=== PATIENT | female | born 1990 | race African-American/Black ===

== ENCOUNTER 2017-03-28 00:13 | Emergency (ER) | payer MEDICAID ==
[~2017-03-28] VITALS: Ht 154.9 cm; Wt 47.6 kg
[~2017-03-28 00:13] MED LIST: AVPAK LEVETIRA500 MG PO; BACLOFEN 10MG T10 MG PO; CALCITRIOL0.25 MCG PO; GABAPENTIN 600600 MG PO; KEFLEX 500MG.500 MG PO; KEPPRA750 MG PO; NORCO 325 MG-51 TAB PO; POTASSIUM CHLO10 ME3 PO; PREDNISONE 5MG.5 MG PO
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
[2017-03-28 02:18] VITALS: BP 132/93
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
--- OUTSIDE RECORDS SUMMARY | 2017-03-29 01:59 | External Medical Summary Rpt | CCD ---
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 -1 -2 .0 00 NT ti ON 25 7- 2- 00 00 UC ve AZ 41 20 20 90 [place] OL 14 17 17 94 E 6 31 CV 10 S 0 PH MG AR MA TA CY BL ET LL C, DB A CV S PH AR MA CY #0 54 37 BA 00 08 09 90 30 00 KE Ac CL 83 -1 -2 .0 00 NT ti OF 21 7- 2- 00 00 UC ve EN 02 20 20 90 [place] 41 17 17 94 10 0 24 CV S MG PH AR TA MA BL CY ET LL C, DB A CV S PH AR MA CY #0 54 37 FL 00 07 08 30 30 00 KE Ac UD 11 -2 -2 .0 00 NT ti RO 57 4- 5- 00 00 UC ve CO 03 20 20 90 [place] RT 30 17 17 47 IS 1 81 CV ON S E PH 0. AR 1 MA MG CY TA LL BL C, ET DB A CV S PH AR MA CY #0 54 37 GA 65 07 08 40 13 00 KE Ac BA 86 -2 -2 .0 00 NT ti PE 20 4- 5- 00 00 UC ve NT 52 20 20 90 [place] IN 30 17 17 47 5 82 CV 60 S 0 PH MG AR MA TA CY BL ET LL C, DB A CV S PH AR MA CY #0 54 37 SI 59 07 08 30 30 00 KE Ac RO 76 -2 -2 .0 00 NT ti LI 21 5- 5- 00 00 UC ve MU 00 20 20 90 [place] S 20 17 17 47 1 1 00 CV MG S PH TA AR BL MA ET CY LL C, DB A CV S PH AR MA CY #0 54 37 PE 45 07 08 60 1 00 KE Ac RM 80 -2 -2 .0 00 NT ti ET 20 4- 5- 00 00 UC ve HR 26 20 20 90 [place] IN 93 17 17 47 7 76 CV 5% S PH CR AR EA MA M CY LL C, DB A CV S PH AR MA CY #0 54 37 [place] 00 07 08 30 30 00 KE Ac ED 14 -2 -2 .0 00 NT ti NI 39 4- 5- 00 00 UC ve SO 73 20 20 90 [place] NE 91 17 17 47 0 77 CV 10 S PH MG AR MA TA CY BL ET LL C, DB A CV S PH AR MA CY #0 54 37 LE 00 07 08 30 30 00 KE Ac VO 37 -2 -2 .0 00 NT ti TH 81 4- 5- 00 00 UC ve YR 80 20 20 90 [place] OX 91 17 17 47 IN 0 78 CV E S 10 PH 0 AR MC MA G CY TA BL LL ET C, DB A CV S PH AR MA CY #0 54 37 [place] 51 07 08 [address] 67 -2 -2 0. 00 NT ti AT 24 4- 5- 00 00 UC ve IN 11 20 20 0 90 [place] 70 17 17 47 10 9 79 CV 0, S 00 PH 0 AR UN MA IT CY /M L LL BUCKNER C, SP DB A CV S PH AR MA CY #0 54 37 CA 23 07 08 80 20 00 KE Ac LC 15 -2 -2 .0 00 NT ti IT 50 4- 5- 00 00 UC ve RI 11 20 20 90 [place] OL 90 17 17 47 1 80 CV 0. S 5 PH MC AR G MA CA CY PS UL LL E C, DB A CV S PH AR MA CY #0 54 37 LE 43 07 08 60 15 00 KE Ac VE 54 -2 -2 .0 00 NT ti TI 70 3- 5- 00 00 UC ve RA 22 20 20 86 [place] CE 21 17 17 50 TA 5 21 CV M S 50 PH 0 AR MG MA CY TA BL LL ET C, DB A CV S PH AR MA CY #0 54 37 [place] 00 07 08 60 30 00 KE Ac ED 14 -1 -1 .0 00 NT ti NI 39 3- 8- 00 00 UC ve SO 74 20 20 83 [place] NE 01 17 17 80 5 0 31 CV S MG PH AR TA MA BL CY ET LL C, DB A CV S PH AR MA CY #0 54 37 KL 66 06 07 60 30 00 KE Ac OR 75 -2 -2 .0 00 NT ti -C 80 3- 8- 00 00 UC ve ON 17 20 20 84 [place] 00 17 17 90 M1 1 09 CV 0 S TA PH BL AR ET MA CY LL C, DB A CV S PH AR MA CY #0 54 37 HY 00 06 07 6. [address] 60 -1 -2 00 00 NT ti OC 33 5- 1- 0 00 UC ve OD 89 20 20 89 [place] ON 12 17 17 74 -A 1 90 CV CE S TA PH PR AR NO MA PH CY 7. LL 5- C, 32 5 DB A CV S PH AR MA CY #0 54 37 CL 65 06 07 28 7 00 KE Ac IN 86 -1 -2 .0 00 NT ti DA 20 5- 1- 00 00 UC ve MY 18 20 20 89 [place] CI 50 17 17 74 N 1 91 CV HC S L PH 15 AR 0 MA MG CY CA LL PS C, UL E DB A CV S PH AR MA CY #0 54 37 HY 59 06 07 60 [address] 76 -1 -1 .0 00 NT ti OC 20 4- 4- 00 00 UC ve OR 07 20 20 86 [place] TI 50 17 17 07 SO 1 28 CV NE S PH 20 AR MA MG CY TA LL BL C, ET DB A CV S PH AR MA CY #0 54 37 BA 00 06 07 90 30 00 KE Ac CL 83 -1 -1 .0 00 NT ti OF 21 4- 4- 00 00 UC ve EN 02 20 20 86 [place] 41 17 17 07 10 0 29 CV S MG PH AR TA MA BL CY ET LL C, DB A CV S PH AR MA CY #0 54 37 LE 65 06 07 60 15 00 KE Ac VE 86 -1 -1 .0 00 NT ti TI 20 4- 4- 00 00 UC ve RA 24 20 20 86 [place] CE 60 17 17 50 TA 8 21 CV M S 50 PH 0 AR MG MA CY TA BL LL ET C, DB A CV S PH AR MA CY #0 54 37 [place] 00 06 07 60 30 00 KE Ac ED 14 -1 -1 .0 00 NT ti NI 39 4- 4- 00 00 UC ve SO 74 20 20 83 [place] NE 01 17 17 80 5 0 31 CV S MG PH AR TA MA BL CY ET LL C, DB A CV S PH AR MA CY #0 54 37 [place] 00 04 05 60 30 00 KE Ac ED 14 -2 -2 .0 00 NT ti NI 39 2- 6- 00 00 UC ve SO 74 20 20 83 [place] NE 01 17 17 80 5 0 31 CV S MG PH AR TA MA BL CY ET LL C, DB A CV S PH AR MA CY #0 54 37 BA 00 04 05 90 30 00 KE Ac CL 83 -1 -1 .0 00 NT ti OF 21 8- 9- 00 00 UC ve EN 02 20 20 86 [place] 41 17 17 07 10 0 29 CV S MG PH AR TA MA BL CY ET LL C, DB A CV S PH AR MA CY #0 54 37 HY 59 04 05 60 [address] 76 -1 -1 .0 00 NT ti OC 20 8- 9- 00 00 UC ve OR 07 20 20 86 [place] TI 50 17 17 07 SO 1 28 CV NE S PH 20 AR MA MG CY TA LL BL C, ET DB A CV S PH AR MA CY #0 54 37 [place] 00 03 04 60 30 00 KE Ac ED 14 -2 -2 .0 00 NT ti NI 39 0- 1- 00 00 UC ve SO 74 20 20 83 [place] NE 01 17 17 80 5 0 31 CV S MG PH AR TA MA BL CY ET LL C, DB A CV S PH AR MA CY #0 54 37 HY 59 03 04 60 [address] 76 -0 -1 .0 00 NT ti OC 20 9- 4- 00 00 UC ve OR 07 20 20 86 [place] TI 50 17 17 07 SO 1 28 CV NE S PH 20 AR MA MG CY TA LL BL C, ET DB A CV S PH AR MA CY #0 54 37 BA 00 03 04 90 30 00 KE Ac CL 83 -0 -1 .0 00 NT ti OF 21 9- 4- 00 00 UC ve EN 02 20 20 86 [place] 41 17 17 07 10 0 29 CV S MG PH AR TA MA BL CY ET LL C, DB A CV S PH AR MA CY #0 54 37 [place] 00 02 03 60 30 00 KE Ac ED 14 -0 -1 .0 00 NT ti NI 39 9- 7- 00 00 UC ve SO 74 20 20 83 [place] NE 01 17 17 80 5 0 31 CV S MG PH AR TA MA BL CY ET LL C, DB A CV S PH AR MA CY #0 54 37 BA 00 01 02 90 30 00 KE Ac CL 83 -0 -1 .0 00 NT ti OF 21 5- 0- 00 00 UC ve EN 02 20 20 86 [place] 41 17 17 07 10 0 29 CV S MG PH AR TA MA BL CY ET LL C, DB A CV S PH AR MA CY #0 54 37 HY 59 01 02 60 [address] 76 -0 -1 .0 00 NT ti OC 20 5- 0- 00 00 UC ve OR 07 20 20 86 [place] TI 50 17 17 07 SO 1 28 CV NE S PH 20 AR MA MG CY TA LL BL C, ET DB A CV S PH AR MA CY #0 54 37 FL 00 01 02 30 30 00 KE Ac UD 11 -1 -1 .0 00 NT ti RO 57 1- 0- 00 00 UC ve CO 03 20 20 85 [place] RT 30 17 17 65 IS 1 24 CV ON S E PH 0. AR 1 MA MG CY TA LL BL C, ET DB A CV S PH AR MA CY #0 54 37 [place] 00 01 02 60 30 00 KE Ac ED 14 -1 -1 .0 00 NT ti NI 39 1- 0- 00 00 UC ve SO 74 20 20 83 [place] NE 01 17 17 80 5 0 31 CV S MG PH AR TA MA BL CY ET LL C, DB A CV S PH AR MA CY #0 54 37 GA 65 01 02 90 30 00 KE Ac BA 86 -1 -1 .0 00 NT ti PE 20 1- 0- 00 00 UC ve NT 52 20 20 86 [place] IN 30 17 17 34 5 32 CV 60 S 0 PH MG AR MA TA CY BL ET LL C, DB A CV S PH AR MA CY #0 54 37 FL 00 12 01 15 4 00 KE Ac UC 17 -0 -1 .0 00 NT ti ON 25 8- 3 00 UC ve AZ 41 20 20 85 [place] OL 14 16 17 80 E 6 63 CV 10 S 0 PH MG AR MA TA CY BL ET LL C, DB A CV S PH AR MA CY #0 54 37 CA 00 12 01 24 30 00 KE Ac LC 05 -0 -1 0. 00 NT ti IT 40 9- 3- 00 UC ve RI 00 20 20 0 85 [place] OL 72 16 17 80 5 64 CV 0. S 25 PH AR MC MA G CY CA PS LL UL C, E DB A CV S PH AR MA CY #0 54 37 AZ 00 12 01 60 30 00 KE Ac ED 14 -0 -1 .0 00 NT ti NI 39 9- 3- 00 UC ve SO 74 20 20 81 [place] NE 01 16 17 94 5 0 26 CV S MG PH AR TA MA BL CY ET LL C, DB A CV S PH AR MA CY #0 54 37 BA 00 12 90 30 00 KE Ac CL 17 -0 -1 .0 00 NT ti OF 24 9 00 UC ve EN 09 20 20 85 [place] 68 16 17 17 10 0 57 CV S MG PH AR TA MA BL CY ET LL C, DB A CV S PH AR MA CY #0 54 37 HY 59 12 01 60 [address] 76 -0 -1 .0 00 NT ti OC 20 9- 3- 00 UC ve OR 07 20 20 84 [place] TI 50 16 17 38 SO 1 86 CV NE S PH 20 AR MA MG CY TA LL BL C, ET DB A CV S PH AR MA CY #0 54 37 FL 00 12 01 30 30 00 KE Ac UD 11 -0 -0 .0 00 NT ti RO 57 1- 9- 00 00 UC ve CO 03 20 20 85 [place] RT 30 16 17 65 IS 1 24 CV ON S E PH 0. AR 1 MA MG CY TA LL BL C, ET DB A CV S PH AR MA CY #0 54 37 GA 65 12 01 90 30 00 KE Ac BA 86 -0 -0 .0 00 NT ti PE 20 1- 9- 00 UC ve NT 52 20 20 85 [place] IN 30 16 17 65 5 23 CV 60 S 0 PH MG AR MA TA CY BL ET LL C, DB A CV S PH AR MA CY #0 54 37 HY 00 10 10 0 30 3 [place] [address] 14 -2 -2 .0 LG 43 RC ti OC 31 8- 8- 00 RE 14 FELIZ ve OR 25 20 20 EN 0 NT TI 40 11 11 S SO 1 #1 KE NE 07 TA 76 N 20 # MG 10 77 TA 6 BL ET OX 00 10 10 0 10 5 WA 21 ME Ac YC 59 -2 -2 .0 LG 43 RC ti OD 10 8- 8- 00 RE 13 FELIZ ve ON 93 20 20 EN 9 NT -A 30 11 11 S CE 1 #1 KE TA 07 TA PR 76 N NO # PH EN 10 77 7. 6 5- 32 5 00 10 10 0 15 3 WA 21 WA Ac 59 -1 -1 .0 LG 38 GN ti 10 6- 6- 00 RE 31 ER ve 34 20 20 EN 4 90 11 11 S PH 5 #1 IL 07 LI 76 P # L 10 77 6 ME 68 10 10 0 7. 7 WA 21 WA Ac LO 18 -1 -1 00 LG 38 GN ti XI 00 6- 6- 0 RE 31 ER ve CA 50 20 20 EN 5 M 10 11 11 S PH 7. 3 #1 IL 5 07 LI MG 76 P # L TA BL 10 ET 77 6 CR 00 09 09 0 90 30 WA 21 YA Ac EO 03 -2 -2 .0 LG 32 ZI ti N 21 9- 9- 00 [address] 22 20 20 EN 4 40 11 11 S NA 24 1 #1 DA ,0 07 A 00 76 # UN IT 10 S 77 CA 6 PS UL E 00 09 09 0 40 30 WA 21 YA Ac 14 -2 -2 .0 LG 31 ZI ti 31 7- 8- 00 RE 24 GI ve 47 20 20 EN 3 31 11 11 S NA 0 #1 DA 07 A 76 # 10 77 6 RA 00 09 09 0 30 30 WA 21 YA Ac PA 00 -2 -2 .0 LG 31 ZI ti MU 81 7- 8- 00 RE 24 GI ve NE 04 20 20 EN 0 2 20 11 11 S NA 5 #1 DA MG 07 A 76 TA # BL ET 10 77 6 CA 00 09 09 0 30 30 WA 21 YA Ac LC 09 -2 -2 .0 LG 31 ZI ti IT 30 7- 7- 00 RE 24 GI ve RI 65 20 20 EN 1 OL 70 11 11 S NA 1 #1 DA 0. 07 A 25 76 # MC G 10 CA 77 PS 6 UL E LE 68 09 09 0 60 30 WA 21 YA Ac VE 18 -2 -2 .0 LG 31 ZI ti TI 00 7- 7- 00 RE 24 GI ve RA 11 20 20 EN 2 CE 41 11 11 S NA TA 6 #1 DA M 07 A 75 76 0 # MG 10 TA 77 BL 6 ET FL 68 09 09 0 14 14 WA 21 YA Ac UC 46 -2 -2 .0 LG 31 ZI ti ON 20 7- 7- 00 RE 24 GI ve AZ 10 20 20 EN 4 OL 43 11 11 S NA E 0 #1 DA 20 07 A 0 76 MG # TA 10 BL 77 ET 6 FL 00 09 09 0 30 30 WA 21 YA Ac UD 55 -2 -2 .0 LG 31 ZI ti RO 50 7- 7- 00 RE 24 GI ve CO 99 20 20 EN 5 RT 70 11 11 S NA IS 2 #1 DA ON 07 A E 76 0. # 1 MG 10 77 TA 6 BL ET LE 00 09 09 6 30 30 WA 21 YA Ac VO 52 -2 -2 .0 LG 31 ZI ti TH 71 7- 7- 00 RE 24 GI ve YR 34 20 20 EN 6 OX 51 11 11 S NA IN 0 #1 DA E 07 A 10 76 0 # MC G 10 TA 77 BL 6 ET 00 09 09 0 14 7 WA 21 YA Ac 14 -2 -2 .0 LG 28 ZI ti 31 1- 1- 00 RE 98 GI ve 47 20 20 EN 8 31 11 11 S NA 0 #1 DA 07 A 76 # 10 77 6 00 08 08 2 28 28 WA 21 KA Ac 43 -0 -2 .0 LG 11 LF ti 00 2- 9- 00 RE 06 ve 53 20 20 EN 1 01 11 11 S PR 4 #1 NA 07 C 76 # 10 77 6 FL 00 08 08 0 2. 2 WA 21 AN Ac UC 17 -2 -2 00 LG 19 DE ti ON 25 5- 5- 0 RE 28 RS ve AZ 41 20 20 EN 2 ON OL 21 11 11 S E 1 #1 TI 15 07 MO 0 76 TH MG # Y K TA 10 BL 77 ET 6 BUCKNER 53 08 08 0 40 10 WA 21 AN Ac LF 74 -2 -2 .0 LG 19 DE ti AM 60 5- 5- 00 RE 28 RS ve ET 27 20 20 EN 1 ON HO 20 11 11 S XA 5 #1 TI ZO 07 MO LE 76 TH -T # Y MP K 10 DS 77 6 TA BL ET CE 00 08 08 0 40 10 WA 21 AN Ac PH 09 -2 -2 .0 LG 19 DE ti AL 33 5- 5- 00 RE 28 RS ve EX 14 20 20 EN 0 ON IN 70 11 11 S 5 #1 TI 50 07 MO 0 76 TH MG # Y K CA 10 PS 77 UL 6 E LE 00 01 08 6 30 30 WA 20 RO Ac VO 52 -1 -2 .0 LG 45 SE ti TH 71 8- 4- 00 RE 28 ve YR 34 20 20 EN 7 BUCKNER OX 51 11 11 S SA IN 0 #1 N E 07 R 10 76 0 # MC G 10 TA 77 BL 6 ET LE 68 05 08 2 60 30 WA 21 SC Ac VE 18 -1 -2 .0 LG 00 FELIZ ti TI 00 6- 4- 00 RE 02 CK ve RA 11 20 20 EN 3 CE 41 11 11 S BR TA 6 #1 IA M 07 N 75 76 0 # MG 10 TA 77 BL 6 ET 00 06 08 3 15 30 WA 21 KA Ac 14 -2 -0 .0 LG 00 LF ti 31 9- 2- 00 RE 05 ve 47 20 20 EN 4 31 11 11 S PR 0 #1 NA 07 C 76 # 10 77 6 00 08 08 2 28 28 WA 21 KA Ac 43 -0 -0 .0 LG 11 LF ti 00 2- 2- 00 RE 06 ve 53 20 20 EN 1 01 11 11 S PR 4 #1 NA 07 C 76 # 10 77 6 VA 00 07 07 0 4. 2 CV 57 KA Ac LT 17 -2 -2 00 S 90 LF ti RE 30 7- 7- 0 PH 74 ve X 56 20 20 AR 1 50 11 11 MA PR GM 4 CY NA # C CA PL 05 ET 43 7 LE 00 01 07 6 30 30 WA 20 RO Ac VO 52 -1 -2 .0 LG 45 SE ti TH 71 8- 3- 00 RE 28 ve YR 34 20 20 EN 7 BUCKNER OX 51 11 11 S SA IN 0 #1 N E 07 R 10 76 0 # MC G 10 TA 77 BL 6 ET CA 00 07 07 0 24 30 WA 21 KA Ac LC 09 -2 -2 0. LG 06 LF ti IT 30 0- 0- 00 RE 78 ve RI 65 20 20 0 EN 8 OL 80 11 11 S PR 1 #1 NA 0. 07 C 5 76 MC # G CA 10 PS 77 UL 6 E LE 68 05 06 2 60 30 WA 21 SC Ac VE 18 -1 -2 .0 LG 00 FELIZ ti TI 00 6 00 RE 02 CK ve RA 11 20 20 EN 3 CE 41 11 11 S BR TA 6 #1 IA M 07 N 75 76 0 # MG 10 TA 77 BL 6 ET 00 06 06 3 15 30 WA 21 KA Ac 14 -2 -2 .0 LG 00 LF ti 31 9- 9 00 RE 05 ve 47 20 20 EN 4 31 11 11 S PR 0 #1 NA 07 C 76 # 10 77 6 LE 00 01 06 6 30 30 WA 20 RO Ac VO 52 -1 -1 .0 LG 45 SE ti TH 71 8- 8- 00 RE 28 ve YR 34 20 20 EN 7 BUCKNER OX 51 11 11 S SA IN 0 #1 N E 07 R 10 76 0 # MC G 10 TA 77 BL 6 ET BUCKNER 61 06 06 0 15 10 WA 20 AN Ac LF 31 -1 -1 .0 LG 94 DE ti AC 40 3- 3- 00 RE 57 RS ve ET 70 20 20 EN 3 ON AM 10 11 11 S ID 1 #1 TI E 07 MO 10 76 TH % # Y EY K E 10 DR 77 OP 6 S 00 05 05 2 15 30 WA 20 KA Ac 14 -1 -2 .0 LG 83 LF ti 31 3 00 RE 65 ve 47 20 20 EN 4 31 11 11 S PR 0 #1 NA 07 C 76 # 10 77 6 AZ 00 05 05 0 15 3 WA 20 NE Ac OM 78 -2 -2 .0 LG 89 WM ti ET 11 00 RE 40 AN ve FELIZ 83 20 20 EN 4 ZI 00 11 11 S LY NE 1 #1 ND 07 A 25 76 L # MG 10 TA 77 BL 6 ET 00 05 05 0 12 2 WA 20 HO Ac 59 -1 -1 .0 LG 85 RN ti 10 8- 8- 00 RE 67 E ve 34 20 20 EN 9 JE 90 11 11 S SS 5 #1 IC 07 A 76 G # 10 77 6 CY 59 05 05 0 7. 7 WA 20 HO Ac CL 74 -1 -1 00 LG 85 RN ti OB 60 8- 8- 0 RE 68 E ve EN 17 20 20 EN 0 JE ZA 71 11 11 S SS AZ 0 #1 IC IN 07 A E 76 G 10 # MG 10 77 TA 6 BL ET LE 00 01 05 6 30 30 WA 20 RO Ac VO 52 -1 -1 .0 LG 45 SE ti TH 71 8- 2- 00 RE 28 ve YR 34 20 20 EN 7 BUCKNER OX 51 11 11 S SA IN 0 #1 N E 07 R 10 76 0 # MC G 10 TA 77 BL 6 ET FL 00 04 04 1 15 13 WA 20 No Ac UC 17 -3 -3 .0 LG 79 t ti ON 25 0- 0- 00 RE 18 Av ve AZ 41 20 20 EN 7 ai OL 14 11 11 S la E 6 #1 bl 10 07 e 0 76 MG # TA 10 BL 77 ET 6 00 03 04 2 15 30 WA 20 KA Ac 14 -0 -2 .0 LG 60 LF ti 31 8- 2- 00 RE 76 ve 47 20 20 EN 9 31 11 11 S PR 0 #1 NA 07 C 76 # 10 77 6 LE 68 04 04 0 60 30 WA 20 SC Ac VE 18 -2 -2 .0 LG 76 FELIZ ti TI 00 2- 2- 00 RE 47 CK ve RA 11 20 20 EN 5 CE 41 11 11 S BR TA 6 #1 IA M 07 N 75 76 0 # MG 10 TA 77 BL 6 ET LE 00 01 04 6 30 30 WA 20 RO Ac VO 52 -1 -0 .0 LG 45 SE ti TH 71 8- 6- 00 RE 28 ve YR 34 20 20 EN 7 BUCKNER OX 51 11 11 S SA IN 0 #1 N E 07 R 10 76 0 # MC G 10 TA 77 BL 6 ET 00 03 03 2 15 30 WA 20 KA Ac 14 -0 -0 .0 LG 60 LF ti 31 8- 8- 00 RE 76 ve 47 20 20 EN 9 31 11 11 S PR 0 #1 NA 07 C 76 # 10 77 6 LE 00 01 03 6 30 30 WA 20 RO Ac VO 52 -1 -0 .0 LG 45 SE ti TH 71 8- 1- 00 RE 28 ve YR 34 20 20 EN 7 BUCKNER OX 51 11 11 S SA IN 0 #1 N E 07 R 10 76 0 # MC G 10 TA 77 BL 6 ET 00 02 02 0 [address] Ac 60 -2 -2 0. LG 56 AC ti 31 2- 2- 00 RE 03 K ve 29 [address] 55 11 11 S EV 8 #1 EN 07 J 76 # 10 77 6 [place] 00 02 02 0 [address] 60 -2 -2 0. LG 56 AC ti AT 31 2- 2- 00 RE 03 K ve IN 48 [address] 15 11 11 S EV 10 8 #1 EN 0, 07 J 00 76 0 # UN IT 10 /M 77 L 6 BUCKNER SP LE 68 02 02 0 60 30 WA 20 SC Ac VE 18 -1 -1 .0 LG 52 FELIZ ti TI 00 2- 2- 00 RE 41 CK ve RA 11 20 20 EN 8 CE 41 11 11 S BR TA 6 #1 IA M 07 N 75 76 0 # MG 10 TA 77 BL 6 ET LE 00 01 01 6 30 30 WA 20 RO Ac VO 52 -1 -2 .0 LG 45 SE ti TH 71 8- 3- 00 RE 28 ve YR 34 20 20 EN 7 BUCKNER OX 51 11 11 S SA IN 0 #1 N E 07 R 10 76 0 # MC G 10 TA 77 BL 6 ET AZ 00 01 01 2 60 30 CV 53 BE Ac ED 59 -1 -1 .0 S 54 ZE ti NI 15 1- 2- 00 PH 02 RR ve SO 05 20 20 AR A NE 21 11 11 MA SARAH 5 0 CY RG # E MG A 06 TA 94 BL 2 ET 00 08 01 5 28 28 WA 30 KA Ac 43 -3 -0 .0 LG 58 LF ti 00 1- 1- 00 RE 97 ve 53 20 20 EN 1 01 10 11 S PR 4 #7 NA 34 C 6 # 73 46 RA 00 06 01 1 60 30 WA 31 YA Ac PA 00 -0 -0 .0 LG 16 ZI ti MU 81 6- 1- 00 RE 47 GI ve NE 04 20 20 EN 2 1 10 10 11 S NA 5 #7 DA MG 34 A 6 TA # BL 73 ET 46 00 12 12 0 12 2 WA 31 EM Ac 59 -3 -3 .0 LG 15 ER ti 10 0- 0- 00 RE 60 Y ve 34 20 20 EN 3 DA 90 10 10 S RY 5 #7 L 34 L 6 # 73 46 LE 00 12 12 1 30 30 WA 31 RO Ac VO 52 -2 -2 .0 LG 10 SE ti TH 71 9- 0- 00 RE 56 ve YR 34 20 20 EN 8 BUCKNER OX 51 09 10 S SA IN 0 #7 N E 34 R 10 6 0 # MC 73 G 46 TA BL ET RA 00 08 12 8 30 30 CV 55 YA Ac PA 00 -0 -0 .0 S 29 ZI ti MU 81 5- 6- 00 PH 94 GI ve NE 04 20 20 AR 2 20 10 10 MA NA 5 CY DA MG # A TA 05 BL 43 ET 7 AZ 00 09 12 0 60 30 CV 55 BE Ac ED 59 -1 -0 .0 S 29 ZE ti NI 15 4- 6- 00 PH 78 RR ve SO 05 20 20 AR A NE 21 10 10 MA SARAH 5 0 CY RG # E MG A 05 TA 43 BL 7 ET FL 00 12 12 0 14 14 CV 55 TH Ac UC 17 -0 -0 .0 S 23 OR ti ON 25 1- 00 PH 73 NT ve AZ 41 20 20 AR ON OL 14 10 10 MA E 6 CY SH 10 # EL 0 BY MG 05 43 TA 7 BL ET AM 00 12 12 0 28 14 CV 55 TH Ac OX 78 -0 -0 .0 S 23 OR ti IC 12 1- PH 72 NT ve IL 61 20 20 AR ON LI 30 10 10 MA N 5 CY SH 50 # EL 0 BY MG 05 43 CA 7 PS UL E SE 59 11 11 2 30 30 CV 55 TH Ac RT 76 -2 -2 .0 S 15 OR ti RA 24 3- 3- 00 PH 57 NT ve LI 91 20 20 AR ON NE 00 10 10 MA 5 CY SH HC # EL L BY 10 05 0 43 MG 7 TA BL ET AC 00 11 11 0 12 1 WA 30 EM Ac ET 60 -1 -1 .0 LG 92 ER ti AM 32 0- 0- 00 RE 35 Y ve IN 33 20 20 EN 6 DA OP 83 10 10 S RY HE 2 #7 L N- 34 L CO 6 D # #3 73 46 TA BL ET RA 00 08 11 11 30 30 WA 30 YA Ac PA 00 -0 -0 .0 LG 47 ZI ti MU 81 5- 9- 00 RE 36 GI ve NE 04 20 20 EN 3 2 20 10 10 S NA 5 #7 DA MG 34 A 6 TA # BL 73 ET 46 FL 00 04 11 0 30 30 WA 30 RO Ac UD 55 -1 -0 .0 LG 90 SE ti RO 50 3- 7- 00 RE 54 ve CO 99 20 20 EN 0 BUCKNER [address] 70 10 10 S SA IS 2 #7 N ON 34 R E 6 0. # 1 73 MG 46 TA BL ET LE 00 12 11 2 30 30 WA 30 RO Ac VO 37 -2 -0 .0 LG 90 SE ti TH 81 9- 7- 00 RE 54 ve YR 80 20 20 EN 1 BUCKNER OX 90 09 10 S SA IN 1 #7 N E 34 R 10 6 0 # MC 73 G 46 TA BL ET LE 68 10 11 0 60 30 WA 96 HO Ac VE 18 -2 -0 .0 LG 52 PK ti TI 00 9- 2- 00 RE 76 IN ve RA 11 20 20 EN S CE 41 10 10 S SA TA 6 #4 RA M 08 H 75 2 E 0 # MG 40 82 TA BL ET AZ 00 10 10 0 10 3 WA 74 TH Ac OM 60 -2 -2 .0 LG 31 OR ti ET 35 2- 2- 00 RE 15 NT ve FELIZ 43 20 20 EN ON ZI 72 10 10 S NE 1 #7 SH 09 EL 12 3 BY .5 # 70 MG 93 TA BL ET 00 09 10 1 60 30 WA 96 BE Ac 14 -1 -2 .0 LG 15 ZE ti 31 4- 1- 00 RE 46 RR ve 47 20 20 EN A 51 10 10 S SARAH 0 #4 RG 08 E 2 A # 40 82 CA 00 04 10 1 48 30 WA 91 HO Ac LC 09 -2 -2 0. LG 27 WE ti IT 30 0- 1- 00 RE 78 LL ve RI 65 20 20 0 EN OL 80 10 10 S SARAH 1 #4 NA 0. 08 TH 5 2 AN MC # C G 40 CA 82 PS UL E CI 16 10 10 0 14 7 WA 30 SH Ac AZ 25 -1 -2 .0 LG 81 IE ti OF 20 8- 0- 00 RE 91 LD ve LO 51 20 20 EN 6 S XA 50 10 10 S DA CI 1 #7 NI N 34 EL HC 6 L # 50 73 0 46 MG TA B LE 00 12 09 8 30 30 WA 91 RO Ac VO 52 -2 -2 .0 LG 58 SE ti TH 71 9- 6- 00 RE 01 ve YR 34 20 20 EN [place] 51 09 10 S SA IN 0 #4 N E 08 R 10 2 0 # MC 40 G 82 TA BL ET LE 68 10 09 3 60 30 WA 94 AR Ac VE 18 -0 -2 .0 LG 51 TH ti TI 00 1- 6- 00 RE 36 UR ve RA 11 20 20 EN CE 41 09 10 S TO TA 6 #4 DD M 08 75 2 0 # MG 40 82 TA BL ET 00 09 09 2 60 30 WA 30 BE Ac 14 -1 -1 .0 LG 64 ZE ti 31 4- 4- 00 RE 98 RR ve 47 20 20 EN 1 A 51 10 10 S SARAH 0 #7 RG 34 E 6 A # 73 46 FL 00 04 09 0 30 30 WA 95 RO Ac UD 55 -1 -1 .0 LG 00 SE ti RO 50 3- 3- 00 RE 26 ve CO 99 20 20 EN BUCKNER RT 70 10 10 S SA IS 2 #4 N ON 08 R E 2 0. # 1 40 MG 82 TA BL ET RA 00 08 09 11 30 30 WA 30 YA Ac PA 00 -0 -0 .0 LG 47 ZI ti MU 81 5- 3- 00 RE 36 GI ve NE 04 20 20 EN 3 2 20 10 10 S NA 5 #7 DA MG 34 A 6 TA # BL 73 ET 46 SE 59 08 09 3 15 32 WA 30 KA Ac RT 76 -3 -0 .0 LG 58 LF ti RA 24 1- 2- 00 RE 97 ve LI 91 20 20 EN 0 NE 00 10 10 S PR 5 #7 NA HC 34 C L 6 10 # 0 73 MG 46 TA BL ET 00 08 08 5 28 28 WA 30 KA Ac 43 -3 -3 .0 LG 58 LF ti 00 1- 1- 00 RE 97 ve 53 20 20 EN 1 01 10 10 S PR 4 #7 NA 34 C 6 # 73 46 LE 00 12 08 8 30 30 WA 91 RO Ac VO 52 -2 -2 .0 LG 58 SE ti TH 71 9- 4- 00 RE 01 ve YR 34 20 20 EN [place] 51 09 10 S SA IN 0 #4 N E 08 R 10 2 0 # MC 40 G 82 TA BL ET LE 68 10 08 3 60 30 WA 94 AR Ac VE 18 -0 -2 .0 LG 51 TH ti TI 00 1- 4- 00 RE 36 UR ve RA 11 20 20 EN CE 41 09 10 S TO TA 6 #4 DD M 08 75 2 0 # MG 40 82 TA BL ET 00 02 08 18 28 NU 36 FI Ac 05 -0 -1 4. FA 91 LI ti 37 3- 8- 00 CT 1 PO ve 59 20 20 0 OR 62 10 10 CH [address] A H CY 59 08 08 0 15 5 WA 30 PR Ac CL 74 -1 -1 .0 LG 51 LL ti OB 60 5- 5- 00 RE 80 ER ve EN 17 20 20 EN 1 ZA 71 10 10 S BR AZ 0 #7 IA IN 34 N E 6 J 10 # 73 MG 46 TA BL ET FL 00 04 08 0 30 30 WA 30 RO Ac UD 11 -1 -0 .0 LG 45 SE ti RO 57 3- 8- 00 RE 21 ve CO 03 20 20 EN 6 BUCKNER RT 30 10 10 S SA IS 1 #7 N ON 34 R E 6 0. # 1 73 MG 46 TA BL ET RA 00 08 08 11 30 30 WA 30 YA Ac PA 00 -0 -0 .0 LG 47 ZI ti MU 81 5- 5- 00 RE 36 GI ve NE 04 20 20 EN 3 2 20 10 10 S NA 5 #7 DA MG 34 A 6 TA # BL 73 ET 46 FL 00 07 07 1 15 13 WA 30 YA Ac UC 17 -3 -3 .0 LG 45 ZI ti ON 25 1 00 RE 15 GI ve AZ 41 20 20 EN 9 OL 14 10 10 S NA E 6 #7 DA 10 34 A 0 6 MG # 73 TA 46 BL ET LE 00 12 07 8 30 30 WA 91 RO Ac VO 52 -2 -2 .0 LG 58 SE ti TH 71 9- 4- 00 RE 01 ve YR 34 20 20 EN [place] 51 09 10 S SA IN 0 #4 N E 08 R 10 2 0 # MC 40 G 82 TA BL ET LE 00 10 07 5 60 30 WA 93 AR Ac VE 37 -0 -2 .0 LG 05 TH ti TI 85 1- 4- 00 RE 40 UR ve RA 61 20 20 EN CE 77 09 10 S TO TA 8 #4 DD M 08 75 2 0 # MG 40 82 TA BL ET 00 08 07 2 60 30 WA 91 YA Ac 14 -1 -1 .0 LG 95 ZI ti 31 4- 6- 00 RE 17 GI ve 47 20 20 EN 31 09 10 S NA 0 #4 DA 08 A 2 # 40 82 00 02 07 18 28 NU 36 FI Ac 05 -0 -0 4. FA 91 LI ti 37 3- 6- 00 CT 1 PO ve 59 20 20 0 OR 62 10 10 CH [address] A H LE 00 10 06 5 60 30 WA 93 AR Ac VE 37 -0 -2 .0 LG 05 TH ti TI 85 1- 8- 00 RE 40 UR ve RA 61 20 20 EN CE 77 09 10 S TO TA 8 #4 DD M 08 75 2 0 # MG 40 82 TA BL ET LE 00 12 06 8 30 30 WA 91 RO Ac VO 52 -2 -2 .0 LG 58 SE ti TH 71 9- 7- 00 RE 01 ve YR 34 20 20 EN [place] 51 09 10 S SA IN 0 #4 N E 08 R 10 2 0 # MC 40 G 82 TA BL ET FL 00 04 06 0 30 30 WA 91 RO Ac UD 11 -1 -2 .0 LG 06 SE ti RO 57 3- 7- 00 RE 06 ve CO 03 20 20 EN BUCKNER RT 30 10 10 S SA IS 1 #4 N ON 08 R E 2 0. # 1 40 MG 82 TA BL ET RA 00 06 06 0 60 30 92 YA Ac PA 00 -0 -0 .0 LG 33 ZI ti MU 81 5- 5- 00 RE 06 GI ve NE 04 20 20 EN 1 10 10 10 S NA 5 #4 DA MG 08 A 2 TA # BL 40 ET 82 BU[place]NER 61 06 06 0 15 15 MD 92 KA Ac LF 31 -0 -0 .0 LG 38 LF ti AC 40 1- 1- 00 RE 56 ve ET 70 20 20 EN AM 10 10 10 S PR ID 1 #4 NA E 08 C 10 2 % # EY [address] OP S LE 00 12 05 8 30 30 91 RO Ac VO 52 -2 -2 .0 LG 58 SE ti TH 71 9- 9- 00 RE 01 ve YR 34 20 20 EN [place] 51 09 10 S SA IN 0 #4 N E 08 R 10 2 0 # MC 40 G 82 TA BL ET LE 68 10 05 7 60 30 WA 91 AR Ac VE 18 -0 -2 .0 LG 20 TH ti TI 00 1- 2- 00 RE 06 UR ve RA 11 20 20 EN CE 41 09 10 S TO TA 6 #4 DD M 08 75 2 0 # MG 40 82 TA BL ET 00 12 05 2 84 84 91 RO Ac 43 -2 -1 .0 LG 95 SE ti 00 9- 5- 00 RE 18 ve 53 20 20 EN [facility] 01 09 10 S SA 4 #4 N 08 R 2 # 40 82 FL 00 04 05 0 30 30 91 RO Ac UD 11 -1 -1 .0 LG 06 SE ti RO 57 3- 5- 00 RE 06 ve CO 03 20 20 EN [place] RT 30 10 10 S SA IS 1 #4 N ON 08 R E 2 0. # 1 40 MG 82 TA BL ET 00 08 05 2 60 30 91 YA Ac 14 -1 -1 .0 LG 95 ZI ti 31 4- 5- 00 RE 17 GI ve 47 20 20 EN 31 09 10 S NA 0 #4 DA 08 A 2 # 40 82 AC 00 05 05 0 12 2 91 EL Ac ET 60 -1 -1 .0 LG 83 LE ti AM 32 1- 1- 00 RE 55 MA ve IN 33 20 20 EN N OP 83 10 10 S PR HE 2 #4 CH N- 08 AE CO 2 L D # #3 40 82 TA BL ET LE 00 12 05 8 30 30 91 RO Ac VO 52 -2 -0 .0 LG 58 SE ti TH 71 9- 1- 00 RE 01 ve YR 34 20 20 EN [place] 51 09 10 S SA IN 0 #4 N E 08 R 10 2 0 # MC 40 G 82 TA BL ET CA 00 04 04 1 48 30 91 HO Ac LC 09 -2 -2 0. LG 27 WE ti IT 30 0- 1- 00 RE 78 LL ve RI 65 20 20 0 EN OL 80 10 10 S SARAH 1 #4 NA 0. 08 TH 5 2 AN MC # C G 40 CA 82 PS UL E LE 68 10 04 7 60 30 91 AR Ac VE 18 -0 -1 .0 LG 20 TH ti TI 00 1- 7- 00 RE 06 UR ve RA 11 20 20 EN CE 41 09 10 S TO TA 6 #4 DD M 08 75 2 0 # MG 40 82 TA BL ET FL 00 04 04 0 30 30 91 RO Ac UD 11 -1 -1 .0 LG 06 SE ti RO 57 3- 3- 00 RE 06 ve CO 03 20 20 EN [facility] RT 30 10 10 S SA IS 1 #4 N ON 08 R E 2 0. # 1 40 MG 82 TA BL ET RA 00 04 04 0 60 30 91 YA Ac PA 00 -1 -1 .0 LG 08 ZI ti MU 81 3- 3- 00 RE 12 GI ve NE 04 20 20 EN 1 10 10 10 S NA 5 #4 DA MG 08 A 2 TA # BL 40 ET 82 LE 00 12 03 11 30 30 WA 29 RO Ac VO 52 -2 -3 .0 LG 47 SE ti TH 71 9- 1- 00 RE 11 ve YR 34 20 20 EN 4 [place] 51 09 10 S SA IN 0 #7 N E 34 R 10 6 0 # MC 73 G 46 TA BL ET 00 12 03 4 84 84 WA 29 RO Ac 43 -2 -1 .0 LG 47 SE ti 00 9- 3- 00 RE 11 ve 53 20 20 EN 3 [facility] 01 09 10 S SA 4 #7 N 34 R 6 # 73 46 LE 68 10 03 12 60 30 WA 29 AR Ac VE 18 -0 -1 .0 LG 09 TH ti TI 00 1- 3 RE 96 UR ve RA 11 20 20 EN 5 CE 41 09 10 S TO TA 6 #7 DD M 34 75 6 0 # MG 73 46 TA BL ET CA 00 03 03 0 80 5 WA 90 No Ac LC 09 -0 -0 .0 LG 10 t ti IT 30 7 7- 00 RE 26 Av ve RI 65 20 20 EN ai OL 80 10 10 S la 1 #4 bl 0. 08 e 5 2 MC # G 40 CA 82 PS UL E CH 00 11 02 01 30 30 WA 29 JA Ac LO 37 -0 -1 .0 LG 17 CK ti RO 80 3- 1- 00 RE 63 SO ve TH 15 20 20 EN 6 N IA 00 09 10 # EL ZI 1 IZ DE 07 AB 34 ET 25 6 H 0 C MG TA BL ET LE 68 10 02 03 60 30 WA 29 AR Ac VE 18 -0 -1 .0 LG 09 TH ti TI 00 1- RE 96 UR ve RA 11 20 20 EN 5 CE 41 09 10 # TO TA 6 DD M 07 75 34 0 6 MG TA BL ET AM 00 01 01 00 28 14 CV 51 KA Ac OX 09 -1 -2 .0 S 86 LF ti IC 33 4- 8- 00 PH 13 ve IL 10 20 20 AR LI 90 10 10 MA PR N 5 CY NA 50 C 0 #5 MG 43 7 CA PS UL E FL 00 01 01 00 15 14 CV 51 KA Ac UC 17 -1 -2 .0 S 86 LF ti ON 25 4- 8- 00 PH 12 ve AZ 41 20 20 AR OL 14 10 10 MA PR E 6 CY NA 10 C 0 #5 MG 43 7 TA BL ET HY 00 01 01 00 30 5 CV [address] 55 -0 -1 .0 S 78 LF ti OX 50 6- 4- 00 PH 61 ve YZ 30 20 20 AR IN 20 10 10 MA PR E 2 CY NA PA C M #5 50 43 7 MG CA P AZ 00 08 01 02 60 30 WA 28 YA Ac ED 59 -1 -1 .0 LG 77 ZI ti NI 15 4- 4- 00 RE 12 GI ve SO 44 20 20 EN 1 NE 20 09 10 # NA 5 DA 10 07 A 34 MG 6 TA BL ET LE 00 12 01 00 30 30 WA 29 RO Ac VO 52 -2 -1 .0 LG 47 SE ti TH 71 9- 4- 00 RE 11 ve YR 34 20 20 EN 4 [place] 51 09 10 # SA IN 0 N E 07 R 10 34 0 6 MC G TA BL ET 00 12 01 00 84 84 WA 29 RO Ac 43 -2 -1 .0 LG 47 SE ti 00 9- 4- 00 RE 11 ve 53 20 20 EN 3 [facility] 01 09 10 # SA 4 N 07 R 34 6 FL 00 12 12 00 15 13 WA 29 YA Ac UC 17 -2 -3 .0 LG 42 ZI ti ON 25 3- - 00 RE 24 GI ve AZ 41 20 20 EN 4 OL 14 09 09 # NA E 6 DA 10 07 A 0 34 MG 6 TA BL ET LE 68 10 12 02 60 30 WA 29 AR Ac VE 18 -0 -3 .0 LG 09 TH ti TI 00 1- - 00 RE 96 UR ve RA 11 20 20 EN 5 CE 41 09 09 # TO TA 6 DD M 07 75 34 0 6 MG TA BL ET 00 08 12 04 28 28 WA 28 No Ac 43 -1 -1 .0 LG 77 t ti 00 5- 7- 00 RE 58 Av ve 53 20 20 EN 8 ai 01 09 09 # la 4 bl 07 e 34 6 VA 00 11 12 00 14 7 WA 29 KA Ac LT 17 -3 -1 .0 LG 30 LF ti RE 30 0- 7- 00 RE 75 ve X 56 20 20 EN 7 1 50 09 09 # PR GM 4 NA 07 C CA 34 PL 6 ET 00 01 12 05 18 28 NU 32 FI Ac 05 -0 -1 4. FA 08 LI ti 37 7- 7- 00 CT 2 PO ve 59 20 20 0 OR 62 09 09 CH 0 IN C AL EX AN DR A H FL 00 11 12 00 12 10 WA 29 YA Ac UC 17 -2 -0 .0 LG 27 ZI ti ON 25 3- 3- 00 RE 67 GI ve AZ 41 20 20 EN 1 OL 14 09 09 # NA E 6 DA 10 07 A 0 34 MG 6 TA BL ET LE 68 10 12 01 60 30 WA 29 AR Ac VE 18 -0 -0 .0 LG 09 TH ti TI 00 1- 3- 00 RE 96 UR ve RA 11 20 20 EN 5 CE 41 09 09 # TO TA 6 DD M 07 75 34 0 6 MG TA BL ET LE 00 05 12 05 30 30 WA 28 RO Ac VO 52 -1 -0 .0 LG 55 SE ti TH 71 3- 3 00 RE 67 ve YR 34 20 20 EN 9 [place] 51 09 09 # SA IN 0 N E 07 R 10 34 0 6 MC G TA BL ET 00 11 11 00 20 3 WA 29 No Ac 59 -1 -1 .0 LG 22 t ti 10 3 9 00 RE 82 Av ve 34 20 20 EN 9 ai 90 09 09 # la 5 bl 07 e 34 6 00 08 11 03 28 28 WA 28 No Ac 43 -1 -1 .0 LG 77 t ti 00 00 RE 58 Av ve 53 20 20 EN 8 ai 01 09 09 # la 4 bl 07 e 34 6 PE 00 11 11 00 40 10 WA 29 No Ac NI 09 -1 -1 .0 LG 22 t ti CI 31 RE 82 Av ve LL 17 20 20 EN 8 ai IN 41 09 09 # la 0 bl VK 07 e 34 50 6 0 MG TA BL ET RA 00 05 11 02 30 30 WA 28 YA Ac PA 00 -2 -1 .0 LG 38 ZI ti MU 81 00 RE 81 GI ve NE 04 20 20 EN 3 2 20 09 09 # NA 5 DA MG 07 A 34 TA 6 BL ET AZ 00 08 11 01 60 30 WA 28 YA Ac ED 59 -1 -1 .0 LG 77 ZI ti NI 15 4 9 00 RE 12 GI ve SO 44 20 20 EN 1 NE 20 09 09 # NA 5 DA 10 07 A 34 MG 6 TA BL ET FL 00 09 11 01 14 13 WA 28 YA Ac UC 17 -2 -1 .0 LG 95 ZI ti ON 25 00 RE 15 GI ve AZ 41 20 20 EN 5 OL 14 09 09 # NA E 6 DA 10 07 A 0 34 MG 6 TA BL ET CH 00 11 11 00 30 30 WA 29 JA Ac LO 37 -0 -1 .0 LG 17 CK ti RO 80 3 9- 00 RE 63 SO ve TH 15 20 20 EN 6 N IA 00 09 09 # EL ZI 1 IZ DE 07 AB 34 ET 25 6 H 0 C MG TA BL ET LE 68 10 11 00 60 30 WA 29 AR Ac VE 18 -0 -0 .0 LG 09 TH ti TI 00 00 RE 96 UR ve RA 11 20 20 EN 5 CE 41 09 09 # TO TA 6 DD M 07 75 34 0 6 MG TA BL ET LE 00 05 11 04 30 30 WA 28 RO Ac VO 52 -1 -0 .0 LG 55 SE ti TH 71 3- 5- 00 RE 67 ve YR 34 20 20 EN 9 [place] 51 09 09 # SA IN 0 N E 07 R 10 34 0 6 MC G TA BL ET 00 01 10 18 21 NU 32 FI Ac 05 -0 -2 4. FA 80 LI ti 37 7- 8- 00 CT 3 PO ve 59 20 20 0 OR 62 09 09 CH [address] A H 00 08 10 02 28 28 WA 28 No Ac 43 -1 -2 .0 LG 77 t ti 00 5- 2- 00 RE 58 Av ve 53 20 20 EN 8 ai 01 09 09 # la 4 bl 07 e 34 6 LE 00 03 10 04 60 30 WA 28 GI Ac VE 37 -2 -0 .0 LG 46 LB ti TI 85 3- 8- 00 RE 19 ER ve RA 61 20 20 EN 2 T CE 77 09 09 # DO TA 8 NA M 07 LD 75 34 L 0 6 MG TA BL ET FL 00 09 10 00 14 13 28 YA Ac UC 17 -2 -0 .0 LG 95 ZI ti ON 25 1- 8- 00 RE 15 GI ve AZ 41 20 20 EN 5 OL 14 09 09 # NA E 6 DA 10 07 A 0 34 MG 6 TA BL ET 00 02 10 04 18 21 NU 32 FI Ac 05 -0 -0 4. FA 08 LI ti 37 8- 8- 00 CT 2 PO ve 59 20 20 0 OR 62 08 09 CH 0 IN C AL EX AN DR A H LE 00 05 10 03 30 30 WA 28 RO Ac VO 52 -1 -0 .0 LG 55 SE ti TH 71 3- 8- 00 RE 67 ve YR 34 20 20 EN 9 [place] 51 09 09 # SA IN 0 N E 07 R 10 34 0 6 MC G TA BL ET 00 08 09 01 28 28 WA 28 No Ac 43 -1 -2 .0 LG 77 t ti 00 5- 4- 00 RE 58 Av ve 53 20 20 EN 8 ai 01 09 09 # la 4 bl 07 e 34 6 LE 00 05 09 02 30 30 WA 28 RO Ac VO 52 -1 -1 .0 LG 55 SE ti TH 71 3- 0- 00 RE 67 ve YR 34 20 20 EN 9 [place] 51 09 09 # SA IN 0 N E 07 R 10 34 0 6 MC G TA BL ET 00 08 08 00 28 28 WA 28 No Ac 43 -1 -2 .0 LG 77 t ti 00 5- 7- 00 RE 58 Av ve 53 20 20 EN 8 ai 01 09 09 # la 4 bl 07 e 34 6 AZ 00 08 08 00 60 30 WA 28 YA Ac ED 59 -1 -2 .0 LG 77 ZI ti NI 15 4- 7- 00 RE 12 GI ve SO 44 20 20 EN 1 NE 20 09 09 # NA 5 DA 10 07 A 34 MG 6 TA BL ET LE 00 03 08 03 60 30 WA 28 GI Ac VE 37 -2 -2 .0 LG 46 LB ti TI 85 3- 7- 00 RE 19 ER ve RA 61 20 20 EN 2 T CE 77 09 09 # DO TA 8 NA M 07 LD 75 34 L 0 6 MG TA BL ET LE 00 03 08 02 60 30 WA 28 AR Ac VE 37 -2 -1 .0 LG 46 TH ti TI 85 3- 3- 00 RE 19 UR ve RA 61 20 20 EN 2 CE 77 09 09 # TO TA 8 DD M 07 75 34 0 6 MG TA BL ET 00 02 08 03 18 21 NU 32 FI Ac 05 -0 -1 4. FA 08 LI ti 37 8- 3- 00 CT 2 PO ve 59 20 20 0 OR 62 08 09 CH 0 IN C AL EX AN DR A H LE 00 05 08 01 30 30 WA 28 RO Ac VO 52 -1 -1 .0 LG 55 SE ti TH 71 3- 3- 00 RE 67 ve YR 34 20 20 EN 9 [place] 51 09 09 # SA IN 0 N E 07 R 10 34 0 6 MC G TA BL ET AZ 00 10 07 01 60 30 WA 28 YA Ac ED 59 -0 -3 .0 LG 43 ZI ti NI 15 1- 0- 00 RE 36 GI ve SO 44 20 20 EN 9 NE 20 08 09 # NA 5 DA 10 07 A 34 MG 6 TA BL ET RA 00 05 07 01 30 30 WA 28 YA Ac PA 00 -2 -1 .0 LG 38 ZI ti MU 81 1- 6- 00 RE 81 GI ve NE 04 20 20 EN 3 2 20 09 09 # NA 5 DA MG 07 A 34 TA 6 BL ET 00 02 07 02 18 21 NU 32 FI Ac 05 -0 -1 4. FA 08 LI ti 37 8- 6- 00 CT 2 PO ve 59 20 20 0 OR 62 08 09 CH 0 IN C AL EX AN DR A H LE 00 03 07 01 60 30 WA 28 AR Ac VE 37 -2 -1 .0 LG 46 TH ti TI 85 3- 6- 00 RE 19 UR ve RA 61 20 20 EN 2 CE 77 09 09 # TO TA 8 DD M 07 75 34 0 6 MG TA BL ET YA 50 07 07 00 28 28 WA 28 AP Ac Z 41 -1 -1 .0 LG 61 PI ti 28 90 0- 6- 00 RE 43 AH ve 40 20 20 EN 9 TA 50 09 09 # LE BL 3 SL ET 07 IE 34 A 6 LE 00 05 07 00 30 30 WA 28 RO Ac VO 52 -1 -1 .0 LG 55 SE ti TH 71 3- 6- 00 RE 67 ve YR 34 20 20 EN 9 [place] 51 09 09 # SA IN 0 N E 07 R 10 34 0 6 MC G TA BL ET LE 00 03 06 00 60 30 WA 28 AR Ac VE 37 -2 -1 .0 LG 46 TH ti TI 85 3- 8- 00 RE 19 UR ve RA 61 20 20 EN 2 CE 77 09 09 # TO TA 8 DD M 07 75 34 0 6 MG TA BL ET 00 04 06 01 90 30 CV 48 YA Ac 04 -0 -1 .0 S 99 ZI ti 50 8- 8- 00 PH 71 GI ve 34 20 20 AR 66 09 09 MA NA 0 CY DA A #5 43 7 AZ 00 10 06 00 60 30 WA 28 YA Ac ED 59 -0 -1 .0 LG 43 ZI ti NI 15 1- 8- 00 RE 36 GI ve SO 44 20 20 EN 9 NE 20 08 09 # NA 5 DA 10 07 A 34 MG 6 TA BL ET RA 00 05 06 00 30 30 WA 28 YA Ac PA 00 -2 -0 .0 LG 38 ZI ti MU 81 1- 4- 00 RE 81 GI ve NE 04 20 20 EN 3 2 20 09 09 # NA 5 DA MG 07 A 34 TA 6 BL ET 00 02 06 01 18 21 NU 32 FI Ac 05 -0 -0 4. FA 08 LI ti 37 8- 4- 00 CT 2 PO ve 59 20 20 0 OR 62 08 09 CH 0 IN C AL EX AN DR A H LE 00 05 06 00 30 30 CV 49 RO Ac VO 37 -1 -0 .0 S 37 SE ti TH 81 3- 4- 00 PH 13 ve YR 80 20 20 AR [place] 90 09 09 MA SA IN 1 CY N E R 10 #5 0 43 MC 7 G TA BL ET LE 00 03 05 01 60 30 CV 48 GI Ac VE 37 -2 -2 .0 S 82 LB ti TI 85 3- 1- 00 PH 99 ER ve RA 61 20 20 AR T CE 77 09 09 MA DO TA 8 CY NA M LD 75 #5 L 0 43 MG 7 TA BL ET AZ 00 10 05 01 60 30 CV 48 YA Ac ED 59 -0 -0 .0 S 24 ZI ti NI 15 1- 7- 00 PH 68 GI ve SO 44 20 20 AR NE 20 08 09 MA NA 1 CY DA 10 A #5 MG 43 7 TA BL ET 00 04 05 00 84 84 CV 49 No Ac 43 -2 -0 .0 S 17 t ti 00 4 7- 00 PH 87 Av ve 53 20 20 AR ai 01 09 09 MA la 4 CY bl e #5 43 7 00 04 04 00 90 30 CV 48 YA Ac 04 -0 -2 .0 S 99 ZI ti 50 8- 3- 00 PH 71 GI ve 34 20 20 AR 66 09 09 MA NA 0 CY DA A #5 43 7 CA 00 04 04 00 48 30 CV 48 YA Ac LC 09 -0 -2 0. S 99 ZI ti IT 30 8- 3- 00 PH 72 GI ve RI 65 20 20 0 AR OL 80 09 09 MA NA 1 CY DA 0. A 5 #5 MC 43 G 7 CA PS UL E 00 02 04 00 18 28 NU 32 FI Ac 05 -0 -0 4. FA 08 LI ti 37 8- 9- 00 CT 2 PO ve 59 20 20 0 OR 62 08 09 CH 0 IN C AL EX AN DR A H 00 02 04 04 18 28 NU 20 FI Ac 05 -0 -0 4. FA 86 LI ti 37 8- 9- 00 CT 1 PO ve 59 20 20 0 OR 62 08 09 CH 0 IN C AL EX AN DR A H LE 00 03 04 00 60 30 CV 48 GI Ac VE 37 -2 -0 .0 S 82 LB ti TI 85 3- 9- 00 PH 99 ER ve RA 61 20 20 AR T CE 77 09 09 MA DO TA 8 CY NA M LD 75 #5 L 0 43 MG 7 TA BL ET FL 68 03 04 00 15 14 CV 48 YA Ac UC 46 -2 -0 .0 S 83 ZI ti ON 20 4- 9- 00 PH 51 GI ve AZ 10 20 20 AR OL 43 09 09 MA NA E 0 CY DA 20 A 0 #5 MG 43 7 TA BL ET 00 09 04 02 28 28 CV 48 No Ac 43 -0 -0 .0 S 24 t ti 00 9- 9- 00 PH 67 Av ve 53 20 20 AR ai 01 08 09 MA la 4 CY bl e #5 43 7 LE 00 02 03 01 90 30 CV 48 No Ac VE 37 -0 -2 .0 S 29 t ti TI 85 4- 6- 00 PH 87 Av ve RA 61 20 20 AR ai CE 57 09 09 MA la TA 8 CY bl M e 50 #5 0 43 MG 7 TA BL ET 00 09 03 01 28 28 CV 48 No Ac 43 -0 -1 .0 S 24 t ti 00 9 2 PH 67 Av ve 53 20 20 AR ai 01 08 09 MA la 4 CY bl e #5 43 7 LE 00 03 02 02 30 30 CV 45 No Ac VO 37 -1 -2 .0 S 43 t ti TH 81 7- 6 00 PH 83 Av ve YR 80 20 20 AR ai OX 90 08 09 MA la IN 1 CY bl E e 10 #5 0 43 MC 7 G TA BL ET 00 02 02 00 18 28 NU 20 FI Ac 05 -0 -2 4. FA 86 LI ti 37 8- 6- 00 CT 1 PO ve 59 20 20 0 OR 62 08 09 CH 0 IN C AL EX AN DR A H 00 02 02 02 18 28 NU 20 FI Ac 05 -0 -2 4. FA 86 LI ti 37 8- 6- 00 CT 1 PO ve 59 20 20 0 OR 62 08 09 CH 0 IN C AL EX AN DR A H 02 02 01 18 28 NU 30 FI Ac 05 -0 -2 4. FA 32 LI ti 37 8- 6- 00 CT 2 PO ve 59 20 20 0 OR 62 08 09 CH 0 IN C AL EX AN DR A H 02 02 01 18 28 NU 20 FI Ac 05 -0 -2 4. FA 86 LI ti 37 8- 6- 00 CT 1 PO ve 59 20 20 0 OR 62 08 09 CH 0 IN C AL EX AN DR A H 02 02 03 18 28 NU 20 FI Ac 05 -0 -2 4. FA 86 LI ti 37 8- 6- 00 CT 1 PO ve 59 20 20 0 OR 62 08 09 CH 0 IN C AL EX AN DR A H 00 02 02 00 18 28 NU 30 FI Ac 05 -0 -2 4. FA 32 LI ti 37 8- 6- 00 CT 2 PO ve 59 20 20 0 OR 62 08 09 CH 0 IN C AL EX AN DR A H AZ 00 10 02 00 60 30 CV 48 YA Ac ED 59 -0 -1 .0 S 24 ZI ti NI 15 1- 2- 00 PH 68 GI ve SO 44 20 20 AR NE 20 08 09 MA NA 1 CY DA 10 A #5 MG 43 7 TA BL ET LE 00 02 02 00 90 30 CV 48 No Ac VE 37 -0 -1 .0 S 29 t ti TI 85 4- 2- 00 PH 87 Av ve RA 61 20 20 AR ai CE 57 09 09 MA la TA 8 CY bl M e 50 #5 0 43 MG 7 TA BL ET 00 09 02 00 28 28 CV 48 No Ac 43 -0 -1 .0 S 24 t ti 00 9- 2- 00 PH 67 Av ve 53 20 20 AR ai 01 08 09 MA la 4 CY bl e #5 43 7 LE 00 03 01 01 30 30 CV 45 No Ac VO 37 -1 -3 .0 S 43 t ti TH 81 7- 0- 00 PH 83 Av ve YR 80 20 20 AR ai OX 90 08 09 MA la IN 1 CY bl E e 10 #5 0 43 MC 7 G TA BL ET LE 00 12 01 01 90 30 CV 47 No Ac VE 37 -0 -1 .0 S 67 t ti TI 85 1- 5- 00 PH 20 Av ve RA 61 20 20 AR ai CE 57 08 09 MA la TA 8 CY bl M e 50 #5 0 43 MG 7 TA BL ET LE 00 12 12 00 90 30 CV 47 No Ac VE 37 -0 -1 .0 S 67 t ti TI 85 1- 8- 00 PH 20 Av ve RA 61 20 20 AR ai CE 57 08 08 MA la TA 8 CY bl M e 50 #5 0 43 MG 7 TA BL ET VA 00 10 11 00 10 5 CV 47 No Ac LT 17 -2 -0 .0 S 30 t ti RE 30 4- 7- 00 PH 52 Av ve X 93 20 20 AR ai 50 30 08 08 MA la 0 8 CY bl MG e #[address] 7 ET LE 00 03 11 00 30 30 CV 45 No Ac VO 37 -1 -0 .0 S 43 t ti TH 81 7- 7- 00 PH 83 Av ve YR 80 20 20 AR ai OX 90 08 08 MA la IN 1 CY bl E e 10 #5 0 43 MC 7 G TA BL ET FL 68 09 09 00 15 15 CV 46 KA Ac UC 46 -1 -2 .0 S 91 LF ti ON 20 PH 16 ve AZ 10 20 20 AR OL 23 08 08 MA PR E 0 CY NA 10 C 0 #5 MG 43 7 TA BL ET Procedures Procedure DOS Code Location Performer Comment DRUG TEST [id number] [facility] ST DEFINITV [address] ID METH P HEALTHCAR HEALTHCAR DAY 1- E EDGE E EDGE DRUG CL THERAPEUT 61854 [place] 1/> 7 [facility] ARE[facility] TIC EACH 15 CENTER MIN EXERCISES APPLICATI 13084 [facility] MODALITY TIC TIC 1/> AREAS CENTER CENTER HOT/COLD PACKS [facility] 82645 [facility] TIC 7 [facility] MANIPULAT TIC [facility] SPINAL 3-[address] [facility] [address] [facility] PRSMV 7 [facility] COLES DIR OPTICAL PHYSICIAN OBS PER S DAY DRUG TEST [address] [facility] [address] PRSMV 7 [facility] ED[facility] E EDGE ANALYZERS APPL 63843 [facility] [place] MODALITY 7 [facility] 1/> AREAS TIC TRACTION CENTER MECHANICA L APPL 07137 [facility] MODALITY 7 [facility] 1/> AREAS TIC ELEC CENTER STIMJ UNATTENDE D [facility] 27251 B[facility] TIC 7 [facility] MANIPLTV TIC TX CENTER EXTRASPIN AL 1/> REGION CHIROPRAC 84966 [facility] LUK[facility] TIC 7 [facility] MANIPLTV TIC TX CENTER EXTRASPIN AL 1/> [facility]ION CH[facility]OP[facility]AC 75307 [facility] TIC 7 [facility] MANIPULAT TIC [facility] SPINAL 3-4 [facility] THERAPEUT 55716 [facility] P[facility] 1/> 7 [facility] AREAS TIC TIC EACH 15 CENTER CENTER MIN EXERCISES THERAPEUT 44349 [facility] PX 1/> 7 [facility] AREAS TIC EACH 15 CENTER MIN EXERCISES [facility] 57265 [facility] TIC 7 [facility] MANIPULAT TIC [facility] SPINAL 3-4 [facility] APPLICATI 22998 [facility] ON 7 [facility] MODALITY TIC TIC 1/> AREAS CENTER CENTER HOT/COLD PACKS [facility] 73898 [facility] TIC 7 [facility] MANIPLTV TIC TX CENTER EXTRASPIN AL 1/> REGION APPL 66559 [facility]AL[facility] 1/> AREAS TIC ELEC CENTER STIMJ UNATTENDE D APPL 29039 [facility] MODALITY 7 CHIROPRAC 1/> AREAS TIC TRACTION CENTER MECHANICA L APPL 68201 [facility] FEL[facility] MODALITY 7 CHIROPRAC 1/> AREAS TIC TRACTION CENTER MECHANICA L CH[facility]OPRAC 51639 [facility] TIC 7 [facility] MANIPLTV TIC TX CENTER EXTRASPIN AL 1/> REGION APPLICATI 87566 [facility] ON 7 [facility] MODALITY TIC TIC 1/> AREAS CENTER CENTER HOT/COLD PACKS MANUAL 58949 [facility] THERAPY 7 [facility] TQS 1/> TIC [facility] CENTER EACH 15 MINUTES [facility] 63831 [facility] TIC 7 [facility] MANIPULAT TIC [facility] SPINAL 3-4 [facility] MANUAL 42273 [facility] THERAPY 7 [facility] TQS 1/> TIC [facility] CENTER EACH 15 MINUTES [facility]AC 18609 [facility] TIC 7 [facility] MANIPULAT TIC [facility] SPINAL 3-4 [facility] APPLICATI 86752 [facility] ON 7 [facility] MODALITY TIC 1/> AREAS CENTER HOT/COLD PACKS [facility] 48091 [facility] TIC 7 [facility] MANIPLTV TIC TX CENTER EXTRASPIN AL 1/> REGION APPL 02194 [facility] MODALITY 7 [facility]AC CHIROPRAC 1/> AREAS TIC TIC TRACTION CENTER CENTER MECHANICA L APPL 16018 [facility] MODALITY 7 CHIROPRAC 1/> AREAS TIC TRACTION CENTER MECHANICA L APPL 36903 [facility] MODALITY 7 CHIROPRAC 1/> AREAS TIC ELEC CENTER STIMJ UNATTENDE D CHIROPRAC 73526 [facility] TIC 7 [facility] MANIPLTV TIC TX CENTER EXTRASPIN AL 1/> REGION APPLICATI 89986 [facility] 7 [facility] CHIROPRAC MODALITY TIC TIC 1/> AREAS CENTER CENTER [place] [address] [facility] 1/> AREAS 7 [facility] EACH 15 TIC MINUTES CENTER MASSAGE MANUAL 75335 [facility] THERAPY 7 [facility] TQS 1/> TIC [facility] CENTER EACH 15 MINUTES CH[facility]OPRAC 94521 [facility] TIC 7 [facility] MANIPULAT TIC [facility] SPINAL 3-4 [facility] MANUAL 00897 [facility] THERAPY 7 CHIR[facility]RAC TQS 1/> TIC [facility] CENTER EACH 15 MINUTES APPLICATI 94910 [facility] [place] [place] ON 7 CHIROPRAC CHIROPRAC MODALITY TIC TIC 1/> AREAS CENTER CENTER HOT/COLD PACKS CHIROPRAC 61153 [facility] TIC 7 CHIROPR[facility] MANIPLTV TIC TX CENTER EXTRASPIN AL 1/> REGION APPL 90145 [facility] MODALITY 7 CHIROPRAC 1/> AREAS TIC ELEC CENTER STIMJ UNATTENDE D APPL 61336 [facility] MODALITY 7 CHIROPRAC 1/> AREAS TIC TRACTION CENTER MECHANICA L CHIROPRAC 81147 [facility] TIC 7 [facility]IROPRAC MANIPULAT TIC [facility] SPINAL 3-4 [facility] APPL 84638 [facility] MODALITY 7 CHIROPRAC CHIROPRAC 1/> AREAS TIC TIC TRACTION CENTER CENTER MECHANICA L APPL 23474 [facility] MODALITY 7 CHIROPRAC 1/> AREAS TIC ELEC CENTER STIMJ UNATTENDE D CHIROPRAC 04633 [facility] TIC 7 CHIROPRAC MANIPLTV TIC TX CENTER EXTRASPIN AL 1/> REGION APPLICATI 89058 [facility] FEL[facility] ON 7 CHIROPRAC MODALITY TIC 1/> AREAS CENTER [place] [address] [facility] 1/> AREAS 7 CHIROPRAC EACH 15 TIC MINUTES CENTER MASSAGE CH[facility]OP[facility]AC 09911 [facility] TIC 7 [facility]IROPR[facility] MANIPULAT TIC [facility] SPINAL 3-4 [facility]IONS APPLICATI 43662 [facility] SHETTY ON 7 CHIROPRAC MODALITY TIC 1/> AREAS [place] [address] [facility] 1/> AREAS 7 CHIROPRAC EACH 15 TIC MINUTES CENTER MASSAGE CHIROPRAC 40519 [facility] TIC 7 CHIROPRAC MANIPLTV TIC TX CENTER EXTRASPIN AL 1/> REGION APPL 70995 [facility] MODALITY 7 CHIROPRAC 1/> AREAS TIC ELEC CENTER STIMJ UNATTENDE D APPL 66905 [facility] MODALITY 7 CHIROPRAC 1/> AREAS TIC TRACTION CENTER MECHANICA L CHIROPRAC 13178 [facility] TIC 7 CHIROPRAC MANIPULAT TIC [facility] CENTER SPINAL 3-4 REGIONS CHIROPRAC 07528 [facility] TIC 7 [facility] MANIPULAT TIC [facility] [place] [facility] SPINAL 3-4 [facility]IONS APPL 07780 [facility] MODALITY 7 CHIROPRAC 1/> AREAS TIC ELEC CENTER STIMJ UNATTENDE D APPL 17806 [facility] JODIE MODALITY 7 CHIROPRAC 1/> AREAS TIC TRACTION CENTER MECHANICA L CHIROPRAC 26307 [facility] T[facility] 7 CHIROPRAC MANIPLTV TIC TX CENTER EXTRASPIN AL 1/> [place] [address] [facility] 1/> AREAS 7 CHIROPRAC EACH 15 TIC MINUTES CENTER MASSAGE APPLICATI 02813 [facility] FELICIANO ON 7 CHIROPRAC MODALITY TIC 1/> AREAS CENTER HOT/COLD PACKS THERAPEUT 99824 LANNY FELICIANO IC PX 1/> 7 CHIROPRAC AREAS TIC EACH 15 CENTER MIN EXERCISES APPLICATI 86922 [facility] LUKING ON 7 CHIROPRAC MODALITY TIC 1/> AREAS CENTER [place] [address] LAN[facility] LUKING 1/> AREAS 7 CHIROPRAC EACH 15 TIC MINUTES CENTER MASSAGE CHIROPRAC 94581 [facility] LUKING TIC 7 CHIROPRAC MANIPLTV TIC TX CENTER EXTRASPIN AL 1/> REGION APPL 82339 [facility] LUKING MODALITY 7 CHIROPRAC 1/> AREAS TIC TRACTION CENTER MECHANICA L APPL 77070 [facility] LUKING MODALITY 7 CHIROPRAC 1/> AREAS TIC ELEC CENTER STIMJ UNATTENDE D SELF-CARE 83812 [facility] AQUINOKING /HOME 7 CHIROPRAC MGMT TIC TRAINING CENTER EACH 15 MINUTES CHIROPRAC 45784 [facility] PHILLIPS TIC 7 CHIROPRAC MANIPULAT TIC [facility] SPINAL 3-4 REGIONS CHIROPRAC 21076 [facility] JODIE TIC 7 CHIROPRAC MANIPULAT TIC B[facility] SPINAL 3-4 REGIONS SELF-CARE 84843 [facility] JODIE /HOME 7 CHIROPRAC MGMT TIC TRAINING CENTER EACH 15 MINUTES APPL 62918 [facility] PARKER MODALITY 7 CHIROPRAC 1/> AREAS TIC ELEC CENTER STIMJ UNATTENDE D CHIROPRAC 03124 [facility] PARKER TIC 7 CHIROPRAC MANIPLTV TIC TX CENTER EXTRASPIN AL 1/> [place] [address] LANNY PARKER 1/> AREAS 7 CHIROPRAC EACH 15 TIC MINUTES CENTER MASSAGE APPLICATI 87812 LANNY FELICIANO ON 7 CHIROPRAC MODALITY TIC 1/> AREAS CENTER HOT/COLD PACKS NONEMERGE A0100 LKLP CAC BENNETTS NCY 6 INC TRANSPORT TRANSPORT REGION 9 ATION CO ATION; L TAXI CHIROPRAC 13185 [facility] T[facility] 6 CHIROPRAC MANIPLTV TIC TX CENTER EXTRASPIN AL 1/> REGION CHIROPRAC 91808 [facility] BA[facility]UELOS TIC 6 CHIROPRAC MANIPULAT TIC [facility] [place] CENTER SPINAL 3-4 REGIONS THERAPEUT 62464 [facility] BA[facility]UELOS IC PX 1/> 6 CHIROPRAC AREAS TIC EACH 15 CENTER MIN EXERCISES THERAPEUT 22512 [facility]ELOS IC PX 1/> 6 CHIROPRAC AREAS TIC EACH 15 CENTER MIN EXERCISES CHIROPRAC 45261 [facility] TIC 6 CHIROPRAC MANIPULAT TIC B[facility] CENTER SPINAL 3-4 REGIONS APPL 73306 [facility] CA DAY 6 CHIROPRAC CHIROPRAC 1/> AREAS TIC TIC ELEC CENTER CENTER STIMJ UNATTENDE D CHIROPRAC 70339 [facility]UELOS TIC 6 CHIROPRAC MANIPLTV TIC TX CENTER EXTRASPIN AL 1/> REGION BLOOD 05837 THE THE COUNT [address] [place] [address] AUTOMATED HEMOGLOBI [address] THE THE N [address] [place] [address] [place] [address] THE THE AMYLASE [address] [place] [address] [place] [address] THE THE FREE [address] [place] [address] [place] [address] THE THE THYROID [address] [place] [address] NG HORMONE TSH COMPREHEN [id number] THE THE SIVE [address] [place] [address] [facility] [place] [address] THE THE LIPASE [address] [place] [address] [place] [address] THE THE PARATHORM [address] [place] [address] CALCIUM 609[address] THE THE IONIZED [address] [place] [address] COLLECTIO 98722 THE THE N VENOUS [address] [place] [address] VENIPUNCT URE THERAPEUT 11056 [facility] BA[facility]ELOS IC PX 1/> 6 CHIROPRAC AREAS TIC EACH 15 CENTER MIN EXERCISES CHIROPRAC 09079 [facility] [facility] TIC 6 CH[facility]OP[facility] MANIPULAT TIC [facility] SPINAL 3-4 [facility]IONS APPL 56309 [facility] CHIROPRAC 1/> AREAS TIC TIC TRACTION CENTER CENTER MECHANICA L CHIROPRAC 76779 [facility] T[facility] 6 CHIROPRAC MANIPLTV TIC TX CENTER EXTRASPIN AL 1/> REGION CHIROPRAC 57020 [facility] EDDA TIC 6 CH[facility]OPRAC MANIPLTV TIC TX CENTER EXTRASPIN AL 1/> [facility] APPL 63400 [facility] CHIROPRAC 1/> AREAS TIC TIC TRACTION CENTER CENTER MECHANICA L CHIROPRAC 25260 [facility] T[facility] 6 [facility]OPR[facility] MANIPULAT TIC [facility] SPINAL 3-4 REGIONS THERAPEUT 49300 [facility] [place] EDDA IC PX 1/> 6 CHIROPRAC AREAS TIC EACH 15 CENTER MIN EXERCISES THERAPEUT 62333 [facility] [place] EDDA IC PX 1/> 6 [facility] AREAS TIC EACH 15 CENTER MIN EXERCISES APPL 18041 [facility] CHIROPRAC 1/> AREAS TIC TIC TRACTION CENTER CENTER MECHANICA L CHIROPRAC 21008 [facility] TIC 6 CHIROPRAC MANIPULAT TIC [facility] SPINAL 3-4 REGIONS APPL 96450 [place] EDDA MODALITY 6 CHIROPRAC 1/> AREAS TIC ELEC CENTER STIMJ UNATTENDE D CHIROPRAC 46973 [facility] EDDA TIC 6 CHIROPRAC MANIPLTV TIC TX CENTER EXTRASPIN AL 1/> REGION CHIROPRAC 02337 [facility] [place] EDDA TIC 6 CHIROPRAC MANIPLTV TIC TX CENTER EXTRASPIN AL 1/> REGION SELF-CARE 44270 [place] [place] EDDA /HOME 6 CHIROPRAC MGMT TIC TRAINING CENTER EACH 15 MINUTES CHIROPRAC 36869 [place] EDDA TIC 6 CHIROPR[facility] MANIPULAT TIC [facility] SPINAL 3-4 REGIONS THERAPEUT 58391 [facility] IC PX 1/> 6 CHIROPRAC CHIROPRAC AREAS TIC TIC EACH 15 CENTER CENTER MIN EXERCISES RADIOLOGI 28593 [facility] R[facility] ALL C 6 MEDICAL EXAMINATI IMAGING ON FOOT 2 ASS VIEWS SURGICAL L3260 ADVANCED ADVANCED BOOT/SHOE 6 TECHNOLOG TECHNOLOG EACH IES INC IES INC APPL 71191 [facility] KURTISKSRAY BERNSTEIN 6 CHIROPRAC CHIROPRAC 1/> AREAS TIC TIC ELEC CENTER CENTER STIMJ UNATTENDE D CHIROPRAC 09293 [facility] TIC 6 CHIROPRAC MANIPULAT TIC [facility] SPINAL 3-4 REGIONS CHIROPRAC 27951 [facility] T[facility] 6 CHIROPRAC MANIPLTV TIC TX CENTER EXTRASPIN AL 1/> REGION THERAPEUT 48078 [facility] EDDA IC PX 1/> 6 CHIROPRAC AREAS TIC EACH 15 CENTER MIN EXERCISES THERAPEUT 82262 [facility] KURTISKSRAY IC PX 1/> 6 CHIROPRAC CHIROPRAC AREAS TIC TIC EACH 15 CENTER CENTER MIN EXERCISES CHIROPRAC 92631 [facility] EDDA TIC 6 CHIROPRAC GAR MANIPLTV TIC TX CENTER EXTRASPIN AL 1/> REGION CHIROPRAC 54956 [facility] EDDA TIC 6 CHIROPRAC GAR MANIPULAT TIC [facility] SPINAL 3-4 REGIONS CHIROPRAC 70259 [facility] [place] EDDA TIC 6 CHIROPRAC MANIPULAT TIC [facility] SPINAL 3-4 REGIONS CHIROPRAC 44387 [facility] EDDA TIC 6 CHIROPRAC MANIPLTV TIC TX CENTER EXTRASPIN AL 1/> REGION THERAPEUT 83790 [facility] EDDA IC PX 1/> 6 CHIROPRAC AREAS TIC EACH 15 CENTER MIN EXERCISES THERAPEUT 85231 [facility] RILEY IC PX 1/> 6 CH[facility]OPRAC AREAS TIC EACH 15 CENTER MIN EXERCISES CHIROPRAC 67277 [facility] LANNY TIC 6 CHIROPRAC CHIROPRAC MANIPLTV TIC TIC TX CENTER CENTER EXTRASPIN AL 1/> REGION CHIROPRAC 53999 [facility] EDDA TIC 6 CHIROPRAC MANIPULAT TIC [facility] SPINAL 3-4 REGIONS APPL 08829 [facility] EDDA MODALITY 6 CHIROPRAC 1/> AREAS TIC TRACTION CENTER MECHANICA L CHIROPRAC 95023 [facility] CHIROPRAC MANIPLTV TIC TX CENTER EXTRASPIN AL 1/> REGION THERAPEUT 96030 [facility] IC PX 1/> 6 CHIROPRAC CHIROPRAC AREAS TIC TIC EACH 15 CENTER CENTER MIN EXERCISES CHIROPRAC 11516 [facility] CHIROPRAC MANIPULAT TIC [facility] SPINAL 3-4 REGIONS BASIC 76165 [facility] METABOLIC 6 Y Y PANEL HOSPITAL HOSPITAL CALCIUM TOTAL COLLECTIO 81087 [facility] N VENOUS 6 Y Y BLOOD [facility] VENIPUNCT URE PROTHROMB 22621 [facility] IN TIME 6 Y Y [facility] [place] [facility] SSD THROMBOPL 70000 [facility] ASTIN 6 Y Y TIME HOSPITAL HOSPITAL PARTIAL PLASMA/WH OLE BLOOD BLOOD 87873 [facility] COUNT 6 Y Y COMPLETE HOSPITAL HOSPITAL AUTOMATED CHIROPRAC 10492 [facility] 6 CHIROPRAC GAR MANIPLTV TIC TX CENTER EXTRASPIN AL 1/> REGION CHIROPRAC 63126 [facility]IC 6 CHIROPRAC GAR MANIPULAT TIC [facility] SPINAL 3-4 REGIONS MANUAL 77873 [facility] CA THERAPY 6 CHIROPRAC CHIROPRAC TQS 1/> TIC TIC REGIONS CENTER CENTER EACH 15 MINUTES MANUAL 85106 [facility] EDDA THERAPY 6 CHIROPRAC TQS 1/> TIC REGIONS CENTER EACH 15 MINUTES THERAPEUT 21456 [facility] HULLKSRAY IC PX 1/> 6 CHIROPRAC CHIROPRAC AREAS TIC TIC EACH 15 CENTER CENTER MIN EXERCISES CHIROPRAC 44130 [facility] EDDA TIC 6 CHIROPRAC MANIPULAT TIC [facility] SPINAL 1-2 REGIONS CHIROPRAC 30680 [facility] EDDA TIC 6 CHIROPRAC MANIPLTV TIC TX CENTER EXTRASPIN AL 1/> REGION CHIROPRAC 07732 [facility] 6 CHIROPRAC GAR MANIPLTV TIC TX CENTER EXTRASPIN AL 1/> REGION CHIROPRAC 54134 [facility] T[facility] 6 CHIROPRAC GAR MANIPULAT TIC [facility] SPINAL 3-4 REGIONS THERAPEUT 27847 [facility] CA IC PX 1/> 6 CHIROPRAC CHIROPRAC AREAS TIC TIC EACH 15 CENTER CENTER MIN EXERCISES THERAPEUT 85040 [facility] IC PX 1/> 6 CHIROPRAC AREAS TIC EACH 15 CENTER MIN EXERCISES APPL 35855 [facility] MOD[facility]ITY 6 CHIROPRAC CHIROPRAC 1/> AREAS TIC TIC TRACTION CENTER CENTER MECHANICA L CHIROPRAC 01312 [facility]IC 6 CHIROPRAC MANIPULAT TIC [facility] SPINAL 3-4 REGIONS CHIROPRAC 38674 [facility] TIC 6 CHIROPRAC MANIPLTV TIC TX CENTER EXTRASPIN AL 1/> REGION CHIROPRAC 68034 [facility] TIC 6 CHIROPRAC GAR MANIPLTV TIC TX CENTER EXTRASPIN AL 1/> REGION CHIROPRAC 57531 [facility] TIC 6 CHIROPRAC GAR MANIPULAT TIC [facility] SPINAL 3-4 REGIONS APPL 21727 [facility] MODALITY 6 CHIROPRAC CHIROPRAC 1/> AREAS TIC TIC TRACTION CENTER CENTER MECHANICA L THERAPEUT 17825 [facility] IC PX 1/> 6 CHIROPRAC GAR AREAS TIC EACH 15 CENTER MIN EXERCISES THERAPEUT 20309 [facility] IC PX 1/> 6 CHIROPRAC GAR AREAS TIC EACH 15 CENTER MIN EXERCISES APPL 83136 [facility] CH[facility] CHIROPRAC 1/> AREAS TIC TIC TRACTION CENTER CENTER MECHANICA L CHIROPRAC 90451 [facility] TIC 6 CHIROPRAC GAR MANIPULAT TIC [facility] SPINAL 3-4 REGIONS CHIROPRAC 03290 [facility] TIC 6 CHIROPRAC GAR MANIPLTV TIC TX CENTER EXTRASPIN AL 1/> REGION CHIROPRAC 42502 [facility] TIC 6 CHIROPRAC MANIPLTV TIC TX CENTER EXTRASPIN AL 1/> REGION CHIROPRAC 40797 [facility] BAÑUELOS TIC 6 CHIROPRAC MANIPULAT TIC [facility] SPINAL 3-4 REGIONS THERAPEUT 32624 [facility] CA IC PX 1/> 6 CHIROPRAC CHIROPRAC AREAS TIC TIC EACH 15 CENTER CENTER MIN EXERCISES MANUAL 59208 [facility] THERAPY 6 CHIROPRAC TQS 1/> TIC REGIONS CENTER EACH 15 MINUTES MANUAL 60651 [facility] THERAPY 6 CHIROPRAC TQS 1/> TIC REGIONS CENTER EACH 15 MINUTES THERAPEUT 33907 KURTISKSRAY CA IC PX 1/> 6 CHIROPRAC CHIROPRAC AREAS TIC TIC EACH 15 CENTER CENTER MIN EXERCISES CHIROPRAC 38641 [facility] BAÑUELOS TIC 6 CHIROPRAC MANIPULAT TIC [facility] SPINAL 3-4 REGIONS CHIROPRAC 74001 [facility] BAÑUELOS TIC 6 CHIROPRAC MANIPLTV TIC TX CENTER EXTRASPIN AL 1/> REGION CHIROPRAC 13649 [facility] BAÑUELOS TIC 6 CHIROPRAC MANIPLTV TIC TX CENTER EXTRASPIN AL 1/> REGION CHIROPRAC 54712 [facility] BAÑUELOS TIC 6 CHIROPRAC MANIPULAT TIC [facility] SPINAL 3-4 REGIONS THERAPEUT 39658 [facility] IC PX 1/> 6 CHIROPRAC CHIROPRAC AREAS TIC TIC EACH 15 CENTER CENTER MIN EXERCISES MANUAL 79681 [facility] THERAPY 6 CHIROPRAC TQS 1/> TIC REGIONS CENTER EACH 15 MINUTES MANUAL 64880 [facility] THERAPY 6 CHIROPRAC TQS 1/> TIC REGIONS CENTER EACH 15 MINUTES THERAPEUT 41055 [facility] IC PX 1/> 6 CHIROPRAC CHIROPRAC AREAS TIC TIC EACH 15 CENTER CENTER MIN EXERCISES CHIROPRAC 17230 [facility] BAÑUELOS TIC 6 CHIROPRAC MANIPULAT TIC [facility] SPINAL 3-4 REGIONS CHIROPRAC 85362 [facility] 6 CHIROPRAC MANIPLTV TIC TX CENTER EXTRASPIN AL 1/> REGION CHIROPRAC 07814 [facility] BAÑUELOS TIC 6 CHIROPRAC GAR MANIPLTV TIC TX CENTER EXTRASPIN AL 1/> REGION CHIROPRAC 98997 [facility] BAÑUELOS TIC 6 CHIROPRAC GAR MANIPULAT TIC [facility] SPINAL 3-4 REGIONS THERAPEUT 36744 [facility] IC PX 1/> 6 CHIROPRAC CHIROPRAC AREAS TIC TIC EACH 15 CENTER CENTER MIN EXERCISES MANUAL 71307 [facility] THERAPY 6 CHIROPRAC GAR TQS 1/> TIC REGIONS CENTER EACH 15 MINUTES MANUAL 83093 [facility] THERAPY 6 CHIROPRAC TQS 1/> TIC REGIONS CENTER EACH 15 MINUTES THERAPEUT 56800 [facility] IC PX 1/> 6 CHIROPRAC CHIROPRAC AREAS TIC TIC EACH 15 CENTER CENTER MIN EXERCISES CHIROPRAC 79569 [facility] BAÑUELOS TIC 6 CHIROPRAC MANIPLTV TIC TX CENTER EXTRASPIN AL 1/> REGION CHIROPRAC 72303 [facility] 6 CHIROPRAC MANIPULAT TIC [facility] SPINAL 1-2 REGIONS CHIROPRAC 75021 [facility] BAÑUELOS TIC 6 CHIROPRAC GAR MANIPLTV TIC TX CENTER EXTRASPIN AL 1/> REGION CHIROPRAC 40599 [facility] BAÑUELOS TIC 6 CHIROPRAC GAR MANIPULAT TIC [facility] SPINAL 3-4 REGIONS CHIROPRAC 55102 [facility] TIC 6 CHIROPRAC CHIROPRAC MANIPULAT TIC TIC [facility] CENTER SPINAL 3-4 REGIONS CHIROPRAC 36065 [facility] BAÑUELOS TIC 6 CHIROPRAC GAR MANIPLTV TIC TX CENTER EXTRASPIN AL 1/> REGION CHIROPRAC 28130 [facility] BAÑUELOS TIC 5 CHIROPRAC GAR MANIPULAT TIC [facility] SPINAL 1-2 REGIONS CHIROPRAC 29671 [facility] EDDA TIC 5 CHIROPRAC GAR MANIPULAT TIC [facility] SPINAL 1-2 REGIONS CHIROPRAC 54102 [facility] EDDA TIC 5 CHIROPRAC GAR MANIPLTV TIC TX CENTER EXTRASPIN AL 1/> REGION THERAPEUT 60756 [facility] IC PX 1/> 5 CHIROPRAC GAR AREAS TIC EACH 15 CENTER MIN EXERCISES THERAPEUT 25937 [facility] IC PX 1/> 5 CHIROPRAC GAR AREAS TIC EACH 15 CENTER MIN EXERCISES CHIROPRAC 81646 [facility] HULLKSRAY TIC 5 CHIROPRAC CHIROPRAC MANIPLTV TIC TIC TX CENTER CENTER EXTRASPIN AL 1/> REGION CHIROPRAC 37475 [facility] H[facility] TIC 5 CHIROPRAC CHIROPRAC MANIPULAT TIC TIC [facility] CENTER SPINAL 1-2 REGIONS CHIROPRAC 22028 [facility] TIC 5 CHIROPRAC GAR MANIPULAT TIC [facility] SPINAL 3-4 REGIONS CHIROPRAC 29747 [facility] TIC 5 CHIROPRAC GAR MANIPLTV TIC TX CENTER EXTRASPIN AL 1/> REGION RADEX 92784 RADIOLOGY BRANDSER FOOT 5 SHEA COMPLETE ASSOCIATE MINIMUM 3 S OF NOTH VIEWS THERAPEUT 19325 [facility] IC PX 1/> 5 CHIROPRAC GAR AREAS TIC EACH 15 CENTER MIN EXERCISES CHIROPRAC 97978 [facility] TIC 5 CHIROPRAC GAR MANIPLTV TIC TX CENTER EXTRASPIN AL 1/> REGION CH[facility]OPRAC 16332 [facility] CHIROPRAC MANIPULAT TIC TIC [facility] CENTER SPINAL 1-2 REGIONS CHIROPRAC 36446 [facility] T[facility] 5 CHIROPRAC GAR MANIPULAT TIC [facility] SPINAL 1-2 REGIONS CHIROPRAC 93694 [facility] TIC 5 CHIROPRAC GAR MANIPLTV TIC TX CENTER EXTRASPIN AL 1/> REGION THERAPEUT 54285 [facility] IC PX 1/> 5 CHIROPRAC GAR AREAS TIC EACH 15 CENTER MIN EXERCISES THERAPEUT 53427 [facility] IC PX 1/> 5 CHIROPRAC GAR AREAS TIC EACH 15 CENTER MIN EXERCISES CHIROPRAC 90784 [facility] TIC 5 CHIROPRAC GAR MANIPLTV TIC TX CENTER EXTRASPIN AL 1/> REGION CHIROPRAC 08078 [facility] TIC 5 CHIROPRAC CHIROPRAC MANIPULAT TIC TIC [facility] CENTER SPINAL 1-2 REGIONS CHIROPRAC 58731 [facility] KURTISKSRAY TIC 5 CHIROPRAC CHIROPRAC MANIPULAT TIC TIC [facility] CENTER SPINAL 1-2 REGIONS CHIROPRAC 84997 [facility] TIC 5 CHIROPRAC CHIROPRAC MANIPLTV TIC TIC TX CENTER CENTER EXTRASPIN AL 1/> REGION THERAPEUT 23161 [facility] IC PX 1/> 5 CHIROPRAC GAR AREAS TIC EACH 15 CENTER MIN EXERCISES [facility]OPRAC 23401 [facility]OPR[facility] CHIROPRAC MANIPULAT TIC TIC [facility] CENTER SPINAL 1-2 REGIONS CHIROPRAC 76052 [facility] TIC 5 CHIROPRAC CHIROPRAC MANIPLTV TIC TIC TX CENTER CENTER EXTRASPIN AL 1/> REGION CHIROPRAC 40070 [facility] TIC 5 CHIROPRAC GAR MANIPLTV TIC TX CENTER EXTRASPIN AL 1/> REGION CHIROPRAC 67379 [facility] TIC 5 CHIROPRAC GAR MANIPULAT TIC [facility] SPINAL 1-2 REGIONS CHIROPRAC 67361 [facility] TIC 5 CHIROPRAC GAR MANIPULAT TIC [facility] SPINAL 1-2 REGIONS CHIROPRAC 00079 [facility] TIC 5 CHIROPRAC GAR MANIPLTV TIC TX CENTER EXTRASPIN AL 1/> REGION CHIROPRAC 46227 [facility] TIC 5 CHIROPRAC GAR MANIPULAT TIC [facility] SPINAL 1-2 REGIONS CHIROPRAC 30985 [facility]IC 5 CHIROPRAC GAR MANIPLTV TIC TX CENTER EXTRASPIN AL 1/> REGION CHIROPRAC 91593 [facility] TIC 5 CHIROPRAC GAR MANIPLTV TIC TX CENTER EXTRASPIN AL 1/> REGION CHIROPRAC 78787 [facility] BAÑUELOS TIC 5 CHIROPRAC GAR MANIPULAT TIC [facility] SPINAL 1-2 REGIONS THERAPEUT 37578 [facility] BAÑUELOS IC PX 1/> 5 CHIROPRAC GAR AREAS TIC EACH 15 CENTER MIN EXERCISES THERAPEUT 28620 [facility] BAÑUELOS IC PX 1/> 5 CHIROPRAC GAR AREAS TIC EACH 15 CENTER MIN EXERCISES CHIROPRAC 15618 [facility] BAÑUELOS TIC 5 CHIROPRAC GAR MANIPLTV TIC TX CENTER EXTRASPIN AL 1/> REGION CHIROPRAC 58439 [facility] BAÑUELOS TIC 5 CHIROPRAC GAR MANIPULAT TIC [facility] SPINAL 1-2 REGIONS CHIROPRAC 43259 [facility] BAÑUELOS TIC 5 CHIROPRAC GAR MANIPLTV TIC TX CENTER EXTRASPIN AL 1/> REGION CHIROPRAC 54749 [facility] BAÑUELOS TIC 5 CHIROPRAC GAR MANIPULAT TIC [facility] SPINAL 1-2 REGIONS THERAPEUT 46962 [facility] BAÑUELOS IC PX 1/> 5 CHIROPRAC GAR AREAS TIC EACH 15 CENTER MIN EXERCISES THERAPEUT 69745 [facility] BAÑUELOS IC PX 1/> 5 CHIROPRAC GAR AREAS TIC EACH 15 CENTER MIN EXERCISES CHIROPRAC 53664 [facility] BAÑUELOS TIC 5 CHIROPRAC GAR MANIPULAT TIC [facility] SPINAL 1-2 REGIONS CHIROPRAC 70635 [facility] BAÑUELOS TIC 5 CHIROPRAC GAR MANIPLTV TIC TX CENTER EXTRASPIN AL 1/> REGION CHIROPRAC 11235 [facility] BAÑUELOS TIC 5 CHIROPRAC GAR MANIPLTV TIC TX CENTER EXTRASPIN AL 1/> REGION CHIROPRAC 70577 [facility] BAÑUELOS TIC 5 CHIROPRAC GAR MANIPULAT TIC [facility]ENTER SPINAL 1-2 REGIONS CHIROPRAC 50492 [facility] HULLMARIORAY TIC 5 CHIROPRAC CHIROPRAC MANIPULAT TIC TIC [facility] CENTER SPINAL 1-2 REGIONS CHIROPRAC 16443 [facility]IS[facility]YANA BAÑUELOS TIC 5 CHIROPRAC GAR MANIPLTV TIC TX CENTER EXTRASPIN AL 1/> REGION CHIROPRAC 07904 [facility] BAÑUELOS TIC 5 CHIROPRAC GAR MANIPULAT TIC [facility] SPINAL 3-4 REGIONS CHIROPRAC 80515 [facility] BAÑUELOS TIC 5 CHIROPRAC GAR MANIPULAT TIC [facility] SPINAL 1-2 REGIONS CHIROPRAC 05079 [facility] BAÑUELOS TIC 5 CHIROPRAC GAR MANIPULAT TIC [facility]ENTER SPINAL 1-2 REGIONS CRTCHS E0114 ADVANCED ADVANCED UNDARM 5 TECHNOLOG TECHNOLOG OTH THAN IES INC IES INC WOOD PAIR PAD TIP&HNDGR IP RADEX 11689 [facility] D[facility] KIMBERLEY FOOT 5 MEDICAL COMPLETE IMAGING MINIMUM 3 ASS VIEWS CHIROPRAC 10683 LAN[facility] BAÑUELOS TIC 5 CHIROPRAC GAR MANIPULAT TIC [facility] [place] SPINAL 1-[address] [place] [address] LUI FINLEY HEAD/BRAI 5 NAL N W/O RADIOLOGY CONTRAST INC. MATERIAL RADIOLOGI 96637 LUI JOSEPH C 5 NAL ADA EXAMINATI RADIOLOGY ON CHEST INC. SINGLE VIEW FRONTAL ANESTHESI 19795 [place] A 5 MEDICAL ZOH INTRACRAN SERVICES IAL VASCULAR PROCEDURE UNLISTED 62310 [place] PROCEDURE 5 MEDICAL JUS NERVOUS SERV SYSTEM FOUNDATIO N MICROSURG 41922 [place] TQS REQ 5 MEDICAL JUS USE SERV OPERATING FOUNDATIO N MICROSCOP E ARTL 47287 [place] CATHJ/CAN 5 MEDICAL ZOH NULJ SERVICES MNTR/GERMAN SFUSION SPX PRQ INITIAL 39019 [place] MANC[place] INPATIENT 5 MEDICAL L CONSULT SERV NEW/ESTAB FOUNDATIO PT 80 N MIN CHIROPRAC 56453 COLE COLE TIC 5 COL COL MANIPULAT BEN TX SPINAL 1-2 REGIONS APPL 29036 COLE COLE MODALITY 5 COL COL 1/> AREAS ELEC STIMJ UNATTENDE D APPL 20333 CO[place]LE MODALITY 5 COL COL 1/> AREAS TRACTION MECHANICA L ECG 41164 [place] [facility] [facility] ROUTINE 5 MEDICAL ECG SERV W/LEAST FOUNDATIO 12 LDS N I&R ONLY ANKLE L1930 PATIENT PATIENT FOOT 5 AIDS INC AIDS INC ORTHOTIC PLASTIC/O TH [facility] 02007 [facility] 5 MEDICAL SHEA DAY SERV MANAGEMEN FOUNDATIO T 30 N MIN/< CANE E0105 PATIENT PATIENT QUAD/3-AZ 5 AIDS INC AIDS INC JACIEL ALL MATL ADJUSTBL/ FIX W/TIPS SBSQ 62488 [place] [address] MEDICAL NAN CARE/DAY SERV 25 FOUNDATIO MINUTES N SBSQ [address]1581 [place] [address] MEDICAL SHEA CARE/DAY SERV 35 FOUNDATIO MINUTES N SBSQ 55200 [place] [address] MEDICAL SARAH CARE/DAY SERV 25 FOUNDATIO MINUTES N SBSQ 85728 [place] [address] MEDICAL SARAH CARE/DAY SERV 25 FOUNDATIO MINUTES N SBSQ 37001 [place] [address] MEDICAL SARAH CARE/DAY SERV 25 FOUNDATIO MINUTES N SBSQ [address]6417 [place] [address] MEDICAL SHEA CARE/DAY SERV 25 FOUNDATIO MINUTES N SBSQ 34141 [place] [address] MEDICAL SHEA CARE/DAY SERV 25 FOUNDATIO MINUTES N RADIOLOGI 37490 [place] [address] RADIOLOGY III ROMARIO EXAMINATI ON CHEST [facility] [address] [place] [address] MEDICAL JOHN DAY SERV MANAGEMEN FOUNDATIO T 30 N MIN/< INITIAL 80842 [place] [address] MEDICAL SHEA CARE/DAY SERV 70 FOUNDATIO MINUTES N SBSQ 12437 [place] [address] MEDICAL JOHN CARE/DAY SERV 25 FOUNDATIO MINUTES N SBSQ 94911 [facility] 5 MEDICAL CARE/DAY SERV 35 FOUNDATIO MINUTES N SLCTV 73785 [facility] 5 MEDICAL ABD VERTEBRAL SERV ART FOUNDATIO ANGIO N VERTEBRAL ARTERY SLCTV 04164 [facility] 5 MEDICAL ABD XTRNL SERV CAROTID FOUNDATIO ANGIO N XTRNL CAROTD CIRC SLCTV 79684 [place] [facility] CATH 5 MEDICAL ABD CAROTID/I SERV NNOM ART FOUNDATIO ANGIO N INTRCRANL ART SLCTV 64650 [place] [facility] CATH 5 MEDICAL ABD INTRNL SERV CAROTID [place]AT[place] [address] [place] ANGIOGRAP 5 MEDICAL FLA HY NECK SERV W/CONTRAS FOUNDATIO T/NONCONT N RAST HEMOGLOBI 94437 UNIVERSIT ERICKA N 5 Y OF EDER FRACTJ/QU [facility] [place] [address] [place] HEAD/BRAI 5 MEDICAL FLA N W/O SERV CONTRAST FOUNDATIO MATERIAL N MRI BRAIN 70670 [place] ESCOTT BRAIN 5 MEDICAL EDW STEM W/O SERV W/CONTRAS FOUNDATIO T N MATERIAL RADIOLOGI 34566 [place] C 5 MEDICAL EITAN EXAMINATI SERV ON CHEST [place] [address] [place] SETH KWA ANGIOGRAP 5 MEDICAL HY HEAD SERV W/CONTRAS FOUNDATIO T/NONCONT N RAST GROUND A0425 [facility] MILEAGE 5 Ada-ISHAN WHITMORE PER CO EMS CO EMS STATUTE MILE AMB A0427 [facility] SERVICE 5 Ada-ISHAN WHITMORE ALS CO EMS CO EMS EMERGENCY TRANSPORT LEVEL 1 ECG 65207 [place]AY[place] CHI ROUTINE 5 MEDICAL ECG SERV W/LEAST FOUNDATIO 12 LDS N I&R ONLY APPL 59281 [facility] MODALITY 5 COL COL 1/> AREAS ELEC STIMJ UNATTENDE D APPL 83947 [facility] MODALITY 5 COL COL 1/> AREAS TRACTION MECHANICA L CHIROPRAC 03644 [facility] TIC 5 COL COL MANIPULAT BEN TX SPINAL 3-4 REGIONS CHIROPRAC 23906 [facility] TIC 5 COL COL MANIPLTV TX EXTRASPIN AL 1/> REGION RADEX 62286 [facility] SPINE 5 COL COL LUMBOSACR AL 2/[address] [place] [address] [facility] [place] SCALF JOHN ABDOMEN & 4 RADIOLOGY PELVIS W/O CONTRAST MATERIAL BLOOD 20689 [facility] PERIPHERA L INTERP PHYS W/WRIT REPORT ECG 29687 [place] BAYLEE CHI ROUTINE 4 MEDICAL ECG SERV W/LEAST FOUNDATIO 12 LDS N I&R ONLY AMB A0427 [facility] SERVICE 4 CO CO ALS AMBULANCE AMBULANCE EMERGENCY TAXIN TAXIN TRANSPORT LEVEL 1 GROUND A0425 BOB BOB MILEAGE 4 CO CO PER AMBULANCE [place] [address] [place]AL[place] COLLIERUTCHER HEAD/BRAI 4 MEDICAL ROYER N W/O IMAGING CONTRAST ASS MATERIAL CHIROPRA 90584 ROSEMARIE HOUSTON TIC 4 DONNA DONNA MANIPULAT BEN [place] SPINAL 3-4 [place] [address] ROSEMARIE HOUSTON 1/> AREAS 4 DONNA DONNA EACH 15 MINUTES [facility] [address] [facility] 4 [facility] MEDICINE MANAGEMEN UFPA T 30 MIN/< INITIAL 60306 [facility] NAHUM INPATIENT 4 Medicine JR. KIMBERLEY CONSULT NEW/ESTAB PT 55 MIN INITIAL 72316 [facility] SHAINA INPATIENT 4 Medicine DAM SRI CONSULT NEW/ESTAB PT 80 MIN INITIAL [address]/[facility] [address] [place] [address] MADHU DIXON ABDOMEN & 4 Radiologi LUCIANO PELVIS stacey W/O Associate CONTRAST s MATERIAL RADIOLOGI 85165 MADHU DIXON C EXAM 4 Radiologi LUCIANO CHEST 2 stacey VIEWS Associate FRONTAL[place] [address] ROSEMARIE HOUSTON 1/> AREAS 4 DONNA DONNA EACH 15 MIN[facility]ES [facility] ROSEMARIE HOUSTON TIC 4 DONNA DONNA MANIPULAT BEN TX SPINAL 3-4 REGIONS CHIROPRAC 73815 ROSEMARIE HOUSTON TIC 4 DONNA DONNA MANIPULAT BEN TX SPINAL 3-4 REGIONS CHIROPRAC 72379 ROSEMARIE HOUSTON TIC 4 DONNA DONNA MANIPULAT BEN TX SPINAL 3-4 REGIONS THERAPEUT 63885 ROSEMARIE HOUSTON IC PX 1/> 4 DONNA DONNA AREAS EACH 15 MIN [facility] [address] [facility] DISCHARGE 4 EDW EDW DAY MANAGEMEN T 30 MIN/< SBSQ 41018 [facility] 4 EDW EDW CARE/DAY 25 MINUTES SBSQ 77164 [facility] 4 EDW EDW CARE/DAY 25 MINUTES INITIAL 84194 [facility] 4 EDW EDW CARE/DAY 50 MINUTES AMBULANCE A0429 [facility] SERVICE 4 CO CO BLS AMBULANCE AMBULANCE EMERGENCY TAXIN TAXIN TRANSPORT GROUND A0425 [facility]OB BOB MILEAGE 4 CO CO PER AMBULANCE AMBULANCE STATUTE TAXIN TAXIN MILE ECG 11702 BROCK BROCK ROUTINE 4 GAR GAR ECG W/LEAST 12 LDS I&R ONLY CHIROPRAC 68736 ROSEMARIE HOUSTON TIC 4 DONNA DONNA MANIPULAT BEN [place] SPINAL 3-4 [place] [address] ROSEMARIE HOUSTON 1/> AREAS 4 DONNA DONNA EACH 15 MIN NEUROMUSC REEDUCA RADEX [address] ANKLE 4 WILSON WILSON COMPLETE FT FT MINIMUM 3 DIVYA DIVYA VIEWS OBSERVATI 76630 [facility] CARE 3 LUZ ELENA HUG DISCHARGE PHYSICIAN SERVI MANAGEMEN T SBSQ 53599 [facility] YRN OBSERVATI 3 LUZ ELENA HUG ON PHYSICIAN CARE/DAY SERVI 25 MINUTES INITIAL 88364 [facility] YRN OBSERVATI 3 LUZ ELENA HUG ON PHYSICIAN CARE/DAY SERVI 50 MINUTES CRITICAL 21725 CELLAROSI CELLAROSI CARE 3 - YORBA - YORBA ILL/INJUR PAT PAT ED PATIENT INIT 30-74 MIN ECG 17169 CELLAROSI CELLAROSI ROUTINE 3 - YORBA - YORBA ECG PAT PAT W/LEAST 12 LDS [place] [address] CEE CEE RETROPERI 3 RHO RHO TONEAL REAL TIME W/IMAGE LIMITED ECG 88161 OZOR MAR OZOR MAR ROUTINE 3 ECG W/LEAST 12 LDS I&R ONLY ECG 92685 MARCO LARA ROUTINE 3 RYA RYA ECG W/LEAST 12 LDS I&R ONLY CT THORAX 58321 CARLINE MENSAH 3 W/[place] [address] [facility] INFUSION 33 SMITH [place] [address] THERAPY MEDICAL MEDICAL PROPHYLAX C C IS/DX EA HOUR INJECTION J1200 [address] DIPHENHYD MEDICAL MEDICAL RAMINE C C HCL UP TO 50 MG INFUSION J7030 [facility] NORMAL [address] [place] [address] SALINE MEDICAL MEDICAL SOLUTION C C 1000 CC INJ J1557 [facility] IMMUNE [address] [place] [address] GLOBULIN MEDICAL MEDICAL IV C C NONLYOPHI LIZED 500 [place] [address] [facility] INFUSION [address] [place] [address] THER MEDICAL MEDICAL PROPH C C ADDL SEQUENTIA L TO 1 HR INJ J1720 [facility] HYDROCORT [address] [place] [address] ISONE MEDICAL MEDICAL SODIUM C C SUCCINATE TO 100 MG CALCIUM 36035 [facility] IONIZED [address] [place] [address] MEDICAL MEDICAL C C BASIC 10090 [facility] METABOLIC [address] [place] [address] PANEL MEDICAL [place] [address] [facility] INFUSION [address] [place] [address] THERAPY/P MEDICAL MEDICAL ROPHYLAXI C C S /DX 1ST TO 1 [place] [address] [facility] GAMMAGLOB [address] [place] [address] ULIN IGA MEDICAL MEDICAL IGD IGG C C IGM EACH BLOOD 15710 [facility] COUNT [address] [place] [address] COMPLETE MEDICAL MEDICAL AUTO&AUTO C C DIFRNTL WBC BLOOD 83261 [facility] COUNT 3 N N COMPLETE COMM[facility]ITY COMMUNITY AUTOMATED HOSPITA HOSPITA THERAPEUT 17181 [facility] IC 3 N N INJECTION COMMUNITY COMMUNITY IV PUSH HOSPITA [place] [address] [facility] AMYLASE 3 N N COMMUNITY COMMUNITY HOSPITA HOSPITA COMPREHEN 93012 [facility] SIVE 3 N N METABOLIC COMMUNITY COMMUNITY [place] [address] [facility] LIPASE 3 N N [facility] HOSPITA BLOOD 21265 [facility] COUNT 3 N N SMEAR [facility] MCRSCP [facility] HOSPITA W/[place] D[place] [address] [facility] INFUSION 3 N N HYDRATION [facility] EACH [facility] HOSPITA ADDITIONA L HOUR INJECTION J2405 [facility] 3 N N ONDANSETR [facility] HCL [facility] HOSPITA PER 1 MG COLLECTIO 71369 [facility] N VENOUS 3 N N BLOOD [facility] VENIPUNCT [facility]PITA HOSPITA URE THER 10574 [facility] PROPH/DX 3 N N NJX IV [facility] PUSH [facility] HOSPITA SINGLE/1S T SBST/DRUG URINE 84450 [facility] 3 N N TEST [facility]UAL [facility] [place] [address] [facility] MAXILLOFA 3 N N CIAL W/O [facility]AST [facility] HOSPITA MATERIAL RADEX 69603 [facility] NASAL 3 BONES COMPLETE MINIMUM 3 VIEWS GROUND A0425 [facility] MILEAGE 3 NVERONIKA WHITMORE PER DC EMS CO EMS STATUTE MILE AMBULANCE A0429 [facility] SERVICE 3 N-ISHAN WHITMORE BLS CO EMS CO EMS EMERGENCY TRANSPORT GROUND A0425 [facility] MILEAGE 3 N SCOT T N SCOT T PER CO EMS CO EMS STATUTE MILE CRITICAL [address] ILL/INJUR MEDICAL MEDICAL ED C C PATIENT INIT 30-74 MIN INITIAL 63089 POLA BRIANDA MEÑO INPATIENT 3 HOSP MED CONSULT CTR NEW/ESTAB PT 110 MIN GONADOTRO [address] CHORIONIC MEDICAL [place]ICAL [place] [address] THYRO[place] [address] [facility] THYROID [address] [place] [address] STIMULATI MEDICAL MEDICAL NG C C HORMONE TSH CREATININ 26624 [facility] E OTHER 3 [facility] SOURCE MEDICAL MEDICAL C C GLUCOSE 41196 [facility] BLOOD [address] [place] [address] REAGENT MEDICAL MEDICAL STRIP C C INJECTION J0696 [address] CEFTRIAXO MEDICAL MEDICAL NE SODIUM C C PER 250 MG THERAPEUT 27900 [facility] IC 3 N N INJECTION COMMUNITY COMMUNITY IV PUSH HOSPITA HOSPITA EACH NEW DRUG CULTURE 95856 [facility] BACTERIAL [address] [place] [address] MEDICAL MEDICAL QUANTTATI C C VE COLONY COUNT URINE GONADOTRO 46087 [facility] PIN [address] [place] [address] LUTEINIZI MEDICAL MEDICAL NG C C HORMONE CALCIUM 21389 [facility] IONIZED [address] [place] [address] MEDICAL MEDICAL C C PROCALCIT 02673 [facility] ONIN [address] [place] [address] (PCT) [place] [address] [facility] ESTROGENS [address] [place] [address] TOTAL MEDICAL MEDICAL C C GONADOTRO 18046 [facility] PIN [address] [place] [address] FOLLICLE MEDICAL MEDICAL STIMULATI C C NG HORMONE URNLS DIP [address] STICK/TAB MEDICAL MEDICAL LET RGNT C C AUTO W/O MICROSCOP Y CULTURE 99290 [facility] BACTERIAL [address] [place] [address] BLOOD MEDICAL MEDICAL AEROBIC C C W/[place] [address] [facility] RENIN [address] [place] [address] MEDICAL MEDICAL C C INJECTION J2405 [facility] 3 N N ONDANSETR COMMUNITY COMMUNITY ON HCL HOSPITA HOSPITA PER 1 [place] [address] [facility] INFUSION 3 N N HYDRATION COMMUNITY COMMUNITY EACH HOSPITA HOSPITA ADDITIONA L HOUR THER 32970 [facility] PROPH/DX 3 N N NJX IV COMMUNITY COMMUNITY PUSH HOSPITA HOSPITA SINGLE/1S T SBST/DRUG COMPREHEN 40769 [facility] SIVE 3 N N METABOLIC COMMUNITY COMMUNITY PANEL HOSPITA HOSPITA BLOOD 66613 [facility] COUNT 3 N N COMPLETE [facility] COMMUNITY AUTO&AUTO HOSPITA HOSPITA DIFRNTL WBC BLOOD 72361 [facility] COUNT [address] [place] [address] COMPLETE MEDICAL MEDICAL AUTO&AUTO C C DIFRNTL WBC HEPATIC 72354 [facility] FUNCTION [address] [place] [address] [place] [address] [facility] GAMMAGLOB [address] [place] [address] MEDICAL [place] [address] [facility] INFUSION [address] [place] [address] HOSPITAL THERAPY/P MEDICAL MEDICAL ROPHYLAXI C C S /DX 1ST TO 1 [place] [address] [facility] INFUSION [address] [place] [address] HOSPITAL THERAPY MEDICAL MEDICAL PROPHYLAX C C IS/DX EA HOUR INJECTION J1561 [facility] IMMUNE [address] [place] [address] GLOBULIN MEDICAL MEDICAL NONLYOPHI C C LIZED 500 [place] [address] [facility] CH[facility] PHOSPHORU [address] [place] [address] S MEDICAL MED[place] [address] [facility] MAGNESIUM [address] [place] [address] MEDICAL MEDICAL C C BASIC 64885 [facility] CH[facility] METABOLIC [address] [place] [address] PANEL MEDICAL MEDICAL CALCIUM C C TOTAL BASIC 83048 [facility] METABOLIC [address] [place] [address] PANEL MEDICAL [place] [address] [facility] MAGNESIUM [address] [place] [address] [place] [address] [facility] CH[facility] PHOSPHORU [address] [place] [address] [place] [address] [facility] INFUSION [address] [place] [address] HOSPITAL THERAPY MEDICAL MEDICAL PROPHYLAX C C IS/DX EA HOUR INJ IG J1569 [facility] GAMMAGARD [address] [place] [address] LIQ IV MEDICAL MEDICAL NONLYOPHI C C LIZED 500 [place] [address] [facility] INFUSION [address] [place] [address] HOSPITAL THERAPY/P MEDICAL MEDICAL ROPHYLAXI C C S /DX 1ST TO 1 [place] [address] [facility] GAMMAGLOB [address] [place] [address] MEDICAL IGD IGG C C IGM EACH HEPATIC 72619 [facility] FUNCTION [address] [place] [address] PANEL MEDICAL MEDICAL C C BLOOD 33742 [facility] COUNT [address] [place] [address] COMPLETE MEDICAL MEDICAL AUTO&AUTO C C DIFRNTL WBC BLOOD 06432 [facility] COUNT [address] [place] [address] HOSPITAL COMPLETE MEDICAL MEDICAL AUTO&AUTO C C DIFRNTL WBC HEPATIC 62148 [facility] FUNCTION 3 [facility] [place] [address] [facility] GAMMAGLOB [address] [place] [address] ULIN IGA MEDICAL MEDICAL [place] [address] [facility]FUSION HOSPITAL HOSPITAL THERAPY/P MEDICAL MEDICAL ROPHYLAXI C C S /DX 1ST TO 1 [place] [address] [facility] HOSPITAL THERAPY MEDICAL MEDICAL PROPHYLAX C C [place] [address] [facility] MAGNESIUM [address] [place] [address] MEDICAL MEDICAL C C CALCIUM 92984 [facility] IONIZED [address] [place] [address] [place] [address] [facility] PHOSPHORU [address] [place] [address] S MEDICAL MEDICAL INORGANIC C C COLLECTIO 56166 [facility] N VENOUS [address] [place] [address] BLOOD MEDICAL MEDICAL VENIPUNCT C C URE BASIC 74983 [facility] METABOLIC [address] [place] [address] PANEL MEDICAL MEDICAL CALCIUM C C TOTAL RADIOLOGI 83530 RADIOLOGY DONG C EXAM 3 MEENU CHEST 2 ASSOCIATE VIEWS S OF NOTH FRONTAL&L ATERAL BASIC 43031 [facility] METABOLIC [address] [place] [address] PANEL MEDICAL [place] [address] [facility] CH[facility] PHOSPHORU [address] [place] [address] S MEDICAL [place] [address] [facility] MAGNESIUM [address] [place] [address] [place] [address] [facility] INFUSION [address] [place] [address] HOSPITAL THERAPY MEDICAL MEDICAL PROPHYLAX C C IS/DX EA HOUR CALCIUM 59856 [facility] IONIZED [address] [place] [address] MEDICAL MEDICAL C C INJ IG J1569 [facility] GAMMAGARD [address] [place] [address] LIQ IV MEDICAL MEDICAL NONLYOPHI C C LIZED 500 [place] [address] [facility]ITAL HOSPITAL THERAPY/P MEDICAL MEDICAL ROPHYLAXI C C S /DX 1ST TO 1 [place] [address] [facility] GAMMAGLOB [address] [place] [address] ULIN IGA MEDICAL MEDICAL IGD IGG C C IGM EACH HEPATIC 91810 [facility] FUNCTION [address] [place] [address] PANEL MEDICAL MEDICAL C C BLOOD 85261 [facility] COUNT [address] [place] [address] COMPLETE MEDICAL MEDICAL AUTO&AUTO C C DIFRNTL WBC [facility] 86061 [facility] 3 Y OF ALONZO DAY [place] MANAGEMEN I PHY T 30 MIN/< SBSQ 67415 [facility] 3 Y OF ALONZO CARE/DAY [place] 25 I PHY MINUTES SBSQ 74714 [facility] 3 Y OF ALONZO CARE/DAY [place] 25 I PHY MINUTES SBSQ 36644 [facility] 3 Y OF ALONZO CARE/DAY [place] 25 I PHY MINUTES DXA BONE 58965 [facility] 3 Y OF BRU STUDY 1/> [place] SITES I PHY AXIAL SKEL SBSQ 68294 [facility] 3 Y OF ALONZO CARE/DAY [place] 35 I PHY MINUTES SBSQ 67190 [facility] 3 Y OF ALONZO CARE/DAY [place] 25 I PHY MINUTES INITIAL 48616 [facility] INPATIENT 3 Y OF [facility]ORSTEN [facility] NEW[facility]ESTAB I PHY PT 110 MIN RADIOLOGI 73534 [facility] C [facility]AM 3 Y OF MEENU CHEST 2 [facility] PHY FRONTAL&L ATERAL INITIAL 87385 [facility] 3 Y OF ALONZO CARE/DAY [place] 70 I PHY MINUTES ORTHOTIC 11987 [facility] MGMT&GILBERT [address] [place] [address] [place] UXTR MEDICAL MEDICAL LXTR&/TRN C C K EA 15 THERAPEUT 28972 [facility] IC PX 1/> [address] [place] [address] AREAS MEDICAL MEDICAL EACH 15 C C MIN EXERCISES INJECTION J0610 [facility] CALCIUM [address] [place] [address] GLUCONATE MEDICAL MEDICAL PER 10 C C ML 5% J7060 [facility] DEXTROSE/ [address] [place] [address] WATER [facility] MEDICAL C C THER 81933 [facility] PROPH/DX [address] [place] [address] NJX IV MEDICAL MEDICAL PUSH C C SINGLE/1S T SBST/DRUG CALCIUM 59174 [facility] IONIZED [address] [place] [address] [place] [address] [facility] MAGNESIUM [address] [place] [address] MEDICAL MEDICAL C C NONINVASI 38819 [facility] VE [address] [place] [address] EAR/PULSE MEDICAL MEDICAL OXIMETRY C C MULTIPLE DETER THERAPEUT 49475 [facility] ACTVITY [address] [place] [address] DIRECT PT MEDICAL MEDICAL CONTACT C C EACH 15 MIN HEPATIC 16648 [facility] FUNCTION [address] [place] [address] PANEL MEDICAL MEDICAL C C RENAL 31774 [facility] FUNCTION [address] [place] [address] PANEL MEDICAL MEDICAL C C GROUND A0425 [facility] MILEAGE 3 [facility] [place] [address] [facility] INFUSION [address] [place] [address] THERAPY/P MEDICAL MEDICAL ROPHYLAXI C C S /DX 1ST TO 1 [place] [address] [facility] GAMMAGLOB [address] [place] [address] ULIN IGA [facility] MEDICAL IGD IGG C C IGM EACH COLLECTIO 80923 [facility] N VENOUS [address] [place] [address] BLOOD MEDICAL [place]ICAL [place] [address] [facility] PHOSPHORU [address] [place] [address] [place] [address] [facility] MAGNESIUM [address] [place] [address] MEDICAL MEDICAL C C CALCIUM 01006 [facility] CH[facility] IONIZED [address] [place] [address] MEDICAL MEDICAL C C INJ IG J1569 [facility] GAMMAGARD [address] [place] [address] LIQ IV MEDICAL MEDICAL NONLYOPHI C C LIZED [address] [place] [address] [facility] INFUSION [address] [place] [address] THERAPY MEDICAL MEDICAL PROPHYLAX C C IS/DX EA HOUR PHYSICAL 56361 [facility] THERAPY [address] [place] [address] EVALUATIO MEDICAL MEDICAL N C C BASIC 37409 [facility] METABOLIC [address] [place] [address] PANEL MEDICAL MEDICAL CALCIUM C C TOTAL BASIC 92383 [facility] METABOLIC 2 [facility] PANEL MEDICAL [place] [address] [facility] CH[facility] PHOSPHORU 2 [facility] S MEDICAL MEDICAL INORGANIC C C RHEUMATOI 52960 [facility] D FACTOR 2 [facility] QUANTITAT MEDICAL MEDICAL BEN C C RADIOLOGI 77727 [facility] C 2 HOSP MED Y ARI EXAMINATI CTR ON KNEE 1/2 [place] [address] [facility] INFUSION 2 [facility] THERAPY MEDICAL MEDICAL PROPHYLAX C C IS/DX EA HOUR INJ IG J1569 [facility] GAMMAGARD [address] [place] [address] LIQ IV MEDICAL MEDICAL NONLYOPHI C C LIZED 500 MG RADEX 00801 [facility] HAND 2 2 HOSP MED Y ARI VIEWS CTR CYCLIC 09350 [facility] CITRULLIN [address] [place] [address] ATED MEDICAL MEDICAL PEPTIDE C C ANTIBODY EXTRACTAB 17411 [facility] LE [address] [place] [address] NUCLEAR MEDICAL MEDICAL ANTIGEN C C ANTIBODY ANY METHOD SEDIMENTA 51240 [facility] TION RATE 2 [facility] RBC [place]ICAL [place] [address] [facility] MAGNESIUM 2 [facility] MEDICAL MEDICAL C C CALCIUM 65964 [facility] CH[facility] IONIZED 2 [facility] MEDICAL MEDICAL C C C-REACTIV 18613 [facility] CH[facility] E PROTEIN 2 [facility] MEDICAL MEDICAL C C RADEX 11497 [facility] SPINE 2 HOSP MED Y ARI LUMBOSACR CTR AL 2/3 [place] [address] [facility] [address] [place] [address] ULIN IGA MEDICAL MEDICAL [place] [address] [facility]FUS[facility] THERAPY/P MEDICAL MEDICAL ROPHYLAXI C C S /DX 1ST TO 1 HR HEPATIC 99850 [facility] FUNCTION 2 [facility] PANEL MEDICAL MEDICAL C C BLOOD 75394 [facility] COUNT [address] [place] [address] COMPLETE MEDICAL MEDICAL AUTO&AUTO C C DIFRNTL WBC BLOOD 33962 [facility] COUNT [address] [place] [address] COMPLETE MEDICAL MEDICAL AUTO&AUTO C C DIFRNTL WBC HEPATIC 63313 [facility] FUNCTION [address] [place] [address] [place] [address] [facility] INFUSION [address] [place] [address] THERAPY/P MEDICAL MEDICAL ROPHYLAXI C C S /DX 1ST TO 1 [place] [address] [facility] MEDICAL [place] [address] [facility] PHOSPHORU [address] [place] [address] [facility] MEDICAL INORGANIC C C CALCIUM 14645 [facility] IONIZED [address] [place] [address] [place] [address] [facility] MAGNESIUM [address] [place] [address] MEDICAL MEDICAL C C INJ IG J1569 [address] LIQ IV MEDICAL MEDICAL NONLYOPHI C C LIZED 500 [place] [address] THERAPY MEDICAL MEDICAL PROPHYLAX C C IS/DX EA HOUR BASIC 60324 [facility] METABOLIC [address] [place] [address] PANEL MEDICAL MEDICAL CALCIUM C C TOTAL URINE 59698 PENDELETO PENDELETO 2 N CO N CO TEST [employer] [facility] VISUAL CENTER CENTER COLOR CMPRSN [place]HS CYTP 39018 PATHOLOGY PICKLESIM CERV/VAG 2 & ER JR ERICA AUTO THIN CYTOLOGY [place] [address] THERAPY MEDICAL MEDICAL PROPHYLAX C C IS/DX EA HOUR INJ IG J1569 [address] LIQ IV MEDICAL MEDICAL NONLYOPHI C C LIZED 500 MG 5% J7060 [facility] DEXTROSE/ 2 [facility] [place] [address] [facility] MAGNESIUM [address] [place] [address] MEDICAL MEDICAL C C BASIC [address] PANEL MEDICAL [place] [address] S MEDICAL [place] [address] MEDICAL [place] [address] [facility] INFUSION 2 HOSPITAL HOSPITAL THERAPY/P MEDICAL MEDICAL ROPHYLAXI C C S /DX 1ST TO 1 HR HEPATIC 66641 [facility] FUNCTION 2 [facility] PANEL MEDICAL MEDICAL C C BLOOD 53546 [facility] COUNT 2 [facility] COMPLETE MEDICAL MEDICAL AUTO&[place] [address] [facility] INFUSION 2 HOSPITAL HOSPITAL THERAPY/P MEDICAL MEDICAL ROPHYLAXI C C S /DX 1ST TO 1 HR DRUG 03086 [facility] SCREEN 2 [facility] QUANTITAT MEDICAL MEDICAL BEN C C SIROLIMUS BASIC 22606 [facility] METABOLIC 2 [facility] PANEL MEDICAL MEDICAL CALCIUM C C TOTAL 5% J7060 [facility] DEXTROSE/ 2 [facility] WATER MEDICAL MEDICAL C C INJ IG J1569 [facility] [address] [place] [address] LIQ IV MEDICAL MEDICAL NONLYOPHI C C LIZED [address] [place] [address] [facility] INFUSION 2 [facility] THERAPY MEDICAL MEDICAL PROPHYLAX C [place] [address] [facility] MAGNESIUM 2 [facility] MEDICAL MEDICAL C C COLLECTIO 37763 [facility] N VENOUS [address] [place] [address] BLOOD MEDICAL MEDICAL VENIPUNCT C C URE BASIC 94345 [facility] METABOLIC 2 [facility] PANEL MEDICAL [place] [address] [facility] PHOSPHORU [address] [place] [address] S MEDICAL [place] [address] [facility] CH[facility] FREE [address] [place] [address] THYROXINE [place] [address] [facility] CH[facility] THYROID 2 [facility] STIMULATI MEDICAL MEDICAL NG C C HORMONE TSH DRUG 90465 [facility] CH[facility] SCREEN [address] [place] [address] QUANTITAT MEDICAL MEDICAL [place] [address] [facility] GAMMAGLOB [address] [place] [address] ULIN IGA MEDICAL MEDICAL IGD IGG C C IGM EACH BLOOD 39611 [facility] COUNT [address] [place] [address] COMPLETE MEDICAL MEDICAL AUTOMATED C C HEPATIC 17837 [facility] FUNCTION 2 [facility] PANEL MEDICAL MEDICAL C C ANTIBODY 65717 [facility] BACTERIUM [address] [place] [address] NOT MEDICAL MEDICAL ELSEWHERE C C SPECIFIED ANTIBODY 78166 [facility] VARICELLA [address] [place] [address] -[facility] MEDICAL MEDICAL C C LYMPHOCYT 46464 [facility] E TR [address] [place] [address] MITOGEN/A MEDICAL MEDICAL G INDUCED C C BLASTOGEN ESIS ANTIBODY 79474 [facility] TETANUS [address] [place] [address] MEDICAL MEDICAL C C BLOOD 59057 [facility] COUNT [address] [place] [address] SMEAR MEDICAL MEDICAL MCRSCP C C W/MNL DIFRNTL WBC COUNT FLOW [address] MEDICAL MEDICAL 2-[place] [address] [facility] [place] RETROPERI 2 RADIOLOGY LD IV A TONEAL REAL TIME W/IMAGE LIMITED RADIOLOGI 38587 [facility] [place] GENI C EXAM 2 RADIOLOGY LEON CHEST 2 VIEWS FRONTAL&L ATERAL GENERAL [address] PANEL MEDICAL MEDICAL C C FLOW [address] MEDICAL MEDICAL 2-8 C C [place] MICROSOMA [address] ANTIBODIE MEDICAL MEDICAL S EACH C C THROMBOPL 06622 [facility] ASTIN [address] [place] [address] TIME MEDICAL MEDICAL PARTIAL C C PLASMA/WH OLE BLOOD FLUORESCE [address] NONNFCT MEDICAL MEDICAL AGT ANTB C C SCREEN EA ANTIBODY PROTHROMB 49905 [facility] IN TIME [address] [place] [address] MEDICAL MEDICAL C C IMMUNOASS [address] ANALYTE MEDICAL MEDICAL QUAL/SEMI C C QUAL MULTIPLE STEP BILE 02525 [facility] ACIDS [address] [place] [address] TOTAL MEDICAL MEDICAL C C [id number] INCLUDES MEDICAL MEDICAL F[place] [address] [facility] MAGNESIUM [address] [place] [address] [place] [address] [facility] PHOSPHORU [address] [place] [address] S MEDICAL MEDICAL INORGANIC C C ALPHA-FET 98771 [facility] OPROTEIN [address] [place] [address] [place] [address] [facility] GAMMAGLOB [address] [place] [address] ULIN I[facility] [place] [address] RADIOLOGY AFRFAN ABDOMINAL 2 ANAT REAL ASSOCIATE TIME S OF NOTH W/IMAGE LIMITED GROUND A0425 JERILYN JERILYN MILEAGE 2 FAYETTE FAYETTE PER URBAN URBAN STATUTE COGOVT COGOVT MILE AMB A0427 JERILYN JERILYN SERVICE 2 FAYETTE FAYETTE ALS URBAN URBAN EMERGENCY [place] [address] MICHAEL BAR MICHAEL BAR HEAD/BRAI 2 N W/[place] [address] MICHAEL BAR MICHAEL BAR THORACIC 2 SPINE W/O CONTRAST MATERIAL RADEX 65262 [facility] [place] RODRIGUES FOOT 2 RADIOLOGY TIFFANY COMPLETE MINIMUM [address] [place] [address] BOULDER JUNCTION EBONYKAM 1/> AREAS 2 CHIROPRAC JOSE DAVID EACH 15 TIC MIN CENTER NEUROMUSC REEDUCA THERAPEUT 61386 [facility]/> 2 CHIROPRAC JOSE DAVID AREAS TIC EACH 15 CENTER MIN EXERCISES CHIROPRAC 19225 [facility] TIC 2 CHIROPRAC JOSE DAVID MANIPULAT TIC BEN [place] CENTER SPINAL 3-4 REGIONS STRAPPING 01402 ACS ACS KNEE 2 PRIMARY PRIMARY CARE CARE PHYSICANS PHYSICANS M M BLOOD [address] COUNT 2 [place] WIL[place] COMPLETE FT FT AUTO&AUTO DIVYA STOKES DIFRNTL WBC BASIC [address] METABOLIC 2 [place] PANEL FT FT CALCIUM DIVYA STOKES TOTAL COLLECTIO [address] N VENOUS 2 [place] W[place] BLOOD FT FT VENIPUNCT DIVYA STOKES URE URNLS DIP [address] 2 [place] STICK/TAB FT FT LET RGNT DIV[facility] STOKES NON-AUTO W/O MICRSCP INJ [id number] ST ST HYDROCORT 2 [place] ISONE FT FT SODIUM DIVYA STOKES SUCCINATE TO [address] [place] [address] INFUSION 2 [facility] RACHEL HYDRATION FT FT EACH [facility] ADDITIONA L HOUR THER [address] PROPH/DX 2 WILSONCARLO RACHEL NJX IV FT FT PUSH [facility] SINGLE/1S T SBST/[place] [address] MICHAEL BAR MICHAEL BAR MAXILLOFA 2 CIAL W/[place] [address] [facility] HISTOPLAS 1 [facility] M MEDICAL [place] [address] [facility] CH[facility] PHOSPHORU 1 [facility] S [facility] MEDICAL INORGANIC C C GONADOTRO 36538 [facility] CH[facility] PIN [address] [place] [address] CHORIONIC [facility] MEDICAL C C QUANTITAT BEN UNLISTED 46424 [facility] IMMUNOLOG [address] [place] [address] Y MEDICAL MEDICAL C C COLLECTIO 62257 [facility] CH[facility] N VENOUS 1 [facility] BLOOD [facility] [place] [address] [facility] MAGNESIUM [address] [place] [address] MEDICAL MEDICAL C C BLOOD 19500 [facility] COUNT [address] [place] [address] SMEAR [facility] MEDICAL MCRSCP C C W/MNL DIFRNTL WBC COUNT BLOOD 58454 [facility] COUNT [address] [place] [address] COMPLETE MEDICAL MEDICAL AUTOMATED C C DRUG 19441 [facility] CH[facility]DRENS SCREEN [address] [place] [address] QUANTITAT MEDICAL MEDICAL BEN C C SIROLIMUS COMPREHEN 85466 [facility] CHILDRENS SIVE [address] [place] [address] METABOLIC MEDICAL MEDICAL PANEL C C RADEX 19353 [facility] [place] KOSTELIC RIBS UNI 1 RADIOLOGY ANA W/POSTERO ANT CH MINIMUM 3 [place] [address] [facility] MERCHANT RIB 1 PRIMARY KET FRACTURE CARE [place] [address] [facility] HEAD/BRAI 1 [facility] N W/O CONTRAST MATERIAL THERAPEUT 65929 [facility] IC 1 [facility] PROPHYLAC TIC/DX INJECTION SUBQ/IM INJ [id number] [facility] HYDROCORT 1 [facility] ISONE SODIUM SUCCINATE TO 100 MG GONADOTRO 55568 [facility] PIN 1 [facility] [place] [address] [facility] GAMMAGLOB 1 [facility] ULIN IGA MEDICAL MEDICAL IGD IGG C C IGM EACH CREATININ 75194 [facility] E OTHER 1 [facility] SOURCE MEDICAL MEDICAL C C URNLS DIP 99451 [facility]IL[facility]ENS [address] [place] [address] STICK/TAB MEDICAL MEDICAL LET RGNT C C AUTO W/O MICROSCOP Y ALPHA-FET 03690 [facility]ENS OPROTEIN 1 [facility] SERUM MEDICAL MEDICAL C C COLLECTIO 46997 [facility] CH[facility] N VENOUS 1 [facility] BLOOD MEDICAL MEDICAL VENIPUNCT C C URE FLOW 56523 [facility] CYTOMETRY 1 [facility] CELL MEDICAL MEDICAL SURF C C MARKER TECHL ONLY EA BLOOD 45048 [facility] COUNT [address] [place] [address] SMEAR MEDICAL MEDICAL MCRSCP C C W/MNL DIFRNTL WBC COUNT PROTEIN 78416 [facility]DRENS TOTAL 1 [facility] XCPT MEDICAL MEDICAL [place] [address] [facility] CH[facility] THYROXINE [address] [place] [address] [place] [address] [facility] CH[facility] MAGNESIUM [address] [place] [address] MEDICAL MEDICAL C C MICROSOMA 06966 [facility] CHILDRENS L 1 [facility] ANTIBODIE MEDICAL MEDICAL S EACH C C FLOW 76335 [facility] CHILDRENS CYTOMETRY 1 [facility] INTERPJ MEDICAL MEDICAL 2-8 C C MARKERS FLUORESCE 29015 [facility] NT [address] [place] [address] NONNFCT MEDICAL MEDICAL AGT ANTB C C SCREEN EA ANTIBODY 25 11712 [facility] HYDROXY [address] [place] [address] INCLUDES MEDICAL MEDICAL FRACTIONS C C IF PERFORMED BILE 79259 [facility] ACIDS [address] [place] [address] TOTAL MEDICAL MEDICAL C C IMMUNOASS 77981 [facility] AY [address] [place] [address] ANALYTE MEDICAL MEDICAL QUAL/SEMI C C QUAL MULTIPLE STEP GENERAL 51226 [facility] CHILDRENS HEALTH [address] [place] [address] [place] [address] [facility] CH[facility] PHOSPHORU [address] [place] [address] S MEDICAL MEDICAL INORGANIC C C FLOW 60011 [facility] CH[facility] CYTOMETRY [address] [place] [address] SURF C C MARKER TECHL ONLY 1ST RADIOLOGI 52533 [facility] C EXAM 1 HOSP MED ALLY ANGEL CHEST 2 CTR VIEWS FRONTAL&L ATERAL INCISION 35112 [facility] LEHNERT & 1 PRIMARY RAY DRAINAGE CARE ABSCESS PHYSICANS COMPLICAT M ED/MULTIP LE BLOOD 03947 CHERISE GREGG SMEAR 1 [facility] INTERP PSC PHYS W/[place] [address] [facility] JAM MAXILLOFA 1 RADIOLOGY CIAL W/O CONTRAST MATERIAL GONADOTRO 15689 [facility] PIN 1 [facility] CHORIONIC QUALITATI VE RADEX 80558 RADIOLOGY LAIB JOHN SPINE 0 CERVICAL ASSOCIATE 4 OR 5 S PSC VIEWS RADIOLOGI 79053 RADIOLOGY LAIB JOHN C EXAM 0 CHEST 2 ASSOCIATE VIEWS S PSC FRONTAL&L ATERAL URINE 25446 GRIGSBY, 0 WIL[facility] CANDIDO TEST VISUAL PHYSICIAN COLOR S CMPRSN METHS Encounters Encounter Start End Date Code Location Performer Type Date HOSPITAL ST - 7 7 [facility] OUTPATIEN T HEALTHCAR E EDGE INITIAL 67776 [facility] PREVENTIV 7 7 [facility] E MEDICINE PHYSICIAN NEW PT S AGE 18-39YRS EMERGENCY 94109 [facility] 7 7 EMERGENCY DEPARTMEN T VISIT PHYSICIAN HIGH/URGE S NT SEVERITY OFFICE 25958 LAN[facility] GEORGEPATIJOE 7 7 CHIROP[facility]AC T VISIT TIC 15 CENTER MINUTES OFFICE 82952 [facility] OUTPATIEN 7 7 HEALTHCAR T VISIT 5 E MINUTES [facility] - 7 7 HEALTHCAR OUTPATIEN E T HOSPITALS OFFICE 08312 ALVIN SINGLETON OUTPATIEN 7 7 MEDICAL T NEW 45 SERV MINUTES [facility]OUND[facility] N OFFICE 91233 LANNY GEORGEPATIJOE 7 7 CHIROPRAC T VISIT TIC 15 CENTER MINUTES HOSPITAL [facility] - 6 6 [facility] OUTPATIEN E T HOSPITALS OFFICE 96971 [facility] OUTPATIEN 6 6 HEALTHCAR T VISIT 5 E MINUTES HOSPITALS OFFICE 48439 [facility] OUTPATIEN 6 6 [place] KANG T VISIT PHYSICIAN 15 S ASSIST MINUTES EMERGENCY 11626 TYLER PIÑA 6 6 PHYSICIAN CURTIS DEPARTMEN S, PLLC T VISIT MODERATE SEVERITY OFFICE [address] [facility] OUTPATIEN 6 6 PARMINDER MIN T VISIT HOSPITAL 25 MEDICAL [facility] - 6 6 [facility] OFFICE 13929 [facility] 6 6 CHIROPRAC T VISIT TIC 15 CENTER MINUTES EMERGENCY 42049 TYLER PIÑA 6 6 PHYSICIAN CURTIS DEPARTMEN S, PLLC T VISIT MODERATE SEVERITY HOSPITAL [facility] - 6 6 Y [facility] T OFF[facility] 60032 [facility] T VISIT 5 HOSPITAL MINUTES OFFICE 82496 [facility] 6 6 CHIROPRAC GAR T VISIT TIC 15 CENTER MINUTES EMERGENCY 16111 [facility] EM[facility] CHICHI 5 5 EMERGENCY DEPARTMEN T VISIT PHYSICIAN HIGH/URGE S NT SEVERITY OFFICE 32267 ALVIN CARRANZA OUTPATIEN 5 5 MEDICAL JUS T VISIT SERV 15 FOUNDATIO MINUTES N HOSPITAL [facility] 28818 UN[facility] OUTPATIEN 5 5 Y T VISIT 5 HOSPITAL MINUTES OFFICE 35641 [facility] 5 5 CHIROPRAC T VISIT TIC 15 CENTER MINUTES HOSPITAL CARDINAL - 5 5 [facility] OUTPATIEN REHABILIT T ATION OFFICE 79282 [place] ERLANDSON OUTPATIEN 5 5 MEDICAL SHEA T VISIT SERV 25 FOUNDATIO MINUTES N OFFICE 44674 CARD[facility]AL OUTPATIEN 5 5 [facility] T VISIT REHABILIT 10 ATION MINUTES HOSPITAL UNIVERSIT - 5 5 Y OUTPATIEN HOSPITAL T OFFICE 17699 UNIVERSIT OUTPATIEN 5 5 Y T VISIT 5 HOSPITAL MINUTES OFFICE 07242 PARMINDER TRAN OUTPATIEN 5 5 HOSPITAL MIN T NEW 45 MEDICAL MINUTES ASSO OFFICE 15998 ALVIN CARRANZA OUTPATIEN 5 5 MEDICAL JUS T VISIT SERV 25 FOUNDATIO MINUTES N HOSPITAL CARDINAL - 5 5 [facility] INPATIENT REHABILIT ATION EMERGENCY 58498 [facility] CELLAROS[facility] DEPT 5 5 LUZ ELENA - YORBA VISIT EMERGENCY PAT HIGH PHYS SEVERITY& THREAT FUNCJ OFFICE 93899 COLE NOLANON OUTPATIEN 5 5 COL COL T NEW 20 MINUTES EMERGENCY 89595 [facility] GERONIMO ERIC DEPT 4 4 LUZ ELENA VISIT EMERGENCY HIGH PHYS SEVERITY& TH[facility]AT [facility] - 4 4 Y OF INPATIENT [facility]upesh [facility] OFFICE 89284 ROSEMARIE HOUSTON OUTPATIEN 4 4 DONNA DONNA T VISIT 15 MINUTES EMERGENCY 14034 MICHELLE KIMI SAMANOO HO DEPT 4 4 VISIT HIGH SEVERITY& THREAT FUNCJ OFFICE 50404 ROSEMARIE HOUSTON OUTPATIEN 4 4 DONNA DONNA T VISIT 15 MINUTES EMERGENCY 37691 HE[facility] CADET 4 4 DEPARTMEN T VISIT HIGH/URGE NT SEVERITY HOSPITAL ST - 4 4 [facility] OUTPATIEN FT T DIVYA EMERGENCY 28433 ST 4 4 WIL[facility] DEPARTMEN FT T VISIT DIVYA MODERATE SEVERITY EMERGENCY 51340 LNIDA VARGAS DEPT 3 3 VISIT HIGH SEVERITY& THREAT FUNCJ EMERGENCY 03763 JUSTIN ANDERSON 3 3 SCO SCO DEPARTMEN T VISIT HIGH/URGE NT SEVERITY EMERGENCY 89530 MARCO LARA DEPT 3 3 RYA RYA VISIT HIGH SEVERITY& THREAT [facility] [place] 82020 3 [facility] EM[facility] 53522 [facility] 3 3 N [facility] T VISIT HOSPITA HIGH/URGE NT SEVERITY [facility] [place] 50000 3 N [facility] HOSPITA EMERGENCY 98035 DOMINGUEZ MIX 3 3 EITAN EITAN DEPARTMEN T VISIT MODERATE SEVERITY EMERGENCY 96855 [facility] 3 3 N [facility] T VISIT HOSPITA HIGH/URGE NT SEVERITY [facility] [place] 50000 3 [facility] 58818 CELLAROSI CELLAROSI 3 3 - [facility] PAT PAT T VISIT HIGH/URGE NT SEVERITY HOSPITAL [address] [facility] [place] [address] 3 N [facility] HOSPITA EMERGENC[facility] 06677 [facility] VARGAS DEPT 3 3 EMERGENCY VISIT SERVICES HIGH SEVERITY& THREAT FUN EMERGENCY 50516 [facility] MIX 3 3 EMERGENCY EITAN DEPARTMEN SERVICES T VISIT MODERATE SEVERITY OFFICE 46905 [facility] 3 3 HOSP MED GRE T VISIT CTR 25 MINUTES [facility] [place] 82020 3 [facility] T C OFFICE 91892 [facility] 3 3 Y OF WILLI T VISIT [place] 25 I PHY MINUTES OFFICE 19870 [facility] 3 3 Y T VISIT 5 HOSPITAL MINUTES OFFICE 30755 [facility]ILDRENMarino [facility] OUTPATIEN 3 3 HOSP MED GRE T VISIT CTR 15 MINUTES [facility]PITAL [facility] 46476 [facility]ILDRENMarino [facility] OUTPATIEN 3 3 HOSP MED GRE T VISIT CTR 25 [facility]UTES [facility] [address] [facility] [address] - 3 3 [facility] 3 3 [facility] C OFFICE 13063 [facility] 3 HOSPITAL EITAN T VISIT MEDICAL 25 C MINUTES EMERGENCY 57879 [facility] 3 HOSPITAL VISIT MEDICAL HIGH C SEVERITY& THREAT [facility] 3 3 [facility] 3 3 [facility] 2 2 [facility] T C OFFICE 66698 CHILDREN SAM RIN OUTPATIEN 2 2 HOSP MED T NEW 45 CTR MINUTES OFFICE 34289 [facility]DRENS CUTHRELL OUTPATIEN 2 2 HOSPITAL EITAN T VISIT MEDICAL 25 C MINUTES HOSPITAL CHILDRENS - 2 2 [facility] T C OFFICE 57559 CHILDRENS CUTHRELL OUTPATIEN 2 2 HOSP MED EITAN T VISIT CTR 25 MINUTES [facility] 59612 [facility] PREVENTIV 2 2 N CO N CO E MED EST [facility] PATIENT CENTER CENTER 18-39 YRS [facility] CHILDRENS - 2 2 [facility] T C OFFICE 28426 CHILDRENS FILIPOVIC OUTPATIEN 2 2 HOSP MED H EMILY T VISIT CTR 25 MINUTES OFFICE 29208 CHILDRENS RAUL OUTPATIEN 2 2 HOSPITAL MAR T VISIT MEDICAL 25 C MINUTES [facility]OSP[facility] - [facility] C OFFICE 75413 POLA [facility] OUTPATIEN 2 2 HOSPITAL GRE T VISIT MEDICAL 40 C MINUTES OFFICE 14064 [facility] OUTPATIEN 2 2 HOSPITAL T VISIT MEDICAL 15 C MINUTES OFFICE 20490 CHILDRENMarino SOOD OUTPATIEN 2 2 HOSP MED H EMILY T NEW 30 CTR MINUTES [facility] [address] [facility] [address] [facility] DEPT 2 2 PRIMARY VISIT CARE HIGH PHYSICANS SEVERITY& M THREAT FUNCJ EMERGENCY 09258 ACS AUBRIE 2 2 PRIMARY EDW DEPARTMEN CARE T VISIT PHYSICANS HIGH/URGE M NT SEVERITY [facility]OS[facility] OTHER 2 2 HOSPITAL MEDICAL C OFFICE 76602 [facility] T [facility]ISIT MEDICAL [address] - 2 2 [facility] EMERGENC[facility] 00494 [facility] DEPT 2 2 LUZ ELENA VISIT EMERGENCY HIGH PHYS SEVERITY& THREAT FUNCJ EMERGENCY 61232 ACS 2 2 PRIMARY DEPARTMEN CARE T VISIT PHYSICANS HIGH/URGE M NT SEVERITY EMERGENCY 50484 ACS 2 2 PRIMARY DEPARTMEN CARE T VISIT PHYSICANS MODERATE M SEVERITY OFFICE 11878 [facility] JOSE DAVID T NEW 30 TIC MINUTES CENTER EMERGENCY 54316 ACS 2 2 PRIMARY DEPARTMEN CARE T VISIT PHYSICANS HIGH/URGE M NT SEVERITY EMERGENCY 03642 ST 2 2 [facility] DEPARTMEN FT T VISIT DIVYA HIGH/URGE NT SEVERITY EMERGENCY 29206 IVET PEREZ DEPT 2 2 VISIT HIGH SEVERITY& THREAT [facility] H[facility] ST - 2 2 [facility] OUTPATIEN FT T DIVYA EMERGENCY 78921 DIVYA DIVYA 2 2 DIANA DIANA DEPARTMEN T VISIT HIGH/URGE NT SEVERITY HOSPITAL [facility] - OTHER 1 1 HOSPITAL MEDICAL C OFFICE 82401 YAZIGI YAZIGI OUTPATIEN 1 1 NAD NAD T VISIT 25 MINUTES OFFICE 91712 [facility] OUTPATIEN 1 1 HOSPITAL T VISIT MEDICAL 40 C MINUTES EMERGENCY 46104 [facility] MERCHANT 1 1 PRIMARY KET DEPARTMEN CARE T VISIT PHYSICANS HIGH/URGE M NT SEVERITY EMERGENCY 06274 [facility] 1 1 [facility] DEPARTMEN T VISIT HIGH/URGE NT SEVERITY EMERGENCY 52334 ACS SERRANO 1 1 PRIMARY PHI DEPARTMEN CARE T VISIT PHYSICANS MODERATE M SEVERITY [facility] - OTHER 1 1 HOSPITAL MEDICAL C OFFICE 18690 [facility]DRENS YAZIGI OUTPATIEN 1 1 HOSP MED NAD T VISIT CTR 25 MINUTES OFFICE 70918 [facility] OUTPATIEN 1 1 HOSPITAL T VISIT MEDICAL [address]ER[address] [facility] 1 1 E[facility] DEPARTMEN T VISIT LOW/MODER SEVERITY [facility] - 1 1 [facility] OUTPATIEN T EMERGENCY 76143 [facility] LEHNERT 1 1 PRIMARY RAY DEPARTMEN CARE T VISIT PHYSICANS HIGH/URGE M NT SEVERITY EMERGENCY 96420 [facility] 1 1 LUZ ELENA DEPARTMEN EMERGENCY T VISIT PHYS MODERATE SEVERITY HOSPITAL [facility] - 1 1 HOSPITAL OUTPATIEN T EMERGENCY 77086 [facility] 1 1 EAST DEPARTMEN T VISIT MODERATE SEVERITY EMERGENCY 82653 ACS STACK MEENU 1 1 PRIMARY DEPARTMEN CARE T VISIT PHYSICANS HIGH/URGE M NT SEVERITY HOSPITAL [facility] - 1 1 EAST OUTPATIEN T EMERGENCY 24145 EMERGENCY EMERY CHICHI 0 0 CARE DEPARTMEN PHYS T VISIT [facility] HIGH/URGE NT SEVERITY OFFICE 44822 ST GRIGSBY OUTPATIEN 0 0 [facility] SHE T VISIT 25 PHYSICIAN MINUTES S EMERGENCY 83992 EMERGENCY EMERY CHICHI 0 0 CARE DEPARTMEN PHYS T VISIT [facility] HIGH/URGE NT SEVERITY OFFICE 75946 ST GRIGSBY OUTPATIEN 0 0 [facility] SHE T VISIT 25 PHYSICIAN MINUTES S EMERGENCY [address]20 [facility] MACIAS 0 0 [facility] ARI DEPARTMEN MED CTR T VISIT HIGH/URGE NT SEVERITY EMERGENCY 40931 ST 0 0 [facility] DEPARTMEN T VISIT MEDICALCE MODERATE NTER SEVERITY HOSPITAL ST - 0 0 [facility] OUTPATIEN T MEDICALCE NTER EMERGENCY 56280 EMERGENCY VEST ANA 0 0 CARE DEPARTMEN PHYS T VISIT [facility] HIGH/URGE NT SEVERITY OFFICE 43156 ST GRIGS[facility], OUTPATIEN 0 0 [facility] CANDIDO T VISIT 15 PHYSICIAN MINUTES S OFFICE 42931 ST GRIGS[facility], OUTPATIEN 0 0 [facility] CANDIDO T VISIT 25 PHYSICIAN MINUTES S
--- OUTSIDE RECORDS SUMMARY | 2017-03-29 01:59 | External Medical Summary Rpt | CCD ---
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 EXTRASPIN AL 1/> REGION APPLICATI 11280 [facility] CHIROPRAC MODALITY TIC TIC 1/> AREAS CENTER CENTER HOT/COLD PACKS MANUAL 93323 [facility] THERAPY 7 CH[facility]OPRAC TQS 1/> TIC REGIONS CENTER EACH 15 MINUTES [facility]AC 75704 [facility] 7 [facility] MANIPULAT TIC B[facility] CENTER SPINAL 3-4 REGIONS MANUAL 64017 [facility] THERAPY 7 CHIROPRAC TQS 1/> TIC REGIONS CENTER EACH 15 MINUTES [facility]AC 71729 [facility] 7 [facility]OPRAC MANIPULAT TIC B[facility] TX CENTER SPINAL 3-4 REGIONS APPLICATI 58464 [facility] MODALITY TIC 1/> AREAS CENTER HOT/COLD PACKS [facility]AC 03981 [facility] TIC 7 CHIROPRAC MANIPLTV TIC TX CENTER EXTRASPIN AL 1/> REGION APPL 63625 [facility] MODALITY 7 CHIROPRAC CHIROPRAC 1/> AREAS TIC TIC TRACTION CENTER CENTER MECHANICA L APPL 52179 [facility] MODALITY 7 CHIROPRAC 1/> AREAS TIC TRACTION CENTER MECHANICA L APPL 19050 [facility] MODALITY 7 CHIROPRAC 1/> AREAS TIC ELEC CENTER STIMJ UNATTENDE D CHIROPRAC 19677 [facility] TIC 7 CHIROPRAC MANIPLTV TIC TX CENTER EXTRASPIN AL 1/> REGION APPLICATI 65240 [facility] ON 7 CHIROPRAC CHIROPRAC MODALITY TIC TIC 1/> AREAS CENTER CENTER [place] [address] [place] 1/> AREAS 7 CHIROPRAC EACH 15 TIC MINUTES CENTER MASSAGE MANUAL 22748 [facility] THERAPY 7 CHIROPRAC TQS 1/> TIC REGIONS CENTER EACH 15 MINUTES CHIROPRAC 44304 [facility] TIC 7 CHIROPRAC MANIPULAT TIC BEN [facility] CENTER SPINAL 3-4 REGIONS MANUAL 12863 [facility] [place] THERAPY 7 CHIROPRAC TQS 1/> TIC REGIONS CENTER EACH 15 MINUTES APPLICATI 52703 [facility] ON 7 [facility]OPRAC CHIROPRAC MODALITY TIC TIC 1/> AREAS CENTER CENTER HOT/COLD PACKS CHIROPRAC 69357 [facility] [place] TIC 7 CHIROPRAC MANIPLTV TIC TX CENTER EXTRASPIN AL 1/> REGION APPL 17012 [facility] [place] MODALITY 7 CHIROPRAC 1/> AREAS TIC ELEC CENTER STIMJ UNATTENDE D APPL 63302 [facility] [place] MODALITY 7 CHIROPRAC 1/> AREAS TIC TRACTION CENTER MECHANICA L CHIROPRAC 98819 [facility] TIC 7 CHIROPRAC MANIPULAT TIC [facility] CENTER SPINAL 3-4 REGIONS APPL 62063 [facility] MODALITY 7 CHIROPRAC CHIROPRAC 1/> AREAS TIC TIC TRACTION CENTER CENTER MECHANICA L APPL 50176 [facility] MODALITY 7 CHIROPRAC 1/> AREAS TIC ELEC CENTER STIMJ UNATTENDE D CHIROPRAC 85005 [facility] TIC 7 CHIROPRAC MANIPLTV TIC TX CENTER EXTRASPIN AL 1/> REGION APPLICATI 08501 [facility] ON 7 CH[facility]OPRAC MODALITY TIC 1/> AREAS CENTER [place] [address] [facility] 1/> AREAS 7 CHIROPRAC EACH 15 TIC MINUTES CENTER MASSAGE CH[facility]OPRAC 79908 [facility] TIC 7 CHIROPRAC MANIPULAT TIC BEN TX CENTER SPINAL 3-4 REGIONS APPLICATI 91320 [facility] [place] ON 7 CHIROPRAC MODALITY TIC 1/> AREAS CENTER [place] [address] [facility] 1/> AREAS 7 CHIROPRAC EACH 15 TIC MINUTES CENTER MASSAGE CHIROPRAC 54458 [facility] TIC 7 CHIROPRAC MANIPLTV TIC TX CENTER EXTRASPIN AL 1/> REGION APPL 22401 [facility] MODALITY 7 CHIROPRAC 1/> AREAS TIC ELEC CENTER STIMJ UNATTENDE D APPL 53701 [facility]AL[facility] 7 CHIROPRAC 1/> AREAS TIC TRACTION CENTER MECHANICA L CHIROPRAC 31287 [facility] TIC 7 CHIROPRAC MANIPULAT TIC BEN TX CENTER SPINAL 3-4 REGIONS CHIROPRAC 68216 [facility] TIC 7 CHIROPRAC MANIPULAT TIC B[facility] TX CENTER SPINAL 3-4 REGIONS APPL 41889 [facility] MODALITY 7 CHIROPRAC 1/> AREAS TIC ELEC CENTER STIMJ UNATTENDE D APPL 02469 [facility] JODIE MODALITY 7 CHIROPRAC 1/> AREAS TIC TRACTION CENTER MECHANICA L CHIROPRAC 43909 [facility] TIC 7 CHIROPRAC MANIPLTV TIC TX CENTER EXTRASPIN AL 1/> [place] [address] [facility] 1/> AREAS 7 CHIROPRAC EACH 15 TIC MINUTES CENTER MASSAGE APPLICATI 89265 [facility] FELICIANO ON 7 CHIROPRAC MODALITY TIC 1/> AREAS CENTER HOT/COLD PACKS THERAPEUT 94315 [facility]EL[place]IAN[place] IC PX 1/> 7 CHIROPRAC AREAS TIC EACH 15 CENTER MIN EXERCISES APPLICATI 74950 [facility] LUK[place] ON 7 CHIROPRAC MODALITY TIC 1/> AREAS CENTER [place] [address] [facility] LUKING 1/> AREAS 7 CHIROPRAC EACH 15 TIC MINUTES CENTER MASSAGE CHIROPRAC 42205 [facility] L[place] TIC 7 CHIROPRAC MANIPLTV TIC TX CENTER EXTRASPIN AL 1/> REGION APPL 94664 [facility] [place] MODALITY 7 CHIROPRAC 1/> AREAS TIC TRACTION CENTER MECHANICA L APPL 54666 [facility] [place] MODALITY 7 CHIROPRAC 1/> AREAS TIC ELEC CENTER STIMJ UNATTENDE D SELF-CARE 49367 [facility] AQUINOKING /HOME 7 [facility] MGMT TIC TRAINING CENTER EACH 15 MINUTES CHIROPRAC 57459 [facility] PHILLIPS TIC 7 CHIROPRAC MANIPULAT TIC BEN TX CENTER SPINAL 3-4 REGIONS CHIROPRAC 84185 [facility] JODIE TIC 7 CHIROPRAC MANIPULAT TIC BEN TX CENTER SPINAL 3-4 REGIONS SELF-CARE 29307 [facility] JODIE /HOME 7 CHIROPRAC MGMT TIC TRAINING CENTER EACH 15 MINUTES APPL 12638 [facility] PARKER MODALITY 7 CHIROPRAC 1/> AREAS TIC ELEC CENTER STIMJ UNATTENDE D CHIROPRAC 22066 [facility] PARKER TIC 7 CHIROPRAC MANIPLTV TIC TX CENTER EXTRASPIN AL 1/> [place] [address] [facility] PARKER 1/> AREAS 7 CHIROPRAC EACH 15 TIC MINUTES CENTER MASSAGE APPLICATI 70444 [facility] FELICIANO ON 7 CHIROPRAC MODALITY TIC 1/> AREAS CENTER HOT/COLD PACKS NONEMERGE A0100 LKLP CAC BENNETTS NCY 6 INC TRANSPORT TRANSPORT REGION 9 ATION CO ATION; L TAXI CHIROP[facility]AC 56643 COUNTS INCLUDE 234 [facility] TIC 6 CH[facility]OPRAC MANIPLTV TIC TX CENTER EXTRASPIN AL 1/> REGION CHIROPRAC 92186 COUNTS INCLUDE 234 [facility]ELOS TIC 6 CHIROPRAC MANIPULAT TIC BEN TX CENTER SPINAL 3-4 REGIONS THERAPEUT 20674 COUNTS INCLUDE 234 [facility] BA[facility]UELOS IC PX 1/> 6 CHIROPRAC AREAS TIC EACH 15 CENTER MIN EXERCISES THERAPEUT 59963 [facility] IC PX 1/> 6 CHIROPRAC AREAS TIC EACH 15 CENTER MIN EXERCISES CHIROPRAC 77779 COUNTS INCLUDE 234 [facility] TIC 6 CHIROPRAC MANIPULAT TIC BEN TX CENTER SPINAL 3-4 REGIONS APPL 50058 [facility] DAY 6 CHIROPRAC CHIROPRAC 1/> AREAS TIC TIC ELEC CENTER CENTER STIMJ UNATTENDE D CHIROPRAC 70519 COUNTS INCLUDE 234 [facility]ELOS TIC 6 CHIROPRAC MANIPLTV TIC TX CENTER EXTRASPIN AL 1/> REGION BLOOD 33076 THE THE COUNT [address] [place] [address] AUTOMATED HEMOGLOBI 12961 THE THE N [address] [place] [address] [place] [address] THE THE AMYLASE [address] [place] [address] [place] [address] THE THE FREE [address] [place] [address] [place] [address] THE THE THYROID [address] [place] [address] NG HORMONE TSH COMPREHEN [id number] THE THE SIVE [address] [place] [address] [facility]AB[facility] [place] [place] [address] THE THE LIPASE [address] [place] [address] [place] [address] THE THE PARATHORM [address] [place] [address] CALCIUM 06074 THE THE IONIZED [address] [place] [address] COLLECTIO 56102 THE THE N VENOUS [address] [place] [address] VENIPUNCT URE THERAPEUT 75546 COUNTS INCLUDE 234 [facility]UELOS IC PX 1/> 6 CHIROPRAC AREAS TIC EACH 15 CENTER MIN EXERCISES CHIROPRAC 62878 COUNTS INCLUDE 234 [facility] BAU[facility]ELOS TIC 6 [facility] MANIPULAT TIC EBN TX CENTER SPINAL 3-4 REGIONS APPL 64821 [facility] MOD[facility]ITY 6 CHIROPRAC CHIROPRAC 1/> AREAS TIC TIC TRACTION CENTER CENTER MECHANICA L CHIROPRAC 17194 [facility] TIC 6 CHIROPRAC MANIPLTV TIC TX CENTER EXTRASPIN AL 1/> REGION CHIROPRAC 71189 [facility] EDDA TIC 6 CHIROPRAC MANIPLTV TIC TX CENTER EXTRASPIN AL 1/> REGION APPL 24379 [facility] MODALITY 6 CHIROPRAC CHIROPRAC 1/> AREAS TIC TIC TRACTION CENTER CENTER MECHANICA L CHIROPRAC 51723 [facility] TIC 6 CHIROPRAC MANIPULAT TIC BEN TX CENTER SPINAL 3-4 REGIONS THERAPEUT 19622 [facility] EDDA IC PX 1/> 6 CHIROPRAC AREAS TIC EACH 15 CENTER MIN EXERCISES THERAPEUT 24761 [facility] EDDA IC PX 1/> 6 CHIROPRAC AREAS TIC EACH 15 CENTER MIN EXERCISES APPL 96418 [facility] MODALITY 6 CHIROPRAC CHIROPRAC 1/> AREAS TIC TIC TRACTION CENTER CENTER MECHANICA L CHIROPRAC 49094 [facility] TIC 6 CHIROPRAC MANIPULAT TIC BEN TX CENTER SPINAL 3-4 REGIONS APPL 46397 [facility] EDDA MODALITY 6 CHIROPRAC 1/> AREAS TIC ELEC CENTER STIMJ UNATTENDE D CHIROPRAC 81579 [facility] EDDA TIC 6 CHIROPRAC MANIPLTV TIC TX CENTER EXTRASPIN AL 1/> REGION CHIROPRAC 11731 [facility] EDDA TIC 6 CHIROPRAC MANIPLTV TIC TX CENTER EXTRASPIN AL 1/> REGION SELF-CARE 62861 [facility] EDDA /HOME 6 CH[facility]OPRAC MGMT TIC TRAINING CENTER EACH 15 MINUTES CHIROPRAC 48789 [facility] EDDA TIC 6 CHIROPRAC MANIPULAT TIC BEN TX CENTER SPINAL 3-4 REGIONS THERAPEUT 25606 [facility] IC PX 1/> 6 CHIROPRAC CHIROPRAC AREAS TIC TIC EACH 15 CENTER CENTER MIN EXERCISES RADIOLOGI 06796 [facility] ALL C 6 MEDICAL EXAMINATI IMAGING ON FOOT 2 ASS VIEWS SURGICAL L3260 ADVANCED ADVANCED BOOT/SHOE 6 TECHNOLOG TECHNOLOG EACH IES INC IES INC APPL 14715 [facility] KURTISMDRAY BERNSTEIN 6 CHIROPRAC CHIROPRAC 1/> AREAS TIC TIC ELEC CENTER CENTER STIMJ UNATTENDE D CHIROPRAC 69499 [facility] TIC 6 CHIROPRAC MANIPULAT TIC BEN TX CENTER SPINAL 3-4 REGIONS CHIROPRAC 28589 [facility] TIC 6 CHIROPRAC MANIPLTV TIC TX CENTER EXTRASPIN AL 1/> REGION THERAPEUT 82240 [facility] EDDA IC PX 1/> 6 CHIROPRAC AREAS TIC EACH 15 CENTER MIN EXERCISES THERAPEUT 84141 [facility] KURTISMDRAY IC PX 1/> 6 CHIROPRAC CHIROPRAC AREAS TIC TIC EACH 15 CENTER CENTER MIN EXERCISES CHIROPRAC 16235 [facility] EDDA TIC 6 CHIROPRAC GAR MANIPLTV TIC TX CENTER EXTRASPIN AL 1/> REGION CHIROPRAC 09641 [facility] EDDA TIC 6 CHIROPRAC GAR MANIPULAT TIC BEN TX CENTER SPINAL 3-4 REGIONS CHIROPRAC 98280 [facility] EDDA TIC 6 CHIROPRAC MANIPULAT TIC BEN TX CENTER SPINAL 3-4 REGIONS CHIROPRAC 48702 [facility] EDDA TIC 6 CHIROPRAC MANIPLTV TIC TX CENTER EXTRASPIN AL 1/> REGION THERAPEUT 65659 [facility] EDDA IC PX 1/> 6 [facility]OPRAC AREAS TIC EACH 15 CENTER MIN EXERCISES THERAPEUT 31181 [facility] RILEY IC PX 1/> 6 CH[facility]OPRAC AREAS TIC EACH 15 CENTER MIN EXERCISES CHIROPRAC 64309 [facility] LANNY TIC 6 CHIROPRAC CHIROPRAC MANIPLTV TIC TIC TX CENTER CENTER EXTRASPIN AL 1/> REGION CHIROPRAC 23273 [facility] EDDA TIC 6 CHIROPRAC MANIPULAT TIC BEN TX CENTER SPINAL 3-4 REGIONS APPL 78935 [facility] MOD[facility] 6 CHIROPRAC 1/> AREAS TIC TRACTION CENTER MECHANICA L CHIROPRAC 72660 COUNTS INCLUDE 234 [facility] ED[facility] TIC 6 CHIROPRAC MANIPLTV TIC TX CENTER EXTRASPIN AL 1/> REGION THERAPEUT 70636 [facility]/> 6 CHIROPRAC CHIROPRAC AREAS TIC TIC EACH 15 CENTER CENTER MIN EXERCISES CHIROPRAC 27353 COUNTS INCLUDE 234 [facility] ED[facility] TIC 6 CHIROPRAC MANIPULAT TIC BEN TX CENTER SPINAL 3-4 REGIONS BASIC 80455 [facility] METABOLIC 6 Y Y PANEL [facility] HOSPITAL CALCIUM TOTAL COLLECTIO 14816 [facility] N VENOUS 6 Y Y BLOOD [facility] VENIPUNCT URE PROTHROMB 31055 [facility] IN TIME 6 Y Y [facility] THROMBOPL 79677 [facility] ASTIN 6 Y Y TIME HOSPITAL HOSPITAL PARTIAL PLASMA/WH OLE BLOOD BLOOD 70647 [facility] COUNT 6 Y Y COMPLETE HOSPITAL HOSPITAL AUTOMATED CHIROPRAC 52015 COUNTS INCLUDE 234 [facility] ED[facility] TIC 6 CHIROPRAC GAR MANIPLTV TIC TX CENTER EXTRASPIN AL 1/> REGION CHIROPRAC 50575 COUNTS INCLUDE 234 [facility] ED[facility] TIC 6 CHIROPR[facility] GAR MANIPULAT TIC BEN TX CENTER SPINAL 3-4 REGIONS MANUAL 48660 [facility] THERAPY 6 CHIROPRAC CHIROPRAC TQS 1/> TIC TIC REGIONS CENTER CENTER EACH 15 MINUTES MANUAL 04298 [facility] THERAPY 6 CHIROPRAC TQS 1/> TIC REGIONS CENTER EACH 15 MINUTES THERAPEUT 65064 [facility] HULL[facility] IC PX 1/> 6 CHIROPRAC CHIROPRAC AREAS TIC TIC EACH 15 CENTER CENTER MIN EXERCISES CHIROPRAC 42740 [facility] EDDA TIC 6 CHIROPRAC MANIPULAT TIC BEN TX CENTER SPINAL 1-2 REGIONS CHIROPRAC 58307 [facility] EDDA TIC 6 CHIROPRAC MANIPLTV TIC TX CENTER EXTRASPIN AL 1/> REGION CHIROPRAC 63655 COUNTS INCLUDE 234 [facility] TIC 6 CHIROPRAC GAR MANIPLTV TIC TX CENTER EXTRASPIN AL 1/> REGION CHIROPRAC 47757 COUNTS INCLUDE 234 [facility] TIC 6 CHIROPRAC GAR MANIPULAT TIC BEN TX CENTER SPINAL 3-4 REGIONS THERAPEUT 13977 [facility] IC PX 1/> 6 CHIROPRAC CHIROPRAC AREAS TIC TIC EACH 15 CENTER CENTER MIN EXERCISES THERAPEUT 39849 [facility] IC PX 1/> 6 CHIROPRAC AREAS TIC EACH 15 CENTER MIN EXERCISES APPL 48852 [facility] MODALITY 6 CHIROPRAC CHIROPRAC 1/> AREAS TIC TIC TRACTION CENTER CENTER MECHANICA L CHIROPRAC 70659 [facility] TIC 6 CHIROPRAC MANIPULAT TIC BEN TX CENTER SPINAL 3-4 REGIONS CHIROPRAC 63807 [facility] TIC 6 CHIROPRAC MANIPLTV TIC TX CENTER EXTRASPIN AL 1/> REGION CHIROPRAC 30150 [facility] TIC 6 CHIROPRAC GAR MANIPLTV TIC TX CENTER EXTRASPIN AL 1/> REGION CHIROPRAC 42417 [facility] TIC 6 CHIROPRAC GAR MANIPULAT TIC BEN TX CENTER SPINAL 3-4 REGIONS APPL 26575 [facility] MODALITY 6 CHIROPRAC CHIROPRAC 1/> AREAS TIC TIC TRACTION CENTER CENTER MECHANICA L THERAPEUT 89440 [facility] IC PX 1/> 6 CHIROPRAC GAR AREAS TIC EACH 15 CENTER MIN EXERCISES THERAPEUT 97636 [facility] IC PX 1/> 6 CHIROPRAC GAR AREAS TIC EACH 15 CENTER MIN EXERCISES APPL 58277 [facility] MODALITY 6 CHIROPRAC CHIROPRAC 1/> AREAS TIC TIC TRACTION CENTER CENTER MECHANICA L CHIROPRAC 98980 [facility] TIC 6 CHIROPRAC GAR MANIPULAT TIC BEN TX CENTER SPINAL 3-4 REGIONS CHIROPRAC 30568 [facility] TIC 6 CHIROPRAC GAR MANIPLTV TIC TX CENTER EXTRASPIN AL 1/> REGION CHIROPRAC 60054 [facility] TIC 6 CHIROPRAC MANIPLTV TIC TX CENTER EXTRASPIN AL 1/> REGION CHIROPRAC 88563 [facility] BAÑUELOS TIC 6 CHIROPRAC MANIPULAT TIC BEN TX CENTER SPINAL 3-4 REGIONS THERAPEUT 06725 [facility] CA IC PX 1/> 6 CHIROPRAC CHIROPRAC AREAS TIC TIC EACH 15 CENTER CENTER MIN EXERCISES MANUAL 72720 COUNTS INCLUDE 234 [facility] THERAPY 6 CHIROPRAC TQS 1/> TIC REGIONS CENTER EACH 15 MINUTES MANUAL 19819 [facility] THERAPY 6 CHIROPRAC TQS 1/> TIC REGIONS CENTER EACH 15 MINUTES THERAPEUT 12945 [facility] CA IC PX 1/> 6 CHIROPRAC CHIROPRAC AREAS TIC TIC EACH 15 CENTER CENTER MIN EXERCISES CHIROPRAC 29716 [facility] BAÑUELOS TIC 6 CHIROPRAC MANIPULAT TIC BEN TX CENTER SPINAL 3-4 REGIONS CHIROPRAC 85656 [facility] BAÑUELOS TIC 6 CHIROPRAC MANIPLTV TIC TX CENTER EXTRASPIN AL 1/> REGION CHIROPRAC 53852 [facility] BAÑUELOS TIC 6 CHIROPRAC MANIPLTV TIC TX CENTER EXTRASPIN AL 1/> REGION CHIROPRAC 68139 [facility] BAÑUELOS TIC 6 CHIROPRAC MANIPULAT TIC BEN TX CENTER SPINAL 3-4 REGIONS THERAPEUT 06905 [facility] IC PX 1/> 6 CHIROPRAC CHIROPRAC AREAS TIC TIC EACH 15 CENTER CENTER MIN EXERCISES MANUAL 31517 [facility] THERAPY 6 CHIROPRAC TQS 1/> TIC REGIONS CENTER EACH 15 MINUTES MANUAL 34185 [facility] THERAPY 6 CHIROPRAC TQS 1/> TIC REGIONS CENTER EACH 15 MINUTES THERAPEUT 47164 [facility] IC PX 1/> 6 CHIROPRAC CHIROPRAC AREAS TIC TIC EACH 15 CENTER CENTER MIN EXERCISES CHIROPRAC 50459 [facility] BAÑUELOS TIC 6 CHIROPRAC MANIPULAT TIC BEN TX CENTER SPINAL 3-4 REGIONS CHIROPRAC 31438 COUNTS INCLUDE 234 [facility] TIC 6 CHIROPRAC MANIPLTV TIC TX CENTER EXTRASPIN AL 1/> REGION CHIROPRAC 21838 [facility] BAÑUELOS TIC 6 CHIROPRAC GAR MANIPLTV TIC TX CENTER EXTRASPIN AL 1/> REGION CHIROPRAC 22554 [facility] BAÑUELOS TIC 6 CHIROPRAC GAR MANIPULAT TIC BEN TX CENTER SPINAL 3-4 REGIONS THERAPEUT 56252 [facility] IC PX 1/> 6 CHIROPRAC CHIROPRAC AREAS TIC TIC EACH 15 CENTER CENTER MIN EXERCISES MANUAL 91590 COUNTS INCLUDE 234 [facility] THERAPY 6 CHIROPRAC GAR TQS 1/> TIC REGIONS CENTER EACH 15 MINUTES MANUAL [id number] COUNTS INCLUDE [facility] THERAPY 6 [facility]IROP[facility]AC TQS 1/> TIC [facility]IONS [facility] EACH 15 MINUTES TH[facility]APEUT 87797 [facility]/> 6 [facility] CHIROPRAC AREAS TIC TIC EACH 15 CENTER CENTER MIN EXERCISES CHIROPRAC 05168 [facility] BAÑUELOS TIC 6 CHIROPRAC MANIPLTV TIC TX CENTER EXTRASPIN AL 1/> REGION CHIROPRAC 46781 COUNTS INCLUDE [facility] TIC 6 [facility] MANIPULAT TIC [facility] SPINAL 1-2 REGIONS CHIROPRAC 12072 [facility] BAÑUELOS TIC 6 CHIROPRAC GAR MANIPLTV TIC TX CENTER EXTRASPIN AL 1/> REGION CHIROPRAC 05002 [facility] BAÑUELOS TIC 6 CHIROPR[facility] GAR MANIPULAT TIC [facility] SPINAL 3-4 REGIONS CHIROPRAC 68889 COUNTS INCLUDE 234 [facility] TIC 6 CHIROPRAC CHIROPRAC MANIPULAT TIC TIC [facility] CENTER SPINAL 3-4 REGIONS CHIROPRAC 06393 [facility] BAÑUELOS TIC 6 CHIROPRAC GAR MANIPLTV TIC TX CENTER EXTRASPIN AL 1/> REGION CHIROPRAC 29063 [facility] BAÑUELOS TIC 5 CHIROPRAC GAR MANIPULAT TIC [facility] SPINAL 1-2 REGIONS CHIROPRAC 06560 [facility] EDDA TIC 5 CHIROPR[facility] GAR MANIPULAT TIC [facility] SPINAL 1-2 REGIONS CHIROPRAC 12327 [facility] EDDA TIC 5 CHIROPRAC GAR MANIPLTV TIC TX CENTER EXTRASPIN AL 1/> [facility] TH[facility]APEUT 83811 [facility] IC PX 1/> 5 CHIROPRAC GAR AREAS TIC EACH 15 CENTER MIN EXERCISES THERAPEUT 73158 [facility] IC PX 1/> 5 [facility] GAR AREAS TIC EACH 15 CENTER MIN EXERCISES [facility]OP[facility]AC 60006 [facility] 5 CHIROPR[facility] CHIROPRAC MANIPLTV TIC T[facility] TX [facility] CENTER EXTRASPIN AL 1/> REGION CH[facility]OP[facility]AC 92616 [facility] 5 [facility] CHIROPR[facility] MANIPULAT TIC TIC [facility] C[facility] SPINAL 1-2 REGIONS [facility]RAC 38544 [facility] TIC 5 [facility] GAR MANIPULAT TIC [facility] SPINAL 3-4 REGIONS CHIROPRAC 87779 [facility] TIC 5 CHIROPRAC GAR MANIPLTV TIC TX CENTER EXTRASPIN AL 1/> REGION RADEX 53873 RADIOLOGY BRANDSER FOOT 5 SHEA COMPLETE ASSOCIATE MINIMUM 3 S OF NOTH VIEWS THERAPEUT 52977 [facility] IC PX 1/> 5 [facility] GAR AREAS TIC EACH 15 CENTER MIN EXERCISES CHIROP[facility]AC 47480 [facility] TIC 5 CHIROPRAC GAR MANIPLTV TIC TX CENTER EXTRASPIN AL 1/> REGION CHIROPRAC 47468 [facility] 5 [facility] CH[facility] MANIPULAT TIC [facility] C[facility] SPINAL 1-2 REGIONS [facility]IROPRAC 36499 [facility] TIC 5 [facility] GAR MANIPULAT TIC [facility] SPINAL 1-2 REGIONS CHIROPRAC 77419 [facility] TIC 5 CHIROPRAC GAR MANIPLTV TIC TX CENTER EXTRASPIN AL 1/> REGION THERAPEUT 88958 [facility] IC PX 1/> 5 [facility] GAR AREAS TIC EACH 15 CENTER MIN EXERCISES THERAPEUT 71067 [facility] IC PX 1/> 5 [facility] GAR AREAS TIC EACH 15 CENTER MIN EXERCISES [facility]IROPRAC 62566 [facility] TIC 5 CHIROPR[facility] GAR MANIPLTV TIC TX CENTER EXTRASPIN AL 1/> [facility]AC 57589 [facility] 5 [facility] CH[facility] MANIPULAT TIC [facility] C[facility] SPINAL 1-2 REGIONS CHIROPRAC 21721 [facility] TIC 5 CH[facility]OPR[facility] CHIROPR[facility] MANIPULAT TIC [facility] C[facility] SPINAL 1-2 [facility]IONS [facility]AC 53936 [facility] 5 [facility] CHIROPRAC MANIPLTV TIC [facility] TX [facility] CENTER EXTRASPIN AL 1/> REGION THERAPEUT 51553 [facility] IC PX 1/> 5 [facility] GAR AREAS TIC EACH 15 CENTER MIN EXERCISES CHIROPRAC 64178 [facility] T[facility] 5 [facility] CH[facility]OPR[facility] MANIPULAT TIC [facility] SPINAL 1-2 REGIONS [facility]AC 31801 [facility] 5 [facility] CHIROPRAC MANIPLTV TIC [facility] TX [facility] CENTER EXTRASPIN AL 1/> REGION CHIROPRAC 61094 [facility] TIC 5 CHIROPRAC GAR MANIPLTV TIC TX CENTER EXTRASPIN AL 1/> REGION CHIROPRAC 47013 [facility] TIC 5 [facility] GAR MANIPULAT TIC [facility] SPINAL 1-2 REGIONS CHIROPRAC 48015 [facility] TIC 5 [facility] GAR MANIPULAT TIC [facility] SPINAL 1-2 REGIONS CHIROPRAC 11996 [facility] TIC 5 CHIROPR[facility] GAR MANIPLTV TIC TX CENTER EXTRASPIN AL 1/> REGION CHIROPRAC 39779 [facility] TIC 5 [facility] GAR MANIPULAT TIC [facility] SPINAL 1-2 REGIONS CHIROPRAC 83248 [facility] TIC 5 CHIROPR[facility] GAR MANIPLTV TIC TX CENTER EXTRASPIN AL 1/> REGION CH[facility]OPRAC 42338 [facility] TIC 5 CH[facility]OPR[facility] GAR MANIPLTV TIC TX CENTER EXTRASPIN AL 1/> REGION CHIROPRAC 39170 [facility] TIC 5 CHIROPRAC GAR MANIPULAT TIC [facility] [place] [facility] SPINAL 1-2 REGIONS THERAPEUT 63668 LANNY BAÑUELOS IC PX 1/> 5 CHIROPRAC GAR AREAS TIC EACH 15 CENTER MIN EXERCISES THERAPEUT 54622 LANNY BAÑUELOS IC PX 1/> 5 CHIROPRAC GAR AREAS TIC EACH 15 CENTER MIN EXERCISES CHIROPRAC 56532 LANNY BAÑUELOS TIC 5 CHIROPRAC GAR MANIPLTV TIC TX CENTER EXTRASPIN AL 1/> REGION CHIROPRAC 04764 LANNY BAÑUELOS TIC 5 CHIROPRAC GAR MANIPULAT TIC [facility] [place] [facility]ENTER SPINAL 1-2 REGIONS CHIROPRAC 75241 LANNY BAÑUELOS TIC 5 CHIROPRAC GAR MANIPLTV TIC TX CENTER EXTRASPIN AL 1/> REGION CHIROPRAC 88610 LANNY BAÑUELOS TIC 5 CHIROPRAC GAR MANIPULAT TIC [facility] [place] [facility] SPINAL 1-2 REGIONS THERAPEUT 35829 LANNY BAÑUELOS IC PX 1/> 5 CHIROPRAC GAR AREAS TIC EACH 15 CENTER MIN EXERCISES THERAPEUT 62817 LANNY BAÑUELOS IC PX 1/> 5 CHIROPRAC GAR AREAS TIC EACH 15 CENTER MIN EXERCISES CHIROPRAC 30737 LANNY BAÑUELOS TIC 5 CHIROPRAC GAR MANIPULAT TIC [facility] [place] CENTER SPINAL 1-2 REGIONS CHIROPRAC 13041 LANNY BAÑUELOS TIC 5 CHIROPRAC GAR MANIPLTV TIC TX CENTER EXTRASPIN AL 1/> REGION CHIROPRAC 34803 LANNY BAÑUELOS TIC 5 CHIROPRAC GAR MANIPLTV TIC TX CENTER EXTRASPIN AL 1/> REGION CHIROPRAC 23536 LANNY BAÑUELOS TIC 5 CHIROPRAC GAR MANIPULAT TIC [facility] [place] [facility]ENTER SPINAL 1-2 REGIONS CHIROPRAC 58164 LANNY HULLMARIORAY TIC 5 CHIROPRAC CHIROPRAC MANIPULAT TIC TIC [facility] CENTER SPINAL 1-2 REGIONS CHIROPRAC 65556 KURTISNAYANA BAÑUELOS TIC 5 CHIROPRAC GAR MANIPLTV TIC TX CENTER EXTRASPIN AL 1/> REGION CHIROPRAC 37661 LANNY BAÑUELOS TIC 5 CHIROPRAC GAR MANIPULAT TIC [facility] [place] [facility] SPINAL 3-4 REGIONS CHIROPRAC 26863 LANNY BAÑUELOS TIC 5 CHIROPRAC GAR MANIPULAT TIC [facility] [place] [facility] SPINAL 1-2 REGIONS CHIROPRAC 16613 LANNY BAÑUELOS TIC 5 CHIROPRAC GAR MANIPULAT TIC [facility] [place] [facility] SPINAL 1-2 REGIONS CRTCHS E0114 ADVANCED ADVANCED UNDARM 5 TECHNOLOG TECHNOLOG OTH THAN IES INC IES INC WOOD PAIR PAD TIP&HNDGR IP RADEX 99288 [facility] [place] [facility] [place] KIMBERLEY FOOT 5 MEDICAL COMPLETE IMAGING MINIMUM 3 ASS VIEWS CHIROPRAC 08986 LANNY BAÑUELOS TIC 5 CHIROPRAC GAR MANIPULAT TIC [facility] SPINAL 1-[address] [place] [address] LUI FINLEY HEAD/BRAI 5 NAL N W/O RADIOLOGY CONTRAST INC. MATERIAL RADIOLOGI 99578 LUI JOSEPH C 5 NAL ADA EXAMINATI RADIOLOGY ON CHEST INC. SINGLE VIEW FRONTAL ANESTHESI 90880 [place] A 5 MEDICAL ZOH INTRACRAN SERVICES IAL VASCULAR PROCEDURE UNLISTED 49911 [place] PROCEDURE 5 MEDICAL JUS NERVOUS SERV SYSTEM FOUNDATIO N MICROSURG 01620 [place] TQS REQ 5 MEDICAL JUS USE SERV OPERATING FOUNDATIO N MICROSCOP E ARTL 32693 [place] CATHJ/CAN 5 MEDICAL ZOH NULJ SERVICES MNTR/GERMAN SFUSION SPX PRQ INITIAL 60095 [place] MANCIA INPATIENT 5 MEDICAL L CONSULT SERV NEW/ESTAB FOUNDATIO PT 80 N MIN CHIROPRAC 76960 COLE COLE TIC 5 COL COL MANIPULAT BEN [place] SPINAL 1-2 REGIONS APPL 19370 COLE COLE MODALITY 5 COL COL 1/> AREAS ELEC STIMJ UNATTENDE D APPL 56352 CO[place] COLE MODALITY 5 COL COL 1/> AREAS TRACTION MECHANICA L ECG 44096 [place] CHI ROUTINE 5 MEDICAL ECG SERV W/LEAST FOUNDATIO 12 LDS N I&R ONLY ANKLE L1930 PATIENT PATIENT FOOT 5 AIDS INC AIDS INC ORTHOTIC PLASTIC/O TH [facility] 30527 [facility] 5 MEDICAL SHEA DAY SERV MANAGEMEN FOUNDATIO T 30 N MIN/< CANE E0105 PATIENT PATIENT QUAD/3-MA 5 AIDS INC AIDS INC JACIEL ALL MATL ADJUSTBL/ FIX W/TIPS SBSQ 77124 [place] [address] MEDICAL NAN CARE/DAY SERV 25 FOUNDATIO MINUTES N SBSQ 22603 [place] [address] MEDICAL SHEA CARE/DAY SERV 35 FOUNDATIO MINUTES N SBSQ 27833 [place] [address] MEDICAL SARAH CARE/DAY SERV 25 FOUNDATIO MINUTES N SBSQ 74513 [place] [address] MEDICAL SARAH CARE/DAY SERV 25 FOUNDATIO MINUTES N SBSQ 14958 [place] [address] MEDICAL SARAH CARE/DAY SERV 25 FOUNDATIO MINUTES N SBSQ 84998 [place] [address] MEDICAL SHEA CARE/DAY SERV 25 FOUNDATIO MINUTES N SBSQ 73792 [place] [address] MEDICAL SHEA CARE/DAY SERV 25 FOUNDATIO MINUTES N RADIOLOGI 69306 CNTR[facility] [place] [address] RADIOLOGY III ROMARIO EXAMINATI ON CHEST SING[facility] [address] [place] [address] MEDICAL JOHN DAY SERV MANAGEMEN FOUNDATIO T 30 N MIN/< INITIAL 02752 [place] [address] MEDICAL SHEA CARE/DAY SERV 70 FOUNDATIO MINUTES N SBSQ 94375 [place] [address] MEDICAL JOHN CARE/DAY SERV 25 FOUNDATIO MINUTES N SBSQ 32583 [facility] 5 MEDICAL CARE/DAY SERV 35 FOUNDATIO MINUTES N SLCTV 60230 [facility] 5 MEDICAL ABD VERTEBRAL SERV ART FOUNDATIO ANGIO N VERTEBRAL ARTERY SLCTV 37106 [facility] 5 MEDICAL ABD XTRNL SERV CAROTID FOUNDATIO ANGIO N XTRNL CAROTD CIRC SLCTV 85674 [place] [facility]HAJER[facility] CATH 5 MEDICAL ABD CAROTID/I SERV NNOM ART FOUNDATIO ANGIO N INTRCRANL ART SLCTV 37858 [place] CATH 5 MEDICAL ABD INTRNL SERV CAROTID [place] [address] [place] RASLAU ANGIOGRAP 5 MEDICAL FLA HY NECK SERV W/CONTRAS FOUNDATIO T/NONCONT N RAST HEMOGLOBI 97206 UNIVERSIT ERICKA N 5 Y OF EDER FRACTJ/QU [facility] [address] [place] RASLAU HEAD/BRAI 5 MEDICAL FLA N W/O SERV CONTRAST FOUNDATIO MATERIAL N MRI BRAIN 25100 [place] ESCOTT BRAIN 5 MEDICAL EDW STEM W/O SERV W/CONTRAS FOUNDATIO T N MATERIAL RADIOLOGI 07066 [place] KOL[place] C 5 MEDICAL EITAN EXAMINATI SERV ON CHEST [place] [address] [place] SETH KWA ANGIOGRAP 5 MEDICAL HY HEAD SERV W/CONTRAS FOUNDATIO T/NONCONT N RAST GROUND A0425 [facility] MILEAGE 5 Ada-ISHAN WHITMORE PER CO EMS CO EMS STATUTE MILE AMB A0427 [facility] SERVICE 5 Ada-ISAHN WHITMORE ALS CO EMS CO EMS EMERGENCY TRANSPORT LEVEL 1 ECG 09908 [place] CHI ROUTINE 5 MEDICAL ECG SERV W/LEAST FOUNDATIO 12 LDS N I&R ONLY APPL 52016 COLE GALVAN MODALITY 5 COL COL 1/> AREAS ELEC STIMJ UNATTENDE D APPL 30408 COLE GALVAN MODALITY 5 COL COL 1/> AREAS TRACTION MECHANICA L CHIROPRAC 39063 COLE GALVAN TIC 5 COL COL MANIPULAT BEN TX SPINAL 3-4 REGIONS CHIROPRAC 80936 COLE GALVAN TIC 5 COL COL MANIPLTV TX EXTRASPIN AL 1/> REGION RADEX 80621 COLE GALVAN SPINE 5 COL COL LUMBOSACR AL 2/[address] [place] [address] [facility] [place] SCALF JOHN ABDOMEN & 4 RADIOLOGY PELVIS W/O CONTRAST MATERIAL BLOOD 54353 [facility] PERIPHERA L INTERP PHYS W/WRIT REPORT ECG 82771 [place] BAY[place]E CHI ROUTINE 4 MEDICAL ECG SERV W/LEAST FOUNDATIO 12 LDS N I&R ONLY AMB A0427 BOB BOB SERVICE 4 CO CO ALS AMBULANCE AMBULANCE EMERGENCY TAXIN TAXIN TRANSPORT LEVEL 1 GROUND A0425 BOB BBO MILEAGE 4 CO CO PER AMBULANCE [place] [address] THALIA COLLIERUTCHER HEAD/BRAI 4 MEDICAL ROYER N W/O IMAGING CONTRAST ASS MATERIAL CHIROPRA 40612 ROSEMARIE [place]ST[place] TIC 4 DONNA DONNA MANIPULAT [place]EN [place] SPINAL 3-[place] [address] ROSEMARIE HOUSTON 1/> AREAS 4 DONNA DONNA EACH 15 MINUTES [facility] [address] [facility] 4 [facility] MEDICINE MANAGEMEN UFPA T 30 MIN/< INITIAL 93226 [facility] NAHUM INPATIENT 4 Medicine JR. KIMBERLEY CONSULT NEW/ESTAB PT 55 MIN INITIAL 62130 [facility] SHAINA INPATIENT 4 Medicine DAM SRI CONSULT NEW/ESTAB PT 80 MIN INITIAL [address] MEDICINE [address] [place] [address] MADHU DIXON ABDOMEN & 4 Radiologi LUCIANO PELVIS stacey W/O Associate CONTRAST s MATERIAL RADIOLOGI 35554 MADHU DIXON C EXAM 4 Radiologi LUCIANO CHEST 2 stacey VIEWS Associate FRONTAL&[place] [address] ROSEMARIE HOUSTON 1/> AREAS 4 DONNA DONNA EACH 15 [facility]ES [facility] ROSEMARIE [place] TIC 4 DONNA DONNA MANIPULAT BEN [place] SPINAL 3-4 REGIONS CHIROPRAC 60505 [facility]SEM[facility] [place] TIC 4 DONNA DONNA MANIPULAT [place]EN [place] SPINAL 3-4 REGIONS CHIROPRAC 10396 ROSEMARIE [place] TIC 4 DONNA DONNA MANIPULAT BEN [place] SPINAL 3-4 REGIONS THERAPEUT 48091 ROSEMARIE HOUSTON IC PX 1/> 4 DONNA DONNA AREAS EACH 15 MIN [facility] 65622 [facility] DISCHARGE 4 EDW EDW DAY MANAGEMEN T 30 MIN/< SBSQ 38316 [facility] 4 EDW EDW CARE/DAY 25 MINUTES SBSQ 11718 [facility] 4 EDW EDW CARE/DAY 25 MINUTES INITIAL 97615 [facility] 4 EDW EDW CARE/DAY 50 MINUTES AMBULANCE A0429 BOB BOB SERVICE 4 CO CO BLS AMBULANCE AMBULANCE EMERGENCY TAXIN TAXIN TRANSPORT GROUND A0425 BOB BOB MILEAGE 4 CO CO PER AMBULANCE AMBULANCE STATUTE TAXIN TAXIN MILE ECG 13960 BROCK BROCK ROUTINE 4 GAR GAR ECG W/LEAST 12 LDS I&R ONLY CHIROPRAC 33028 ROSEMARIE [place] TIC 4 DONNA DONNA MANIPULAT BEN [place] SPINAL 3-[place] [address] ROSEMARIE HOUSTON 1/> AREAS 4 DONNA DONNA EACH 15 MIN NEUROMUSC REEDUCA RADEX [address] ANKLE 4 WILSON WILSON COMPLETE FT FT MINIMUM 3 DIVYA DIVYA VIEWS OBSERVATI 06934 [facility] CARE 3 LUZ ELENA HUG DISCHARGE PHYSICIAN SERVI MANAGEMEN T SBSQ 17245 [facility] OBSERVATI 3 LUZ ELENA HUG ON PHYSICIAN CARE/DAY SERVI 25 MINUTES INITIAL 21769 [facility] YRN OBSERVATI 3 LUZ ELENA HUG ON PHYSICIAN CARE/DAY SERVI 50 MINUTES CRITICAL 35468 CELLAROSI CELLAROSI CARE 3 - YORBA - YORBA ILL/INJUR PAT PAT ED PATIENT INIT 30-74 MIN ECG 85062 CELLAROSI CELLAROSI ROUTINE 3 - YORBA - YORBA ECG PAT PAT W/LEAST 12 LDS [place] [address] CEE CEE RETROPERI 3 RHO RHO TONEAL REAL TIME W/IMAGE LIMITED ECG 80659 OZOR MAR OZOR MAR ROUTINE 3 ECG W/LEAST 12 LDS I&R ONLY ECG 45340 MARCO LARA ROUTINE 3 RYA RYA ECG W/LEAST 12 LDS I&R ONLY CT THORAX 04294 CARLINE MENSAH 3 W/[place] [address] [facility] INFUSION [address] [place] [address] THERAPY MEDICAL MEDICAL PROPHYLAX C C IS/DX EA HOUR INJECTION J1200 [address] DIPHENHYD MEDICAL MEDICAL RAMINE C C HCL UP TO 50 MG INFUSION J7030 [facility] NORMAL [address] [place] [address] SALINE MEDICAL MEDICAL SOLUTION C C 1000 CC INJ J1557 [facility] IMMUNE [address] [place] [address] GLOBULIN MEDICAL MEDICAL IV C C NONLYOPHI LIZED 500 [place] [address] [facility] INFUSION [address] [place] [address] THER MEDICAL MEDICAL PROPH C C ADDL SEQUENTIA L TO 1 HR INJ J1720 [facility] HYDROCORT [address] [place] [address] ISONE MEDICAL MEDICAL SODIUM C C SUCCINATE TO 100 MG CALCIUM 17589 [facility] IONIZED [address] [place] [address] MEDICAL MEDICAL C C BASIC 90151 [facility] METABOLIC [address] [place] [address] PANEL MEDICAL [place] [address] [facility] INFUSION [address] [place] [address] THERAPY/P MEDICAL MEDICAL ROPHYLAXI C C S /DX 1ST TO 1 [place] [address] [facility] GAMMAGLOB [address] [place] [address] ULIN IGA MEDICAL MEDICAL IGD IGG C C IGM EACH BLOOD 96628 [facility] COUNT [address] [place] [address] COMPLETE MEDICAL MEDICAL AUTO&AUTO C C DIFRNTL WBC BLOOD 68339 [facility] COUNT 3 N N COMPLETE COMMUNITY COMMUNITY AUTOMATED HOSPITA HOSPITA THERAPEUT 91652 [facility] IC 3 N N INJECTION COMMUNITY COMMUNITY IV PUSH HOSPITA [place] [address] [facility] AMYLASE 3 N N COMMUNITY COMMUNITY HOSPITA HOSPITA COMPREHEN 07302 [facility] SIVE 3 N N METABOLIC COMMUNITY COMMUNITY [place] [address] [facility] LIPASE 3 N N [facility] HOSPITA HOSPITA BLOOD 31692 [facility] COUNT 3 N N SMEAR [facility] MCRSCP HOSPITA HOSPITA W/[place] [address] [facility] INFUSION 3 N N HYDRATION [facility] EACH HOSPITA HOSPITA ADDITIONA L HOUR INJECTION J2405 [facility] 3 N N ONDANSETR [facility] ON HCL HOSPITA HOSPITA PER 1 MG COLLECTIO 65870 [facility] N VENOUS 3 N N BLOOD [facility] VENIPUNCT HOSPITA HOSPITA URE THER 08718 [facility] PROPH/DX 3 N N NJX IV [facility] PUSH HOSPITA HOSPITA SINGLE/1S T SBST/DRUG URINE 22253 [facility] 3 N N TEST [facility] VISUAL HOSPITA [place] [address] [facility] MAXILLOFA 3 N N CIAL W/O [facility] CONTRAST HOSPITA HOSPITA MATERIAL RADEX 59879 [facility] J[facility] CROWLEY JAM NASAL 3 BONES COMPLETE MINIMUM 3 VIEWS GROUND A0425 [facility] MILEAGE 3 NVERONIKA WHITMORE PER CA EMS CO EMS STATUTE MILE AMBULANCE A0429 [facility] SERVICE 3 N-ISHAN WHITMORE BLS CO EMS CO EMS EMERGENCY TRANSPORT GROUND A0425 [facility] MILEAGE 3 N SCOT T N SCOT T PER CO EMS CO EMS STATUTE MILE CRITICAL [address] ILL/INJUR MEDICAL MEDICAL ED C C PATIENT INIT 30-74 MIN INITIAL 89936 POLA BRIANDA MEÑO INPATIENT 3 HOSP MED CONSULT CTR NEW/ESTAB PT 110 MIN GONADOTRO [address] [facility] [place] [place] [address] THYRO[place] [address] [facility] THYROID [address] [place] [address] STIMULATI MEDICAL MEDICAL NG C C HORMONE TSH CREATININ 23919 [facility] E OTHER 3 [facility] HOSPITAL SOURCE MEDICAL MEDICAL C C GLUCOSE 28768 [facility] BLOOD [address] [place] [address] REAGENT MEDICAL MEDICAL STRIP C C INJECTION J0[address] CEFTRIAXO MEDICAL MEDICAL NE SODIUM C C PER 250 MG THERAPEUT 64446 [facility] IC 3 N N INJECTION COMMUNITY COMMUNITY IV PUSH HOSPITA HOSPITA EACH NEW DRUG CULTURE 63443 [facility] BACTERIAL [address] [place] [address] MEDICAL MEDICAL QUANTTATI C C VE COLONY COUNT URINE GONADOTRO 34370 [facility] PIN [address] [place] [address] LUTEINIZI MEDICAL MEDICAL NG C C HORMONE CALCIUM 22070 [facility] IONIZED [address] [place] [address] MEDICAL MEDICAL C C PROCALCIT 51313 [facility] ONIN [address] [place] [address] (PCT) [place] [address] [facility] ESTROGENS [address] [place] [address] TOTAL MEDICAL MEDICAL C C GONADOTRO 05750 [facility] PIN [address] [place] [address] FOLLICLE MEDICAL MEDICAL STIMULATI C C NG HORMONE URNLS DIP [address] STICK/TAB MEDICAL MEDICAL LET RGNT C C AUTO W/O MICROSCOP Y CULTURE 03379 [facility] BACTERIAL [address] [place] [address] BLOOD MEDICAL MEDICAL AEROBIC C C W/[place] [address] [facility] RENIN [address] [place] [address] MEDICAL MEDICAL C C INJECTION J2405 [facility] 3 N N ONDANSETR COMMUNITY COMMUNITY ON HCL HOSPITA HOSPITA PER 1 [place] [address] [facility] INFUSION 3 N N HYDRATION COMMUNITY COMMUNITY EACH HOSPITA HOSPITA ADDITIONA L HOUR THER 93622 [facility] PROPH/DX 3 N N NJX IV COMMUNITY COMMUNITY PUSH HOSPITA HOSPITA SINGLE/1S T SBST/DRUG COMPREHEN 98891 [facility] SIVE 3 N N METABOLIC COMMUNITY COMMUNITY PANEL HOSPITA HOSPITA BLOOD 18139 [facility] COUNT 3 N N COMPLETE [facility] COMMUNITY AUTO&AUTO HOSPITA HOSPITA DIFRNTL WBC BLOOD 48548 [facility] COUNT [address] [place] [address] COMPLETE MEDICAL MEDICAL AUTO&AUTO C C DIFRNTL WBC HEPATIC 22381 [facility] FUNCTION [address] [place] [address] [place] [address] [facility] GAMMAGLOB [address] [place] [address] [place]ICAL [place] [address] [facility] INFUSION [address] [place] [address] HOSPITAL THERAPY/P MEDICAL MEDICAL ROPHYLAXI C C S /DX 1ST TO 1 [place] [address] [facility]FUSION [address] [place] [address] HOSPITAL THERAPY MEDICAL MEDICAL PROPHYLAX C C IS/DX EA HOUR INJECTION J1561 [facility]DRENS IMMUNE [address] [place] [address] GLOBULIN MEDICAL MEDICAL NONLYOPHI C C LIZED 500 [place] [address] [facility] PHOSPHORU [address] [place] [address] S MEDICAL [place] [address] [facility] MAGNESIUM [address] [place] [address] MEDICAL MEDICAL C C BASIC 36880 [facility] METABOLIC [address] [place] [address] PANEL MEDICAL MEDICAL CALCIUM C C TOTAL BASIC 63344 [facility] METABOLIC [address] [place] [address] PANEL MEDICAL [place] [address] [facility] MAGNESIUM [address] [place] [address] [place] [address] [facility] PHOSPHORU [address] [place] [address] [place] [address] [facility] INFUSION [address] [place] [address] HOSPITAL THERAPY MEDICAL MEDICAL PROPHYLAX C C IS/DX EA HOUR INJ IG J1569 [facility] GAMMAGARD [address] [place] [address] LIQ IV MEDICAL MEDICAL NONLYOPHI C C LIZED 500 [place] [address] [facility] INFUSION [address] [place] [address] HOSPITAL THERAPY/P MEDICAL MEDICAL ROPHYLAXI C C S /DX 1ST TO 1 [place] [address] [facility] [place]AMMAGLOB [address] [place] [address] MEDICAL IGD IGG C C IGM EACH HEPATIC 74382 [facility] FUNCTION [address] [place] [address] PANEL MEDICAL MEDICAL C C BLOOD 67212 [facility] COUNT [address] [place] [address] COMPLETE MEDICAL MEDICAL AUTO&AUTO C C DIFRNTL WBC BLOOD 43478 [facility] COUNT [address] [place] [address] HOSPITAL COMPLETE MEDICAL MEDICAL AUTO&AUTO C C DIFRNTL WBC HEPATIC 73790 [facility] FUNCTION 3 [facility] [place] [address] [facility] GAMMAGLOB [address] [place] [address] ULIN IGA MEDICAL MEDICAL [place] [address] [facility]PITAL HOSPITAL THERAPY/P MEDICAL MEDICAL ROPHYLAXI C C S /DX 1ST TO 1 [place] [address] [facility] HOSPITAL THERAPY MEDICAL MEDICAL PROPHYLAX [place] [address] [facility] MAGNESIUM [address] [place] [address] MEDICAL MEDICAL C C CALCIUM 30602 [facility] IONIZED [address] [place] [address] [place] [address] [facility] PHOSPHORU [address] [place] [address] S MEDICAL MEDICAL INORGANIC C C COLLECTIO 04668 [facility] N VENOUS [address] [place] [address] BLOOD MEDICAL MEDICAL VENIPUNCT C C URE BASIC 22931 [facility] METABOLIC [address] [place] [address] PANEL MEDICAL MEDICAL CALCIUM C C TOTAL RADIOLOGI 51920 RADIOLOGY DONG C EXAM 3 MEENU CHEST 2 ASSOCIATE VIEWS S OF NOTH FRONTAL&L ATERAL BASIC 80195 [facility] CHILDRENS METABOLIC [address] [place] [address] PANEL MEDICAL [place] [address] [facility] PHOSPHORU [address] [place] [address] S MEDICAL [place] [address] [facility] MAGNESIUM [address] [place] [address] [place] [address] [facility] INF[facility]ION [address] [place] [address] HOSPITAL THERAPY MEDICAL MEDICAL PROPHYLAX C C IS/DX EA HOUR CALCIUM 98028 [facility] IONIZED [address] [place] [address] MEDICAL MEDICAL C C INJ IG J1569 [facility] GAMMAGARD [address] [place] [address] LIQ IV MEDICAL MEDICAL NONLYOPHI C C LIZED 500 [place] [address] [facility]ITAL HOSPITAL THERAPY/P MEDICAL MEDICAL ROPHYLAXI C C S /DX 1ST TO [place] [address] [facility]AMMAGLOB [address] [place] [address] ULIN IGA MEDICAL MEDICAL IGD IGG C C IGM EACH HEPATIC 99257 [facility] FUNCTION [address] [place] [address] PANEL MEDICAL MEDICAL C C BLOOD 58472 [facility] COUNT [address] [place] [address] COMPLETE MEDICAL MEDICAL AUTO&AUTO C C DIFRNTL WBC [facility] [address] [facility] 3 Y OF ALONZO DAY [place] MANAGEMEN I PHY T 30 MIN/< SBSQ 39620 [facility] 3 Y OF ALONZO CARE/DAY [place] 25 I PHY MINUTES SBSQ 03450 [facility] 3 Y OF ALONZO CARE/DAY [place] 25 I PHY MINUTES SBSQ 96951 [facility] 3 Y OF ALONZO CARE/DAY [place] 25 I PHY MINUTES DXA BONE 37479 [facility] 3 Y OF BRU STUDY 1/> [place] SITES I PHY AXIAL SKEL SBSQ 16747 [facility] 3 Y OF ALONZO CARE/DAY [place] 35 I PHY MINUTES SBSQ 86145 [facility] 3 Y OF ALONZO CARE/DAY [place] 25 I PHY MINUTES INITIAL 28600 [facility] INPATIENT 3 Y OF TORSTEN CONSULT [facility] I PHY PT 110 MIN RADIOLOGI 25363 [facility] EXAM 3 Y OF MEENU CHEST 2 [facility] VIEWS I PHY FRONTAL&L ATERAL INITIAL 51390 [facility] 3 Y OF ALONZO CARE/DAY [place] 70 I PHY MINUTES ORTHOTIC 65989 [facility] MGMT&GILBERT [address] [place] [address] [place] UXTR MEDICAL MEDICAL LXTR&/TRN C C K EA 15 THERAPEUT 20543 [facility] IC PX 1/> [address] [place] [address] AREAS MEDICAL MEDICAL EACH 15 C C MIN EXERCISES INJECTION [id number] [facility] CALCIUM [address] [place] [address] GLUCONATE MEDICAL MEDICAL PER 10 C C ML 5% [id number] [facility] DEXTROSE/ [address] [place] [address] [facility] C THER 32024 [facility] PROPH/DX [address] [place] [address] NJX IV MEDICAL MEDICAL PUSH C C SINGLE/1S T SBST/DRUG CALCIUM 15304 [facility] IONIZED [address] [place] [address] [place] [address] [facility] MAGNESIUM [address] [place] [address] MEDICAL MEDICAL C C NONINVASI 23196 [facility] VE [address] [place] [address] EAR/PULSE MEDICAL MEDICAL OXIMETRY C C MULTIPLE DETER THERAPEUT 89379 [facility] ACTVITY [address] [place] [address] DIRECT PT MEDICAL MEDICAL CONTACT C C EACH 15 MIN HEPATIC 03616 [facility] FUNCTION [address] [place] [address] PANEL MEDICAL MEDICAL C C RENAL 35921 [facility] FUNCTION [address] [place] [address] PANEL MEDICAL MEDICAL C C GROUND [id number] [facility] 3 [facility] [place] [place] [address] [facility] INFUSION [address] [place] [address] THERAPY/P MEDICAL MEDICAL ROPHYLAXI C C S /DX 1ST TO 1 [place] [address] [facility] GAMMAGLOB [address] [place] [address] [facility] MEDICAL IGD IGG C C IGM EACH COLLECTIO 31367 [facility] N VENOUS [address] [place] [address] BLOOD MEDICAL [place]ICAL [place] [address] [facility] PHOSPHORU [address] [place] [address] [place] [address] [facility] MAGNESIUM [address] [place] [address] MEDICAL MEDICAL C C CALCIUM 00640 [facility] CH[facility] IONIZED [address] [place] [address] MEDICAL MEDICAL C C INJ IG J1569 [facility] GAMMAGARD [address] [place] [address] LIQ IV MEDICAL MEDICAL NONLYOPHI C C LIZED 500 [place] [address] [facility] INFUSION [address] [place] [address] THERAPY MEDICAL MEDICAL PROPHYLAX C C IS/DX EA HOUR PHYSICAL 86746 [facility] THERAPY [address] [place] [address] EVAL[facility]IO [facility]ICAL MEDICAL N C C BASIC 60796 [facility] METABOLIC [address] [place] [address] PANEL MEDICAL MEDICAL CALCIUM C C TOTAL BASIC 75118 [facility] METABOLIC 2 [facility] PANEL MEDICAL [place] [address] [facility] CH[facility] PHOSPHORU 2 [facility] S MEDICAL MEDICAL INORGANIC C C RHEUMATOI 72417 [facility] CH[facility] D FACTOR 2 [facility] QUANTITAT MEDICAL MEDICAL BEN C C RADIOLOGI 50779 [facility] C 2 HOSP MED Y ARI EXAMINATI CTR ON KNEE 1/2 [place] [address] [facility] INFUSION 2 [facility] THERAPY MEDICAL MEDICAL PROPHYLAX C C IS/DX EA HOUR INJ IG J1569 [facility] GAMMAGARD [address] [place] [address] LIQ IV MEDICAL MEDICAL NONLYOPHI C C LIZED 500 MG RADEX 79573 [facility] HAND 2 2 HOSP MED Y ARI VIEWS CTR CYCLIC 05938 [facility] CITRULLIN [address] [place] [address] ATED MEDICAL MEDICAL PEPTIDE C C ANTIBODY EXTRACTAB 51741 [facility] LE [address] [place] [address] NUCLEAR MEDICAL MEDICAL ANTIGEN C C ANTIBODY ANY METHOD SEDIMENTA 32498 [facility] TION RATE 2 [facility] RBC [place]ICAL [place] [address] [facility] CH[facility] MAGNESIUM 2 [facility] MEDICAL MEDICAL C C CALCIUM 22782 [facility] CH[facility]DRENS IONIZED 2 [facility] MEDICAL MEDICAL C C C-REACTIV 05376 [facility] CHILDRENS E PROTEIN 2 [facility] MEDICAL MEDICAL C C RADEX 18599 CHILDRENS PODBERESK SPINE 2 HOSP MED Y ARI LUMBOSACR CTR AL 2/3 [place] [address] [facility] GAMMAGLOB [address] [place] [address] ULIN IGA MEDICAL MEDICAL [place] [address] [facility]ILDREN CHILDREN INFUSION 2 [facility] THERAPY/P MEDICAL MEDICAL ROPHYLAXI C C S /DX 1ST TO 1 HR HEPATIC 87434 [facility]ILDREN FUNCTION 2 [facility] PANEL MEDICAL MEDICAL C C BLOOD 83514 [facility] COUNT [address] [place] [address] COMPLETE MEDICAL MEDICAL AUTO&AUTO C C DIFRNTL WBC BLOOD 39693 [facility] CHILDRENS COUNT [address] [place] [address] COMPLETE MEDICAL MEDICAL AUTO&AUTO C C DIFRNTL WBC HEPATIC 65976 [facility] FUNCTION [address] [place] [address] [place] [address] [facility] INFUSION [address] [place] [address] THERAPY/P MEDICAL MEDICAL ROPHYLAXI C C S /DX 1ST TO 1 [place] [address] [facility] MEDICAL IGD [place] [address] [facility] PHOSPHORU [address] [place] [address] [facility] MEDICAL INORGANIC C C CALCIUM 92720 [facility] IONIZED [address] [place] [address] [place] [address] [facility] MAGNESIUM [address] [place] [address] MEDICAL MEDICAL C C INJ IG [id number] [address] LIQ IV MEDICAL MEDICAL NONLYOPHI C C LIZED 500 [place] [address] THERAPY MEDICAL MEDICAL PROPHYLAX C C IS/DX EA HOUR BASIC 51211 [facility] METABOLIC [address] [place] [address] PANEL MEDICAL MEDICAL CALCIUM C C TOTAL URINE 93905 PENDELETO PENDELETO 2 N CO N CO TEST Shout [facility] VISUAL CENTER CENTER COLOR CMPRSN METHS CYTP 71653 PATHOLOGY PICKLESIM CERV/VAG 2 & ER JR ERICA AUTO THIN CYTOLOGY [place] [address] THERAPY MEDICAL MEDICAL PROPHYLAX C C IS/DX EA HOUR INJ IG [id number] [address] LIQ IV MEDICAL MEDICAL NONLYOPHI C C LIZED 500 MG 5% J7060 [facility] DEXTROSE/ 2 [facility] [place] [address] [facility] MAGNESIUM [address] [place] [address] MEDICAL MEDICAL C C BASIC [address] PANEL MEDICAL [place] [address] S MEDICAL [place] [address] MEDICAL [place] [address] [facility] CHILDRENS INFUSION 2 HOSPITAL HOSPITAL THERAPY/P MEDICAL MEDICAL ROPHYLAXI C C S /DX 1ST TO 1 HR HEPATIC 90386 [facility]ILDR[facility] FUNCTION 2 [facility] PANEL MEDICAL MEDICAL C C BLOOD 51929 [facility] COUNT 2 [facility] COMPLETE MEDICAL MEDICAL AUTO&[place] [address] [facility] INFUSION 2 HOSPITAL HOSPITAL THERAPY/P MEDICAL MEDICAL ROPHYLAXI C C S /DX 1ST TO 1 HR DRUG 11786 [facility]DR[facility] SCREEN 2 [facility] QUANTITAT MEDICAL MEDICAL BEN C C SIROLIMUS BASIC 22066 [facility] METABOLIC 2 [facility] PANEL MEDICAL MEDICAL CALCIUM C C TOTAL 5% J7060 [facility]DREN CHILDREN DEXTROSE/ 2 [facility] WATER MEDICAL MEDICAL C C INJ IG J1569 [facility] GAMMAGARD [address] [place] [address] LIQ IV MEDICAL MEDICAL NONLYOPHI C C LIZED 500 [place] [address] [facility]EN [facility]ILDRENS INFUSION 2 [facility] THERAPY MEDICAL MEDICAL PROPHYLAX [place] [address] [facility]DRENS MAGNESIUM 2 [facility]PITAL MEDICAL MEDICAL C C COLLECTIO 70467 [facility] CH[facility] N VENOUS [address] [place] [address] BLOOD MEDICAL MEDICAL VENIPUNCT C C URE BASIC 86488 [facility] METABOLIC 2 [facility] PANEL MEDICAL [place] [address] [facility] CH[facility] PHOSPHORU [address] [place] [address] S [place]ICAL [place] [address] [facility] CH[facility] FREE [address] [place] [address] THYRO[place] [address] [facility]ENS CHILDRENS THYROID 2 [facility] STIMULATI MEDICAL MEDICAL NG C C HORMONE TSH DRUG 30147 [facility] CH[facility] SCREEN [address] [place] [address] QUANTITAT MEDICAL MEDICAL [place] [address] [facility] GAMMAGLOB [address] [place] [address] ULIN IGA MEDICAL MEDICAL IGD IGG C C IGM EACH BLOOD 96370 [facility] CHILDRENS COUNT [address] [place] [address] COMPLETE MEDICAL MEDICAL AUTOMATED C C HEPATIC 21945 [facility]EN CHILDRENS FUNCTION 2 [facility]PITAL PANEL MEDICAL MEDICAL C C ANTIBODY 24770 [facility] BACTERIUM [address] [place] [address] NOT MEDICAL MEDICAL ELSEWHERE C C SPECIFIED ANTIBODY 68744 [facility] VARICELLA [address] [place] [address] -ZOSTER MEDICAL MEDICAL C C LYMPHOCYT 54257 [facility] E TR [address] [place] [address] MITOGEN/A MEDICAL MEDICAL G INDUCED C C BLASTOGEN ESIS ANTIBODY 99350 [facility] TETANUS [address] [place] [address] MEDICAL MEDICAL C C BLOOD 37864 [facility] COUNT [address] [place] [address] SMEAR MEDICAL MEDICAL MCRSCP C C W/MNL DIFRNTL WBC COUNT FLOW [address] MEDICAL MEDICAL 2-[place] [address] [facility] [place] WESTERFIE RETROPERI 2 RADIOLOGY LD IV A TONEAL REAL TIME W/IMAGE LIMITED RADIOLOGI 71180 [facility] [place] GENI C EXAM 2 RADIOLOGY LEON CHEST 2 VIEWS FRONTAL&L ATERAL GENERAL [address] PANEL MEDICAL MEDICAL C C FLOW [address] MEDICAL MEDICAL 2-8 C C MARKERS MICROSOMA [address] ANTIBODIE MEDICAL MEDICAL S EACH C C THROMBOPL 87100 [facility] ASTIN [address] [place] [address] TIME MEDICAL MEDICAL PARTIAL C C PLASMA/WH OLE BLOOD FLUORESCE [address] NONNFCT MEDICAL MEDICAL AGT ANTB C C SCREEN EA ANTIBODY PROTHROMB 27422 [facility] IN TIME [address] [place] [address] MEDICAL MEDICAL C C IMMUNOASS [address] ANALYTE MEDICAL MEDICAL QUAL/SEMI C C QUAL MULTIPLE STEP BILE 71093 [facility] ACIDS [address] [place] [address] TOTAL MEDICAL MEDICAL C C [address] INCLUDES MEDICAL MEDICAL FRACTIONS [place] [address] [facility] MAGNESIUM [address] [place] [address] [place] [address] [facility] PHOSPHORU [address] [place] [address] S MEDICAL MEDICAL INORGANIC C C ALPHA-FET 36163 [facility] OPROTEIN [address] [place] [address] [place] [address] [facility] GAMMAGLOB [address] [place] [address] ULIN IGA [facility] [place] [address] RADIOLOGY FARFAN ABDOMINAL 2 ANAT REAL ASSOCIATE TIME S OF NOTH W/IMAGE LIMITED GROUND A0425 JERILYN JERILYN MILEAGE 2 FAYETTE FAYETTE PER URBAN URBAN STATUTE COGOVT COGOVT MILE AMB A0427 JERILYN JERILYN SERVICE 2 FAY[place] FAYETTE ALS URBAN URBAN EMERGENCY [place] [address] MICHAEL BAR MICHAEL BAR HEAD/BRAI 2 N W/[place] [address] MICHAEL BAR MICHAEL BAR THORACIC 2 SPINE W/O CONTRAST MATERIAL RADEX 23710 [facility] [place] RODRIGUES FOOT 2 RADIOLOGY TIFFANY COMPLETE MINIMUM [address] [place] [address] NE[facility]ALL EBONYKAM 1/> AREAS 2 [facility] JOSE DAVID EACH 15 TIC MIN CENTER NEUROMUSC REEDUCA THERAPEUT 77393 [facility] IC PX 1/> 2 [facility] JOSE DAVID AREAS TIC EACH 15 CENTER MIN EXERCISES CHIROPRAC 29234 [facility] TIC 2 [facility] JOSE DAVID MANIPULAT TIC BEN TX CENTER SPINAL 3-4 REGIONS STRAPPING 78027 ACS ACS KNEE 2 PRIMARY PRIMARY CARE CARE PHYSICANS PHYSICANS M M BLOOD [address] COUNT 2 [facility] WIL[facility] COMPLETE FT FT AUTO&AUTO [facility] STOKES DIFRNTL WBC BASIC [address] METABOLIC 2 [facility] PANEL FT FT CALCIUM [facility] STOKES TOTAL COLLECTIO [address] N VENOUS 2 [facility]IL[facility] BLOOD FT FT VENIPUNCT [facility] STOKES URE URNLS DIP [address] 2 [facility] STICK/TAB FT FT LET RGNT [facility] STOKES NON-AUTO W/O MICRSCP INJ J1720 ST ST HYDROCORT 2 [facility] ISONE FT FT SODIUM DIVYA STOKES SUCCINATE TO [address] [place] [address] INFUSION 2 [facility] RACHEL HYDRATION FT FT EACH [facility] STOKES ADDITIONA L HOUR THER [address] PROPH/DX 2 WILSONCARLO RACHEL NJX IV FT FT PUSH DIVYA STOKES SINGLE/1S T SBST/[place] [address] MICHAEL BAR MICHAEL BAR MAXILLOFA 2 CIAL W/[place] [address] [facility] HISTOPLAS 1 [facility] M MEDICAL [place] [address] [facility] CH[facility] PHOSPHORU 1 [facility] S [facility] MEDICAL INORGANIC C C GONADOTRO 92739 [facility] CH[facility] PIN [address] [place] [address] CHORIONIC [facility] MEDICAL C C QUANTITAT BEN UNLISTED 09514 [facility] CH[facility] IMMUNOLOG [address] [place] [address] Y MEDICAL MEDICAL C C COLLECTIO 16455 [facility] CH[facility] N VENOUS 1 [facility] BLOOD [facility] [place] [address] [facility] MAGNESIUM [address] [place] [address] MEDICAL MEDICAL C C BLOOD 23420 [facility] COUNT [address] [place] [address] SMEAR [facility] MEDICAL MCRSCP C C W/MNL DIFRNTL WBC COUNT BLOOD 33148 [facility] COUNT [address] [place] [address] COMPLETE MEDICAL MEDICAL AUTOMATED C C DRUG 51008 [facility] CHILDRENS SCREEN [address] [place] [address] QUANTITAT MEDICAL MEDICAL BEN C C SIROLIMUS COMPREHEN 48811 [facility] CHILDRENS SIVE [address] [place] [address] METABOLIC MEDICAL MEDICAL PANEL C C RADEX 37868 [facility] [place] KOSTELIC RIBS UNI 1 RADIOLOGY ANA W/POSTERO ANT CH MINIMUM 3 [place] [address] ACS MERCHANT RIB 1 PRIMARY KET FRACTURE CARE [place] [address] [facility] HEAD/BRAI 1 [facility] N W/O CONTRAST MATERIAL THERAPEUT 36625 [facility] IC 1 [facility] PROPHYLAC TIC/DX INJECTION SUBQ/IM INJ J1720 [facility] HYDROCORT 1 [facility] ISONE SODIUM SUCCINATE TO 100 MG GONADOTRO 63494 [facility] PIN 1 [facility] [place] [address] [facility]DRENS [facility]DRENS GAMMAGLOB 1 [facility] ULIN IGA MEDICAL MEDICAL IGD IGG C C IGM EACH CREATININ 92679 [facility]DR[facility] E OTHER 1 [facility] SOURCE MEDICAL MEDICAL C C URNLS DIP 26847 [facility]ENS [address] [place] [address] STICK/TAB MEDICAL MEDICAL LET RGNT C C AUTO W/O MICROSCOP Y ALPHA-FET 76933 [facility] OPROTEIN 1 [facility] SERUM MEDICAL MEDICAL C C COLLECTIO 54882 [facility] CH[facility]DRENS N VENOUS 1 [facility] BLOOD MEDICAL MEDICAL VENIPUNCT C C URE FLOW 59164 [facility] CYTOMETRY 1 [facility] CELL MEDICAL MEDICAL SURF C C MARKER TECHL ONLY EA BLOOD 05698 [facility] COUNT [address] [place] [address] SMEAR MEDICAL MEDICAL MCRSCP C C W/MNL DIFRNTL WBC COUNT PROTEIN 49829 [facility]DRENS TOTAL 1 [facility] XCPT MEDICAL MEDICAL [place] [address] [facility] CH[facility] THYROXINE [address] [place] [address] [place] [address] [facility] CH[facility] MAGNESIUM [address] [place] [address] MEDICAL MEDICAL C C MICROSOMA 15738 [facility] CHILDRENS L 1 [facility] ANTIBODIE MEDICAL MEDICAL S EACH C C FLOW 89055 [facility] CH[facility]ENS CYTOMETRY 1 [facility] INTERPJ MEDICAL MEDICAL 2-8 C C [place] FLUORESCE 27006 [facility] NT [address] [place] [address] NONNFCT MEDICAL MEDICAL AGT ANTB C C SCREEN EA ANTIBODY 25 45708 [facility] HYDROXY [address] [place] [address] INCLUDES MEDICAL MEDICAL FRACTIONS C C IF PERFORMED BILE 86140 [facility] ACIDS [address] [place] [address] TOTAL MEDICAL MEDICAL C C IMMUNOASS 44918 [facility] AY [address] [place] [address] ANALYTE MEDICAL MEDICAL QUAL/SEMI C C QUAL MULTIPLE STEP GENERAL 13759 [facility] CHILDRENS HEALTH [address] [place] [address] [place] [address] [facility] CH[facility] PHOSPHORU [address] [place] [address] S MEDICAL MEDICAL INORGANIC C C FLOW 52603 [facility] CYTOMETRY [address] [place] [address] SURF C C MARKER TECHL ONLY 1ST RADIOLOGI [address] [facility] C EXAM 1 HOSP MED ALLY ANGEL CHEST 2 CTR VIEWS FRONTAL&L ATERAL INCISION 17989 ACS LEHNERT & 1 PRIMARY RAY DRAINAGE CARE ABSCESS PHYSICANS COMPLICAT M ED/MULTIP LE BLOOD 58201 CHERISE GREGG SMEAR 1 [facility] L INTERP PSC PHYS W/[place] [address] [facility] [place] JAM MAXILLOFA 1 RADIOLOGY CIAL W/O CONTRAST MATERIAL GONADOTRO 73245 [facility] PIN 1 [facility] CHORIONIC QUALITATI VE RADEX 80094 RADIOLOGY LAIB JOHN SPINE 0 CERVICAL ASSOCIATE 4 OR 5 S PSC VIEWS RADIOLOGI 56985 RADIOLOGY LAIB JOHN C EXAM 0 CHEST 2 ASSOCIATE VIEWS S PSC FRONTAL&L ATERAL URINE 55434 GRIGSBY, 0 [facility] CANDIDO TEST VISUAL PHYSICIAN COLOR S CMPRSN METHS Encounters Encounter Start End Date Code Location Performer Type Date HOSPITAL ST - 7 7 [facility] OUTPATIEN T HEALTHCAR E EDGE INITIAL 62200 [facility] PREVENTIV 7 7 [facility] E MEDICINE PHYSICIAN NEW PT S AGE 18-39YRS EMERGENCY 24724 [facility] 7 7 EMERGENCY DEPARTMEN T VISIT PHYSICIAN HIGH/URGE S NT SEVERITY OFFICE 67541 [facility] GEORGEPATIJOE 7 7 [facility] T VISIT TIC 15 CENTER MINUTES OFFICE 61659 [facility] OUTPATIEN 7 7 HEALTHCAR T VISIT 5 E MINUTES [facility] - 7 7 HEALTHCAR OUTPATIEN E T HOSPITALS OFFICE 18878 [facility] SINGLTEON OUTPATIEN 7 7 MEDICAL T NEW 45 SERV MINUTES FOUNDATIO N OFFICE 27761 LANNY GEORGEPATIJOE 7 7 [facility] T VISIT TIC 15 CENTER MINUTES HOSPITAL [facility] - 6 6 [facility]ALTHCAR OUTPATIEN E T HOSPITALS OFFICE 82302 [facility] OUTPATIEN 6 6 HEALTHCAR T VISIT 5 E MINUTES HOSPITALS OFFICE 20463 [facility] OUTPATIEN 6 6 [place] KANG T VISIT PHYSICIAN 15 S ASSIST MINUTES EMERGENCY 37105 TYLER PIÑA 6 6 PHYSICIAN CURTIS DEPARTMEN S, PLLC T VISIT MODERATE SEVERITY OFFICE [address] [facility] OUTPATIEN 6 6 [facility] MIN T VISIT HOSPITAL 25 MEDICAL [facility] THE - 6 6 MID [facility] T OFFICE 17276 LANNY BAÑUELOS [facility] 6 6 [facility] T VISIT TIC 15 CENTER MINUTES EMERGENCY 88402 TYLER PIÑA 6 6 PHYSICIAN CURTIS DEPARTMEN S, PLLC T VISIT MODERATE SEVERITY HOSPITAL UNIVERSIT - 6 6 Y [facility] T OFFICE 24212 [facility] 6 6 Y T VISIT 5 HOSPITAL MINUTES OFFICE 23497 LANNY BAÑ[facility]ELOS [facility] 6 6 [facility] GAR T VISIT TIC 15 CENTER MINUTES EMERGENCY 30572 [facility] CHICHI 5 5 EMERGENCY DEPARTMEN T VISIT PHYSICIAN HIGH/URGE S NT SEVERITY OFFICE 86372 ALVIN CARRANZA OUTPATIEN 5 5 MEDICAL JUS T VISIT SERV 15 FOUNDATIO MINUTES N HOSPITAL [facility] 50853 UN[facility] OUTPATIEN 5 5 Y T VISIT 5 HOSPITAL MINUTES OFFICE 54351 [facility] 5 5 CHIROPRAC T VISIT TIC 15 CENTER MINUTES HOSPITAL CARDINAL - 5 5 [facility] OUTPATIEN REHABILIT T ATION OFFICE 52197 [place] ERLANDSON OUTPATIEN 5 5 MEDICAL SHEA T VISIT SERV 25 FOUNDATIO MINUTES N OFFICE 83071 CARD[facility]AL OUTPATIEN 5 5 [facility] T VISIT REHABILIT 10 ATION MINUTES HOSPITAL UNIVERSIT - 5 5 Y OUTPATIEN HOSPITAL T OFFICE 95549 UNIVERSIT OUTPATIEN 5 5 Y T VISIT 5 HOSPITAL MINUTES OFFICE 16333 [facility]ER TRAN OUTPATIEN 5 5 HOSPITAL MIN T NEW 45 MEDICAL MINUTES ASSO OFFICE 34280 ALVIN CARRANZA OUTPATIEN 5 5 MEDICAL JUS T VISIT SERV 25 FOUNDATIO MINUTES N HOSPITAL CARDINAL - 5 5 [facility] INPATIENT REHABILIT ATION EMERGENCY 38610 [facility] CELLAROSI DEPT 5 5 LUZ ELENA - YORBA VISIT EMERGENCY PAT HIGH PHYS SEVERITY& THREAT FUNCJ OFFICE 20897 COLE NOLANON OUTPATIEN 5 5 COL COL T NEW 20 MINUTES EMERGENCY 26390 [facility] GERONIMO ERIC DEPT 4 4 LUZ ELENA VISIT EMERGENCY HIGH PHYS SEVERITY& THREAT FUN[facility] [place] UNIVERSIT - 4 4 Y OF INPATIENT [facility] OFFICE 32877 ROSEMARIE HOUSTON OUTPATIEN 4 4 DONNA DONNA T VISIT 15 MINUTES EMERGENCY 65083 MICHELLE KIMI SAMANOO HO DEPT 4 4 VISIT HIGH SEVERITY& THREAT FUNCJ OFFICE 17032 ROSEMARIE HOUSTON OUTPATIEN 4 4 DONNA DONNA T VISIT 15 MINUTES EMERGENCY 63832 [facility] CADET 4 4 DEPARTMEN T VISIT HIGH/URGE NT SEVERITY HOSPITAL ST - 4 4 [facility] OUTPATIEN FT T DIVYA EMERGENCY [address] ST 4 4 [facility]IL[facility] DEPARTMEN FT T VISIT DIVYA MODERATE SEVERITY EMERGENCY 99468 LINDA VARGAS DEPT 3 3 VISIT HIGH SEVERITY& THREAT FUNCJ EMERGENCY 31713 JUSTIN ANDERSON 3 3 SCO SCO DEPARTMEN T VISIT HIGH/URGE NT SEVERITY EMERGENCY 52979 MARCO LARA DEPT 3 3 RYA RYA VISIT HIGH SEVERITY& THREAT FUNJ [facility] [place] [address] 3 [facility] EM[facility]GENC[facility] 33203 [facility] 3 3 N [facility] COMMUNITY T VISIT HOSPITA HIGH/URGE NT SEVERITY [facility] [place] [address] 3 N [facility] EMERG[facility] 32173 DOMINGUEZ MIX 3 3 EITAN EITAN DEPARTMEN T VISIT MODERATE SEVERITY EMERGENCY 94136 [facility] 3 3 N [facility] T VISIT HOSPITA HIGH/URGE NT SEVERITY [facility] [place] [address] 3 N [facility] 61462 CELLAROSI CELLAROSI 3 3 - YORBA - YORBA [facility] PAT PAT T VISIT HIGH/URGE NT SEVERITY HOSPITAL [address] [facility] [place] [address] 3 N [facility] EMERGENC[facility] 89462 [place] VARGAS DEPT 3 3 EMERGENCY VISIT SERVICES HIGH SEVERITY& THREAT FUN EMERGENCY 30843 [place] MIX 3 3 EMERGENCY EITAN DEPARTMEN SERVICES T VISIT MODERATE SEVERITY OFFICE 17519 [facility] 3 3 HOSP MED GRE T VISIT CTR 25 MINUTES [facility] [place] [address] 3 [facility] C OFF[facility] 55049 [facility] 3 3 Y OF WILLI T VISIT CINCINNAT 25 I PHY MINUTES OFFICE 00097 [facility] 3 3 Y T VISIT 5 HOSPITAL MINUTES OFFICE 79392 [facility] OUTPATIEN 3 3 HOSP MED GRE T VISIT CTR 15 MINUTES HOSPITAL UNIVERSIT - 3 3 [facility] T OFF[facility] 06314 [facility] OUTPATI[facility] 3 3 HOSP MED GRE T VISIT CTR 25 MINUTES [facility] 3 [address] [facility] 3 [facility] 3 3 [facility] C [facility] 89[facility] 3 HOSPITAL EITAN T VISIT MEDICAL 25 C MINUTES EMERGENCY 92459 [facility] HOSPITAL VISIT MEDICAL HIGH C SEVERITY& THREAT [facility] 3 3 [facility] 3 [facility] C OFFICE 09025 CHILDREN SAM RIN OUTPATIEN 2 2 HOSP MED T NEW 45 CTR MINUTES OFFICE 91820 CHILDRENS CUTHRELL OUTPATIEN 2 2 HOSPITAL EITAN T VISIT MEDICAL 25 C MINUTES HOSPITAL [facility]ENS - 2 2 [facility] T C OFFICE 23011 [facility]ILDRENS CUTHRELL OUTPATIEN 2 2 HOSP MED EITAN T VISIT CTR 25 MINUTES [facility] 31826 PENDELETO PENDELETO PREVENTIV 2 2 N CO N CO E MED EST [facility] HEALTH PATIENT CENTER CENTER 18-39 YRS [facility] CHILDRENS - 2 2 [facility] T C OFFICE 88836 [facility] FILIPOVIC OUTPATIEN 2 2 HOSP MED H EMILY T VISIT CTR 25 MINUTES OFFICE 78436 [facility] RAUL OUTPATIEN 2 2 HOSPITAL MAR T VISIT MEDICAL 25 C MINUTES [facility] T C OFFICE 81448 [place] OUTPATIEN 2 2 HOSPITAL GRE T VISIT MEDICAL 40 C MINUTES OFFICE 17504 [facility] OUTPATIEN 2 2 [facility] T VISIT MEDICAL 15 C MINUTES OFFICE 13604 CHILDRENMarino SOOD OUTPATIEN 2 2 HOSP MED H EMILY T NEW 30 CTR MINUTES [facility] C EMERGENCY 80054 [facility] DEPT 2 2 PRIMARY VISIT CARE HIGH PHYSICANS SEVERITY& M THREAT FUNCJ EMERGENCY 93239 [facility] AUB[facility]E 2 2 PRIMARY EDW DEPARTMEN CARE T VISIT PHYSICANS HIGH/URGE M NT SEVERITY [facility] 2 [facility] C [facility] T [facility]ISIT MED[facility] [address] - 2 2 [facility] EMERGENC[facility] 09376 [facility] DEPT 2 2 LUZ ELENA VISIT EMERGENCY HIGH PHYS SEVERITY& THREAT FUNCJ EMERGENCY 11836 [facility] 2 2 PRIMARY DEPARTMEN CARE T VISIT PHYSICANS HIGH/URGE M NT SEVERITY EMERGENCY 05201 [facility] 2 2 PRIMARY DEPARTMEN CARE T VISIT PHYSICANS MODERATE M SEVERITY OFFICE 43301 [facility] DAVID T NEW 30 TIC MINUTES CENTER EMERGENCY 32358 ACS 2 2 PRIMARY DEPARTMEN CARE T VISIT PHYSICANS HIGH/URGE M NT SEVERITY EMERGENCY 52294 ST 2 2 [place] DEPARTMEN FT T VISIT DIVYA HIGH/URGE NT SEVERITY EMERGENCY 29809 [facility] PERE[facility] DEPT 2 2 VISIT HIGH SEVERITY& THREAT [facility] ST - 2 2 [facility] OUTPATIEN FT T DIVYA EMERGENCY 56191 DIVYA DIVYA 2 2 DIANA DIANA DEPARTMEN T VISIT HIGH/URGE NT SEVERITY [facility]PITAL [facility] - OTHER 1 1 HOSPITAL MEDICAL C OFFICE 80182 YAZIGI YAZIGI OUTPATIEN 1 1 NAD NAD T VISIT 25 MINUTES OFFICE 00110 [facility] OUT[facility] 1 1 HOSPITAL T VISIT MEDICAL 40 C MINUTES EMERGENCY 49239 [facility]CHANT 1 1 PRIMARY KET DEPARTMEN CARE T VISIT PHYSICANS HIGH/URGE M NT SEVERITY EMERGENCY 65[address] [facility] 1 1 EAST DEPARTMEN T VISIT HIGH/URGE NT SEVERITY EMERGENCY 83333 [facility] SERRANO 1 1 PRIMARY PHI DEPARTMEN CARE T VISIT PHYSICANS MODERATE M SEVERITY [facility] - OTHER 1 1 HOSPITAL MEDICAL C OFFICE 90795 [facility] YAZIGI OUTPATIEN 1 1 HOSP MED NAD T VISIT CTR 25 MINUTES OFFICE 74855 [facility] OUTPATIEN 1 1 HOSPITAL T VISIT MEDICAL 40 C [address]ER[address] [facility] 1 1 EAST DEPARTMEN T VISIT LOW/MODER SEVERITY [facility] - 1 1 EAST OUTPATIEN T EMERGENCY 22418 [facility] 1 1 PRIMARY RAY DEPARTMEN CARE T VISIT PHYSICANS HIGH/URGE M NT SEVERITY EMERGENCY 57167 [facility] 1 1 LUZ ELENA DEPARTMEN EMERGENCY T VISIT PHYS MODERATE SEVERITY [facility] - 1 1 HOSPITAL OUTPATIEN T EMERGENCY 02653 [facility] 1 1 EAST DEPARTMEN T VISIT MODERATE SEVERITY EMERGENCY 68034 [facility] STACK MEENU 1 1 PRIMARY DEPARTMEN CARE T VISIT PHYSICANS HIGH/URGE M NT SEVERITY [facility] - 1 1 EAST OUTPATIEN T EMERGENCY 41396 EMERGENCY EMERY CHICHI 0 0 CARE DEPARTMEN PHYS T VISIT [facility] HIGH/URGE NT SEVERITY OFFICE [address] [facility] OUTPATI[facility] 0 0 [place] SHE T VISIT 25 PHYSICIAN MINUTES S EMERGENCY 71362 EMERGENCY EMERY CHICHI 0 0 CARE DEPARTMEN PHYS T VISIT [facility] HIGH/URGE NT SEVERITY OFFICE [id number] [facility] OUTPATIEN 0 0 [place] SHE T VISIT 25 PHYSICIAN MINUTES S EMERGENCY [id number] [facility]IAS 0 0 [place] DEPARTMEN MED CTR T VISIT HIGH/URGE NT SEVERITY EMERGENCY [id number] ST 0 0 [place] DEPARTMEN T VISIT MEDICALCE MODERATE NTER SEVERITY [facility]OSPITAL ST - 0 0 [facility] OUTPATIEN T MEDICALCE NTER EMERGENCY 84114 EMERGENCY VEST ANA 0 0 CARE DEPARTMEN PHYS T VISIT [facility] HIGH/URGE NT SEVERITY OFFICE [address] [facility], OUTPATIEN 0 0 [facility] CANDIDO T VISIT 15 PHYSICIAN MINUTES S OFFICE [address] [facility], OUTPATIEN 0 0 [facility] CANDIDO T VISIT 25 PHYSICIAN MINUTES S
--- OUTSIDE RECORDS SUMMARY | 2017-03-29 02:19 | External Medical Summary Rpt | CCD ---
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 00 RE 28 RS ve ET 27 20 20 EN 1 ON HO 20 11 11 S XA 5 #1 TI ZO 07 MO LE 76 TH -T # Y MP K 10 DS 77 6 TA BL ET FL 00 08 08 0 2. 2 WA 21 AN Ac UC 17 -2 -2 00 LG 19 DE ti ON 25 5- 5- 0 RE 28 RS ve AZ 41 20 20 EN 2 ON OL 21 11 11 S E 1 #1 TI 15 07 MO 0 76 TH MG # Y K TA 10 BL 77 ET 6 LE 68 05 08 2 60 30 WA 21 SC Ac VE 18 -1 -2 .0 LG 00 FELIZ ti TI 00 6- 4- 00 RE 02 CK ve RA 11 20 20 EN 3 CE 41 11 11 S BR TA 6 #1 IA M 07 N 75 76 0 # MG 10 TA 77 BL 6 ET LE 00 01 08 6 30 30 [...] 20 EN 4 31 11 11 S VA 0 #1 NA 07 C 76 # 10 77 6 00 08 08 2 28 28 WA 21 KA Ac 43 -0 -0 .0 LG 11 LF ti 00 2- 2- 00 RE 06 ve 53 20 20 EN 1 01 11 11 S VA 4 #1 NA 07 C 76 # 10 77 6 VA 00 07 07 0 4. 2 CV 57 KA Ac LT 17 -2 -2 00 S 90 LF ti RE 30 7- 7- 0 PH 74 ve X 56 20 20 AR 1 50 11 11 MA VA GM 4 CY NA # C CA [...] EN 8 OL 80 11 11 S VA 1 #1 NA 0. 07 C 5 76 MC # G CA 10 PS 77 UL 6 E 00 06 06 3 15 30 WA 21 KA Ac 14 -2 -2 .0 LG 00 LF ti 31 9- 9- 00 RE 05 ve 47 20 20 EN 4 31 11 11 S VA 0 #1 NA 07 C 76 # 10 77 6 LE 68 05 06 2 60 30 WA 21 SC Ac VE 18 -1 -2 .0 LG 00 FELIZ ti TI 00 6- 9 00 RE 02 CK ve RA 11 20 20 EN 3 CE 41 11 11 S BR TA 6 #1 IA M 07 N 75 76 0 # MG 10 TA 77 BL 6 ET LE 00 01 06 6 30 30 [...] E 10 DR 77 OP 6 S MS 00 05 05 0 15 3 WA 20 NE Ac OM 78 -2 -2 .0 LG 89 WM ti ET 11 00 RE 40 AN ve FELIZ 83 20 20 EN 4 ZI 00 11 11 S LY NE 1 #1 ND 07 A 25 76 L # MG 10 TA 77 BL 6 ET 00 05 05 2 15 30 WA 20 KA Ac 14 -1 -2 .0 LG 83 LF ti 31 3 9- 00 RE 65 ve 47 20 20 EN 4 31 11 11 S VA 0 #1 NA 07 C 76 # 10 77 6 00 05 05 0 12 2 WA [...] JE ZA 71 11 11 S SS MS 0 #1 IC IN 07 A E [...] 20 EN 9 31 11 11 S VA 0 #1 NA 07 C 76 # [...] 20 EN 9 31 11 11 S VA 0 #1 NA 07 C 76 # [...] G 10 TA 77 BL 6 ET MS 00 01 01 2 60 30 CV [...] 20 EN 1 01 10 11 S VA 4 #7 NA 34 C 6 # [...] A TA 05 BL 43 ET 7 MS 00 09 12 0 60 30 CV 55 BE Ac ED 59 -1 -0 .0 S 29 ZE ti NI 15 4- 6- 00 PH 78 RR ve SO 05 20 20 AR A NE 21 10 10 MA SARAH 5 0 CY RG # E MG A 05 TA 43 BL 7 ET AM 00 12 12 0 28 14 CV 55 TH Ac OX 78 -0 -0 .0 S 23 OR ti IC 12 1- 1- 00 PH 72 NT ve IL 61 20 20 AR ON LI 30 10 10 MA N 5 CY SH 50 # EL 0 BY MG 05 43 CA 7 PS UL E FL 00 12 12 0 14 14 CV 55 TH Ac UC 17 -0 -0 .0 S 23 OR ti ON 25 1- - 00 PH 73 NT ve AZ 41 20 20 AR ON OL 14 10 10 MA E 6 CY SH 10 # EL 0 BY MG 05 43 TA 7 BL ET SE 59 11 11 2 30 30 [...] # MG 40 82 TA BL ET MS 00 10 10 0 10 3 WA 74 TH Ac OM 60 -2 -2 .0 LG 31 OR ti ET 35 2- 2- 00 RE 15 NT ve FELIZ 43 20 20 EN ON ZI 72 10 10 S NE 1 #7 SH 09 EL 12 3 BY .5 # 70 MG 93 TA BL ET CA 00 04 10 1 48 30 WA 91 HO Ac LC 09 -2 -2 0. LG 27 WE ti IT 30 0- 1- 00 RE 78 LL ve RI 65 20 20 0 EN OL 80 10 10 S SARAH 1 #4 NA 0. 08 TH 5 2 AN MC # C G 40 CA 82 PS UL E 00 09 10 1 60 30 WA 96 BE Ac 14 -1 -2 .0 LG 15 ZE ti 31 4- 1- 00 RE 46 RR ve 47 20 20 EN A 51 10 10 S SARAH 0 #4 RG 08 E 2 A # 40 82 CI 16 10 10 0 14 7 WA 30 SH Ac MS 25 -1 -2 .0 LG 81 IE [...] EN 0 NE 00 10 10 S VA 5 #7 NA HC 34 C L 6 10 # 0 73 MG 46 TA BL ET 00 08 08 5 28 28 WA 30 KA Ac 43 -3 -3 .0 LG 58 LF ti 00 1- 1- 00 RE 97 ve 53 20 20 EN 1 01 10 10 S VA 4 #7 NA 34 C 6 # [...] 08 08 0 15 5 WA 30 VA Ac CL 74 -1 -1 .0 LG 51 LL ti OB 60 5- 5- 00 RE 80 ER ve EN 17 20 20 EN 1 ZA 71 10 10 S BR MS 0 #7 IA IN 34 N E [...] .0 LG 45 ZI ti ON 25 1- 1- 00 RE 15 GI ve AZ 41 [...] 06 ve CO 03 20 20 EN BUCKENR RT 30 10 10 S SA IS 1 #4 N ON 08 R E 2 0. # 1 40 MG 82 TA BL ET LE 00 12 06 8 30 30 WA 91 RO Ac VO 52 -2 -2 .0 LG 58 SE ti TH 71 9- 7- 00 RE 01 ve YR 34 20 20 EN BUCKNER OX 51 09 10 S SA IN 0 #4 N E 08 R 10 2 0 # MC 40 G 82 TA BL ET RA 00 06 06 0 60 30 WA 92 YA Ac PA 00 -0 -0 .0 LG 33 ZI ti MU 81 5- 5- 00 RE 06 GI ve NE 04 20 20 EN 1 10 10 10 S NA 5 #4 DA MG 08 A 2 TA # BL 40 ET 82 BUCKNER 61 06 06 0 15 15 WA 92 KA Ac LF 31 -0 -0 .0 LG 38 LF ti AC 40 1- 1- 00 RE 56 ve ET 70 20 20 EN AM 10 10 10 S VA ID 1 #4 NA E 08 C 10 2 % # EY [address] OP S LE 00 12 05 8 30 30 WA 91 RO Ac [...] 82 TA BL ET FL 00 04 05 0 30 30 WA 91 RO Ac UD 11 -1 -1 .0 LG 06 SE ti RO 57 3- 5- 00 RE 06 ve CO 03 20 20 EN BUCKNER RT 30 10 10 S SA IS 1 #4 N ON 08 R E 2 0. # 1 40 MG 82 TA BL ET 00 12 05 2 84 84 WA 91 RO Ac 43 -2 -1 .0 LG 95 SE ti 00 9- 5- 00 RE 18 ve 53 20 20 EN BUCKNER 01 09 10 S SA 4 #4 N 08 R 2 # 40 82 00 08 05 2 60 30 WA 91 YA Ac 14 -1 -1 .0 LG 95 ZI ti 31 4- 5- 00 RE 17 GI ve 47 20 20 EN 31 09 10 S NA 0 #4 DA 08 A 2 # 40 82 AC 00 05 05 0 12 2 WA 91 EL Ac ET 60 -1 -1 .0 LG 83 LE ti AM 32 1- 1- 00 RE 55 MA ve IN 33 20 20 EN N OP 83 10 10 S VA HE 2 #4 CH N- 08 AE CO 2 L D # #3 40 82 TA BL ET LE 00 12 05 8 30 30 WA 91 RO Ac VO 52 -2 -0 .0 LG 58 SE ti TH 71 9- 1- 00 RE 01 ve YR 34 20 20 EN BUCKNER OX 51 09 10 S SA IN 0 #4 N E 08 R 10 2 0 # MC 40 G 82 TA BL ET CA 00 04 04 1 48 30 WA 91 HO Ac LC 09 -2 -2 0. LG 27 WE ti IT 30 0- 1- 00 RE 78 LL ve RI 65 20 20 0 EN OL 80 10 10 S SARAH 1 #4 NA 0. 08 TH 5 2 AN MC # C G 40 CA 82 PS UL E LE 68 10 04 7 60 30 WA 91 AR Ac VE 18 -0 -1 .0 LG 20 TH ti TI 00 1- 7- 00 RE 06 UR ve RA 11 20 20 EN CE 41 09 10 S TO TA 6 #4 DD M 08 75 2 0 # MG 40 82 TA BL ET FL 00 04 04 0 30 30 WA 91 RO Ac UD 11 -1 -1 .0 LG 06 SE ti RO 57 3- 3- 00 RE 06 ve CO 03 20 20 EN BUCKNER RT 30 10 10 S SA IS 1 #4 N ON 08 R E 2 0. # 1 40 MG 82 TA BL ET RA 00 04 04 0 60 30 WA 91 YA Ac PA 00 -1 -1 [...] .0 LG 10 t ti IT 30 7- 7- 00 RE 26 Av ve RI [...] 09 TH ti TI 00 1- - RE 96 UR ve RA 11 20 20 EN 5 CE 41 09 10 # TO TA 6 DD M 07 75 34 0 6 MG TA BL ET FL 00 01 01 00 15 14 CV 51 KA Ac UC 17 -1 -2 .0 S 86 LF ti ON 25 4 8- 00 PH 12 ve AZ 41 20 20 AR OL 14 10 10 MA VA E 6 CY NA 10 C 0 #5 MG 43 7 TA BL ET AM 00 06 15 00 28 14 CV 51 KA Ac OX 09 -1 -2 .0 S 86 LF ti IC 33 4- 8- 00 PH 13 ve IL 10 20 20 AR LI 90 10 10 MA VA N 5 CY NA 50 C 0 #5 MG 43 7 CA PS UL E HY 00 06 15 00 30 5 CV [address] 55 -0 -1 .0 S 78 LF ti OX 50 6- 4- 00 PH 61 ve YZ 30 20 20 AR IN 20 10 10 MA VA E 2 CY NA PA C M #5 50 43 7 MG CA P MS 00 08 01 02 60 30 WA 28 YA Ac ED 59 -1 -1 .0 LG 77 ZI ti NI 15 4- 4- 00 RE 12 GI ve SO 44 20 20 EN 1 NE 20 09 10 # NA 5 DA 10 07 A 34 MG 6 TA BL ET 00 12 01 00 84 84 WA 29 RO Ac 43 -2 -1 .0 LG 47 SE ti 00 9- 4- 00 RE 11 ve 53 20 20 EN 3 BUCKNER 01 09 10 # SA 4 N 07 R 34 6 LE 00 12 01 00 30 30 WA 29 RO Ac VO 52 -2 -1 .0 LG 47 SE ti TH 71 9- 4- 00 RE 11 ve YR 34 20 20 EN 4 BUCKNER OX 51 09 10 # SA IN 0 N E 07 R 10 34 0 6 MC G TA BL ET LE 68 10 12 02 60 30 WA 29 AR Ac VE 18 -0 -3 .0 LG 09 TH ti TI 00 1- - 00 RE 96 UR ve RA 11 20 20 EN 5 CE 41 09 09 # TO TA 6 DD M 07 75 34 0 6 MG TA BL ET FL 00 12 12 00 15 13 WA 29 YA Ac UC 17 -2 -3 .0 LG 42 ZI ti ON 25 3- 1- 00 RE 24 GI ve AZ 41 20 20 EN 4 OL 14 09 09 # NA E 6 DA 10 07 A 0 34 MG 6 TA BL ET 00 01 12 05 18 28 NU 32 FI Ac 05 -0 -1 4. FA 08 LI ti 37 7- 7- 00 CT 2 PO ve 59 20 20 0 OR 62 09 09 CH 0 IN C AL EX AN DR A H VA 00 11 12 00 14 7 VT 29 KA Ac LT 17 -3 -1 .0 LG 30 LF ti RE 30 0- 7- 00 RE 75 ve X 56 20 20 EN 7 1 50 09 09 # VA GM 4 NA 07 C CA 34 PL 6 ET 00 08 12 04 28 28 VT 28 No Ac 43 -1 -1 .0 LG 77 t ti 00 5- 7- 00 RE 58 Av ve 53 20 20 EN 8 ai 01 09 09 # la 4 bl 07 e 34 6 FL 00 11 12 00 12 10 WA 29 YA Ac UC 17 -2 -0 .0 LG 27 ZI ti ON 25 3- 3- 00 RE 67 GI ve AZ 41 20 20 EN 1 OL 14 09 09 # NA E 6 DA 10 07 A 0 34 MG 6 TA BL ET LE 00 05 12 05 30 30 WA 28 RO Ac VO 52 -1 -0 .0 LG 55 SE ti TH 71 3- 3- 00 RE 67 ve YR 34 20 20 EN 9 BUCKNER OX 51 09 09 # SA IN 0 N E 07 R 10 34 0 6 MC G TA BL ET LE 68 10 12 01 60 30 WA 29 AR Ac VE 18 -0 -0 .0 LG 09 TH ti TI 00 1 3 00 RE 96 UR ve RA 11 20 20 EN 5 CE 41 09 09 # TO TA 6 DD M 07 75 34 0 6 MG TA BL ET 00 08 11 03 28 28 WA 28 No Ac 43 -1 -1 .0 LG 77 t ti 00 00 RE 58 Av ve 53 20 20 EN 8 ai 01 09 09 # la 4 bl 07 e 34 6 CH 00 11 11 00 30 30 WA 29 JA Ac LO 37 -0 -1 .0 LG 17 CK ti RO 80 00 RE 63 SO ve TH 15 20 20 EN 6 N IA 00 09 09 # EL ZI 1 IZ DE 07 AB 34 ET 25 6 H 0 C MG TA BL ET MS 00 08 11 01 60 30 WA 28 YA Ac ED 59 -1 -1 .0 LG 77 ZI ti NI 15 RE 12 GI ve SO 44 20 20 EN 1 NE 20 09 09 # NA 5 DA 10 07 A 34 MG 6 TA BL ET FL 00 09 11 01 14 13 WA 28 YA Ac UC 17 -2 -1 .0 LG 95 ZI ti ON 25 RE 15 GI ve AZ 41 20 20 EN 5 OL 14 09 09 # NA E 6 DA 10 07 A 0 34 MG 6 TA BL ET RA 00 05 11 02 30 30 WA 28 YA Ac PA 00 -2 -1 .0 LG 38 ZI ti MU 81 RE 81 GI ve NE 04 20 20 EN 3 2 20 09 09 # NA 5 DA MG 07 A 34 TA 6 BL ET PE 00 11 11 00 40 10 WA 29 No Ac NI 09 -1 -1 .0 LG 22 t ti CI 31 00 RE 82 Av ve LL 17 20 20 EN 8 ai IN 41 09 09 # la 0 bl VK 07 e 34 50 6 0 MG TA BL ET 00 11 11 00 20 3 WA 29 No Ac 59 -1 -1 .0 LG 22 t ti 10 00 RE 82 Av ve 34 20 20 EN 9 ai 90 09 09 # la 5 bl 07 e 34 6 LE 00 05 11 04 30 30 WA 28 RO Ac VO 52 -1 -0 .0 LG 55 SE ti TH 71 3 5 00 RE 67 ve YR 34 20 20 EN 9 BUCKNER OX 51 09 09 # SA IN 0 N E 07 R 10 34 0 6 MC G TA BL ET LE 68 10 11 00 60 30 WA 29 AR Ac VE 18 -0 -0 .0 LG 09 TH ti TI 00 1- 5- 00 RE 96 UR ve RA 11 20 20 EN 5 CE 41 09 09 # TO TA 6 DD M 07 75 34 0 6 MG TA BL ET 00 01 10 18 [...] la 4 bl 07 e 34 6 00 02 10 04 18 21 NU [...] G TA BL ET LE 00 03 10 04 60 30 VT 28 GI Ac VE 37 -2 -0 .0 LG 46 LB ti TI 85 3- 8- 00 RE 19 ER ve RA 61 20 20 EN 2 T CE 77 09 09 # DO TA 8 NA M 07 LD 75 34 L 0 6 MG TA BL ET FL 00 09 10 00 14 13 VT 28 YA Ac UC 17 -2 -0 .0 LG 95 ZI ti ON 25 1- 8- 00 RE 15 GI ve AZ 41 20 20 EN 5 OL 14 09 09 # NA E 6 DA 10 07 A 0 34 MG 6 TA BL ET 00 08 09 01 [...] G TA BL ET LE 00 03 08 03 60 30 WA 28 GI Ac VE 37 -2 -2 .0 LG 46 LB ti TI 85 3- 7- 00 RE 19 ER ve RA 61 20 20 EN 2 T CE 77 09 09 # DO TA 8 NA M 07 LD 75 34 L 0 6 MG TA BL ET MS 00 08 08 00 60 30 WA 28 YA Ac ED 59 -1 -2 .0 LG 77 ZI ti NI 15 4- 7- 00 RE 12 GI ve SO 44 20 20 EN 1 NE 20 09 09 # NA 5 DA 10 07 A 34 MG 6 TA BL ET 00 08 08 00 28 28 WA 28 No Ac 43 -1 -2 .0 LG 77 t ti 00 5- 7- 00 RE 58 Av ve 53 20 20 EN 8 ai 01 09 09 # la 4 bl 07 e 34 6 LE 00 05 08 01 30 30 WA 28 RO Ac VO 52 -1 -1 .0 LG 55 SE ti TH 71 3- 3- 00 RE 67 ve YR 34 20 20 EN 9 BUCKNER OX 51 09 09 # SA IN 0 N E 07 R 10 34 0 6 MC G TA BL ET 00 02 08 03 18 21 NU 32 FI Ac 05 -0 -1 4. FA 08 LI ti 37 8- 3- 00 CT 2 PO ve 59 20 20 0 OR 62 08 09 CH 0 IN C AL EX AN DR A H LE 00 03 08 02 60 30 WA 28 AR Ac VE 37 -2 -1 .0 LG 46 TH ti TI 85 3- 3- 00 RE 19 UR ve RA 61 20 20 EN 2 CE 77 09 09 # TO TA 8 DD M 07 75 34 0 6 MG TA BL ET MS 00 10 07 01 60 30 WA 28 YA Ac ED 59 -0 -3 .0 LG 43 ZI ti NI 15 1- 0- 00 RE 36 GI ve SO 44 20 20 EN 9 NE 20 08 09 # NA 5 DA 10 07 A 34 MG 6 TA BL ET LE 00 05 07 00 30 30 WA 28 RO Ac VO 52 -1 -1 .0 LG 55 SE ti TH 71 3- 6- 00 RE 67 ve YR 34 20 20 EN 9 BUCKNER OX 51 09 09 # SA IN 0 N E 07 R 10 34 0 6 MC G TA BL ET YA 50 07 07 00 28 28 WA 28 AP Ac Z 41 -1 -1 .0 LG 61 PI ti 28 90 0- 6- 00 RE 43 AH ve 40 20 20 EN 9 TA 50 09 09 # LE BL 3 SL ET 07 IE 34 A 6 LE 00 03 07 01 60 30 WA 28 AR Ac VE 37 -2 -1 .0 LG 46 TH ti TI 85 3- 6- 00 RE 19 UR ve RA 61 20 20 EN 2 CE 77 09 09 # TO TA 8 DD M 07 75 34 0 6 MG TA BL ET 00 02 07 02 18 21 NU 32 FI Ac 05 -0 -1 4. FA 08 LI ti 37 8- 6- 00 CT 2 PO ve 59 20 20 0 OR 62 08 09 CH 0 IN C AL EX AN DR A H RA 00 05 07 01 30 30 WA 28 YA Ac PA 00 -2 -1 .0 LG 38 ZI ti MU 81 1- 6- 00 RE 81 GI ve NE 04 20 20 EN 3 2 20 09 09 # NA 5 DA MG 07 A 34 TA 6 BL ET 00 04 06 01 90 30 CV 48 YA Ac 04 -0 -1 .0 S 99 ZI ti 50 8- 8- 00 PH 71 GI ve 34 20 20 AR 66 09 09 MA NA 0 CY DA A #5 43 7 MS 00 10 06 00 60 30 WA 28 YA Ac ED 59 -0 -1 .0 LG 43 ZI ti NI 15 1- 8- 00 RE 36 GI ve SO 44 20 20 EN 9 NE 20 08 09 # NA 5 DA 10 07 A 34 MG 6 TA BL ET LE 00 03 06 00 60 30 WA 28 AR Ac VE 37 -2 -1 .0 LG 46 TH ti TI 85 3- 8- 00 RE 19 UR ve RA 61 20 20 EN 2 CE 77 09 09 # TO TA 8 DD M 07 75 34 0 6 MG TA BL ET RA 00 05 06 [...] 0 43 MG 7 TA BL ET MS 00 10 05 01 60 30 CV [...] 4 CY bl e #5 43 7 CA 00 04 04 00 48 30 CV 48 YA Ac LC 09 -0 -2 0. S 99 ZI ti IT 30 8- 3- 00 PH 72 GI ve RI 65 20 20 0 AR OL 80 09 09 MA NA 1 CY DA 0. A 5 #5 MC 43 G 7 CA PS UL E 00 04 04 00 90 30 CV 48 YA Ac 04 -0 -2 .0 S 99 ZI ti 50 8- 3- 00 PH 71 GI ve 34 20 20 AR 66 09 09 MA NA 0 CY DA A #5 43 7 FL 68 03 04 00 15 14 CV 48 YA Ac UC 46 -2 -0 .0 S 83 ZI ti ON 20 4 9 PH 51 GI ve AZ 10 20 20 AR OL 43 09 09 MA NA E 0 CY DA 20 A 0 #5 MG 43 7 TA BL ET LE 00 03 04 00 60 30 CV 48 GI Ac VE 37 -2 -0 .0 S 82 LB ti TI 85 3- 9- 00 PH 99 ER ve RA 61 20 20 AR T CE 77 09 09 MA DO TA 8 CY NA M LD 75 #5 L 0 43 MG 7 TA BL ET 00 02 04 00 18 28 NU [...] AL EX AN DR A H 00 09 04 02 28 28 CV [...] S 43 t ti TH 81 7- 6- 00 PH 83 Av ve YR 80 20 20 AR ai OX 90 08 09 MA la IN 1 CY bl E e 10 #5 0 43 MC 7 G TA BL ET 00 02 02 03 18 28 NU 20 FI Ac 05 -0 -2 4. FA 86 LI ti 37 8- 6- 00 CT 1 PO ve 59 20 20 0 OR 62 08 09 CH 0 IN C AL EX AN DR A H 02 02 00 18 28 NU 30 FI Ac 05 -0 -2 4. FA 32 LI ti 37 8- 6- 00 CT 2 PO ve 59 20 20 0 OR 62 08 09 CH 0 IN C AL EX AN DR A H 02 02 00 18 28 NU 20 FI Ac 05 -0 -2 4. FA 86 LI ti 37 8- 6- 00 CT 1 PO ve 59 20 20 0 OR 62 08 09 CH 0 IN C AL EX AN DR A H 02 02 02 18 28 NU 20 [...] C AL EX AN DR A H MS 00 10 02 00 60 30 CV [...] 20 AR OL 23 08 08 MA VA E 0 CY NA 10 C 0 #5 MG 43 7 TA BL ET Procedures Procedure DOS Code Location Performer Comment DRUG TEST [id number] [facility] DEFINITV [address] ID METH P HEALTHCAR HEALTHCAR DAY 1- E EDGE E EDGE DRUG CL APPLICATI 52372 [facility] MODALITY TIC TIC 1/> AREAS CENTER CENTER HOT/COLD PACKS [facility] 75821 [facility] [facility] T[facility] 7 [facility] MANIPULAT TIC BEN TX CENTER SPINAL 3-[address] [facility] [address] [facility] PRSMV 7 [facility] COLES DIR OPTICAL PHYSICIAN OBS PER S DAY DRUG TEST [address] PRSMV 7 [facility] INSTRMNT CHEMISTRY HEALTHCAR HEALTHCAR E EDGE E EDGE ANALYZERS THERAPEUT 03163 [facility] 7 [facility] AREAS TIC EACH 15 CENTER MIN EXERCISES APPL 05623 [facility] MODALITY 7 [facility]AC 1/> AREAS TIC TRACTION CENTER MECHANICA L APPL 90111 [facility] MODALITY 7 CHIROPRAC 1/> AREAS TIC ELEC CENTER STIMJ UNATTENDE D CHIROPRAC 76989 [facility] T[facility] 7 [facility] MANIPLTV TIC TX CENTER EXTRASPIN AL 1/> REGION CHIROPRAC 42299 [facility] TIC 7 [facility]AC MANIPLTV TIC TX CENTER EXTRASPIN AL 1/> REGION THERAPEUT 88530 [facility] IC PX 1/> 7 [facility] AREAS TIC TIC EACH 15 CENTER CENTER MIN EXERCISES CHIROPRAC 89458 [facility] TIC 7 CH[facility]OPRAC MANIPULAT TIC BEN TX CENTER SPINAL 3-4 REGIONS CHIROPRAC 71109 [facility] T[facility] 7 CH[facility]OPRAC MANIPULAT TIC BEN TX CENTER SPINAL 3-4 [facility] APPLICATI 26684 [facility] CHIROP[facility] MODALITY TIC TIC 1/> AREAS CENTER CENTER HOT/COLD PACKS THERAPEUT 21983 [facility] CARTWRIGHT IC PX 1/> 7 [facility] AREAS TIC EACH 15 CENTER MIN EXERCISES CHIROPRAC 26265 [facility] TIC 7 CHIROPRAC MANIPLTV TIC TX CENTER EXTRASPIN AL 1/> REGION APPL 78275 [facility] MODALITY 7 CHIROPRAC 1/> AREAS TIC ELEC CENTER STIMJ UNATTENDE D APPL 09457 [facility] MODALITY 7 CHIROPRAC 1/> AREAS TIC TRACTION CENTER MECHANICA L APPL 76727 [facility] FELICIANO MODALITY 7 CHIROPRAC 1/> AREAS TIC TRACTION CENTER MECHANICA L CHIROPRAC 72675 [facility] TIC 7 CHIROPRAC MANIPLTV TIC TX CENTER EXTRASPIN AL 1/> REGION APPLICATI 58665 [facility] HULL[facility]JRAY ON 7 [facility] CHIROPRAC MODALITY TIC TIC 1/> AREAS CENTER CENTER HOT/COLD PACKS MANUAL 10254 [facility] 7 [facility]AC TQS 1/> TIC [facility] CENTER EACH 15 MINUTES CH[facility]OPRAC 47112 [facility] F[facility] TIC 7 CH[facility]OPRAC MANIPULAT TIC BEN TX CENTER SPINAL 3-4 [facility]IONS CHIROPRAC 22952 [facility] F[facility] TIC 7 CHIROPRAC MANIPULAT TIC BEN TX CENTER SPINAL 3-4 [facility]IONS MANUAL 96908 [facility]ERAPY 7 CHIROPRAC TQS 1/> TIC [facility] CENTER EACH 15 MINUTES APPLICATI 44709 [facility] FEL[facility]IAN[facility] ON 7 [facility] MODALITY TIC 1/> AREAS CENTER HOT/COLD PACKS [facility]OP[facility]AC 61850 [facility] PARKER TIC 7 CHIROPRAC MANIPLTV TIC TX CENTER EXTRASPIN AL 1/> REGION APPL 50357 [facility] MODALITY 7 CHIROPRAC CHIROPRAC 1/> AREAS TIC TIC TRACTION CENTER CENTER MECHANICA L APPL 91109 [facility] [facility] MODALITY 7 CHIROPRAC 1/> AREAS TIC TRACTION CENTER MECHANICA L APPL 42772 [facility] [facility] MODALITY 7 CHIROPRAC 1/> AREAS TIC ELEC CENTER STIMJ UNATTENDE D CH[facility]OPRAC 28177 [facility] [facility] TIC 7 CHIROPRAC MANIPLTV TIC TX CENTER EXTRASPIN AL 1/> REGION APPLICATI 23667 [facility] 7 [facility] CHIROP[facility] MODALITY TIC TIC 1/> AREAS CENTER CENTER HOT/COLD PACKS MANUAL 11235 [facility] 7 CHIROPRAC TQS 1/> TIC [facility] CENTER [place] [address] [place] [address] [place] [facility] 1/> AREAS 7 CHIROPRAC EACH 15 TIC MINUTES CENTER MASSAGE CHIROPRAC 03239 [facility] [facility] TIC 7 CHIROPRAC MANIPULAT TIC BEN TX CENTER SPINAL 3-4 REGIONS CHIROPRAC 50579 [place] TIC 7 CHIROPRAC MANIPULAT TIC BEN TX CENTER SPINAL 3-4 [facility]IONS MANUAL 53246 [facility] 7 CHIROPRAC TQS 1/> TIC [facility] CENTER EACH 15 MINUTES APPLICATI 15649 [facility] 7 [facility] CHIROP[facility] MODALITY TIC TIC 1/> AREAS CENTER CENTER HOT/COLD PACKS CHIROPRAC 10900 [facility] TIC 7 CHIROPRAC MANIPLTV TIC TX CENTER EXTRASPIN AL 1/> REGION APPL 86888 [facility] MODALITY 7 CHIROPRAC 1/> AREAS TIC ELEC CENTER STIMJ UNATTENDE D APPL 81318 [facility] MODALITY 7 CHIROPRAC 1/> AREAS TIC TRACTION CENTER MECHANICA L APPL 84040 [facility] MODALITY 7 CHIROPRAC CHIROPRAC 1/> AREAS TIC TIC TRACTION CENTER CENTER MECHANICA L APPL 13832 [facility] [facility] MODALITY 7 CHIROPRAC 1/> AREAS TIC ELEC CENTER STIMJ UNATTENDE D [facility]IROPRAC 43927 [facility] TIC 7 CHIROPRAC MANIPLTV TIC TX CENTER EXTRASPIN AL 1/> REGION APPLICATI 77356 [facility] FELICIANO ON 7 CHIROPRAC MODALITY TIC 1/> AREAS CENTER [place] [address] [facility] PARKER 1/> AREAS 7 CHIROPR[facility] EACH 15 TIC MINUTES CENTER MASSAGE CHIROPRAC 96625 [facility] PARKER TIC 7 CHIROPRAC MANIPULAT TIC [facility] C[facility] SPINAL 3-4 REGIONS CHIROPRAC 74542 [facility] PARKER TIC 7 CHIROPRAC MANIPULAT TIC [facility] SPINAL 3-[place] [address] LAN[facility] PARKER 1/> AREAS 7 CHIROPRAC EACH 15 TIC MINUTES CENTER MASSAGE APPLICATI 27277 [facility] SHETTY ON 7 CHIROPRAC MODALITY TIC 1/> AREAS CENTER HOT/COLD PACKS CHIROPRAC 65698 [facility] T[facility] 7 CHIROPRAC MANIPLTV TIC TX CENTER EXTRASPIN AL 1/> REGION APPL 15511 [facility] MODALITY 7 CHIROPRAC 1/> AREAS TIC TRACTION CENTER MECHANICA L APPL 46797 [facility] FELICIANO MODALITY 7 CHIROPRAC 1/> AREAS TIC ELEC CENTER STIMJ UNATTENDE D APPL 77935 [facility] MODALITY 7 CHIROPRAC 1/> AREAS TIC ELEC CENTER STIMJ UNATTENDE D APPL 02836 [facility] P[facility] MODALITY 7 CHIROPRAC 1/> AREAS TIC TRACTION CENTER MECHANICA L CHIROPRAC 20920 [facility] FELICIANO TIC 7 CHIROPRAC MANIPLTV TIC TX CENTER EXTRASPIN AL 1/> REGION APPLICATI 85373 [facility] FELICIANO ON 7 CHIROPRAC MODALITY TIC 1/> AREAS CENTER [place] [address] [facility] 1/> AREAS 7 CHIROPRAC EACH 15 TIC MINUTES CENTER MASSAGE CHIROPRAC 21119 [facility] FELICIANO TIC 7 CHIROPRAC MANIPULAT TIC BEN [place] CENTER SPINAL 3-4 REGIONS THERAPEUT 64310 [place]O [place] PX 1/> 7 CHIROPRAC AREAS TIC EACH 15 CENTER MIN EXERCISES CHIROPRAC 36466 [facility] LUKING TIC 7 CHIROPRAC MANIPULAT TIC [facility] [place] [facility] SPINAL 3-[place] [address] LANNY LUKING 1/> AREAS 7 CHIROPRAC EACH 15 TIC MINUTES CENTER MASSAGE CHIROPRAC 17193 [facility] TIC 7 CHIROPRAC MANIPLTV TIC TX CENTER EXTRASPIN AL 1/> REGION APPL 98038 [facility] MODALITY 7 CHIROPRAC 1/> AREAS TIC TRACTION CENTER MECHANICA L APPL 46559 [facility] MODALITY 7 CHIROPRAC 1/> AREAS TIC ELEC CENTER STIMJ UNATTENDE D SELF-CARE 06367 [facility] PHILLIPS /HOME 7 CHIROPRAC MGMT TIC TRAINING CENTER EACH 15 MINUTES APPLICATI 72599 [facility] PHILLIPS ON 7 CHIROPRAC MODALITY TIC 1/> AREAS CENTER HOT/COLD PACKS APPLICATI 48910 [facility] PARKER ON 7 CHIROPRAC MODALITY TIC 1/> AREAS CENTER HOT/COLD PACKS SELF-CARE 48991 [facility] JODIE /HOME 7 CHIROPRAC MGMT TIC TRAINING CENTER EACH 15 MINUTES APPL 17722 [facility] P[facility]ER MODALITY 7 CHIROPRAC 1/> AREAS TIC ELEC CENTER STIMJ UNATTENDE D CHIROPRAC 32643 [facility] TIC 7 CHIROPRAC MANIPLTV TIC TX CENTER EXTRASPIN AL 1/> [place] [address] [facility] 1/> AREAS 7 CHIROPRAC EACH 15 TIC MINUTES CENTER MASSAGE CHIROPRAC 74727 [facility] FELICIANO TIC 7 CHIROPRAC MANIPULAT TIC BEN TX CENTER SPINAL 3-4 REGIONS NONEMERGE A0100 LKLP CAC BENNETTS NCY 6 INC TRANSPORT TRANSPORT REGION 9 ATION CO ATION; L TAXI CHIROPRAC 14920 [facility] BAÑUELOS TIC 6 CHIROPRAC MANIPULAT TIC BEN TX CENTER SPINAL 3-4 REGIONS THERAPEUT 86050 [facility] BAÑUELOS IC PX 1/> 6 CHIROPRAC AREAS TIC EACH 15 CENTER MIN EXERCISES CHIROPRAC 74396 [facility] LARSEN TIC 6 CHIROPRAC MANIPLTV TIC TX CENTER EXTRASPIN AL 1/> REGION CHIROPRAC 28570 [facility] BAÑUELOS TIC 6 CHIROPRAC MANIPLTV TIC TX CENTER EXTRASPIN AL 1/> REGION APPL 10650 [facility] 6 [facility] CHIROPRAC 1/> AREAS TIC TIC ELEC CENTER CENTER STIMJ UNATTENDE D THERAPEUT 36640 [facility] BAÑUELOS IC PX 1/> 6 CHIROPRAC AREAS TIC EACH 15 CENTER MIN EXERCISES CHIROPRAC 39683 [facility] BAÑUELOS TIC 6 CHIROPRAC MANIPULAT TIC [facility] [place] [facility] SPINAL 3-4 REGIONS COMPREHEN 72822 THE THE SIVE [address] [place] [address] PANEL COLLECTIO 21813 THE THE N VENOUS [address] [place] [address] VENIPUNCT URE HEMOGLOBI 17413 THE THE N [address] [place] [address] YVETTE A1C BLOOD 77773 THE THE COUNT [address] [place] [address] AUTOMATED CALCIUM 98612 THE THE IONIZED [address] [place] [address] [place] [address] THE THE LIPASE [address] [place] [address] [place] [address] THE THE PARATHORM [address] [place] [address] [place] [address] THE THE AMYLASE [address] [place] [address] [place] [address] THE THE FREE [address] [place] [address] [place] [address] THE THE THYROID [address] [place] [address] NG HORMONE TSH THERAPEUT 20453 [facility] BA[facility]UELOS IC PX 1/> 6 CHIROPRAC AREAS TIC EACH 15 CENTER MIN EXERCISES CHIROPRAC 45821 [facility] EDDA TIC 6 [facility] MANIPULAT TIC [facility] [place] [facility] SPINAL 3-4 REGIONS APPL 48359 [facility] MODALITY 6 CHIROPRAC CHIROPRAC 1/> AREAS TIC TIC TRACTION CENTER CENTER MECHANICA L CHIROPRAC 87719 [facility] BA[facility]OS TIC 6 CHIROPRAC MANIPLTV TIC TX CENTER EXTRASPIN AL 1/> REGION CHIROPRAC 91577 [facility] BA[facility]UELOS TIC 6 CHIROPRAC MANIPLTV TIC TX CENTER EXTRASPIN AL 1/> REGION APPL 52121 [facility] MODALITY 6 CHIROPRAC CHIROPRAC 1/> AREAS TIC TIC TRACTION CENTER CENTER MECHANICA L CHIROPRAC 35975 [facility] BAÑUELOS TIC 6 CHIROPRAC MANIPULAT TIC [facility] SPINAL 3-4 REGIONS THERAPEUT 28261 [facility] BAÑUELOS IC PX 1/> 6 CHIROPRAC AREAS TIC EACH 15 CENTER MIN EXERCISES THERAPEUT 46238 [facility] BAÑUELOS IC PX 1/> 6 CHIROPRAC AREAS TIC EACH 15 CENTER MIN EXERCISES CHIROPRAC 44568 [facility] BAÑUELOS TIC 6 CHIROPRAC MANIPULAT TIC [facility] [place] [facility] SPINAL 3-4 REGIONS APPL 85654 [facility] MODALITY 6 CHIROPRAC CHIROPRAC 1/> AREAS TIC TIC TRACTION CENTER CENTER MECHANICA L APPL 81459 [facility] BAÑUELOS MODALITY 6 CHIROPRAC 1/> AREAS TIC ELEC CENTER STIMJ UNATTENDE D CHIROPRAC 10343 [facility] BA[facility]UELOS TIC 6 CHIROPRAC MANIPLTV TIC TX CENTER EXTRASPIN AL 1/> REGION CHIROPRAC 23913 [facility] BA[facility]UELOS TIC 6 CHIROPRAC MANIPLTV TIC TX CENTER EXTRASPIN AL 1/> REGION SELF-CARE 83328 [facility] BAÑUELOS /HOME 6 CHIROPRAC MGMT TIC TRAINING CENTER EACH 15 MINUTES CHIROPRAC 33873 [facility] BA[facility]UELOS TIC 6 CHIROPRAC MANIPULAT TIC [facility] [place] [facility] SPINAL 3-4 REGIONS THERAPEUT 18357 [facility]/> 6 CH[facility]OPRAC CHIROPRAC AREAS TIC TIC EACH 15 CENTER CENTER MIN EXERCISES SURGICAL L3260 ADVANCED ADVANCED BOOT/SHOE 6 TECHNOLOG TECHNOLOG EACH IES INC IES INC RADIOLOGI 84853 [place] [facility] C 6 MEDICAL EXAMINATI IMAGING ON FOOT 2 ASS VIEWS THERAPEUT 40220 [facility]EL[facility] IC PX 1/> 6 CHIROPRAC AREAS TIC EACH 15 CENTER MIN EXERCISES CHIROPRAC 04241 [facility] BAÑUELOS TIC 6 CHIROPRAC MANIPULAT TIC [facility] [place] [facility] SPINAL 3-4 REGIONS APPL 45798 [facility] LANNY BERNSTEIN 6 CHIROPRAC CHIROPRAC 1/> AREAS TIC TIC ELEC CENTER CENTER STIMJ UNATTENDE D CHIROPRAC 14190 [facility] BAÑUELOS TIC 6 CHIROPRAC MANIPLTV TIC TX CENTER EXTRASPIN AL 1/> REGION CHIROPRAC 09319 [facility] EDDA TIC 6 CHIROPRAC GAR MANIPLTV TIC TX CENTER EXTRASPIN AL 1/> REGION THERAPEUT 71574 [facility] LANNY IC PX 1/> 6 CHIROPRAC CHIROPRAC AREAS TIC TIC EACH 15 CENTER CENTER MIN EXERCISES CHIROPRAC 30170 [facility] BAÑUELOS TIC 6 CHIROPRAC GAR MANIPULAT TIC [facility] SPINAL 3-4 REGIONS THERAPEUT 13265 [facility] EDDA IC PX 1/> 6 CHIROPRAC AREAS TIC EACH 15 CENTER MIN EXERCISES CHIROPRAC 12491 [facility] BAÑUELOS TIC 6 CHIROPRAC MANIPULAT TIC [facility] SPINAL 3-4 REGIONS CHIROPRAC 97366 [facility] EDDA TIC 6 CHIROPRAC MANIPLTV TIC TX CENTER EXTRASPIN AL 1/> REGION CHIROPRAC 07273 [facility] KURTISNJRAY TIC 6 CHIROPRAC CHIROPRAC MANIPLTV TIC TIC TX CENTER CENTER EXTRASPIN AL 1/> REGION APPL 35577 [facility] EDDA MODALITY 6 CHIROPRAC 1/> AREAS TIC TRACTION CENTER MECHANICA L CHIROPRAC 49434 [facility] BAÑUELOS TIC 6 CHIROPRAC MANIPULAT TIC [facility] SPINAL 3-4 REGIONS THERAPEUT 23617 [facility] RILEY IC PX 1/> 6 CHIROPRAC AREAS TIC EACH 15 CENTER MIN EXERCISES THERAPEUT 56392 [facility]/> 6 CHIROPRAC CHIROPRAC AREAS TIC TIC EACH 15 CENTER CENTER MIN EXERCISES CHIROPRAC 56743 [facility] BAÑUELOS TIC 6 CHIROPRAC MANIPULAT TIC [facility] SPINAL 3-4 REGIONS CHIROPRAC 01862 [facility] BAÑUELOS TIC 6 CHIROPRAC MANIPLTV TIC TX CENTER EXTRASPIN AL 1/> REGION COLLECTIO 18677 [facility] N VENOUS 6 Y Y BLOOD [facility] VENIPUNCT URE BLOOD 77123 [facility] COUNT 6 Y Y COMPLETE HOSPITAL HOSPITAL AUTOMATED BASIC 09304 [facility] METABOLIC 6 Y Y PANEL HOSPITAL HOSPITAL CALCIUM TOTAL PROTHROMB 44024 [facility] IN TIME 6 Y Y HOSPITAL [facility] THROMBOPL 92801 [facility] ASTIN 6 Y Y TIME [facility]OSP[facility] PARTIAL PLASMA/WH OLE BLOOD CHIROPRAC 86205 [facility] BAÑUELOS TIC 6 CHIROPRAC GAR MANIPULAT TIC [facility] SPINAL 3-4 REGIONS MANUAL 35336 [facility] THERAPY 6 CHIROPRAC CHIROPRAC TQS 1/> TIC TIC REGIONS CENTER CENTER EACH 15 MINUTES CHIROPRAC 97495 [facility] EDDA TIC 6 CHIROPRAC GAR MANIPLTV TIC TX CENTER EXTRASPIN AL 1/> REGION CHIROPRAC 94386 [facility] EDDA TIC 6 CHIROPRAC MANIPLTV TIC TX CENTER EXTRASPIN AL 1/> REGION CHIROPRAC 26874 [facility] BAÑUELOS TIC 6 CHIROPRAC MANIPULAT TIC [facility] SPINAL 1-2 REGIONS MANUAL 65818 [facility] EDDA THERAPY 6 CHIROPRAC TQS 1/> TIC REGIONS CENTER EACH 15 MINUTES THERAPEUT 45935 [facility] IC PX 1/> 6 CHIROPRAC CHIROPRAC AREAS TIC TIC EACH 15 CENTER CENTER MIN EXERCISES THERAPEUT 98607 [facility] IC PX 1/> 6 CHIROPRAC CHIROPRAC AREAS TIC TIC EACH 15 CENTER CENTER MIN EXERCISES CHIROPRAC 66082 [facility] TIC 6 CHIROPRAC GAR MANIPULAT TIC [facility] SPINAL 3-4 REGIONS CHIROPRAC 54107 [facility] BAÑUELOS TIC 6 CHIROPRAC GAR MANIPLTV TIC TX CENTER EXTRASPIN AL 1/> REGION CHIROPRAC 15485 [facility] BAÑUELOS TIC 6 CHIROPRAC MANIPLTV TIC TX CENTER EXTRASPIN AL 1/> REGION APPL 80290 [facility] HULLNJRAY MODALITY 6 CHIROPRAC CHIROPRAC 1/> AREAS TIC TIC TRACTION CENTER CENTER MECHANICA L THERAPEUT 11965 [facility] BA[facility]ELOS IC PX 1/> 6 CHIROPRAC AREAS TIC EACH 15 CENTER MIN EXERCISES CHIROPRAC 12790 [facility] BAÑUELOS TIC 6 CHIROPRAC MANIPULAT TIC [facility] SPINAL 3-4 REGIONS CHIROPRAC 62009 [facility] BA[facility] TIC 6 CHIROPRAC GAR MANIPULAT TIC [facility] SPINAL 3-4 REGIONS THERAPEUT 97227 [facility] BAÑUELOS IC PX 1/> 6 CHIROPRAC GAR AREAS TIC EACH 15 CENTER MIN EXERCISES APPL 51212 [facility] HULLNJRAY MODALITY 6 CHIROPRAC CHIROPRAC 1/> AREAS TIC TIC TRACTION CENTER CENTER MECHANICA L CHIROPRAC 19069 [facility] TIC 6 CHIROPRAC GAR MANIPLTV TIC TX CENTER EXTRASPIN AL 1/> REGION CHIROPRAC 53499 [facility] BA[facility] TIC 6 CHIROPRAC GAR MANIPLTV TIC TX CENTER EXTRASPIN AL 1/> REGION APPL 27824 [facility] MODALITY 6 CHIROPRAC CHIROPRAC 1/> AREAS TIC TIC TRACTION CENTER CENTER MECHANICA L THERAPEUT 89317 [facility] BA[facility]UEL[facility] IC PX 1/> 6 CHIROPRAC GAR AREAS TIC EACH 15 CENTER MIN EXERCISES CHIROPRAC 43938 [facility] BA[facility]UEL[facility] TIC 6 CHIROPRAC GAR MANIPULAT TIC [facility] SPINAL 3-4 REGIONS CHIROPRAC 61121 [facility] BA[facility]UELOS TIC 6 CHIROPRAC MANIPULAT TIC [facility] SPINAL 3-4 REGIONS MANUAL 79856 [facility] BAÑUELOS THERAPY 6 CHIROPRAC TQS 1/> TIC REG[facility] CENTER EACH 15 MINUTES THERAPEUT 11902 [facility] CA IC PX 1/> 6 CHIROPRAC CHIROPRAC AREAS TIC TIC EACH 15 CENTER CENTER MIN EXERCISES CHIROPRAC 76843 [facility] BAÑUELOS TIC 6 CHIROPRAC MANIPLTV TIC TX CENTER EXTRASPIN AL 1/> REGION CHIROPRAC 73748 [facility] BAÑUELOS TIC 6 CHIROPRAC MANIPLTV TIC TX CENTER EXTRASPIN AL 1/> REGION THERAPEUT 13611 [facility] HULLNJRAY IC PX 1/> 6 CHIROPRAC CHIROPRAC AREAS TIC TIC EACH 15 CENTER CENTER MIN EXERCISES CHIROPRAC 76278 [facility] BAÑUELOS TIC 6 CHIROPRAC MANIPULAT TIC [facility] SPINAL 3-4 REGIONS MANUAL 09589 [facility] BAÑUELOS THERAPY 6 CHIROPRAC TQS 1/> TIC REGIONS CENTER EACH 15 MINUTES MANUAL 79410 [facility] BA[facility]UELOS THERAPY 6 CHIROPRAC TQS 1/> TIC REGIONS CENTER EACH 15 MINUTES CHIROPRAC 58185 [facility] BAÑUELOS TIC 6 CHIROPRAC MANIPULAT TIC [facility] SPINAL 3-4 REGIONS THERAPEUT 40249 [facility] HULLNJRAY IC PX 1/> 6 CHIROPRAC CHIROPRAC AREAS TIC TIC EACH 15 CENTER CENTER MIN EXERCISES CHIROPRAC 49371 [facility] BAÑUELOS TIC 6 CHIROPRAC MANIPLTV TIC TX CENTER EXTRASPIN AL 1/> REGION CHIROPRAC 54701 [facility] BAÑUELOS TIC 6 CHIROPRAC MANIPLTV TIC TX CENTER EXTRASPIN AL 1/> REGION THERAPEUT 68071 [facility]/> 6 CHIROPRAC CHIROPRAC AREAS TIC TIC EACH 15 CENTER CENTER MIN EXERCISES CHIROPRAC 86349 [facility] BAÑUELOS TIC 6 CHIROPRAC MANIPULAT TIC [facility] SPINAL 3-4 REGIONS MANUAL 45226 [facility] ED[facility] THERAPY 6 CHIROPRAC TQS 1/> TIC REGIONS CENTER EACH 15 MINUTES MANUAL 24478 [facility] EDDA THERAPY 6 CHIROPRAC GAR TQS 1/> TIC REGIONS CENTER EACH 15 MINUTES THERAPEUT 84403 [facility] HULLNJRAY IC PX 1/> 6 CHIROPRAC CHIROPRAC AREAS TIC TIC EACH 15 CENTER CENTER MIN EXERCISES CHIROPRAC 09846 [facility] BAÑUELOS TIC 6 CHIROPRAC GAR MANIPULAT TIC [facility] SPINAL 3-4 REGIONS CHIROPRAC 79653 [facility] BAÑUELOS TIC 6 CHIROPRAC GAR MANIPLTV TIC TX CENTER EXTRASPIN AL 1/> REGION CHIROPRAC 89369 [facility]NJ[facility] BAÑUELOS TIC 6 CHIROPRAC MANIPLTV TIC TX CENTER EXTRASPIN AL 1/> REGION CHIROPRAC 11202 [facility] BAÑUELOS TIC 6 CHIROPRAC MANIPULAT TIC [facility] SPINAL 1-2 REGIONS THERAPEUT 57249 [facility] IC PX 1/> 6 CHIROPRAC CHIROPRAC AREAS TIC TIC EACH 15 CENTER CENTER MIN EXERCISES MANUAL 07570 [facility] EDDA THERAPY 6 CHIROPRAC TQS 1/> TIC [facility] CENTER EACH 15 MINUTES CHIROPRAC 37298 [facility] BAÑUELOS TIC 6 CHIROPRAC GAR MANIPULAT TIC [facility] SPINAL 3-4 REGIONS CHIROPRAC 91373 [facility] BAÑUELOS TIC 6 CHIROPRAC GAR MANIPLTV TIC TX CENTER EXTRASPIN AL 1/> REGION CHIROPRAC 31903 [facility] BAÑUELOS TIC 6 CHIROPRAC GAR MANIPLTV TIC TX CENTER EXTRASPIN AL 1/> REGION CHIROPRAC 07600 [facility] ASHLYRAY TIC 6 CHIROPRAC CHIROPRAC MANIPULAT TIC TIC [facility] CENTER SPINAL 3-4 REGIONS CHIROPRAC 79354 [facility] BAÑUELOS TIC 5 CHIROPRAC GAR MANIPULAT TIC [facility] SPINAL 1-2 REGIONS CHIROPRAC 47244 [facility] BAÑUELOS TIC 5 CHIROPRAC GAR MANIPULAT TIC [facility] SPINAL 1-2 REGIONS THERAPEUT 96302 [facility] EDDA IC PX 1/> 5 CHIROPRAC GAR AREAS TIC EACH 15 CENTER MIN EXERCISES CHIROPRAC 27755 [facility] BAÑUELOS TIC 5 CHIROPRAC GAR MANIPLTV TIC TX CENTER EXTRASPIN AL 1/> REGION CHIROPRAC 35472 [facility] CA TIC 5 CHIROPRAC CHIROPRAC MANIPLTV TIC TIC TX CENTER CENTER EXTRASPIN AL 1/> REGION CHIROPRAC 59031 [facility] CA TIC 5 CHIROPRAC CHIROPRAC MANIPULAT TIC TIC [facility] CENTER SPINAL 1-2 REGIONS THERAPEUT 44614 [facility] BAÑUELOS IC PX 1/> 5 CHIROPRAC GAR AREAS TIC EACH 15 CENTER MIN EXERCISES CHIROPRAC 41228 [facility] BAÑUELOS TIC 5 CHIROPRAC GAR MANIPULAT TIC [facility] SPINAL 3-4 REGIONS CHIROPRAC 91713 [facility] BA[facility]ELOS TIC 5 CHIROPRAC GAR MANIPLTV TIC TX CENTER EXTRASPIN AL 1/> REGION RADEX 05903 RADIOLOGY BRANDSER FOOT 5 SHEA COMPLETE ASSOCIATE MINIMUM 3 S OF NOTH VIEWS CHIROPRAC 01385 [facility] BA[facility]OS TIC 5 CHIROPRAC GAR MANIPLTV TIC TX CENTER EXTRASPIN AL 1/> REGION CHIROPRAC 55528 [facility] CA TIC 5 CHIROPRAC CHIROPRAC MANIPULAT TIC TIC [facility] CENTER SPINAL 1-2 REGIONS THERAPEUT 44644 [facility] BAÑUELOS IC PX 1/> 5 CHIROPRAC GAR AREAS TIC EACH 15 CENTER MIN EXERCISES THERAPEUT 80081 [facility] BAÑUELOS IC PX 1/> 5 CHIROPRAC GAR AREAS TIC EACH 15 CENTER MIN EXERCISES CHIROPRAC 35072 [facility] BAÑUELOS TIC 5 CHIROPRAC GAR MANIPULAT TIC [facility]ENTER SPINAL 1-2 REGIONS CHIROPRAC 46015 [facility] BAÑUELOS TIC 5 CHIROPRAC GAR MANIPLTV TIC TX CENTER EXTRASPIN AL 1/> REGION CHIROPRAC 04840 [facility] CA TIC 5 CHIROPRAC CHIROPRAC MANIPULAT TIC TIC [facility] CENTER SPINAL 1-2 REGIONS THERAPEUT 47514 [facility] BAÑUELOS IC PX 1/> 5 CHIROPRAC GAR AREAS TIC EACH 15 CENTER MIN EXERCISES CHIROPRAC 18346 [facility] BA[facility]ELOS TIC 5 CHIROPRAC GAR MANIPLTV TIC TX CENTER EXTRASPIN AL 1/> REGION THERAPEUT 38748 [facility]EL[facility] IC PX 1/> 5 CHIROPRAC GAR AREAS TIC EACH 15 CENTER MIN EXERCISES CHIROPRAC 33580 [facility] TIC 5 CHIROPRAC CHIROPRAC MANIPULAT TIC TIC [facility] CENTER SPINAL 1-2 REGIONS CHIROPRAC 90279 [facility] T[facility] 5 CHIROPRAC CHIROPRAC MANIPLTV TIC TIC TX CENTER CENTER EXTRASPIN AL 1/> REGION CHIROPRAC 46880 [facility] TIC 5 CHIROPRAC CHIROPRAC MANIPLTV TIC TIC TX CENTER CENTER EXTRASPIN AL 1/> REGION CHIROPRAC 57189 [facility] TIC 5 CHIROPRAC CHIROPRAC MANIPULAT TIC TIC [facility] CENTER SPINAL 1-2 REGIONS CHIROPRAC 23507 [facility] BA[facility]ELOS TIC 5 CHIROPRAC GAR MANIPLTV TIC TX CENTER EXTRASPIN AL 1/> REGION CHIROPRAC 55595 [facility] BA[facility]UELOS TIC 5 CHIROPRAC GAR MANIPULAT TIC [facility]ENTER SPINAL 1-2 REGIONS CHIROPRAC 14593 [facility] BAÑUELOS TIC 5 CHIROPRAC GAR MANIPLTV TIC TX CENTER EXTRASPIN AL 1/> REGION CHIROPRAC 19977 [facility] BA[facility]UELOS TIC 5 CHIROPRAC GAR MANIPULAT TIC [facility] SPINAL 1-2 REGIONS CHIROPRAC 01086 [facility] BA[facility]ELOS TIC 5 CHIROPRAC GAR MANIPULAT TIC [facility] SPINAL 1-2 REGIONS CHIROPRAC 96444 [facility] BA[facility]ELOS TIC 5 CHIROPRAC GAR MANIPLTV TIC TX CENTER EXTRASPIN AL 1/> REGION CHIROPRAC 21482 [facility] BA[facility]OS TIC 5 CHIROPRAC GAR MANIPLTV TIC TX CENTER EXTRASPIN AL 1/> REGION CHIROPRAC 88835 [facility] EDDA TIC 5 CHIROPRAC GAR MANIPULAT TIC [facility] SPINAL 1-2 REGIONS THERAPEUT 74703 [facility] BAÑUELOS IC PX 1/> 5 CHIROPRAC GAR AREAS TIC EACH 15 CENTER MIN EXERCISES THERAPEUT 90486 [facility] BAÑUELOS IC PX 1/> 5 CHIROPRAC GAR AREAS TIC EACH 15 CENTER MIN EXERCISES CHIROPRAC 15644 [facility] BAÑUELOS TIC 5 CHIROPRAC GAR MANIPULAT TIC [facility] CENTER SPINAL 1-2 REGIONS CHIROPRAC 47863 [facility] BAÑUELOS TIC 5 CHIROPRAC GAR MANIPLTV TIC TX CENTER EXTRASPIN AL 1/> REGION CHIROPRAC 50543 [facility] BAÑUELOS TIC 5 CHIROPRAC GAR MANIPULAT TIC [facility] CENTER SPINAL 1-2 REGIONS CHIROPRAC 91658 [facility] BAÑUELOS TIC 5 CHIROPRAC GAR MANIPLTV TIC TX CENTER EXTRASPIN AL 1/> REGION THERAPEUT 84143 [facility] BAÑUELOS IC PX 1/> 5 CHIROPRAC GAR AREAS TIC EACH 15 CENTER MIN EXERCISES THERAPEUT 45669 [facility] BAÑUELOS IC PX 1/> 5 CHIROPRAC GAR AREAS TIC EACH 15 CENTER MIN EXERCISES CHIROPRAC 76212 [facility] EDDA TIC 5 CHIROPRAC GAR MANIPLTV TIC TX CENTER EXTRASPIN AL 1/> REGION CHIROPRAC 01184 [facility] BAÑUELOS TIC 5 CHIROPRAC GAR MANIPULAT TIC B[facility] CENTER SPINAL 1-2 REGIONS CHIROPRAC 01050 [facility] BAÑUELOS TIC 5 CHIROPRAC GAR MANIPLTV TIC TX CENTER EXTRASPIN AL 1/> REGION CHIROPRAC 43015 [facility] BAÑUELOS TIC 5 CHIROPRAC GAR MANIPULAT TIC B[facility] CENTER SPINAL 1-2 REGIONS CHIROPRAC 32430 ASHLYRAY LANNY TIC 5 CHIROPRAC CHIROPRAC MANIPULAT TIC TIC [facility] CENTER SPINAL 1-2 REGIONS CHIROPRAC 12371 [facility]ISNAYA[facility] EDDA TIC 5 CHIROPRAC GAR MANIPLTV TIC TX CENTER EXTRASPIN AL 1/> REGION CHIROPRAC 27376 ASHLYRAY EDDA TIC 5 CHIROPRAC GAR MANIPULAT TIC [facility] CENTER SPINAL 3-4 REGIONS CHIROPRAC 99193 [facility] BAÑUELOS TIC 5 CHIROPRAC GAR MANIPULAT TIC [facility] CENTER SPINAL 1-2 REGIONS CHIROPRAC 28189 [facility] BAÑUELOS TIC 5 CHIROPRAC GAR MANIPULAT TIC [facility] CENTER SPINAL 1-2 REGIONS RADEX 40074 THALIA CORTEZ KIMBERLEY FOOT 5 MEDICAL COMPLETE IMAGING MINIMUM 3 ASS VIEWS CRTCHS E0114 ADVANCED ADVANCED UNDARM 5 TECHNOLOG TECHNOLOG OTH THAN IES INC IES INC WOOD PAIR PAD TIP&HNDGR IP CHIROPRAC 87154 LAN[facility] BAÑUELOS TIC 5 CHIROPRAC GAR MANIPULAT TIC [facility] [place]AL 1-[address] [place] [address] LUI CARTERO HEAD/BRAI 5 NAL N W/O RADIOLOGY CONTRAST INC. MATERIAL RADIOLOGI 05326 LUI Fischer 5 NAL ADA EXAMINATI RADIOLOGY ON CHEST INC. SINGLE VIEW FRONTAL MICROSURG 76944 [place] TQS REQ 5 MEDICAL JUS USE SERV OPERATING FOUNDATIO N MICROSCOP E UNLISTED 11535 [place] PROCEDURE 5 MEDICAL JUS NERVOUS SERV SYSTEM FOUNDATIO N ARTL 30239 [place] [facility] CATHJ/CAN 5 MEDICAL ZOH NULJ SERVICES MNTR/GERMAN SFUSION SPX PRQ ANESTHESI 75250 [place] A 5 MEDICAL ZO INTRACRAN SERVICES IAL VASCULAR PROCEDURE INITIAL 24392 [place] MANCIA INPATIENT 5 MEDICAL L CONSULT SERV NEW/ESTAB FOUNDATIO PT 80 N MIN APPL 80189 COLE GALVAN MODALITY 5 COL COL 1/> AREAS TRACTION MECHANICA L CHIROPRAC 66387 COLECLAUDIA GALVAN TIC 5 COL COL MANIPULAT BEN [place] SPINAL 1-2 REGIONS APPL 98321 COLE DOWNINGESON MODALITY 5 COL COL 1/> AREAS ELEC STIMJ UNATTENDE [facility] [address] [place] ERLANDSON DISCHARGE 5 MEDICAL SHEA DAY SERV MANAGEMEN FOUNDATIO T 30 N MIN/< ECG 26506 [place] CHI ROUTINE 5 MEDICAL ECG SERV W/LEAST FOUNDATIO 12 LDS N I&R ONLY ANKLE L1930 PATIENT PATIENT FOOT 5 AIDS INC AIDS INC ORTHOTIC PLASTIC/O TH MATL PREFAB CANE E0105 PATIENT PATIENT QUAD/3-MS 5 AIDS INC AIDS INC JACIEL ALL MATL ADJUSTBL/ FIX W/TIPS SBSQ 20296 [place] [address] MEDICAL NAN CARE/DAY SERV 25 FOUNDATIO MINUTES N SBSQ 23375 [place] [address] MEDICAL SHEA CARE/DAY SERV 35 FOUNDATIO MINUTES N SBSQ 69043 [place] [address] MEDICAL SARAH CARE/DAY SERV 25 FOUNDATIO MINUTES N SBSQ 47126 [place] [address] MEDICAL SARAH CARE/DAY SERV 25 FOUNDATIO MINUTES N SBSQ 92255 [place] [address] MEDICAL SARAH CARE/DAY SERV 25 FOUNDATIO MINUTES N SBSQ 22951 [place] [address] MEDICAL SHEA CARE/DAY SERV 25 FOUNDATIO MINUTES N SBSQ 21056 [place] [address] MEDICAL SHEA CARE/DAY SERV 25 FOUNDATIO MINUTES N RADIOLOGI [address]3974 [place] [address] RADIOLOGY III ROMARIO EXAMINATI ON CHEST [facility] [address] [place] [address] MEDICAL JOHN DAY SERV MANAGEMEN FOUNDATIO T 30 N MIN/< INITIAL 14926 [place] [address] MEDICAL SHEA CARE/DAY SERV 70 FOUNDATIO MINUTES N SBSQ 31019 [place] [address] MEDICAL JOHN CARE/DAY SERV 25 FOUNDATIO MINUTES N SBSQ 35799 [facility] 5 MEDICAL CARE/DAY SERV 35 FOUNDATIO MINUTES N SLCTV 52842 [facility] C[facility] 5 MEDICAL ABD XTRNL SERV CAROTID FOUNDATIO ANGIO N XTRNL CAROTD CIRC SLCTV 40593 [facility] MEDICAL ABD INTRNL SERV CAROTID FOUNDATIO ART ANGIO N INTRCRNL ART SLCTV 85162 AL AL[facility] CATH 5 MEDICAL ABD VERTEBRAL SERV ART FOUNDATIO ANGIO N VERTEBRAL ARTERY SLCTV 43652 [place] ALHAJER[facility] CATH 5 MEDICAL ABD CAROTID/I SERV NNOM ART FOUNDATIO ANGIO N INTRCRANL ART GROUND A0425 [facility] MILEAGE 5 MYRANDA WHITMORE PER CO EMS CO EMS STATUTE MILE ECG 48734 [place] CHI ROUTINE 5 MEDICAL ECG SERV W/LEAST FOUNDATIO 12 LDS N I&[place] [address] [place] S[place] K[place] ANGIOGRAP 5 MEDICAL HY HEAD SERV W/CONTRAS FOUNDAT[place] T/[place] [address] [place] HEAD/BRAI 5 MEDICAL FLA N W/O SERV CONTRAST FOUNDATIO MATERIAL N MRI BRAIN 31043 [place] ESCOTT BRAIN 5 MEDICAL EDW STEM W/O SERV W/CONTRAS FOUNDATIO T N MATERIAL RADIOLOGI 33901 [place] C 5 MEDICAL EITAN EXAMINATI SERV ON CHEST [place] [address] [place] ANGIOGRAP 5 MEDICAL FLA HY NECK SERV W/CONTRAS FOUNDATIO T/NONCONT N RAST HEMOGLOBI 75538 [facility] ED[facility] FRACTJ/[facility] [place] [facility] ELECTROPH ORESIS AMB A0427 [facility] SERVICE 5 MYRANDA WHITMORE ALS CO EMS CO EMS EMERGENCY TRANSPORT LEVEL 1 RADEX 59155 CO[place] COLE SPINE 5 COL COL LUMBOSACR AL 2/3 VIEWS APPL 23841 COLE COLE MODALITY 5 COL COL 1/> AREAS TRACTION MECHANICA L CHIROPRAC 17318 COLE COLE TIC 5 COL COL MANIPULAT BEN [place] SPINAL 3-4 REGIONS APPL 49788 COLE COLE MODALITY 5 COL COL 1/> AREAS ELEC STIMJ UNATTENDE D CHIROPRAC 09645 COLEKIRTI NOLANON TIC 5 COL COL MANIPLTV TX EXTRASPIN AL 1/> [place] [address] [facility] SCALF JOHN ABDOMEN & 4 RADIOLOGY PELVIS W/O CONTRAST MATERIAL BLOOD 96005 [facility] PERIPHERA L INTERP PHYS W/WRIT REPORT ECG 81660 [place] CHI ROUTINE 4 MEDICAL ECG SERV W/LEAST FOUNDATIO 12 LDS N I&R ONLY GROUND A0425 BOB BOB MILEAGE 4 CO CO PER AMBULANCE [place]UL[place] [address] THALIA CARBALLOCHER HEAD/BRAI 4 MEDICAL ROYER N W/O IMAGING CONTRAST ASS MATERIAL AMB A0427 BOB BOB SERVICE 4 CO CO ALS AMBULANCE AMBULANCE EMERGENCY TAXIN TAX[place] [address] [place] [address] ROSEMARIE HOUSTON 1/> AREAS 4 DONNA DONNA EACH 15 MINUTES MASSAGE CHIROPRAC 57530 ROSEMARIE HOUSTON TIC 4 DONNA DONNA MANIPULAT BEN [place] SPINAL 3-4 REGIONS [facility] [address] [facility] 4 [facility] MEDICINE MANAGEMEN UFPA T 30 MIN/< INITIAL 57612 [facility] NAHUM INPATIENT 4 Medicine JR. KIMBERLEY CONSULT NEW/ESTAB PT 55 MIN INITIAL 74634 [facility] SHAINA INPATIENT 4 Medicine DAM SRI CONSULT NEW/ESTAB PT 80 MIN INITIAL 04032 67 [place] [facility] MEDICINE [address] [place] [address] MADHU DIXON ABDOMEN & 4 Radiologi LUCIANO PELVIS kristen W/O Associate CONTRAST s MATERIAL RADIOLOGI 66283 MADHU DIXON C EXAM 4 Radiologi LUCIANO CHEST 2 kristen VIEWS Associate FRONTAL&L s ATERAL CHIROPRAC 05832 ROSEMARIE HOUSTON TIC 4 DONNA DONNA MANIPULAT B[place] SPINAL 3-[place] [address] ROSEMARIE HOUSTON 1/> AREAS 4 DONNA DONNA EACH 15 MINUTES MASSAGE CHIROPRAC 27267 ROSEMARIE HOUSTON TIC 4 DONNA DONNA MANIPULAT BEN [place] SPINAL 3-4 REGIONS CHIROPRAC 39420 ROSEMARIE HOUSTON TIC 4 DONNA DONNA MANIPULAT BEN [place] SPINAL 3-4 REGIONS THERAPEUT 03213 ROSEMARIE HOUSTON IC PX 1/> 4 DONNA DONNA AREAS EACH 15 MIN EXERCISES HOSPITAL 39061 [facility] 4 EDW EDW DAY MANAGEMEN T 30 MIN/< SBSQ 87268 [facility] 4 EDW EDW CARE/DAY 25 MINUTES SBSQ 69778 [facility] 4 EDW EDW CARE/DAY 25 MINUTES GROUND A0425 BOB BOB MILEAGE 4 CO CO PER AMBULANCE AMBULANCE STATUTE TAXIN TAXIN MILE AMBULANCE A0429 BOB BOB SERVICE 4 CO CO BLS AMBULANCE AMBULANCE EMERGENCY TAXIN TAXIN TRANSPORT INITIAL 26085 [facility] 4 EDW EDW CARE/DAY 50 MINUTES ECG 80834 BROCK BROCK ROUTINE 4 GAR GAR ECG W/LEAST 12 L[place] [address] ROSEMARIE HOUSTON 1/> AREAS 4 DONNA DONNA EACH 15 MIN NEUROMUSC REEDUCA CHIROPRAC 68349 ROSEMARIE HOUSTON TIC 4 DONNA DONNA MANIPULAT BEN [place] SPINAL 3-4 REGIONS RADEX 29996 LUBIMANI LUBIMANI ANKLE 4 WILLI WILLI COMPLETE MINIMUM [address] [facility] ON CARE 3 LUZ ELENA HUG DISCHARGE PHYSICIAN SERVI MANAGEMEN T SBSQ [address] [facility] OBSERVATI 3 LUZ ELENA HUG ON PHYSICIAN CARE/DAY SERVI [address]ES [address] [facility] OBSERVATI 3 LUZ ELENA HUG ON PHYSICIAN CARE/DAY SERVI 50 MINUTES ECG 72830 CELLAROSI CELLAROSI ROUTINE 3 - YORBA - YORBA ECG PAT PAT W/LEAST 12 LDS I&R ONLY CRITICAL 78711 CELL[facility]OS[facility] CELLAROSI CARE 3 - YORBA - YORBA ILL/INJUR PAT PAT ED PATIENT INIT 30-[place] [address] CEE CEE RETROPERI 3 RHO RHO TONEAL REAL TIME W/IMAGE LIMITED ECG 29309 OZOR MAR OZOR MAR ROUTINE 3 ECG W/LEAST 12 LDS I&R ONLY ECG 84736 MARCO LARA ROUTINE 3 RYA RYA ECG W/LEAST 12 LDS I&R ONLY CT THORAX 82438 CARLINE MENSAH 3 W/[place] [address] [facility] INF[facility]ION [address] [place] [address] THER MEDICAL MEDICAL PROPH C C ADDL SEQUENTIA L TO 1 HR CALCIUM 57135 [facility] IONIZED [address] [place] [address] MEDICAL MEDICAL C C BLOOD 83351 [facility] COUNT [address] [place] [address] COMPLETE MEDICAL MEDICAL AUTO&[place] [address] [facility] GAMMAGLOB [address] [place] [address] ULIN IGA MEDICAL MEDICAL [place] [address] [facility] INFUSION [address] [place] [address] THERAPY MEDICAL MEDICAL PROPHYLAX C C [place] [address] THERAPY/P MEDICAL MEDICAL ROPHYLAXI C C S /DX 1ST TO 1 HR BASIC 75929 [facility] METABOLIC [address] [place] [address] PANEL MEDICAL MEDICAL CALCIUM C C TOTAL INJ J1557 [facility] IMMUNE [address] [place] [address] GLOBULIN MEDICAL MEDICAL IV C C NONLYOPHI LIZED 500 MG INJECTION J1200 [address] DIPHENHYD MEDICAL MEDICAL RAMINE C C HCL UP TO 50 MG INFUSION J7030 [facility] NORMAL [address] [place] [address] SALINE MEDICAL MEDICAL SOLUTION C C 1000 CC INJ J1720 [facility] HYDROCORT [address] [place] [address] ISONE MEDICAL MEDICAL SODIUM C C SUCCINATE TO 100 MG INJECTION J2405 [facility] 3 N N [facility] ON HCL HOSPITA HOSPITA PER 1 MG COLLECTIO 45611 [facility] N VENOUS 3 N N BLOOD [facility] VENIPUNCT HOSPITA HOSPITA URE COMPREHEN 82198 [facility] SIVE 3 N N METABOLIC [facility]ITY PANEL HOSPITA HOSPITA THERAPEUT 85746 [facility] IC 3 N N INJECTION [facility] IV PUSH HOSPITA HOSPITA EACH NEW DRUG BLOOD 46752 [facility] COUNT 3 N N SMEAR [facility] MCRSCP HOSPITA HOSPITA W/MNL DIFRNTL WBC COUNT BLOOD 73689 [facility] COUNT 3 N N COMPLETE [facility] AUTOMATED HOSPITA HOSPITA THER 24091 [facility] PROPH/DX 3 N N NJX IV [facility] PUSH HOSPITA HOSPITA SINGLE/1S T SBST/[place] [address] [facility] LIPASE 3 N N [facility] [place] [address] [facility] INFUSION 3 N N HYDRATION [facility] EACH HOSPITA [place] [address] [facility] AMYLASE 3 N N [facility] HOSPITA HOSPITA URINE 68795 [facility] 3 N N TEST [facility] VISUAL HOSPITA [place] [address] [facility] MAXILLOFA 3 N N CIAL W/O [facility] CONTRAST HOSPITA HOSPITA MATERIAL GROUND A0425 [facility] MILEAGE 3 Ada-ISHAN WHITMORE PER CO EMS CO EMS STATUTE MILE AMBULANCE A0429 [facility] SERVICE 3 Ada-ISHAN WHITMORE BLS CO EMS CO EMS EMERGENCY TRANSPORT RADEX 25481 [facility] NASAL 3 BONES COMPLETE MINIMUM 3 [place] [address] [facility] FREE [address] [place] [address] THYROXINE MEDICAL MEDICAL C C CREATININ 13017 [facility] E OTHER [address] [place] [address] SOURCE MEDICAL MEDICAL C C GLUCOSE 84270 [facility] BLOOD [address] [place] [address] RE[facility] [place] [address] [facility] THYROID [address] [place] [address] STIMULATI MEDICAL MEDICAL NG C C HORMONE TSH URNLS DIP [address] STICK/TAB MEDICAL MEDICAL LET RGNT C C AUTO W/O MICROSCOP Y CALCIUM 67835 [facility] IONIZED [address] [place] [address] MEDICAL MEDICAL C C PROCALCIT 42836 [facility] ONIN [address] [place] [address] (PCT) [place] [address] [facility] ESTROGENS [address] [place] [address] TOTAL MEDICAL MEDICAL C C GONADOTRO 34472 [facility] PIN [address] [place] [address] FOLLICLE MEDICAL MEDICAL [place] [address] [facility] RENIN [address] [place] [address] MEDICAL MEDICAL C C CULTURE 80400 [facility] BACTERIAL [address] [place] [address] MEDICAL MEDICAL QUANTTATI C C VE COLONY COUNT URINE GONADOTRO 47107 [facility] PIN [address] [place] [address] LUTEINIZI MEDICAL MEDICAL NG C C HORMONE INJECTION J0[address] CEFTRIAXO [facility] MEDICAL NE SODIUM C C PER 250 MG GROUND A0425 [facility] MILEAGE 3 N SCOT T N SCOT T PER CO EMS CO EMS STATUTE MILE INITIAL 84842 POLA LAMAR MEÑO INPATIENT 3 HOSP MED CONSULT CTR NEW/ESTAB PT 110 MIN THERAPEUT 01072 [facility] IC 3 N N INJECTION [facility] IV PUSH HOSPITA HOSPITA EACH NEW DRUG CULTURE 12208 [facility] BACTERIAL [address] [place] [address] BLOOD MEDICAL MEDICAL AEROBIC C C W/ID ISOLATES GONADOTRO 49597 [facility] PIN [address] [place] [address] CHORIONIC MEDICAL MEDICAL C C QUALITATI VE CRITICAL [address] ILL/INJUR MEDICAL MEDICAL ED C C PATIENT INIT 30-74 MIN INJECTION J2405 [facility] 3 N N [facility] ON HCL HOSPITA HOSPITA PER 1 MG BLOOD 65939 [facility] COUNT 3 N N COMPLETE COMM[facility]ITY COMMUNITY AUTO&AUTO HOSPITA HOSPITA DIFRNTL WBC THER 35696 [facility] PROPH/DX 3 N N NJX IV COMM[facility]ITY COMMUNITY PUSH HOSPITA HOSPITA SINGLE/1S T SBST/[place] [address] [facility] INFUSION 3 N N HYDRATION COMM[facility] COMMUNITY EACH HOSPITA HOSPITA ADDITIONA L HOUR COMPREHEN 16113 [facility] SIVE 3 N N METABOLIC COMM[facility]UN[facility] [place] [address] [facility] MAGNESIUM [address] [place] [address] [place] [address] [facility] PHOSPHORU [address] [place] [address] S MEDICAL MEDICAL INORGANIC C C BLOOD 69089 [facility] COUNT [address] [place] [address] COMPLETE MEDICAL MEDICAL AUTO&[place] [address] [facility] GAMMAGLOB [address] [place] [address] [place] [address] [facility] HOSPITAL THERAPY MEDICAL MEDICAL PROPHYLAX C C IS/[place] [address] [facility] HOSPITAL THERAPY/P MEDICAL MEDICAL ROPHYLAXI C C S /DX 1ST TO 1 HR HEPATIC 33850 [facility] FUNCTION [address] [place] [address] PANEL MEDICAL MEDICAL C C BASIC 70945 [facility] METABOLIC [address] [place] [address] PANEL MEDICAL MEDICAL CALCIUM C C TOTAL INJECTION J1561 [facility] IMMUNE [address] [place] [address] GLOBULIN MEDICAL MEDICAL NONLYOPHI C C LIZED 500 MG BASIC 47371 [facility] METABOLIC [address] [place] [address] PANEL MEDICAL MEDICAL CALCIUM C C TOTAL HEPATIC 82658 [facility] FUNCTION [address] [place] [address] [place] [address] [facility] HOSPITAL THERAPY/P MEDICAL MEDICAL ROPHYLAXI C C S /DX 1ST TO 1 [place] [address] [facility] [address] [place] [address] HOSPITAL THERAPY MEDICAL MEDICAL PROPHYLAX C C IS/[place] [address] [facility] GAMMAGLOB [address] [place] [address] MEDICAL IGD IGG C C IGM EACH BLOOD 79525 [facility] COUNT [address] [place] [address] COMPLETE MEDICAL MEDICAL AUTO&[place] [address] [facility] MAGNESIUM [address] [place] [address] [place] [address] [facility] PHOSPHORU [address] [place] [address] S MEDICAL MEDICAL INORGANIC C C INJ IG J1569 [facility] GAMMAGARD [address] [place] [address] LIQ IV MEDICAL MEDICAL NONLYOPHI C C LIZED 500 MG COLLECTIO 63678 [facility] N VENOUS [address] [place] [address] BLOOD MEDICAL MEDICAL VENIPUNCT C C URE CALCIUM 55025 [facility] CH[facility] IONIZED [address] [place] [address] H[place]PITAL [place] [address] [facility] MAGNESIUM [address] [place] [address] [place] [address] [facility] PHOSPHORU [address] [place] [address] HOSPITAL S MEDICAL MEDICAL INORGANIC C C BLOOD 47177 [facility] COUNT [address] [place] [address] HOSPITAL COMPLETE MEDICAL MEDICAL AUTO&[place] [address] [facility]AMMAGLOB [address] [place] [address] [place] [address] [facility] HOSPITAL THERAPY MEDICAL MEDICAL PROPHYLAX C C IS/[place] [address] [facility] HOSPITAL THERAPY/P MEDICAL MEDICAL ROPHYLAXI C C S /DX 1ST TO 1 HR HEPATIC 18326 [facility] HOSPITAL PANEL MEDICAL MEDICAL C C BASIC 42843 [facility] METABOLIC [address] [place] [address] HOSPITAL PANEL MEDICAL MEDICAL CALCIUM C C TOTAL RADIOLOGI 70808 RADIOLOGY DONG C EXAM 3 MEENU CHEST 2 ASSOCIATE VIEWS S OF NOTH FRONTAL&[place] [address] [facility] HOSPITAL THERAPY MEDICAL MEDICAL PROPHYLAX C C IS/[place] [address] [facility] GAMMAGLOB [address] [place] [address] IGD IGG C C IGM EACH BLOOD 65886 [facility] COUNT [address] [place] [address] HOSPITAL COMPLETE MEDICAL MEDICAL AUTO&AUTO C C DIFRNTL WBC BASIC 06791 [facility] METABOLIC [address] [place] [address] HOSPITAL PANEL MEDICAL MEDICAL CALCIUM C C TOTAL HEPATIC 67279 [facility] [place] [address] [facility] HOSPITAL THERAPY/P MEDICAL MEDICAL ROPHYLAXI C C S /DX 1ST TO 1 [place] [address] [facility] PHOSPHORU [address] [place] [address] HOSPITAL S [place]ICAL [place] [address] [facility] MAGNESIUM [address] [place] [address] HOSPITAL MEDICAL MEDICAL C C CALCIUM 93509 [facility] CH[facility] IONIZED 3 [facility] MEDICAL MEDICAL C C INJ IG J1569 [facility] GAMMAGARD [address] [place] [address] LIQ IV MEDICAL MEDICAL NONLYOPHI C C LIZED 500 MG HOSPITAL 83186 [facility] DISCHARGE 3 Y OF ALONZO DAY [place] MANAGEMEN I PHY T 30 MIN/< SBSQ 39835 [facility] 3 Y OF TORSTEN CARE/DAY [place] 25 I PHY MINUTES SBSQ 30167 [facility] 3 Y OF ALONZO CARE/DAY [place] 25 I PHY MINUTES SBSQ 46071 [facility] 3 Y OF ALONZO CARE/DAY [place] 25 I PHY MINUTES DXA BONE 61601 [facility]PITAL DENSITY 3 Y OF BRU STUDY 1/> [place] SITES I PHY AXIAL SKEL SBSQ 80627 [facility] 3 Y OF ALONZO CARE/DAY [place] 35 I PHY MINUTES SBSQ 83557 [facility] 3 Y OF ALONZO CARE/DAY [place] 25 I PHY MINUTES INITIAL 77150 [facility] 3 Y OF ALONZO CARE/DAY [place] 70 I PHY MINUTES INITIAL 25243 [facility] INPATIENT 3 Y OF TORSTEN CONSULT [place] NEW/ESTAB I PHY PT 110 MIN RADIOLOGI 07395 [facility] C EXAM 3 Y OF MEENU CHEST 2 [place] VIEWS I PHY FRONTAL&L ATERAL GROUND A0425 [facility] MILEAGE 3 METRO OF METRO [facility] MILE THERAPEUT 85532 [facility] ACTVITY [address] [place] [address] DIRECT PT MEDICAL MEDICAL CONTACT C C EACH 15 MIN HEPATIC 67732 [facility] FUNCTION [address] [place] [address] PANEL MEDICAL MEDICAL C C RENAL 73127 [facility] FUNCTION [address] [place] [address] PANEL MEDICAL MEDICAL C C CALCIUM 86989 [facility] IONIZED [address] [place] [address] MEDICAL MEDICAL C C THER 07481 [facility] PROPH/DX [address] [place] [address] NJX IV MEDICAL MEDICAL PUSH C C SINGLE/1S T SBST/[place] [address] [facility] MAGNESIUM [address] [place] [address] MEDICAL MEDICAL C C NONINVASI 15795 [facility] VE [address] [place] [address] EAR/PULSE MEDICAL MEDICAL OXIMETRY C C MULTIPLE DETER INJECTION J0610 [facility] CALCIUM [address] [place] [address] GLUCONATE MEDICAL MEDICAL PER 10 C C ML 5% J7060 [facility] DEXTROSE/ [address] [place] [address] WATER MEDICAL MEDICAL C C THERAPEUT 56943 [facility] IC PX 1/> [address] [place] [address] AREAS MEDICAL MEDICAL EACH 15 C C MIN EXERCISES ORTHOTIC 03509 [facility] MGMT&GILBERT [address] [place] [address] [place] UXTR MEDICAL MEDICAL LXTR&/TRN C C K EA 15 PHYSICAL 82107 [facility] THERAPY [address] [place] [address] EVALUATIO MEDICAL MEDICAL N C C COLLECTIO 96797 [facility] N VENOUS [address] [place] [address] BLOOD MEDICAL MEDICAL VENIPUNCT C C URE INJ IG J1569 [facility] GAMMAGARD [address] [place] [address] LIQ IV MEDICAL MEDICAL NONLYOPHI C C LIZED 500 [place] [address] [facility] MAGNESIUM [address] [place] [address] [place] [address] [facility] PHOSPHORU [address] [place] [address] S [facility] MEDICAL INORGANIC C C CALCIUM 15570 [facility] IONIZED [address] [place] [address] [place] [address] [facility] INFUSION [address] [place] [address] THERAPY/P MEDICAL MEDICAL ROPHYLAXI C C S /DX 1ST TO 1 HR BASIC 67269 [facility] METABOLIC [address] [place] [address] PANEL MEDICAL [place] [address] [facility] INFUSION [address] [place] [address] THERAPY MEDICAL MEDICAL PROPHYLAX C C IS/[place] [address] [facility] GAMMAGLOB [address] [place] [address] MEDICAL I[place] [address] [facility] GAMMAGLOB [address] [place] [address] MEDICAL IGD IGG C C IGM EACH BLOOD 64038 [facility] COUNT [address] [place] [address] COMPLETE MEDICAL MEDICAL AUTO&[place] [address] [facility] INFUSION 2 [facility] HOSPITAL THERAPY MEDICAL MEDICAL PROPHYLAX C C IS/DX EA HOUR RHEUMATOI 73261 [facility] D FACTOR 2 [facility] QUANTITAT MEDICAL MEDICAL BEN C C BASIC 72052 [facility] METABOLIC 2 [facility] PANEL MEDICAL [place] [address] [facility] INFUSION 2 [facility] HOSPITAL THERAPY/P MEDICAL MEDICAL ROPHYLAXI C C S /DX 1ST TO 1 HR HEPATIC 98729 [facility] FUNCTION 2 [facility] PANEL MEDICAL MEDICAL C C CALCIUM 45137 [facility] CH[facility] IONIZED [address] [place] [address] [place] [address] [facility] PHOSPHORU [address] [place] [address] [place] [address] [facility] MAGNESIUM [address] [place] [address] MEDICAL MEDICAL C C RADEX 56693 [facility] [address] [place] [address] VIEWS MEDICAL MEDICAL C C CYCLIC 85423 [facility] CITRULLIN [address] [place] [address] [facility] MEDICAL PEPTIDE C C ANTIBODY EXTRACTAB 25564 [facility] LE [address] [place] [address] NUCLEAR MEDICAL MEDICAL ANTIGEN C C ANTIBODY ANY METHOD RADEX 88940 [facility] SPINE 2 [facility] LUMBOSACR MEDICAL MEDICAL AL /3 C C VIEWS C-REACTIV 67024 [facility] E PROTEIN 2 [facility] MEDICAL MEDICAL C C RADIOLOGI 59914 [facility] C 2 [facility] EXAMINATI MEDICAL MEDICAL ON KNEE C C 1/2 VIEWS SEDIMENTA 23444 [facility] TION RATE 2 [facility] RBC MEDICAL MEDICAL AUTOMATED C C INJ IG J1569 [facility] [address] LIQ IV MEDICAL MEDICAL NONLYOPHI C C LIZED 500 MG INJ IG J1569 [address] LIQ IV MEDICAL MEDICAL NONLYOPHI C C LIZED [address] [place] [address] [facility] MAGNESIUM [address] [place] [address] [place] [address] [facility] PHOSPHORU [address] [place] [address] S MEDICAL MEDICAL INORGANIC C C CALCIUM 48039 [facility] CH[facility] IONIZED 2 [facility] MEDICAL MEDICAL C C HEPATIC 05842 [facility] FUNCTION 2 [facility] [place] [place] [address] [facility] INFUSION 2 HOSPITAL HOSPITAL THERAPY/P MEDICAL MEDICAL ROPHYLAXI C C S /DX 1ST TO 1 HR BASIC 89818 [facility] METABOLIC 2 [facility] PANEL MEDICAL [place] [address] [facility] INFUSION 2 [facility] HOSPITAL THERAPY MEDICAL MEDICAL PROPHYLAX C C IS/DX EA HOUR BLOOD 93570 [facility] COUNT [address] [place] [address] COMPLETE MEDICAL MEDICAL AUTO&[place] [address] [facility] [address] IGD IGG C C IGM EACH URINE 46439 [facility] PENDELE[facility] 2 N CO N CO TEST [employer] [facility] COLOR CMPRSN METHS CYTP 05673 PATHOLOGY PICKLESIM CERV/VAG 2 & ER JR ERICA AUTO THIN CYTOLOGY LAYER [place] [address] [facility] PHOSPHORU [address] [place] [address] MEDICAL [place] [address] [facility] MAGNESIUM [address] [place] [address] [place] [address] [facility] [address] IGD IGG C C IGM EACH BLOOD 75752 [facility] COUNT [address] [place] [address] COMPLETE MEDICAL MEDICAL AUTO&[place] [address] [facility] INFUSION 2 [facility] HOSPITAL THERAPY MEDICAL MEDICAL PROPHYLAX C C IS/DX EA HOUR BASIC 88136 [facility] METABOLIC 2 [facility] PANEL MEDICAL [place] [address] [facility] INFUSION 2 HOSPITAL HOSPITAL THERAPY/P MEDICAL MEDICAL ROPHYLAXI C C S /DX 1ST TO 1 HR HEPATIC 81380 [facility] FUNCTION 2 [facility] PANEL MEDICAL MEDICAL C C 5% J7060 [facility] DEXTROSE/ 2 HOSPITAL HOSPITAL WATER MEDICAL MEDICAL C C INJ IG J1569 [facility] GAMMAGARD [address] [place] [address] LIQ IV MEDICAL MEDICAL NONLYOPHI C C LIZED 500 MG INJ IG J1569 [facility] GAMMAGARD 2 [facility] LIQ IV MEDICAL MEDICAL NONLYOPHI C C LIZED 500 MG 5% J7060 [facility] DEXTROSE/ 2 [facility] WATER MEDICAL MEDICAL C C DRUG 92490 [facility] SCREEN 2 [facility] QUANTITAT [place]ICAL [place] [address] [facility] INFUSION 2 [facility] THERAPY/P MEDICAL MEDICAL ROPHYLAXI C C S /DX 1ST TO 1 HR BASIC 51935 [facility] METABOLIC [address] [place] [address] PANEL [place]ICAL [place] [address] [facility] INFUSION [address] [place] [address] HOSPITAL THERAPY MEDICAL MEDICAL PROPHYLAX C C IS/DX EA HOUR BASIC 01856 [facility] METABOLIC [address] [place] [address] PANEL MEDICAL [place] [address] [facility]OSPHORU [address] [place] [address] S MEDICAL [place] [address] [facility] MAGNESIUM [address] [place] [address] MEDICAL MEDICAL C C COLLECTIO 05997 [facility] N VENOUS [address] [place] [address] BLOOD MEDICAL MEDICAL [place] [address] [facility] THYROID [address] [place] [address] STIMULATI MEDICAL MEDICAL [place] [address] [facility] FREE [address] [place] [address] THYROXINE MEDICAL MEDICAL C C FLOW 30963 [facility] CYTOMETRY 2 [facility] INTERPJ MEDICAL MEDICAL 2-8 C C MARKERS LYMPHOCYT 78440 [facility] E TR [address] [place] [address] MITOGEN/A MEDICAL MEDICAL G INDUCED C C BLASTOGEN ESIS ANTIBODY 82907 [facility] TETANUS [address] [place] [address] MEDICAL MEDICAL C C BLOOD 56636 [facility] COUNT [address] [place] [address] SMEAR MEDICAL MEDICAL MCRSCP C C W/MNL DIFRNTL WBC COUNT HEPATIC 87947 [facility] FUNCTION [address] [place] [address] PANEL MEDICAL MEDICAL C C ANTIBODY 98618 [facility] BACTERIUM [address] [place] [address] NOT MEDICAL MEDICAL ELSEWHERE C C SPECIFIED ANTIBODY 70579 [facility] VARICELLA [address] [place] [address] -[facility] [address] MEDICAL IGD IGG C C IGM EACH BLOOD 91410 [facility] COUNT [address] [place] [address] COMPLETE MEDICAL MEDICAL AUTOMATED C C DRUG 67450 [facility] SCREEN [address] [place] [address] QUANTITAT [place]ICAL [place] [address] [facility] RETROPERI 2 RADIOLOGY LD IV A TONEAL REAL TIME W/IMAGE LIMITED RADIOLOGI 58689 [facility] [place] GENI C EXAM 2 RADIOLOGY LEON CHEST 2 VIEWS FRONTAL&[place] [address] MEDICAL IGD IGG C C IGM EACH GENERAL [address] PANEL MEDICAL MEDICAL C C FLUORESCE [address] NONNFCT MEDICAL MEDICAL AGT ANTB [place] [address] [facility] MAGNESIUM [address] [place] [address] MEDICAL MEDICAL C C FLOW 06593 [facility] CYTOMETRY [address] [place] [address] INTERPJ MEDICAL MEDICAL 2-8 C C MARKERS [address] INCLUDES MEDICAL MEDICAL FRACTIONS C C IF PERFORMED IMMUNOASS 98693 [facility] AY [address] [place] [address] ANALYTE MEDICAL MEDICAL QUAL/SEMI [place] [address] [facility] PHOSPHORU [address] [place] [address] S MEDICAL MEDICAL INORGANIC C C ALPHA-FET 92314 [facility] OPROTEIN [address] [place] [address] SERUM MEDICAL MEDICAL C C THROMBOPL 11282 [facility] ASTIN [address] [place] [address] TIME MEDICAL MEDICAL PARTIAL C C PLASMA/WH OLE BLOOD BILE 29260 [facility] ACIDS [address] [place] [address] TOTAL MEDICAL MEDICAL C C PROTHROMB 42544 [facility] IN TIME [address] [place] [address] MEDICAL MEDICAL C C MICROSOMA [id number] 93 [address] [facility] [place] [address] ABDOMINAL 2 WILSON WILSON REAL FT FT TIME DIVYA STOKES W/IMAGE LIMITED GROUND [id number] JERILYN JERILYN MILEAGE 2 FAYETTE FAYETTE PER URBAN [place] [address] MICHAEL BAR MICHAEL BAR HEAD/BRAI 2 N W/O CONTRAST MATERIAL AMB [id number] JERILYN JERILYN SERVICE 2 FAYETTE FAYETTE ALS URBAN URBAN EMERGENCY [place] [address] MICHAEL BAR MICHAEL BAR THORACIC 2 SPINE W/O CONTRAST MATERIAL RADEX 25515 [facility] [place] RODRIGUES FOOT 2 RADIOLOGY TIFFANY COMPLETE MINIMUM 3 VIEWS THERAPEUT 35459 [facility] ALESSANDRO IC PX 1/> 2 CH[facility]OPR[facility] JOSE DAVID AREAS TIC EACH 15 CENTER MIN EXERCISES CHIROP[facility]AC 22889 [facility] TIC 2 [facility] JOSE DAVID MANIPULAT TIC BEN [place] CENTER SPINAL 3-[place] [address] [facility] 1/> AREAS 2 CHIROPRAC JOSE DAVID EACH 15 TIC MIN CENTER NEUROMUSC REEDUCA STRAPPING 30224 [facility] ACS KNEE 2 PRIMARY PRIMARY CARE CARE PHYSICANS MELVI M M BLOOD [address] COUNT 2 WILSON WILSON COMPLETE FT FT AUTO&AUTO DIVYA STOKES DIFRNTL WBC BASIC [address] METABOLIC 2 WILSON WILSON PANEL FT FT CALCIUM DIVYA STOKES TOTAL URNLS DIP [address] 2 WILSON WILSON STICK/TAB FT FT LET RGNT DIVYA STOKES NON-[place] W/[place] [address] INFUSION 2 WILSON WILSON HYDRATION FT FT EACH DIVYA STOKES ADDITIONA L HOUR THER [address] PROPH/DX 2 WILSON WILSON NJX IV FT FT PUSH DIVYA STOKES SINGLE/1S T SBST/DRUG COLLECTIO [address] N VENOUS 2 WILSON WILSON BLOOD FT FT VENIPUNCT DIVYA STOKES URE INJ J1720 [facility] HYDROCORT 2 WILSON RACHEL ISONE FT FT SODIUM DIVYA DIVYA SUCCINATE [address] [place] [address] MICHAEL BAR MICHAEL BAR MAXILLOFA 2 CIAL W/[place] [address] [facility] HISTOPLAS 1 [facility] MEDICAL CAPSULATU C C M BLOOD 75824 [facility] COUNT 1 [facility] COMPLETE MEDICAL MEDICAL AUTOMATED C C GONADOTRO 49299 [facility] PIN 1 [facility] CHORIONIC MEDICAL MEDICAL C C QUANTITAT BEN UNLISTED 15824 [facility] IMMUNOLOG 1 [facility] Y MEDICAL MEDICAL C C BLOOD 20270 [facility] COUNT 1 [facility] SMEAR [facility] MEDICAL MCRSCP C C W/[place] [address] [facility] PHOSPHORU [address] [place] [address] [facility] [place] [address] [facility] MAGNESIUM [address] [place] [address] MEDICAL MEDICAL C C COLLECTIO 99930 [facility] CH[facility] N VENOUS [address] [place] [address] BLOOD [facility] MEDICAL VENIPUNCT C C URE COMPREHEN 71048 [facility] SIVE [address] [place] [address] METABOLIC MEDICAL MEDICAL PANEL C C DRUG 21196 [facility] CHILDRENS SCREEN [address] [place] [address] QUANTITAT MEDICAL MEDICAL BEN C C SIROLIMUS RADEX 46999 [facility] [place] KOSTELIC RIBS UNI 1 RADIOLOGY ANA W/POSTERO ANT CH MINIMUM 3 [place] [address] ACS MERCHANT RIB 1 PRIMARY KET FRACTURE CARE UNCOMPLIC PHYSICANS ATED EACH M THERAPEUT 21809 [facility] IC 1 [facility] PROPHYLAC TIC/DX INJECTION SUBQ/[place] [address] [facility] [place] DEBRA HEAD/BRAI 1 RADIOLOGY ROBSON N W/O CONTRAST MATERIAL GONADOTRO 45798 [facility] PIN 1 [facility] CHORIONIC QUALITATI VE INJ [id number] [facility] HYDROCORT 1 [facility] ISONE SODIUM SUCCINATE TO 100 MG FLOW 28747 [facility] CYTOMETRY 1 [facility] CELL MEDICAL MEDICAL SURF C C MARK[place] [address] [facility] GAMMAGLOB 1 [facility] ULIN IGA MEDICAL MEDICAL IGD IGG C C IGM EACH RADIOLOGI 77465 [facility] C EXAM 1 [facility] CHEST 2 MEDICAL MEDICAL VIEWS C C FRONTAL&L ATERAL GENERAL 40383 [facility] HEALTH 1 [facility] PANEL MEDICAL MEDICAL C C FLUORESCE 15221 [facility] NT 1 [facility] NONNFCT MEDICAL MEDICAL AGT ANTB C C SCREEN EA ANTIBODY URNLS DIP 79288 [facility] [address] [place] [address] STICK/TAB MEDICAL MEDICAL LET RGNT C C AUTO W/O MICROSCOP Y ALPHA-FET 61637 [facility] OPROTEIN 1 [facility] SERUM MEDICAL MEDICAL C C CREATININ 59880 [facility] E OTHER 1 [facility] SOURCE MEDICAL MEDICAL C C FLOW 28137 [facility] CYTOMETRY 1 [facility] CELL MEDICAL MEDICAL SURF C C MARKER TECHL ONLY EA COLLECTIO 21299 [facility] N VENOUS 1 [facility] BLOOD MEDICAL MEDICAL VENIPUNCT C C URE FLOW 94723 [facility] CYTOMETRY 1 [facility] INTERPJ MEDICAL MEDICAL 2-8 C C MARKERS 25 25368 [facility] HYDROXY 1 [facility] INCLUDES MEDICAL MEDICAL FRACTIONS C C IF PERFORMED BILE 59063 [facility] ACIDS 1 [facility] TOTAL MEDICAL MEDICAL C C MICROSOMA 22465 [facility] L 1 [facility] ANTIBODIE MEDICAL MEDICAL S EACH C C PROTEIN 28478 [facility] TOTAL 1 [facility] XCPT MEDICAL MEDICAL [place] [address] [facility] THYROXINE 1 [facility] TOTAL MEDICAL MEDICAL C C BLOOD 69065 [facility] COUNT 1 [facility] SMEAR MEDICAL MEDICAL MCRSCP C C W/[place] [address] [facility] MAGNESIUM 1 [facility] MEDICAL MEDICAL C C IMMUNOASS 45817 [facility] AY 1 [facility] ANALYTE MEDICAL MEDICAL QUAL/SEMI [place] [address] [facility] PHOSPHORU 1 HOSPITAL HOSPITAL S MEDICAL MEDICAL INORGANIC C C INCISION 81086 [facility]ERT & 1 [facility] DRAIN[facility] C[facility] ABSCESS PHYSICANS COMPLICAT M ED/MULTIP LE BLOOD 54706 CHERISE CRISTINO SMEAR 1 [facility] INTERP PSC PHYS W/[place] [address] [facility] MAXILLOFA 1 [facility] CIAL W/O CONTRAST MATERIAL GONADOTRO 90106 [facility] PIN 1 [facility] CHORIONIC QUALITATI VE RADIOLOGI 25603 RADIOLOGY LAIB JOHN C EXAM 0 CHEST 2 ASSOCIATE VIEWS S PSC FRONTAL&L ATERAL RADEX 62973 RADIOLOGY LAIB JOHN SPINE 0 CERVICAL ASSOCIATE 4 OR 5 S PSC VIEWS URINE 44622 [facility], 0 WILSON CANDIDO TEST VISUAL PHYSICIAN COLOR S CMPRSN METHS Encounters Encounter Start End Date Code Location Performer Type Date INITIAL 95605 [facility] PREVENTIV 7 7 WILSON E MEDICINE PHYSICIAN NEW PT S AGE 18-39YRS [facility] ST - 7 7 WILSON OUTPATIEN T [facility] EMERGENCY 39930 [facility] 7 7 EMERGENCY DEPARTMEN T VISIT PHYSICIAN HIGH/URGE S NT SEVERITY OFFICE 23023 LANNY COLIN 7 7 CHIROPRAC T VISIT TIC 15 CENTER MINUTES [facility] - 7 7 [facility] OUTPATIEN E T HOSPITALS OFFICE 39782 OUTPATIEN 7 7 [facility]ALTH[facility] T VISIT 5 E MINUTES HOSPITALS OFFICE 49517 ALVIN SINGLETON OUTPATIEN 7 7 MEDICAL T NEW 45 SERV MINUTES FOUNDATIO N OFFICE 11528 LANNY COLIN 7 7 CHIROPRAC T VISIT TIC 15 CENTER MINUTES OFFICE 53965 [facility] OUTPATIEN 6 6 [place] KANG T VISIT PHYSICIAN 15 S ASSIST MINUTES [facility]OSP[facility] - 6 6 [facility] OUTPATIEN E T HOSPITALS OFFICE 98069 [facility] 6 6 HEALTHCAR T VISIT 5 [facility] EMERGENC[facility] 35793 TYLER GARCIAEY 6 6 PHYSICIAN CURTIS DEPARTMEN S, PLLC T VISIT MODERATE SEVERITY OFFICE 52037 [facility] 6 PARMINDER MIN T VISIT HOSPITAL 25 [facility] THE - 6 6 [facility] T OFFICE 24919 [facility] 6 6 CHIROPRAC T VISIT TIC 15 CENTER MINUTES EMERGENCY 44874 TYLER WANG 6 6 PHYSICIAN CURTIS DEPARTMEN S, PLLC T VISIT MODERATE SEVERITY OFFICE 03126 [facility] OUT[facility] 6 6 Y T VISIT 5 [facility] - [facility] 55532 [facility] 6 6 CHIROPRAC GAR T VISIT TIC 15 CENTER [facility] EMERGENCY 69880 [facility] 5 5 EMERGENCY DEPARTMEN T VISIT PHYSICIAN HIGH/URGE S NT SEVERITY OFFICE 41026 ALVIN CARRANZA OUTPATIEN 5 5 MEDICAL JUS T VISIT SERV 15 FOUNDATIO MINUTES N OFFICE 83507 [facility] OUTPATIEN 5 5 Y T VISIT 5 [facility] UNIVERS[facility] - 5 5 Y [facility] T OFFICE 25472 [facility] 5 5 CHIROPRAC T VISIT TIC 15 CENTER MINUTES OFFICE 45911 [facility] 5 5 HILL T VISIT REHABILIT 10 ATION MINUTES OFFICE 63816 [place] ERLANDSON OUTPATIEN 5 5 MEDICAL SHEA T VISIT SERV 25 FOUNDATIO MINUTES [facility] CARDINAL - 5 5 HILL OUTPATIEN REHABILIT T ATION OFFICE 20185 [facility] OUTPATIEN 5 5 Y T VISIT 5 HOSPITAL MINUTES HOSPITAL UN[facility] - 5 5 Y OUTPATIEN HOSPITAL T OFFICE 38515 PARMINDER TRAN OUTPATIEN 5 5 HOSPITAL MIN T NEW 45 MEDICAL MINUTES ASSO OFFICE 94792 ALVIN GRAHAMSER OUTPATIEN 5 5 MEDICAL JUS T VISIT SERV 25 FOUNDATIO MINUTES N HOSPITAL [facility]ARD[facility] - 5 5 [facility] ATION EMERGENCY 82101 [facility] CELLAROSI DEPT 5 5 LUZ ELENA - YORBA VISIT EMERGENCY PAT HIGH PHYS SEVERITY& THREAT FUNCJ OFFICE 69033 COLE GALVAN OUTPATIEN 5 5 COL COL T NEW 20 MINUTES EMERGENCY 95106 [facility] GERONIMO ERIC DEPT 4 4 LUZ ELENA VISIT EMERGENCY HIGH PHYS SEVERITY& THREAT [facility] UNIVERSIT - 4 4 Y OF [facility]PATIENT [place] [facility] OFFICE 99629 ROSEMARIE HOUSTON OUTPATIEN 4 4 DONNA DONNA T VISIT 15 MINUTES EMERGENCY 25303 MICHELLE HO MICHELLE HO DEPT 4 4 VISIT HIGH SEVERITY& THREAT FUNCJ OFFICE 55462 ROSEMARIE HOUSTON OUTPATIEN 4 4 DONNA DONNA T VISIT [address] 4 4 WILSON DEPARTMEN FT T VISIT DIVYA MODERATE SEVERITY EMERGENCY 04826 HEIDY CADET 4 4 DEPARTMEN T VISIT HIGH/URGE NT SEVERITY [facility]PITAL ST - 4 4 WILSON OUTPATIEN FT T DIVYA EMERGENCY 22219 LINDA VARGAS DEPT 3 3 VISIT HIGH SEVERITY& THREAT FUNCJ EMERGENCY 86933 JUSTIN ANDERSON 3 3 SCO SCO DEPARTMEN T VISIT HIGH/URGE NT SEVERITY EMERGENCY 46306 MARCO LARA DEPT 3 3 RYGeorges RYA VISIT HIGH SEVERITY& THREAT [facility] CHILDREN - 3 3 [facility] 23225 [facility] 3 3 N [facility] COMMUNITY T VISIT HOSPITA HIGH/URGE NT SEVERITY [facility] [place] [address] 3 [facility] [place] [address] 3 N [facility] T HOSPITA EMERGENCY 63437 [facility] 3 3 N [facility] HIGH/URGE NT SEVERITY EMERGENCY 39259 DOMINGUEZ MIX 3 3 EITAN EITAN DEPARTMEN T VISIT MODERATE SEVERITY EMERGENCY 38337 CELLAROSI CELLAROSI 3 3 - YORBA - YORBA [facility] PAT PAT T VISIT HIGH/URGE NT SEVERITY [facility] 3 3 [facility] T C EMERGENCY 36298 [place] VARGAS DEPT 3 3 EMERGENCY VISIT SERVICES HIGH SEVERITY& THREAT [facility] [place] [address] 3 N [facility] HOS[facility] EMERGENCY 91852 [place] MIX 3 3 EMERGENCY EITAN DEPARTMEN SERVICES T VISIT MODERATE SEVERITY HOSPITAL [facility] - 3 3 [facility] C OFFICE 22815 [facility] 3 3 HOSP MED GRE T VISIT CTR 25 MINUTES OFFICE 44980 [facility] Y [facility] WILLI [facility] I PHY MINUTES OFFICE 05719 [facility] 3 3 Y T VISIT 5 HOSPITAL MINUTES OFFICE 57585 [facility] OUT[facility]IEN 3 3 HOSP MED GRE T VISIT CTR 15 MINUTES HOSPITAL [facility] - 3 3 [facility] T OFFICE 76011 CHILDRENMarino [facility] OUTPATIEN 3 3 HOSP MED GRE T VISIT CTR 25 MINUTES HOSPITAL [facility] - 3 3 [facility] T C [facility] 3 3 [facility] OFF[facility] 10994 [facility] OUTPATIEN 3 3 HOSPITAL EITAN T VISIT MEDICAL 25 C MINUTES [facility] 3 3 [facility] T C [facility] 3 3 [facility] T C EMERGENCY 16833 [facility]PT 3 3 Y OF VIR [facility] PHY SEVERITY& THREAT [facility] - 3 3 [facility] T C OFFICE 60693 [facility]DRENS SAM [facility]IN OUTPATIEN 2 2 HOSP MED T NEW 45 CTR MINUTES OFFICE 93062 [facility]DRENS CUTHRELL OUTPATIEN 2 2 HOSPITAL EITAN T VISIT MEDICAL 25 C MINUTES HOSPITAL [facility]DRENS - 2 2 [facility] C OFFICE 47942 CHILDRENS CUTHRELL OUTPATIEN 2 2 HOSP MED EITAN T VISIT CTR 25 MINUTES HOSPITAL CHILDRENS - 2 2 [facility] MEDICAL T C PERIODIC 90881 P[facility] PENDELETO PREVENTIV 2 2 N CO N CO E MED [facility] CENTER 18-39 YRS HOSPITAL CHILDRENS - 2 2 [facility] T C OFFICE 89951 CHILDRENS FILIPOVIC OUTPATIEN 2 2 HOSP MED H EMILY T VISIT CTR 25 MINUTES OFFICE 47679 [facility]DRENS RAUL OUTPATIEN 2 2 HOSPITAL MAR T VISIT MEDICAL 25 C MINUTES HOSPITAL [facility]ENS - 2 2 [facility] C OFFICE 16801 POLA [facility] OUTPATIEN 2 2 HOSPITAL GRE T VISIT MEDICAL 40 C MINUTES OFFICE 29457 [facility]DREN OUTPATIEN 2 2 HOSPITAL T VISIT MEDICAL 15 C MINUTES HOSPITAL [facility] - 2 2 [facility] T C [facility] - 2 2 [facility] T C OFFICE 33078 [facility] 2 2 HOSPITAL T NEW MEDICAL MINUTES C EMERGENCY 54968 [facility] DE[facility] 2 2 PRIMARY VISIT CARE HIGH PHYSICANS SEVERITY& M THREAT FUNCJ EMERGENCY 45627 [facility] AUBRIE 2 2 PRIMARY EDW DEPARTMEN CARE T VISIT PHYSICANS HIGH/URGE M NT SEVERITY OFFICE 40921 [facility] 2 2 HOSPITAL T VISIT MEDICAL 40 C MINUTES HOSPITAL [facility] - OTHER 2 2 HOSPITAL MEDICAL [facility] ST - 2 2 [facility] EMERGENCY 03048 [facility] DEPT 2 2 LUZ ELENA VISIT EMERGENCY HIGH PHYS SEVERITY& THREAT FUNCJ EMERGENCY 70335 ACS 2 2 PRIMARY DEPARTMEN CARE T VISIT PHYSICANS HIGH/URGE M NT SEVERITY EMERGENCY 34455 ACS 2 2 PRIMARY DEPARTMEN CARE T VISIT PHYSICANS MODERATE M SEVERITY OFFICE 86792 [facility] OUT[facility] 2 2 [facility] JOSE DAVID T NEW 30 TIC MINUTES CENTER EMERGENCY 19133 ACS 2 2 PRIMARY DEPARTMEN CARE T VISIT PHYSICANS HIGH/URGE M NT SEVERITY EMERGENCY 96362 IVET PEREZ DEPT 2 2 VISIT HIGH SEVERITY& THREAT [facility] ST - 2 2 W[facility] OUTPATIEN FT T DIVYA EMERGENCY 13902 ST 2 2 [facility] VISIT DIVYA HIGH/URGE NT SEVERITY EMERGENCY 89644 DIVYA DIVYA 2 2 DIANA DIANA DEPARTMEN T VISIT HIGH/URGE NT SEVERITY OFFICE 26130 YAZIGI YAZIGI OUTPATIEN 1 1 NAD NAD T VISIT 25 MINUTES HOSPITAL [facility] - OTHER 1 1 HOSPITAL MEDICAL C OFFICE 52891 [facility] OUTPATIEN 1 1 HOSPITAL T VISIT MEDICAL 40 C MINUTES EMERGENCY 38724 [facility]CHANT 1 1 PRIMARY KET DEPARTMEN CARE T VISIT PHYSICANS HIGH/URGE M NT SEVERITY EMERGENCY 13654 [facility] SERRANO 1 1 PRIMARY PHI DEPARTMEN CARE T VISIT PHYSICANS MODERATE M SEVERITY EMERGENCY 20030 [facility] H[facility]URGE NT SEVERITY [facility] 1 1 [facility] [place] T OFFICE 99540 [facility]DRENS YAZIGI OUTPATIEN 1 1 HOSP MED NAD T VISIT CTR 25 MINUTES HOSPITAL [facility] - OTHER 1 1 HOSPITAL MEDICAL C OFFICE 52023 [facility] OUTPATIEN 1 1 HOSPITAL T VISIT MEDICAL 40 C [address] EMERGENCY [address] [facility] V[facility] LOW/MODER SEVERITY [facility] 1 1 [facility] T EMERGENCY 07928 [facility] 1 1 [facility] [place] DEPARTMEN CARE T VISIT PHYSICANS HIGH/URGE M NT SEVERITY [facility] [place] - 1 1 HOSPITAL OUTPATIEN T EMERGENCY 32831 [facility] 1 1 HOSPITAL DEPARTMEN T VISIT MODERATE SEVERITY EMERGENCY 07714 [facility] STACK MEENU 1 1 PRIMARY DEPARTMEN CARE T VISIT PHYSICANS HIGH/URGE M NT SEVERITY [facility]OSPITAL [facility] - 1 1 EAST OUTPATIEN T EMERGENCY 77544 [facility] 1 1 EAST DEPARTMEN T VISIT MODERATE SEVERITY EMERGENCY 59016 EMERGENCY EMERY CHICHI 0 0 CARE DEPARTMEN PHYS T VISIT [facility] HIGH/URGE NT SEVERITY OFFICE 58974 [facility] OUTPATIEN 0 0 WILSON SHE T VISIT 25 PHYSICIAN MINUTES S EMERGENCY 51528 EMERGENCY EMERY CHICHI 0 0 CARE DEPARTMEN PHYS T VISIT [facility] HIGH/URGE NT SEVERITY OFFICE 71611 [facility] OUTPATIEN 0 0 WILSON SHE T VISIT 25 PHYSICIAN MINUTES S EMERGENCY [address] [facility] 0 0 WILSON ARI DEPARTMEN MED CTR T VISIT HIGH/URGE NT SEVERITY HOSPITAL ST - 0 0 [facility] OUTPATIEN T MEDICALCE NTER EMERGENCY 63100 ST 0 0 WILSON DEPARTMEN T VISIT MEDICALCE MODERATE NTER SEVERITY EMERGENCY 48151 EMERGENCY VEST ANA 0 0 CARE DEPARTMEN PHYS T VISIT [facility] HIGH/URGE NT SEVERITY OFFICE 48910 [facility], OUTPATIEN 0 0 WILSON CANDIDO T VISIT 15 PHYSICIAN MINUTES S OFFICE [address]74 [facility], OUTPATIEN 0 0 WILSON CANDIDO T VISIT 25 PHYSICIAN MINUTES S
--- OUTSIDE RECORDS SUMMARY | 2017-03-29 02:19 | External Medical Summary Rpt | CCD ---
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 [facility] THERAPY 7 CHIROPRAC TQS 1/> TIC REGIONS CENTER EACH 15 MINUTES CHIROPRAC 28127 [facility] 7 CH[facility]RAC MANIPULAT TIC [facility] SPINAL 3-4 REGIONS CHIROPRAC 45366 [facility] TIC 7 [facility]OPRAC MANIPULAT TIC [facility] SPINAL 3-4 [facility]IONS MANUAL 23419 [facility] 7 CHIROPRAC TQS 1/> TIC REGIONS CENTER EACH 15 MINUTES APPLICATI 32307 [facility] 7 [facility]AC MODALITY TIC 1/> AREAS CENTER HOT/COLD PACKS [facility]AC 46171 [facility] P[facility] TIC 7 CHIROPRAC MANIPLTV TIC TX CENTER EXTRASPIN AL 1/> REGION APPL 37370 [facility] MODALITY 7 CHIROPRAC CHIROPRAC 1/> AREAS TIC TIC TRACTION CENTER CENTER MECHANICA L APPL 20728 [facility] MODALITY 7 CHIROPRAC 1/> AREAS TIC TRACTION CENTER MECHANICA L APPL 58095 [facility] MODALITY 7 CHIROPRAC 1/> AREAS TIC ELEC CENTER STIMJ UNATTENDE D CHIROPRAC 14705 [facility] JODIE TIC 7 CHIROPRAC MANIPLTV TIC TX CENTER EXTRASPIN AL 1/> REGION APPLICATI 75579 [facility] ON 7 CHIROPRAC CHIROPRAC MODALITY TIC TIC 1/> AREAS CENTER CENTER HOT/COLD PACKS MANUAL 92290 [facility] THERAPY 7 CHIROPRAC TQS 1/> TIC REGIONS CENTER [place] [address] [facility] JODIE 1/> AREAS 7 CHIROPRAC EACH 15 TIC MINUTES CENTER MASSAGE CHIROPRAC 52447 [facility] J[facility] TIC 7 CH[facility]OPRAC MANIPULAT TIC [facility] SPINAL 3-4 REGIONS CHIROPRAC 68525 [facility] LUKING TIC 7 CHIROPRAC MANIPULAT TIC [facility] SPINAL 3-4 REGIONS MANUAL 17201 [facility] L[facility] THERAPY 7 CHIROPRAC TQS 1/> TIC REGIONS CENTER EACH 15 MINUTES APPLICATI 50531 [facility] ON 7 CHIROPRAC CHIROPRAC MODALITY TIC TIC 1/> AREAS CENTER CENTER HOT/COLD PACKS CHIROPRAC 03159 [facility] L[facility] TIC 7 CHIROPRAC MANIPLTV TIC TX CENTER EXTRASPIN AL 1/> REGION APPL 07982 [facility] MODALITY 7 CHIROPRAC 1/> AREAS TIC ELEC CENTER STIMJ UNATTENDE D APPL 04249 [facility] MODALITY 7 CHIROPRAC 1/> AREAS TIC TRACTION CENTER MECHANICA L APPL 99097 [facility] MODALITY 7 CHIROPRAC CHIROPRAC 1/> AREAS TIC TIC TRACTION CENTER CENTER MECHANICA L APPL 42960 [facility] J[facility] MODALITY 7 CHIROPRAC 1/> AREAS TIC ELEC CENTER STIMJ UNATTENDE D CHIROPRAC 23622 [facility] FELICIANO TIC 7 CHIROPRAC MANIPLTV TIC TX CENTER EXTRASPIN AL 1/> REGION APPLICATI 98478 [facility] FELICIANO ON 7 CHIROPRAC MODALITY TIC 1/> AREAS CENTER [place] [address] [facility] PARKER 1/> AREAS 7 CHIROPRAC EACH 15 TIC MINUTES CENTER MASSAGE CHIROPRAC 81811 [facility] PARKER TIC 7 CHIROPRAC MANIPULAT TIC [facility] SPINAL 3-4 REGIONS CHIROPRAC 56230 [facility] PARKER TIC 7 CHIROPRAC MANIPULAT TIC [facility] SPINAL 3-[place] [address] LAN[facility] PARKER 1/> AREAS 7 CHIROPRAC EACH 15 TIC MINUTES CENTER MASSAGE APPLICATI 75303 [facility] SHETTY ON 7 CHIROPRAC MODALITY TIC 1/> AREAS CENTER HOT/COLD PACKS [facility]IROPRAC 88891 [facility] TIC 7 CHIROPRAC MANIPLTV TIC TX CENTER EXTRASPIN AL 1/> REGION APPL 10081 [facility] FELIC[facility] MODALITY 7 CHIROPRAC 1/> AREAS TIC TRACTION CENTER MECHANICA L APPL 32658 [facility] FELICIANO MODALITY 7 CHIROPRAC 1/> AREAS TIC ELEC CENTER STIMJ UNATTENDE D APPL 78233 [facility] 7 CHIROPRAC 1/> AREAS TIC ELEC CENTER STIMJ UNATTENDE D APPL 40676 [facility] PARK[facility] MODALITY 7 CHIROPRAC 1/> AREAS TIC TRACTION CENTER MECHANICA L CHIROPRAC 31981 [facility] FELICIANO TIC 7 CHIROPRAC MANIPLTV TIC TX CENTER EXTRASPIN AL 1/> REGION APPLICATI 97280 [facility] FELICIANO ON 7 CHIROPRAC MODALITY TIC 1/> AREAS CENTER [place] [address] [facility] PARK[facility] 1/> AREAS 7 CHIROPRAC EACH 15 TIC MINUTES CENTER MASSAGE CHIROPRAC 15922 [facility] FELICIANO TIC 7 CHIROPRAC MANIPULAT TIC [facility] SPINAL 3-4 REGIONS THERAPEUT 84996 [facility] FELICIANO IC PX 1/> 7 CHIROPRAC AREAS TIC EACH 15 CENTER MIN EXERCISES CHIROPRAC 79709 [facility] LUKING TIC 7 CHIROPRAC MANIPULAT TIC [facility] [place] [facility] SPINAL 3-[place] [address] LAN[facility] LUKING 1/> AREAS 7 CHIROPRAC EACH 15 TIC MINUTES CENTER MASSAGE CHIROPRAC 13262 [facility] L[facility] TIC 7 CHIROPRAC MANIPLTV TIC TX CENTER EXTRASPIN AL 1/> REGION APPL 97371 [facility] MODALITY 7 CHIROPRAC 1/> AREAS TIC TRACTION CENTER MECHANICA L APPL 69610 [facility] MODALITY 7 CHIROPRAC 1/> AREAS TIC ELEC CENTER STIMJ UNATTENDE D SELF-CARE 65241 [facility]HOME 7 CHIROPRAC MGMT TIC TRAINING CENTER EACH 15 MINUTES APPLICATI 76742 [facility] PHILLIPS ON 7 CHIROPRAC MODALITY TIC 1/> AREAS CENTER HOT/COLD PACKS APPLICATI 02333 [facility] PARKER ON 7 CHIROPRAC MODALITY TIC 1/> AREAS CENTER HOT/COLD PACKS SELF-CARE 05914 [facility] /HOME 7 CHIROPRAC MGMT TIC TRAINING CENTER EACH 15 MINUTES APPL 60957 [facility] P[facility] MODALITY 7 CHIROPRAC 1/> AREAS TIC ELEC CENTER STIMJ UNATTENDE D CHIROPRAC 78861 [facility] TIC 7 CHIROPRAC MANIPLTV TIC TX CENTER EXTRASPIN AL 1/> [place] [address] [facility] JODIE 1/> AREAS 7 CHIROPRAC EACH 15 TIC MINUTES CENTER MASSAGE CHIROPRAC 64444 [facility] FELICIANO TIC 7 CHIROPRAC MANIPULAT TIC [facility] SPINAL 3-4 REGIONS NONEMERGE A0100 LKLP CAC BENNETTS NCY 6 INC TRANSPORT TRANSPORT REGION 9 ATION CO ATION; L TAXI CHIROPRAC 04611 [facility] TIC 6 CHIROPRAC MANIPULAT TIC [facility] SPINAL 3-4 REGIONS THERAPEUT 17207 [facility] BA[facility]UELOS IC PX 1/> 6 CHIROPRAC AREAS TIC EACH 15 CENTER MIN EXERCISES CHIROPRAC 27164 [facility] LARSEN TIC 6 CHIROPRAC MANIPLTV TIC TX CENTER EXTRASPIN AL 1/> REGION CHIROPRAC 44287 [facility] TIC 6 CHIROPRAC MANIPLTV TIC TX CENTER EXTRASPIN AL 1/> REGION APPL 60044 [facility] CHIROPRAC CHIROPRAC 1/> AREAS TIC TIC ELEC CENTER CENTER STIMJ UNATTENDE D THERAPEUT 75290 [facility]OS IC PX 1/> 6 CHIROPRAC AREAS TIC EACH 15 CENTER MIN EXERCISES CHIROPRAC 01660 [facility] TIC 6 CHIROPRAC MANIPULAT TIC [facility] SPINAL 3-4 REGIONS COMPREHEN 01135 THE THE SIVE [address] [place] [address] PANEL COLLECTIO 64970 THE THE N VENOUS [address] [place] [address] VENIPUNCT URE HEMOGLOBI 98369 THE THE N [address] [place] [address] YVETTE A1C BLOOD 55706 THE THE COUNT [address] [place] [address] AUTOMATED CALCIUM 20528 THE THE IONIZED [address] [place] [address] [place] [address] THE THE LIPASE [address] [place] [address] [place] [address] THE THE PARATHORM [address] [place] [address] [place] [address] THE THE AMYLASE [address] [place] [address] [place] [address] THE THE FREE [address] [place] [address] THYROXINE [facility] [place] [address] THE THE THYROID [address] [place] [address] NG HORMONE TSH THERAPEUT 26607 [facility] BA[facility]ELOS IC PX 1/> 6 CHIROPRAC AREAS TIC EACH 15 CENTER MIN EXERCISES CHIROPRAC 33673 [facility] EDDA TIC 6 CHIROPRAC MANIPULAT TIC [facility] SPINAL 3-4 REGIONS APPL 40448 [facility] MODALITY 6 CHIROPRAC CHIROPRAC 1/> AREAS TIC TIC TRACTION CENTER CENTER MECHANICA L CHIROPRAC 48848 [facility] TIC 6 CHIROPRAC MANIPLTV TIC TX CENTER EXTRASPIN AL 1/> REGION CHIROPRAC 53183 [facility] TIC 6 CHIROPRAC MANIPLTV TIC TX CENTER EXTRASPIN AL 1/> REGION APPL 66597 [facility] MODALITY 6 CHIROPRAC CHIROPRAC 1/> AREAS TIC TIC TRACTION CENTER CENTER MECHANICA L CHIROPRAC 09319 [facility] TIC 6 CHIROPRAC MANIPULAT TIC [facility] SPINAL 3-4 REGIONS THERAPEUT 06315 [facility] BA[facility]UELOS IC PX 1/> 6 CHIROPRAC AREAS TIC EACH 15 CENTER MIN EXERCISES THERAPEUT 09401 [facility] IC PX 1/> 6 [facility]IROPRAC AREAS TIC EACH 15 CENTER MIN EXERCISES CHIROPRAC 57047 [facility] TIC 6 CHIROPRAC MANIPULAT TIC [facility] SPINAL 3-4 REGIONS APPL 27497 [facility] MODALITY 6 CHIROPRAC CHIROPRAC 1/> AREAS TIC TIC TRACTION CENTER CENTER MECHANICA L APPL 20542 [facility] MODALITY 6 CHIROPRAC 1/> AREAS TIC ELEC CENTER STIMJ UNATTENDE D CHIROPRAC 48918 [facility] TIC 6 CHIROPRAC MANIPLTV TIC TX CENTER EXTRASPIN AL 1/> REGION CHIROPRAC 99636 [facility] TIC 6 CHIROPRAC MANIPLTV TIC TX CENTER EXTRASPIN AL 1/> REGION SELF-CARE 41182 [facility] /HOME 6 CHIROPRAC MGMT TIC TRAINING CENTER EACH 15 MINUTES CHIROPRAC 07705 [facility] TIC 6 CHIROPRAC MANIPULAT TIC [facility] SPINAL 3-4 REGIONS THERAPEUT 07589 [facility]/> 6 [facility]OPRAC CHIROPRAC AREAS TIC TIC EACH 15 CENTER CENTER MIN EXERCISES SURGICAL L3260 ADVANCED ADVANCED BOOT/SHOE 6 TECHNOLOG TECHNOLOG EACH IES INC IES INC RADIOLOGI 47878 NEVADA RICHARDSON ALL C 6 MEDICAL EXAMINATI IMAGING ON FOOT 2 ASS VIEWS THERAPEUT 26377 [facility] IC PX 1/> 6 CHIROPRAC AREAS TIC EACH 15 CENTER MIN EXERCISES CHIROPRAC 67841 [facility] TIC 6 CHIROPRAC MANIPULAT TIC [facility] SPINAL 3-4 REGIONS APPL 69360 [facility] LANNY BERNSTEIN 6 CHIROPRAC CHIROPRAC 1/> AREAS TIC TIC ELEC CENTER CENTER STIMJ UNATTENDE D CHIROPRAC 08915 [facility] TIC 6 CHIROPRAC MANIPLTV TIC TX CENTER EXTRASPIN AL 1/> REGION CHIROPRAC 70139 [facility] EDDA TIC 6 CHIROPRAC GAR MANIPLTV TIC TX CENTER EXTRASPIN AL 1/> REGION THERAPEUT 36282 [facility] LANNY IC PX 1/> 6 CHIROPRAC CHIROPRAC AREAS TIC TIC EACH 15 CENTER CENTER MIN EXERCISES CHIROPRAC 85973 [facility] TIC 6 CHIROPRAC GAR MANIPULAT TIC [facility] SPINAL 3-4 REGIONS THERAPEUT 30369 [facility] EDDA IC PX 1/> 6 [facility]RAC AREAS TIC EACH 15 CENTER MIN EXERCISES CHIROPRAC 21945 [facility] TIC 6 CHIROPRAC MANIPULAT TIC [facility]ENTER SPINAL 3-4 REGIONS CHIROPRAC 28394 [facility] EDDA TIC 6 CHIROPRAC MANIPLTV TIC TX CENTER EXTRASPIN AL 1/> REGION CHIROPRAC 45498 [facility] TIC 6 CHIROPRAC CHIROPRAC MANIPLTV TIC TIC TX CENTER CENTER EXTRASPIN AL 1/> REGION APPL 97476 [facility] EDDA MODALITY 6 CHIROPRAC 1/> AREAS TIC TRACTION CENTER MECHANICA L CHIROPRAC 15462 [facility] TIC 6 CHIROPRAC MANIPULAT TIC [facility] SPINAL 3-4 REGIONS THERAPEUT 28202 [facility] RILEY IC PX 1/> 6 [facility]IROPRAC AREAS TIC EACH 15 CENTER MIN EXERCISES THERAPEUT 63977 [facility]/> 6 [facility]IROPR[facility] CHIROPRAC AREAS TIC TIC EACH 15 CENTER CENTER MIN EXERCISES CHIROPRAC 98093 [facility] TIC 6 CHIROPRAC MANIPULAT TIC [facility] CENTER SPINAL 3-4 REGIONS CHIROPRAC 21446 [facility] TIC 6 CHIROPRAC MANIPLTV TIC TX CENTER EXTRASPIN AL 1/> REGION COLLECTIO 09488 [facility] N VENOUS 6 Y Y BLOOD [facility] VENIPUNCT URE BLOOD 18971 [facility] UNIVERS COUNT 6 [facility] AUTOMATED BASIC 21076 [facility] METABOLIC 6 Y Y PANEL [facility]OS[facility]ITAL CALCIUM TOTAL PROTHROMB 62727 [facility] IN TIME 6 Y Y [facility] THROMBOPL 93265 [facility] ASTIN 6 Y Y TIME [facility] PARTIAL PLASMA/WH OLE BLOOD [facility]OP[facility]AC 41419 [facility] TIC 6 [facility] GAR MANIPULAT TIC [facility] SPINAL 3-4 REGIONS MANUAL 61803 [facility] THERAPY 6 CHIROPRAC CHIROPRAC TQS 1/> TIC TIC REGIONS CENTER CENTER EACH 15 MINUTES CHIROPRAC 00260 [facility] EDDA TIC 6 CHIROPR[facility] GAR MANIPLTV TIC TX CENTER EXTRASPIN AL 1/> REGION CHIROPRAC 92044 [facility] EDDA TIC 6 CHIROPRAC MANIPLTV TIC TX CENTER EXTRASPIN AL 1/> REGION CHIROPRAC 32091 [facility] TIC 6 CHIROPRAC MANIPULAT TIC [facility] CENTER SPINAL 1-2 REGIONS MANUAL 50122 [facility] EDDA THERAPY 6 CHIROPRAC TQS 1/> TIC REGIONS CENTER EACH 15 MINUTES THERAPEUT 75507 [facility] IC PX 1/> 6 CHIROPRAC CHIROPRAC AREAS TIC TIC EACH 15 CENTER CENTER MIN EXERCISES THERAPEUT 85592 [facility] IC PX 1/> 6 CHIROPRAC CHIROPRAC AREAS TIC TIC EACH 15 CENTER CENTER MIN EXERCISES CHIROPRAC 00590 [facility] TIC 6 CHIROPRAC GAR MANIPULAT TIC [facility] CENTER SPINAL 3-4 REGIONS CHIROPRAC 02408 [facility] BAÑUELOS TIC 6 CHIROPRAC GAR MANIPLTV TIC TX CENTER EXTRASPIN AL 1/> REGION CHIROPRAC 81420 [facility] BAÑUELOS TIC 6 CHIROPRAC MANIPLTV TIC TX CENTER EXTRASPIN AL 1/> REGION APPL 89237 [facility] MODALITY 6 CHIROPRAC CHIROPRAC 1/> AREAS TIC TIC TRACTION CENTER CENTER MECHANICA L THERAPEUT 50903 [facility] IC PX 1/> 6 CHIROPRAC AREAS TIC EACH 15 CENTER MIN EXERCISES CHIROPRAC 75838 [facility] BAÑUELOS TIC 6 CHIROPRAC MANIPULAT TIC [facility] CENTER SPINAL 3-4 REGIONS CHIROPRAC 81064 [facility] TIC 6 CHIROPRAC GAR MANIPULAT TIC [facility] CENTER SPINAL 3-4 REGIONS THERAPEUT 95439 [facility] IC PX 1/> 6 [facility]OPRAC GAR AREAS TIC EACH 15 CENTER MIN EXERCISES APPL 87880 [facility] MODALITY 6 CHIROPRAC CHIROPRAC 1/> AREAS TIC TIC TRACTION CENTER CENTER MECHANICA L CHIROPRAC 15112 [facility] TIC 6 CHIROPRAC GAR MANIPLTV TIC TX CENTER EXTRASPIN AL 1/> REGION CHIROPRAC 62201 [facility] TIC 6 CHIROPRAC GAR MANIPLTV TIC TX CENTER EXTRASPIN AL 1/> REGION APPL 02234 [facility] MODALITY 6 CHIROPRAC CHIROPRAC 1/> AREAS TIC TIC TRACTION CENTER CENTER MECHANICA L THERAPEUT 52805 [facility] IC PX 1/> 6 CHIROPRAC GAR AREAS TIC EACH 15 CENTER MIN EXERCISES CHIROPRAC 09801 [facility] TIC 6 CHIROPRAC GAR MANIPULAT TIC B[facility] CENTER SPINAL 3-4 REGIONS CHIROPRAC 96177 [facility] TIC 6 CHIROPRAC MANIPULAT TIC [facility] CENTER SPINAL 3-4 REGIONS MANUAL 73594 [facility] THERAPY 6 CHIROPRAC TQS 1/> TIC REGIONS CENTER EACH 15 MINUTES THERAPEUT 70615 [facility] IC P[place] 1/> 6 CHIROPRAC CHIROPRAC AREAS TIC TIC EACH 15 CENTER CENTER MIN EXERCISES CHIROPRAC 89412 [facility] BAÑUELOS TIC 6 CHIROPRAC MANIPLTV TIC TX CENTER EXTRASPIN AL 1/> REGION CHIROPRAC 76088 [facility] TIC 6 CHIROPRAC MANIPLTV TIC TX CENTER EXTRASPIN AL 1/> REGION THERAPEUT 61911 [facility] IC PX 1/> 6 CHIROPRAC CHIROPRAC AREAS TIC TIC EACH 15 CENTER CENTER MIN EXERCISES CHIROPRAC 00584 [facility] TIC 6 CHIROPRAC MANIPULAT TIC [facility] SPINAL 3-4 REGIONS MANUAL 58959 [facility] THERAPY 6 CHIROPRAC TQS 1/> TIC REGIONS CENTER EACH 15 MINUTES MANUAL 21776 [facility] THERAPY 6 CHIROPRAC TQS 1/> TIC REGIONS CENTER EACH 15 MINUTES CHIROPRAC 32232 [facility] TIC 6 CHIROPRAC MANIPULAT TIC B[facility] CENTER SPINAL 3-4 REGIONS THERAPEUT 84934 [facility] IC PX 1/> 6 CHIROPRAC CHIROPRAC AREAS TIC TIC EACH 15 CENTER CENTER MIN EXERCISES CHIROPRAC 78634 [facility] TIC 6 CHIROPRAC MANIPLTV TIC TX CENTER EXTRASPIN AL 1/> REGION CHIROPRAC 86984 [facility] TIC 6 CHIROPRAC MANIPLTV TIC TX CENTER EXTRASPIN AL 1/> REGION THERAPEUT 27196 [facility]/> 6 CHIROPRAC CHIROPRAC AREAS TIC TIC EACH 15 CENTER CENTER MIN EXERCISES CHIROPRAC 72593 [facility] TIC 6 CHIROPRAC MANIPULAT TIC B[facility] CENTER SPINAL 3-4 REGIONS MANUAL 77249 [facility] EDDA THERAPY 6 CHIROPRAC TQS 1/> TIC REGIONS CENTER EACH 15 MINUTES MANUAL 52038 [facility] EDDA THERAPY 6 CHIROPRAC GAR TQS 1/> TIC REGIONS CENTER EACH 15 MINUTES THERAPEUT 39927 [facility] IC PX 1/> 6 CHIROPRAC CHIROPRAC AREAS TIC TIC EACH 15 CENTER CENTER MIN EXERCISES CHIROPRAC 88520 [facility] BAÑUELOS TIC 6 [facility] GAR MANIPULAT TIC [facility] SPINAL 3-4 REGIONS [facility] 06354 [facility] T[facility] 6 [facility] GAR MANIPLTV TIC TX CENTER EXTRASPIN AL 1/> REGION CHIROPRAC 00966 KURTISVTRAY BAÑUELOS TIC 6 CHIROPRAC MANIPLTV TIC TX CENTER EXTRASPIN AL 1/> REGION [facility] 95329 [facility] T[facility] 6 [facility] MANIPULAT T[facility] SPINAL 1-2 REGIONS THERAPEUT 59196 [facility] PX 1/> 6 [facility]OP[facility]IROPRAC AREAS TIC TIC EACH 15 CENTER CENTER MIN EXERCISES MANUAL 24463 [facility] 6 [facility] TQS 1/> TIC [facility] C[facility] EACH 15 MINUTES [facility] 61080 [facility] TIC 6 [facility] GAR MANIPULAT TIC [facility] SPINAL 3-4 REGIONS [facility]IR[facility]AC 44368 [facility] TIC 6 [facility] GAR MANIPLTV TIC TX CENTER EXTRASPIN AL 1/> REGION [facility]IROP[facility]AC 72427 [facility] TIC 6 [facility] GAR MANIPLTV TIC TX CENTER EXTRASPIN AL 1/> REGION [facility]OP[facility]AC 95789 [facility] T[facility] 6 [facility]OP[facility]OP[facility] MANIPULAT TIC [facility] CENTER SPINAL 3-4 REGIONS [facility]IROP[facility]AC 28752 [facility] TIC 5 [facility] GAR MANIPULAT TIC [facility] SPINAL 1-2 REGIONS [facility]IROP[facility]AC 00345 [facility] TIC 5 [facility] GAR MANIPULAT TIC [facility] SPINAL 1-2 REGIONS THERAPEUT 21294 [facility]/> 5 [facility] GAR AREAS TIC EACH 15 CENTER MIN EXERCISES CHIROPRAC 77181 FALNAYANA BAÑUELOS TIC 5 CHIROPRAC GAR MANIPLTV TIC TX CENTER EXTRASPIN AL 1/> REGION [facility]OP[facility]AC 89576 [facility] 5 CHIROPRAC CHIROPRAC MANIPLTV TIC TIC TX CENTER CENTER EXTRASPIN AL 1/> REGION [facility]OP[facility]AC 71442 [facility] 5 [facility]OP[facility] MANIPULAT TIC [facility] CENTER SPINAL 1-2 REGIONS THERAPEUT 99492 [facility] IC PX 1/> 5 [facility] GAR AREAS TIC EACH 15 CENTER MIN EXERCISES [facility] 76517 [facility] TIC 5 [facility] GAR MANIPULAT TIC EBN TX CENTER SPINAL 3-4 REGIONS [facility]OP[facility]AC 18905 [facility] TIC 5 [facility] GAR MANIPLTV TIC TX CENTER EXTRASPIN AL 1/> REGION RADEX 30076 RADIOLOGY BRANDSER FOOT 5 SHEA COMPLETE ASSOCIATE MINIMUM 3 S OF NOTH VIEWS [facility]OP[facility] 05308 [facility] TIC 5 [facility] GAR MANIPLTV TIC TX CENTER EXTRASPIN AL 1/> REGION [facility]AC 54734 [facility] 5 [facility]OPRAC [facility] MANIPULAT TIC [facility] CENTER SPINAL 1-2 REGIONS THERAPEUT 77974 [facility] IC PX 1/> 5 [facility] GAR AREAS TIC EACH 15 CENTER MIN EXERCISES THERAPEUT 47448 [facility] IC PX 1/> 5 [facility] GAR AREAS TIC EACH 15 CENTER MIN EXERCISES [facility] 92910 [facility] TIC 5 [facility] GAR MANIPULAT TIC [facility] SPINAL 1-2 REGIONS [facility]IROPRAC 70232 [facility] TIC 5 [facility] GAR MANIPLTV TIC TX CENTER EXTRASPIN AL 1/> REGION [facility]IROP[facility]AC 50872 [facility] 5 [facility] CH[facility]OPRAC MANIPULAT TIC T[facility] CENTER SPINAL 1-2 REGIONS THERAPEUT 45784 [facility] IC PX 1/> 5 [facility] GAR AREAS TIC EACH 15 CENTER MIN EXERCISES [facility] 77925 [facility] TIC 5 [facility] GAR MANIPLTV TIC TX CENTER EXTRASPIN AL 1/> REGION THERAPEUT 32421 [facility] IC PX 1/> 5 [facility] GAR AREAS TIC EACH 15 CENTER MIN EXERCISES [facility] 96365 [facility] 5 [facility] MANIPULAT TIC [facility] CENTER SPINAL 1-2 REGIONS [facility] 96483 [facility] MANIPLTV TIC [facility] CENTER EXTRASPIN AL 1/> REGION [facility]IROP[facility]AC 99161 [facility] MANIPLTV TIC [facility] C[facility] CENTER EXTRASPIN AL 1/> REGION [facility] 95482 [facility] MANIPULAT TIC [facility] C[facility] SPINAL 1-2 REGIONS CHIROPRAC 24841 [facility] T[facility] 5 [facility] GAR MANIPLTV TIC TX CENTER EXTRASPIN AL 1/> REGION [facility]IROP[facility]AC 63192 [facility] T[facility] 5 [facility] GAR MANIPULAT T[facility] SPINAL 1-2 REGIONS CHIROPRAC 51218 [facility] 5 [facility] GAR MANIPLTV TIC TX CENTER EXTRASPIN AL 1/> REGION CHIROPRAC 99447 [facility] T[facility] 5 [facility] GAR MANIPULAT T[facility] SPINAL 1-2 REGIONS [facility]IROPRAC 68010 [facility] 5 [facility] GAR MANIPULAT T[facility] SPINAL 1-2 REGIONS [facility]OP[facility]AC 14676 [facility] 5 [facility] GAR MANIPLTV TIC TX CENTER EXTRASPIN AL 1/> REGION CHIROPRAC 23496 [facility] [facility]OSPITAL[facility] BAÑUELOS TIC 5 CHIROPRAC GAR MANIPLTV TIC TX CENTER EXTRASPIN AL 1/> REGION CHIROPRAC 39435 [facility] CHIROPRAC GAR MANIPULAT TIC BEN [place] CENTER SPINAL 1-2 REGIONS THERAPEUT 70840 LANNY BAÑUELOS IC PX 1/> 5 CHIROPRAC GAR AREAS TIC EACH 15 CENTER MIN EXERCISES THERAPEUT 62792 LANNY BAÑUELOS IC PX 1/> 5 CHIROPRAC GAR AREAS TIC EACH 15 CENTER MIN EXERCISES CHIROPRAC 19159 LANNY BAÑUELOS TIC 5 CHIROPRAC GAR MANIPULAT TIC BEN [place] CENTER SPINAL 1-2 REGIONS CHIROPRAC 25948 LANNY BAUÑELOS TIC 5 CHIROPRAC GAR MANIPLTV TIC TX CENTER EXTRASPIN AL 1/> REGION CHIROPRAC 05689 LANNY BAÑUELOS TIC 5 CHIROPRAC GAR MANIPULAT TIC BEN TX CENTER SPINAL 1-2 REGIONS CHIROPRAC 97842 LANNY BAÑUELOS TIC 5 CHIROPRAC GAR MANIPLTV TIC TX CENTER EXTRASPIN AL 1/> REGION THERAPEUT 58866 LANNY BAÑUELOS IC PX 1/> 5 CHIROPRAC GAR AREAS TIC EACH 15 CENTER MIN EXERCISES THERAPEUT 04347 LANNY BAÑUELOS IC PX 1/> 5 CHIROPRAC GAR AREAS TIC EACH 15 CENTER MIN EXERCISES CHIROPRAC 66374 KURTISNAYANA EDDA TIC 5 CHIROPRAC GAR MANIPLTV TIC TX CENTER EXTRASPIN AL 1/> REGION CHIROPRAC 80939 LANNY BAÑUELOS TIC 5 CHIROPRAC GAR MANIPULAT TIC BEN TX CENTER SPINAL 1-2 REGIONS CHIROPRAC 43689 KURTISNAYANA BAÑUELOS TIC 5 CHIROPRAC GAR MANIPLTV TIC TX CENTER EXTRASPIN AL 1/> REGION CHIROPRAC 69249 LANNY BAÑUELOS TIC 5 CHIROPRAC GAR MANIPULAT TIC BEN TX CENTER SPINAL 1-2 REGIONS CHIROPRAC 89800 ASHLYRAY LANNY TIC 5 CHIROPRAC CHIROPRAC MANIPULAT TIC TIC BEN TX CENTER CENTER SPINAL 1-2 REGIONS CHIROPRAC 68997 KURTISNAYANA EDDA TIC 5 CHIROPRAC GAR MANIPLTV TIC TX CENTER EXTRASPIN AL 1/> REGION CHIROPRAC 58472 ASLHYRAY EDDA TIC 5 CHIROPRAC GAR MANIPULAT TIC BEN TX CENTER SPINAL 3-4 REGIONS CHIROPRAC 23414 LANNY BAÑUELOS TIC 5 CHIROPRAC GAR MANIPULAT TIC BEN TX CENTER SPINAL 1-2 REGIONS CHIROPRAC 56700 LANNY BAÑUELOS TIC 5 CHIROPRAC GAR MANIPULAT TIC BEN TX CENTER SPINAL 1-2 REGIONS RADEX 62513 THALIA CORTEZ KIMBERLEY FOOT 5 MEDICAL COMPLETE IMAGING MINIMUM 3 ASS VIEWS CRTCHS E0114 ADVANCED ADVANCED UNDARM 5 TECHNOLOG TECHNOLOG OTH THAN IES INC IES INC WOOD PAIR PAD TIP&HNDGR IP CHIROPRAC 79244 LANNY BAÑUELOS TIC 5 CHIROPRAC GAR MANIPULAT TIC [facility] SPINAL 1-[address] [place] [address] LUI CARTERO HEAD/BRAI 5 NAL N W/O RADIOLOGY CONTRAST INC. MATERIAL RADIOLOGI 90712 LUI Fischer 5 NAL ADA EXAMINATI RADIOLOGY ON CHEST INC. SINGLE VIEW FRONTAL MICROSURG 26506 [place] TQS REQ 5 MEDICAL JUS USE SERV OPERATING FOUNDATIO N MICROSCOP E UNLISTED 63730 [place] PROCEDURE 5 MEDICAL JUS NERVOUS SERV SYSTEM FOUNDATIO N ARTL 90099 [place] CATHJ/CAN 5 MEDICAL ZOH NULJ SERVICES MNTR/GERMAN SFUSION SPX PRQ ANESTHESI 59445 [place] A 5 MEDICAL ZO INTRACRAN SERVICES IAL VASCULAR PROCEDURE INITIAL 94361 [place] MANCIA INPATIENT 5 MEDICAL L CONSULT SERV NEW/ESTAB FOUNDATIO PT 80 N MIN APPL 00261 COLE GALVAN MODALITY 5 COL COL 1/> AREAS TRACTION MECHANICA L CHIROPRAC 53931 COLECLAUDIA GALVAN TIC 5 COL COL MANIPULAT BEN TX SPINAL 1-2 REGIONS APPL 11644 COLE DOWNINGESON MODALITY 5 COL COL 1/> AREAS ELEC STIMJ UNATTENDE [facility] 38123 [place] ERLANDSON DISCHARGE 5 MEDICAL SHEA DAY SERV MANAGEMEN FOUNDATIO T 30 N MIN/< ECG 18231 [place] BAYLEE CHI ROUTINE 5 MEDICAL ECG SERV W/LEAST FOUNDATIO 12 LDS N I&R ONLY ANKLE L1930 PATIENT PATIENT FOOT 5 AIDS INC AIDS INC ORTHOTIC PLASTIC/O TH MATL PREFAB CANE E0105 PATIENT PATIENT QUAD/3-MA 5 AIDS INC AIDS INC JACIEL ALL MATL ADJUSTBL/ FIX W/TIPS SBSQ 35071 [place] [address] MEDICAL NAN CARE/DAY SERV 25 FOUNDATIO MINUTES N SBSQ 07038 [place] [address] MEDICAL SHEA CARE/DAY SERV 35 FOUNDATIO MINUTES N SBSQ 69177 [place] [address] MEDICAL SARAH CARE/DAY SERV 25 FOUNDATIO MINUTES N SBSQ 14424 [place] [address] MEDICAL SARAH CARE/DAY SERV 25 FOUNDATIO MINUTES N SBSQ 86050 [place] [address] MEDICAL SARAH CARE/DAY SERV 25 FOUNDATIO MINUTES N SBSQ 68527 [place] [address] MEDICAL SHEA CARE/DAY SERV 25 FOUNDATIO MINUTES N SBSQ 86001 [place] [address] MEDICAL SHEA CARE/DAY SERV 25 FOUNDATIO MINUTES N RADIOLOGI 19095 CNTR[place] [address] RADIOLOGY III ROMARIO EXAMINATI ON CHEST [facility]INGLE [facility] [address] [place] [address] MEDICAL JOHN DAY SERV MANAGEMEN FOUNDATIO T 30 N MIN/< INITIAL 06527 [place] [address] MEDICAL SHEA CARE/DAY SERV 70 FOUNDATIO MINUTES N SBSQ 33237 [place] [address] MEDICAL JOHN CARE/DAY SERV 25 FOUNDATIO MINUTES N SBSQ 85902 [facility] 5 MEDICAL CARE/DAY SERV 35 FOUNDATIO MINUTES N SLCTV 94812 [facility] CATH 5 MEDICAL ABD XTRNL SERV CAROTID FOUNDATIO ANGIO N XTRNL CAROTD CIRC SLCTV 05268 [facility] CATH 5 MEDICAL ABD INTRNL SERV CAROTID FOUNDATIO ART ANGIO N INTRCRNL ART SLCTV 72331 [place] [facility] CATH 5 MEDICAL ABD VERTEBRAL SERV ART FOUNDATIO ANGIO N VERTEBRAL ARTERY SLCTV 47312 [place] ALHAJERI CATH 5 MEDICAL ABD CAROTID/I SERV NNOM ART FOUNDATIO ANGIO N INTRCRANL ART GROUND A0425 [facility] MILEAGE 5 MYRANDA WHITMORE PER CO EMS CO EMS STATUTE MILE ECG 38762 [place] BAY[place]E CHI ROUTINE 5 MEDICAL ECG SERV W/LEAST FOUNDATIO 12 LDS N I&[place] [address] [place] SETH KWA ANGIOGRAP 5 MEDICAL HY HEAD SERV W/CONTRAS FOUNDAT[place] T/[place] [address] [place] RASLAU HEAD/BRAI 5 MEDICAL FLA N W/O SERV CONTRAST FOUNDATIO MATERIAL N MRI BRAIN 41291 [place] ESCOTT BRAIN 5 MEDICAL EDW STEM W/O SERV W/CONTRAS FOUNDATIO T N MATERIAL RADIOLOGI 79494 [place] KOLTON C 5 MEDICAL EITAN EXAMINATI SERV ON CHEST [place] [address] [place] RASLAU ANGIOGRAP 5 MEDICAL FLA HY NECK SERV W/CONTRAS FOUNDATIO T/NONCONT N RAST HEMOGLOBI 09272 [facility] PLANOSLER N 5 Y OF EDER FRACTJ/QU NEVADA ANTJ HOSPI ELECTROPH ORESIS AMB A0427 [facility] SERVICE 5 MYRANDA WHITMORE ALS CO EMS CO EMS EMERGENCY TRANSPORT LEVEL 1 RADEX 71042 COLE COLE SPINE 5 COL COL LUMBOSACR AL 2/3 VIEWS APPL 48830 COLE COLE MODALITY 5 COL COL 1/> AREAS TRACTION MECHANICA L CHIROPRAC 64515 COLE COLE TIC 5 COL COL MANIPULAT BEN TX SPINAL 3-4 REGIONS APPL 89501 COLE COLE MODALITY 5 COL COL 1/> AREAS ELEC STIMJ UNATTENDE D CHIROPRAC 35161 COLEKIRTI NOLANON TIC 5 COL COL MANIPLTV TX EXTRASPIN AL 1/> [place] [address] [facility]TR[place] SCALF JOHN ABDOMEN & 4 RADIOLOGY PELVIS W/O CONTRAST MATERIAL BLOOD 20661 [facility] PERIPHERA L INTERP PHYS W/WRIT REPORT ECG 78435 [place] BAYLEE CHI ROUTINE 4 MEDICAL ECG SERV W/LEAST FOUNDATIO 12 LDS N I&R ONLY GROUND A0425 BOB BOB MILEAGE 4 CO CO PER AMBULANCE [place] [address] THALIA CARBALLOCHER HEAD/BRAI 4 MEDICAL ROYER N W/O IMAGING CONTRAST ASS MATERIAL AMB A0427 BOB BOB SERVICE 4 CO CO ALS AMBULANCE AMBULANCE EMERGENCY TAXIN TAXIN TRANSPORT LEVEL 1 [place] [address] ROSEMARIE HOUSTON 1/> AREAS 4 DONNA DONNA EACH 15 MINUTES MASSAGE CHIROPRAC 62112 ROSEMARIE HOUSTON TIC 4 DONNA DONNA MANIPULAT BEN TX SPINAL 3-4 REGIONS [facility] 17113 [facility] 4 [facility] MEDICINE MANAGEMEN UFPA T 30 MIN/< INITIAL 43331 [facility] NAHUM INPATIENT 4 Medicine JR. KIMBERLEY CONSULT NEW/ESTAB PT 55 MIN INITIAL 83460 [facility] SHAINA INPATIENT 4 Medicine DAM SRI CONSULT NEW/ESTAB PT 80 MIN INITIAL [address]/[facility] MEDICINE [address] [place] [address] MADHU DIXON ABDOMEN & 4 Radiologi LUCIANO PELVIS kristen W/O Associate CONTRAST s MATERIAL RADIOLOGI 01418 MADHU DIXON C EXAM 4 Radiologi LUCIANO CHEST 2 kristen VIEWS Associate FRONTAL&L s ATERAL CHIROPRAC 07664 ROSEMARIE HOUSTON TIC 4 DONNA DONNA MANIPULAT BEN TX SPINAL 3-4 [place] [address] ROSEMARIE HOUSTON 1/> AREAS 4 DONNA DONNA EACH 15 MINUTES MASSAGE CHIROPRAC 65314 ROSEMARIE HOUSTON TIC 4 DONNA DONNA MANIPULAT BEN [place] SPINAL 3-4 REGIONS CHIROPRAC 37969 ROSEMARIE HOUSTON TIC 4 DONNA DONNA MANIPULAT BEN [place] SPINAL 3-4 REGIONS THERAPEUT 51061 ROSEMARIE HOUSTON IC PX 1/> 4 DONNA DONNA AREAS EACH 15 MIN EXERCISES HOSPITAL 27461 [facility] 4 EDW EDW DAY MANAGEMEN T 30 MIN/< SBSQ 18478 [facility] 4 EDW EDW CARE/DAY 25 MINUTES SBSQ 14114 [facility] 4 EDW EDW CARE/DAY 25 MINUTES GROUND A0425 BOB BOB MILEAGE 4 CO CO PER AMBULANCE AMBULANCE STATUTE TAXIN TAXIN MILE AMBULANCE A0429 BOB BOB SERVICE 4 CO CO BLS AMBULANCE AMBULANCE EMERGENCY TAXIN TAXIN TRANSPORT INITIAL 02671 [facility] 4 EDW EDW CARE/DAY 50 MINUTES ECG 26266 BROCK BROCK ROUTINE 4 GAR GAR ECG W/LEAST 12 LDS [place] [address] ROSEMARIE HOUSTON 1/> AREAS 4 DONNA DONNA EACH 15 MIN NEUROMUSC REEDUCA CHIROPRAC 73509 ROSEMARIE HOUSTON TIC 4 DONNA DONNA MANIPULAT BEN [place] SPINAL 3-4 REGIONS RADEX 63907 LUBIMANI LUBIMANI ANKLE 4 WILLI WILLI COMPLETE MINIMUM 3 VIEWS OBSERVATI 39827 [facility] N[facility] ON CARE 3 LUZ ELENA HUG DISCHARGE PHYSICIAN SERVI MANAGEMEN T SBSQ 70149 [facility] NAMED [facility] OBSERVATI 3 LUZ ELENA HUG ON PHYSICIAN CARE/DAY SERVI 25 MINUTES INITIAL 33765 [facility] NAMED [facility] OBSERVATI 3 LUZ ELENA HUG ON PHYSICIAN CARE/DAY SERVI 50 MINUTES ECG 10934 CELLAROSI CELLAROSI ROUTINE 3 - YORBA - YORBA ECG PAT PAT W/LEAST 12 LDS I&R ONLY CRITICAL 06049 CELLAROSI CELLAROSI CARE 3 - YORBA - YORBA ILL/INJUR PAT PAT ED PAT[place] INIT 30-[place] [address] CEE CEE RETROPERI 3 RHO RHO TONEAL REAL TIME W/IMAGE LIMITED ECG 59657 OZOR MAR OZOR MAR ROUTINE 3 ECG W/LEAST 12 LDS I&R ONLY ECG 53818 MARCO LARA ROUTINE 3 RYA RYA ECG W/LEAST 12 LDS I&R ONLY CT THORAX 67234 CARLINE MENSAH 3 W/[place] [address] [facility] INF[facility]ION [address] [place] [address] THER MEDICAL MEDICAL PROPH C C ADDL SEQUENTIA L TO 1 HR CALCIUM 91389 [facility]ENS IONIZED [address] [place] [address] MEDICAL MEDICAL C C BLOOD 13905 [facility] COUNT [address] [place] [address] COMPLETE MEDICAL MEDICAL AUTO&[place] [address] [facility] GAMMAGLOB [address] [place] [address] ULIN IGA MEDICAL MEDICAL [place] [address] [facility] INFUSION [address] [place] [address] THERAPY MEDICAL MEDICAL [place] [address] THERAPY/P MEDICAL MEDICAL ROPHYLAXI C C S /DX 1ST TO 1 HR BASIC 03964 [facility] METABOLIC [address] [place] [address] PANEL MEDICAL MEDICAL CALCIUM C C TOTAL INJ J1557 [facility] IMMUNE [address] [place] [address] GLOBULIN MEDICAL MEDICAL IV C C NONLYOPHI LIZED 500 MG INJECTION J1200 [address] DIPHENHYD MEDICAL MEDICAL RAMINE C C HCL UP TO 50 MG INFUSION J7030 [facility] NORMAL [address] [place] [address] SALINE MEDICAL MEDICAL SOLUTION C C 1000 CC INJ J1720 [facility] HYDROCORT [address] [place] [address] ISONE MEDICAL MEDICAL SODIUM C C SUCCINATE TO 100 MG INJECTION J2405 [facility] 3 N N OND[facility]SETR [facility] ON HCL HOSPITA HOSPITA PER 1 MG COLLECTIO 63616 [facility] N VENOUS 3 N N BLOOD [facility] VENIPUNCT HOSPITA HOSPITA URE COMPREHEN 98412 [facility] SIVE 3 N N METABOLIC COMMUNITY COMMUNITY PANEL HOSPITA HOSPITA THERAPEUT 85938 [facility] IC 3 N N INJECTION [facility] IV PUSH HOSPITA HOSPITA EACH NEW DRUG BLOOD 78599 [facility] COUNT 3 N N SMEAR [facility] MCRSCP HOSPITA HOSPITA W/MNL DIFRNTL WBC COUNT BLOOD 97155 [facility] COUNT 3 N N COMPLETE [facility] AUTOMATED HOSPITA HOSPITA THER 48246 [facility] PROPH/DX 3 N N NJX IV [facility] PUSH HOSPITA HOSPITA SINGLE/1S T SBST/[place] [address] [facility] LIPASE 3 N N [facility] [place] [address] [facility] INFUSION 3 N N HYDRATION [facility] EACH HOSPITA [place] [address] [facility] AMYLASE 3 N N [facility] HOSPITA HOSPITA URINE 19513 [facility] 3 N N TEST [facility] VISUAL HOSPITA [place] [address] [facility] MAXILLOFA 3 N N CIAL W/O [facility] CONTRAST HOSPITA HOSPITA MATERIAL GROUND A0425 [facility] MILEAGE 3 Ada-ISHAN WHITMORE PER CO EMS CO EMS STATUTE MILE AMBULANCE A0429 [facility] SERVICE 3 Ada-ISHAN WHITMORE BLS CO EMS CO EMS EMERGENCY TRANSPORT RADEX 05318 [facility] JAM NASAL 3 BONES COMPLETE MINIMUM 3 [place] [address] [facility] FREE [address] [place] [address] THYROXINE MEDICAL MEDICAL C C CREATININ 35578 [facility] E OTHER [address] [place] [address] SOURCE MEDICAL MEDICAL C C GLUCOSE 15813 [facility] BLOOD [address] [place] [address] REAGENT [place] [address] [facility] THYROID [address] [place] [address] STIMULATI MEDICAL MEDICAL NG C C HORMONE TSH URNLS DIP [address] STICK/TAB MEDICAL MEDICAL LET RGNT C C AUTO W/O MICROSCOP Y CALCIUM 14418 [facility] IONIZED [address] [place] [address] MEDICAL MEDICAL C C PROCALCIT 72076 [facility] ONIN [address] [place] [address] (PCT) [place] [address] [facility] ESTROGENS [address] [place] [address] TOTAL MEDICAL MEDICAL C C GONADOTRO 97800 [facility] PIN [address] [place] [address] FOLLICLE MEDICAL MEDICAL [place] [address] [facility] RENIN [address] [place] [address] MEDICAL MEDICAL C C CULTURE 41399 [facility] BACTERIAL [address] [place] [address] MEDICAL MEDICAL QUANTTATI C C VE COLONY COUNT URINE GONADOTRO 95800 [facility] PIN [address] [place] [address] LUTEINIZI MEDICAL MEDICAL NG C C HORMONE INJECTION [id number] CEFTRIAXO [facility] MEDICAL NE SODIUM C C PER 250 MG GROUND A0425 [facility] MILEAGE 3 N SCOT T N SCOT T PER CO EMS CO EMS STATUTE MILE INITIAL 40066 POLA LAMAR MEÑO INPATIENT 3 HOSP MED CONSULT CTR NEW/ESTAB PT 110 MIN THERAPEUT 50357 [facility] IC 3 N N INJECTION [facility] IV PUSH HOSPITA HOSPITA EACH NEW DRUG CULTURE 90385 [facility] BACTERIAL [address] [place] [address] BLOOD MEDICAL MEDICAL AEROBIC C C W/ID ISOLATES GONADOTRO 19257 [facility] PIN [address] [place] [address] CHORIONIC MEDICAL MEDICAL C C QUALITATI VE CRITICAL [address] ILL/INJUR MEDICAL MEDICAL ED C C PATIENT INIT 30-74 MIN INJECTION J2405 [facility] 3 N N [facility] ON HCL HOSPITA HOSPITA PER 1 MG BLOOD 17985 [facility] COUNT 3 N N COMPLETE COMMUNITY COMMUNITY AUTO&AUTO HOSPITA HOSPITA DIFRNTL WBC THER 08089 [facility] PROPH/DX 3 N N NJX IV COMMUNITY COMMUNITY PUSH HOSPITA HOSPITA SINGLE/1S T SBST/[place] [address] [facility] INFUSION 3 N N HYDRATION COMMUNITY COMMUNITY EACH HOSPITA HOSPITA ADDITIONA L HOUR COMPREHEN 21312 [facility] SIVE 3 N N METABOLIC COMMUNITY COMMUNITY [place] [address] [facility] MAGNESIUM [address] [place] [address] [place] [address] [facility] PHOSPHORU [address] [place] [address] S MEDICAL MEDICAL INORGANIC C C BLOOD 41120 [facility] COUNT [address] [place] [address] COMPLETE MEDICAL MEDICAL AUTO&[place] [address] [facility] GAMMAGLOB [address] [place] [address] [place] [address] [facility] HOSPITAL THERAPY MEDICAL MEDICAL PROPHYLAX [place] [address] [facility] HOSPITAL THERAPY/P MEDICAL MEDICAL ROPHYLAXI C C S /DX 1ST TO 1 HR HEPATIC 15744 [facility] FUNCTION [address] [place] [address] PANEL MEDICAL MEDICAL C C BASIC 65862 [facility] METABOLIC [address] [place] [address] PANEL MEDICAL MEDICAL CALCIUM C C TOTAL INJECTION J1561 [facility] IMMUNE [address] [place] [address] GLOBULIN MEDICAL MEDICAL NONLYOPHI C C LIZED 500 MG BASIC 53799 [facility] METABOLIC [address] [place] [address] PANEL MEDICAL MEDICAL CALCIUM C C TOTAL HEPATIC 74204 [facility] FUNCTION [address] [place] [address] [place] [address] [facility] HOSPITAL THERAPY/P MEDICAL MEDICAL ROPHYLAXI C C S /DX 1ST TO 1 [place] [address] [facility] [address] [place] [address] HOSPITAL THERAPY MEDICAL MEDICAL PROPHYLAX C C IS/[place] [address] [facility] GAMMAGLOB [address] [place] [address] MEDICAL IGD IGG C C IGM EACH BLOOD 59145 [facility] COUNT [address] [place] [address] COMPLETE MEDICAL MEDICAL AUTO&[place] [address] [facility] MAGNESIUM [address] [place] [address] [place] [address] [facility] PHOSPHORU [address] [place] [address] S MEDICAL MEDICAL INORGANIC C C INJ IG J1569 [facility] GAMMAGARD [address] [place] [address] LIQ IV MEDICAL MEDICAL NONLYOPHI C C LIZED 500 MG COLLECTIO 49943 [facility] N VENOUS [address] [place] [address] BLOOD MEDICAL MEDICAL VENIPUNCT C C URE CALCIUM 48966 [facility] IONIZED [address] [place] [address] H[place]PITAL [place] [address] [facility] MAGNESIUM [address] [place] [address] [place] [address] [facility] PHOSPHORU [address] [place] [address] HOSPITAL S MEDICAL MEDICAL INORGANIC C C BLOOD 25392 [facility] COUNT [address] [place] [address] HOSPITAL COMPLETE MEDICAL MEDICAL AUTO&[place] [address] [facility]AMMAGLOB [address] [place] [address] [place] [address] [facility] HOSPITAL THERAPY MEDICAL MEDICAL PROPHYLAX C C IS/[place] [address] [facility] HOSPITAL THERAPY/P MEDICAL MEDICAL ROPHYLAXI C C S /DX 1ST TO 1 HR HEPATIC 83234 [facility] HOSPITAL PANEL MEDICAL MEDICAL C C BASIC 86718 [facility] METABOLIC [address] [place] [address] HOSPITAL PANEL MEDICAL MEDICAL CALCIUM C C TOTAL RADIOLOGI 03101 RADIOLOGY DONG C EXAM 3 MEENU CHEST 2 ASSOCIATE VIEWS S [place] NOTH FRONTAL&[place] [address] [facility] HOSPITAL THERAPY MEDICAL MEDICAL PROPHYLAX C C IS/[place] [address] [facility] GAMMAGLOB [address] [place] [address] IGD IGG C C IGM EACH BLOOD 74115 [facility] COUNT [address] [place] [address] HOSPITAL COMPLETE MEDICAL MEDICAL AUTO&AUTO C C DIFRNTL WBC BASIC 96256 [facility] METABOLIC [address] [place] [address] HOSPITAL PANEL MEDICAL MEDICAL CALCIUM C C TOTAL HEPATIC 75357 [facility] HOSPITAL [place] [address] [facility] HOSPITAL THERAPY/P MEDICAL MEDICAL ROPHYLAXI C C S /DX 1ST TO 1 [place] [address] [facility] PHOSPHORU [address] [place] [address] HOSPITAL S [place]ICAL [place] [address] [facility] MAGNESIUM [address] [place] [address] HOSPITAL MEDICAL MEDICAL C C CALCIUM 82134 [facility] IONIZED 3 [facility] MEDICAL MEDICAL C C INJ IG J1569 [facility] GAMMAGARD [address] [place] [address] LIQ IV MEDICAL MEDICAL NONLYOPHI C C LIZED 500 MG HOSPITAL 34779 [facility] DISCHARGE 3 Y OF ALONZO DAY [place] MANAGEMEN I PHY T 30 MIN/< SBSQ 34106 [facility] 3 Y OF TORSTEN CARE/DAY [place] 25 I PHY MINUTES SBSQ 44873 [facility] 3 Y OF ALONZO CARE/DAY [place] 25 I PHY MINUTES SBSQ 26239 [facility] 3 Y OF ALONZO CARE/DAY [place] 25 I PHY MINUTES DXA BONE 09723 [facility] DENSITY 3 Y OF BRU STUDY 1/> [place] SITES I PHY AXIAL SKEL SBSQ 37140 [facility] 3 Y OF ALONZO CARE/DAY [place] 35 I PHY MINUTES SBSQ 80179 [facility] 3 Y OF ALONZO CARE/DAY [place] 25 I PHY MINUTES INITIAL 63920 [facility] 3 Y OF ALONZO CARE/DAY [place] 70 I PHY MINUTES INITIAL 32651 [facility] INPATIENT 3 Y OF TORSTEN CONSULT [place] NEW/ESTAB I PHY PT 110 MIN RADIOLOGI 46182 [facility] EX[facility] 3 Y OF MEENU CHEST 2 [place] VIEWS I PHY FRONTAL&L ATERAL GROUND [id number] [facility] 3 [place] [facility] MILE THERAPEUT 61281 [facility] ACTVITY [address] [place] [address] DIRECT PT MEDICAL MEDICAL CONTACT C C EACH 15 MIN HEPATIC 46942 [facility] FUNCTION [address] [place] [address] PANEL MEDICAL MEDICAL C C RENAL 61101 [facility] FUNCTION [address] [place] [address] PANEL MEDICAL MEDICAL C C CALCIUM 25112 [facility] IONIZED [address] [place] [address] MEDICAL MEDICAL C C THER 11510 [facility] PROPH/DX [address] [place] [address] NJX IV MEDICAL MEDICAL PUSH C C SINGLE/1S T SBST/[place] [address] [facility] MAGNESIUM [address] [place] [address] MEDICAL MEDICAL C C NONINVASI 67211 [facility] VE [address] [place] [address] EAR/PULSE MEDICAL MEDICAL OXIMETRY C C MULTIPLE DETER INJECTION [id number] [facility] CALCIUM [address] [place] [address] GLUCONATE MEDICAL MEDICAL PER 10 C C ML 5% [id number] [facility] DEXTROSE/ [address] [place] [address] WATER MEDICAL MEDICAL C C THERAPEUT 43348 [facility] IC PX 1/> [address] [place] [address] AREAS MEDICAL MEDICAL EACH 15 C C MIN EXERCISES ORTHOTIC 61616 [facility] MGMT&GILBERT [address] [place] [address] [place] UXTR MEDICAL MEDICAL LXTR&/TRN C C K EA 15 PHYSICAL 22293 [facility] THERAPY [address] [place] [address] EVALUATIO MEDICAL MEDICAL N C C COLLECTIO 68238 [facility] N VENOUS [address] [place] [address] BLOOD MEDICAL MEDICAL VENIPUNCT C C URE INJ IG [id number] [facility] GAMMAGARD [address] [place] [address] LIQ IV MEDICAL MEDICAL NONLYOPHI C C LIZED [address] [place] [address] [facility] MAGNESIUM [address] [place] [address] [place] [address] [facility] PHOSPHORU [address] [place] [address] [facility] MEDICAL INORGANIC C C CALCIUM 64829 [facility] IONIZED [address] [place] [address] [place] [address] [facility] INFUSION [address] [place] [address] THERAPY/P MEDICAL MEDICAL ROPHYLAXI C C S /DX 1ST TO 1 HR BASIC 27402 [facility] METABOLIC [address] [place] [address] PANEL MEDICAL [place] [address] [facility] INFUSION [address] [place] [address] THERAPY MEDICAL MEDICAL PROPHYLAX C C IS/[place] [address] [facility] GAMMAGLOB [address] [place] [address] MEDICAL [place] [address] [facility] GAMMAGLOB [address] [place] [address] MEDICAL IGD IGG C C IGM EACH BLOOD 58088 [facility] COUNT [address] [place] [address] COMPLETE MEDICAL MEDICAL AUTO&[place] [address] [facility] INFUSION 2 [facility] THERAPY MEDICAL MEDICAL PROPHYLAX C C IS/DX EA HOUR RHEUMATOI 95709 [facility] D FACTOR 2 [facility] QUANTITAT MEDICAL MEDICAL BEN C C BASIC 13663 [facility] METABOLIC 2 [facility] PANEL MEDICAL MEDICAL [place] [address] [facility]ILDRENS INFUSION 2 [facility] THERAPY/P MEDICAL MEDICAL ROPHYLAXI C C S /DX 1ST TO 1 HR HEPATIC 64349 [facility]DRENS FUNCTION 2 [facility] PANEL MEDICAL MEDICAL C C CALCIUM 91465 [facility] CHILDRENS IONIZED [address] [place] [address] [place] [address] [facility] CHILDREN PHOSPHORU [address] [place] [address] [place] [address] [facility] MAGNESIUM [address] [place] [address] MEDICAL MEDICAL C C RADEX 05463 [facility] HAND [address] [place] [address] VIEWS MEDICAL MEDICAL C C CYCLIC 00378 [facility] CITRULLIN [address] [place] [address] [facility] MEDICAL PEPTIDE C C ANTIBODY EXTRACTAB 25489 [facility] LE [address] [place] [address] NUCLEAR MEDICAL MEDICAL ANTIGEN C C ANTIBODY ANY METHOD RADEX 28085 [facility] SPINE 2 [facility] LUMBOSACR MEDICAL MEDICAL AL /3 C C VIEWS C-REACTIV 49799 [facility] E PROTEIN 2 [facility] MEDICAL MEDICAL C C RADIOLOGI 28165 [facility]ILDRENS C 2 [facility] EXAMINATI MEDICAL MEDICAL ON KNEE C C 1/2 VIEWS SEDIMENTA 41427 [facility]DREN CHILDRENS TION RATE 2 [facility] RBC MEDICAL MEDICAL AUTOMATED C C INJ IG J1569 [facility] [address] LIQ IV MEDICAL MEDICAL NONLYOPHI C C LIZED 500 MG INJ IG J1569 [address] LIQ IV MEDICAL MEDICAL NONLYOPHI C C LIZED 500 [place] [address] [facility] MAGNESIUM [address] [place] [address] [place] [address] [facility] PHOSPHORU [address] [place] [address] S MEDICAL MEDICAL INORGANIC C C CALCIUM 62333 [facility]ILDREN CHILDRENS IONIZED 2 [facility] MEDICAL MEDICAL C C HEPATIC 39247 [facility] CHILDRENS FUNCTION 2 [facility] [place] [place] [address] [facility] CH[facility] INFUSION 2 [facility] HOSPITAL THERAPY/P MEDICAL MEDICAL ROPHYLAXI C C S /DX 1ST TO 1 HR BASIC 04496 [facility] METABOLIC 2 [facility] PANEL [place]ICAL [place] [address] [facility]DREN [facility]ILDRENS INFUSION 2 [facility] THERAPY MEDICAL MEDICAL PROPHYLAX C C IS/DX EA HOUR BLOOD 47905 [facility] COUNT [address] [place] [address] COMPLETE MEDICAL MEDICAL AUTO&[place] [address] [facility] [address] IGD IGG C C IGM EACH URINE 69560 PENDE[facility]TO PENDELETO 2 N CO N CO TEST Easy [facility] COLOR CMPRSN METHS CYTP 76561 PATHOLOGY PICKLESIM CERV/VAG 2 & ER JR ERICA AUTO THIN CYTOLOGY LAYER [place] [address] [facility] PHOSPHORU [address] [place] [address] MEDICAL [place] [address] [facility] MAGNESIUM [address] [place] [address] [place] [address] [facility] [address] IGD IGG C C IGM EACH BLOOD 68467 [facility] COUNT [address] [place] [address] COMPLETE MEDICAL MEDICAL AUTO&[place] [address] [facility]ILDRENS INFUSION 2 [facility] THERAPY MEDICAL MEDICAL PROPHYLAX C C IS/DX EA HOUR BASIC 14974 [facility] METABOLIC 2 [facility] PANEL [place] [address] [facility]ILDREN CHILDRENS INFUSION 2 HOSPITAL HOSPITAL THERAPY/P MEDICAL MEDICAL ROPHYLAXI C C S /DX 1ST TO 1 HR HEPATIC 75099 [facility]DREN CHILDRENS FUNCTION 2 [facility] PANEL MEDICAL MEDICAL C C 5% J7060 CHILDREN CHILDREN DEXTROSE/ 2 [facility] WATER MEDICAL MEDICAL C C INJ IG J1569 [facility]ILDRENS GAMMAGARD [address] [place] [address] LIQ IV MEDICAL MEDICAL NONLYOPHI C C LIZED 500 MG INJ IG J1569 [facility]ILDRENS GAMMAGARD 2 [facility] LIQ IV MEDICAL MEDICAL NONLYOPHI C C LIZED 500 MG 5% J7060 [facility] CHILDRENS DEXTROSE/ 2 [facility] WATER MEDICAL MEDICAL C C DRUG 01403 [facility]DRENS SCREEN 2 [facility] QUANTITAT MEDICAL [place] [address] [facility] INFUSION 2 [facility] THERAPY/P MEDICAL MEDICAL ROPHYLAXI C C S /DX 1ST TO 1 HR BASIC 71323 [facility] METABOLIC [address] [place] [address] PANEL MEDICAL [place] [address] [facility] INFUSION [address] [place] [address] HOSPITAL THERAPY MEDICAL MEDICAL PROPHYLAX C C IS/DX EA HOUR BASIC 96838 [facility] METABOLIC [address] [place] [address] PANEL MEDICAL [place] [address] [facility] PHOSPHORU [address] [place] [address] S MEDICAL [place] [address] [facility] MAGNESIUM [address] [place] [address] MEDICAL MEDICAL C C COLLECTIO 23672 [facility] N VENOUS [address] [place] [address] BLOOD MEDICAL MEDICAL [place] [address] [facility] THYROID [address] [place] [address] STIMULATI MEDICAL MEDICAL [place] [address] [facility] CHILDRENS FREE [address] [place] [address] THYROXINE MEDICAL MEDICAL C C FLOW 82303 [facility] CH[facility] CYTOMETRY 2 [facility] INTERPJ MEDICAL MEDICAL 2-8 C C MARKERS LYMPHOCYT 79722 [facility] E TR [address] [place] [address] MITOGEN/A MEDICAL MEDICAL G INDUCED C C BLASTOGEN ESIS ANTIBODY 93922 [facility] TETANUS [address] [place] [address] MEDICAL MEDICAL C C BLOOD 43512 [facility] COUNT [address] [place] [address] SMEAR MEDICAL MEDICAL MCRSCP C C W/MNL DIFRNTL WBC COUNT HEPATIC 33939 [facility] FUNCTION [address] [place] [address] PANEL MEDICAL MEDICAL C C ANTIBODY 39274 [facility] BACTERIUM [address] [place] [address] NOT MEDICAL MEDICAL ELSEWHERE C C SPECIFIED ANTIBODY 15787 [facility] VARICELLA [address] [place] [address] -[place] [address] MEDICAL IGD IGG C C IGM EACH BLOOD 51735 [facility] COUNT [address] [place] [address] COMPLETE MEDICAL MEDICAL AUTOMATED C C DRUG 40657 [facility] SCREEN [address] [place] [address] QUANTITAT [place]ICAL [place] [address] [facility] [place] WESTERFIE RETROPERI 2 RADIOLOGY LD IV A TONEAL REAL TIME W/IMAGE LIMITED RADIOLOGI 24025 [facility] [place] GENI C EXAM 2 RADIOLOGY LEON CHEST 2 VIEWS FRONTAL&[place] [address] MEDICAL IGD IGG C C IGM EACH GENERAL [address] PANEL MEDICAL MEDICAL C C FLUORESCE [address] NONNFCT MEDICAL MEDICAL AGT ANTB [place] S[place] [address] [facility] MAGNESIUM [address] [place] [address] MEDICAL MEDICAL C C FLOW 18274 [facility] CYTOMETRY [address] [place] [address] INTERPJ MEDICAL MEDICAL 2-8 C C MARKERS [address] INCLUDES MEDICAL MEDICAL FRACTIONS C C IF PERFORMED IMMUNOASS 27855 [facility] AY [address] [place] [address] ANALYTE MEDICAL MEDICAL QUAL/SEMI [place] M[place] [address] [facility] PHOSPHORU [address] [place] [address] S MEDICAL MEDICAL INORGANIC C C ALPHA-FET 11292 [facility] OPROTEIN [address] [place] [address] SERUM MEDICAL MEDICAL C C THROMBOPL 97121 [facility] ASTIN [address] [place] [address] TIME MEDICAL MEDICAL PARTIAL C C PLASMA/WH OLE BLOOD BILE 31027 [facility] ACIDS [address] [place] [address] TOTAL MEDICAL MEDICAL C C PROTHROMB 48762 [facility]IL[facility] IN TIME [address] [place] [address] MEDICAL MEDICAL C C MICROSOMA [address] ANTIBOD[facility] [place] [address] ABDOMINAL 2 [facility] WILSON REAL FT FT TIME DIVYA STOKES W/IMAGE LIMITED GROUND A0425 JERILYN JERILYN MILEAGE 2 [place] PER [place] [address] MICHAEL BAR MICHAEL BAR HEAD/BRAI 2 N W/O CONTRAST MATERIAL AMB A0427 JERILYN JERILYN SERVICE 2 [place] FAY[place] ALS URB[facility] U[facility]AN EMERGENCY [place] [address] MICHAEL BAR MICHAEL BAR THORACIC 2 SPINE W/O CONTRAST MATERIAL RADEX 52500 [facility] [place] RODRIGUES FOOT 2 RADIOLOGY TIFFANY COMPLETE MINIMUM 3 VIEWS THERAPEUT 83446 [facility] ALESSANDRO IC PX 1/> 2 [facility] JOSE DAVID AREAS TIC EACH 15 CENTER MIN EXERCISES CHIROPRAC 34180 [facility] T[facility] 2 [facility] JOSE DAVID MANIPULAT TIC BEN [place] CENTER SPINAL 3-[place] [address] [facility] 1/> AREAS 2 [facility] JOSE DAVID EACH 15 TIC MIN CENTER NEUROMUSC REEDUCA STRAPPING 27931 ACS ACS KNEE 2 PRIMARY PRIMARY CARE CARE PHYSICANS MELVI M M BLOOD [address] COUNT 2 [facility] WILSON COMPLETE FT FT AUTO&AUTO DIVYA STOKES DIFRNTL WBC BASIC [address] METABOLIC 2 [facility] WILSON PANEL FT FT CALCIUM DIVYA STOKES TOTAL URNLS DIP [address] 2 WIL[facility] WILSON STICK/TAB FT FT LET RGNT DIVYA STOKES NON-AUTO W/[place] [address] INFUSION 2 [facility] W[facility] HYDRATION FT FT EACH DIVYA STOKES ADDITIONA L HOUR THER [address] PROPH/DX 2 WIL[facility] WILSON NJX IV FT FT PUSH DIVYA STOKES SINGLE/1S T SBST/DRUG COLLECTIO [address] N VENOUS 2 [facility]IL[facility] WILSON BLOOD FT FT VENIPUNCT DIVYA STOKES URE INJ J1720 [facility] HYDROCORT 2 WILSON RACHEL ISONE FT FT SODIUM DIVYA DIVYA SUCCIN[place] [address] [place] [address] MICHAEL BAR MICHAEL BAR MAXILLOFA 2 CIAL W/[place] [address] [facility] HISTOPLAS 1 [facility] MEDICAL CAPSULATU C C M BLOOD 59464 [facility] CHILDRENS COUNT 1 [facility] COMPLETE MEDICAL MEDICAL AUTOMATED C C GONADOTRO 43256 [facility] CH[facility]DRENS PIN 1 [facility] CHORIONIC MEDICAL MEDICAL C C QUANTITAT BEN UNLISTED 04843 [facility]ENS IMMUNOLOG 1 [facility] Y MEDICAL MEDICAL C C BLOOD 20106 [facility]ILDRENS COUNT 1 [facility] SMEAR [facility] MEDICAL MCRSCP C C W/[place] [address] [facility] CH[facility] PHOSPHORU [address] [place] [address] S [facility] [place] [address] [facility] MAGNESIUM [address] [place] [address] MEDICAL MEDICAL C C COLLECTIO 88257 [facility] CH[facility] N VENOUS [address] [place] [address] BLOOD [facility] MEDICAL VENIPUNCT C C URE COMPREHEN 06127 [facility] CH[facility] SIVE [address] [place] [address] METABOLIC MEDICAL MEDICAL PANEL C C DRUG 42334 [facility] CHILDRENS SCREEN [address] [place] [address] QUANTITAT MEDICAL MEDICAL BEN C C SIROLIMUS RADEX 85864 [facility] [place] KOSTELIC RIBS UNI 1 RADIOLOGY ANA W/POSTERO ANT CH MINIMUM 3 [place] [address] ACS MERCHANT RIB 1 PRIMARY KET FRACTURE CARE UNCOMPLIC PHYSICANS ATED EACH M THERAPEUT 48420 [facility] IC 1 [facility] PROPHYLAC TIC/DX INJECTION SUBQ/[place] [address] [facility] [place] DEBRA HEAD/BRAI 1 RADIOLOGY ROBSON N W/O CONTRAST MATERIAL GONADOTRO 14022 [facility] PIN 1 [facility] CHORIONIC QUALITATI VE INJ J1720 [facility] HYDROCORT 1 [facility] ISONE SODIUM SUCCINATE TO 100 MG FLOW 70729 [facility] CYTOMETRY 1 [facility]OSPITAL HOSPITAL CELL MEDICAL MEDICAL SURF C C MARKER [place] [address] [facility] GAMMAGLOB 1 [facility] ULIN IGA MEDICAL MEDICAL IGD IGG C C IGM EACH RADIOLOGI 20106 [facility]DRENS C EXAM 1 [facility] CHEST 2 MEDICAL MEDICAL VIEWS C C FRONTAL&L ATERAL GENERAL 02391 [facility]DRENS HEALTH 1 [facility] PANEL MEDICAL MEDICAL C C FLUORESCE 61041 [facility]ILDRENS NT 1 [facility] NONNFCT MEDICAL MEDICAL AGT ANTB C C SCREEN EA ANTIBODY URNLS DIP 27318 [facility] CHIL[facility] [address] [place] [address] STICK/TAB MEDICAL MEDICAL LET RGNT C C AUTO W/O MICROSCOP Y ALPHA-FET 98221 [facility] OPROTEIN 1 [facility] SERUM MEDICAL MEDICAL C C CREATININ 01300 [facility] CH[facility]DRENS E OTHER 1 [facility] SOURCE MEDICAL MEDICAL C C FLOW 45114 [facility] CYTOMETRY 1 [facility] CELL MEDICAL MEDICAL SURF C C MARKER TECHL ONLY EA COLLECTIO 01311 [facility] N VENOUS 1 [facility] BLOOD MEDICAL MEDICAL VENIPUNCT C C URE FLOW 03184 [facility] CYTOMETRY 1 [facility] INTERPJ MEDICAL MEDICAL 2-8 C C MARKERS 25 64778 [facility] HYDROXY 1 [facility] INCLUDES MEDICAL MEDICAL FRACTIONS C C IF PERFORMED BILE 39700 [facility] ACIDS 1 [facility] TOTAL MEDICAL MEDICAL C C MICROSOMA 88591 [facility]DR[facility] L 1 [facility] ANTIBODIE MEDICAL MEDICAL S EACH C C PROTEIN 10370 [facility] TOTAL 1 [facility] XCPT MEDICAL MEDICAL [place] [address] [facility] THYROXINE 1 [facility] TOTAL MEDICAL MEDICAL C C BLOOD 86527 [facility] COUNT 1 [facility] SMEAR MEDICAL MEDICAL MCRSCP C C W/[place] [address] [facility] MAGNESIUM 1 [facility] MEDICAL MEDICAL C C IMMUNOASS 73635 [facility] AY 1 [facility] ANALYTE MEDICAL MEDICAL QUAL/SEMI [place] M[place] [address] [facility] PHOSPHORU 1 [facility]PITAL HOSPITAL S MEDICAL MEDICAL INORGANIC C C INCISION 93570 ACS LEHNERT & 1 PRIMARY RAY DRAINAGE CARE ABSCESS PHYSICANS COMPLICAT M ED/MULTIP LE BLOOD 85303 CHERISE CRISTINO SMEAR 1 [facility] INTERP PSC PHYS W/[place] [address] [facility] MAXILLOFA 1 [facility] CIAL W/O CONTRAST MATERIAL GONADOTRO 68549 [facility] PIN 1 [facility] CHORIONIC QUALITATI VE RADIOLOGI 30410 RADIOLOGY LAIB JOHN C EXAM 0 CHEST 2 ASSOCIATE VIEWS S PSC FRONTAL&L ATERAL RADEX 78202 RADIOLOGY LAIB JOHN SPINE 0 CERVICAL ASSOCIATE 4 OR 5 S PSC VIEWS URINE 86589 [facility], 0 W[facility] CANDIDO TEST VISUAL PHYSICIAN COLOR S CMPRSN METHS Encounters Encounter Start End Date Code Location Performer Type Date INITIAL 18508 [facility] PREVENTIV 7 7 [place] E MEDICINE PHYSICIAN NEW PT S AGE 18-39YRS [facility] ST - 7 7 WILSON OUTPATIEN T [facility] EMERGENCY 92577 [facility] 7 7 EMERGENCY DEPARTMEN T VISIT PHYSICIAN HIGH/URGE S NT SEVERITY OFFICE 69053 LANNY COLIN 7 7 [facility] T VISIT TIC 15 CENTER MINUTES [facility] - 7 7 [facility]ALTH[facility] OUTPATIEN E T HOSPITALS OFFICE 76859 OUTPATIEN 7 7 [facility]ALTHCAR T VISIT 5 E MINUTES HOSPITALS OFFICE 84594 [facility] S[facility] OUTPATIEN 7 7 MEDICAL T NEW 45 SERV MINUTES FOUNDATIO N OFFICE 96324 LANNY COLIN 7 7 CHIROPRAC T VISIT TIC 15 CENTER MINUTES OFFICE 95584 [facility] OUTPATIEN 6 6 [place] KANG T VISIT PHYSICIAN 15 S ASSIST MINUTES [facility]OSP[facility] - 6 6 [facility] OUTPATIEN E T HOSPITALS OFFICE 06470 [facility] 6 6 HEALTHCAR T VISIT 5 [facility] EMERGENCY 04283 TYLER GARCIAEY 6 6 PHYSICIAN CURTIS DEPARTMEN S, PLLC T VISIT MODERATE SEVERITY OFFICE 91381 [facility] 6 6 PARMINDER MIN T VISIT HOSPITAL 25 [facility] - 6 6 [facility] T OFFICE 52868 [facility] 6 6 CHIROPRAC T VISIT TIC 15 CENTER MINUTES EMERGENCY 03125 TYLER WANG 6 6 PHYSICIAN CURTIS DEPARTMEN S, PLLC T VISIT MODERATE SEVERITY OFFICE 91512 [facility]PATI 6 6 Y T VISIT 5 [facility] - 6 [facility] 84896 [facility] 6 6 CHIROPRAC GAR T VISIT TIC 15 CENTER [facility] EMERGENCY 16712 [facility] 5 5 EMERGENCY DEPARTMEN T VISIT PHYSICIAN HIGH/URGE S NT SEVERITY OFFICE 18296 ALVIN CARRANZA OUTPATIEN 5 5 MEDICAL JUS T VISIT SERV 15 FOUNDATIO MINUTES N OFFICE 05171 [facility] OUTPATIEN 5 5 Y T VISIT 5 [facility]ERS[facility] - [address] [facility] T OFFICE 30656 [facility] 5 5 CHIROPRAC T VISIT TIC 15 CENTER MINUTES OFFICE 24736 [facility] 5 5 [place] T VISIT REHABILIT 10 ATION MINUTES OFFICE 69636 [place] ERLAND[place] OUTPATIEN 5 5 MEDICAL SHEA T VISIT SERV 25 FOUNDATIO MINUTES [facility] CARDINAL - 5 5 HILL OUTPATIEN REHABILIT T ATION OFFICE 84719 [facility] OUTPATIEN 5 5 Y T VISIT 5 HOSPITAL MINUTES HOSPITAL UN[facility] - 5 5 Y OUTPATIEN HOSPITAL T OFFICE 97904 PAR[facility] TRAN OUTPATIEN 5 5 HOSPITAL MIN T NEW 45 MEDICAL MINUTES ASSO OFFICE 14169 ALVIN GRAHAMSER OUTPATIEN 5 5 MEDICAL JUS T VISIT SERV 25 FOUNDATIO MINUTES N HOSPITAL CARDINAL - 5 5 [facility] IN[facility]IENT [facility]HABILIT ATION EMERGENCY 65348 [facility] CELLAROSI DEPT 5 5 LUZ ELENA - YORBA VISIT EMERGENCY PAT HIGH PHYS SEVERITY& THREAT FUNCJ OFFICE 56852 COLE GALVAN OUTPATIEN 5 5 COL COL T NEW 20 MINUTES EMERGENCY 72535 [facility] GERONIMO ERIC DEPT 4 4 LUZ ELENA VISIT EMERGENCY HIGH PHYS SEVERITY& THREAT [facility] UNIVERSIT - 4 4 Y OF INPATIENT [place] HOS OFFICE 49020 ROSEMARIE HOUSTON OUTPATIEN 4 4 DONNA DONNA T VISIT 15 MINUTES EMERGENCY 57305 MICHELLE HO MICHELLE HO DEPT 4 4 VISIT HIGH SEVERITY& THREAT FUNCJ OFFICE 78303 ROSEMARIE HOUSTON OUTPATIEN 4 4 DONNA DONNA T VISIT [address] 4 4 WILSON DEPARTMEN FT T VISIT DIVYA MODERATE SEVERITY EMERGENCY 29796 [facility] 4 4 DEPARTMEN T VISIT HIGH/URGE NT SEVERITY [facility]PITAL ST - 4 4 WILSON OUTPATIEN FT T DIVYA EMERGENCY 80005 LINDA VARGAS DEPT 3 3 VISIT HIGH SEVERITY& THREAT FUNCJ EMERGENCY 57867 JUSTIN ANDERSON 3 3 SCO SCO DEPARTMEN T VISIT HIGH/URGE NT SEVERITY EMERGENCY 14786 MARCO LARA DEPT 3 3 RYGeorges RYA VISIT HIGH SEVERITY& THREAT [facility] CHILDREN - 3 3 [facility]ERGENC[facility] 72702 [facility] 3 3 N [facility] COMM[facility]ITY T VISIT HOSPITA HIGH/URGE NT SEVERITY [facility] [place] [address] 3 N [facility] [place] [address] 3 N [facility] T HOSPITA EMERGENCY 24194 [facility] 3 3 N [facility] T [facility] HIGH/URGE NT SEVERITY EMERGENCY 84497 DOMINGUEZ MIX 3 3 EITAN EITAN DEPARTMEN T VISIT MODERATE SEVERITY EMERGENCY 30835 CELLAROSI CELLAROSI 3 3 - YORBA - YORBA [facility] PAT PAT T VISIT HIGH/URGE NT SEVERITY HOSPITAL [facility] 3 3 [facility] T C EMERGENCY 59646 [place] VARGAS [facility]PT 3 3 EMERGENCY VISIT SERVICES HIGH SEVERITY& THREAT [facility] [place] [address] 3 N [facility] T HOSPITA EMERGENCY 81459 [place] MIX 3 3 EMERGENCY EITAN DEPARTMEN SERVICES T VISIT MODERATE SEVERITY HOSPITAL [facility]DRENS - 3 3 [facility] T C OFFICE 59374 [facility] 3 3 HOSP MED GRE T VISIT CTR 25 MINUTES OFFICE 60763 [facility] 3 Y OF WILLI [facility] V[facility] 25 I PHY MINUTES OFFICE 69706 [facility] 3 3 Y T VISIT 5 HOSPITAL MINUTES OFFICE 93780 [facility] OUTPATIEN 3 3 HOSP MED GRE T VISIT CTR 15 MINUTES HOSPITAL [facility]ERS - 3 3 [facility] T OFFICE 25444 CHILDRENMarino [facility] OUTPATIEN 3 3 HOSP MED GRE T VISIT CTR 25 MINUTES HOSPITAL CHILDRENS - 3 3 [facility] T C HOSPITAL [facility] 3 3 [facility] OFFICE 78580 [facility]ENS C[facility] OUTPATIEN 3 3 HOSPITAL EITAN T VISIT MEDICAL 25 C MINUTES [facility] 3 3 [facility] T C [facility] 3 3 [facility] T C EMERGENCY 15098 [facility] DEPT 3 3 Y OF VIR VISIT [facility] PHY SEVERITY& THREAT [facility] - 3 3 [facility] T C OFFICE 09470 CHILDRENS SAM RIN OUTPATIEN 2 2 HOSP MED T NEW 45 CTR MINUTES OFFICE 20977 [facility]ENS CUTHRELL OUTPATIEN 2 2 HOSPITAL EITAN T VISIT MEDICAL 25 C MINUTES HOSPITAL CHILDR[facility] - 2 2 [facility] T C OFFICE 72179 [facility] CUTHRELL OUTPATIEN 2 2 HOSP MED EITAN T VISIT CTR 25 MINUTES HOSPITAL [facility] 2 2 [facility] 71395 [place] [facility] PREVENTIV 2 2 N CO N CO [facility] 18[facility]39 [facility] - 2 2 [facility] T C OFFICE 23415 CHILDRENS FILIPOVIC OUTPATIEN 2 2 HOSP MED H EMILY T VISIT CTR 25 MINUTES OFFICE 38660 [facility]DRENS RAUL OUTPATIEN 2 2 HOSPITAL MAR T VISIT MEDICAL 25 C MINUTES [facility] 09169 [place] [place] OUTPATIEN 2 2 HOSPITAL GRE T VISIT MEDICAL 40 C MINUTES OFFICE 48220 [facility] OUTPATIEN 2 2 HOSPITAL T VISIT MEDICAL 15 C MINUTES [facility] 2 2 [facility] 59331 [facility] 2 2 HOSPITAL T NEW MEDICAL MINUTES C EMERGENCY 31961 [facility] DEPT 2 2 PRIMARY VISIT CARE HIGH PHYSICANS SEVERITY& M THREAT FUNCJ EMERGENCY 53915 [facility] 2 2 PRIMARY EDW DEPARTMEN CARE T VISIT PHYSICANS HIGH/URGE M NT SEVERITY OFFICE 07477 [facility] 2 2 HOSPITAL T VISIT MEDICAL 40 C MINUTES [facility] - OTHER 2 2 [facility] - 2 2 [facility] EMERGENCY 75158 [facility] DEPT 2 2 LUZ ELENA VISIT EMERGENCY HIGH PHYS SEVERITY& THREAT FUNCJ EMERGENCY 28755 [facility] 2 2 PRIMARY DEPARTMEN CARE T VISIT PHYSICANS HIGH/URGE M NT SEVERITY EMERGENCY 45084 [facility] 2 2 PRIMARY DEPARTMEN CARE T VISIT PHYSICANS MODERATE M SEVERITY OFFICE 92094 [facility] 2 2 [facility] T NEW 30 TIC MINUTES CENTER EMERGENCY 87456 ACS 2 2 PRIMARY DEPARTMEN CARE T VISIT PHYSICANS HIGH/URGE M NT SEVERITY EMERGENCY 79791 [facility] DEPT 2 2 VISIT HIGH SEVERITY& THREAT [facility] ST - 2 2 [facility] OUTPATI[facility] FT T [facility] EMERGENCY 644[address] ST [facility] DIVYA HIGH/URGE NT SEVERITY EMERGENCY 06308 [facility] DIVYA 2 2 DIANA DIANA DEPARTMEN T VISIT HIGH/URGE NT SEVERITY OFFICE 81214 [facility] YAZIGI OUTPATIEN 1 1 NAD NAD T VISIT 25 MINUTES HOSPITAL [facility] - OTHER 1 1 HOSPITAL MEDICAL C OFFICE 61997 [facility] OUTPATIEN 1 1 HOSPITAL T VISIT MEDICAL 40 C MINUTES EMERGENCY 70981 [facility] 1 1 PRIMARY KET DEPARTMEN CARE T VISIT PHYSICANS HIGH/URGE M NT SEVERITY EMERGENCY 52179 [facility] 1 1 PRIMARY PHI DEPARTMEN CARE T VISIT PHYSICANS MODERATE M SEVERITY EMERGENCY 83734 [facility]URGE NT SEVERITY [facility] - 1 1 [facility] T OFFICE 83054 CHILDRENS YAZIGI OUTPATIEN 1 1 HOSP MED NAD T VISIT CTR 25 MINUTES HOSPITAL [facility] - OTHER 1 1 HOSPITAL MEDICAL C OFFICE 29872 [facility] OUTPATIEN 1 1 HOSPITAL T VISIT MEDICAL 40 C MINUTES EMERGENCY [address] [facility] 1 [facility] LOW/MODER SEVERITY [facility] - 1 1 [facility] [id number] [facility] [address] DEPARTMEN CARE T VISIT PHYSICANS HIGH/URGE M NT SEVERITY [facility] - 1 1 HOSPITAL OUTPATIEN T EMERGENCY 58924 [facility] 1 1 HOSPITAL DEPARTMEN T VISIT MODERATE SEVERITY EMERGENCY 39497 [facility] 1 1 PRIMARY DEPARTMEN CARE T VISIT PHYSICANS HIGH/URGE M NT SEVERITY HOSPITAL [facility] - 1 1 [facility] OUTPATIEN T EMERGENCY 26786 [facility] 1 1 EAST DEPARTMEN T VISIT MODERATE SEVERITY EMERGENCY 65151 [facility] 0 0 CARE DEPARTMEN PHYS T VISIT [facility] H[facility]/URGE NT SEVERITY OFFICE [address]34[address] [facility] 0 0 [place] SHE T VISIT 25 PHYSICIAN MINUTES S EMERGENCY 52840 EMERGENCY EMERY [facility] 0 0 CARE DEPARTMEN PHYS T VISIT [facility] HIGH/URGE NT SEVERITY OFFICE [address] [facility] 0 0 [facility] T VISIT 25 PHYSICIAN MINUTES S EMERGENCY 07106 [facility] 0 0 [facility] DEPARTMEN MED CTR T VISIT HIGH/URGE NT SEVERITY [facility]OSPITAL ST - 0 0 [facility] OUTPATIEN T MEDICALCE NTER EMERGENCY 77177 ST 0 0 [facility] DEPARTMEN T VISIT MEDICALCE MODERATE NTER SEVERITY EMERGENCY 82072 EMERGENCY [facility] 0 0 CARE DEPARTMEN PHYS T VISIT [facility] HIGH/URGE NT SEVERITY OFFICE [address]80[address] [facility], OUTPATIEN 0 0 [facility] CANDIDO T VISIT 15 PHYSICIAN MINUTES S OFFICE [address] [facility], OUTPATIEN 0 0 [facility] CANDIDO T VISIT 25 PHYSICIAN MINUTES S
--- OUTSIDE RECORDS SUMMARY | 2017-03-29 02:24 | External Medical Summary Rpt | CCD ---
Author Author , DEION ALBARRAN Address Unknown Phone [email or web address] Immunization Name Date Rout CVX Reac Dose Comm Prov Is Faci e tion ent ider Refu lity Give sed n Td 06-0 9 999 Hist H196 No H196 (tip 7-20 oric lt), 02 al Info adso rmat rbed ion - Sour ce Unsp ecif ied Hep 09-2 8 999 Hist H196 No H196 B, 5-20 oric ped/ 01 al adol Info rmat ion - Sour ce Unsp ecif ied Hep 05-0 8 999 Hist H196 No H196 B, 8-20 oric ped/ 01 al adol Info rmat ion - Sour ce Unsp ecif ied Hep 03-2 8 999 Hist H196 No H196 B, 0-20 oric ped/ 01 al adol Info rmat ion - Sour ce Unsp ecif ied
--- OUTSIDE RECORDS SUMMARY | 2017-03-29 02:24 | External Medical Summary Rpt | CCD ---
Author Author , DEION ALBARRAN Address Unknown Phone [email or web address] Immunization Name Date Rout CVX Reac Dose [...]
== END 2017-03-28 02:27 | disposition home or self-care (01) ==
LOC: ER 00:13
DX: H72.91 Unspecified perforation of tympanic membrane, right ear (principal); F17.210 Nicotine dependence, cigarettes, uncomplicated; N28.9 Disorder of kidney and ureter, unspecified; D64.9 Anemia, unspecified; E03.9 Hypothyroidism, unspecified; Z88.1 Allergy status to other antibiotic agents; V49.3XXA Car occupant (driver) (passenger) injured in unspecified nontraffic accident, initial encounter; Y92.410 Unspecified street and highway as the place of occurrence of the external cause

== ENCOUNTER 2017-03-28 13:35 | Emergency (ER) | payer MEDICAID ==
[~2017-03-28] VITALS: Ht 154.9 cm; Wt 47.6 kg
--- NOTE | 2017-03-28 14:01 | Emergency Room Report ---
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 N Clinical Suspician of Infection? N Mental Status: 1 - Regular (Normal Baseline) Sepsis Risk:Low Sepsis Risk Have you (or family members/close friends) recently traveled outside the [place]? N If Yes, where/when: Have you had exposure to infectious disease within the past month? N TB? Other? Specify: Source patient, RN notes reviewed Exam Limitations no limitations Comment Pt has a history of Oxford's Disease and was seen here last night with a ruptured ear drum and this morning is having a lot twitching and feels her Ca is low Cardiac Chest Pain Chest pain indicative of cardiac No ALLERGIES Coded Allergies: vancomycin (Severe, SWELLING 10/02/15) Home Medications Reported Medications Calcitriol 0.25 MCG PO BID #240 Levetiracetam (Avpak Levetiracetam) 1,000 MG PO BID #120 Prednisone (Prednisone 5MG) 10 MG PO BID #60 Gabapentin (Gabapentin 600MG) 600 MG PO Q8 #90 History Medical History General CAD? No Angina: No [place]: No Hypertension? No Hyperlipidemia? No CHF? No DVT? No PE? No COPD? No Asthma? No Anemia? Yes GERD? No Gastric ulcers? No GI Bleed? No Hernia? No Thyroid Problems? Yes Hypothyroidism? Yes CVA? Yes Seizures? Yes Diabetes? No Renal Insuffiency? Yes End Stage Renal Disease? No UTI? No Stones? No BPH? No GB Disease: Yes Nephritic Syndrome? No Asplenia? No Hepatitis? Yes Sickle Cell Disease? No Arthritis? No Migraines? Yes Cataracts? No Glaucoma? No MRSA? No HIV? No TB? No Anxiety? Yes Depression? Yes Cancer? No More? 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 Cardiovascular normal exam, regular rate/rhythm Neurologic muscle twitching and fasciculations seen Medical Decision Making LABS/Meds/Orders Pt receiving controlled substance in ED? No Results/Orders Laboratory Tests 03/28/17 1400: Sodium 140, Potassium 3.6, Chloride 101, Carbon Dioxide 34 H, BUN 6 L, Creatinine 0.8, Estimated Creat Clear 79, Estimated GFR (MDRD) 86, Glucose 79, Calcium 5.0 *L, Magnesium 1.2 L, Total Bilirubin 0.3, AST 40 H, ALT 29, Alkaline Phosphatase 95, Total Protein 7.1, Albumin 2.3 L, Globulin 4.8 H, Albumin/Globulin Ratio 0.5 L, WBC 14.2 H, RBC 4.61, Hgb 12.8, Hct 40.0, MCV 86.8, RDW 13.5, Plt Count 405, MPV 8.6, Gran % 61.7, Gran # 8.8 H, Total Counted 100, Lymphocytes % 26.8, Monocytes % 10.7 H, Eosinophils % 0.4, Basophils % 0.5, Neutrophils 68, Lymphocytes (Manual) 21, Lymphocytes # 3.8, Monocytes (Manual) 11 H, Monocytes # 1.5 H, Eosinophils # 0.1, Basophils # 0.1 , Platelet Estimate NORMAL, PUBS MCHC 32.0, MCH 27.8 Current Medication Orders Sig/Elijah Start time Last Medication Dose Route Stop Time Status Admin Calcium Gluconate 2 GM ONCE ONE 03/28 1630 DC Sodium Chloride 50 ML IV 03/28 1753 Calcium Gluconate 2 GM ONCE ONE 03/28 1630 AC 03/28 Sodium Chloride 100 ML IV 03/28 1853 1630 Hydrocortisone 100 MG ONCE ONE 03/28 1630 DC 03/28 Sodium Succinate IV 03/28 1631 1630 Hydrocortisone 0 .STK-MED ONE 03/28 1627 DC Sodium Succinate .ROUTE Calcium Gluconate 0 .STK-MED ONE 03/28 1625 DC .ROUTE Sodium Chloride 100 ML .STK-MED ONE 03/28 1625 DC IV Sodium Chloride 1,000 ML .STK-MED ONE 03/28 1432 DC IV Sodium Chloride 10 ML PRN PRN 03/28 1400 AC IV 03/29 1359 Sodium Chloride 1,000 ML .Q10H 03/28 1400 AC 03/28 IV 03/29 0200 1437 Sodium Chloride 10 ML PRN PRN 03/28 1400 AC IV 03/29 1400 Orders Procedure Date/time Status 12 LEAD EKG-BESSON (INITIAL) 03/28 1400 Active ELECTROCARDIOGRAM REQUEST 03/28 1400 Active IV SALINE LOCK 03/28 1400 Active MAGNESIUM 03/28 1400 Complete DIFFERENTIAL-WBC 03/28 1400 Complete CBC WITH AUTO DIFF 03/28 1400 Complete CALCIUM, IONIZED 03/28 1400 Active CHEM 12 PROFILE 03/28 1400 Complete CM/EKG CM/EKG EKG NSR, Prolonged QT Departure Departure Time of Disposition 1631 Disposition DC/XFER from ER to [facility] Clinical Impression Primary Impression: Addisons disease Secondary Impressions: Hypocalcemia Condition STABLE Additional Instructions I spoke with Dr. Osman at [facility] and he will accept the patient in transfer. Giving her 2 GMs Calcium gluconate IV in the ED now and also 100 mg Hydrocortisone IV ...Her PCP is in [place] and he has been writing her prescriptions. She has not seen an Order To Delivery Supervisor in 3 to 4 years and that was a Dr. Nasir Hutchins in [facility] Discharge Counseling Counseled pt/family regarding diagnosis, test results, follow up needs ED Critical Care Critical Care No If Critical Care minutes are documented, the time involved in the performance of seperately reportable procedures was not counted toward critical care time documented. I directly delivered medical care to this critically ill and/or injured patient. Timely evaluation and treatment was necessary to address the significant organ system(s) dysfunction present in this patient. at 1638
--- NOTE | 2017-03-28 14:01 | Emergency Room Report ---
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 N Clinical Suspician of Infection? N Mental Status: 1 - Regular (Normal Baseline) Sepsis Risk:Low Sepsis Risk Have you (or family members/close friends) recently traveled outside the [place]? N If Yes, where/when: Have you had exposure to infectious disease within the past month? N TB? Other? Specify: Source patient, RN notes reviewed Exam Limitations no limitations Comment Pt has a history of Mineral's Disease and was seen here last night with a ruptured ear drum and this morning is having a lot twitching and feels her Ca is low Cardiac Chest Pain Chest pain indicative of cardiac No ALLERGIES Coded Allergies: vancomycin (Severe, SWELLING 10/02/15) Home Medications Reported Medications Calcitriol 0.25 MCG PO BID #240 Levetiracetam (Avpak Levetiracetam) 1,000 MG PO BID #120 Prednisone (Prednisone 5MG) 10 MG PO BID #60 Gabapentin (Gabapentin 600MG) 600 MG PO Q8 #90 History Medical History General CAD? No Angina: No [place]: No Hypertension? No Hyperlipidemia? No CHF? No DVT? No PE? No COPD? No Asthma? No Anemia? Yes GERD? No Gastric ulcers? No GI Bleed? No Hernia? No Thyroid Problems? Yes Hypothyroidism? Yes CVA? Yes Seizures? Yes Diabetes? No Renal Insuffiency? Yes End Stage Renal Disease? No UTI? No Stones? No BPH? No GB Disease: Yes Nephritic Syndrome? No Asplenia? No Hepatitis? Yes Sickle Cell Disease? No Arthritis? No Migraines? Yes Cataracts? No Glaucoma? No MRSA? No HIV? No TB? No Anxiety? Yes Depression? Yes Cancer? No More? 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 Cardiovascular normal exam, regular rate/rhythm Neurologic muscle twitching and fasciculations seen Medical Decision Making LABS/Meds/Orders Pt receiving controlled substance in ED? No Results/Orders Laboratory Tests 03/28/17 1400: Sodium 140, Potassium 3.6, Chloride 101, Carbon Dioxide 34 H, BUN 6 L, Creatinine 0.8, Estimated Creat Clear 79, Estimated GFR (MDRD) 86, Glucose 79, Calcium 5.0 *L, Magnesium 1.2 L, Total Bilirubin 0.3, AST 40 H, ALT 29, Alkaline Phosphatase 95, Total Protein 7.1, Albumin 2.3 L, Globulin 4.8 H, Albumin/Globulin Ratio 0.5 L, WBC 14.2 H, RBC 4.61, Hgb 12.8, Hct 40.0, MCV 86.8, RDW 13.5, Plt Count 405, MPV 8.6, Gran % 61.7, Gran # 8.8 H, Total Counted 100, Lymphocytes % 26.8, Monocytes % 10.7 H, Eosinophils % 0.4, Basophils % 0.5, Neutrophils 68, Lymphocytes (Manual) 21, Lymphocytes # 3.8, Monocytes (Manual) 11 H, Monocytes # 1.5 H, Eosinophils # 0.1, Basophils # 0.1 , Platelet Estimate NORMAL, PUBS MCHC 32.0, MCH 27.8 Current Medication Orders Sig/Elijah Start time Last Medication Dose Route Stop Time Status Admin Calcium Gluconate 2 GM ONCE ONE 03/28 1630 DC Sodium Chloride 50 ML IV 03/28 1753 Calcium Gluconate 2 GM ONCE ONE 03/28 1630 AC 03/28 Sodium Chloride 100 ML IV 03/28 1853 1630 Hydrocortisone 100 MG ONCE ONE 03/28 1630 DC 03/28 Sodium Succinate IV 03/28 1631 1630 Hydrocortisone 0 .STK-MED ONE 03/28 1627 DC Sodium Succinate .ROUTE Calcium Gluconate 0 .STK-MED ONE 03/28 1625 DC .ROUTE Sodium Chloride 100 ML .STK-MED ONE 03/28 1625 DC IV Sodium Chloride 1,000 ML .STK-MED ONE 03/28 1432 DC IV Sodium Chloride 10 ML PRN PRN 03/28 1400 AC IV 03/29 1359 Sodium Chloride 1,000 ML .Q10H 03/28 1400 AC 03/28 IV 03/29 0200 1437 Sodium Chloride 10 ML PRN PRN 03/28 1400 AC IV 03/29 1400 Orders Procedure Date/time Status 12 LEAD EKG-BESSON (INITIAL) 03/28 1400 Active ELECTROCARDIOGRAM REQUEST 03/28 1400 Active IV SALINE LOCK 03/28 1400 Active MAGNESIUM 03/28 1400 Complete DIFFERENTIAL-WBC 03/28 1400 Complete CBC WITH AUTO DIFF 03/28 1400 Complete CALCIUM, IONIZED 03/28 1400 Active CHEM 12 PROFILE 03/28 1400 Complete CM/EKG CM/EKG EKG NSR, Prolonged QT Departure Departure Time of Disposition 1631 Disposition DC/XFER from ER to [facility] Clinical Impression Primary Impression: Addisons disease Secondary Impressions: Hypocalcemia Condition STABLE Additional Instructions I spoke with Dr. Osman at [facility] and he will accept the patient in transfer. Giving her 2 GMs Calcium gluconate IV in the ED now and also 100 mg Hydrocortisone IV ...Her PCP is in [place] and he has been writing her prescriptions. She has not seen an Director Internal Communications in 3 to 4 years and that was a Dr. Nasir Hutchins in [facility] Discharge Counseling Counseled pt/family regarding diagnosis, test results, follow up needs ED Critical Care Critical Care No If Critical Care minutes are documented, the time involved in the performance of seperately reportable procedures was not counted toward critical care time documented. I directly delivered medical care to this critically ill and/or injured patient. Timely evaluation and treatment was necessary to address the significant organ system(s) dysfunction present in this patient. at 1638
[2017-03-28 15:31] LABS: HEMOGLOBIN 12.8 g/dL (12.2-16.2)
[2017-03-28 15:33] LABS: LYMPH % 26.8 % (10-50.0)
[2017-03-28 15:35] LABS: LYMPH # 3.8 K/mm3 (0.7-4.5)
[2017-03-28 16:08] LABS: NEUTROPHILS 68 % (42-76)
[2017-03-28 17:40] VITALS: BP 135/87
--- OUTSIDE RECORDS SUMMARY | 2017-03-29 04:02 | External Medical Summary Rpt | CCD ---
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 BUCKNER [address] 70 10 10 S SA IS 2 #7 N ON 34 R E 6 0. # 1 73 MG 46 TA BL ET LE 68 10 11 0 60 30 WA 96 HO Ac VE 18 -2 -0 .0 LG 52 PK ti TI 00 9- 2- 00 RE 76 IN ve RA 11 20 20 EN S CE 41 10 10 S SA TA 6 #4 RA M 08 H 75 2 E 0 # MG 40 82 TA BL ET OK 00 10 10 0 10 3 WA [...] 0 14 7 WA 30 SH Ac OK 25 -1 -2 .0 LG 81 IE [...] EN 0 NE 00 10 10 S NM 5 #7 NA HC 34 C L 6 10 # 0 73 MG 46 TA BL ET 00 08 08 5 28 28 WA 30 KA Ac 43 -3 -3 .0 LG 58 LF ti 00 1- 1- 00 RE 97 ve 53 20 20 EN 1 01 10 10 S NM 4 #7 NA 34 C 6 # [...] 08 08 0 15 5 WA 30 NM Ac CL 74 -1 -1 .0 LG 51 LL ti OB 60 5- 5- 00 RE 80 ER ve EN 17 20 20 EN 1 ZA 71 10 10 S BR OK 0 #7 IA IN 34 N E [...] LG 45 ZI ti ON 25 1- 00 RE 15 GI ve AZ [...] LE 00 12 06 8 30 30 91 RO Ac VO [...] BUCKNER 61 06 06 0 15 15 92 KA Ac LF 31 -0 -0 .0 LG 38 LF ti AC 40 1- 1- 00 RE 56 ve ET 70 20 20 EN AM 10 10 10 S NM ID 1 #4 NA E 08 C [...] LE 68 10 05 7 60 30 91 AR Ac VE 18 -0 -2 [...] 82 00 08 05 2 60 30 91 [...] EN N OP 83 10 10 S NM HE 2 #4 CH N- 08 AE [...] LG 10 t ti IT 30 7 7 00 RE 26 Av ve RI 65 [...] LG 09 TH ti TI 00 1 RE 96 UR ve RA 11 20 20 EN 5 CE 41 09 10 # TO TA 6 DD M 07 75 34 0 6 MG TA BL ET FL 00 01 00 15 14 CV 51 KA Ac UC 17 -1 -2 .0 S 86 LF ti ON 25 4 8- PH 12 ve AZ 41 20 20 AR OL 14 10 10 MA NM E 6 CY NA 10 C 0 #5 MG 43 7 TA BL ET AM 00 06 15 00 28 14 CV 51 KA Ac OX 09 -1 -2 .0 S 86 LF ti IC 33 4- 8- 00 PH 13 ve IL 10 20 20 AR LI 90 10 10 MA NM N 5 CY NA 50 C 0 #5 MG 43 7 CA PS UL E HY 00 01 01 00 30 5 CV [address] 55 -0 -1 .0 S 78 LF ti OX 50 6- 4- 00 PH 61 ve YZ 30 20 20 AR IN 20 10 10 MA NM E 2 CY NA PA C M #5 50 43 7 MG CA P 00 12 01 00 84 84 WA 29 RO Ac 43 -2 -1 .0 LG 47 SE ti 00 9- 4- 00 RE 11 ve 53 20 20 EN 3 BUCKNER 01 09 10 # SA 4 N 07 R 34 6 OK 00 08 01 02 60 30 WA [...] 0 6 MC G TA BL ET FL 00 12 12 [...] LG 09 TH ti TI 00 1- 1- 00 RE 96 UR ve RA 11 [...] EN 7 1 50 09 09 # NM GM 4 NA 07 C CA 34 [...] 0 6 MC G TA BL ET PE 00 11 11 00 40 10 WA 29 No Ac NI 09 -1 -1 .0 LG 22 t ti CI 31 3 00 RE 82 Av ve LL 17 20 20 EN 8 ai IN 41 09 09 # la 0 bl VK 07 e 34 50 6 0 MG TA BL ET 00 11 11 00 20 3 WA 29 No Ac 59 -1 -1 .0 LG 22 t ti 10 3 00 RE 82 Av ve 34 20 [...] LG 17 CK ti RO 80 3 00 RE 63 SO ve TH 15 20 20 EN 6 N IA 00 09 09 # EL ZI 1 IZ DE 07 AB 34 ET 25 6 H 0 C MG TA BL ET RA 00 05 11 02 30 30 WA 28 YA Ac PA 00 -2 -1 .0 LG 38 ZI ti MU 81 00 RE 81 GI ve NE 04 20 20 EN 3 2 20 09 09 # NA 5 DA MG 07 A 34 TA 6 BL ET OK 00 08 11 01 60 30 WA 28 YA Ac ED 59 -1 -1 .0 LG 77 ZI ti NI 15 4- 9- 00 RE 12 GI ve SO 44 [...] 6 TA BL ET LE 00 05 11 [...] FL 00 09 10 00 14 13 WA 28 YA Ac UC 17 -2 -0 [...] la 4 bl 07 e 34 6 OK 00 08 08 00 60 30 WA [...] L 0 6 MG TA BL ET 00 [...] MG TA BL ET LE 00 05 08 01 30 30 WA 28 RO Ac VO 52 -1 -1 .0 LG 55 SE ti TH 71 3- 3- 00 RE 67 ve YR 34 20 20 EN 9 [place]CKNER OX 51 09 09 # SA IN 0 N E 07 R 10 34 0 6 MC G TA BL ET OK 00 10 07 01 60 30 WA 28 YA Ac ED 59 -0 -3 .0 LG 43 ZI ti NI 15 1- 0- 00 RE 36 GI ve SO 44 20 20 EN 9 NE 20 08 09 # NA 5 DA 10 07 A 34 MG 6 TA BL ET 00 02 07 02 [...] 07 A 34 TA 6 BL ET YA 50 07 07 00 [...] MG TA BL ET LE 00 05 07 [...] 0 CY DA A #5 43 7 OK 00 10 06 00 60 30 WA [...] 0 43 MG 7 TA BL ET OK 00 10 05 01 60 30 CV [...] 0 CY DA A #5 43 7 00 02 04 00 18 28 NU [...] MG 43 7 TA BL ET 00 02 04 04 18 28 NU 20 FI Ac 05 -0 -0 4. FA 86 LI ti 37 8- 9- 00 CT 1 PO ve 59 20 20 0 OR 62 08 09 CH 0 IN C AL EX AN DR A H 00 09 04 02 28 28 CV 48 No Ac 43 -0 -0 .0 S 24 t ti 00 9 9- 00 PH 67 Av ve 53 [...] 0 IN C AL EX AN DR Su H OK 00 10 02 00 60 30 CV 48 YA Ac ED 59 -0 -1 .0 S 24 ZI ti NI 15 1- 2- 00 PH 68 GI ve SO 44 20 20 AR NE 20 08 09 MA NA 1 CY DA 10 A #5 MG 43 7 TA BL ET 00 09 02 00 28 28 CV 48 No Ac 43 -0 -1 .0 S 24 t ti 00 9- 2- 00 PH 67 Av ve 53 20 20 AR ai 01 08 09 MA la 4 CY bl e #5 43 7 LE 00 02 02 00 90 30 CV 48 No Ac VE 37 -0 -1 .0 S 29 t ti TI 85 4- 2- 00 PH 87 Av ve RA 61 20 20 AR ai CE 57 09 09 MA la TA 8 CY bl M e 50 #5 0 43 MG 7 TA BL ET LE 00 03 01 01 30 30 [...] 20 AR OL 23 08 08 MA NM E 0 CY NA 10 C 0 #5 MG 43 7 TA BL ET Procedures Procedure DOS Code Location Performer Comment THERAPEUT 98230 [place] P[place] 1/> 7 [facility] AREAS TIC EACH 15 CENTER MIN EXERCISES DRUG TEST [address]16 ST [facility] PRSMV 7 [place] [facility] DIR OPTICAL PHYSICIAN OBS PER S DAY DRUG TEST [address]14[address] PRSMV 7 [place] [facility] INSTRMNT CHEMISTRY HEALTHCAR HEALTHCAR E EDGE E EDGE ANALYZERS APPL 53479 [place] [facility] MODALITY 7 [facility] 1/> AREAS TIC TRACTION CENTER MECHANICA L APPL 51978 [place] [facility] MODALITY 7 [facility]AC 1/> AREAS TIC ELEC CENTER STIMJ UNATTENDE D APPLICATI 79870 [facility] ON 7 [facility] MODALITY TIC TIC 1/> AREAS CENTER CENTER HOT/COLD PACKS [facility] 39391 [place] TIC 7 [facility] MANIPULAT TIC BEN TX CENTER SPINAL 3-4 REGIONS DRUG [address] G0480 [address] DEFINITV [address] ID METH P HEALTHCAR HEALTHCAR DAY 1- E EDGE E EDGE DRUG CL [facility] 60015 [place] TIC 7 [facility] MANIPLTV TIC TX CENTER EXTRASPIN AL 1/> REGION CH[facility]OP[facility]AC 64370 [place] TIC 7 CH[facility] MANIPLTV TIC TX CENTER EXTRASPIN AL 1/> REGION [facility]AC 48076 [place] TIC 7 [facility] MANIPULAT TIC BEN TX CENTER SPINAL 3-4 REGIONS THERAPEUT 66848 [facility] IC PX 1/> 7 [facility] AREAS TIC TIC EACH 15 CENTER CENTER MIN EXERCISES THERAPEUT 17892 [facility]/> 7 [facility] AREAS TIC EACH 15 CENTER MIN EXERCISES APPL 84020 [facility] 1/> AREAS TIC ELEC CENTER STIMJ UNATTENDE D APPL 47182 [facility] MODALITY 7 CHIROPRAC 1/> AREAS TIC TRACTION CENTER MECHANICA L CHIROPRAC 13027 [facility] CART[facility]IGHT TIC 7 [facility] MANIPULAT TIC BEN TX CENTER SPINAL 3-4 [facility]IONS APPLICATI 51389 [facility]ULL[facility] ON 7 [facility] MODALITY TIC TIC 1/> AREAS CENTER CENTER HOT/COLD PACKS [facility] 44961 [facility] TIC 7 [facility] MANIPLTV TIC TX CENTER EXTRASPIN AL 1/> REGION CHIROPRAC 26330 [place] TIC 7 CHIROPRAC MANIPLTV TIC TX CENTER EXTRASPIN AL 1/> REGION APPLICATI 66217 [facility] ON 7 [facility] CH[facility]AC MODALITY TIC TIC 1/> AREAS CENTER CENTER HOT/COLD PACKS MANUAL 60702 [place] [facility] THERAPY 7 [facility] TQS 1/> TIC REGIONS CENTER EACH 15 MINUTES [facility]OP[facility]AC 03783 [facility] FELICIANO TIC 7 [facility] MANIPULAT TIC BEN TX CENTER SPINAL 3-4 REGIONS APPL 39932 [place] MODALITY 7 CHIROPRAC 1/> AREAS TIC TRACTION CENTER MECHANICA L APPL 90462 [facility] CH[facility]OP[facility]AC CHIROPRAC 1/> AREAS TIC TIC TRACTION CENTER CENTER MECHANICA L MANUAL 65347 [place] THERAPY 7 CH[facility]OP[facility]AC TQS 1/> TIC REGIONS CENTER EACH 15 MINUTES APPLICATI 11469 [facility] F[facility] ON 7 [facility] MODALITY TIC 1/> AREAS CENTER HOT/COLD PACKS CHIROPRAC 45022 [facility] FELIC[facility] TIC 7 CHIR[facility] MANIPLTV TIC TX CENTER EXTRASPIN AL 1/> REGION CHIROPRAC 73278 [facility] PARKER TIC 7 CHIROPRAC MANIPULAT TIC BEN TX CENTER SPINAL 3-4 REGIONS CHIROPRAC 73287 [facility] JODIE TIC 7 [facility] MANIPULAT TIC BEN TX CENTER SPINAL 3-4 REGIONS CHIROPRAC 17910 [facility] PARKER TIC 7 CHIR[facility] MANIPLTV TIC TX CENTER EXTRASPIN AL 1/> REGION APPLICATI 69577 [facility] ON 7 [facility] CHIROPRAC MODALITY TIC TIC 1/> AREAS CENTER CENTER [place] [address] [facility] PARKER 1/> AREAS 7 [facility] EACH 15 TIC MINUTES CENTER MASSAGE MANUAL 77742 [place] THERAPY 7 [facility] TQS 1/> TIC REGIONS CENTER EACH 15 MINUTES APPL 76034 [place] [facility] MODALITY 7 CHIROPRAC 1/> AREAS TIC TRACTION CENTER MECHANICA L APPL 00469 [place] MODALITY 7 CHIROPRAC 1/> AREAS TIC ELEC CENTER STIMJ UNATTENDE D APPL 82905 [place] MODALITY 7 CHIROPRAC 1/> AREAS TIC TRACTION CENTER MECHANICA L APPL 41616 [place] MODALITY 7 CHIROPRAC 1/> AREAS TIC ELEC CENTER STIMJ UNATTENDE D CHIROPRAC 47481 [place] TIC 7 CHIROP[facility] MANIPULAT TIC BEN TX CENTER SPINAL 3-4 REGIONS APPLICATI 36963 [facility] ON 7 [facility] CHIROPRAC MODALITY TIC TIC 1/> AREAS CENTER CENTER HOT/COLD PACKS MANUAL 62307 [place] THERAPY 7 CHIROPRAC TQS 1/> TIC REGIONS CENTER EACH 15 MINUTES CHIROPRAC 97276 [place] TIC 7 CHIROPRAC MANIPLTV TIC TX CENTER EXTRASPIN AL 1/> REGION CHIROPRAC 45573 [place] TIC 7 CHIROPRAC MANIPLTV TIC TX CENTER EXTRASPIN AL 1/> [place] [address] [place] PARKER 1/> AREAS 7 [facility] EACH 15 TIC MINUTES CENTER MASSAGE APPLICATI 83894 [facility] ON 7 [facility] MODALITY TIC 1/> AREAS CENTER HOT/COLD PACKS CHIROPRAC 88573 [facility] FEL[facility] TIC 7 [facility] MANIPULAT TIC BEN TX CENTER SPINAL 3-4 REGIONS APPL 81415 [facility] P[facility] MODALITY 7 CHIROPRAC 1/> AREAS TIC ELEC CENTER STIMJ UNATTENDE D APPL 79417 [facility] 7 CHIROPRAC CHIROPRAC 1/> AREAS TIC TIC TRACTION CENTER CENTER MECHANICA L APPL 37131 [facility] P[facility] MODALITY 7 CHIROPRAC 1/> AREAS TIC ELEC CENTER STIMJ UNATTENDE D APPL 15105 [facility] P[facility] MODALITY 7 CHIROPRAC 1/> AREAS TIC TRACTION CENTER MECHANICA L CHIROPRAC 67949 [facility] FELICIAN[facility] TIC 7 [facility] MANIPULAT TIC BEN TX CENTER SPINAL 3-4 REGIONS APPLICATI 75495 [facility] SHETTY ON 7 [facility]OP[facility]AC MODALITY TIC 1/> AREAS CENTER [place] [address] [facility] P[facility] 1/> AREAS 7 [place] EACH 15 TIC MINUTES CENTER MASSAGE CHIROPRAC 19720 [facility] FELICIAN[facility] TIC 7 CHIROPRAC MANIPLTV TIC TX CENTER EXTRASPIN AL 1/> REGION CHIROPRAC 51655 [facility] P[facility] TIC 7 CHIROPRAC MANIPLTV TIC TX CENTER EXTRASPIN AL 1/> [place] [address] [facility] P[facility] 1/> AREAS 7 [facility] EACH 15 TIC MINUTES CENTER MASSAGE APPLICATI 38943 [facility] ON 7 [facility] MODALITY TIC 1/> AREAS CENTER HOT/COLD PACKS CHIROPRAC 48001 [facility] F[facility] TIC 7 [facility] MANIPULAT TIC BEN TX CENTER SPINAL 3-4 REGIONS APPL 71819 [facility] MODALITY 7 CHIROPRAC 1/> AREAS TIC TRACTION CENTER MECHANICA L APPL 07341 [facility] MODALITY 7 CHIROPRAC 1/> AREAS TIC ELEC CENTER STIMJ UNATTENDE D THERAPEUT 79623 [place]EL[place] IC PX 1/> 7 [place] AREAS TIC EACH 15 CENTER MIN EXERCISES APPL 29054 [facility] [place] MODALITY 7 CHIROPRAC 1/> AREAS TIC ELEC CENTER STIMJ UNATTENDE D APPL 72281 [facility] MODALITY 7 CHIROPRAC 1/> AREAS TIC TRACTION CENTER MECHANICA L CHIROPRAC 28152 [facility] [place] TIC 7 [facility] MANIPULAT TIC BEN TX CENTER SPINAL 3-4 REGIONS APPLICATI 32066 [facility] [place] ON 7 [facility]AC MODALITY TIC 1/> AREAS CENTER [place] [address] [place] 1/> AREAS 7 [facility] EACH 15 TIC MINUTES CENTER MASSAGE SELF-CARE 95602 [facility] /HOME 7 [facility] MGMT TIC TRAINING CENTER EACH 15 MINUTES CHIROPRAC 55000 [facility] PHILLIPS TIC 7 [facility] MANIPLTV TIC TX CENTER EXTRASPIN AL 1/> REGION CHIROPRAC 69412 [place] [facility] TIC 7 [facility] MANIPLTV TIC TX CENTER EXTRASPIN AL 1/> REGION SELF-CARE 64193 [facility] J[facility] /HOME 7 [facility] MGMT TIC TRAINING CENTER EACH 15 MINUTES APPLICATI 14581 [facility] PARKER ON 7 [facility] MODALITY TIC 1/> AREAS CENTER [place] [address] [facility] JODIE 1/> AREAS 7 [facility] EACH 15 TIC MINUTES CENTER MASSAGE CHIROPRAC 60535 [facility] TIC 7 [facility] MANIPULAT TIC BEN TX CENTER SPINAL 3-4 REGIONS APPL 51216 [facility] MODALITY 7 CHIROPRAC 1/> AREAS TIC ELEC CENTER STIMJ UNATTENDE D NONEMERGE A0100 LKLP CAC BENNETTS NCY 6 INC TRANSPORT TRANSPORT REGION 9 ATION CO ATION; L TAXI CHIROPRAC 62953 [facility] LARSEN TIC 6 CHIR[facility] MANIPLTV TIC TX CENTER EXTRASPIN AL 1/> REGION THERAPEUT 57847 [facility] BAÑUELOS IC PX 1/> 6 [facility] AREAS TIC EACH 15 CENTER MIN EXERCISES CHIROPRAC 88226 [facility] BA[facility]UELOS TIC 6 [facility] MANIPULAT TIC BEN TX CENTER SPINAL 3-4 REGIONS APPL 53808 [facility] MODALITY 6 CHIROPRAC CHIROPRAC 1/> AREAS TIC TIC ELEC CENTER CENTER STIMJ UNATTENDE D THERAPEUT 39992 [place] IC PX 1/> 6 [place] AREAS TIC EACH 15 CENTER MIN EXERCISES CHIROPRAC 69180 [place] EDDA TIC 6 CHIROPRAC MANIPLTV TIC TX CENTER EXTRASPIN AL 1/> REGION CHIROPRAC 25791 [place] EDDA TIC 6 CHIROPR[facility] MANIPULAT TIC BEN TX CENTER SPINAL 3-4 REGIONS CALCIUM 35479 THE THE IONIZED [address] [place] [address] [place] [address] THE THE LIPASE [address] [place] [address] [place] [address] THE THE PARATHORM [address] [place] [address] BLOOD 92390 THE THE COUNT [address] [place] [address] AUTOMATED COLLECTIO 40586 THE THE N VENOUS [address] [place] [address] [place] [address] THE THE AMYLASE [address] [place] [address] HEMOGLOBI 18975 THE THE N [address] [place] [address] YVETTE A1C COMPREHEN 69326 THE THE SIVE [address] [place] [address] METABOLIC [facility] [place] [address] THE THE FREE [address] [place] [address] THYROX[place] [address] THE THE THYROID [address] [place] [address] NG HORMONE TSH APPL 37656 [facility] MODALITY 6 CHIROPRAC CHIROPRAC 1/> AREAS TIC TIC TRACTION CENTER CENTER MECHANICA L THERAPEUT 66440 [place] 1/> 6 CHIROPRAC AREAS TIC EACH 15 CENTER MIN EXERCISES CHIROPRAC 88453 [facility]UELOS TIC 6 CHIROPRAC MANIPLTV TIC TX CENTER EXTRASPIN AL 1/> REGION CHIROPRAC 87004 [facility] BAÑUELOS TIC 6 CHIROPRAC MANIPULAT TIC BEN TX CENTER SPINAL 3-4 REGIONS CHIROPRAC 47696 [facility] BAÑUELOS TIC 6 CHIROPRAC MANIPLTV TIC TX CENTER EXTRASPIN AL 1/> REGION THERAPEUT 02931 [facility] IC PX 1/> 6 [facility] AREAS TIC EACH 15 CENTER MIN EXERCISES APPL 70044 [facility] 6 CHIROPRAC CHIROPRAC 1/> AREAS TIC TIC TRACTION CENTER CENTER MECHANICA L CHIROPRAC 18463 [facility]OS TIC 6 CHIROPRAC MANIPULAT TIC BEN TX CENTER SPINAL 3-4 REGIONS CHIROPRAC 94664 [facility] TIC 6 [facility] MANIPULAT TIC BEN TX CENTER SPINAL 3-4 REGIONS APPL 09905 [facility] MODALITY 6 CHIROPRAC 1/> AREAS TIC ELEC CENTER STIMJ UNATTENDE D APPL 74723 [facility]AL[facility] 6 CHIROPRAC CHIROPRAC 1/> AREAS TIC TIC TRACTION CENTER CENTER MECHANICA L THERAPEUT 54052 [facility] BA[facility]EL[facility] IC PX 1/> 6 [place] AREAS TIC EACH 15 CENTER MIN EXERCISES CHIROPRAC 47457 [facility] TIC 6 [facility] MANIPLTV TIC TX CENTER EXTRASPIN AL 1/> REGION CHIROPRAC 10599 [facility] TIC 6 CHIROPRAC MANIPLTV TIC TX CENTER EXTRASPIN AL 1/> REGION THERAPEUT 83579 [facility]/> 6 [facility]IROPRAC CHIROPRAC AREAS TIC TIC EACH 15 CENTER CENTER MIN EXERCISES SELF-CARE 47373 [facility] ED[facility] /HOME 6 [facility] MGMT TIC TRAINING CENTER EACH 15 MINUTES [facility]IROPRAC 16163 [facility] EDDA TIC 6 [place] MANIPULAT TIC BEN TX CENTER SPINAL 3-4 REGIONS SURGICAL L3260 ADVANCED ADVANCED BOOT/SHOE 6 TECHNOLOG TECHNOLOG EACH IES INC IES INC RADIOLOGI 86062 [place] [facility] C 6 MEDICAL EXAMINATI IMAGING ON FOOT 2 ASS VIEWS CHIROPRAC 92823 [facility] BA[facility]UELOS TIC 6 CH[facility] MANIPLTV TIC TX CENTER EXTRASPIN AL 1/> REGION CHIROPRAC 18689 [facility] TIC 6 [place] MANIPULAT TIC BEN TX CENTER SPINAL 3-4 REGIONS THERAPEUT 01994 [place] 1/> 6 [place] AREAS TIC EACH 15 CENTER MIN EXERCISES APPL 70228 [facility] A[facility] MOD[facility]ITY 6 CHIROPRAC CHIROPRAC 1/> AREAS TIC TIC ELEC CENTER CENTER STIMJ UNATTENDE D THERAPEUT 53084 [facility]/> 6 [facility]IROPRAC [facility]OP[facility] AREAS TIC TIC EACH 15 CENTER CENTER MIN EXERCISES CHIROPRAC 96770 [facility] TIC 6 [place] GAR MANIPULAT TIC BEN TX CENTER SPINAL 3-4 REGIONS CHIROPRAC 07058 [facility] TIC 6 CHIROPRAC GAR MANIPLTV TIC TX CENTER EXTRASPIN AL 1/> REGION CHIROPRAC 36065 [place] TIC 6 CHIROPRAC MANIPLTV TIC TX CENTER EXTRASPIN AL 1/> REGION CHIROPRAC 01361 [facility] TIC 6 [place] MANIPULAT TIC BEN TX CENTER SPINAL 3-4 REGIONS THERAPEUT 26191 [place] 1/> 6 [place] AREAS TIC EACH 15 CENTER MIN EXERCISES THERAPEUT 21689 [place] 1/> 6 [place] AREAS TIC EACH 15 CENTER MIN EXERCISES APPL 25074 [place] EDDA MODALITY 6 CHIROPRAC 1/> AREAS TIC TRACTION CENTER MECHANICA L CHIROPRAC 03305 [place] ED[place] TIC 6 [facility] MANIPULAT TIC B[facility] C[facility] SPINAL 3-4 REGIONS [facility] 00937 [facility] MANIPLTV TIC TIC TX CENTER CENTER EXTRASPIN AL 1/> REGION [facility] 50862 [facility]DA TIC 6 [facility] MANIPLTV TIC TX CENTER EXTRASPIN AL 1/> REGION [facility] 39256 [facility] MANIPULAT TIC [facility] SPINAL 3-4 REGIONS THERAPEUT 84156 [facility] IC PX 1/> 6 [facility] AREAS TIC TIC EACH 15 CENTER CENTER MIN EXERCISES BASIC 70780 [facility] METABOLIC 6 Y Y [facility]EL [facility] CALCIUM TOTAL BLOOD 07464 [facility] COUNT 6 Y Y COMPLETE [facility] AUTOMATED COLLECTIO 37042 [facility] N VENOUS 6 Y Y BLOOD [facility] VENIPUNCT URE PROTHROMB 57965 [facility] IN TIME 6 Y Y [facility] THROMBOPL 38194 [facility] ASTIN 6 Y Y TIME [facility] PARTIAL PLASMA/WH OLE BLOOD [facility] 37622 [facility] TIC 6 [facility] GAR MANIPULAT TIC [facility] SPINAL 3-4 REGIONS [facility] 86070 [facility] T[facility] 6 [facility] GAR MANIPLTV TIC TX CENTER EXTRASPIN AL 1/> REGION MANUAL 17500 [place] [facility] THERAPY 6 [facility] TQS 1/> TIC TIC REGIONS CENTER CENTER EACH 15 MINUTES MANUAL 40927 [place] [facility] THERAPY 6 [facility] TQS 1/> TIC REGIONS CENTER EACH 15 MINUTES [facility] 83786 [facility] 6 [facility] MANIPLTV TIC TX CENTER EXTRASPIN AL 1/> REGION [facility] 87132 [facility] T[facility] 6 [facility] MANIPULAT TIC [facility] SPINAL 1-2 REGIONS THERAPEUT 03123 [facility] IC PX 1/> 6 [facility]OP[facility] AREAS TIC TIC EACH 15 CENTER CENTER MIN EXERCISES THERAPEUT 60940 [facility] IC PX 1/> 6 [facility] AREAS TIC TIC EACH 15 CENTER CENTER MIN EXERCISES CHIROPRAC 01941 [facility] BAÑUELOS TIC 6 [facility] GAR MANIPLTV TIC TX CENTER EXTRASPIN AL 1/> REGION [facility]OP[facility]AC 22614 [facility] BAÑUELOS TIC 6 [facility] GAR MANIPULAT TIC BNE TX CENTER SPINAL 3-4 REGIONS [facility]OP[facility]AC 46108 [facility] BAÑUELOS TIC 6 [facility] MANIPULAT TIC [facility] SPINAL 3-4 REGIONS THERAPEUT 34938 [facility] 1/> 6 [place] AREAS TIC EACH 15 CENTER MIN EXERCISES APPL 94629 [facility]IROPRAC 1/> AREAS TIC TIC TRACTION CENTER CENTER MECHANICA L [facility]OP[facility]AC 01768 [facility] BA[facility]EL[facility] TIC 6 [facility] MANIPLTV TIC TX CENTER EXTRASPIN AL 1/> REGION APPL 51617 [facility] MODALITY 6 [facility] CHIROPRAC 1/> AREAS TIC TIC TRACTION CENTER CENTER MECHANICA L THERAPEUT 13876 [facility] 1/> 6 [place] GAR AREAS TIC EACH 15 CENTER MIN EXERCISES [facility] 58392 [facility] T[facility] 6 [place] GAR MANIPULAT TIC [facility] SPINAL 3-4 REGIONS CHIROP[facility]AC 05865 [facility] BAÑUELOS TIC 6 [facility] GAR MANIPLTV TIC TX CENTER EXTRASPIN AL 1/> REGION [facility]OP[facility] 90736 [facility] T[facility] 6 [facility] GAR MANIPLTV TIC TX CENTER EXTRASPIN AL 1/> REGION [facility]OP[facility]AC 24143 [facility] TIC 6 [place] GAR MANIPULAT TIC [facility] SPINAL 3-4 REGIONS THERAPEUT 46759 [place] P[place] 1/> 6 [place] GAR AREAS TIC EACH 15 CENTER MIN EXERCISES APPL 04082 [facility] MODALITY 6 [facility] CHIROPRAC 1/> AREAS TIC TIC TRACTION CENTER CENTER MECHANICA L THERAPEUT 57758 [facility]/> 6 [facility]OP[facility] AREAS TIC TIC EACH 15 CENTER CENTER MIN EXERCISES MANUAL 96494 [facility] TH[facility]AP[facility] 6 [facility] TQS 1/> TIC REGIONS CENTER EACH 15 MINUTES [facility]IROP[facility]AC 03264 [facility] BAÑUELOS TIC 6 [facility] MANIPLTV TIC TX CENTER EXTRASPIN AL 1/> REGION [facility]OP[facility]AC 05800 [facility] TIC 6 [facility] MANIPULAT TIC [facility] SPINAL 3-4 REGIONS CHIROPRAC 58095 [facility] BAÑUELOS TIC 6 [facility] MANIPULAT TIC [facility] SPINAL 3-4 REGIONS CHIROPRAC 31435 [facility] BA[facility]EL[facility] TIC 6 [facility] MANIPLTV TIC TX CENTER EXTRASPIN AL 1/> REGION MANUAL [address]77 [place] [facility] THERAP[facility] 6 CHIROPRAC TQS 1/> TIC REGIONS CENTER EACH 15 MINUTES THERAPEUT 46376 [facility]/> 6 CHIROPRAC CHIROPRAC AREAS TIC TIC EACH 15 CENTER CENTER MIN EXERCISES THERAPEUT 90573 [facility]/> 6 CHIROPRAC CHIROPRAC AREAS TIC TIC EACH 15 CENTER CENTER MIN EXERCISES MANUAL 31727 [facility] THERAPY 6 CHIROPRAC TQS 1/> TIC REGIONS CENTER EACH 15 MINUTES CHIROPRAC 16914 [facility] TIC 6 CHIROPRAC MANIPULAT TIC BEN TX CENTER SPINAL 3-4 REGIONS CHIROPRAC 29802 [facility] TIC 6 CHIROPRAC MANIPLTV TIC TX CENTER EXTRASPIN AL 1/> REGION CHIROPRAC 38219 [facility] BA[facility]UELOS TIC 6 CHIROPRAC MANIPLTV TIC TX CENTER EXTRASPIN AL 1/> REGION CHIROPRAC 67514 [facility] BA[facility] TIC 6 CHIROPRAC MANIPULAT TIC BEN TX CENTER SPINAL 3-4 REGIONS MANUAL 60583 [place] ED[facility] THERAPY 6 CHIROPRAC TQS 1/> TIC REGIONS CENTER EACH 15 MINUTES THERAPEUT 45425 [facility] IC PX 1/> 6 CHIROPRAC CHIROPRAC AREAS TIC TIC EACH 15 CENTER CENTER MIN EXERCISES THERAPEUT 12451 [facility] IC PX 1/> 6 CHIROPRAC CHIROPRAC AREAS TIC TIC EACH 15 CENTER CENTER MIN EXERCISES MANUAL 15020 [facility]EL[facility] THERAPY 6 CHIROPRAC GAR TQS 1/> TIC REGIONS CENTER EACH 15 MINUTES CHIROPRAC 69484 [facility] TIC 6 CHIROPRAC GAR MANIPULAT TIC BEN TX CENTER SPINAL 3-4 REGIONS CHIROPRAC 66441 [facility] TIC 6 CHIROPRAC GAR MANIPLTV TIC TX CENTER EXTRASPIN AL 1/> REGION CHIROPRAC 25849 [facility] TIC 6 CHIROPRAC MANIPLTV TIC TX CENTER EXTRASPIN AL 1/> REGION MANUAL 61928 [facility] THERAPY 6 CHIROPRAC TQS 1/> TIC REGIONS CENTER EACH 15 MINUTES CHIROPRAC 76038 [facility] TIC 6 CHIROPRAC MANIPULAT TIC BEN TX CENTER SPINAL 1-2 REGIONS THERAPEUT 65561 [facility]/> 6 CHIROPRAC CHIROPRAC AREAS TIC TIC EACH 15 CENTER CENTER MIN EXERCISES CHIROPRAC 92062 [facility] TIC 6 CHIROPRAC GAR MANIPULAT TIC BEN TX CENTER SPINAL 3-4 REGIONS CHIROPRAC 87048 [facility] TIC 6 CHIROPRAC GAR MANIPLTV TIC TX CENTER EXTRASPIN AL 1/> REGION CHIROPRAC 33038 [facility] TIC 6 CHIROPRAC GAR MANIPLTV TIC TX CENTER EXTRASPIN AL 1/> REGION CHIROPRAC 83651 [facility] ASHLYRAY TIC 6 CHIROPRAC CHIROPRAC MANIPULAT TIC TIC BEN TX CENTER CENTER SPINAL 3-4 REGIONS CHIROPRAC 14483 [facility] TIC 5 CHIROPRAC GAR MANIPULAT TIC BEN TX CENTER SPINAL 1-2 REGIONS CHIROPRAC 17944 [facility] TIC 5 CHIROPRAC GAR MANIPULAT TIC BEN TX CENTER SPINAL 1-2 REGIONS THERAPEUT 31460 [facility] IC PX 1/> 5 CHIROPRAC GAR AREAS TIC EACH 15 CENTER MIN EXERCISES CHIROPRAC 42136 [facility] TIC 5 CHIROPRAC GAR MANIPLTV TIC TX CENTER EXTRASPIN AL 1/> REGION CHIROPRAC 72249 [facility] CA TIC 5 CHIROPRAC CHIROPRAC MANIPLTV TIC TIC TX CENTER CENTER EXTRASPIN AL 1/> REGION THERAPEUT 63814 [facility] IC PX 1/> 5 CHIROPRAC GAR AREAS TIC EACH 15 CENTER MIN EXERCISES CHIROPRAC 83570 [facility] HULLWARAY TIC 5 CHIROPRAC CHIROPRAC MANIPULAT TIC TIC BEN TX CENTER CENTER SPINAL 1-2 REGIONS CHIROPRAC 12816 [facility] TIC 5 CHIROPRAC GAR MANIPULAT TIC BEN TX CENTER SPINAL 3-4 REGIONS CHIROPRAC 76373 [facility] TIC 5 CHIROPRAC GAR MANIPLTV TIC TX CENTER EXTRASPIN AL 1/> REGION RADEX 86938 RADIOLOGY BRANDSER FOOT 5 SHEA COMPLETE ASSOCIATE MINIMUM 3 S OF NOTH VIEWS CHIROPRAC 22918 [facility] TIC 5 CHIROPRAC GAR MANIPLTV TIC TX CENTER EXTRASPIN AL 1/> REGION CHIROPRAC 54820 [place] KURTISW[place] TIC 5 CHIROPRAC CHIROPRAC MANIPULAT TIC TIC BEN TX CENTER CENTER SPINAL 1-2 REGIONS THERAPEUT 92477 [facility] EDDA IC PX 1/> 5 CHIROPRAC GAR AREAS TIC EACH 15 CENTER MIN EXERCISES THERAPEUT 20710 [facility] IC PX 1/> 5 CHIROPRAC GAR AREAS TIC EACH 15 CENTER MIN EXERCISES CHIROPRAC 57069 [facility] TIC 5 CHIROPRAC GAR MANIPULAT TIC BEN TX CENTER SPINAL 1-2 REGIONS CHIROPRAC 76054 [facility] TIC 5 CHIROPRAC GAR MANIPLTV TIC TX CENTER EXTRASPIN AL 1/> REGION CHIROPRAC 50729 [facility] TIC 5 CHIROPRAC GAR MANIPLTV TIC TX CENTER EXTRASPIN AL 1/> REGION CHIROPRAC 16062 [facility] CA TIC 5 CHIROPRAC CHIROPRAC MANIPULAT TIC TIC BEN TX CENTER CENTER SPINAL 1-2 REGIONS THERAPEUT 82566 LANNY BAÑUELOS IC PX 1/> 5 CHIROPRAC GAR AREAS TIC EACH 15 CENTER MIN EXERCISES THERAPEUT 52716 LANNY BAÑUELOS IC PX 1/> 5 CHIROPRAC GAR AREAS TIC EACH 15 CENTER MIN EXERCISES CHIROPRAC 95606 [facility] TIC 5 CHIROPRAC CHIROPRAC MANIPULAT TIC TIC BEN TX CENTER CENTER SPINAL 1-2 REGIONS CHIROPRAC 74905 [facility] HULLWARAY TIC 5 CHIROPRAC CHIROPRAC MANIPLTV TIC TIC TX CENTER CENTER EXTRASPIN AL 1/> REGION CHIROPRAC 79179 [facility] TIC 5 CHIROPRAC CHIROPRAC MANIPLTV TIC TIC TX CENTER CENTER EXTRASPIN AL 1/> REGION CHIROPRAC 43849 [facility] TIC 5 CHIROPRAC CHIROPRAC MANIPULAT TIC TIC BEN TX CENTER CENTER SPINAL 1-2 REGIONS CHIROPRAC 53793 [facility] TIC 5 CHIROPRAC GAR MANIPULAT TIC BEN TX CENTER SPINAL 1-2 REGIONS CHIROPRAC 00284 [facility] TIC 5 CHIROPRAC GAR MANIPLTV TIC TX CENTER EXTRASPIN AL 1/> REGION CHIROPRAC 52179 [facility] TIC 5 CHIROPRAC GAR MANIPLTV TIC TX CENTER EXTRASPIN AL 1/> REGION CHIROPRAC 40252 [facility] TIC 5 CHIROPRAC GAR MANIPULAT TIC BEN TX CENTER SPINAL 1-2 REGIONS CHIROPRAC 90670 [facility] TIC 5 CHIROPRAC GAR MANIPULAT TIC BEN TX CENTER SPINAL 1-2 REGIONS CHIROPRAC 12995 LANNY BAÑUELOS TIC 5 CHIROPRAC GAR MANIPLTV TIC TX CENTER EXTRASPIN AL 1/> REGION CHIROPRAC 13902 [facility] BAÑUELOS TIC 5 CHIROPRAC GAR MANIPULAT TIC BEN TX CENTER SPINAL 1-2 REGIONS THERAPEUT 32341 LANNY BAÑUELOS IC PX 1/> 5 CHIROPRAC GAR AREAS TIC EACH 15 CENTER MIN EXERCISES CHIROPRAC 75862 LANNY BAÑUELOS TIC 5 CHIROPRAC GAR MANIPLTV TIC TX CENTER EXTRASPIN AL 1/> REGION CHIROPRAC 28158 LANNY BAÑUELOS TIC 5 CHIROPRAC GAR MANIPLTV TIC TX CENTER EXTRASPIN AL 1/> REGION THERAPEUT 21536 LANNY BAÑUELOS IC PX 1/> 5 CHIROPRAC GAR AREAS TIC EACH 15 CENTER MIN EXERCISES CHIROPRAC 81044 LANNY BAÑUELOS TIC 5 CHIROPRAC GAR MANIPULAT TIC BEN TX CENTER SPINAL 1-2 REGIONS CHIROPRAC 18270 LANNY BAÑUELOS TIC 5 CHIROPRAC GAR MANIPULAT TIC BEN TX CENTER SPINAL 1-2 REGIONS CHIROPRAC 94474 LANNY BAÑUELOS TIC 5 CHIROPRAC GAR MANIPLTV TIC TX CENTER EXTRASPIN AL 1/> REGION THERAPEUT 56183 LANNY BAÑUELOS IC PX 1/> 5 CHIROPRAC GAR AREAS TIC EACH 15 CENTER MIN EXERCISES THERAPEUT 09134 LANNY BAÑUELOS IC PX 1/> 5 CHIROPRAC GAR AREAS TIC EACH 15 CENTER MIN EXERCISES CHIROPRAC 45319 LANNY BAÑUELOS TIC 5 CHIROPRAC GAR MANIPLTV TIC TX CENTER EXTRASPIN AL 1/> REGION CHIROPRAC 91667 LANNY BAÑUELOS TIC 5 CHIROPRAC GAR MANIPULAT TIC BEN TX CENTER SPINAL 1-2 REGIONS CHIROPRAC 65774 LANNY BAÑUELOS TIC 5 CHIROPRAC GAR MANIPULAT TIC BEN TX CENTER SPINAL 1-2 REGIONS CHIROPRAC 56965 [facility] EDDA TIC 5 CHIROPRAC GAR MANIPLTV TIC TX CENTER EXTRASPIN AL 1/> REGION CHIROPRAC 76086 LANNY BAÑUELOS TIC 5 CHIROPRAC GAR MANIPLTV TIC TX CENTER EXTRASPIN AL 1/> REGION CHIROPRAC 39029 LANNY CA TIC 5 CHIROPRAC CHIROPRAC MANIPULAT TIC TIC BEN TX CENTER CENTER SPINAL 1-2 REGIONS CHIROPRAC 59661 LANNY BAÑUELOS TIC 5 CHIROPRAC GAR MANIPULAT TIC BEN TX CENTER SPINAL 3-4 REGIONS CHIROPRAC 10567 LANNY BAÑUELOS TIC 5 CHIROPRAC GAR MANIPULAT TIC BEN TX CENTER SPINAL 1-2 REGIONS CHIROPRAC 31938 LANNY BAÑUELOS TIC 5 CHIROPRAC GAR MANIPULAT TIC BEN TX CENTER SPINAL 1-2 REGIONS CRTCHS E0114 ADVANCED ADVANCED UNDARM 5 TECHNOLOG TECHNOLOG OTH THAN IES INC IES INC WOOD PAIR PAD TIP&HNDGR IP RADEX 58470 [place] [facility] K[place] FOOT 5 MEDICAL COMPLETE IMAGING MINIMUM 3 ASS VIEWS CHIROPRA 64191 LANNY BAÑUELOS TIC 5 CHIROPRAC GAR MANIPULAT TIC [facility] [place] SPINAL 1-[address] [place] [address] LUI CARTERO HEAD/BRAI 5 NAL N W/O RADIOLOGY CONTRAST INC. MATERIAL RADIOLOGI 59021 LUI JOSEPH C 5 NAL ADA EXAMINATI RADIOLOGY ON CHEST INC. SINGLE VIEW FRONTAL UNLISTED 90788 [place] PROCEDURE 5 MEDICAL JUS NERVOUS SERV SYSTEM FOUNDATIO N INITIAL 52607 [place] MANCIA INPATIENT 5 MEDICAL L CONSULT SERV NEW/ESTAB FOUNDATIO PT 80 N MIN MICROSURG 00668 [place] TQS REQ 5 MEDICAL JUS USE SERV OPERATING FOUNDATIO N MICROSCOP E ARTL 52567 [place] CATHJ/CAN 5 MEDICAL ZOH NULJ SERVICES MNTR/GERMAN SFUSION SPX PRQ ANESTHESI 40658 [place] A 5 MEDICAL ZOH INTRACRAN SERVICES IAL VASCULAR PROCEDURE APPL 03512 COLE GALVAN MODALITY 5 COL COL 1/> AREAS TRACTION MECHANICA L APPL 28151 [facility] MODALITY 5 COL COL 1/> AREAS ELEC STIMJ UNATTENDE D CHIROPRAC 44783 CO[facility] GALVAN TIC 5 COL COL MANIPULAT BEN TX SPINAL 1-2 REGIONS ANKLE L1930 PATIENT PATIENT FOOT 5 AIDS INC AIDS INC ORTHOTIC PLASTIC/O [facility] MEDICAL SHEA DAY SERV MANAGEMEN FOUNDATIO T 30 N MIN/< ECG 06553 [place] [facility] CHI ROUTINE 5 MEDICAL ECG SERV W/LEAST FOUNDATIO 12 LDS N I&R ONLY CANE E0105 PATIENT PATIENT QUAD/3-OK 5 AIDS INC AIDS INC JACIEL ALL MATL ADJUSTBL/ FIX W/TIPS SBSQ 66941 [place] [address] MEDICAL NAN CARE/DAY SERV 25 FOUNDATIO MINUTES N SBSQ 15901 [place] [address] MEDICAL SHEA CARE/DAY SERV 35 FOUNDATIO MINUTES N SBSQ 86291 [place] [address] MEDICAL SARAH CARE/DAY SERV 25 FOUNDATIO MINUTES N SBSQ 19168 [place] [address] MEDICAL SARAH CARE/DAY SERV 25 FOUNDATIO MINUTES N SBSQ 41817 [place] [address] MEDICAL SARAH CARE/DAY SERV 25 FOUNDATIO MINUTES N SBSQ 68760 [place] [address] MEDICAL SHEA CARE/DAY SERV 25 FOUNDATIO MINUTES N SBSQ 98045 [place] [address] MEDICAL SHEA CARE/DAY SERV 25 FOUNDATIO MINUTES N RADIOLOGI 95171 [facility] [place] [address] RADIOLOGY III ROMARIO EXAMINATI ON CHEST SINGLE [facility] 13746 [facility] DISCHARGE 5 MEDICAL JOHN DAY SERV MANAGEMEN FOUNDATIO T 30 N MIN/< INITIAL 90837 [facility] 5 MEDICAL SHEA CARE/DAY SERV 70 FOUNDATIO MINUTES N SBSQ 71339 [place] [address] MEDICAL JOHN CARE/DAY SERV 25 FOUNDATIO MINUTES N SBSQ [address] [facility] 5 MEDICAL CARE/DAY SERV 35 FOUNDATIO MINUTES N SLCTV 60451 [facility] 5 MEDICAL ABD INTRNL SERV CAROTID FOUNDATIO ART ANGIO N INTRCRNL ART SLCTV 31279 [facility] 5 MEDICAL ABD VERTEBRAL SERV ART FOUNDATIO ANGIO N VERTEBRAL ARTERY SLCTV 25755 [place] ALHAJER[place] CATH 5 MEDICAL ABD CAROTID/I SERV NNOM ART FOUNDATIO ANGIO N INTRCRANL ART SLCTV 49800 [place] CATH 5 MEDICAL ABD XTRNL SERV CAROTID FOUNDATIO [place] [address] [place] SETH KWA ANGIOGRAP 5 MEDICAL HY HEAD SERV W/CONTRAS FOUNDATIO T/NONCONT N RAST GROUND A0425 [facility] MILEAGE 5 MYRANDA WHITMORE PER CO EMS CO EMS STATUTE MILE HEMOGLOBI 80235 UNIVERSIT ERICKA N 5 Y OF EDER FRACTJ/[place] [address] [facility] [place] SCALF JOHN HEAD/BRAI 5 RADIOLOGY N W/O CONTRAST MATERIAL MRI BRAIN 01349 [place] ESCOTT BRAIN 5 MEDICAL EDW STEM W/O SERV W/CONTRAS FOUNDATIO T N MATERIAL RADIOLOGI 70338 [place] C 5 MEDICAL EITAN EXAMINATI SERV ON CHEST FOUNDATIO SINGLE N VIEW FRONTAL AMB A0427 [facility] SERVICE 5 MYRANDA WHITMORE ALS CO EMS CO EMS EMERGENCY TRANSPORT LEVEL 1 ECG 04618 [place] BAYLEE CHI ROUTINE 5 MEDICAL ECG SERV W/LEAST FOUNDATIO 12 LDS N I&[place] [address] [place] RASLAU ANGIOGRAP 5 MEDICAL FLA HY NECK SERV W/CONTRAS FOUNDATIO T/NONCONT N RAST RADEX 53964 COLE COLE SPINE 5 COL COL LUMBOSACR AL 2/3 VIEWS CHIROPRAC 75744 COLE COLE TIC 5 COL COL MANIPLTV TX EXTRASPIN AL 1/> REGION APPL 74437 CO[facility] MODALITY 5 COL COL 1/> AREAS ELEC STIMJ UNATTENDE D APPL 16921 CO[facility] MODALITY 5 COL COL 1/> AREAS TRACTION MECHANICA L CHIROPRAC 43050 COLE [place] TIC 5 COL COL MANIPULAT BEN [place] SPINAL 3-[address] [place] [address] [facility] [place] SCALF JOHN ABDOMEN & 4 RADIOLOGY PELVIS W/O CONTRAST MATERIAL BLOOD 85285 [facility] PERIPHERA L INTERP PHYS W/WRIT REPORT ECG 77188 [place] BAYLEE CHI ROUTINE 4 MEDICAL ECG SERV W/LEAST FOUNDATIO 12 LDS N I&R ONLY GROUND A0425 [facility] MILEAGE 4 CO CO PER AMBULANCE AMBULANCE STATUTE TAXIN TAXIN MILE AMB A0427 BOB BOB SERVICE 4 CO CO ALS AMBULANCE AMBULANCE EMERGENCY [place] [address] [place] [address] [facility] [place] RE HEAD/BRAI 4 MEDICAL ROYER N W/O IMAGING CONTRAST ASS MATERIAL CHIROPRA 45811 [facility] TIC 4 DONNA DONNA MANIPULAT BEN [place] SPINAL 3-[place] [address] [facility] [place] 1/> AREAS 4 DONNA DONNA EACH [address] [facility] 53442 [facility] 4 [facility] MEDICINE MANAGEMEN UFPA T 30 MIN/< INITIAL 42574 [facility] NAHUM INPATIENT 4 Medicine JR. KIMBERLEY CONSULT NEW/ESTAB PT 55 MIN INITIAL 10373 [facility] SHAINA INPATIENT 4 Medicine DAM SRI CONSULT NEW/ESTAB PT 80 MIN INITIAL [address]/[facility] MED[address]INE [address] [place] [address] MADHU DIXON ABDOMEN & 4 Radiologi LUCIANO PELVIS stacey W/O Associate CONTRAST s MATERIAL RADIOLOGI 39752 MADHU DIXON C EXAM 4 Radiologi LUCIANO CHEST 2 stacey VIEWS Associate FRONTAL&L s ATERAL CHIROPRAC 99615 [facility] [place] TIC 4 DONNA DONNA MANIPULAT BEN [place] SPINAL 3-[place] [address] ROSEM[facility] [place] 1/> AREAS 4 DONNA DONNA EACH 15 MINUTES [facility] 75964 [place] [place] TIC 4 DONNA DONNA MANIPULAT BEN [place] SPINAL 3-4 REGIONS CHIROPRAC 08371 [facility] [place] TIC 4 DONNA DONNA MANIPULAT BEN [place] SPINAL 3-4 REGIONS THERAPEUT 03132 [facility] [place] IC PX 1/> 4 DONNA DONNA AREAS EACH 15 MIN [facility] 40187 [facility] DISCHARGE 4 EDW EDW DAY MANAGEMEN T 30 MIN/< SBSQ 65090 [facility] 4 EDW EDW CARE/DAY 25 MINUTES SBSQ 24868 [facility] 4 EDW EDW CARE/DAY 25 MINUTES AMBULANCE A0429 BOB BOB SERVICE 4 CO CO BLS AMBULANCE AMBULANCE EMERGENCY TAXIN TAXIN TRANSPORT ECG 04674 BROCK BROCK ROUTINE 4 GAR GAR ECG W/LEAST 12 LDS I&R ONLY GROUND A0425 BOB BOB MILEAGE 4 CO CO PER AMBULANCE AMBULANCE STATUTE TAXIN TAXIN MILE INITIAL 76642 [facility] 4 EDW EDW CARE/[place] 50 [place] [address] ROSEMARIE HOUSTON 1/> AREAS 4 DONNA DONNA EACH 15 MIN NEUROMUSC REEDUCA CHIROPRAC 95489 [facility] [place] TIC 4 DONNA DONNA MANIPULAT BEN [place] SPINAL 3-4 REGIONS RADEX 32479 ELLEN HUGHES ANKLE 4 WILLI WILLI COMPLETE MINIMUM 3 VIEWS OBSERVATI 34504 [facility] YRN ON CARE 3 LUZ ELENA HUG DISCHARGE PHYSICIAN SERVI MANAGEMEN T SBSQ 90966 [facility] YRN OBSERVATI 3 LUZ ELENA HUG ON PHYSICIAN CARE/DAY SERVI 25 MINUTES INITIAL 00783 [facility] YRN OBSERVATI 3 LUZ ELENA HUG ON PHYSICIAN CARE/DAY SERVI 50 MINUTES CRITICAL 11464 CELLAROSI CELLAROSI CARE 3 - YORBA - YORBA ILL/INJUR PAT PAT ED PATIENT INIT 30-74 MIN ECG 65191 CELLAROSI CELLAROSI ROUTINE 3 - YORBA - YORBA ECG PAT PAT W/LEAST 12 LDS [place] [address] CEE CEE RETROPERI 3 RHO RHO TONEAL REAL TIME W/IMAGE LIMITED ECG 15999 OZOR MAR OZOR MAR ROUTINE 3 ECG W/LEAST 12 LDS I&R ONLY CT THORAX 03757 CARLINE CROWLEY JAM 3 W/CONTRAS T MATERIAL ECG 96187 MARCO LARA ROUTINE 3 RYA RYA ECG W/LEAST 12 LDS I&[place] [address] [facility] GAMMAGLOB [address] [place] [address] ULIN IGA MEDICAL MEDICAL IGD IGG C C IGM EACH BLOOD 03993 [facility] COUNT [address] [place] [address] COMPLETE MEDICAL MEDICAL AUTO&AUTO C C DIFRNTL WBC INJ J1720 [facility] HYDROCORT [address] [place] [address] [facility] MEDICAL SODIUM C C SUCCINATE TO 100 MG INJECTION J1200 [address] DIPHENHYD [facility] MEDICAL RAMINE C C HCL UP TO 50 MG INFUSION J7030 [facility] NORMAL [address] [place] [address] SALINE MEDICAL MEDICAL SOLUTION C C 1000 CC CALCIUM 73505 [facility] IONIZED [address] [place] [address] [place] [address] [facility] INFUSION [address] [place] [address] THERAPY/P MEDICAL MEDICAL ROPHYLAXI C C S /DX 1ST TO 1 [place] [address] [facility] INFUSION [address] [place] [address] THER MEDICAL MEDICAL PROPH C C ADDL SEQUENTIA L TO 1 [place] [address] [facility] INFUSION [address] [place] [address] THERAPY MEDICAL MEDICAL PROPHYLAX C C IS/DX EA HOUR INJ J1557 [facility] IMMUNE [address] [place] [address] GLOBULIN MEDICAL MEDICAL IV C C NONLYOPHI LIZED 500 MG BASIC 14864 [facility] METABOLIC [address] [place] [address] PANEL [place]ICAL [place] [address] [facility] INFUSION 3 N N HYDRATION COMMUNITY COMMUNITY EACH HOSPITA HOSPITA ADDITIONA L HOUR THERAPEUT 63075 [facility] IC 3 N N INJECTION COMMUNITY COMMUNITY IV PUSH HOSPITA HOSPITA EACH NEW DRUG COMPREHEN 74660 [facility] SIVE 3 N N METABOLIC COMMUNITY COMMUNITY PANEL HOSPITA HOSPITA THER 88709 [facility] PROPH/DX 3 N N NJX IV COMMUNITY COMMUNITY PUSH HOSPITA HOSPITA SINGLE/1S T SBST/[place] [address] [facility] LIPASE 3 N N [facility] HOSPITA HOSPITA BLOOD 07665 [facility] COUNT 3 N N SMEAR [facility] MCRSCP HOSPITA HOSPITA W/MNL DIFRNTL WBC COUNT INJECTION J2405 [facility] 3 N N ONDANSETR [facility] ON HCL HOSPITA HOSPITA PER 1 MG COLLECTIO 97753 [facility] N VENOUS 3 N N BLOOD [facility] VENIPUNCT HOSPITA HOSPITA URE BLOOD 48560 [facility] COUNT 3 N N COMPLETE [facility] [place] [address] [facility] AMYLASE 3 N N [facility] [place] [place] [address] [facility] MAXILLOFA 3 N N CIAL W/O [facility] CONTRAST HOSPITA HOSPITA MATERIAL URINE 51997 [facility] 3 N N TEST [facility] VISUAL HOSPITA HOSPITA COLOR CMPRSN METHS AMBULANCE A0429 [facility] SERVICE 3 N-ISHAN WHITMORE BLS CO EMS CO EMS EMERGENCY TRANSPORT GROUND A0425 [facility] 3 N-ISHAN WHITMORE PER CO EMS CO EMS STATUTE MILE RADEX 51053 CROWLEY JAM CROWLEY JAM NASAL 3 BONES COMPLETE MINIMUM 3 VIEWS GROUND A0425 [facility] 3 N SCOT T N SCOT T PER CO EMS CO EMS STATUTE MILE THERAPEUT 23023 [facility] IC 3 N N INJECTION [facility] IV PUSH HOSPITA HOSPITA EACH NEW DRUG INITIAL 56129 IVANAS BRIANDA MEÑO INPATIENT 3 HOSP MED CONSULT CTR NEW/ESTAB PT 110 MIN CALCIUM 85805 [facility] IONIZED [address] [place] [address] MEDICAL C C GONADOTRO 74443 [facility] PIN [address] [place] [address] NG C C HORMONE CULTURE 73813 [facility] MEDICAL MEDICAL QUANTTATI [place] [address] [facility] ESTROGENS [address] [place] [address] TOTAL MEDICAL MEDICAL C C GONADOTRO 33242 [facility] PIN [address] [place] [address] FOLLICLE MEDICAL MEDICAL STIMULATI C C NG HORMONE PROCALCIT 71011 [facility] ONIN [address] [place] [address] (PCT) MEDICAL MEDICAL C C CRITICAL [id number] ILL/INJUR MEDICAL MEDICAL ED C C PATIENT INIT 30-74 MIN URNLS DIP [address] STICK/TAB MEDICAL MEDICAL LET RGNT C C AUTO W/[place] [address] [facility] RENIN [address] [place] [address] MEDICAL MEDICAL C C GON[place]OTRO [address] [facility] PIN [address] [place] [address] CHORIONIC MEDICAL MEDICAL C C QUALITATI VE INJECTION [id number] CEFTRIAXO MEDICAL MEDICAL NE SODIUM C C PER 250 MG CULTURE 62356 [facility] BACTERIAL [address] [place] [address] BLOOD MEDICAL MEDICAL AEROBIC C C W/[place] [address] [facility] FREE [address] [place] [address] THYROXINE MEDICAL MEDICAL C C CREATININ 40818 [facility] E OTHER [address] [place] [address] SOURCE MEDICAL MEDICAL C C GLUCOSE 11415 [facility] BLOOD [address] [place] [address] [facility] [place] [address] [facility] THYROID [address] [place] [address] STIMULATI MEDICAL MEDICAL NG C C HORMONE TSH INJECTION J2405 [facility] 3 N N [facility] ON HCL HOSPITA HOSPITA PER 1 MG BLOOD 85212 [facility] COUNT 3 N N [facility]TE [facility] AUTO&AUTO HOSPITA HOSPITA DIFRNTL WBC COMPREHEN 15873 [facility] SIVE 3 N N [facility] [place] [address] [facility] INFUSION 3 N N HYDRATION COMMUNITY COMMUNITY EACH HOSPITA HOSPITA ADDITIONA L HOUR THER 85566 [facility] PROPH/DX 3 N N NJX IV COMMUNITY [facility]UNITY PUSH HOSPITA HOSPITA SINGLE/1S T SBST/DRUG HEPATIC 02932 [facility] FUNCTION [address] [place] [address] [place] [address] [facility] HOSPITAL THERAPY/P MEDICAL MEDICAL ROPHYLAXI C C S /DX 1ST [place] 1 [place] [address] [facility] 3 HOSPITAL HOSPITAL THERAPY MEDICAL MEDICAL PROPHYLAX C C IS/DX EA HOUR BASIC 87328 [facility] METABOLIC [address] [place] [address] HOSPITAL PANEL MEDICAL MEDICAL CALCIUM C C TOTAL INJECTION J1561 [facility] IMMUNE [address] [place] [address] GLOBULIN MEDICAL MEDICAL NONLYOPHI C [place] LIZED [address] [place] [address] [facility] GAMMAGLOB [address] [place] [address] IGD IGG C C IGM EACH BLOOD 06955 [facility] COUNT [address] [place] [address] COMPLETE MEDICAL MEDICAL AUTO&[place] [address] [facility] PHOSPHORU [address] [place] [address] S [place]ICAL [place] [address] [facility] MAGNESIUM [address] [place] [address] [place] [address] [facility] MAGNESIUM [address] [place] [address] MEDICAL MEDICAL C C INJ IG J1569 [facility] GAMMAGARD [address] [place] [address] LIQ IV MEDICAL MEDICAL NONLYOPHI C [place] LIZED 500 [place] [address] [facility] GAMMAGLOB [address] [place] [address] I[place] [address] [facility] PHOSPHORU [address] [place] [address] S MEDICAL MEDICAL INORGANIC C C BLOOD 80276 [facility] COUNT [address] [place] [address] COMPLETE MEDICAL MEDICAL AUTO&[place] [address] [facility] 3 H[facility]PITAL HOSPITAL THERAPY MEDICAL MEDICAL PROPHYLAX C C IS/DX EA HOUR BASIC 41073 [facility] METABOLIC [address] [place] [address] HOSPITAL PANEL [place]ICAL [place] [address] [facility] H[facility] HOSPITAL THERAPY/P MEDICAL MEDICAL ROPHYLAXI C C S /DX 1ST TO 1 HR HEPATIC 52152 [facility] FUNCTION 3 HOSPITAL HOSPITAL PANEL MEDICAL MEDICAL C C HEPATIC 36043 [facility] FUNCTION 3 [facility] [place] [address] [facility] HOSPITAL THERAPY/P MEDICAL MEDICAL ROPHYLAXI C C S /DX 1ST TO 1 HR BASIC 70208 [facility] METABOLIC [address] [place] [address] PANEL [place]ICAL [place] [address] [facility] INF[facility]ION [address] [place] [address] HOSPITAL THERAPY MEDICAL MEDICAL PROPHYLAX C C IS/DX EA HOUR BLOOD 95742 [facility] COUNT [address] [place] [address] COMPLETE MEDICAL MEDICAL AUTO&[place] [address] [facility] PHOSPHORU [address] [place] [address] S [facility] [place] [address] [facility] GAMMAGLOB [address] [place] [address] IGD IGG C C IGM EACH COLLECTIO 23934 [facility] N VENOUS [address] [place] [address] BLOOD [facility] [place] [address] [facility] MAGNESIUM [address] [place] [address] MEDICAL MEDICAL C C CALCIUM 73190 [facility] IONIZED [address] [place] [address] MEDICAL MEDICAL C C RADIOLOGI 96172 RADIOLOGY DONG C EXAM 3 MEENU CHEST 2 ASSOCIATE VIEWS S OF NOTH FRONTAL&[place] [address] [facility] MAGNESIUM [address] [place] [address] MEDICAL MEDICAL C C CALCIUM 15385 [facility] CH[facility] IONIZED [address] [place] [address] MEDICAL MEDICAL C C INJ IG J1569 [facility] GAMMAGARD [address] [place] [address] LIQ IV MEDICAL MEDICAL NONLYOPHI C C LIZED 500 [place] [address] [facility] GAMMAGLOB [address] [place] [address] IGD IGG C C IGM EACH BLOOD 29466 [facility] COUNT [address] [place] [address] COMPLETE MEDICAL MEDICAL AUTO&[place] [address] [facility] PHOSPHORU [address] [place] [address] [place] [address] [facility] INFUSION 3 HOSPITAL H[facility]PITAL THERAPY MEDICAL MEDICAL PROPHYLAX C C IS/DX EA HOUR BASIC 44569 [facility] METABOLIC 3 HOSPITAL HOSPITAL PANEL MEDICAL MEDICAL CALCIUM C C TOTAL HEPATIC 10448 [facility] FUNCTION 3 [facility] [place] [address] [facility] INFUSION [address] [place] [address] THERAPY/P MEDICAL MEDICAL ROPHYLAXI C C S /DX 1ST TO 1 HR [facility] 91047 [facility] 3 Y OF ALONZO DAY [place] MANAGEMEN I PHY T 30 MIN/< SBSQ 21182 [facility] 3 Y OF TORSTEN CARE/DAY [place] 25 I PHY MINUTES SBSQ 40746 [facility] 3 Y OF ALONZO CARE/DAY [place] 25 I PHY MINUTES SBSQ 40427 [facility] 3 Y OF ALONZO CARE/DAY [place] 25 I PHY MINUTES DXA BONE 59029 [facility] 3 Y OF BRU STUDY 1/> [place] SITES I PHY AXIAL SKEL SBSQ 55879 [facility] 3 Y OF ALONZO CARE/DAY [place] 35 I PHY MINUTES SBSQ 46291 [facility] 3 Y OF ALONZO CARE/DAY [place] 25 I PHY MINUTES RADIOLOGI 41658 [facility] C EXAM 3 Y OF MEENU CHEST 2 [facility] FRONTAL&L ATERAL INITIAL 76382 [facility] 3 Y [facility]ESTAB I PHY PT 110 MIN INITIAL 35884 [facility] 3 Y OF ALONZO CARE/DAY [place] 70 I PHY MINUTES HEPATIC 20167 [facility] FUNCTION 3 [facility] PANEL MEDICAL MEDICAL C C THERAPEUT 48262 [facility] IC PX 1/> 3 [facility] AREAS MEDICAL MEDICAL EACH 15 C C MIN EXERCISES THER 00172 [facility] PROPH/DX [address] [place] [address] NJX IV MEDICAL MEDICAL PUSH C C SINGLE/1S T SBST/DRUG RENAL 35600 [facility] FUNCTION 3 [facility] PANEL MEDICAL MEDICAL C C GROUND A0425 [place] MILEAGE 3 METRO OF METRO OF [facility] MILE THERAPEUT 88501 [facility] ACTVITY [address] [place] [address] DIRECT PT MEDICAL MEDICAL CONTACT C C EACH 15 MIN INJECTION J0610 [facility] CALCIUM [address] [place] [address] GLUCONATE MEDICAL MEDICAL PER 10 C C ML ORTHOTIC 69298 [facility] MGMT&GILBERT [address] [place] [address] [place] UXTR MEDICAL MEDICAL LXTR&/TRN C C K EA 15 [place] [address] [facility] MAGNESIUM [address] [place] [address] MEDICAL MEDICAL C C 5% J7060 [facility] DEXTROSE/ [address] [place] [address] WATER MEDICAL MEDICAL C C CALCIUM 60890 [facility] IONIZED [address] [place] [address] MEDICAL MEDICAL C C NONINVASI 82855 [facility] VE [address] [place] [address] EAR/PULSE MEDICAL MEDICAL OXIMETRY C C MULTIPLE DETER COLLECTIO 58453 [facility] N VENOUS [address] [place] [address] BLOOD [facility] MEDICAL [place] [address] [facility] PHOSPHORU [address] [place] [address] S [place]ICAL [place] [address] [facility] GAMMAGLOB [address] [place] [address] ULIN IGA MEDICAL MEDICAL IGD IGG C C IGM EACH CALCIUM 78928 [facility] IONIZED [address] [place] [address] [place] [address] [facility] MAGNESIUM [address] [place] [address] MEDICAL MEDICAL C C INJ IG J1569 [facility] GAMMAGARD [address] [place] [address] LIQ IV MEDICAL MEDICAL NONLYOPHI C C LIZED 500 [place] [address] [facility] INFUSION 3 HOSPITAL HOSPITAL THERAPY MEDICAL MEDICAL PROPHYLAX C C IS/DX EA HOUR BASIC 86079 [facility] METABOLIC [address] [place] [address] PANEL MEDICAL [place] [address] [facility] INFUSION 3 [facility] HOSPITAL THERAPY/P MEDICAL MEDICAL ROPHYLAXI C C S /DX 1ST TO 1 HR PHYSICAL 67347 [facility] THERAPY [address] [place] [address] EVALUATIO MEDICAL MEDICAL N C C HEPATIC 11877 [facility] FUNCTION 2 [facility] [place] [address] [facility] CH[facility] INFUSION 2 HOSPITAL HOSPITAL THERAPY/P MEDICAL MEDICAL ROPHYLAXI C C S /DX 1ST TO 1 HR BASIC 61259 [facility] METABOLIC 2 [facility] HOSPITAL PANEL [place]ICAL [place] [address] [facility] INFUSION 2 [facility] THERAPY MEDICAL MEDICAL PROPHYLAX C C IS/DX EA HOUR INJ IG J1569 [facility] GAMMAGARD [address] [place] [address] LIQ IV MEDICAL MEDICAL NONLYOPHI C C LIZED 500 MG RADEX 77993 [facility] POD[facility]ES[facility] HAND 2 2 [place] [address] [facility] CH[facility] MAGNESIUM 2 [facility] MEDICAL MEDICAL C C CYCLIC 80375 [facility] CITRULLIN [address] [place] [address] ATED [facility] MEDICAL PEPTIDE C C ANTIBODY EXTRACTAB 28368 [facility] LE [address] [place] [address] NUCLEAR MEDICAL MEDICAL ANTIGEN C C ANTIBODY ANY METHOD CALCIUM 56455 [facility] IONIZED [address] [place] [address] MEDICAL MEDICAL C C RADIOLOGI 45994 [facility] PODBERESK C 2 HOSP MED Y ARI EXAMINATI CTR ON KNEE 1/ VIEWS SEDIMENTA 20314 [facility] TION RATE 2 [facility] RBC [place]ICAL [place] [address] [facility] GAMMAGLOB [address] [place] [address] ULIN IGA [facility] MEDICAL IGD IGG C C IGM EACH BLOOD 75925 [facility] [address] [place] [address] COMPLETE MEDICAL MEDICAL AUTO&AUTO C C DIFRNTL WBC RHEUMATOI 95550 [facility] D FACTOR 2 [facility] QUANTITAT [place] [address] [facility] PHOSPHORU [address] [place] [address] S [facility] MEDICAL INORGANIC C C C-REACTIV 63420 [facility] CH[facility] E PROTEIN 2 [facility] MEDICAL MEDICAL C C RADEX 65481 [facility] POD[facility] SPINE 2 HOSP MED Y ARI LUMBOSACR CTR AL 2/3 [place] [address] [facility] PHOSPHORU [address] [place] [address] S MEDICAL MEDICAL INORGANIC C C BLOOD 87403 [facility] COUNT [address] [place] [address] COMPLETE MEDICAL MEDICAL AUTO&[place] [address] [facility] GAMMAGLOB 2 [facility] IGD IGG C C IGM EACH CALCIUM 46267 [facility] IONIZED 2 [facility] MEDICAL MEDICAL C C INJ IG J1569 [facility] GAMMAGARD [address] [place] [address] LIQ IV MEDICAL MEDICAL NONLYOPHI C C LIZED [address] [place] [address] [facility] MAGNESIUM 2 [facility] [place] [address] [facility] INFUSION 2 [facility] HOSPITAL THERAPY MEDICAL MEDICAL PROPHYLAX C C IS/DX EA HOUR BASIC 64996 [facility] METABOLIC 2 [facility] PANEL [place]ICAL [place] [address] [facility] CHILDREN INFUSION 2 [facility] HOSPITAL THERAPY/P MEDICAL MEDICAL ROPHYLAXI C C S /DX 1ST TO 1 HR HEPATIC [address] PANEL MEDICAL MEDICAL C C CYTP 42800 PATHOLOGY PICKLESIM CERV/VAG 2 & ER JR ERICA AUTO THIN CYTOLOGY LAYER LAB PREP MNL SCREEN URINE 35044 [place] PENDELE[place] 2 N CO N CO TEST [facility] VISUAL CENTER [place] [address] [facility] MAGNESIUM 2 [facility] MEDICAL MEDICAL C C 5% J7060 [facility] DEXTROSE/ 2 [facility] WATER [facility] [place] [address] [facility] GAMMAGLOB [address] [place] [address] MEDICAL IGD IGG C C IGM EACH BLOOD 11117 [facility] COUNT [address] [place] [address] HOSPITAL COMPLETE MEDICAL MEDICAL AUTO&[place] [address] [facility] PHOSPHORU 2 [facility] S MEDICAL MEDICAL INORGANIC C C HEPATIC 32546 [facility] FUNCTION 2 [facility] [place] [address] [facility]ILDR[facility]EN INFUSION 2 HOSPITAL HOSPITAL THERAPY/P MEDICAL MEDICAL ROPHYLAXI C C S /DX 1ST TO 1 [place] [address] [facility] CHILDRENS INFUSION 2 HOSPITAL HOSPITAL THERAPY MEDICAL MEDICAL PROPHYLAX C C IS/DX EA HOUR BASIC 61094 [facility] METABOLIC 2 [facility] PANEL MEDICAL MEDICAL CALCIUM C C TOTAL INJ IG J1569 [facility] GAMMAGARD 2 [facility] LIQ IV MEDICAL MEDICAL NONLYOPHI C C LIZED 500 MG INJ IG J1569 [facility] GAMMAGARD 2 [facility] LIQ IV MEDICAL MEDICAL NONLYOPHI C C LIZED 500 MG BASIC 65752 [facility] METABOLIC 2 [facility] PANEL [place] [address] [facility] INFUSION 2 [facility] HOSPITAL THERAPY MEDICAL MEDICAL PROPHYLAX [place] [address] [facility] INFUSION [address] [place] [address] THERAPY/P MEDICAL MEDICAL ROPHYLAXI C C S /DX 1ST TO 1 HR DRUG 13316 [facility] SCREEN [address] [place] [address] QUANTITAT MEDICAL MEDICAL BEN C C SIROLIMUS 5% J7060 [facility] DEXTROSE/ 2 [facility] [place] [address] [facility] MAGNESIUM [address] [place] [address] [place] [address] [facility] PHOSPHORU [address] [place] [address] S MEDICAL MEDICAL INORGANIC C C COLLECTIO 62711 [facility] N VENOUS [address] [place] [address] BLOOD MEDICAL MEDICAL VENIPUNCT C C URE BASIC 16895 [facility] METABOLIC [address] [place] [address] PANEL MEDICAL [place] [address] [facility] THYROID [address] [place] [address] STIMULATI MEDICAL MEDICAL [place] [address] [facility] FREE [address] [place] [address] THYROXINE MEDICAL MEDICAL C C DRUG 02536 [facility] SCREEN [address] [place] [address] QUANTITAT MEDICAL MEDICAL BEN C C SIROLIMUS HEPATIC 37495 [facility] FUNCTION 2 [facility] PANEL MEDICAL MEDICAL C C LYMPHOCYT 21919 [facility] E TR 2 [facility] MITOGEN/A MEDICAL MEDICAL G INDUCED C C BLASTOGEN ESIS ANTIBODY 73525 [facility] TETANUS [address] [place] [address] MEDICAL MEDICAL C C BLOOD 84187 [facility] COUNT [address] [place] [address] COMPLETE MEDICAL MEDICAL AUTOMATED C C ANTIBODY 71171 [facility] BACTERIUM [address] [place] [address] NOT MEDICAL MEDICAL ELSEWHERE C C SPECIFIED ANTIBODY 48585 [facility] VARICELLA [address] [place] [address] -[place] [address] [facility] GAMMAGLOB [address] [place] [address] IGD IGG C C IGM EACH BLOOD 21289 [facility] COUNT [address] [place] [address] SMEAR [facility] MEDICAL MCRSCP C C W/MNL DIFRNTL WBC COUNT FLOW 24051 [facility] CYTOMETRY [address] [place] [address] MEDICAL [facility] 2-[place] [address] [facility] [place] RETROPERI 2 RADIOLOGY LD IV A TONEAL REAL TIME W/IMAGE LIMITED RADIOLOGI 05829 [facility] [place] GENI C EXAM 2 RADIOLOGY LEON CHEST 2 VIEWS FRONTAL&[place] [address] [facility] CHILDRENS MAGNESIUM [address] [place] [address] MEDICAL MEDICAL C C FLOW 81315 [facility] CH[facility] CYTOMETRY [address] [place] [address] 2-8 C C MARKERS MICROSOMA 62157 [facility] L [address] [place] [address] ANTIBODIE MEDICAL MEDICAL S EACH C C 25 85378 [facility] HYDROXY [address] [place] [address] INCLUDES MEDICAL MEDICAL FRACTIONS C C IF PERFORMED IMMUNOASS 69646 [facility] AY [address] [place] [address] ANALYTE MEDICAL MEDICAL QUAL/SEMI C C QUAL MULTIPLE STEP BILE 39394 [facility] ACIDS [address] [place] [address] TOTAL MEDICAL MEDICAL C C PROTHROMB 97840 [facility] IN TIME [address] [place] [address] MEDICAL MEDICAL C C THROMBOPL 95009 [facility] ASTIN [address] [place] [address] TIME MEDICAL MEDICAL PARTIAL C C PLASMA/WH OLE BLOOD FLUORESCE 24174 [facility] NT [address] [place] [address] NONNFCT MEDICAL MEDICAL AGT ANTB C [place] [address] [facility] GAMMAGLOB [address] [place] [address] MEDICAL I[place] [address] [facility] PHOSPHORU [address] [place] [address] S MEDICAL MEDICAL INORGANIC C C ALPHA-FET [address] SERUM MEDICAL MEDICAL C C GENERAL [address] [place] [address] ABDOMINAL 2 WILSON WILSON REAL FT FT TIME DIVYA STOKES W/IMAGE LIMITED GROUND A0425 JERILYN JERILYN MILEAGE 2 [place] PER URBAN URBAN STATUTE COGOVT COGOVT MILE AMB A0427 JERILYN JERILYN SERVICE 2 [place] ALS URBAN URBAN EMERGENCY [place] [address] [place] [address] MICHAEL BAR MICHAEL BAR HEAD/BRAI 2 N W/[place] [address] MICHAEL BAR MICHAEL BAR THORACIC 2 SPINE W/O CONTRAST MATERIAL RADEX 85613 [facility] [place] RODRIGUES FOOT 2 RADIOLOGY TIFFANY COMPLETE MINIMUM [place] [address] [place] [facility] 1/> AREAS 2 CHIROPRAC JOSE DAVID EACH 15 TIC MIN CENTER NEUROMUSC REEDUCA THERAPEUT 42311 [facility] IC PX 1/> 2 CHIROPRAC JOSE DAVID AREAS TIC EACH 15 CENTER MIN EXERCISES [facility] 73639 [facility] T[facility] 2 CHIROPRAC JOSE DAVID MANIPULAT TIC BEN [place] CENTER SPINAL 3-4 REGIONS STRAPPING 42998 ACS ACS KNEE 2 PRIMARY PRIMARY CARE CARE PHYSICANS MELVI Steven BLOOD [address] COUNT 2 WILSON WILSON COMPLETE FT FT AUTO&AUTO DIVYA STOKES DIFRNTL WBC INJ J17[address] ST [address] HYDROCORT 2 WILSON WILSON ISONE FT FT SODIUM DIVYA STOKES SUCCINATE TO [address] D[address] 2 WILSON WILSON STICK/TAB FT FT LET RGNT DIVYA STOKES NON-AUTO W/O MICRSCP COLLECTIO [address] N VENOUS 2 WILSON RACHEL BLOOD FT FT VENIPUNCT DIVYA STOKES URE BASIC [address] METABOLIC 2 WILSON WILSON PANEL FT FT CALCIUM DIV[facility] STOKES TOTAL THER [address] PROPH/DX 2 WILSON RACHEL NJX IV FT FT PUSH DIVYA STOKES SINGLE/1S T SBST/[place] [address] [facility] INFUSION 2 WILSON CARBAJALZABETH HYDRATION FT FT [place] [address] [facility] MAXILLOFA 2 CIAL W/[place] [address] [facility] MAGNESIUM 1 [facility] MEDICAL MEDICAL C C BLOOD 44182 [facility] COUNT 1 [facility] SMEAR [facility] MEDICAL MCRSCP C C W/MNL DIFRNTL WBC COUNT UNLISTED 31451 [facility] IMMUNOLOG 1 [facility] Y MEDICAL MEDICAL C C COLLECTIO 29595 [facility] N VENOUS 1 [facility] BLOOD [facility] VENIPUNCT C C URE BLOOD 18453 [facility] COUNT 1 [facility] COMPLETE MEDICAL MEDICAL AUTOMATED C C GONADOTRO 82787 [facility] PIN 1 [facility] CHORIONIC MEDICAL [place] [address] [facility] CH[facility] HISTOPLAS 1 [facility] M MEDICAL [place] [address] [facility] CH[facility] PHOSPHORU [address] [place] [address] S [facility] INORGANIC C C DRUG 69008 [facility] CH[facility] SCREEN 1 [facility] QUANTITAT MEDICAL MEDICAL BEN C C SIROLIMUS COMPREHEN 51470 [facility] SIVE 1 [facility] METABOLIC [place] [address] ACS MERCHANT RIB 1 PRIMARY KET FRACTURE CARE UNCOMPLIC PHYSICANS ATED EACH M RADEX 87432 [facility] [place] KOSTELIC RIBS UNI 1 RADIOLOGY ANA W/POSTERO ANT CH MINIMUM [address] [place] [address] [facility] HEAD/BRAI 1 [facility] N W/O CONTRAST MATERIAL GONADOTRO 79458 [facility] PIN 1 [facility] CHORIONIC QUALITATI VE INJ J1720 [facility] HYDROCORT 1 [facility] ISONE SODIUM SUCCINATE TO 100 MG THERAPEUT 30732 [facility] IC 1 [facility] PROPHYLAC TIC/DX INJECTION SUBQ/IM GENERAL 27362 [facility] HEALTH 1 [facility] HOSPITAL PANEL MEDICAL MEDICAL C C COLLECTIO 87013 [facility] N VENOUS 1 [facility] BLOOD MEDICAL MEDICAL VENIPUNCT C C URE FLOW 98502 [facility] CYTOMETRY 1 [facility] CELL MEDICAL MEDICAL SURF C C MARKER TECHL ONLY EA URNLS DIP 98840 [facility] 1 [facility]OSPITAL STICK/TAB MEDICAL MEDICAL LET RGNT C C AUTO W/O MICROSCOP Y ALPHA-FET 86722 [facility] OPROTEIN 1 [facility] SERUM MEDICAL MEDICAL C C CREATININ 62417 [facility] CH[facility] E OTHER 1 [facility] [place] [address] [facility] PHOSPHORU 1 [facility] S MEDICAL MEDICAL INORGANIC C C FLOW 28428 [facility] CH[facility] CYTOMETRY 1 [facility] CELL MEDICAL MEDICAL SURF C C MARK[place] TECH[place] 1[place] [address] [facility] GAMMAGLOB 1 [facility] ULIN IGA MEDICAL MEDICAL IGD IGG C C IGM EACH FLUORESCE 31963 [facility] NT 1 [facility] NONNFCT MEDICAL MEDICAL AGT ANTB C C SCREEN EA ANTIBODY PROTEIN 15261 [facility] TOTAL 1 [facility] XCPT MEDICAL MEDICAL [place] [address] [facility] THYROXINE 1 [facility] TOTAL MEDICAL MEDICAL C C BLOOD 79791 [facility] COUNT 1 [facility] SMEAR MEDICAL MEDICAL MCRSCP C C W/MNL DIFRNTL WBC COUNT 25 36497 [facility] HYDROXY 1 [facility] INCLUDES MEDICAL MEDICAL FRACTIONS C C IF PERFORMED BILE 89944 [facility] ACIDS 1 [facility] TOTAL MEDICAL MEDICAL C C IMMUNOASS 27988 [facility] AY 1 [facility] ANALYTE MEDICAL MEDICAL QUAL/SEMI C C QUAL MULTIPLE STEP FLOW 40160 [facility] CYTOMETRY 1 [facility] INTERPJ MEDICAL MEDICAL 2-8 C C MARKERS MICROSOMA 55579 [facility] L 1 [facility] ANTIBODIE [place] [address] MEDICAL C C RADIOLOGI 14794 [facility] C EXAM 1 HOSP MED ALLY ANGEL CHEST 2 CTR VIEWS FRONTAL&L ATERAL INCISION 53973 [facility] LEHNERT & 1 PRIMARY RAY DRAINAGE CARE ABSCESS PHYSICANS COMPLICAT M ED/MULTIP LE BLOOD 65901 CHERISE CRISTINO SMEAR 1 [facility] L INTERP PSC PHYS W/[place] [address] [facility] [place] JAM MAXILLOFA 1 RADIOLOGY CIAL W/O CONTRAST MATERIAL GONADOTRO 91839 [facility] PIN 1 [facility] CHORIONIC QUALITATI VE RADIOLOGI 77460 RADIOLOGY LAIB JOHN C EXAM 0 CHEST 2 ASSOCIATE VIEWS S PSC FRONTAL&L ATERAL RADEX 24365 RADIOLOGY LAIB JOHN SPINE 0 CERVICAL ASSOCIATE 4 OR 5 S PSC VIEWS URINE 77362 [facility], 0 WILSON REY TEST VISUAL PHYSICIAN COLOR S CMPRSN METHS Encounters Encounter Start End Date Code Location Performer Type Date [facility] - 7 7 [facility] OUTPATIEN T HEALTHCAR E EDGE INITIAL 16313 [facility] PREVENTIV 7 7 [facility] E MEDICINE PHYSICIAN NEW PT S AGE 18-39YRS EMERGENCY 86160 [facility] 7 7 EMERGENCY DEPARTMEN T VISIT PHYSICIAN HIGH/URGE S NT SEVERITY OFFICE 14912 [facility]GEPATI[facility] 7 7 [facility] T VISIT TIC 15 CENTER MINUTES OFFICE 39760 OUTPATIEN 7 7 HEALTHCAR T VISIT 5 E MINUTES HOSPITALS OFFICE 55958 [facility] GEORGEPATI[facility] 7 7 MEDICAL T NEW 45 SERV MINUTES [facility] OUTPATIEN E T HOSPITALS OFFICE 05901 [facility] GEORGEPATIEN 7 7 CHIROPRAC T VISIT TIC 15 CENTER MINUTES OFFICE 89169 [facility] 6 6 [facility] T VISIT 5 E [facility]ES [facility] 6 6 [facility] OUTPATIEN E T HOSPITALS OFFICE 07096 [facility] 6 6 [place] T VISIT PHYSICIAN 15 S ASSIST MINUTES EMERGENCY 93646 TYLER PIÑA 6 6 PHYSICIAN CURTIS DEPARTMEN S, PLLC T VISIT MODERATE SEVERITY OFFICE 54413 [facility] 6 6 [place] MIN T VISIT HOSPITAL 25 MEDICAL MINUTES [facility] - 6 6 [facility] OFFICE 90446 [facility] 6 6 CHIROPRAC T VISIT TIC 15 CENTER MINUTES EMERGENCY 96617 TYLER WANG 6 6 PHYSICIAN CURTIS DEPARTMEN S, PLLC T VISIT MODERATE SEVERITY [facility] T VIS[facility] 5 HOSPITAL MINUTES OFFICE 32526 [facility] 6 6 CHIROP[facility] GAR T VISIT TIC 15 CENTER MINUTES EMERGENCY 64432 [facility] 5 5 EMERGENCY DEPARTMEN T VISIT PHYSICIAN HIGH/URGE S NT SEVERITY [facility] - 5 5 Y [facility] 95169 [facility] 5 5 Y T VISIT 5 HOSPITAL MINUTES OFFICE 21152 [facility] 5 5 MEDICAL JUS T VISIT SERV 15 FOUNDATIO MINUTES N OFFICE 94610 [facility] 5 5 CHIROPRAC T VISIT TIC 15 CENTER MINUTES OFFICE 81647 [facility] 5 5 MEDICAL SHEA T VISIT SERV 25 FOUNDATIO MINUTES [facility]OSP[facility] - 5 5 [facility] T ATION OFFICE 47816 [facility] 5 5 [facility] T VISIT REHABILIT 10 ATION MINUTES [facility]OSP[facility] - 5 5 Y OUTPATIEN HOSPITAL T OFFICE 51234 [facility] OUTPATIEN 5 5 Y T VISIT 5 HOSPITAL MINUTES OFFICE 28776 [facility] OUTPATIEN 5 5 HOSPITAL MIN T NEW 45 MEDICAL MINUTES ASSO OFFICE 42408 [facility] CARRANZA OUTPATIEN 5 5 MEDICAL JUS T VISIT SERV 25 FOUNDATIO MINUTES N HOSPITAL CARDINAL - 5 5 [facility] INPATIENT [facility]ABILIT ATION EMERGENCY 48619 [facility] CELLAROSI DEPT 5 5 LUZ ELENA - YORBA VISIT EMERGENCY PAT HIGH PHYS SEVERITY& THREAT FUNCJ OFFICE 88833 [facility] OUTPATIEN 5 5 COL COL T NEW 20 MINUTES EMERGENCY 42575 [facility] GERONIMO ERIC DEPT 4 4 LUZ ELENA VISIT EMERGENCY HIGH PHYS SEVERITY& [facility] Y [facility] OFFICE 96330 ROSEMARIE HOUSTON OUTPATIEN 4 4 DONNA DONNA T VISIT 15 MINUTES EMERGENCY 99154 MICHELLE HO MICHELLE HO DEPT 4 4 VISIT HIGH SEVERITY& THREAT FUNCJ OFFICE 28585 ROSEMARIE HOUSTON OUTPATIEN 4 4 DONNA DONNA T VISIT 15 MINUTES EMERGENCY 70965 [facility] 4 4 DEPARTMEN T VISIT HIGH/URGE NT SEVERITY [facility] ST - 4 4 [facility] OUTPATIEN FT T [facility] EMERGENC[facility] ST 4 4 [facility] DEPARTMEN FT T VISIT DIVYA MODERATE SEVERITY EMERGENCY [address] LINDA VARGAS DEPT 3 3 VISIT HIGH SEVERITY& THREAT FUNCJ EMERGENCY 84658 JUSTIN ANDERSON 3 3 SCO SCO DEPARTMEN T VISIT HIGH/URGE NT SEVERITY EMERGENCY 17859 MARCO LARA DEPT 3 3 RYA RYA VISIT HIGH SEVERITY& [facility] [place] [address] 3 [facility] [place] [address] 3 N [facility] T HOSPITA EMERGENCY 98071 [facility] 3 3 N [facility] T VISIT [facility]OSPITA HIGH/URGE NT SEVERITY EMERGENCY 56096 [facility] 3 3 N [facility] T VISIT HOSPITA HIGH/URGE NT SEVERITY [facility] [place] [address] 3 N [facility] T HOSPITA EMERGENCY 40726 DOMINGUEZ MIX 3 3 EITAN EITAN DEPARTMEN T VISIT MODERATE SEVERITY EMERGENCY 24504 CELLAROSI CELLAROSI 3 3 - YORBA - YORBA DEPARTMEN PAT PAT T VISIT HIGH/URGE NT SEVERITY [facility] [address] [place] [address] 3 N [facility] T HOSPITA EMERGENCY 58381 [facility] 3 3 EMERGENCY VISIT SERVICES HIGH SEVERITY& THREAT [facility] EMERGENCY 55059 [place] MIX 3 3 EMERGENCY EITAN DEPARTMEN SERVICES T VISIT MODERATE SEVERITY OFFICE 01234 [facility] 3 [facility] T VISIT [facility] 25 MINUTES [facility] [place] [address] 3 [facility] OFF[facility] 64440 [facility] 3 3 Y T VISIT 5 HOSPITAL MINUTES OFFICE 41178 [facility] T [facility]ISIT CTR 15 MINUTES HOSPITAL [facility] - 3 3 Y OUTPATI HOSPITAL T OFFICE 54856 [facility] 3 3 Y [facility] PHY MIN[facility]ES OFFICE 48665 [facility] 3 3 HOSP MED GRE T VISIT CTR 25 MINUTES [facility] 37240 [facility] 3 3 H[facility] EITAN T VISIT MEDICAL 25 C MINUTES [facility] [place] [address] 3 [facility] T C EMERGENCY 42344 [facility] DE[facility] 3 3 HOSPITAL VISIT MEDICAL [facility]IGH C SEVERITY& [facility]AT [facility] OFF[facility] 76925 [facility] 2 2 HOSP MED T NEW 45 CTR MINUTES [facility] - 2 2 [facility] T C OFFICE 60540 [facility] 2 2 HOSPITAL EITAN T VISIT MEDICAL 25 C MINUTES OFFICE 94733 [facility] 2 2 HOSP MED EITAN T VISIT CTR 25 MINUTES [facility]OSPITAL [facility] - 2 2 [facility] C PERIODIC 45982 PENDE[facility]TO PENDELETO PREVENTIV 2 2 N CO N CO E MED EST [facility] CENTER 18-39 YRS OFFICE 86857 [facility] FILIPOVIC OUTPATIEN 2 2 HOSP MED H EMILY T VISIT CTR 25 MINUTES HOSPITAL [facility] - 2 2 HOSPITAL OUTPATI MEDICAL T C OFFICE 75969 [facility] OUTPATI[facility] 2 2 HOSPITAL MAR T VISIT MEDICAL 25 C MINUTES [facility] - 2 2 [facility]PITAL OUTPATI MEDICAL T C OFFICE 35160 [facility] [place] OUTPAT[facility] 2 2 HOSPITAL GRE T VISIT MEDICAL 40 C MINUTES HOSPITAL [facility] - 2 2 [facility]OSPITAL OUTPATI MEDICAL T C OFFICE 08816 [facility] 2 2 [facility]PITAL T VISIT MEDICAL 15 C MINUTES [facility]OSP[facility] OFF[facility] 30769 [facility] INDIGO OUTPATIEN 2 2 HOSP MED H EMILY T NEW 30 CTR MINUTES EMERGENCY 36361 [facility] DEPT 2 2 PRIMARY VISIT CARE HIGH PHYSICANS SEVERITY& M THREAT FUNCJ EMERGENCY 31567 [facility] 2 2 PRIMARY EDW DEPARTMEN CARE T VISIT PHYSICANS HIGH/URGE M NT SEVERITY HOSPITAL [facility] - OTHER 2 2 HOSPITAL MEDICAL C OFFICE 33199 [facility] VISIT MED[facility] [address] [facility] - 2 2 [facility] [place] EMERGENCY 72988 [facility] DEPT 2 2 LUZ ELENA VISIT EMERGENCY HIGH PHYS SEVERITY& THREAT FUNCJ EMERGENCY 09169 [facility] 2 2 PRIMARY DEPARTMEN CARE T VISIT PHYSICANS HIGH/URGE M NT SEVERITY EMERGENCY 67749 [facility] 2 2 PRIMARY DEPARTMEN CARE T VISIT PHYSICANS MODERATE M SEVERITY OFFICE 94082 [facility] [facility] 2 2 [facility] T NEW 30 TIC MINUTES CENTER EMERGENCY 16235 [facility] 2 2 PRIMARY DEPARTMEN CARE T VISIT PHYSICANS HIGH/URGE M NT SEVERITY EMERGENCY 39313 ST 2 2 [facility] DEPARTMEN FT T VISIT DIVYA HIGH/URGE NT SEVERITY EMERGENCY 46546 IVET PEREZ DEPT 2 2 VISIT HIGH SEVERITY& THREAT [facility] ST - 2 2 [facility] OUTPATIEN FT T DIVYA EMERGENCY 20169 DIVYA DIVYA 2 2 DIANA DIANA DEPARTMEN T VISIT HIGH/URGE NT SEVERITY OFFICE 67603 [facility] 1 [facility] T VISIT MEDICAL 40 C MINUTES HOSP[facility] - OTHER 1 1 HOSPITAL MEDICAL C OFFICE 64583 YAZIGI YAZIGI OUTPATIEN 1 1 NAD NAD T VISIT 25 MINUTES EMERGENCY 88186 [facility] 1 1 PRIMARY KET DEPARTMEN CARE T VISIT PHYSICANS HIGH/URGE M NT SEVERITY [facility] 1 1 [facility] OUT[facility] T EMERGENCY 918[address] [facility] 1 1 [facility] DEPARTMEN T VISIT HIGH/URGE NT SEVERITY EMERGENCY 80782 [facility] SERRANO 1 1 PRIMARY PHI DEPARTMEN CARE T VISIT PHYSICANS MODERATE M SEVERITY OFFICE 67363 [facility] 1 H[facility]PITAL T VISIT MEDICAL 40 C MINUTES OFFICE 71707 [facility] YAZIG[facility] OUTPATI[facility] 1 1 HOSP MED NAD T VISIT CTR 25 MINUTES HOSPITAL [facility] - OTHER 1 1 [facility] 1 1 [facility] OUTPATIEN T EMERGENCY [facility] [facility] 1 1 [facility] DEPARTMEN T VISIT LOW/MODER SEVERITY EMERGENCY 41240 [facility] LE[facility]ERT 1 1 PRIMARY RAY DEPARTMEN CARE T VISIT PHYSICANS HIGH/URGE M NT SEVERITY EMERGENCY 00681 [facility] 1 1 LUZ ELENA DEPARTMEN EMERGENCY T VISIT PHYS MODERATE SEVERITY [facility] 1 1 H[facility] OUTPATIEN T [facility] - 1 1 [facility] OUTPATIEN T EMERGENCY 04527 [facility] STACK MEENU 1 1 PRIMARY DEPARTMEN CARE T VISIT PHYSICANS HIGH/URGE M NT SEVERITY EMERGENCY 09448 [facility] 1 1 [facility] DEPARTMEN T VISIT MODERATE SEVERITY EMERGENCY 15270 EMERGENCY EMERY CHICHI 0 0 CARE DEPARTMEN PHYS T VISIT [facility] HIGH/URGE NT SEVERITY OFFICE 91834 [facility] 0 0 [facility] SHE T VISIT 25 PHYSICIAN MINUTES S EMERGENCY 06698 EMERGENCY EMERY CHICHI 0 0 CARE DEPARTMEN PHYS T VISIT [facility] HIGH/URGE NT SEVERITY OFFICE 59178 [facility] 0 0 [facility] SHE T VISIT 25 PHYSICIAN MINUTES S EMERGENCY 75966 [facility] 0 0 [facility] ARI DEPARTMEN MED CTR T VISIT HIGH/URGE NT SEVERITY [facility]PITAL ST - 0 0 [facility] OUTPATIEN T MEDICALCE NTER EMERGENCY 19954 ST 0 0 [facility] DEPARTMEN T VISIT MEDICALCE MODERATE NTER SEVERITY EMERGENCY 71010 EMERGENCY VEST ANA 0 0 CARE DEPARTMEN PHYS T VISIT [facility] HIGH/URGE NT SEVERITY OFFICE [address] [facility], OUTPATIEN 0 0 [facility] CANDIDO T VISIT 15 PHYSICIAN MINUTES S OFFICE 50[address] [facility], OUTPATIEN 0 0 [facility] CANDIDO T VISIT 25 PHYSICIAN MINUTES S
--- OUTSIDE RECORDS SUMMARY | 2017-03-29 04:02 | External Medical Summary Rpt | CCD ---
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 1/> AREAS TIC TRACTION CENTER MECHANICA L APPL 87938 [place] MODALITY 7 CHIROPRAC 1/> AREAS TIC ELEC CENTER STIMJ UNATTENDE D APPL 53602 [place] MODALITY 7 CHIROPRAC 1/> AREAS TIC TRACTION CENTER MECHANICA L APPL 47516 [place] MODALITY 7 CHIROPRAC 1/> AREAS TIC ELEC CENTER STIMJ UNATTENDE D CHIROPRAC 45470 [place] TIC 7 CHIROPRAC MANIPULAT TIC [facility] CENTER SPINAL 3-4 REGIONS APPLICATI 37392 [facility] ON 7 CHIROPRAC CHIROPRAC MODALITY TIC TIC 1/> AREAS CENTER CENTER HOT/COLD PACKS MANUAL 21582 [place] THERAPY 7 CHIROPRAC TQS 1/> TIC REGIONS CENTER EACH 15 MINUTES CHIROPRAC 65230 [place] TIC 7 CHIROPRAC MANIPLTV TIC TX CENTER EXTRASPIN AL 1/> REGION CHIROPRAC 88913 [place] TIC 7 CHIROPRAC MANIPLTV TIC TX CENTER EXTRASPIN AL 1/> [place] [address] [place] PARKER 1/> AREAS 7 CHIROPRAC EACH 15 TIC MINUTES CENTER MASSAGE APPLICATI 65902 [facility] ON 7 CHIROPRAC MODALITY TIC 1/> AREAS CENTER HOT/COLD PACKS CHIROPRAC 76285 [facility] TIC 7 CHIROPRAC MANIPULAT TIC [facility] CENTER SPINAL 3-4 REGIONS APPL 05867 [facility] P[facility] MODALITY 7 CHIROPRAC 1/> AREAS TIC ELEC CENTER STIMJ UNATTENDE D APPL 89760 [facility] MOD[facility]ITY 7 CHIROPRAC CHIROPRAC 1/> AREAS TIC TIC TRACTION CENTER CENTER MECHANICA L APPL 99541 [facility] P[facility] MODALITY 7 CHIROPRAC 1/> AREAS TIC ELEC CENTER STIMJ UNATTENDE D APPL 50527 [facility] MODALITY 7 CHIROPRAC 1/> AREAS TIC TRACTION CENTER MECHANICA L CHIROPRAC 74001 [facility] TIC 7 CHIROPRAC MANIPULAT TIC [facility] CENTER SPINAL 3-4 REGIONS APPLICATI 64205 [facility] SHE[facility] ON 7 CHIROPRAC MODALITY TIC 1/> AREAS CENTER [place] [address] [facility] 1/> AREAS 7 CHIROPRAC EACH 15 TIC MINUTES CENTER MASSAGE CHIROPRAC 49112 [facility] TIC 7 CHIROPRAC MANIPLTV TIC TX CENTER EXTRASPIN AL 1/> REGION CHIROPRAC 68025 [facility] P[facility] TIC 7 CHIROPRAC MANIPLTV TIC TX CENTER EXTRASPIN AL 1/> [place] [address] [facility] 1/> AREAS 7 CHIROPRAC EACH 15 TIC MINUTES CENTER MASSAGE APPLICATI 72036 [facility] ON 7 CHIROPRAC MODALITY TIC 1/> AREAS CENTER HOT/COLD PACKS CHIROPRAC 13809 [facility] TIC 7 CHIROPRAC MANIPULAT TIC [facility] CENTER SPINAL 3-4 REGIONS APPL 60725 [facility] P[facility] MODALITY 7 CHIROPRAC 1/> AREAS TIC TRACTION CENTER MECHANICA L APPL 57840 [facility] MODALITY 7 CHIROPRAC 1/> AREAS TIC ELEC CENTER STIMJ UNATTENDE D THERAPEUT 71481 [facility] [place] IC PX 1/> 7 CHIROPRAC AREAS TIC EACH 15 CENTER MIN EXERCISES APPL 58932 [facility] MODALITY 7 CHIROPRAC 1/> AREAS TIC ELEC CENTER STIMJ UNATTENDE D APPL 94628 [facility] MODALITY 7 CHIROPRAC 1/> AREAS TIC TRACTION CENTER MECHANICA L CHIROPRAC 40460 [facility] [place] TIC 7 CHIROPRAC MANIPULAT TIC BEN TX CENTER SPINAL 3-4 REGIONS APPLICATI 31861 [facility] ON 7 CHIROPRAC MODALITY TIC 1/> AREAS CENTER [place] [address] [facility] 1/> AREAS 7 CHIROPRAC EACH 15 TIC MINUTES CENTER MASSAGE SELF-CARE 88374 [facility] /HOME 7 CHIROPRAC MGMT TIC TRAINING CENTER EACH 15 MINUTES CHIROPRAC 85405 [facility] PHILLIPS TIC 7 CHIROPRAC MANIPLTV TIC TX CENTER EXTRASPIN AL 1/> REGION CHIROPRAC 38984 [place] TIC 7 CHIROPRAC MANIPLTV TIC TX CENTER EXTRASPIN AL 1/> REGION SELF-CARE 42090 [facility] /HOME 7 CHIROPRAC MGMT TIC TRAINING CENTER EACH 15 MINUTES APPLICATI 66553 [facility] PARKER ON 7 CHIROPRAC MODALITY TIC 1/> AREAS CENTER [place] [address] [facility] 1/> AREAS 7 CHIROPRAC EACH 15 TIC MINUTES CENTER MASSAGE CHIROPRAC 91171 [facility] 7 CHIROPRAC MANIPULAT TIC [facility] CENTER SPINAL 3-4 REGIONS APPL 61754 [facility] MODALITY 7 CHIROPRAC 1/> AREAS TIC ELEC CENTER STIMJ UNATTENDE D NONEMERGE A0100 LKLP CAC BENNETTS NCY 6 INC TRANSPORT TRANSPORT REGION 9 ATION CO ATION; L TAXI [facility]OP[facility]AC 18393 [facility] L[facility] TIC 6 CHIROPRAC MANIPLTV TIC TX CENTER EXTRASPIN AL 1/> REGION THERAPEUT 49626 [facility] IC PX 1/> 6 CHIROPRAC AREAS TIC EACH 15 CENTER MIN EXERCISES CHIROPRAC 33804 [facility] TIC 6 CHIROPRAC MANIPULAT TIC [facility] CENTER SPINAL 3-4 REGIONS APPL 28989 [facility] MODALITY 6 CHIROPRAC CHIROPRAC 1/> AREAS TIC TIC ELEC CENTER CENTER STIMJ UNATTENDE D THERAPEUT 28667 [place] IC PX 1/> 6 CHIROPRAC AREAS TIC EACH 15 CENTER MIN EXERCISES CHIROPRAC 38735 [place] TIC 6 CHIROPRAC MANIPLTV TIC TX CENTER EXTRASPIN AL 1/> REGION CHIROPRAC 00549 [place] TIC 6 CHIROPRAC MANIPULAT TIC [facility] CENTER SPINAL 3-4 REGIONS CALCIUM 75210 THE THE IONIZED [address] [place] [address] [place] [address] THE THE LIPASE [address] [place] [address] [place] [address] THE THE PARATHORM [address] [place] [address] BLOOD 14718 THE THE COUNT [address] [place] [address] AUTOMATED COLLECTIO 84380 THE THE N VENOUS [address] [place] [address] [place] [address] THE THE AMYLASE [address] [place] [address] HEMOGLOBI 65929 THE THE N [address] [place] [address] YVETTE A1C COMPREHEN 92072 THE THE SIVE [address] [place] [address] METABOLIC [facility] [address] THE THE FREE [address] [place] [address] THYRO[place] [facility] [address] THE THE THYROID [address] [place] [address] NG HORMONE TSH APPL 45004 [facility] MODALITY 6 CHIROPRAC CHIROPRAC 1/> AREAS TIC TIC TRACTION CENTER CENTER MECHANICA L THERAPEUT 77616 [place]X 1/> 6 [place] AREAS TIC EACH 15 CENTER MIN EXERCISES CHIROPRAC 85656 [facility] TIC 6 CHIROPRAC MANIPLTV TIC TX CENTER EXTRASPIN AL 1/> REGION CHIROPRAC 59528 [facility] TIC 6 CHIROPRAC MANIPULAT TIC B[facility] TX CENTER SPINAL 3-4 REGIONS CHIROPRAC 21196 [facility] BAÑ[facility]EL[facility] TIC 6 CHIROPRAC MANIPLTV TIC TX CENTER EXTRASPIN AL 1/> REGION THERAPEUT 73873 [facility] IC PX 1/> 6 CHIROPRAC AREAS TIC EACH 15 CENTER MIN EXERCISES APPL 91288 [facility] MODALITY 6 CHIROPRAC CHIROPRAC 1/> AREAS TIC TIC TRACTION CENTER CENTER MECHANICA L CHIROPRAC 77284 [facility] TIC 6 CHIROPRAC MANIPULAT TIC B[facility] TX CENTER SPINAL 3-4 REGIONS CHIROPRAC 04155 [facility] TIC 6 CHIROPRAC MANIPULAT TIC B[facility] CENTER SPINAL 3-4 REGIONS APPL 89988 [facility] MODALITY 6 CHIROPRAC 1/> AREAS TIC ELEC CENTER STIMJ UNATTENDE D APPL 55901 [facility] MODALITY 6 CHIROPRAC CHIROPRAC 1/> AREAS TIC TIC TRACTION CENTER CENTER MECHANICA L THERAPEUT 45738 [facility] IC PX 1/> 6 CHIROPRAC AREAS TIC EACH 15 CENTER MIN EXERCISES CHIROPRAC 58153 [facility] TIC 6 CHIROPRAC MANIPLTV TIC TX CENTER EXTRASPIN AL 1/> REGION CHIROPRAC 74534 [facility] TIC 6 CHIROPRAC MANIPLTV TIC TX CENTER EXTRASPIN AL 1/> REGION THERAPEUT 54214 [facility]/> 6 CHIROPRAC CHIROPRAC AREAS TIC TIC EACH 15 CENTER CENTER MIN EXERCISES SELF-CARE 48872 [facility] /HOME 6 CHIROPRAC MGMT TIC TRAINING CENTER EACH 15 MINUTES CHIROPRAC 37141 [facility] TIC 6 CHIROPRAC MANIPULAT TIC [facility] CENTER SPINAL 3-4 REGIONS SURGICAL L3260 ADVANCED ADVANCED BOOT/SHOE 6 TECHNOLOG TECHNOLOG EACH IES INC IES INC RADIOLOGI 08868 [place] [facility] C 6 MEDICAL EXAMINATI IMAGING ON FOOT 2 ASS VIEWS [facility]OP[facility]AC 39492 [facility] TIC 6 CHIROPRAC MANIPLTV TIC TX CENTER EXTRASPIN AL 1/> REGION CHIROPRAC 65519 [facility] TIC 6 CHIROPRAC MANIPULAT TIC [facility] CENTER SPINAL 3-4 REGIONS THERAPEUT 70520 [place] IC PX 1/> 6 CHIROPRAC AREAS TIC EACH 15 CENTER MIN EXERCISES APPL 94312 [facility] A[facility] MODALITY 6 CHIROPRAC CHIROPRAC 1/> AREAS TIC TIC ELEC CENTER CENTER STIMJ UNATTENDE D THERAPEUT 25762 [facility] P[facility] 1/> 6 CHIROPRAC CHIROPRAC AREAS TIC TIC EACH 15 CENTER CENTER MIN EXERCISES CHIROPRAC 12618 [facility] TIC 6 CHIROPRAC GAR MANIPULAT TIC B[facility] TX CENTER SPINAL 3-4 REGIONS CHIROPRAC 63577 [facility] TIC 6 CHIROPRAC GAR MANIPLTV TIC TX CENTER EXTRASPIN AL 1/> REGION CHIROPRAC 59008 [place] TIC 6 CHIROPRAC MANIPLTV TIC TX CENTER EXTRASPIN AL 1/> REGION CHIROPRAC 80037 [facility] TIC 6 CHIROP[facility]AC MANIPULAT TIC B[facility] CENTER SPINAL 3-4 REGIONS THERAPEUT 94164 [place] IC PX 1/> 6 CH[facility]OP[facility] AREAS TIC EACH 15 CENTER MIN EXERCISES THERAPEUT 05862 [place] IC PX 1/> 6 CHIROPRAC AREAS TIC EACH 15 CENTER MIN EXERCISES APPL 34385 [place] MODALITY 6 CHIROPRAC 1/> AREAS TIC TRACTION CENTER MECHANICA L CHIROPRAC 46290 [place] TIC 6 CHIROPRAC MANIPULAT TIC B[facility] CENTER SPINAL 3-4 REGIONS CHIROPRAC 92789 [facility] TIC 6 CHIROPRAC CHIROPRAC MANIPLTV TIC TIC TX CENTER CENTER EXTRASPIN AL 1/> REGION CHIROPRAC 78935 [facility] TIC 6 CHIROPRAC MANIPLTV TIC TX CENTER EXTRASPIN AL 1/> REGION CHIROPRAC 30592 [facility] TIC 6 CHIROPRAC MANIPULAT TIC B[facility] CENTER SPINAL 3-4 REGIONS THERAPEUT 43994 [facility] IC PX 1/> 6 CHIROPRAC CHIROPRAC AREAS TIC TIC EACH 15 CENTER CENTER MIN EXERCISES BASIC 21399 [facility] METABOLIC 6 Y Y PANEL [facility] CALCIUM TOTAL BLOOD 04647 [facility] COUNT 6 Y Y COMPLETE [facility] AUTOMATED COLLECTIO 75108 [facility] N VENOUS 6 Y Y BLOOD [facility] VENIPUNCT URE PROTHROMB 39036 [facility] IN TIME 6 Y Y [facility] THROMBOPL 59313 [facility] ASTIN 6 Y Y TIME [facility] PARTIAL PLASMA/WH OLE BLOOD CHIROP[facility]AC 93636 [facility] TIC 6 CHIROP[facility] GAR MANIPULAT TIC [facility] CENTER SPINAL 3-4 REGIONS CHIROPRAC 53361 [facility] TIC 6 CHIROPRAC GAR MANIPLTV TIC TX CENTER EXTRASPIN AL 1/> REGION MANUAL 48581 [place] THERAPY 6 CHIROPRAC CHIROPRAC TQS 1/> TIC TIC REGIONS CENTER CENTER EACH 15 MINUTES MANUAL 38898 [place] THERAPY 6 CHIROPRAC TQS 1/> TIC REGIONS CENTER EACH 15 MINUTES CHIROPRAC 79171 [facility] TIC 6 CHIROPRAC MANIPLTV TIC TX CENTER EXTRASPIN AL 1/> REGION CHIROPRAC 31839 [facility] TIC 6 CHIROPRAC MANIPULAT TIC B[facility] CENTER SPINAL 1-2 REGIONS THERAPEUT 79388 [facility] IC PX 1/> 6 CHIROPRAC CHIROPRAC AREAS TIC TIC EACH 15 CENTER CENTER MIN EXERCISES THERAPEUT 26825 [facility] IC PX 1/> 6 CHIROPRAC CHIROPRAC AREAS TIC TIC EACH 15 CENTER CENTER MIN EXERCISES CHIROPRAC 65831 [facility] TIC 6 CHIROPRAC GAR MANIPLTV TIC TX CENTER EXTRASPIN AL 1/> REGION CHIROPRAC 93026 [facility] TIC 6 CHIROPRAC GAR MANIPULAT TIC [facility] CENTER SPINAL 3-4 REGIONS CHIROPRAC 15039 [facility] BA[facility] TIC 6 CHIROPRAC MANIPULAT TIC B[facility] CENTER SPINAL 3-4 REGIONS THERAPEUT 91113 [facility] IC PX 1/> 6 [facility] AREAS TIC EACH 15 CENTER MIN EXERCISES APPL 54671 [facility] MODALITY 6 CHIROPRAC CHIROPRAC 1/> AREAS TIC TIC TRACTION CENTER CENTER MECHANICA L CHIROPRAC 47826 [facility] TIC 6 CHIROPRAC MANIPLTV TIC TX CENTER EXTRASPIN AL 1/> REGION APPL 78657 [facility] MODALITY 6 CHIROPRAC CHIROPRAC 1/> AREAS TIC TIC TRACTION CENTER CENTER MECHANICA L THERAPEUT 71831 [facility] IC PX 1/> 6 CHIROPRAC GAR AREAS TIC EACH 15 CENTER MIN EXERCISES CHIROPRAC 08417 [facility] TIC 6 CHIROPRAC GAR MANIPULAT TIC B[facility] CENTER SPINAL 3-4 REGIONS CHIROPRAC 80862 [facility] BA[facility] TIC 6 CHIROPRAC GAR MANIPLTV TIC TX CENTER EXTRASPIN AL 1/> REGION CHIROPRAC 45668 [facility] TIC 6 CHIROPRAC GAR MANIPLTV TIC TX CENTER EXTRASPIN AL 1/> REGION CHIROPRAC 42660 [facility] TIC 6 CHIROPRAC GAR MANIPULAT TIC B[facility] CENTER SPINAL 3-4 REGIONS THERAPEUT 32350 [place] PX 1/> 6 CHIROPRAC GAR AREAS TIC EACH 15 CENTER MIN EXERCISES APPL 48097 [facility] MODALITY 6 CHIROPRAC CHIROPRAC 1/> AREAS TIC TIC TRACTION CENTER CENTER MECHANICA L THERAPEUT 57206 [facility] IC [facility] 1/> 6 CHIROPRAC CHIROPRAC AREAS TIC TIC EACH 15 CENTER CENTER MIN EXERCISES MANUAL 06624 [facility] THERAPY 6 CHIROPRAC TQS 1/> TIC REGIONS CENTER EACH 15 MINUTES CHIROPRAC 75461 [facility] BA[facility] TIC 6 CHIROPRAC MANIPLTV TIC TX CENTER EXTRASPIN AL 1/> REGION CHIROPRAC 11332 [facility] TIC 6 CHIROPR[facility] MANIPULAT TIC [facility] CENTER SPINAL 3-4 REGIONS CHIROPRAC 38098 [facility] BA[facility]UEL[facility] TIC 6 CHIROPRAC MANIPULAT TIC B[facility] CENTER SPINAL 3-4 REGIONS CHIROPRAC 85027 [facility] BAÑUELOS TIC 6 CHIROPRAC MANIPLTV TIC TX CENTER EXTRASPIN AL 1/> REGION MANUAL 19149 [place] [facility] THERAPY 6 CHIROPRAC TQS 1/> TIC REGIONS CENTER EACH 15 MINUTES THERAPEUT 94767 [facility] IC PX 1/> 6 [facility]OP[facility]AC CHIROPRAC AREAS TIC TIC EACH 15 CENTER CENTER MIN EXERCISES THERAPEUT 75765 [facility] IC PX 1/> 6 CHIROPRAC CHIROPRAC AREAS TIC TIC EACH 15 CENTER CENTER MIN EXERCISES MANUAL 10078 [facility] THERAPY 6 CHIROPRAC TQS 1/> TIC REGIONS CENTER EACH 15 MINUTES CHIROPRAC 62022 [facility] TIC 6 CHIROPRAC MANIPULAT TIC BEN TX CENTER SPINAL 3-4 REGIONS CHIROPRAC 10692 [facility] TIC 6 CHIROPRAC MANIPLTV TIC TX CENTER EXTRASPIN AL 1/> REGION CHIROPRAC 32468 [facility] TIC 6 CHIROPRAC MANIPLTV TIC TX CENTER EXTRASPIN AL 1/> REGION CHIROPRAC 89024 [facility] TIC 6 CHIROPRAC MANIPULAT TIC B[facility] CENTER SPINAL 3-4 REGIONS MANUAL 18815 [place] [facility] THERAPY 6 CHIROPRAC TQS 1/> TIC REGIONS CENTER EACH 15 MINUTES THERAPEUT 87845 [facility] IC PX 1/> 6 CHIROPRAC CHIROPRAC AREAS TIC TIC EACH 15 CENTER CENTER MIN EXERCISES THERAPEUT 64038 [facility] 1/> 6 CHIROPRAC CHIROPRAC AREAS TIC TIC EACH 15 CENTER CENTER MIN EXERCISES MANUAL 96174 [facility] THERAPY 6 CHIROPRAC GAR TQS 1/> TIC REGIONS CENTER EACH 15 MINUTES CHIROPRAC 13077 [facility] TIC 6 CHIROPR[facility] GAR MANIPULAT TIC BEN TX CENTER SPINAL 3-4 REGIONS CHIROPRAC 74912 [facility] TIC 6 CHIROPR[facility] GAR MANIPLTV TIC TX CENTER EXTRASPIN AL 1/> REGION CHIROPRAC 49853 [facility] TIC 6 CHIROPRAC MANIPLTV TIC TX CENTER EXTRASPIN AL 1/> REGION MANUAL 54522 [facility] THERAPY 6 CHIROPRAC TQS 1/> TIC REGIONS CENTER EACH 15 MINUTES CHIROPRAC 74413 [facility] TIC 6 CHIROPR[facility] MANIPULAT TIC [facility] CENTER SPINAL 1-2 REGIONS THERAPEUT 77881 [facility] 1/> 6 CHIROPRAC CHIROPRAC AREAS TIC TIC EACH 15 CENTER CENTER MIN EXERCISES CHIROPRAC 73921 [facility] TIC 6 CHIROPRAC GAR MANIPULAT TIC BEN TX CENTER SPINAL 3-4 REGIONS CHIROPRAC 22925 [facility] TIC 6 CHIROPRAC GAR MANIPLTV TIC TX CENTER EXTRASPIN AL 1/> REGION CHIROPRAC 83744 [facility] TIC 6 [facility] GAR MANIPLTV TIC TX CENTER EXTRASPIN AL 1/> [facility]ION [facility] 43101 [facility] 6 [facility]IROPR[facility] MANIPULAT TIC TIC [facility] CENTER SPINAL 3-4 REGIONS [facility] 27153 [facility] 5 [facility] GAR MANIPULAT TIC [facility] SPINAL 1-2 REGIONS [facility] 92243 [facility] 5 [facility] GAR MANIPULAT TIC [facility] SPINAL 1-2 REGIONS THERAPEUT 58684 [facility] IC PX 1/> 5 [facility] GAR AREAS TIC EACH 15 CENTER MIN EXERCISES [facility] 51785 [facility] TIC 5 [facility] GAR MANIPLTV TIC TX CENTER EXTRASPIN AL 1/> REGION [facility] 56810 [facility] 5 [facility] CHIROPRAC MANIPLTV TIC TIC TX CENTER CENTER EXTRASPIN AL 1/> REGION THERAPEUT 02555 [facility] IC PX 1/> 5 [facility] GAR AREAS TIC EACH 15 CENTER MIN EXERCISES [facility] 89759 [facility] 5 [facility]OP[facility] MANIPULAT TIC TIC [facility] CENTER SPINAL 1-2 REGIONS [facility]AC 60510 [facility] 5 [facility] GAR MANIPULAT TIC [facility] SPINAL 3-4 REGIONS [facility] 09069 [facility] TIC 5 [facility] GAR MANIPLTV TIC TX CENTER EXTRASPIN AL 1/> REGION RADEX 72545 RADIOLOGY BRANDSER FOOT 5 SHEA COMPLETE ASSOCIATE MINIMUM 3 S OF NOTH VIEWS [facility]OP[facility] 17973 [facility] 5 [facility] GAR MANIPLTV TIC TX CENTER EXTRASPIN AL 1/> REGION [facility] 54229 [place] [facility] 5 [facility]OP[facility] MANIPULAT TIC TIC [facility] CENTER SPINAL 1-2 REGIONS THERAPEUT 11864 [facility] ED[facility] PX 1/> 5 [facility] GAR AREAS TIC EACH 15 CENTER MIN EXERCISES THERAPEUT 36968 [facility] IC PX 1/> 5 [facility] GAR AREAS TIC EACH 15 CENTER MIN EXERCISES [facility] 52945 [facility] TIC 5 [facility] GAR MANIPULAT TIC [facility] SPINAL 1-2 REGIONS [facility] 64974 [facility] T[facility] 5 [facility] GAR MANIPLTV TIC TX CENTER EXTRASPIN AL 1/> REGION [facility]AC 13555 [facility] T[facility] 5 [facility] GAR MANIPLTV TIC TX CENTER EXTRASPIN AL 1/> REGION [facility] 92991 [facility] 5 [facility]OP[facility] MANIPULAT TIC TIC [facility] CENTER SPINAL 1-2 REGIONS THERAPEUT 99529 [facility] BAÑUELOS IC PX 1/> 5 [facility] GAR AREAS TIC EACH 15 CENTER MIN EXERCISES THERAPEUT 55965 [facility] BAÑUELOS IC PX 1/> 5 [facility] GAR AREAS TIC EACH 15 CENTER MIN EXERCISES [facility] 34041 [facility] MANIPULAT TIC TIC [facility] CENTER SPINAL 1-2 REGIONS [facility] 18440 [facility] 5 [facility]IROP[facility] MANIPLTV TIC TIC TX CENTER CENTER EXTRASPIN AL 1/> REGION CHIROPRAC 58080 [facility] 5 [facility] CHIROP[facility] MANIPLTV TIC TIC TX CENTER CENTER EXTRASPIN AL 1/> REGION [facility] 66022 [facility]OP[facility] MANIPULAT TIC TIC [facility] CENTER SPINAL 1-2 REGIONS [facility] 56336 [facility] 5 [facility] GAR MANIPULAT TIC [facility] SPINAL 1-2 REGIONS [facility] 27262 [facility] 5 [facility] GAR MANIPLTV TIC TX CENTER EXTRASPIN AL 1/> REGION [facility] 68757 [facility] 5 [facility] GAR MANIPLTV TIC TX CENTER EXTRASPIN AL 1/> REGION [facility] 45825 [facility] 5 [facility] GAR MANIPULAT TIC [facility] SPINAL 1-2 REGIONS [facility]AC 49634 [facility] 5 [facility] GAR MANIPULAT TIC [facility] SPINAL 1-2 REGIONS CHIROPRAC 58032 [facility] TIC 5 [facility] GAR MANIPLTV TIC TX CENTER EXTRASPIN AL 1/> REGION [facility] 11409 [facility] TIC 5 [facility] GAR MANIPULAT TIC [facility] SPINAL 1-2 REGIONS THERAPEUT 68962 [facility] BAÑUELOS IC PX 1/> 5 [facility] GAR AREAS TIC EACH 15 CENTER MIN EXERCISES CHIROPRAC 03604 [facility] TIC 5 [facility] GAR MANIPLTV TIC TX CENTER EXTRASPIN AL 1/> REGION CHIROPRAC 55804 [facility] BA[facility] TIC 5 [facility] GAR MANIPLTV TIC TX CENTER EXTRASPIN AL 1/> REGION THERAPEUT 72278 [facility] BAÑUELOS IC PX 1/> 5 [facility] GAR AREAS TIC EACH 15 CENTER MIN EXERCISES CHIROPRAC 52194 [facility] TIC 5 [facility] GAR MANIPULAT TIC [facility] SPINAL 1-2 REGIONS CHIROPRAC 47851 [facility] TIC 5 [facility] GAR MANIPULAT TIC [facility] SPINAL 1-2 REGIONS CHIROPRAC 04635 [facility] TIC 5 [facility] GAR MANIPLTV TIC TX CENTER EXTRASPIN AL 1/> REGION THERAPEUT 49256 [facility] BA[facility]UEL[facility] IC PX 1/> 5 [facility] GAR AREAS TIC EACH 15 CENTER MIN EXERCISES THERAPEUT 70825 [facility] BAÑUELOS IC PX 1/> 5 [facility] GAR AREAS TIC EACH 15 CENTER MIN EXERCISES CHIROPRAC 06283 [facility] TIC 5 [facility] GAR MANIPLTV TIC TX CENTER EXTRASPIN AL 1/> REGION CHIROPRAC 52147 [facility] TIC 5 CHIROPRAC GAR MANIPULAT TIC [facility] [place] [facility] SPINAL 1-2 [facility] CHIROPRAC 16034 LANNY BAÑUELOS TIC 5 [facility]OPR[facility] G[facility]IP[facility] SPINAL 1-2 [facility] CHIROPRAC 44323 KURTISNAYANA EDDA TIC 5 CHIROPRAC GAR MANIPLTV TIC TX CENTER EXTRASPIN AL 1/> REGION CHIROPRAC 70525 LANNY BAÑUELOS TIC 5 CHIROPRAC GAR MANIPLTV TIC TX CENTER EXTRASPIN AL 1/> REGION CHIROPRAC 64829 LANNY CA TIC 5 CHIROPRAC CHIROPRAC MANIPULAT TIC TIC [facility] CENTER SPINAL 1-2 [facility] CHIROPRAC 38712 LANNY BAÑUELOS TIC 5 CHIROPRAC GAR MANIPULAT TIC [facility] SPINAL 3-4 [facility] CHIROPRAC 36035 LANNY BAÑUELOS TIC 5 CHIROPRAC GAR MANIPULAT TIC [facility] SPINAL 1-2 REGIONS CHIROPRAC 36932 LANNY BAÑUELOS TIC 5 CHIROPRAC GAR MANIPULAT TIC [facility] SPINAL 1-2 REG[facility] CRTCHS E0114 ADVANCED ADVANCED UNDARM 5 TECHNOLOG TECHNOLOG OTH THAN IES INC IES INC WOOD PAIR PAD TIP&HNDGR IP RADEX 15305 [place] DIEGO KIMBERLEY FOOT 5 MEDICAL COMPLETE IMAGING MINIMUM 3 ASS VIEWS CHIROPRA 17627 LANNY BAÑUELOS TIC 5 CHIROPRAC GAR MANIPULAT TIC [facility] SPINAL 1-[address] [place] [address] LUI CARTERO HEAD/BRAI 5 NAL N W/O RADIOLOGY CONTRAST INC. MATERIAL RADIOLOGI 21827 LUI JOSEPH C 5 NAL ADA EXAMINATI RADIOLOGY ON CHEST INC. SINGLE VIEW FRONTAL UNLISTED 98417 [place] CARRAN[place] PROCEDURE 5 MEDICAL JUS NERVOUS SERV SYSTEM FOUNDATIO N INITIAL 34306 [place] MANCIA INPATIENT 5 MEDICAL L CONSULT SERV NEW/ESTAB FOUNDATIO PT 80 N MIN MICROSURG 70652 [place] C[place] TQS REQ 5 MEDICAL JUS USE SERV OPERATING FOUNDATIO N MICROSCOP E ARTL 89394 [place] CATHJ/CAN 5 MEDICAL ZOH NULJ SERVICES MNTR/GERMAN SFUSION SPX PRQ ANESTHESI 55381 [place] A 5 MEDICAL ZOH INTRACRAN SERVICES IAL VASCULAR PROCEDURE APPL 17153 COLE GALVAN MODALITY 5 COL COL 1/> AREAS TRACTION MECHANICA L APPL 34991 COLE GALVAN MODALITY 5 COL COL 1/> AREAS ELEC STIMJ UNATTENDE D CHIROPRAC 13489 COLE GALVAN TIC 5 COL COL MANIPULAT BEN [place] SPINAL 1-2 REGIONS ANKLE L1930 PATIENT PATIENT FOOT 5 AIDS INC AIDS INC ORTHOTIC PLASTIC/O [facility] [address] [facility] MED[facility] SHEA DAY SERV MANAGEMEN FOUNDATIO T 30 N MIN/< ECG 05015 [place] BAY[facility] CHI ROUTINE 5 MEDICAL ECG SERV W/LEAST FOUNDATIO 12 LDS N I&R ONLY CANE E0105 PATIENT PATIENT QUAD/3-AZ 5 AIDS INC AIDS INC JACIEL ALL MATL ADJUSTBL/ FIX W/TIPS SBSQ 93644 [place] [address] MEDICAL NAN CARE/DAY SERV 25 FOUNDATIO MINUTES N SBSQ 78364 [place] [address] MEDICAL SHEA CARE/DAY SERV 35 FOUNDATIO MINUTES N SBSQ 06418 [place] [address] MEDICAL SARAH CARE/DAY SERV 25 FOUNDATIO MINUTES N SBSQ 46187 [place] [address] MEDICAL SARAH CARE/DAY SERV 25 FOUNDATIO MINUTES N SBSQ 47768 [place] [address] MEDICAL SARAH CARE/DAY SERV 25 FOUNDATIO MINUTES N SBSQ 07898 [place] [address] MEDICAL SHEA CARE/DAY SERV 25 FOUNDATIO MINUTES N SBSQ 01600 [place] [address] MEDICAL SHEA CARE/DAY SERV 25 FOUNDATIO MINUTES N RADIOLOGI 98435 [facility] [place] [address] RADIOLOGY III ROMARIO EXAMINATI ON CHEST SINGLE VIEW [facility] 95839 [facility] DISCHARGE 5 MEDICAL JOHN DAY SERV MANAGEMEN FOUNDATIO T 30 N MIN/< INITIAL [address] [facility] 5 MEDICAL SHEA CARE/DAY SERV 70 FOUNDATIO MINUTES N SBSQ 13392 [place] [address] MEDICAL JOHN CARE/DAY SERV 25 FOUNDATIO MINUTES N SBSQ 24936 [facility] 5 MEDICAL CARE/DAY SERV 35 FOUNDATIO MINUTES N SLCTV 42224 [facility] 5 MEDICAL ABD INTRNL SERV CAROTID FOUNDATIO ART ANGIO N INTRCRNL ART SLCTV 46972 [facility] CATH 5 MEDICAL ABD VERTEBRAL SERV ART FOUNDATIO ANGIO N VERTEBRAL ARTERY SLCTV 42398 [place] ALHAJER[facility] CATH 5 MEDICAL ABD CAROTID/I SERV NNOM ART FOUNDATIO ANGIO N INTRCRANL ART SLCTV 67652 [place] CATH 5 MEDICAL ABD XTRNL SERV CAROTID FOUNDAT[place] [address] [place] SETH KWA ANGIOGRAP 5 MEDICAL HY HEAD SERV W/CONTRAS FOUNDATIO T/NONCONT N RAST GROUND A0425 [facility] MILEAGE 5 MYRANDA WHITMORE PER CO EMS CO EMS STATUTE MILE HEMOGLOBI 52133 UNIVERSIT ERICKA N 5 Y OF EDER FRACTJ/QU [place] [address] [facility] SCALF JOHN HEAD/BRAI 5 RADIOLOGY N W/O CONTRAST MATERIAL MRI BRAIN 99792 [place] ESCOTT BRAIN 5 MEDICAL EDW STEM W/O SERV W/CONTRAS FOUNDATIO T N MATERIAL RADIOLOGI 88542 [place] KOLTON C 5 MEDICAL EITAN EXAMINATI SERV ON CHEST FOUNDATIO SINGLE N VIEW FRONTAL AMB A0427 [facility] SERVICE 5 MYRANDA WHITMORE ALS CO EMS CO EMS EMERGENCY TRANSPORT LEVEL 1 ECG 64199 [place] BAY[place]E CHI ROUTINE 5 MEDICAL ECG SERV W/LEAST FOUNDATIO 12 LDS N I&[place] [address] [place] RASLAU ANGIOGRAP 5 MEDICAL FLA HY NECK SERV W/CONTRAS FOUNDATIO T/NONCONT N RAST RADEX 67056 COLE COLE SPINE 5 COL COL LUMBOSACR AL 2/3 VIEWS CHIROPRAC 02112 COLE COLE TIC 5 COL COL MANIPLTV TX EXTRASPIN AL 1/> REGION APPL 51185 COLE COLE MODALITY 5 COL COL 1/> AREAS ELEC STIMJ UNATTENDE D APPL 04644 COLE COLE MODALITY 5 COL COL 1/> AREAS TRACTION MECHANICA L CHIROPRAC 27278 COLE DOWNINGESON TIC 5 COL COL MANIPULAT [place] SPINAL 3-[place] [address] [facility] SCALF JOHN ABDOMEN & 4 RADIOLOGY PELVIS W/O CONTRAST MATERIAL BLOOD 90327 [facility] PERIPHERA L INTERP PHYS W/WRIT REPORT ECG 31479 [place] BAYLEE CHI ROUTINE 4 MEDICAL ECG SERV W/LEAST FOUNDATIO 12 LDS N I&R ONLY GROUND A0425 BOB BOB MILEAGE 4 CO CO PER AMBULANCE AMBULANCE STATUTE TAXIN TAXIN MILE AMB A0427 BOB BOB SERVICE 4 CO CO ALS AMBULANCE AMBULANCE EMERGENCY [place] [address] [place] [address] [facility] RE HEAD/BRAI 4 MEDICAL ROYER N W/O IMAGING CONTRAST ASS MATERIAL CHIROPRA 49794 ROSEMARIE HOUSTON TIC 4 DONNA DONNA MANIPULAT [place] SPINAL 3-[place] [address] ROSEMARIE HOUSTON 1/> AREAS 4 DONNA DONNA EACH 15 MINUTES [facility] [address]40 [facility] 4 [facility] MEDICINE MANAGEMEN UFPA T 30 MIN/< INITIAL 31903 [facility] NAHUM INPATIENT 4 Medicine JR. KIMBERLEY CONSULT NEW/ESTAB PT 55 MIN INITIAL 34469 [facility] SHAINA INPATIENT 4 Medicine DAM SRI CONSULT NEW/ESTAB PT 80 MIN INITIAL [address]/[facility] MEDICINE [address] [place] [address] MADHU DIXON ABDOMEN & 4 Radiologi LUCIANO PELVIS stacey W/O Associate CONTRAST s MATERIAL RADIOLOGI 34984 MADHU DIXON C EXAM 4 Radiologi LUCIANO CHEST 2 stacey VIEWS Associate FRONTAL&L s ATERAL CHIROPRAC 26820 ROSEMARIE HOUSTON TIC 4 DONNA DONNA MANIPULAT BEN [place] SPINAL 3-[place] [address] ROSEMARIE HOUSTON 1/> AREAS 4 DONNA DONNA EACH 15 MINUTES [facility] [address] ROSEMARIE HUOSTON TIC 4 DONNA DONNA MANIPULAT [place]EN [place] SPINAL 3-4 REGIONS CHIROPRAC 13304 ROSEMARIE HOUSTON TIC 4 DONNA DONNA MANIPULAT BEN [place] SPINAL 3-4 REGIONS THERAPEUT 32599 ROSEMARIE HOUSTON IC PX 1/> 4 DONNA DONNA AREAS EACH [address] [facility] 19725 [facility] DISCHARGE 4 EDW EDW DAY MANAGEMEN T 30 MIN/< SBSQ 68674 [facility] 4 EDW EDW CARE/DAY 25 MINUTES SBSQ 53434 [facility] 4 EDW EDW CARE/DAY 25 MINUTES AMBULANCE A0429 BOB BOB SERVICE 4 CO CO BLS AMBULANCE AMBULANCE EMERGENCY TAXIN TAXIN TRANSPORT ECG 82666 BROCK BROCK ROUTINE 4 GAR GAR ECG W/LEAST 12 LDS I&R ONLY GROUND A0425 BOB BOB MILEAGE 4 CO CO PER AMBULANCE AMBULANCE STATUTE TAXIN TAXIN MILE INITIAL 15551 [facility] 4 EDW EDW CARE/[place] [address] ROSEMARIE HOUSTON 1/> AREAS 4 DONNA DONNA EACH 15 MIN NEUROMUSC REEDUCA CHIROPRAC 88285 ROSEMARIE HOUSTON TIC 4 DONNA DONNA MANIPULAT BEN [place] SPINAL 3-4 REGIONS RADEX 72001 ELLEN HUGHES ANKLE 4 WILLI WILLI COMPLETE MINIMUM 3 VIEWS OBSERVATI 56110 [facility] YRN ON CARE 3 LUZ ELENA HUG DISCHARGE PHYSICIAN SERVI MANAGEMEN T SBSQ 73726 [facility] YRN OBSERVATI 3 LUZ ELENA HUG ON PHYSICIAN CARE/DAY SERVI 25 MINUTES INITIAL 60384 [facility] YRN OBSERVATI 3 LUZ ELENA HUG ON PHYSICIAN CARE/DAY SERVI 50 MINUTES CRITICAL 03792 CELLAROSI CELLAROSI CARE 3 - YORBA - YORBA ILL/INJUR PAT PAT ED PATIENT INIT 30-74 MIN ECG 84232 CELLAROSI CELLAROSI ROUTINE 3 - YORBA - YORBA ECG PAT PAT W/LEAST 12 LDS [place] [address] CEE CEE RETROPERI 3 RHO RHO TONEAL REAL TIME W/IMAGE LIMITED ECG 81028 OZOR MAR OZOR MAR ROUTINE 3 ECG W/LEAST 12 LDS I&R ONLY CT THORAX 36988 CARLINE CROWLEY JAM 3 W/CONTRAS T MATERIAL ECG 97023 MARCO LARA ROUTINE 3 RYA RYA ECG W/LEAST 12 LDS I&[place] [address] [facility] GAMMAGLOB [address] [place] [address] ULIN IGA MEDICAL MEDICAL IGD IGG C C IGM EACH BLOOD 75589 [facility] COUNT [address] [place] [address] COMPLETE MEDICAL MEDICAL AUTO&AUTO C C DIFRNTL WBC INJ J1720 [facility] HYDROCORT [address] [place] [address] [facility] MEDICAL SODIUM C C SUCCINATE TO 100 MG INJECTION J1200 [address] [facility] MEDICAL RAMINE C C HCL UP TO 50 MG INFUSION J7030 [facility] NORMAL [address] [place] [address] SALINE MEDICAL MEDICAL SOLUTION C C 1000 CC CALCIUM 90828 [facility] IONIZED [address] [place] [address] [place] [address] [facility] INFUSION [address] [place] [address] THERAPY/P MEDICAL MEDICAL ROPHYLAXI C C S /DX 1ST TO 1 [place] [address] [facility] INFUSION [address] [place] [address] THER MEDICAL MEDICAL PROPH C C ADDL SEQUENTIA L TO 1 [place] [address] [facility] INFUSION [address] [place] [address] THERAPY MEDICAL MEDICAL PROPHYLAX C C IS/DX EA HOUR INJ J1557 [facility] IMMUNE [address] [place] [address] GLOBULIN MEDICAL MEDICAL IV C C NONLYOPHI LIZED 500 MG BASIC 70813 [facility] METABOLIC [address] [place] [address] PANEL MEDICAL MEDICAL CALCIUM C C TOTAL IV [facility] INFUSION 3 N N HYDRATION COMMUNITY COMMUNITY EACH HOSPITA HOSPITA ADDITIONA L HOUR THERAPEUT 37190 [facility] IC 3 N N INJECTION COMMUNITY COMMUNITY IV PUSH HOSPITA HOSPITA EACH NEW DRUG COMPREHEN 27226 [facility] SIVE 3 N N METABOLIC COMMUNITY COMMUNITY PANEL HOSPITA HOSPITA THER 10655 [facility] PROPH/DX 3 N N NJX IV COMMUNITY COMMUNITY PUSH HOSPITA HOSPITA SINGLE/1S T SBST/[place] [address] [facility] LIPASE 3 N N [facility] HOSPITA HOSPITA BLOOD 74272 [facility] COUNT 3 N N SMEAR [facility] MCRSCP HOSPITA HOSPITA W/MNL DIFRNTL WBC COUNT INJECTION J2405 [facility] 3 N N ONDANSETR [facility] ON HCL HOSPITA HOSPITA PER 1 MG COLLECTIO 07013 [facility] N VENOUS 3 N N BLOOD [facility] VENIPUNCT HOSPITA HOSPITA URE BLOOD 22989 [facility] COUNT 3 N N COMPLETE [facility] [place] [address] [facility] AMYLASE 3 N N [facility] [place] [address] [facility] MAXILLOFA 3 N N CIAL W/O [facility] CONTRAST HOSPITA HOSPITA MATERIAL URINE 31337 [facility] 3 N N TEST [facility] VISUAL HOSPITA HOSPITA COLOR CMPRSN METHS AMBULANCE A0429 [facility] SERVICE 3 N-ISHAN WHITMORE BLS CO EMS CO EMS EMERGENCY TRANSPORT GROUND A0425 [facility] 3 N-ISHAN WHITMORE PER CO EMS CO EMS STATUTE MILE RADEX 54993 CROWLEY JAM CROWLEY JAM NASAL 3 BONES COMPLETE MINIMUM 3 VIEWS GROUND A0425 [facility] 3 N SCOT T N SCOT T PER CO EMS CO EMS STATUTE MILE THERAPEUT 37409 [facility] IC 3 N N INJECTION [facility] IV PUSH HOSPITA HOSPITA EACH NEW DRUG INITIAL 05139 IVANAS BRIANDA MEÑO INPATIENT 3 HOSP MED CONSULT CTR NEW/ESTAB PT 110 MIN CALCIUM 80775 [facility] IONIZED [address] [place] [address] MEDICAL C C GONADOTRO 76463 [facility] PIN [address] [place] [address] NG C C HORMONE CULTURE 87078 [facility] H[facility] HOSPITAL MEDICAL MEDICAL QUANTTATI [place] [address] [facility] ESTROGENS [address] [place] [address] TOTAL MEDICAL MEDICAL C C GONADOTRO 89653 [facility] PIN [address] [place] [address] FOLLICLE MEDICAL MEDICAL STIMULATI C C NG HORMONE PROCALCIT 20658 [facility] ONIN [address] [place] [address] (PCT) MEDICAL MEDICAL C C CRITICAL [address] ILL/INJUR MEDICAL MEDICAL ED C C PATIENT INIT 30-74 MIN URNLS DIP [address] STICK/TAB MEDICAL MEDICAL LET RGNT C C AUTO W/[place] [address] [facility] RENIN [address] [place] [address] MEDICAL MEDICAL C C GONADOTRO 45893 [facility] PIN [address] [place] [address] CHORIONIC MEDICAL MEDICAL C C QUALITATI VE INJECTION [id number] CEFTRIAXO MEDICAL MEDICAL NE SODIUM C C PER 250 MG CULTURE 38543 [facility] BACTERIAL [address] [place] [address] BLOOD MEDICAL MEDICAL AEROBIC C C W/[place] [address] [facility] FREE [address] [place] [address] THYROXINE MEDICAL MEDICAL C C CREATININ 90803 [facility] E OTHER [address] [place] [address] SOURCE MEDICAL MEDICAL C C GLUCOSE 27859 [facility] BLOOD [address] [place] [address] REAGENT [place] [address] [facility] THYROID [address] [place] [address] STIMULATI MEDICAL MEDICAL NG C C HORMONE TSH INJECTION J2405 [facility] 3 N N ONDANSETR COMMUNITY COMMUNITY ON HCL HOSPITA HOSPITA PER 1 MG BLOOD 78850 [facility] COUNT 3 N N COMPLETE COMMUNITY COMMUNITY AUTO&AUTO HOSPITA HOSPITA DIFRNTL WBC COMPREHEN 07973 [facility] SIVE 3 N N METABOLIC COMMUNITY [place] [address] [facility] INFUSION 3 N N HYDRATION COMMUNITY COMMUNITY EACH HOSPITA HOSPITA ADDITIONA L HOUR THER 73707 [facility] PROPH/DX 3 N N NJX IV COMMUNITY COMMUNITY PUSH HOSPITA HOSPITA SINGLE/1S T SBST/DRUG HEPATIC 75043 [facility] FUNCTION [address] [place] [address] HOSPITAL [place] [address] [facility] INFUSION HOSPITAL HOSPITAL THERAPY/P MEDICAL MEDICAL ROPHYLAXI C C S /DX 1ST TO 1 [place] [address] [facility] INFUSION 3 HOSPITAL HOSPITAL THERAPY MEDICAL MEDICAL PROPHYLAX C C IS/DX EA HOUR BASIC 18429 [facility] METABOLIC [address] [place] [address] HOSPITAL PANEL MEDICAL MEDICAL CALCIUM C C TOTAL INJECTION J1561 [facility] IMMUNE [address] [place] [address] GLOBULIN MEDICAL MEDICAL NONLYOPHI C C LIZED 500 [place] [address] [facility] GAMMAGLOB [address] [place] [address] IGD IGG C C IGM EACH BLOOD 27144 [facility] COUNT [address] [place] [address] COMPLETE MEDICAL MEDICAL AUTO&[place] [address] [facility] PHOSPHORU [address] [place] [address] S MEDICAL [place] [address] [facility] MAGNESIUM [address] [place] [address] [place] [address] [facility] MAGNESIUM [address] [place] [address] MEDICAL MEDICAL C C INJ IG J1569 [facility] GAMMAGARD [address] [place] [address] LIQ IV MEDICAL MEDICAL NONLYOPHI C C LIZED 500 [place] [address] [facility] GAMMAGLOB [address] [place] [address] I[place] [address] [facility] PHOSPHORU [address] [place] [address] S MEDICAL MEDICAL INORGANIC C C BLOOD 08517 [facility] COUNT [address] [place] [address] COMPLETE MEDICAL MEDICAL AUTO&[place] [address] [facility] INFUSION 3 HOSPITAL HOSPITAL THERAPY MEDICAL MEDICAL PROPHYLAX C C IS/DX EA HOUR BASIC 55082 [facility] METABOLIC [address] [place] [address] HOSPITAL PANEL [place]ICAL [place] [address] [facility] INFUSION 3 HOSPITAL HOSPITAL THERAPY/P MEDICAL MEDICAL ROPHYLAXI C C S /DX 1ST TO 1 HR HEPATIC 36774 [facility] FUNCTION 3 HOSPITAL HOSPITAL PANEL MEDICAL MEDICAL C C HEPATIC 09070 [facility] FUNCTION 3 [facility] [place] [place] [address] [facility] INFUSION HOSPITAL HOSPITAL THERAPY/P MEDICAL MEDICAL ROPHYLAXI C C S /DX 1ST TO 1 HR BASIC 29102 [facility] METABOLIC [address] [place] [address] PANEL [place]ICAL [place] [address] [facility] INFUSION [address] [place] [address] HOSPITAL THERAPY MEDICAL MEDICAL PROPHYLAX C C IS/DX EA HOUR BLOOD 87737 [facility] COUNT [address] [place] [address] COMPLETE MEDICAL MEDICAL AUTO&[place] [address] [facility] PHOSPHORU [address] [place] [address] [facility] [place] [address] [facility] GAMMAGLOB [address] [place] [address] IGD IGG C C IGM EACH COLLECTIO 84855 [facility] N VENOUS [address] [place] [address] BLOOD [facility] [place]ICAL [place] [address] [facility] MAGNESIUM [address] [place] [address] MEDICAL MEDICAL C C CALCIUM 83710 [facility] IONIZED [address] [place] [address] MEDICAL MEDICAL C C RADIOLOGI 92225 RADIOLOGY DONG C EXAM 3 MEENU CHEST 2 ASSOCIATE VIEWS S OF NOTH FRONTAL&[place] [address] [facility] MAGNESIUM [address] [place] [address] MEDICAL MEDICAL C C CALCIUM 90187 [facility] IONIZED [address] [place] [address] MEDICAL MEDICAL C C INJ IG J1569 [facility] GAMMAGARD [address] [place] [address] LIQ IV MEDICAL MEDICAL NONLYOPHI C C LIZED 500 [place] [address] [facility] GAMMAGLOB [address] [place] [address] IGD IGG C C IGM EACH BLOOD 47680 [facility] COUNT [address] [place] [address] COMPLETE MEDICAL MEDICAL AUTO&[place] [address] [facility] PHOSPHORU [address] [place] [address] [place] [address] [facility] INFUSION 3 HOSPITAL HOSPITAL THERAPY MEDICAL MEDICAL PROPHYLAX C C IS/DX EA HOUR BASIC 99042 [facility] METABOLIC 3 HOSPITAL HOSPITAL PANEL MEDICAL MEDICAL CALCIUM C C TOTAL HEPATIC 19108 [facility] FUNCTION 3 [facility] [place] [address] [facility] INFUSION [address] [place] [address] THERAPY/P MEDICAL MEDICAL ROPHYLAXI C C S /DX 1ST TO 1 HR HOSPITAL 27621 [facility] 3 Y OF ALONZO DAY [place] MANAGEMEN I PHY T 30 MIN/< SBSQ 33032 [facility] 3 Y OF TORSTEN CARE/DAY [place] 25 I PHY MINUTES SBSQ 76955 [facility] 3 Y OF ALONZO CARE/DAY [place] 25 I PHY MINUTES SBSQ 73510 [facility] 3 Y OF ALONZO CARE/DAY [place] 25 I PHY MINUTES DXA BONE 76185 [facility] 3 Y OF BRU STUDY 1/> [place] SITES I PHY AXIAL SKEL SBSQ 46249 [facility] 3 Y OF ALONZO CARE/DAY [place] 35 I PHY MINUTES SBSQ 35363 [facility] 3 Y OF ALONZO CARE/DAY [place] 25 I PHY MINUTES RADIOLOGI 64898 [facility] C EXAM 3 Y OF MEENU CHEST 2 [facility] V[facility] PHY FRONTAL&L ATERAL INITIAL 19753 [facility] INPATIENT 3 Y OF TORSTEN CONSULT [facility] NEW/ESTAB I PHY PT 110 MIN INITIAL 92929 [facility] 3 Y OF ALONZO CARE/DAY [place] 70 I PHY MINUTES HEPATIC 60362 [facility] FUNCTION 3 [facility] PANEL MEDICAL MEDICAL C C THERAPEUT 71716 [facility] IC PX 1/> 3 [facility] AREAS MEDICAL MEDICAL EACH 15 C C MIN EXERCISES THER 53179 [facility] PROPH/DX [address] [place] [address] NJX IV MEDICAL MEDICAL PUSH C C SINGLE/1S T SBST/DRUG RENAL 83558 [facility] FUNCTION 3 [facility] PANEL MEDICAL MEDICAL C C GROUND [id number] [place] [facility] 3 [facility] MILE THERAPEUT 85213 [facility] ACTVITY [address] [place] [address] DIRECT PT MEDICAL MEDICAL CONTACT C C EACH 15 MIN INJECTION [id number] [facility] CALCIUM [address] [place] [address] GLUCONATE MEDICAL MEDICAL PER 10 C C ML ORTHOTIC 73606 [facility] MGMT&GILBERT [address] [place] [address] [place] UXTR MEDICAL MEDICAL LXTR&/TRN C C K EA [address] [place] [address] [facility] MAGNESIUM [address] [place] [address] MEDICAL MEDICAL C C 5% J7060 [facility] DEXTROSE/ [address] [place] [address] WATER MEDICAL MEDICAL C C CALCIUM 80519 [facility] IONIZED [address] [place] [address] MEDICAL MEDICAL C C NONINVASI 62521 [facility] VE [address] [place] [address] EAR/PULSE MEDICAL MEDICAL OXIMETRY C C MULTIPLE DETER COLLECTIO 45078 [facility] N VENOUS [address] [place] [address] [facility] [place] [address] [facility] PHOSPHORU [address] [place] [address] S [place]ICAL [place] [address] [facility] GAMMAGLOB [address] [place] [address] ULIN IGA MEDICAL MEDICAL IGD IGG C C IGM EACH CALCIUM 46943 [facility] IONIZED [address] [place] [address] [place] [address] [facility] MAGNESIUM [address] [place] [address] MEDICAL MEDICAL C C INJ IG J1569 [facility] GAMMAGARD [address] [place] [address] LIQ IV MEDICAL MEDICAL NONLYOPHI C C LIZED [address] [place] [address] [facility] INFUSION 3 [facility] THERAPY MEDICAL MEDICAL PROPHYLAX C C IS/DX EA HOUR BASIC 04904 [facility] METABOLIC [address] [place] [address] PANEL MEDICAL [place] [address] [facility] INFUSION 3 [facility] THERAPY/P MEDICAL MEDICAL ROPHYLAXI C C S /DX 1ST TO 1 HR PHYSICAL 55101 [facility] THERAPY [address] [place] [address] EVALUATIO MEDICAL MEDICAL N C C HEPATIC 03430 [facility] FUNCTION 2 [facility] [place] [place] [address] [facility] INFUSION 2 [facility] H[facility]PITAL THERAPY/P MEDICAL MEDICAL ROPHYLAXI C C S /DX 1ST TO 1 HR BASIC 32976 [facility] METABOLIC 2 [facility] PANEL MEDICAL [place] [address] [facility] INFUSION 2 [facility] THERAPY MEDICAL MEDICAL PROPHYLAX C C IS/DX EA HOUR INJ IG J1569 [facility] GAMMAGARD [address] [place] [address] LIQ IV MEDICAL MEDICAL NONLYOPHI C C LIZED 500 MG RADEX 40732 [facility] PODBERESK HAND 2 2 [place] [address] [facility] CH[facility] MAGNESIUM 2 [facility] MEDICAL MEDICAL C C CYCLIC 49623 [facility] [place]ULL[place] [address] [place] [address] [facility]ICAL PEPTIDE C C ANTIBODY EXTRACTAB 59297 [facility] [address] [place] [address] NUCLEAR MEDICAL MEDICAL ANTIGEN C C ANTIBODY ANY METHOD CALCIUM 35874 [facility] IONIZED [address] [place] [address] MEDICAL MEDICAL C C RADIOLOGI 09341 [facility] PODBERESK C 2 HOSP MED Y ARI EXAMINATI CTR ON KNEE 1/ VIEWS SEDIMENTA 71297 [facility]ILDRENS TION RATE 2 [facility] RBC [place] [address] [facility] GAMMAGLOB [address] [place] [address] [facility] MEDICAL IGD IGG C C IGM EACH BLOOD 60500 [facility] COUNT [address] [place] [address] COMPLETE MEDICAL MEDICAL AUTO&AUTO C C DIFRNTL WBC RHEUMATOI 01689 [facility] CHILDRENS D FACTOR 2 [facility] QUANTITAT [place] [address] [facility] CHILDREN PHOSPHORU [address] [place] [address] [facility] MEDICAL INORGANIC C C C-REACTIV 63880 [facility] CHILDRENS E PROTEIN 2 [facility] MEDICAL MEDICAL C C RADEX 21505 CHILDRENS PODBERESK SPINE 2 HOSP MED Y ARI LUMBOSACR CTR AL 2/3 [place] [address] CHILDRENS CHILDRENS PHOSPHORU [address] [place] [address] S MEDICAL MEDICAL INORGANIC C C BLOOD 49492 [facility] [address] [place] [address] COMPLETE MEDICAL MEDICAL AUTO&[place] [address] [facility]DREN [facility]ILDRENS GAMMAGLOB 2 [facility] IGD IGG C C IGM EACH CALCIUM 44093 CHILDREN CHILDRENS IONIZED 2 [facility] MEDICAL MEDICAL C C INJ IG J1569 [facility]EN CHILDRENS GAMMAGARD [address] [place] [address] LIQ IV MEDICAL MEDICAL NONLYOPHI C C LIZED [address] [place] [address] CHILDREN CHILDREN MAGNESIUM 2 [facility] [place] [address] CHILDREN CHILDRENS INFUSION 2 [facility] THERAPY MEDICAL MEDICAL PROPHYLAX C C IS/DX EA HOUR BASIC 91173 [facility]ILDREN CHILDREN METABOLIC 2 [facility] PANEL [place] [address] [facility] CHILDREN INFUSION 2 [facility] HOSPITAL THERAPY/P MEDICAL MEDICAL ROPHYLAXI C C S /DX 1ST TO 1 HR HEPATIC [address] PANEL MEDICAL MEDICAL C C CYTP 93885 PATHOLOGY PICKLESIM CERV/VAG 2 & ER JR ERICA AUTO THIN CYTOLOGY LAYER LAB PREP MNL SCREEN URINE 33340 P[place] PENDELETO 2 N CO N CO TEST [facility] VISUAL CENTER [place] [address] [facility] MAGNESIUM 2 [facility] MEDICAL MEDICAL C C 5% J7060 [facility] DEXTROSE/ 2 [facility] [place] [address] [facility] GAMMAGLOB [address] [place] [address] MEDICAL IGD IGG C C IGM EACH BLOOD 07946 [facility]DR[facility] COUNT [address] [place] [address] HOSPITAL COMPLETE MEDICAL MEDICAL AUTO&[place] [address] CHILDREN CHILDRENS PHOSPHORU 2 [facility] S MEDICAL MEDICAL INORGANIC C C HEPATIC 02040 CHILDREN CHILDREN FUNCTION 2 [facility] [place] [address] CHILDREN CHILDREN INFUSION 2 HOSPITAL HOSPITAL THERAPY/P MEDICAL MEDICAL ROPHYLAXI C C S /DX 1ST TO 1 [place] [address] [facility] CHILDRENS INFUSION 2 HOSPITAL HOSPITAL THERAPY MEDICAL MEDICAL PROPHYLAX C C IS/DX EA HOUR BASIC 52403 [facility] METABOLIC 2 [facility] PANEL MEDICAL MEDICAL CALCIUM C C TOTAL INJ IG J1569 [facility] GAMMAGARD 2 [facility] LIQ IV MEDICAL MEDICAL NONLYOPHI C C LIZED 500 MG INJ IG J1569 [facility] GAMMAGARD 2 [facility] LIQ IV MEDICAL MEDICAL NONLYOPHI C C LIZED 500 MG BASIC 88612 [facility] METABOLIC 2 [facility] PANEL MEDICAL [place] [address] [facility] INFUSION 2 [facility] HOSPITAL THERAPY MEDICAL MEDICAL PROPHYLAX C C IS/[place] [address] [facility] INFUSION [address] [place] [address] THERAPY/P MEDICAL MEDICAL ROPHYLAXI C C S /DX 1ST TO 1 HR DRUG 57580 [facility] SCREEN [address] [place] [address] QUANTITAT MEDICAL MEDICAL BEN C C SIROLIMUS 5% J7060 [facility] DEXTROSE/ 2 [facility] [place] [address] [facility] MAGNESIUM [address] [place] [address] [place] [address] [facility] PHOSPHORU [address] [place] [address] S MEDICAL MEDICAL INORGANIC C C COLLECTIO 77621 CHILDREN CHILDRENS N VENOUS [address] [place] [address] BLOOD MEDICAL MEDICAL VENIPUNCT C C URE BASIC 26854 [facility] METABOLIC [address] [place] [address] PANEL MEDICAL [place] [address] [facility] THYROID [address] [place] [address] STIMULATI MEDICAL MEDICAL [place] [address] [facility] FREE [address] [place] [address] THYROXINE MEDICAL MEDICAL C C DRUG 89240 [facility] SCREEN [address] [place] [address] QUANTITAT MEDICAL MEDICAL BEN C C SIROLIMUS HEPATIC 99115 [facility] FUNCTION 2 [facility] PANEL MEDICAL MEDICAL C C LYMPHOCYT 69075 [facility] E TR 2 [facility] MITOGEN/A MEDICAL MEDICAL G INDUCED C C BLASTOGEN ESIS ANTIBODY 71055 [facility]EN CHILDRENS TETANUS [address] [place] [address] MEDICAL MEDICAL C C BLOOD 77707 [facility]ILDRENS COUNT [address] [place] [address] COMPLETE MEDICAL MEDICAL AUTOMATED C C ANTIBODY 78103 [facility]EN CHILDRENS BACTERIUM [address] [place] [address] NOT MEDICAL MEDICAL ELSEWHERE C C SPECIFIED ANTIBODY 60722 [facility]EN CHILDREN VARICELLA [address] [place] [address] -[place] [address] [facility] GAMMAGLOB [address] [place] [address] IGD IGG C C IGM EACH BLOOD 13538 [facility]EN CHILDRENS COUNT [address] [place] [address] [facility] MEDICAL MCRSCP C C W/MNL DIFRNTL WBC COUNT FLOW 50619 [facility]EN CHILDRENS CYTOMETRY [address] [place] [address] [facility] 2-[place] [address] [facility] [place] WESTERFIE RETROPERI 2 RADIOLOGY LD IV A TONEAL REAL TIME W/IMAGE LIMITED RADIOLOGI 16334 [facility] [place] GENI C EXAM 2 RADIOLOGY LEON CHEST 2 VIEWS FRONTAL&[place] [address] [facility] CHILDRENS MAGNESIUM [address] [place] [address] MEDICAL MEDICAL C C FLOW 90904 [facility]DREN CHILDRENS CYTOMETRY [address] [place] [address] 2-8 C C MARKERS MICROSOMA 44650 [facility] L [address] [place] [address] ANTIBODIE MEDICAL MEDICAL S EACH C C 25 62539 [facility] HYDROXY [address] [place] [address] INCLUDES MEDICAL MEDICAL FRACTIONS C C IF PERFORMED IMMUNOASS 53846 [facility] AY [address] [place] [address] ANALYTE MEDICAL MEDICAL QUAL/SEMI C C QUAL MULTIPLE STEP BILE 16193 [facility] ACIDS [address] [place] [address] TOTAL MEDICAL MEDICAL C C PROTHROMB 21128 [facility]ENS CHILDRENS IN TIME [address] [place] [address] MEDICAL MEDICAL C C THROMBOPL 69283 [facility] ASTIN [address] [place] [address] TIME MEDICAL MEDICAL PARTIAL C C PLASMA/WH OLE BLOOD FLUORESCE 77606 [facility] NT [address] [place] [address] NONNFCT MEDICAL MEDICAL AGT ANTB [place] [address] [facility] [address] [place] [address] MEDICAL [place] [address] [facility] PHOSPHORU [address] [place] [address] S MEDICAL MEDICAL INORGANIC C C ALPHA-FET [address] SERUM MEDICAL MEDICAL C C GENERAL [address] [place] [address] ABDOMINAL 2 WILSON WILSON REAL FT FT TIME DIVYA STOKES W/IMAGE LIMITED GROUND A0425 JERILYN JERILYN MILEAGE 2 FAYETTE FAYETTE PER URBAN URBAN STATUTE COGOVT COGOVT MILE AMB A0427 JERILYN JERILYN SERVICE 2 FAYETTE FAYETTE ALS URBAN URBAN EMERGENCY [place] [address] MICHAEL BAR MICHAEL BAR HEAD/BRAI 2 N W/[place] [address] MICHAEL BAR MICHAEL BAR THORACIC 2 SPINE W/O CONTRAST MATERIAL RADEX 16977 [place] [place] RODRIGUES FOOT 2 RADIOLOGY TIFFANY COMPLETE MINIMUM [address] [place] [address] [place] EBONY[facility]AM 1/> AREAS 2 [facility] JOSE DAVID EACH 15 TIC MIN CENTER NEUROMUSC REEDUCA THERAPEUT 99623 [facility] IC PX 1/> 2 [facility] JOSE DAVID AREAS TIC EACH 15 CENTER MIN EXERCISES [facility] 358[address] [place] [facility] TIC 2 [facility] JOSE DAVID MANIPULAT TIC BEN [place] CENTER SPINAL 3-4 REGIONS STRAPPING 59146 ACS ACS KNEE 2 PRIMARY PRIMARY CARE CARE PHYSICANS MELVI Steven BLOOD [address] COUNT 2 WILSON WILSON COMPLETE FT FT AUTO&AUTO DIVYA STOKES DIFRNTL WBC INJ J1720 ST ST HYDROCORT 2 WILSON WILSON ISONE FT FT SODIUM DIVYA STOKES SUCCINATE TO [address] D[address] 2 WILSON WILSON STICK/TAB FT FT LET RGNT DIVYA STOKES NON-AUTO W/O MICRSCP COLLECTIO [address] N VENOUS 2 WILSON RACHEL BLOOD FT FT VENIPUNCT DIVYA STOKES URE BASIC [address] METABOLIC 2 WILSON WILSON PANEL FT FT CALCIUM IDVYA STOKES TOTAL THER [address] PROPH/DX 2 WILSON RACHEL NJX IV FT FT PUSH DIVYA STOKES SINGLE/1S T SBST/[place] [address] [facility] INFUSION 2 WILSON CARBAJALZABETH HYDRATION FT FT E[place] [address] [facility]HAEL [facility] MAXILLOFA 2 CIAL W/[place] [address] CHILDRENS CHILDRENS MAGNESIUM 1 [facility] MEDICAL MEDICAL C C BLOOD 66914 CHILDRENS CHILDRENS COUNT 1 [facility] MEDICAL MCRSCP C C W/MNL DIFRNTL WBC COUNT UNLISTED 91776 CHILDREN CHILDRENS IMMUNOLOG 1 [facility] Y MEDICAL MEDICAL C C COLLECTIO 23358 CHILDRENS CHILDRENS N VENOUS 1 [facility] BLOOD [facility] VENIPUNCT C C URE BLOOD 53809 CHILDRENS CHILDRENS COUNT 1 [facility] COMPLETE MEDICAL MEDICAL AUTOMATED C C GONADOTRO 99803 CHILDREN CHILDRENS PIN 1 [facility] CHORIONIC MEDICAL [place] [address] CHILDREN CHILDRENS HISTOPLAS 1 [facility] M MEDICAL [place] [address] CHILDREN CHILDRENS PHOSPHORU [address] [place] [address] S [facility] INORGANIC C C DRUG 33658 CHILDRENS CHILDRENS SCREEN 1 [facility] QUANTITAT MEDICAL MEDICAL BEN C C SIROLIMUS COMPREHEN 39761 CHILDREN CHILDRENS SIVE 1 [facility] METABOLIC [place]ICAL [place] [address] ACS MERCHANT RIB 1 PRIMARY KET FRACTURE CARE UNCOMPLIC PHYSICANS ATED EACH M RADEX 03153 [place] [place] KOSTELIC RIBS UNI 1 RADIOLOGY ANA W/POSTERO ANT CH MINIMUM [address] [place] [address] [facility] HEAD/BRAI 1 [facility] N W/O CONTRAST MATERIAL GONADOTRO 79940 [facility] PIN 1 [facility] CHORIONIC QUALITATI VE INJ J1720 [facility] HYDROCORT 1 [facility] ISONE SODIUM SUCCINATE TO 100 MG THERAPEUT 82210 [facility] IC 1 [facility] PROPHYLAC TIC/DX INJECTION SUBQ/IM GENERAL 37811 CHILDRENS CHILDRENS HEALTH 1 [facility] HOSPITAL PANEL MEDICAL MEDICAL C C COLLECTIO 00632 CHILDRENS CHILDRENS N VENOUS 1 [facility] BLOOD MEDICAL MEDICAL VENIPUNCT C C URE FLOW 14595 CHILDRENS CHILDRENS CYTOMETRY 1 [facility] CELL MEDICAL MEDICAL SURF C C MARKER TECHL ONLY EA URNLS DIP 61094 [facility]ILDRENS CHILDRENS 1 [facility] HOSPITAL STICK/TAB MEDICAL MEDICAL LET RGNT C C AUTO W/O MICROSCOP Y ALPHA-FET 92695 CHILDRENS CHILDRENS OPROTEIN 1 [facility] SERUM MEDICAL MEDICAL C C CREATININ 24620 CHILDRENS CHILDRENS E OTHER 1 [facility] [place] [address] CHILDRENS CHILDRENS PHOSPHORU 1 [facility] S MEDICAL MEDICAL INORGANIC C C FLOW 31380 [facility]ILDRENS CHILDRENS CYTOMETRY 1 [facility] CELL MEDICAL MEDICAL SURF C C MARKER TECHL [place] 1[place] [address] CHILDRENS CHILDRENS GAMMAGLOB 1 [facility] ULIN IGA MEDICAL MEDICAL IGD IGG C C IGM EACH FLUORESCE 70592 [facility]ILDRENS CHILDRENS NT 1 [facility] NONNFCT MEDICAL MEDICAL AGT ANTB C C SCREEN EA ANTIBODY PROTEIN 75993 [facility]ENS CHILDRENS TOTAL 1 [facility] XCPT MEDICAL MEDICAL RE[place] [address] [facility]DRENS CHILDRENS THYROXINE 1 [facility] TOTAL MEDICAL MEDICAL C C BLOOD 52027 CHILDRENS CHILDRENS COUNT 1 [facility] SMEAR MEDICAL MEDICAL MCRSCP C C W/MNL DIFRNTL WBC COUNT 25 24688 [facility]ILDRENS CHILDRENS HYDROXY 1 [facility] INCLUDES MEDICAL MEDICAL FRACTIONS C C IF PERFORMED BILE 20882 [facility]ENS [facility]ILDRENS ACIDS 1 [facility]OSPITAL TOTAL MEDICAL MEDICAL C C IMMUNOASS 13438 CHILDRENS CHILDRENS AY 1 [facility] ANALYTE MEDICAL MEDICAL QUAL/SEMI C C QUAL MULTIPLE STEP FLOW 35061 [facility]ILDRENS CHILDRENS CYTOMETRY 1 [facility] INTERPJ MEDICAL MEDICAL 2-8 C C MARKERS MICROSOMA 98881 CHILDRENS CHILDRENS L 1 [facility] ANTIBODIE [place] [address] MEDICAL C C RADIOLOGI 87307 [facility] C EXAM 1 HOSP MED ALLY ANGEL CHEST 2 CTR VIEWS FRONTAL&L ATERAL INCISION 71708 ACS LEHNERT & 1 PRIMARY RAY DRAINAGE CARE ABSCESS PHYSICANS COMPLICAT M ED/MULTIP LE BLOOD 12770 CHERISE CRISTINO SMEAR 1 [facility] L INTERP PSC PHYS W/[place] [address] [facility] [place] JAM MAXILLOFA 1 RADIOLOGY CIAL W/O CONTRAST MATERIAL GONADOTRO 19989 [facility] PIN 1 [facility] CHORIONIC QUALITATI VE RADIOLOGI 47357 RADIOLOGY LAIB JOHN C EXAM 0 CHEST 2 ASSOCIATE VIEWS S PSC FRONTAL&L ATERAL RADEX 82522 RADIOLOGY LAIB JOHN SPINE 0 CERVICAL ASSOCIATE 4 OR 5 S PSC VIEWS URINE 30372 [facility], 0 WILSON REY TEST VISUAL PHYSICIAN COLOR S CMPRSN METHS Encounters Encounter Start End Date Code Location Performer Type Date [facility] ST - 7 7 [facility] OUTPATIEN T HEALTHCAR E EDGE INITIAL 40604 [facility] S[facility] PREVENTIV 7 7 WILSON E MEDICINE PHYSICIAN NEW PT S AGE 18-39YRS EMERGENCY 93537 [facility] 7 7 EMERGENCY DEPARTMEN T VISIT PHYSICIAN HIGH/URGE S NT SEVERITY OFFICE 69943 [facility] 7 7 [facility] T VISIT TIC 15 CENTER MINUTES OFFICE 51516 OUTPATIEN 7 7 HEALTHCAR T VISIT 5 E MINUTES HOSPITALS OFFICE 16497 [facility] GEORGEPATIEN 7 7 MEDICAL T NEW 45 SERV MINUTES [facility] - 7 7 [facility]ALTH[facility] OUTPATIEN E T HOSPITALS OFFICE 67145 [facility] GEORGEPATIEN 7 7 [facility] T VISIT TIC 15 CENTER MINUTES OFFICE 39784 [facility] 6 6 HEALTHCAR T VISIT 5 E MINUTES [facility] - 6 6 HEALTHCAR OUTPATIEN E T HOSPITALS OFFICE 30583 [facility] 6 6 [place] KANG T VISIT PHYSICIAN 15 S ASSIST MINUTES EMERGENCY 57647 TYLER PIÑA 6 6 PHYSICIAN CURTIS DEPARTMEN S, PLLC T VISIT MODERATE SEVERITY OFFICE 69977 [facility] 6 6 PARMINDER MIN T VISIT HOSPITAL 25 MEDICAL MINUTES [facility] - 6 6 [facility] T OFFICE 28557 [facility] 6 6 CHIROP[facility]AC T VISIT TIC 15 CENTER MINUTES EMERGENCY 86447 TYLER WANG 6 6 PHYSICIAN CURTIS DEPARTMEN S, PLLC T VISIT MODERATE SEVERITY HOSPITAL [facility] - 6 6 Y [facility] 67622 [facility] 6 Y T VISIT 5 HOSPITAL MINUTES OFFICE 51520 [place] [facility] 6 6 [facility] GAR T VISIT TIC 15 CENTER MINUTES EMERGENCY 32129 [facility] 5 5 EMERGENCY DEPARTMEN T VISIT PHYSICIAN HIGH/URGE S NT SEVERITY HOSPITAL [facility] - 5 5 Y [facility] T OFFICE 35485 [facility] 5 5 Y T VISIT 5 HOSPITAL MINUTES OFFICE 07093 [facility] 5 5 MEDICAL JUS T VISIT SERV 15 FOUNDATIO MINUTES N OFFICE 85583 [facility] 5 5 CHIROPRAC T VISIT TIC 15 CENTER MINUTES OFFICE 58862 [facility] 5 5 MEDICAL SHEA T VISIT SERV 25 FOUNDATIO MINUTES HOSPITAL CARDINAL - 5 5 [facility] OUTPATIEN REHABILIT T ATION OFFICE 58857 CARD[facility]AL OUTPATIEN 5 5 HILL T VISIT REHABILIT 10 ATION MINUTES HOSPITAL UNIVERSIT - 5 5 Y OUTPATIEN HOSPITAL T OFFICE 62156 UNIVERSIT OUTPATIEN 5 5 Y T VISIT 5 HOSPITAL MINUTES OFFICE 87915 PARMINDER TRAN OUTPATIEN 5 5 HOSPITAL MIN T NEW 45 MEDICAL MINUTES ASSO OFFICE 20159 ALVIN CARRANZA OUTPATIEN 5 5 MEDICAL JUS T VISIT SERV 25 FOUNDATIO MINUTES N HOSPITAL CARDINAL - 5 5 HILL INPATIENT REHABILIT ATION EMERGENCY 17449 [facility] CELLAROSI DEPT 5 5 LUZ ELENA - YORBA VISIT EMERGENCY PAT HIGH PHYS SEVERITY& THREAT FUNCJ OFFICE 95508 COLE NOLANON OUTPATIEN 5 5 COL COL T NEW 20 MINUTES EMERGENCY 82976 [facility] GERONIMO ERIC DEPT 4 4 LUZ ELENA VISIT EMERGENCY HIGH PHYS SEVERITY& THREAT [facility] UN[facility] - 4 4 Y OF INPATIENT [facility] OFFICE 58325 ROSEMARIE HOUSTON OUTPATIEN 4 4 DONNA DONNA T VISIT 15 MINUTES EMERGENCY 12811 MICHELLE HO MICHELLE HO DEPT 4 4 VISIT HIGH SEVERITY& THREAT FUNCJ OFFICE 24174 ROSEMARIE HOUSTON OUTPATIEN 4 4 DONNA DONNA T VISIT 15 MINUTES EMERGENCY 29615 HEIDY MOODY CHICHI 4 4 DEPARTMEN T VISIT HIGH/URGE NT SEVERITY [facility] ST - 4 4 [facility] OUTPATIEN FT T DIVYA EMERGENCY [address] ST 4 4 WILSON DEPARTMEN FT T VISIT DIVYA MODERATE SEVERITY EMERGENCY 56097 LINDA VARGAS DEPT 3 3 VISIT HIGH SEVERITY& THREAT FUNCJ EMERGENCY 60775 JUSTIN ANDERSON 3 3 SCO SCO DEPARTMEN T VISIT HIGH/URGE NT SEVERITY EMERGENCY 69227 MARCO LARA DEPT 3 3 RYA RYA VISIT HIGH SEVERITY& THREAT [facility] [place] [address] 3 [facility] [place] [address] 3 N [facility] T HOSPITA EMERGENCY 05220 [facility] 3 3 N [facility] T VISIT HOSPITA HIGH/URGE NT SEVERITY EMERGENCY 63291 [facility] 3 3 N [facility] COMM[facility]ITY T VISIT HOSPITA HIGH/URGE NT SEVERITY [facility] [place] [address] 3 N [facility] T HOSPITA EMERGENCY 01122 DOMINGUEZ MIX 3 3 EITAN EITAN DEPARTMEN T VISIT MODERATE SEVERITY EMERGENCY 67819 CELLAROSI CELLAROSI 3 3 - YORBA - YORBA DEPARTMEN PAT PAT T VISIT HIGH/URGE NT SEVERITY [facility] [address] [place] [address] 3 N [facility] T HOSPITA EMERGENCY 84125 [place] [facility] DEPT 3 3 EMERGENCY VISIT SERVICES HIGH SEVERITY& THREAT [facility] EMERGENC[facility] 34615 [place] MIX 3 3 EMERGENCY EITAN DEPARTMEN SERVICES T VISIT MODERATE SEVERITY OFFICE 43176 [facility] 3 3 HOSP MED GRE T VISIT CTR 25 MINUTES HOSP[facility] [place] [address] 3 [facility] OFFICE 39960 [facility] 3 3 Y T VISIT 5 HOSPITAL MINUTES OFFICE 86918 [facility] HOSP MED GRE T VISIT CTR 15 MINUTES HOSPITAL UNIVERSIT - 3 3 Y OUTPATI HOSPITAL T OFFICE 16245 [facility] 3 3 Y OF WILLI T [facility] I PHY MINUTES OFFICE 74076 [facility] OUT[facility] 3 3 HOSP MED GRE T VISIT CTR 25 MINUTES HOSPITAL [facility] - 3 3 [facility] MED[facility] T C HOSPITAL ST 3 3 [facility] OFFICE 43085 [facility] OUTPATI 3 3 HOSPITAL EITAN T VISIT MEDICAL 25 C MINUTES [facility] 3 3 [facility] MEDICAL T C [facility] [place] [address] 3 [facility] T C EMERGENCY 72363 [facility]ENS DEPT 3 3 HOSPITAL VISIT MEDICAL HIGH C SEVERITY& THREAT [facility] 3 3 [facility] MEDICAL T C OFFICE 07139 [facility] OUTPATIEN 2 2 HOSP MED T NEW 45 CTR MINUTES HOSPITAL [facility]DRENS - 2 2 [facility] T C OFFICE 18310 [facility] OUTPATIEN 2 2 HOSPITAL EITAN T VISIT MEDICAL 25 C MINUTES OFFICE 72630 [facility] OUTPATIEN 2 2 HOSP MED EITAN T VISIT CTR 25 MINUTES HOSPITAL [facility]DRENS - 2 2 [facility] MEDICAL T C PERIODIC 46956 PENDELE[place] PENDELE[place] PREVENTIV 2 2 N CO N CO E MED EST [facility] CENTER 18-39 YRS OFFICE 93219 [facility] FILIPOVIC OUTPATIEN 2 2 HOSP MED H EMILY T VISIT CTR 25 MINUTES HOSPITAL [facility] - 2 2 [facility] OUTPATI MEDICAL T C OFFICE 44613 [facility] RAUL OUTPATIEN 2 2 [facility] MAR T VISIT MEDICAL 25 C MINUTES [facility] - 2 2 [facility] OUTPATI MEDICAL T C OFFICE 22373 [facility] [place] OUTPATIEN 2 2 [facility]OSP[facility] GRE T VISIT MEDICAL 40 C MINUTES HOSP[facility] - 2 2 [facility] OUTPATI MEDICAL T C OFFICE 70113 [facility] 2 2 [facility] T VISIT MEDICAL 15 C MINUTES [facility] C OFFICE 26467 [facility] INDIGO OUTPATIEN 2 2 HOSP MED H EMILY T NEW 30 CTR MINUTES EMERGENCY 58558 [facility] DE[facility] 2 2 PRIMARY VISIT CARE HIGH PHYSICANS SEVERITY& M THREAT FUNCJ EMERGENCY 53924 [facility] 2 2 PRIMARY EDW DEPARTMEN CARE T VISIT PHYSICANS HIGH/URGE M NT SEVERITY HOSPITAL [facility] - OTHER 2 2 HOSPITAL MEDICAL C OFFICE 44062 [facility] VISIT MED[facility] [address] [address] - [address] [facility] T [place] EMERGENCY 96084 [facility] DEPT 2 2 [facility] ELENA VISIT EMERGENCY HIGH PHYS SEVERITY& THREAT FUNCJ EMERGENCY 42706 [facility] 2 2 PRIMARY DEPARTMEN CARE T VISIT PHYSICANS HIGH/URGE M NT SEVERITY EMERGENCY 45202 [facility] 2 2 PRIMARY DEPARTMEN CARE T VISIT PHYSICANS MODERATE M SEVERITY OFFICE 18818 [place] [facility] 2 2 [facility] T NEW 30 TIC MINUTES CENTER EMERGENCY 26519 [facility] 2 2 PRIMARY DEPARTMEN CARE T VISIT PHYSICANS HIGH/URGE M NT SEVERITY EMERGENCY 18081 ST 2 2 [facility] DEPARTMEN FT T VISIT DIVYA HIGH/URGE NT SEVERITY EMERGENCY 69340 [facility] DEPT 2 2 VISIT HIGH SEVERITY& THREAT [facility] - 2 2 [place] OUTPATIEN FT T DIVYA EMERGENCY 92054 DIVYA DIVYA 2 2 DIANA DIANA DEPARTMEN T VISIT HIGH/URGE NT SEVERITY OFFICE 71180 [facility] 1 [facility] T VISIT MEDICAL 40 C MINUTES HOSP[facility] - OTHER 1 1 HOSPITAL MEDICAL C OFFICE 76498 [facility] YAZIGI OUTPATIEN 1 1 NAD NAD T VISIT 25 MINUTES EMERGENCY 88836 [facility] 1 1 PRIMARY KET DEPARTMEN CARE T VISIT PHYSICANS HIGH/URGE M NT SEVERITY [facility] 1 1 [facility] OUT[facility] T EMERGENCY 844[address] [facility] 1 1 [facility] DEPARTMEN T VISIT HIGH/URGE NT SEVERITY EMERGENCY 85479 [facility] S[facility] 1 1 PRIMARY PHI DEPARTMEN CARE T VISIT PHYSICANS MODERATE M SEVERITY OFFICE 66819 [facility] 1 [facility] T VISIT MEDICAL 40 C MINUTES OFFICE 71213 [facility] YAZIGI OUTPATIEN 1 1 HOSP MED NAD T VISIT CTR 25 MINUTES HOSPITAL [facility] - OTHER 1 1 [facility] - 1 1 [facility] OUTPATIEN T EMERGENCY 91584 [facility] 1 1 [facility] DEPARTMEN T VISIT LOW/MODER SEVERITY EMERGENCY 06685 [facility] 1 1 PRIMARY RAY DEPARTMEN CARE T VISIT PHYSICANS HIGH/URGE M NT SEVERITY EMERGENCY 13460 [facility] 1 1 [facility] ELENA DEPARTMEN EMERGENCY T VISIT PHYS MODERATE SEVERITY [facility] - 1 1 [facility]ITAL OUTPATIEN T [facility] - 1 1 [facility] OUTPATIEN T EMERGENCY 98569 [facility] STACK MEENU 1 1 PRIMARY DEPARTMEN CARE T VISIT PHYSICANS HIGH/URGE M NT SEVERITY EMERGENCY 16045 [facility] 1 1 [facility] DEPARTMEN T VISIT MODERATE SEVERITY EMERGENCY 70621 EMERGENCY EMERY CHICHI 0 0 CARE DEPARTMEN PHYS T VISIT [facility] HIGH/URGE NT SEVERITY OFFICE 35[address] [facility] 0 0 [facility] SHE T VISIT 25 PHYSICIAN MINUTES S EMERGENCY 48220 EMERGENCY EMERY CHICHI 0 0 CARE DEPARTMEN PHYS T VISIT [facility] HIGH/URGE NT SEVERITY OFFICE 62886 [facility] 0 0 [facility] SHE T VISIT 25 PHYSICIAN MINUTES S EMERGENCY 14478 ST [facility] 0 0 [place] ARI DEPARTMEN MED CTR T VISIT HIGH/URGE NT SEVERITY [facility]OSP[facility] ST - 0 0 [facility] OUTPATIEN T MEDICALCE NTER EMERGENCY 89392 ST 0 0 [place] DEPARTMEN T VISIT MEDICALCE MODERATE NTER SEVERITY EMERGENCY 33209 EMERGENCY VEST ANA 0 0 CARE DEPARTMEN PHYS T VISIT [facility] NT SEVERITY OFFICE [id number] [facility] [place], OUTPATIEN 0 0 [facility] C[facility] T VISIT 15 PHYSICIAN MINUTES S OFFICE [id number] [facility] [place], OUTPATIEN 0 0 [facility] C[facility] T VISIT 25 PHYSICIAN MINUTES S
--- OUTSIDE RECORDS SUMMARY | 2017-03-29 04:17 | External Medical Summary Rpt | CCD ---
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 [place] TIC 7 [facility] MANIPLTV TIC TX CENTER EXTRASPIN AL 1/> REGION THERAPEUT 91799 [facility] IC PX 1/> 7 [facility]OPRAC AREAS TIC TIC EACH 15 CENTER CENTER MIN EXERCISES APPL 00964 [facility] MODALITY 7 CHIROPRAC 1/> AREAS TIC ELEC CENTER STIMJ UNATTENDE D APPL 84972 [facility] 7 CHIROPRAC 1/> AREAS TIC TRACTION CENTER MECHANICA L [facility]IROPRAC 66302 [facility] T[facility] 7 [facility] MANIPLTV TIC TX CENTER EXTRASPIN AL 1/> REGION THERAPEUT 58146 [facility] IC PX 1/> 7 [facility] AREAS TIC EACH 15 CENTER MIN EXERCISES [facility]AC 31107 [facility] TIC 7 [facility] MANIPULAT TIC [facility] SPINAL 3-4 REGIONS APPLICATI 31459 [facility] [place] [facility] CHIROPRAC MODALITY TIC TIC 1/> AREAS CENTER CENTER HOT/COLD PACKS APPLICATI 85215 [facility] [place] 7 [facility]AC CHIROPRAC MODALITY TIC TIC 1/> AREAS CENTER CENTER HOT/COLD PACKS MANUAL 22936 [facility] THERAPY 7 CHIROPRAC TQS 1/> TIC REGIONS CENTER EACH 15 MINUTES [facility]IROP[facility]AC 29650 [facility] F[facility] TIC 7 [facility] MANIPULAT TIC [facility] SPINAL 3-4 REGIONS CHIROPRAC 57695 [facility] TIC 7 [facility] MANIPLTV TIC TX CENTER EXTRASPIN AL 1/> REGION APPL 71758 [facility] MODALITY 7 CHIROPRAC 1/> AREAS TIC TRACTION CENTER MECHANICA L APPL 98978 [facility] MOD[facility]ITY 7 CHIROPRAC CHIROPRAC 1/> AREAS TIC TIC TRACTION CENTER CENTER MECHANICA L CHIROPRAC 53373 [facility] F[facility] TIC 7 CH[facility]OPRAC MANIPLTV TIC TX CENTER EXTRASPIN AL 1/> REGION CHIROPRAC 31487 [facility] TIC 7 [facility] MANIPULAT TIC [facility] SPINAL 3-4 REGIONS MANUAL 34542 [facility] THERAPY 7 CHIROPRAC TQS 1/> TIC REGIONS CENTER EACH 15 MINUTES APPLICATI 07965 [facility]ALNAYANA FELICIANO ON 7 CH[facility]OP[facility]AC MODALITY TIC 1/> AREAS CENTER HOT/COLD PACKS APPLICATI 69386 [facility] CA ON 7 CHIROPRAC CHIROPRAC MODALITY TIC TIC 1/> AREAS CENTER CENTER HOT/COLD PACKS MANUAL 69629 [facility] J[facility]IE THERAPY 7 CHIROPRAC TQS 1/> TIC REGIONS CENTER [place] [address] [facility] FELICIANO 1/> AREAS 7 CHIROPRAC EACH 15 TIC MINUTES CENTER MASSAGE CHIROPRAC 61579 LANNY FELICIANO TIC 7 CHIROPRAC MANIPULAT TIC [facility] SPINAL 3-4 REGIONS CHIROPRAC 22553 [facility] FELICIANO TIC 7 CHIROPRAC MANIPLTV TIC TX CENTER EXTRASPIN AL 1/> REGION APPL 01537 [facility] PARKER MODALITY 7 CHIROPRAC 1/> AREAS TIC TRACTION CENTER MECHANICA L APPL 75563 [facility] FELICIANO MODALITY 7 CHIROPRAC 1/> AREAS TIC ELEC CENTER STIMJ UNATTENDE D APPL 70026 [facility] MODALITY 7 CHIROPRAC 1/> AREAS TIC ELEC CENTER STIMJ UNATTENDE D APPL 25850 [facility] MODALITY 7 CHIROPRAC 1/> AREAS TIC TRACTION CENTER MECHANICA L CHIROPRAC 20152 [facility] [place] TIC 7 CHIROPRAC MANIPLTV TIC TX CENTER EXTRASPIN AL 1/> REGION CHIROPRAC 75684 [facility] TIC 7 CH[facility]OPR[facility] MANIPULAT TIC [facility] SPINAL 3-4 REGIONS MANUAL 82809 [facility] [place] THERAPY 7 CHIROPRAC TQS 1/> TIC REGIONS CENTER EACH 15 MINUTES APPLICATI 05009 [facility] CA ON 7 CHIROPRAC CHIROPRAC MODALITY TIC TIC 1/> AREAS CENTER CENTER HOT/COLD PACKS APPLICATI 86079 [facility] FELICIANO ON 7 CHIROPRAC MODALITY TIC 1/> AREAS CENTER [place] [address] [facility] FELICIANO 1/> AREAS 7 CHIROPRAC EACH 15 TIC MINUTES CENTER MASSAGE [facility]IROPRAC 35500 [facility] TIC 7 [facility] MANIPULAT TIC [facility] SPINAL 3-4 REGIONS CHIROPRAC 85099 [facility] PARKER TIC 7 CHIROPRAC MANIPLTV TIC TX CENTER EXTRASPIN AL 1/> REGION APPL 21028 [facility] LANNY MODALITY 7 CHIROPRAC CHIROPRAC 1/> AREAS TIC TIC TRACTION CENTER CENTER MECHANICA L APPL 98246 [facility] P[facility] MODALITY 7 CHIROPRAC 1/> AREAS TIC ELEC CENTER STIMJ UNATTENDE D APPL 86738 [facility] P[facility] MODALITY 7 CHIROPRAC 1/> AREAS TIC ELEC CENTER STIMJ UNATTENDE D APPL 87842 [facility] MODALITY 7 CHIROPRAC 1/> AREAS TIC TRACTION CENTER MECHANICA L CHIROPRAC 67435 [facility] P[facility] TIC 7 CHIROPRAC MANIPLTV TIC TX CENTER EXTRASPIN AL 1/> REGION CHIROPRAC 63902 [facility] TIC 7 CHIROPRAC MANIPULAT TIC [facility] [place] [facility] SPINAL 3-[place] [address] [facility] JODIE 1/> AREAS 7 CHIROPRAC EACH 15 TIC MINUTES CENTER MASSAGE APPLICATI 25640 [facility] SENA ON 7 CHIROPRAC MODALITY TIC 1/> AREAS CENTER HOT/COLD PACKS APPLICATI 80336 [facility] PARK[facility] ON 7 CHIROPRAC MODALITY TIC 1/> AREAS CENTER [place] [address] [facility] PARKER 1/> AREAS 7 CHIROPRAC EACH 15 TIC MINUTES CENTER MASSAGE CHIROPRAC 36020 [facility] TIC 7 [facility]OPR[facility] MANIPULAT TIC [facility] SPINAL 3-4 REGIONS CHIROPRAC 44666 [facility] P[facility] TIC 7 CHIROPRAC MANIPLTV TIC TX CENTER EXTRASPIN AL 1/> REGION THERAPEUT 89673 [facility] P[facility] IC PX 1/> 7 CHIROPRAC AREAS TIC EACH 15 CENTER MIN EXERCISES APPL 96000 [facility] MODALITY 7 CHIROPRAC 1/> AREAS TIC TRACTION CENTER MECHANICA L APPL 49281 [facility] JODIE MODALITY 7 CHIROPRAC 1/> AREAS TIC ELEC CENTER STIMJ UNATTENDE D APPL 47236 [facility] LUKING MODALITY 7 CHIROPRAC 1/> AREAS TIC ELEC CENTER STIMJ UNATTENDE D SELF-CARE 73280 [facility] LU /HOME 7 CHIROPRAC MGMT TIC TRAINING CENTER EACH 15 MINUTES APPL 52480 [facility] LUKING MODALITY 7 CHIROPRAC 1/> AREAS TIC TRACTION CENTER MECHANICA L CHIROPRAC 05476 [facility] L[place] TIC 7 CHIROPRAC MANIPLTV TIC TX CENTER EXTRASPIN AL 1/> REGION CHIROPRAC 88152 [facility] PH[place] TIC 7 CHIROPR[facility] MANIPULAT TIC [facility] [place] [facility] SPINAL 3-[place] [address] [facility] LUKING 1/> AREAS 7 CHIROPRAC EACH 15 TIC MINUTES CENTER MASSAGE APPLICATI 86941 [facility] PHILLIPS ON 7 CHIROPRAC MODALITY TIC 1/> AREAS CENTER HOT/COLD PACKS APPLICATI 43214 [facility] FELICIANO ON 7 CHIROPRAC MODALITY TIC 1/> AREAS [place]ENTER [place] [address] [facility] JODIE 1/> AREAS 7 CHIROPRAC EACH 15 TIC MINUTES CENTER MASSAGE CHIROPRAC 69932 [facility] TIC 7 CH[facility]OPR[facility] MANIPULAT TIC [facility] SPINAL 3-4 REGIONS CHIROPRAC 93289 [facility] PARKER TIC 7 CHIROPRAC MANIPLTV TIC TX CENTER EXTRASPIN AL 1/> REGION SELF-CARE 26975 [facility] JODIE /HOME 7 CHIROPRAC MGMT TIC TRAINING CENTER EACH 15 MINUTES APPL 25541 [facility] J[facility] MODALITY 7 CHIROPRAC 1/> AREAS TIC ELEC CENTER STIMJ UNATTENDE D NONEMERGE A0100 LKLP CAC BENNETTS NCY 6 INC TRANSPORT TRANSPORT REGION 9 ATION CO ATION; L TAXI CHIROPRAC 88753 [facility] BAÑUELOS TIC 6 CHIROPR[facility] MANIPULAT TIC [facility] SPINAL 3-4 REGIONS CHIROPRAC 86554 [facility] LARSEN TIC 6 CHIROPRAC MANIPLTV TIC TX CENTER EXTRASPIN AL 1/> REGION THERAPEUT 30705 [facility] BAÑUELOS IC PX 1/> 6 CHIROPRAC AREAS TIC EACH 15 CENTER MIN EXERCISES THERAPEUT 39427 [facility] BAÑUELOS IC PX 1/> 6 CHIROPRAC AREAS TIC EACH 15 CENTER MIN EXERCISES CHIROPRAC 93673 [facility] BAÑUELOS TIC 6 CHIROPRAC MANIPLTV TIC TX CENTER EXTRASPIN AL 1/> REGION CHIROPRAC 94991 [facility] BAÑUELOS TIC 6 CHIROPRAC MANIPULAT TIC [facility] SPINAL 3-4 REGIONS APPL 81040 [facility] CA MODALITY 6 CHIROPRAC CHIROPRAC 1/> AREAS TIC TIC ELEC CENTER [place] [address] THE THE PARATHORM [address] [place] [address] COMPREHEN 15598 THE THE SIVE [address] [place] [address] PANEL COLLECTIO 07217 THE THE N VENOUS [address] [place] [address] [place] [address] THE THE LIPASE [address] [place] [address] [place] [address] THE THE AMYLASE [address] [place] [address] [place] [address] THE THE FREE [address] [place] [address] THYROXINE [facility] [place] [address] THE THE THYROID [address] [place] [address] NG HORMONE TSH BLOOD 26645 THE THE COUNT [address] [place] [address] AUTOMATED HEMOGLOBI 03898 THE THE N 6 [facility] YVETTE A1C CALCIUM 61763 THE THE IONIZED [address] [place] [address] CHIROPRAC 38754 LAN[facility] BAÑUELOS TIC 6 CHIROPR[facility] MANIPULAT TIC [facility] SPINAL 3-4 REGIONS CHIROPRAC 56259 LAN[facility] BAÑUELOS TIC 6 CHIROPRAC MANIPLTV TIC TX CENTER EXTRASPIN AL 1/> REGION THERAPEUT 60139 LAN[facility] BAÑUELOS IC PX 1/> 6 CHIROPRAC AREAS TIC EACH 15 CENTER MIN EXERCISES APPL 51123 [facility] MODALITY 6 CHIROPRAC CHIROPRAC 1/> AREAS TIC TIC TRACTION CENTER CENTER MECHANICA L APPL 82669 [facility] 6 CHIROPRAC CHIROPRAC 1/> AREAS TIC TIC TRACTION CENTER CENTER MECHANICA L THERAPEUT 73834 [facility] BA[facility]UELOS IC PX 1/> 6 CHIROPRAC AREAS TIC EACH 15 CENTER MIN EXERCISES CHIROPRAC 32152 [facility] BA[facility]UELOS TIC 6 CHIROPRAC MANIPLTV TIC TX CENTER EXTRASPIN AL 1/> REGION CHIROPRAC 59250 [facility] BA[facility]UELOS TIC 6 CHIROPRAC MANIPULAT TIC [facility] SPINAL 3-4 REGIONS CHIROPRAC 89486 [facility] BA[facility]OS TIC 6 CHIROPRAC MANIPULAT TIC [facility] SPINAL 3-4 REGIONS THERAPEUT 27995 [facility] BA[facility]UELOS IC PX 1/> 6 CHIROPRAC AREAS TIC EACH 15 CENTER MIN EXERCISES CHIROPRAC 95769 [facility] BA[facility] TIC 6 CHIROPRAC MANIPLTV TIC TX CENTER EXTRASPIN AL 1/> REGION APPL 22746 [facility] MODALITY 6 CHIROPRAC CHIROPRAC 1/> AREAS TIC TIC TRACTION CENTER CENTER MECHANICA L APPL 96682 [facility] BA[facility]UELOS MODALITY 6 CHIROPRAC 1/> AREAS TIC ELEC CENTER STIMJ UNATTENDE D SELF-CARE 06509 [facility] BA[facility] /HOME 6 CHIROPRAC MGMT TIC TRAINING CENTER EACH 15 MINUTES THERAPEUT 32413 [facility] IC PX 1/> 6 CHIROPRAC CHIROPRAC AREAS TIC TIC EACH 15 CENTER CENTER MIN EXERCISES CHIROPRAC 64493 [facility] BA[facility] TIC 6 CHIROPRAC MANIPLTV TIC TX CENTER EXTRASPIN AL 1/> REGION CHIROPRAC 16998 [facility] BA[facility] TIC 6 CHIROPRAC MANIPULAT TIC [facility] SPINAL 3-4 REGIONS SURGICAL L3260 ADVANCED ADVANCED BOOT/SHOE 6 TECHNOLOG TECHNOLOG EACH IES INC IES INC RADIOLOGI 23886 [place] C 6 MEDICAL EXAMINATI IMAGING ON FOOT 2 ASS VIEWS APPL 57784 [facility]NY BERNSTEIN 6 CHIROPRAC CHIROPRAC 1/> AREAS TIC TIC ELEC CENTER CENTER STIMJ UNATTENDE D CHIROPRAC 84948 [facility] BA[facility] TIC 6 CHIROPR[facility] MANIPULAT TIC [facility] SPINAL 3-4 REGIONS CHIROPRAC 62348 [facility] BA[facility] TIC 6 CHIROPRAC MANIPLTV TIC TX CENTER EXTRASPIN AL 1/> REGION THERAPEUT 68300 [facility] EDDA IC PX 1/> 6 CHIROPRAC AREAS TIC EACH 15 CENTER MIN EXERCISES THERAPEUT 89402 [facility] [place] IC PX 1/> 6 CHIROPRAC CHIROPRAC AREAS TIC TIC EACH 15 CENTER CENTER MIN EXERCISES CHIROPRAC 30481 [facility] EDDA TIC 6 CHIROPRAC GAR MANIPLTV TIC TX CENTER EXTRASPIN AL 1/> REGION CHIROPRAC 24906 [facility] EDDA TIC 6 CHIROPRAC GAR MANIPULAT TIC [facility] SPINAL 3-4 REGIONS CHIROPRAC 36622 [facility] EDDA TIC 6 CHIROPRAC MANIPLTV TIC TX CENTER EXTRASPIN AL 1/> REGION THERAPEUT 37559 [facility] EDDA IC PX 1/> 6 CHIROPRAC AREAS TIC EACH 15 CENTER MIN EXERCISES CHIROPRAC 78519 [facility] EDDA TIC 6 CHIROPRAC MANIPULAT TIC [facility] SPINAL 3-4 REGIONS CHIROPRAC 86087 [facility] EDDA TIC 6 CHIROPRAC MANIPULAT TIC [facility] SPINAL 3-4 REGIONS THERAPEUT 98219 [facility] [place] IC PX 1/> 6 [facility] AREAS TIC EACH 15 CENTER MIN EXERCISES CHIROPRAC 21165 [facility] TIC 6 CHIROPRAC CHIROPRAC MANIPLTV TIC TIC TX CENTER CENTER EXTRASPIN AL 1/> REGION APPL 77179 [facility] EDDA MODALITY 6 CHIROPRAC 1/> AREAS TIC TRACTION CENTER MECHANICA L CHIROPRAC 20408 [facility] EDDA TIC 6 CHIROPRAC MANIPLTV TIC TX CENTER EXTRASPIN AL 1/> REGION THERAPEUT 24747 [facility] IC PX 1/> 6 CHIROPRAC CHIROPRAC AREAS TIC TIC EACH 15 CENTER CENTER MIN EXERCISES CHIROPRAC 28517 [facility] EDDA TIC 6 CHIROPR[facility] MANIPULAT TIC [facility] SPINAL 3-4 REGIONS BASIC 35332 [facility] METABOLIC 6 Y Y PANEL [facility] CALCIUM TOTAL THROMBOPL 42438 [facility] ASTIN 6 Y Y TIME [facility] PARTIAL PLASMA/WH OLE BLOOD COLLECTIO 43513 [facility] N VENOUS 6 Y Y BLOOD [facility] VENIPUNCT URE PROTHROMB 41826 [facility] IN TIME 6 Y Y [facility] BLOOD 30904 [facility] COUNT 6 Y Y COMPLETE [facility] AUTOMATED MANUAL 87550 [facility] THERAPY 6 CHIROPRAC CHIROPRAC TQS 1/> TIC TIC REGIONS CENTER CENTER EACH 15 MINUTES CHIROPRAC 24901 [facility] EDDA TIC 6 CHIROPR[facility] GAR MANIPLTV TIC TX CENTER EXTRASPIN AL 1/> REGION CHIROPRAC 15157 [facility] EDDA TIC 6 [facility]OPR[facility] GAR MANIPULAT TIC [facility] SPINAL 3-4 REGIONS THERAPEUT 63702 [facility] IC PX 1/> 6 CHIROPRAC CHIROPRAC AREAS TIC TIC EACH 15 CENTER CENTER MIN EXERCISES CHIROPRAC 89990 [facility] EDDA TIC 6 CHIROPRAC MANIPLTV TIC TX CENTER EXTRASPIN AL 1/> REGION MANUAL 36888 [facility] EDDA THERAPY 6 CHIROPRAC TQS 1/> TIC REGIONS CENTER EACH 15 MINUTES CHIROPRAC 03402 [facility] EDDA TIC 6 CHIROPR[facility] MANIPULAT TIC [facility] SPINAL 1-2 REGIONS THERAPEUT 53494 [facility] IC PX 1/> 6 CHIROPRAC CHIROPRAC AREAS TIC TIC EACH 15 CENTER CENTER MIN EXERCISES CHIROPRAC 01033 [facility] BAÑUELOS TIC 6 CHIROPRAC GAR MANIPLTV TIC TX CENTER EXTRASPIN AL 1/> REGION CHIROPRAC 10653 [facility] BAÑUELOS TIC 6 CHIROPRAC GAR MANIPULAT TIC [facility] SPINAL 3-4 REGIONS CHIROPRAC 34884 [facility] BAÑUELOS TIC 6 CHIROPRAC MANIPLTV TIC TX CENTER EXTRASPIN AL 1/> REGION THERAPEUT 44894 [facility] BAÑUELOS IC PX 1/> 6 CHIROPRAC AREAS TIC EACH 15 CENTER MIN EXERCISES CHIROPRAC 88241 [facility] BAÑUELOS TIC 6 CHIROPRAC MANIPULAT TIC [facility] SPINAL 3-4 REGIONS APPL 20348 [facility] MODALITY 6 CHIROPRAC CHIROPRAC 1/> AREAS TIC TIC TRACTION CENTER CENTER MECHANICA L APPL 29057 [facility] [place] MODALITY 6 CHIROPRAC CHIROPRAC 1/> AREAS TIC TIC TRACTION CENTER CENTER MECHANICA L THERAPEUT 05657 [facility] BA[facility]ELOS IC PX 1/> 6 CHIROPRAC GAR AREAS TIC EACH 15 CENTER MIN EXERCISES CHIROPRAC 26733 [facility] BAÑUELOS TIC 6 CHIROPRAC GAR MANIPLTV TIC TX CENTER EXTRASPIN AL 1/> REGION CHIROPRAC 19905 LAN[facility] BAÑUELOS TIC 6 CHIROPRAC GAR MANIPULAT TIC B[facility] CENTER SPINAL 3-4 REGIONS CHIROPRAC 28302 [facility] BAÑUELOS TIC 6 CHIROPRAC GAR MANIPLTV TIC TX CENTER EXTRASPIN AL 1/> REGION THERAPEUT 82938 [facility] IC PX 1/> 6 CHIROPRAC GAR AREAS TIC EACH 15 CENTER MIN EXERCISES CHIROPRAC 75355 [facility] BAÑUELOS TIC 6 CHIROPRAC GAR MANIPULAT TIC [facility]ENTER SPINAL 3-4 REGIONS APPL 62904 [facility] ASH[facility] MODALITY 6 CHIROPRAC CHIROPRAC 1/> AREAS TIC TIC TRACTION CENTER CENTER MECHANICA L CHIROPRAC 82482 [facility] BA[facility]UEL[facility] TIC 6 CHIROPRAC MANIPULAT TIC [facility] CENTER SPINAL 3-4 REGIONS MANUAL 00362 [facility] BA[facility] THERAPY 6 CHIROPRAC TQS 1/> TIC REGIONS CENTER EACH 15 MINUTES THERAPEUT 49349 [facility] [place] IC PX 1/> 6 CHIROPRAC CHIROPRAC AREAS TIC TIC EACH 15 CENTER CENTER MIN EXERCISES CHIROPRAC 23302 [facility] BAÑUELOS TIC 6 CHIROPRAC MANIPLTV TIC TX CENTER EXTRASPIN AL 1/> REGION CHIROPRAC 69484 [facility] BAÑUELOS TIC 6 CHIROPRAC MANIPLTV TIC TX CENTER EXTRASPIN AL 1/> REGION THERAPEUT 59459 [facility] CA IC PX 1/> 6 CHIROPRAC CHIROPRAC AREAS TIC TIC EACH 15 CENTER CENTER MIN EXERCISES MANUAL 43783 [facility] EDDA THERAPY 6 CHIROPRAC TQS 1/> TIC REGIONS CENTER EACH 15 MINUTES CHIROPRAC 04272 [facility] BAÑUELOS TIC 6 CHIROPRAC MANIPULAT TIC [facility] CENTER SPINAL 3-4 REGIONS MANUAL 51385 [facility] THERAPY 6 CHIROPRAC TQS 1/> TIC REGIONS CENTER EACH 15 MINUTES CHIROPRAC 24989 [facility] BAÑUELOS TIC 6 CHIROPRAC MANIPULAT TIC B[facility] CENTER SPINAL 3-4 REGIONS CHIROPRAC 89725 [facility] BAÑUELOS TIC 6 CHIROPRAC MANIPLTV TIC TX CENTER EXTRASPIN AL 1/> REGION THERAPEUT 88494 [facility] [place] IC PX 1/> 6 CHIROPRAC CHIROPRAC AREAS TIC TIC EACH 15 CENTER CENTER MIN EXERCISES THERAPEUT 29420 [facility] [place] IC PX 1/> 6 CHIROPRAC CHIROPRAC AREAS TIC TIC EACH 15 CENTER CENTER MIN EXERCISES CHIROPRAC 54445 [facility] TIC 6 CHIROPRAC MANIPLTV TIC TX CENTER EXTRASPIN AL 1/> REGION CHIROPRAC 28892 [facility] BA[facility]OS TIC 6 [facility] MANIPULAT TIC [facility] SPINAL 3-4 REGIONS MANUAL 84082 [facility]ER[facility] 6 [facility] TQS 1/> TIC REGIONS CENTER EACH 15 MINUTES MANUAL 14024 [facility]ERAP[facility] 6 [facility] GAR TQS 1/> TIC REGIONS CENTER EACH 15 MINUTES CHIROP[facility]AC 39339 LAN[facility] BAÑUELOS TIC 6 [facility] GAR MANIPLTV TIC TX CENTER EXTRASPIN AL 1/> REGION THERAPEUT 61015 [facility] P[facility] 1/> 6 [facility] AREAS TIC TIC EACH 15 CENTER CENTER MIN EXERCISES CHIROPRAC 40477 [facility] BAÑUELOS TIC 6 [facility] GAR MANIPULAT TIC [facility] SPINAL 3-4 REGIONS THERAPEUT 04803 [facility] PX 1/> 6 [facility] AREAS TIC TIC EACH 15 CENTER CENTER MIN EXERCISES CHIROPRAC 90323 LAN[facility] BAÑUELOS TIC 6 [facility] MANIPLTV TIC TX CENTER EXTRASPIN AL 1/> REGION MANUAL 56715 [facility] THERAP[facility] 6 CHIROP[facility] TQS 1/> TIC REGIONS CENTER EACH 15 MINUTES CHIROP[facility]AC 28867 [facility] TIC 6 [facility] MANIPULAT TIC [facility] SPINAL 1-2 REGIONS CHIROPRAC 15236 LAN[facility] BAÑUELOS TIC 6 [facility] GAR MANIPLTV TIC TX CENTER EXTRASPIN AL 1/> REGION CHIROPRAC 06512 [facility] BAÑUELOS TIC 6 [facility] GAR MANIPULAT TIC [facility] SPINAL 3-4 REGIONS CHIROPRAC 43120 [facility] 6 [facility] CH[facility]OP[facility] MANIPULAT TIC TIC [facility] CENTER SPINAL 3-4 REGIONS CHIROPRAC 02837 [facility] BAÑUELOS TIC 6 [facility] GAR MANIPLTV TIC TX CENTER EXTRASPIN AL 1/> REGION CHIROPRAC 30094 [facility]DA TIC 5 [facility] GAR MANIPULAT TIC [facility] SPINAL 1-2 REGIONS CHIROPRAC 89765 [facility] EDDA TIC 5 [facility] GAR MANIPULAT TIC [facility] SPINAL 1-2 REGIONS CHIROPRAC 29720 [facility] BAÑUELOS TIC 5 [facility] GAR MANIPLTV TIC TX CENTER EXTRASPIN AL 1/> REGION THERAPEUT 83674 [facility] IC PX 1/> 5 [facility] GAR AREAS TIC EACH 15 CENTER MIN EXERCISES THERAPEUT 33777 [facility] IC PX 1/> 5 [facility] GAR AREAS TIC EACH 15 CENTER MIN EXERCISES CHIROPRAC 51024 [facility] 5 [facility] CHIROPRAC MANIPLTV TIC TIC TX CENTER CENTER EXTRASPIN AL 1/> REGION CHIROPRAC 76894 [facility] 5 [facility]IROP[facility] MANIPULAT TIC TIC [facility] CENTER SPINAL 1-2 REGIONS CHIROPRAC 36902 [facility] TIC 5 [facility] GAR MANIPLTV TIC TX CENTER EXTRASPIN AL 1/> REGION CHIROPRAC 55542 [facility] TIC 5 [facility] GAR MANIPULAT TIC [facility] SPINAL 3-4 REGIONS RADEX 89833 RADIOLOGY BRANDSER FOOT 5 SHEA COMPLETE ASSOCIATE MINIMUM 3 S OF NOTH VIEWS [facility]OP[facility]AC 15856 [facility] MANIPULAT TIC TIC [facility] CENTER SPINAL 1-2 REGIONS CHIROPRAC 08331 [facility] TIC 5 [facility] GAR MANIPLTV TIC TX CENTER EXTRASPIN AL 1/> REGION THERAPEUT 99467 [facility] IC PX 1/> 5 [facility] GAR AREAS TIC EACH 15 CENTER MIN EXERCISES THERAPEUT 00333 [facility] IC PX 1/> 5 [facility] GAR AREAS TIC EACH 15 CENTER MIN EXERCISES CHIROPRAC 15522 [facility] TIC 5 [facility] GAR MANIPLTV TIC TX CENTER EXTRASPIN AL 1/> REGION CHIROPRAC 16060 [facility] TIC 5 [facility] GAR MANIPULAT TIC [facility] SPINAL 1-2 REGIONS CHIROPRAC 56848 [facility] CH[facility]OP[facility] MANIPULAT TIC TIC [facility] CENTER SPINAL 1-2 REGIONS CHIROPRAC 59057 [facility] TIC 5 [facility] GAR MANIPLTV TIC TX CENTER EXTRASPIN AL 1/> REGION THERAPEUT 60865 [facility] IC PX 1/> 5 [facility] TIC EACH 15 CENTER MIN EXERCISES THERAPEUT 75864 [facility] IC PX 1/> 5 [facility] GAR AREAS TIC EACH 15 CENTER MIN EXERCISES CHIROPRAC 78596 [facility] 5 [facility] CHIROP[facility] MANIPLTV TIC TIC TX CENTER CENTER EXTRASPIN AL 1/> REGION CHIROPRAC 54413 [facility] 5 [facility] MANIPULAT TIC TIC [facility] C[facility] SPINAL 1-2 REGIONS CHIROPRAC 18814 [facility] 5 [facility] MANIPULAT TIC TIC [facility] CENTER SPINAL 1-2 REGIONS CHIROPRAC 84046 [facility] CH[facility]OP[facility] MANIPLTV TIC TIC TX CENTER CENTER EXTRASPIN AL 1/> REGION CHIROPRAC 87764 [facility] [facility]ELOS TIC 5 CH[facility]OP[facility] GAR MANIPLTV TIC TX CENTER EXTRASPIN AL 1/> REGION [facility] 49424 [facility] CH[facility]OP[facility] GAR MANIPULAT TIC BEN TX CENTER SPINAL 1-2 [facility] CHIROPRAC 04922 [facility] 5 CHIROPRAC GAR MANIPULAT TIC BEN [place] CENTER SPINAL 1-2 [facility] CHIROPRAC 09581 [facility] 5 CHIROPRAC GAR MANIPLTV TIC TX CENTER EXTRASPIN AL 1/> REGION CHIROPRAC 83923 [facility] 5 CHIROPRAC GAR MANIPLTV TIC TX CENTER EXTRASPIN AL 1/> REGION CHIROPRAC 10434 [facility] 5 CHIROPRAC GAR MANIPULAT TIC BEN TX CENTER SPINAL 1-2 REG[facility] CHIROPRAC 57338 [facility] 5 CHIROPRAC GAR MANIPULAT TIC BEN TX CENTER SPINAL 1-2 REG[facility] CHIROPRAC 89587 [facility] ED[facility] 5 CHIROPRAC GAR MANIPLTV TIC TX CENTER EXTRASPIN AL 1/> REGION THERAPEUT 55251 LANNY BAÑUELOS IC PX 1/> 5 CHIROPRAC GAR AREAS TIC EACH 15 CENTER MIN EXERCISES CHIROPRAC 21165 [facility] BAÑUELOS TIC 5 CHIROPRAC GAR MANIPLTV TIC TX CENTER EXTRASPIN AL 1/> REGION CHIROPRAC 66726 LAN[facility] BAÑUELOS TIC 5 CHIROPRAC GAR MANIPULAT TIC BEN TX CENTER SPINAL 1-2 REGIONS THERAPEUT 66024 LANNY BAÑUELOS IC PX 1/> 5 CHIROPRAC GAR AREAS TIC EACH 15 CENTER MIN EXERCISES THERAPEUT 72041 LANNY BAÑUELOS IC PX 1/> 5 CHIROPRAC GAR AREAS TIC EACH 15 CENTER MIN EXERCISES CHIROPRAC 87598 LANNY BAÑUELOS TIC 5 CHIROPRAC GAR MANIPULAT TIC BEN TX CENTER SPINAL 1-2 REGIONS CHIROPRAC 04424 [facility] BAÑUELOS TIC 5 CHIROPRAC GAR MANIPLTV TIC TX CENTER EXTRASPIN AL 1/> REGION CHIROPRAC 23458 LANNY BAÑUELOS TIC 5 CHIROPRAC GAR MANIPLTV TIC TX CENTER EXTRASPIN AL 1/> REGION CHIROPRAC 46553 LANNY BAÑUELOS TIC 5 CHIROPRAC GAR MANIPULAT TIC BEN TX CENTER SPINAL 1-2 REGIONS THERAPEUT 98952 LANNY BAÑUELOS IC PX 1/> 5 CHIROPRAC GAR AREAS TIC EACH 15 CENTER MIN EXERCISES CHIROPRAC 07818 [facility] EDDA TIC 5 CHIROPRAC GAR MANIPLTV TIC TX CENTER EXTRASPIN AL 1/> REGION CHIROPRAC 35760 LANNY EDDA TIC 5 CHIROPRAC GAR MANIPULAT TIC BEN TX CENTER SPINAL 1-2 REGIONS CHIROPRAC 24041 LANNY CA TIC 5 CHIROPRAC CHIROPRAC MANIPULAT TIC TIC BEN TX CENTER CENTER SPINAL 1-2 REGIONS CHIROPRAC 24280 KURTISNAYANA EDDA TIC 5 CHIROPRAC GAR MANIPLTV TIC TX CENTER EXTRASPIN AL 1/> REGION CHIROPRAC 91579 LANNY BAÑUELOS TIC 5 CHIROPRAC GAR MANIPULAT TIC BEN TX CENTER SPINAL 3-4 REGIONS CHIROPRAC 92825 LANNY BAÑUELOS TIC 5 CHIROPRAC GAR MANIPULAT TIC BEN TX CENTER SPINAL 1-2 [facility] CHIROPRAC 33711 LANNY BAÑUELOS TIC 5 CHIROPRAC GAR MANIPULAT TIC BEN TX CENTER SPINAL 1-2 [facility] RADEX 20867 THALIA CORTEZ KIMBERLEY FOOT 5 MEDICAL COMPLETE IMAGING MINIMUM 3 ASS VIEWS CRTCHS E0114 ADVANCED ADVANCED UNDARM 5 TECHNOLOG TECHNOLOG OTH THAN IES INC IES INC WOOD PAIR PAD TIP&HNDGR IP CHIROPRAC 38527 LANNY BAÑUELOS TIC 5 CHIROPRAC GAR MANIPULAT TIC [facility] SPINAL 1-[address] [place] [address] LUI FINLEY HEAD/BRAI 5 NAL N W/O RADIOLOGY CONTRAST INC. MATERIAL RADIOLOGI 26769 LUI Fischer 5 NAL ADA EXAMINATI RADIOLOGY ON CHEST INC. SINGLE VIEW FRONTAL INITIAL 75740 [place] MANCIA INPATIENT 5 MEDICAL L CONSULT SERV NEW/ESTAB FOUNDATIO PT 80 N MIN UNLISTED 76025 [place] C[place] PROCEDURE 5 MEDICAL JUS NERVOUS SERV SYSTEM FOUNDATIO N ANESTHESI 39662 [place] A 5 MEDICAL ZOH INTRACRAN SERVICES IAL VASCULAR PROCEDURE ARTL 89221 [place] CATHJ/CAN 5 MEDICAL ZOH NULJ SERVICES MNTR/GERMAN SFUSION SPX PRQ MICROSURG 09351 [place] TQS REQ 5 MEDICAL JUS USE SERV OPERATING FOUNDATIO N MICROSCOP E CHIROPRAC 08017 COLE DOWNINGESON TIC 5 COL COL MANIPULAT BEN TX SPINAL 1-2 REGIONS APPL 32181 COLE NOLANON MODALITY 5 COL COL 1/> AREAS ELEC STIMJ UNATTENDE D APPL 12556 COLE NOL[place]ON MODALITY 5 COL COL 1/> AREAS TRACTION MECHANICA L ECG 63555 [place] BAY[place]E CHI ROUTINE 5 MEDICAL ECG SERV W/LEAST FOUNDATIO 12 LDS N I&R ONLY HOSPITAL 11363 [facility] 5 MEDICAL SHEA DAY SERV MANAGEMEN FOUNDATIO T 30 N MIN/< CANE E0105 PATIENT PATIENT QUAD/3-PA 5 AIDS INC AIDS INC JACIEL ALL MATL ADJUSTBL/ FIX W/TIPS ANKLE L1930 PATIENT PATIENT FOOT 5 AIDS INC AIDS INC ORTHOTIC PLASTIC/O TH MATL PREFAB SBSQ 53533 [place] [address] MEDICAL NAN CARE/DAY SERV 25 FOUNDATIO MINUTES N SBSQ 20232 [place] [address] MEDICAL SHEA CARE/DAY SERV 35 FOUNDATIO MINUTES N SBSQ 65018 [place] [address] MEDICAL SARAH CARE/DAY SERV 25 FOUNDATIO MINUTES N SBSQ 38252 [place] [address] MEDICAL SARAH CARE/DAY SERV 25 FOUNDATIO MINUTES N SBSQ 99529 [place] [address] MEDICAL SARAH CARE/DAY SERV 25 FOUNDATIO MINUTES N SBSQ 14818 [place] [address] MEDICAL SHEA CARE/DAY SERV 25 FOUNDATIO MINUTES N SBSQ 09739 [place] [address] MEDICAL SHEA CARE/DAY SERV 25 FOUNDATIO MINUTES N RADIOLOGI 06585 [facility] [address] RADIOLOGY III ROMARIO EXAMINATI ON CHEST SINGLE VIEW [facility] [address] [place] [address] MEDICAL JOHN DAY SERV MANAGEMEN FOUNDATIO T 30 N MIN/< INITIAL 29780 [place] [address] MEDICAL SHEA CARE/DAY SERV 70 FOUNDATIO MINUTES N SBSQ 69026 [place] [address] MEDICAL JOHN CARE/DAY SERV 25 FOUNDATIO MINUTES N SBSQ 00532 [facility] 5 MEDICAL CARE/DAY SERV 35 FOUNDATIO MINUTES N SLCTV 15750 [place] [facility] CATH 5 MEDICAL ABD CAROTID/I SERV NNOM ART FOUNDATIO ANGIO N INTRCRANL ART SLCTV 50841 [facility] CATH 5 MEDICAL ABD VERTEBRAL SERV ART FOUNDATIO ANGIO N VERTEBRAL ARTERY SLCTV 38924 [facility] CATH 5 MEDICAL ABD XTRNL SERV CAROTID FOUNDATIO ANGIO N XTRNL CAROTD CIRC SLCTV 78804 [place] ALHAJERI CATH 5 MEDICAL ABD INTRNL SERV CAROTID [place]OUNDAT[place] [address] [place] RASLAU ANGIOGRAP 5 MEDICAL FLA HY NECK SERV W/CONTRAS FOUNDAT[place] T/[place] [address] [place] SETH KWA ANGIOGRAP 5 MEDICAL HY HEAD SERV W/CONTRAS FOUNDATIO T/NONCONT N RAST ECG 84084 [place] BAY[place] CHI ROUTINE 5 MEDICAL ECG SERV W/LEAST FOUNDATIO 12 LDS N I&R ONLY HEMOGLOBI 13662 UNIVERSIT ERICKA N 5 Y OF EDER FRACTJ/QU [place] [address] [place] RASLAU HEAD/BRAI 5 MEDICAL FLA N W/O SERV CONTRAST FOUNDATIO MATERIAL N MRI BRAIN 43700 [place] ESCOTT BRAIN 5 MEDICAL EDW STEM W/O SERV W/CONTRAS FOUNDATIO T N MATERIAL RADIOLOGI 64780 [place] KOLTON C 5 MEDICAL EITAN EXAMINATI SERV ON CHEST FOUNDATIO SINGLE N VIEW FRONTAL GROUND A0425 [facility] MILEAGE 5 Ada-ISHAN WHITMORE PER CO EMS CO EMS STATUTE MILE AMB A0427 [facility] SERVICE 5 Ada-ISHAN WHITMORE ALS CO EMS CO EMS EMERGENCY TRANSPORT LEVEL 1 CHIROPRAC 18086 COLE COLE TIC 5 COL COL MANIPULAT BEN TX SPINAL 3-4 REGIONS CHIROPRAC 35701 COLE COLE TIC 5 COL COL MANIPLTV TX EXTRASPIN AL 1/> REGION RADEX 07074 COLE COLE SPINE 5 COL COL LUMBOSACR AL 2/3 VIEWS APPL 26385 COLE DOWNINGESON MODALITY 5 COL COL 1/> AREAS TRACTION MECHANICA L APPL 58043 CO[facility] [place] MODALITY 5 COL COL 1/> [place] [address] [facility]TR[place] SCALF JOHN ABDOMEN & 4 RADIOLOGY PELVIS W/O CONTRAST MATERIAL BLOOD 82324 [facility] PERIPHERA L INTERP PHYS W/WRIT REPORT ECG 12884 [place] BAYLEE CHI ROUTINE 4 MEDICAL ECG SERV W/LEAST FOUNDATIO 12 LDS N I&R ONLY GROUND A0425 BOB BOB MILEAGE 4 CO CO PER AMBULANCE [place] [address] THALIA COLLIERUTCHER HEAD/BRAI 4 MEDICAL ROYER N W/O IMAGING CONTRAST ASS MATERIAL AMB A0427 BOB BOB SERVICE 4 CO CO ALS AMBULANCE AMBULANCE EMERGENCY TAXIN TAXIN TRANSPORT LEVEL 1 [place] [address] ROSEMARIE HOUSTON 1/> AREAS 4 DONNA DONNA EACH 15 MINUTES MASSAGE CHIROPRAC 36696 ROSEMARIE HOUSTON TIC 4 DONNA DONNA MANIPULAT BEN TX SPINAL 3-4 [facility] 09850 [facility] 4 [facility] MEDICINE MANAGEMEN UFPA T 30 MIN/< INITIAL 35852 [facility] NAHUM INPATIENT 4 Medicine JR. KIMBERLEY CONSULT NEW/ESTAB PT 55 MIN INITIAL 60405 [facility] SHAINA INPATIENT 4 Medicine DAM SRI CONSULT NEW/ESTAB PT 80 MIN INITIAL [address]/[facility] MEDICINE 70 UFPA MINUTES RADIOLOGI 97756 JOSE DIXON C EXAM 4 Radiologi LUCIANO CHEST 2 kristen VIEWS Associate FRONTAL&[place] [address] MADHU DIXON ABDOMEN & 4 Radiologi LUCIANO PELVIS kristen W/O Associate CONTRAST s MATERIAL CHIROPRAC 40650 ROSEMARIE HOUSTON TIC 4 DONNA DONNA MANIPULAT BEN [place] SPINAL 3-[place] [address] ROSEMARIE HOUSTON 1/> AREAS 4 DONNA DONNA EACH 15 MINUTES MASSAGE CHIROPRAC 37127 ROSEMARIE HOUSTON TIC 4 DONNA ODNNA MANIPULAT BEN [place] SPINAL 3-4 [facility] CHIROPRAC 81777 ROSEMARIE HOUSTON TIC 4 DONNA DONNA MANIPULAT BEN [place] SPINAL 3-4 [facility]IONS THERAPEUT 12929 ROSEMARIE HOUSTON IC PX 1/> 4 DONNA DONNA AREAS EACH 15 MIN EXERCISES HOSPITAL 26053 [facility] 4 EDW EDW DAY MANAGEMEN T 30 MIN/< SBSQ 86003 [facility] 4 EDW EDW CARE/DAY 25 MINUTES SBSQ 27699 [facility] 4 EDW EDW CARE/DAY 25 MINUTES AMBULANCE A0429 BOB BOB SERVICE 4 CO CO BLS AMBULANCE AMBULANCE EMERGENCY TAXIN TAXIN TRANSPORT GROUND A0425 BOB BOB MILEAGE 4 CO CO PER AMBULANCE AMBULANCE STATUTE TAXIN TAXIN MILE INITIAL 02291 [facility] 4 EDW EDW CARE/DAY 50 MINUTES ECG 24113 BROCK BROCK ROUTINE 4 GAR GAR ECG W/LEAST 12 [place] [address] ROSEMARIE HOUSTON 1/> AREAS 4 DONNA DONNA EACH 15 MIN NEUROMUSC REEDUCA CHIROPRAC 67640 ROSEMARIE HOUSTON TIC 4 DONNA DONNA MANIPULAT BEN [place] SPINAL 3-4 [facility] RADEX 78590 LUBBERS LUBBERS ANKLE 4 WILLI WILLI COMPLETE MINIMUM 3 VIEWS OBSERVATI 52593 [facility] ON CARE 3 LUZ ELENA HUG DISCHARGE PHYSICIAN SERVI MANAGEMEN T SBSQ 72787 [facility] OBSERVATI 3 LUZ ELENA HUG ON PHYSICIAN CARE/DAY SERVI 25 MINUTES INITIAL 65335 [facility] LUZ ELENA HUG ON PHYSICIAN CARE/DAY SERVI 50 MINUTES ECG 24434 CELLAROSI CELLAROSI ROUTINE 3 - YORBA - YORBA ECG PAT PAT W/LEAST 12 LDS I&R ONLY CRITICAL 98598 CELLAROSI CELLAROSI CARE 3 - YORBA - YORBA ILL/INJUR PAT PAT ED PATIENT INIT 30-[place] [address] CEE CEE RETROPERI 3 RHO RHO TONEAL REAL TIME W/IMAGE LIMITED ECG 28985 OZOR MAR OZOR MAR ROUTINE 3 ECG W/LEAST 12 LDS I&R ONLY ECG 15779 MARCO LARA ROUTINE 3 RYA RYA ECG W/LEAST 12 LDS I&R ONLY CT THORAX 89008 CARLINE MENSAH 3 W/[place] [address] [facility] INF[facility]ION [address] [place] [address] THERAPY/P MEDICAL MEDICAL ROPHYLAXI C C S /DX 1ST TO 1 HR INJECTION J1200 [address] DIPHENHYD MEDICAL MEDICAL RAMINE C C HCL UP TO 50 MG INFUSION J7030 [facility] CHILDRENS NORMAL [address] [place] [address] SALINE MEDICAL MEDICAL SOLUTION C C 1000 CC CALCIUM 64860 [facility] CH[facility] IONIZED [address] [place] [address] MEDICAL MEDICAL C C BASIC 88627 [facility] METABOLIC [address] [place] [address] PANEL [place] [address] [facility] CHILDREN INFUSION [address] [place] [address] THERAPY MEDICAL MEDICAL PROPHYLAX C C IS/DX EA HOUR BLOOD 91608 [facility] CHILDRENS COUNT [address] [place] [address] COMPLETE MEDICAL MEDICAL AUTO&AUTO C C DIFRNTL WBC INJ J1557 [facility] IMMUNE [address] [place] [address] GLOBULIN MEDICAL MEDICAL IV C C NONLYOPHI LIZED [address] [place] [address] [facility] GAMMAGLOB [address] [place] [address] ULIN IGA [facility] MEDICAL IGD IGG C C IGM EACH INJ J1720 [facility] HYDROCORT [address] [place] [address] ISONE MEDICAL MEDICAL SODIUM C C SUCCINATE TO 100 [place] [address] [facility] INFUSION [address] [place] [address] THER MEDICAL MEDICAL PROPH C C ADDL SEQUENTIA L TO 1 [place] [address] [facility] LIPASE 3 N N [facility] HOSPITA HOSPITA INJECTION J2405 [facility] 3 N N ONDANSETR [facility] ON HCL HOSPITA HOSPITA PER 1 [place] [address] [facility] AMYLASE 3 N N [facility] [place] [address] [facility] INFUSION 3 N N HYDRATION [facility] EACH HOSPITA HOSPITA ADDITIONA L HOUR COLLECTIO 81450 [facility] N VENOUS 3 N N BLOOD [facility] VENIPUNCT HOSPITA HOSPITA URE COMPREHEN 06910 [facility] SIVE 3 N N METABOLIC [facility] PANEL HOSPITA HOSPITA BLOOD 33913 [facility] COUNT 3 N N COMPLETE [facility] AUTOMATED HOSPITA HOSPITA THER 52052 [facility] PROPH/DX 3 N N NJX IV [facility] PUSH HOSPITA HOSPITA SINGLE/1S T SBST/DRUG BLOOD 15471 [facility] COUNT 3 N N SMEAR [facility] MCRSCP HOSPITA HOSPITA W/MNL DIFRNTL WBC COUNT THERAPEUT 26509 [facility] IC 3 N N INJECTION [facility] IV PUSH HOSPITA HOSPITA EACH NEW DRUG URINE 23217 [facility] 3 N N TEST [facility] VISUAL HOSPITA [place] [address] [facility] MAXILLOFA 3 N N CIAL W/O [facility] CONTRAST HOSPITA HOSPITA MATERIAL RADEX 74890 [facility] CROW[facility] JAM NASAL 3 BONES COMPLETE MINIMUM 3 VIEWS GROUND A0425 [facility] MILEA 3 N-ISHAN WHITMORE PER CO EMS CO EMS STATUTE MILE AMBULANCE A0429 [facility] SERVICE 3 N-ISHAN WHITMORE BLS CO EMS CO EMS EMERGENCY TRANSPORT GROUND A0425 [facility] MILEA 3 N SCOT T N SCOT T PER CO EMS CO EMS STATUTE MILE INITIAL 70863 POLA LAMAR MEÑO INPATIENT 3 HOSP MED CONSULT CTR NEW/ESTAB PT 110 MIN THERAPEUT 50455 [facility] IC 3 N N INJECTION [facility] IV PUSH HOSPITA HOSPITA EACH NEW DRUG CALCIUM 85904 [facility] IONIZED [address] [place] [address] [place] [address] [facility] ESTROGENS [address] [place] [address] TOTAL MEDICAL MEDICAL C C GONADOTRO 49638 [facility] CHILDRENS PIN [address] [place] [address] FOLLICLE MEDICAL MEDICAL STIMULATI C C NG HORMONE PROCALCIT 78199 [facility] ONIN [address] [place] [address] (PCT) MEDICAL MEDICAL C C CULTURE 88675 [facility] BACTERIAL [address] [place] [address] MEDICAL MEDICAL QUANTTATI C C VE COLONY COUNT URINE GONADOTRO 03663 [facility] CH[facility] PIN [address] [place] [address] LUTEINIZI MEDICAL [place] [address] [facility] CH[facility] FREE [address] [place] [address] THYROXINE MEDICAL MEDICAL C C CREATININ 79491 [facility] E OTHER [address] [place] [address] HOSPITAL SOURCE MEDICAL MEDICAL C C GLUCOSE 48162 [facility] [address] [place] [address] REAGENT MEDICAL MEDICAL STRIP C C URNLS DIP [address] STICK/TAB MEDICAL MEDICAL LET RGNT C C AUTO W/[place] [address] [facility] [address] [place] [address] STIMULATI MEDICAL MEDICAL [place] [address] [facility] CH[facility] RENIN [address] [place] [address] MEDICAL MEDICAL C C GONADOTRO 67290 [facility] PIN [address] [place] [address] CHORIONIC MEDICAL MEDICAL C C QUALITATI VE CULTURE 47006 [facility] BACTERIAL [address] [place] [address] BLOOD MEDICAL MEDICAL AEROBIC C C W/ID ISOLATES INJECTION [id number] CEFTRIAXO MEDICAL MEDICAL NE SODIUM C C PER 250 MG CRITICAL [address] ILL/INJUR MEDICAL MEDICAL ED C C PATIENT INIT 30-74 MIN THER 27784 [facility] PROPH/DX 3 N N NJX IV [facility] PUSH HOSPITA HOSPITA SINGLE/1S T SBST/DRUG BLOOD 56350 [facility] COUNT 3 N N COMPLETE [facility]ITY COMMUNITY AUTO&AUTO HOSPITA HOSPITA DIFRNTL WBC INJECTION J2405 [facility] 3 N N ONDANSETR [facility] ON HCL HOSPITA HOSPITA PER 1 [place] [address] [facility] INFUSION 3 N N HYDRATION [facility] EACH HOSPITA HOSPITA ADDITIONA L HOUR COMPREHEN 11344 [facility] SIVE 3 N N METABOLIC [facility] PANEL HOSPITA HOSPITA INJECTION J1561 [facility] IMMUNE [address] [place] [address] GLOBULIN MEDICAL MEDICAL NONLYOPHI C C LIZED [address] [place] [address] [facility] PHOSPHORU [address] [place] [address] S MEDICAL [place] [address] [facility] MAGNESIUM [address] [place] [address] MEDICAL MEDICAL C C BLOOD 67334 [facility] COUNT [address] [place] [address] COMPLETE MEDICAL MEDICAL AUTO&[place] [address] [facility] GAMMAGLOB [address] [place] [address] MEDICAL IGD IGG C C IGM EACH HEPATIC 49885 [facility] FUNCTION [address] [place] [address] [place] [address] [facility] INFUSION [address] [place] [address] HOSPITAL THERAPY MEDICAL MEDICAL PROPHYLAX C C IS/DX EA HOUR BASIC 23362 [facility] METABOLIC [address] [place] [address] PANEL MEDICAL [place] [address] [facility]ION [facility]PITAL HOSPITAL THERAPY/P MEDICAL MEDICAL ROPHYLAXI C C S /DX 1ST TO 1 [place] [address] [facility]ITAL HOSPITAL THERAPY/P MEDICAL MEDICAL ROPHYLAXI C C S /DX 1ST TO 1 HR BASIC 88302 [facility] METABOLIC [address] [place] [address] PANEL MEDICAL [place] [address] [facility]PITAL HOSPITAL THERAPY MEDICAL MEDICAL PROPHYLAX C C IS/DX EA HOUR HEPATIC 28313 [facility] FUNCTION [address] [place] [address] [place] [address] [facility] GAMMAGLOB [address] [place] [address] MEDICAL IGD IGG C C IGM EACH BLOOD 39917 [facility] COUNT [address] [place] [address] COMPLETE MEDICAL MEDICAL AUTO&AUTO C C DIFRNTL WBC INJ IG J1569 [facility] GAMMAGARD [address] [place] [address] LIQ IV MEDICAL MEDICAL NONLYOPHI C [place] LIZED [address] [place] [address] [facility] PHOSPHORU [address] [place] [address] S MEDICAL [place] [address] [facility] MAGNESIUM [address] [place] [address] [place] [address] [facility] CH[facility] MAGNESIUM [address] [place] [address] [place] [address] [facility] PHOSPHORU [address] [place] [address] S MEDICAL MEDICAL INORGANIC C C COLLECTIO 14610 [facility] N VENOUS [address] [place] [address] BLOOD MEDICAL MEDICAL VENIPUNCT C C URE BLOOD 96908 [facility] COUNT [address] [place] [address] COMPLETE MEDICAL MEDICAL AUTO&[place] [address] [facility] GAMMAGLOB [address] [place] [address] MEDICAL IGD IGG C C IGM EACH HEPATIC 14872 [facility] FUNCTION [address] [place] [address] [place] [address] [facility] INFUSION [address] [place] [address] HOSPITAL THERAPY MEDICAL MEDICAL PROPHYLAX C C IS/DX EA HOUR BASIC 79223 [facility] METABOLIC [address] [place] [address] MEDICAL MEDICAL CALCIUM C C TOTAL CALCIUM 26561 [facility] IONIZED [address] [place] [address] [place] [address] [facility]PITAL HOSPITAL THERAPY/P MEDICAL MEDICAL ROPHYLAXI C C S /DX 1ST TO 1 HR RADIOLOGI 43169 RADIOLOGY DONG C EXAM 3 MEENU CHEST 2 ASSOCIATE VIEWS S OF NOTH FRONTAL&L ATERAL INJ IG J1569 [facility] GAMMAGARD [address] [place] [address] LIQ IV MEDICAL MEDICAL NONLYOPHI C C LIZED [address] [place] [address] [facility] PHOSPHORU [address] [place] [address] MEDICAL [place] [address] [facility] GAMMAGLOB [address] [place] [address] IGD IGG C C IGM EACH BLOOD 56117 [facility] COUNT [address] [place] [address] COMPLETE MEDICAL MEDICAL AUTO&AUTO C C DIFRNTL WBC HEPATIC 49790 [facility] FUNCTION [address] [place] [address] HOSPITAL PANEL [place] [address] [facility] MAGNESIUM [address] [place] [address] [place] [address] [facility]PITAL HOSPITAL THERAPY/P MEDICAL MEDICAL ROPHYLAXI C C S /DX 1ST TO 1 HR CALCIUM 34762 [facility] IONIZED [address] [place] [address] MEDICAL MEDICAL C C BASIC 07475 [facility] METABOLIC [address] [place] [address] PANEL MEDICAL [place] [address] [facility] INFUSION [address] [place] [address] THERAPY MEDICAL MEDICAL PROPHYLAX C C IS/DX [facility] [address] [facility] DISCHARGE 3 Y OF ALONZO DAY [place] MANAGEMEN I PHY T 30 MIN/< SBSQ [address] [facility] 3 Y OF TORSTEN CARE/DAY [place] 25 I PHY MINUTES SBSQ 14243 [facility] 3 Y OF ALONZO CARE/DAY [place] 25 I PHY MINUTES SBSQ 00086 [facility] 3 Y OF ALONZO CARE/DAY [place] 25 I PHY MINUTES DXA BONE 81931 [facility] DENSITY 3 Y OF BRU STUDY 1/> [place] SITES I PHY AXIAL SKEL SBSQ 35976 [facility] 3 Y OF ALONZO CARE/DAY [place] 35 I PHY MINUTES SBSQ 09951 [facility] 3 Y OF ALONZO CARE/DAY [place] 25 I PHY MINUTES INITIAL 69685 [facility] INPATIENT 3 Y OF TORSTEN CONSULT [place] NEW/ESTAB I PHY PT 110 MIN INITIAL 63818 [facility] 3 Y OF ALONZO CARE/DAY [place] 70 I PHY MINUTES RADIOLOGI 85759 [facility] EXAM 3 Y OF MEENU CHEST 2 [place] VIEWS I PHY FRONTAL&L ATERAL INJECTION J0610 [facility] CALCIUM [address] [place] [address] GLUCONATE MEDICAL MEDICAL PER 10 C C ML 5% [id number] [facility] DEXTROSE/ [address] [place] [address] [facility] HEPATIC 80524 [facility] [address] [place] [address] PANEL MEDICAL MEDICAL C C THERAPEUT 65920 [facility] IC PX 1/> [address] [place] [address] AREAS MEDICAL MEDICAL EACH 15 C C MIN EXERCISES THER 53675 [facility] PROPH/DX [address] [place] [address] NJX IV MEDICAL MEDICAL PUSH C C SINGLE/1S T SBST/DRUG RENAL 71517 [facility] FUNCTION 3 [facility] PANEL MEDICAL MEDICAL C C NONINVASI 94622 [facility] VE [address] [place] [address] EAR/PULSE MEDICAL MEDICAL OXIMET[place] [address] [facility] MAGNESIUM [address] [place] [address] MEDICAL MEDICAL C C CALCIUM 96752 [facility] CH[facility] IONIZED [address] [place] [address] MEDICAL MEDICAL C C ORTHOTIC 83360 [facility] MGMT&GILBERT [address] [place] [address] [place] UXTR MEDICAL MEDICAL LXTR&/TRN C C K EA 15 THERAPEUT 56835 [facility] ACTVITY [address] [place] [address] DIRECT PT MEDICAL MEDICAL CONTACT C C EACH 15 MIN GROUND [id number] [facility] 3 [facility] OF [facility] [place] [address] [facility] INFUSION [address] [place] [address] THERAPY/P MEDICAL MEDICAL ROPHYLAXI C C S /DX 1ST TO 1 HR CALCIUM 01204 [facility] IONIZED [address] [place] [address] [place] [address] [facility] INFUSION [address] [place] [address] THERAPY MEDICAL MEDICAL PROPHYLAX C C IS/DX EA HOUR BASIC 08748 [facility] METABOLIC [address] [place] [address] PANEL MEDICAL [place] [address] [facility] MAGNESIUM [address] [place] [address] [place] [address] [facility] PHOSPHORU [address] [place] [address] S MEDICAL MEDICAL INORGANIC C C COLLECTIO 84807 [facility] N VENOUS [address] [place] [address] BLOOD MEDICAL MEDICAL VENIPUNCT C C URE PHYSICAL 79502 [facility] THERAPY [address] [place] [address] EVALUATIO MEDICAL MEDICAL N C C INJ IG J1569 [facility] GAMMAGARD [address] [place] [address] LIQ IV MEDICAL MEDICAL NONLYOPHI C C LIZED [address] [place] [address] [facility] GAMMAGLOB [address] [place] [address] ULIN IGA MEDICAL MEDICAL IGD IGG C C IGM EACH CYCLIC 77124 [facility]DRENS CHILDRENS CITRULLIN [address] [place] [address] ATED MEDICAL MEDICAL PEPTIDE C C ANTIBODY BLOOD 91222 CHILDRENS CHILDRENS COUNT [address] [place] [address] COMPLETE MEDICAL MEDICAL AUTO&AUTO C C DIFRNTL WBC INJ IG J1569 CHILDRENS CHILDRENS GAMMAGARD [address] [place] [address] LIQ IV MEDICAL MEDICAL NONLYOPHI C C LIZED 500 [place] [address] CHILDRENS CHILDRENS GAMMAGLOB [address] [place] [address] ULIN IGA MEDICAL MEDICAL IGD IGG C C IGM EACH RHEUMATOI 78085 CHILDRENS CHILDRENS D FACTOR 2 [facility] QUANTITAT MEDICAL MEDICAL BEN C C EXTRACTAB 58345 CHILDRENS CHILDRENS LE [address] [place] [address] NUCLEAR MEDICAL MEDICAL ANTIGEN C C ANTIBODY ANY METHOD HEPATIC 03794 CHILDREN CHILDRENS FUNCTION 2 [facility] PANEL MEDICAL MEDICAL C C RADEX 09614 CHILDREN CHILDRENS SPINE [address] [place] [address] LUMBOSACR MEDICAL MEDICAL AL /3 C C VIEWS C-REACTIV 57552 CHILDREN CHILDRENS E PROTEIN [address] [place] [address] MEDICAL MEDICAL C C RADEX 30276 CHILDREN CHILDRENS HAND [address] [place] [address] [place] [address] CHILDREN CHILDRENS PHOSPHORU [address] [place] [address] S MEDICAL [place] [address] CHILDREN CHILDRENS MAGNESIUM [address] [place] [address] MEDICAL MEDICAL C C BASIC 19580 [facility] METABOLIC [address] [place] [address] PANEL MEDICAL MEDICAL CALCIUM C C TOTAL SEDIMENTA 05040 CHILDREN CHILDRENS TION RATE [address] [place] [address] [place] [address] [facility] INFUSION [address] [place] [address] HOSPITAL THERAPY MEDICAL MEDICAL PROPHYLAX C C IS/DX EA HOUR CALCIUM 81938 CHILDREN CHILDREN IONIZED 2 [facility] [place] [address] CHILDREN CHILDREN INFUSION 2 [facility] THERAPY/P MEDICAL MEDICAL ROPHYLAXI C C S /DX 1ST TO 1 HR RADIOLOGI 37680 [facility] CHILDREN C [address] [place] [address] EXAMINATI MEDICAL MEDICAL ON KNEE C C / [place] [address] CHILDREN CHILDREN INFUSION [address] [place] [address] HOSPITAL THERAPY/P MEDICAL MEDICAL ROPHYLAXI C C S /DX 1ST TO 1 HR CALCIUM 17256 CHILDREN CHILDRENS IONIZED 2 [facility] [place] [address] CHILDREN CHILDRENS INFUSION 2 [facility] THERAPY MEDICAL MEDICAL PROPHYLAX C C IS/DX EA HOUR BASIC 71126 CHILDREN CHILDRENS METABOLIC 2 [facility] PANEL MEDICAL [place] [address] CHILDREN CHILDREN MAGNESIUM 2 [facility] [place] [address] CHILDREN CHILDRENS PHOSPHORU [address] [place] [address] S MEDICAL MEDICAL INORGANIC C C HEPATIC 53741 CHILDREN CHILDRENS FUNCTION 2 [facility] [place] [address] [facility] [address] IGD IGG C C IGM EACH INJ IG [id number] [address] LIQ IV MEDICAL MEDICAL NONLYOPHI C C LIZED 500 MG BLOOD [address] COMPLETE MEDICAL MEDICAL AUTO&AUTO C C DIFRNTL WBC CYTP 44635 PATHOLOGY PICKLESIM CERV/VAG 2 & ER JR ERICA AUTO THIN CYTOLOGY LAYER LAB PREP MNL SCREEN URINE 13617 P[place] PENDELETO 2 N CO N CO TEST [facility] VISUAL CENTER [place] [address] [facility] INFUSION 2 [facility] THERAPY/P MEDICAL MEDICAL ROPHYLAXI C C S /DX 1ST TO 1 [place] [address] [facility] INFUSION [address] [place] [address] THERAPY MEDICAL MEDICAL PROPHYLAX C C IS/DX EA HOUR BASIC 88275 [facility] METABOLIC 2 [facility] PANEL MEDICAL MEDICAL CALCIUM C C TOTAL BLOOD 07975 [facility] COUNT [address] [place] [address] COMPLETE MEDICAL MEDICAL AUTO&AUTO C C DIFRNTL WBC INJ IG J1569 [address] LIQ IV MEDICAL MEDICAL NONLYOPHI C C LIZED 500 MG 5% J7060 [facility] DEXTROSE/ 2 [facility] [place] [address] [facility] [address] MEDICAL IGD IGG C C IGM EACH HEPATIC 75120 [facility] CHILDRENS FUNCTION [address] [place] [address] [place] [address] CHILDRENS CHILDRENS PHOSPHORU [address] [place] [address] S MEDICAL [place] [address] CHILDREN CHILDRENS MAGNESIUM 2 [facility] MEDICAL MEDICAL C C DRUG 98396 CHILDREN CHILDRENS SCREEN [address] [place] [address] QUANTITAT MEDICAL MEDICAL BEN C C SIROLIMUS 5% J7060 CHILDREN CHILDRENS DEXTROSE/ 2 [facility] WATER MEDICAL MEDICAL C C INJ IG J1569 CHILDRENS CHILDRENS GAMMAGARD [address] [place] [address] LIQ IV MEDICAL MEDICAL NONLYOPHI C C LIZED 500 MG BASIC 54394 CHILDREN CHILDREN METABOLIC [address] [place] [address] PANEL MEDICAL [place] [address] [facility] [address] [place] [address] THERAPY MEDICAL MEDICAL PROPHYLAX C C IS/[place] [address] [facility] INFUSION [address] [place] [address] HOSPITAL THERAPY/P MEDICAL MEDICAL ROPHYLAXI C C S /DX 1ST TO 1 HR BASIC 82747 [facility] METABOLIC [address] [place] [address] PANEL MEDICAL MEDICAL [place] [address] [facility] [address] [place] [address] THYROXINE MEDICAL MEDICAL C C COLLECTIO 28920 CHILDREN CHILDRENS N VENOUS [address] [place] [address] BLOOD MEDICAL MEDICAL [place] [address] [facility] THYROID [address] [place] [address] STIMULATI MEDICAL MEDICAL [place] [address] [facility] MAGNESIUM [address] [place] [address] [place] [address] CHILDREN CHILDRENS PHOSPHORU [address] [place] [address] S MEDICAL MEDICAL INORGANIC C C DRUG 31093 CHILDRENS CHILDRENS SCREEN [address] [place], [place] [address]AT MEDICAL MEDICAL BEN C C SIROLIMUS LYMPHOCYT 42126 CHILDREN CHILDRENS E TR [address] [place] [address] MITOGEN/A MEDICAL MEDICAL G INDUCED C C BLASTOGEN ESIS ANTIBODY 47435 CHILDREN CHILDREN TETANUS [address] [place] [address] [place] [address] [facility] GAMMAGLOB [address] [place] [address] ULIN IGA MEDICAL MEDICAL IGD IGG C C IGM EACH BLOOD 80236 CHILDREN CHILDRENS COUNT [address] [place] [address] COMPLETE MEDICAL MEDICAL AUTOMATED C C FLOW 06511 CHILDREN CHILDRENS CYTOMETRY 2 [facility] INTERJ MEDICAL MEDICAL 2-8 C C MARKERS ANTIBODY 78100 CHILDREN CHILDREN BACTERIUM [address] [place] [address] HOSPITAL NOT MEDICAL MEDICAL ELSEWHERE C C SPECIFIED ANTIBODY 95101 [facility] VARICELLA [address] [place] [address] -ZOSTER MEDICAL MEDICAL C C HEPATIC 33917 [facility] FUNCTION [address] [place] [address] PANEL MEDICAL MEDICAL C C BLOOD 93253 CHILDREN CHILDRENS COUNT [address] [place] [address] SMEAR MEDICAL MEDICAL MCRSCP C C W/[place] [address] [facility] [place] WESTERFIE RETROPERI 2 RADIOLOGY LD IV A TONEAL REAL TIME W/IMAGE LIMITED RADIOLOGI 49362 [facility] [place] GENI C EXAM 2 RADIOLOGY LEON CHEST 2 VIEWS FRONTAL&L ATERAL PROTHROMB 18304 CHILDREN CHILDREN IN TIME [address] [place] [address] [place] [address] [facility] GAMMAGLOB [address] [place] [address] ULIN IGA MEDICAL MEDICAL IGD IGG C C IGM EACH MICROSOMA 22471 [facility] L [address] [place] [address] ANTIBODIE MEDICAL MEDICAL S EACH C C FLOW 22430 [facility] CYTOMETRY [address] [place] [address] MEDICAL MEDICAL 2-8 C C MARKERS BILE 66748 [facility] ACIDS [address] [place] [address] TOTAL MEDICAL MEDICAL C C 25 49521 [facility] HYDROXY [address] [place] [address] INCLUDES MEDICAL MEDICAL FRACTIONS C C IF PERFORMED IMMUNOASS 40725 [facility] AY [address] [place] [address] ANALYTE MEDICAL MEDICAL QUAL/SEMI C C QUAL MULTIPLE STEP ALPHA-FET 24578 [facility] OPROTEIN [address] [place] [address] [place] [address] [facility] [address] [place] [address] S MEDICAL [place] [address] [facility] MAGNESIUM [address] [place] [address] MEDICAL MEDICAL C C FLUORESCE 00262 [facility] NT [address] [place] [address] NONNFCT MEDICAL MEDICAL AGT ANTB C C SCREEN EA ANTIBODY GENERAL [address] PANEL MEDICAL MEDICAL C C THROMBOPL [address] [facility] TIME MEDICAL MEDICAL PARTIAL C C PLASMA/[place] B[place] [address] ABDOMINAL 2 WIL[facility] WILSON REAL FT FT TIME DIVYA STOKES W/IMAGE LIMITED GROUND A0425 JERILYN JERILYN MILEAGE 2 FAYETTE FAYETTE PER [place] [address] MICHAEL BAR MICHAEL BAR HEAD/BRAI 2 N W/O CONTRAST MATERIAL AMB A0427 JERILYN JERILYN SERVICE 2 FAYETTE FAYETTE ALS URBAN URBAN EMERGENCY [place] [address] MICHAEL BAR MICHAEL BAR THORACIC 2 SPINE W/O CONTRAST MATERIAL RADEX 39462 [facility] [place] RODRIGUES FOOT 2 RADIOLOGY TIFFANY COMPLETE MINIMUM 3 VIEWS THERAPEUT 93324 [facility] ALESSANDRO IC PX 1/> 2 [facility] JOSE DAVID AREAS TIC EACH [address] [place] [address] [facility] EBONYKAM 1/> AREAS 2 [facility] JOSE DAVID EACH 15 TIC MIN CENTER NEUROMUSC REEDUCA CHIROPRAC 29019 [facility] TIC 2 [facility] JOSE DAVID MANIPULAT TIC BEN TX CENTER SPINAL 3-4 REGIONS STRAPPING 99473 ACS ACS KNEE 2 PRIMARY PRIMARY CARE CARE PHYSICANS MELVI Steven URNLS DIP [address] 2 [facility] WILSON STICK/TAB FT FT LET RGNT DIVYA STOKES NON-AUTO W/O MICRSCP INJ [id number] [address] ST HYDROCORT 2 [facility] W[facility] ISONE FT FT SODIUM DIVYA STOKES SUCCINATE TO [address] [place] [address] INFUSION 2 [facility] WILSON HYDRATION FT FT EACH DIVYA STOKES ADDITIONA L HOUR COLLECTIO [address] N VENOUS 2 [facility] WILSON BLOOD FT FT VENIPUNCT [facility] URE THER [address] PROPH/DX 2 [facility] WILSON NJX IV FT FT PUSH [facility] STOKES SINGLE/1S T SBST/DRUG BLOOD [address] COUNT 2 [facility] WILSON COMPLETE FT FT AUTO&AUTO DIVYA STOKES DIFRNTL WBC BASIC [address] METABOLIC 2 [facility] WILSON PANEL [place] [address] MICHAEL BAR MICHAEL BAR MAXILLOFA 2 CIAL W/O CONTRAST MATERIAL GONADOTRO 19504 CHILDRENS CHILDRENS PIN 1 [facility] CHORIONIC MEDICAL MEDICAL C C QUANTITAT BEN BLOOD 36684 CHILDRENS CHILDRENS COUNT 1 [facility] COMPLETE [place] [address] CHILDRENS CHILDRENS HISTOPLAS 1 [facility] M MEDICAL MEDICAL CAPSULATU C C M COMPREHEN 71081 CHILDRENS CHILDRENS SIVE [address] [place] [address] METABOLIC MEDICAL MEDICAL PANEL C C DRUG 94666 CHILDRENS CHILDRENS SCREEN 1 [facility] QUANTITAT [facility] MEDICAL BEN C C SIROLIMUS COLLECTIO 59051 CHILDRENS CHILDRENS N VENOUS 1 [facility] BLOOD [facility] [place] [address] CHILDREN CHILDRENS PHOSPHORU 1 [facility] S [place] [address] CHILDRENS CHILDRENS MAGNESIUM 1 [facility] MEDICAL MEDICAL C C UNLISTED 30186 CHILDRENS CHILDRENS IMMUNOLOG 1 [facility] Y MEDICAL MEDICAL C C BLOOD 52984 CHILDRENS CHILDRENS COUNT 1 [facility] SMEAR [facility] MEDICAL MCRSCP C C W/[place] [address] ACS MERCHANT RIB 1 PRIMARY KET FRACTURE CARE UNCOMPLIC PHYSICANS ATED EACH M RADEX 14405 [facility] [place] KOSTELIC RIBS UNI 1 RADIOLOGY ANA W/POSTERO ANT CH MINIMUM [address] [place] [address] [facility] [place] R[place] HEAD/BRAI 1 RADIOLOGY ROBSON N W/O CONTRAST MATERIAL INJ J1720 [facility] HYDROCORT 1 [facility] ISONE SODIUM SUCCINATE TO 100 MG THERAPEUT 02951 [facility] IC 1 [facility] PROPHYLAC TIC/DX INJECTION SUBQ/IM GONADOTRO 28530 [facility] PIN 1 [facility] CHORIONIC QUALITATI VE RADIOLOGI 19973 CHILDRENS CHILDRENS C EXAM 1 HOSPITAL [facility]PITAL CHEST 2 MEDICAL MEDICAL VIEWS C C FRONTAL&[place] [address] CHILDRENS CHILDRENS GAMMAGLOB 1 [facility] ULIN IGA MEDICAL MEDICAL IGD IGG C C IGM EACH FLOW 84907 CHILDRENS CHILDRENS CYTOMETRY 1 [facility] INTERPJ MEDICAL MEDICAL 2-8 C C MARKERS FLOW 30738 CHILDRENS CHILDRENS CYTOMETRY 1 [facility]OS[facility]ITAL HOSPITAL CELL MEDICAL MEDICAL SURF C C MARKER TECHL ONLY 1ST MICROSOMA 65561 CHILDRENS CHILDRENS L 1 [facility] ANTIBODIE MEDICAL MEDICAL S EACH C C COLLECTIO 05385 CHILDRENS CHILDRENS N VENOUS 1 [facility] BLOOD MEDICAL MEDICAL VENIPUNCT C C URE URNLS DIP 70760 CHILDRENS CHILDRENS [address] [place] [address] STICK/TAB MEDICAL MEDICAL LET RGNT C C AUTO W/O MICROSCOP Y ALPHA-FET 20518 CHILDRENS CHILDRENS OPROTEIN 1 [facility] SERUM MEDICAL MEDICAL C C CREATININ 41401 CHILDRENS CHILDRENS E OTHER 1 [facility] SOURCE MEDICAL MEDICAL C C FLOW 74333 CHILDRENS CHILDRENS CYTOMETRY 1 [facility] CELL MEDICAL MEDICAL SURF C C MARKER TECHL ONLY EA BILE 28343 CHILDRENS CHILDRENS ACIDS 1 [facility] [place] [address] CHILDRENS CHILDRENS MAGNESIUM 1 [facility] MEDICAL MEDICAL C C 25 01825 CHILDRENS CHILDRENS HYDROXY 1 [facility] INCLUDES MEDICAL MEDICAL FRACTIONS C C IF PERFORMED IMMUNOASS 78023 CHILDRENS CHILDRENS AY 1 [facility] ANALYTE MEDICAL MEDICAL QUAL/SEMI [place] [address] CHILDRENS CHILDRENS PHOSPHORU 1 [facility] S MEDICAL MEDICAL INORGANIC C C PROTEIN 65844 CHILDRENS CHILDRENS TOTAL 1 [facility] XCPT MEDICAL MEDICAL [place] [address] CHILDRENS CHILDRENS THYROXINE [address] [place] [address] TOTAL MEDICAL MEDICAL C C BLOOD 65602 CHILDRENS CHILDRENS COUNT 1 [facility] SMEAR MEDICAL MEDICAL MCRSCP C C W/MNL DIFRNTL WBC COUNT GENERAL 99351 CHILDREN CHILDRENS HEALTH [address] [place] [address] PANEL MEDICAL MEDICAL C C FLUORESCE 70681 CHILDRENS CHILDRENS NT 1 [facility] NONNFCT MEDICAL MEDICAL AGT ANTB C C SCREEN EA ANTIBODY BLOOD 19753 [facility] GREGG SMEAR 1 [facility] INTERP PSC PHYS W/WRIT REPORT INCISION 72179 ACS LEHNERT & 1 PRIMARY RAY DRAINAGE CARE ABSCESS PHYSICANS COMPLICAT M ED/MULTIP LE GONADOTRO 40200 [facility] PIN 1 [facility] [place] [address] [facility] MAXILLOFA 1 [facility] CIAL W/O CONTRAST MATERIAL RADEX 96231 RADIOLOGY LAIB JOHN SPINE 0 CERVICAL ASSOCIATE 4 OR 5 S PSC VIEWS RADIOLOGI 24372 RADIOLOGY LAIB JOHN C EXAM 0 CHEST 2 ASSOCIATE VIEWS S PSC FRONTAL&L ATERAL URINE 04462 [facility], 0 WILSON CANDIDO TEST VISUAL PHYSICIAN COLOR S CMPRSN METHS Encounters Encounter Start End Date Code Location Performer Type Date HOSPITAL ST - 7 7 [facility] OUTPATIEN T [facility] E EDGE INITIAL 85009 [facility] PREVENTIV 7 7 [facility] E MEDICINE PHYSICIAN NEW PT S AGE 18-39YRS EMERGENCY 36701 [facility] 7 7 EMERGENCY DEPARTMEN T VISIT PHYSICIAN HIGH/URGE S NT SEVERITY OFFICE 84369 LANNY COLIN 7 7 [facility] T VISIT TIC 15 CENTER MINUTES OFFICE 94316 [facility] SINGLETON OUTPATIEN 7 7 MEDICAL T NEW 45 SERV MINUTES [facility] - 7 7 [facility] OUTPATIEN E T HOSPITALS OFFICE 53170 [facility] 7 7 [facility] T VISIT 5 E MINUTES HOSPITALS OFFICE 92923 LANNY COLIN 7 7 [facility] T VISIT TIC 15 CENTER MINUTES HOSPITAL [facility] - 6 6 [facility] OUTPATIEN E T HOSPITALS OFFICE 05717 OUTPATIEN 6 6 [facility]ALTH[facility] T VISIT 5 E MINUTES HOSPITALS OFFICE 33939 [facility] 6 6 [place] KANG T VISIT PHYSICIAN 15 S ASSIST MINUTES EMERGENCY 98648 TYLER PIÑA 6 6 PHYSICIAN CURTIS DEPARTMEN S, PLLC T VISIT MODERATE SEVERITY HOSPITAL THE - 6 6 [facility] T OFFICE 93317 [facility] 6 6 PARMINDER MIN T VISIT HOSPITAL 25 MEDICAL MINUTES OFFICE 35287 [facility] EDDA [facility] 6 6 [facility] T VISIT TIC 15 CENTER MINUTES EMERGENCY 33315 TYLER GARCIAEY 6 6 PHYSICIAN CURTIS DEPARTMEN S, PLLC T VISIT MODERATE SEVERITY OFFICE 97687 [facility] 6 6 Y T VISIT 5 HOSPITAL MINUTES HOSPITAL [facility] - 6 6 Y [facility] T OFFICE 43175 [facility] 6 6 [facility]AC GAR T VISIT TIC 15 CENTER MINUTES EMERGENCY 92943 [facility] 5 5 EMERGENCY DEPARTMEN T VISIT PHYSICIAN HIGH/URGE S NT SEVERITY OFFICE 58587 [facility] 5 5 Y T VISIT 5 HOSPITAL MINUTES OFFICE 07060 ALVIN CARRANZA [facility] 5 5 MEDICAL JUS T VISIT SERV 15 FOUNDATIO MINUTES [facility] UNIVERSIT - 5 5 Y [facility] T OFFICE 99943 [facility] 5 5 CHIROPRAC T VISIT TIC 15 CENTER MINUTES OFFICE 37306 [facility] 5 5 HILL T VISIT REHABILIT 10 ATION MINUTES OFFICE 78892 [place] [facility] MEDICAL SHEA T VISIT SERV 25 FOUNDATIO MINUTES [facility] CARDINAL - 5 5 [facility] OUTPATIEN [facility]ABILIT T [facility] UNIVERSIT - 5 5 Y OUTPATIEN HOSPITAL T OFFICE 62995 [facility] OUTPATIEN 5 5 Y T VISIT 5 HOSPITAL MINUTES OFFICE 93968 [facility] TRAN OUTPATIEN 5 5 HOSPITAL MIN T NEW 45 MEDICAL MINUTES ASSO OFFICE 16049 ALVIN CARRANZA OUTPATIEN 5 5 MEDICAL JUS T VISIT SERV 25 FOUNDATIO MINUTES HOSPITAL CARDINAL - 5 5 [facility] INPATIENT REHABILIT [facility] EMERGENCY 40792 [facility] CELLAROSI DEPT 5 5 LUZ ELENA - YORBA VISIT EMERGENCY PAT HIGH PHYS SEVERITY& THREAT FUNCJ OFFICE 99920 COLE GALVAN OUTPATIEN 5 5 COL COL T NEW 20 MINUTES EMERGENCY 47731 [facility] GERONIMO ERIC DEPT 4 4 LUZ ELENA VISIT EMERGENCY HIGH PHYS SEVERITY& [facility] 4 Y [facility]IENT [place] [facility] OFFICE 54224 ROSEMARIE HOUSTON OUTPATIEN 4 4 DONNA DONNA T VISIT 15 MINUTES EMERGENCY 43301 MICHELLE HO MICHELLE HO DEPT 4 4 VISIT HIGH SEVERITY& THREAT FUNCJ OFFICE 17164 ROSEMARIE HOUSTON OUTPATIEN 4 4 DONNA DONNA T VISIT [address] 4 4 WIL[facility] DEPARTMEN FT T VISIT DIVYA MODERATE SEVERITY HOSPITAL ST - 4 4 WILSON OUTPATIEN FT T DIVYA EMERGENCY 23254 HE[facility] CADET 4 4 DEPARTMEN T VISIT HIGH/URGE NT SEVERITY EMERGENCY 85121 LINDA VARGAS DEPT 3 3 VISIT HIGH SEVERITY& THREAT FUNCJ EMERGENCY 47152 JUSTIN ANDERSON 3 3 SCO SCO DEPARTMEN T VISIT HIGH/URGE NT SEVERITY EMERGENCY 24431 MARCO LARA DEPT 3 3 RYA RYA VISIT HIGH SEVERITY& THREAT [facility] [place] [address] 3 [facility] T [facility] [place] [address] [facility] 83523 [facility] 3 3 N [facility] COMMUNITY T VISIT HOSPITA HIGH/URGE NT SEVERITY [facility] [place] [address] [facility] 75958 DOMINGUEZ MIX 3 3 EITAN EITAN DEPARTMEN T VISIT MODERATE SEVERITY EMERGENCY 98130 [facility] 3 3 N [facility] COMMUNITY T VISIT HOSPITA HIGH/URGE NT SEVERITY EMERGENCY 45524 CELL[facility]OSI CELLAROSI 3 3 - YORBA - YORBA DEPARTREGENCY MERIDIAN PAT PAT T VISIT HIGH/URGE NT SEVERITY HOSPITAL [place] [address] 3 [facility] T EMERGENCY 42854 [place] [facility] DE[facility] 3 3 EMERGENCY VISIT SERVICES HIGH SEVERITY& THREAT [facility] [place] [id number] [facility] 17567 [place] MIX 3 3 EMERGENCY EITAN DEPARTMEN SERVICES T VISIT MODERATE SEVERITY [facility] [place] [address] 3 [facility] C [facility] 89474 [facility] T VISIT [facility] 25 MINUTES OFFICE 97268 [facility] 3 3 HOSP MED GRE T VISIT CTR 15 MINUTES H[facility]PITAL [place] [address]58 3 Y [facility] T OFFICE 32674 UN[facility] JILL OUTPATIEN 3 3 Y OF WILLI T VISIT [facility] 25 I PHY MINUTES OFFICE 62419 [facility] 3 3 Y T [facility]ISIT 5 [facility] - 3 3 [facility] T C OFFICE 04383 [facility] OUTPATIEN 3 3 HOSP MED GRE T VISIT CTR [address] - 3 3 [facility] CHILDRENS - 3 3 [facility] T C OFFICE 46154 [facility] OUTPATIEN 3 3 HOSPITAL EITAN T VISIT MEDICAL 25 C MINUTES EMERGENCY 26093 [facility] DEPT 3 3 Y OF VIR VISIT [facility] HIGH I PHY SEVERITY& THREAT [facility] CHILDRENS - 3 3 [facility] CHILDRENS - 3 3 [facility] CHILDRENS - 2 2 [facility] OFFICE 43394 [facility]IN OUTPATIEN 2 2 HOSP MED T NEW 45 CTR MINUTES OFFICE 50572 [facility] OUTPATIEN 2 2 HOSPITAL EITAN T VISIT MEDICAL 25 C MINUTES OFFICE 70189 [facility] OUTPATIEN 2 2 HOSP MED EITAN T VISIT CTR 25 MINUTES HOSPITAL CHILDRENS - 2 2 [facility] 76692 [facility] PREVENTIV 2 2 N CO N CO E MED EST [facility] PATIENT CENTER CENTER 18-39 YRS OFFICE 98679 [facility] FILIPOVIC OUTPATIEN 2 2 HOSP MED H EMILY T VISIT CTR 25 MINUTES HOSPITAL [facility]DRENS - 2 2 [facility] - 2 2 [facility] MEDICAL T C OFFICE 72030 [facility]UL OUTPATIEN 2 2 HOSPITAL MAR T VISIT MEDICAL 25 C MINUTES OFFICE 85579 [facility] [place] OUTPATIEN 2 2 HOSPITAL GRE T VISIT MEDICAL 40 C MINUTES HOSPITAL [facility]DRENS - 2 2 HOSPITAL OUTPATI MEDICAL T C OFFICE 80651 [facility] OUTPATIEN 2 2 HOSPITAL T VISIT MEDICAL 15 C MINUTES OFFICE 53365 [facility] OUTPATIEN 2 2 HOSPITAL T NEW 30 MEDICAL MINUTES [facility] CHILDRENS - 2 2 [facility] MED[facility] T C EMERGENCY 08046 [facility] DEPT 2 2 PRIMARY VISIT CARE HIGH PHYSICANS SEVERITY& M THREAT FUNCJ EMERGENCY 54998 [facility] 2 2 PRIMARY EDW DEPARTMEN CARE T VISIT PHYSICANS HIGH/URGE M NT SEVERITY OFFICE 52635 [facility] T VISIT MEDICAL 40 C MINUTES HOSPITAL [facility] - OTHER 2 2 HOSPITAL MEDICAL [facility] - [address] [facility] T DIVYA EMERGENCY 29432 [facility] DEPT 2 2 LUZ ELENA VISIT EMERGENCY HIGH PHYS SEVERITY& THREAT FUNCJ EMERGENCY 51985 ACS 2 2 PRIMARY DEPARTMEN CARE T VISIT PHYSICANS HIGH/URGE M NT SEVERITY EMERGENCY 94483 [facility] 2 2 PRIMARY DEPARTMEN CARE T VISIT PHYSICANS MODERATE M SEVERITY OFFICE 91885 [facility] OUT[facility] 2 2 [facility] JOSE DAVID T NEW 30 TIC MINUTES CENTER EMERGENCY 00099 [facility] 2 2 PRIMARY DEPARTMEN CARE T VISIT PHYSICANS HIGH/URGE M NT SEVERITY EMERGENCY 14590 [facility] DEPT 2 2 VISIT HIGH SEVERITY& THREAT [facility] EMERGENCY [id number] 2 2 [facility] DEPARTREGENCY MERIDIAN FT T VISIT [facility] HIGH/URGE NT SEVERITY [facility] - 2 2 [facility] OUTPATIEN FT T [facility]YA EMERGENCY 03010 [facility]YA 2 2 DIANA DIANA DEPARTMEN T VISIT HIGH/URGE NT SEVERITY OFFICE 64829 [facility] 1 [facility] T VISIT MEDICAL 40 C MINUTES OFFICE 27155 [facility] YAZIGI OUTPATIEN 1 1 NAD NAD T VISIT 25 MINUTES [facility] - OTHER 1 1 [facility] MEDICAL C EMERGENCY 04416 [facility] 1 1 PRIMARY KET DEPARTMEN CARE T VISIT PHYSICANS HIGH/URGE M NT SEVERITY [facility] 1 1 [facility] OUTPATIEN T EMERGENCY 23484 [facility] 1 1 PRIMARY PHI DEPARTMEN CARE T VISIT PHYSICANS MODERATE M SEVERITY EMERGENCY 18674 [facility] 1 1 [facility] DEPARTMEN T VISIT HIGH/URGE NT SEVERITY OFFICE 07642 [facility] 1 1 [facility]PITAL T VISIT MEDICAL 40 C MINUTES OFFICE 87920 [facility] YAZIGI OUTPATIEN 1 1 HOSP MED NAD T VISIT CTR 25 MINUTES [facility] - OTHER 1 1 [facility] MED[facility] C EMERGENCY 91726 [facility] 1 1 [facility] DEPARTMEN T VISIT LOW/MODER SEVERITY [facility] - 1 1 [facility] OUTPATIEN T EMERGENCY 60760 [facility] 1 1 [facility] [place] DEPARTMEN CARE T VISIT PHYSICANS HIGH/URGE M NT SEVERITY EMERGENCY 17940 [facility] 1 1 [facility] DEPARTMEN T VISIT MODERATE SEVERITY [facility] - 1 1 [facility]OSPITAL OUTPATIEN T EMERGENCY 06[address] [facility] 1 1 [facility] DEPARTMEN T VISIT MODERATE SEVERITY [facility] - 1 1 [facility] OUTPATIEN T EMERGENCY 88961 [facility] STACK [facility] 1 1 PRIMARY DEPARTMEN CARE T VISIT PHYSICANS HIGH/URGE M NT SEVERITY EMERGENCY 42494 EMERGENCY EMERY [facility] 0 0 CARE DEPARTMEN PHYS T VISIT [facility] HIGH/URGE NT SEVERITY OFFICE 540[address] [facility] OUT[facility] 0 0 [facility] SHE T VISIT 25 PHYSICIAN MINUTES S EMERGENCY 68642 EMERGENCY EMERY [facility] 0 0 CARE DEPARTMEN PHYS T VISIT [facility] HIGH/URGE NT SEVERITY OFFICE 78685 [facility] OUTPAT[facility] 0 0 [facility] SHE T VISIT 25 PHYSICIAN MINUTES S EMERGENCY 12098 [facility] 0 0 [facility] ARI DEPARTMEN MED CTR T VISIT HIGH/URGE NT SEVERITY [facility]OSPITAL ST - 0 0 [facility] OUTPATIEN T MEDICALCE NTER EMERGENCY 79955 ST 0 0 [facility] DEPARTMEN T VISIT MEDICALCE MODERATE NTER SEVERITY EMERGENCY 32867 EMERGENCY [facility] ANA 0 0 CARE DEPARTMEN PHYS T VISIT [facility] HIGH/URGE NT SEVERITY OFFICE 65[address] [facility], OUTPATIEN 0 0 [facility] CANDIDO T VISIT 15 PHYSICIAN MINUTES S OFFICE 40476 [facility], OUTPATIEN 0 0 [facility] CANDIDO T VISIT 25 PHYSICIAN MINUTES S
--- OUTSIDE RECORDS SUMMARY | 2017-03-29 04:17 | External Medical Summary Rpt | CCD ---
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 [facility] [place] 7 [facility] MODALITY TIC TIC 1/> AREAS CENTER CENTER HOT/COLD PACKS APPLICATI 26555 [facility] [place] [facility] MODALITY TIC TIC 1/> AREAS CENTER CENTER HOT/COLD PACKS MANUAL 11839 [place] [facility] THERAPY 7 [facility]AC TQS 1/> TIC REGIONS CENTER EACH 15 MINUTES [facility]AC 15182 [facility] F[facility] TIC 7 [facility] MANIPULAT TIC [facility] SPINAL 3-4 REGIONS CHIROPRAC 45107 [facility] TIC 7 [facility] MANIPLTV TIC TX CENTER EXTRASPIN AL 1/> REGION APPL 33263 [facility] MODALITY 7 CHIROPRAC 1/> AREAS TIC TRACTION CENTER MECHANICA L APPL 68119 [facility] MOD[facility] 7 CHIROPRAC CHIROPRAC 1/> AREAS TIC TIC TRACTION CENTER CENTER MECHANICA L CHIROPRAC 40771 [facility] TIC 7 [facility] MANIPLTV TIC TX CENTER EXTRASPIN AL 1/> REGION CHIROPRAC 31225 [facility] TIC 7 [facility] MANIPULAT TIC [facility] SPINAL 3-4 REGIONS MANUAL 06999 [place] [facility] THERAPY 7 [facility]IROP[facility]AC TQS 1/> TIC REGIONS CENTER EACH 15 MINUTES APPLICATI 84161 [facility] FELICIANO ON 7 [facility] MODALITY TIC 1/> AREAS CENTER HOT/COLD PACKS APPLICATI 11527 [facility] CA ON 7 CHIROPRAC CHIROPRAC MODALITY TIC TIC 1/> AREAS CENTER CENTER HOT/COLD PACKS MANUAL 29622 [facility] J[facility]IE THERAPY 7 CHIROPRAC TQS 1/> TIC REGIONS CENTER [place] [address] [facility] FELICIANO 1/> AREAS 7 CHIROPRAC EACH 15 TIC MINUTES CENTER MASSAGE CHIROPRAC 28151 [facility] FELICIANO TIC 7 [facility] MANIPULAT TIC [facility] SPINAL 3-4 REGIONS CHIROPRAC 68433 [facility] FELICIANO TIC 7 CH[facility]OPR[facility] MANIPLTV TIC TX CENTER EXTRASPIN AL 1/> REGION APPL 87902 [facility] PARKER MODALITY 7 CHIROPRAC 1/> AREAS TIC TRACTION CENTER MECHANICA L APPL 73960 [facility] FELICIANO MODALITY 7 CHIROPRAC 1/> AREAS TIC ELEC CENTER STIMJ UNATTENDE D APPL 69620 [facility] MODALITY 7 CHIROPRAC 1/> AREAS TIC ELEC CENTER STIMJ UNATTENDE D APPL 66583 [facility] MOD[facility] 7 CHIROPRAC 1/> AREAS TIC TRACTION CENTER MECHANICA L CHIROPRAC 37614 [facility] [place] TIC 7 CHIROPRAC MANIPLTV TIC TX CENTER EXTRASPIN AL 1/> REGION CHIROPRAC 84728 [facility] TIC 7 [facility] MANIPULAT TIC [facility] SPINAL 3-4 REGIONS MANUAL 24544 [facility] THERAPY 7 CHIROPRAC TQS 1/> TIC REGIONS CENTER EACH 15 MINUTES APPLICATI 76581 [facility] CA ON 7 CHIROPRAC CHIROP[facility]AC MODALITY TIC TIC 1/> AREAS CENTER CENTER HOT/COLD PACKS APPLICATI 07868 [facility] FELICIANO ON 7 CHIROPRAC MODALITY TIC 1/> AREAS CENTER [place] [address] [facility] FELICIANO 1/> AREAS 7 [facility]OPRAC EACH 15 TIC MINUTES CENTER MASSAGE [facility]OP[facility]AC 39488 [facility] TIC 7 [facility] MANIPULAT TIC [facility] SPINAL 3-4 REGIONS CHIROPRAC 03336 [facility] PARK[facility] TIC 7 CHIROPRAC MANIPLTV TIC TX CENTER EXTRASPIN AL 1/> REGION APPL 60402 [place] [facility] MODALITY 7 CHIROPRAC CHIROPRAC 1/> AREAS TIC TIC TRACTION CENTER CENTER MECHANICA L APPL 29276 [facility] MODALITY 7 CHIROPRAC 1/> AREAS TIC ELEC CENTER STIMJ UNATTENDE D APPL 19680 [facility] MODALITY 7 CHIROPRAC 1/> AREAS TIC ELEC CENTER STIMJ UNATTENDE D APPL 48135 [place] MODALITY 7 CHIROPRAC 1/> AREAS TIC TRACTION CENTER MECHANICA L CHIROPRAC 82201 [facility] P[facility] TIC 7 CHIROPRAC MANIPLTV TIC TX CENTER EXTRASPIN AL 1/> REGION CHIROPRAC 35763 [place] TIC 7 [facility] MANIPULAT TIC [facility] SPINAL 3-[place] [address] [facility] JODIE 1/> AREAS 7 CHIROPRAC EACH 15 TIC MINUTES CENTER MASSAGE APPLICATI 95513 [facility] [place] 7 [facility] MODALITY TIC 1/> AREAS CENTER HOT/COLD PACKS APPLICATI 08630 [facility] P[facility] ON 7 CH[facility]OP[facility]AC MODALITY TIC 1/> AREAS CENTER [place] [address] [facility] P[facility] 1/> AREAS 7 [facility]RAC EACH 15 TIC MINUTES CENTER MASSAGE [facility]OP[facility]AC 35796 [facility] TIC 7 [facility] MANIPULAT TIC [facility] SPINAL 3-4 REGIONS CHIROPRAC 96666 [facility] TIC 7 CHIROPR[facility] MANIPLTV TIC TX CENTER EXTRASPIN AL 1/> REGION THERAPEUT 42306 [facility] IC PX 1/> 7 [facility] AREAS TIC EACH 15 CENTER MIN EXERCISES APPL 50493 [place] MODALITY 7 CHIROPRAC 1/> AREAS TIC TRACTION CENTER MECHANICA L APPL 41771 [facility] JODIE MODALITY 7 CHIROPRAC 1/> AREAS TIC ELEC CENTER STIMJ UNATTENDE D APPL 82585 [facility] L[facility] MODALITY 7 CHIROPRAC 1/> AREAS TIC ELEC CENTER STIMJ UNATTENDE D SELF-CARE 79808 [facility] LU /HOME 7 CHIROPRAC MGMT TIC TRAINING CENTER EACH 15 MINUTES APPL 72918 [facility] L[place] MODALITY 7 CHIROPRAC 1/> AREAS TIC TRACTION CENTER MECHANICA L CHIROPRAC 56106 [facility] [place] TIC 7 CHIROPRAC MANIPLTV TIC TX CENTER EXTRASPIN AL 1/> REGION CHIROPRAC 30040 [facility] PHILLIPS TIC 7 CHIROPR[facility] MANIPULAT TIC [facility] SPINAL 3-4 [place] [address] [facility] 1/> AREAS 7 CHIROPRAC EACH 15 TIC MINUTES CENTER MASSAGE APPLICATI 36968 [facility] PHILLIPS ON 7 CHIROPRAC MODALITY TIC 1/> AREAS CENTER HOT/COLD PACKS APPLICATI 36164 [facility] FELICIANO ON 7 CHIROPRAC MODALITY TIC 1/> AREAS CENTER [place] [address] [facility] JODIE 1/> AREAS 7 CHIROPRAC EACH 15 TIC MINUTES CENTER MASSAGE [facility]OP[facility]AC 96234 [facility] TIC 7 [facility] MANIPULAT TIC [facility] SPINAL 3-4 REGIONS CHIROPRAC 88113 [facility] P[facility] TIC 7 CHIROPRAC MANIPLTV TIC TX CENTER EXTRASPIN AL 1/> REGION SELF-CARE 00942 [facility] J[facility] /HOME 7 CH[facility] MGMT TIC TRAINING CENTER EACH 15 MINUTES APPL 73297 [facility] MODALITY 7 CHIROPRAC 1/> AREAS TIC ELEC CENTER STIMJ UNATTENDE D NONEMERGE A0100 LKLP CAC BENNETTS NCY 6 INC TRANSPORT TRANSPORT REGION 9 ATION CO ATION; L TAXI CHIROPRAC 63340 [facility] BAÑUELOS TIC 6 CH[facility] MANIPULAT TIC [facility] SPINAL 3-4 REGIONS CHIROPRAC 68585 [facility] LARSEN TIC 6 CHIROPRAC MANIPLTV TIC TX CENTER EXTRASPIN AL 1/> REGION THERAPEUT 10090 [facility] BAÑUELOS IC PX 1/> 6 CHIROPRAC AREAS TIC EACH 15 CENTER MIN EXERCISES THERAPEUT 07529 [facility] BAÑUELOS IC PX 1/> 6 CHIROPRAC AREAS TIC EACH 15 CENTER MIN EXERCISES CHIROPRAC 56002 [facility] BAÑUELOS TIC 6 CHIROPRAC MANIPLTV TIC TX CENTER EXTRASPIN AL 1/> REGION CHIROPRAC 10362 [facility] BAÑUELOS TIC 6 CHIROPRAC MANIPULAT TIC [facility] SPINAL 3-4 REGIONS APPL 68715 [facility] CA MODALITY 6 CHIROPRAC CHIROPRAC 1/> AREAS TIC TIC ELEC CENTER [place] [address] THE THE PARATHORM [address] [place] [address] COMPREHEN 96831 THE THE SIVE [address] [place] [address] PANEL COLLECTIO 45104 THE THE N VENOUS [address] [place] [address] [place] [address] THE THE LIPASE [address] [place] [address] [place] [id number] THE THE AMYLASE [address] [place] [address] [place] [address] THE THE FREE [address] [place] [address] THYRO[place] [facility] [place] [address] THE THE THYROID [address] [place] [address] NG HORMONE TSH BLOOD 06880 THE THE COUNT [address] [place] [address] AUTOMATED HEMOGLOBI 94446 THE THE N 6 [facility] YVETTE A1C CALCIUM 37609 THE THE IONIZED [address] [place] [address] CHIROPRAC 63083 [facility] BAÑUELOS TIC 6 CHIROP[facility]AC MANIPULAT TIC [facility] SPINAL 3-4 REGIONS CHIROPRAC 35584 [facility] BAÑUELOS TIC 6 CHIROPRAC MANIPLTV TIC TX CENTER EXTRASPIN AL 1/> REGION THERAPEUT 31735 LAN[facility] BAÑUELOS IC PX 1/> 6 CHIROPRAC AREAS TIC EACH 15 CENTER MIN EXERCISES APPL 82716 [facility] MOD[facility]ITY 6 CHIROPRAC CHIROPRAC 1/> AREAS TIC TIC TRACTION CENTER CENTER MECHANICA L APPL 86161 [facility] CH[facility]AC CHIROPRAC 1/> AREAS TIC TIC TRACTION CENTER CENTER MECHANICA L THERAPEUT 64861 [facility] BA[facility]UELOS IC PX 1/> 6 CH[facility]OPRAC AREAS TIC EACH 15 CENTER MIN EXERCISES CHIROPRAC 17373 [facility] BAÑUELOS TIC 6 CHIROPRAC MANIPLTV TIC TX CENTER EXTRASPIN AL 1/> REGION CHIROPRAC 05942 [facility] TIC 6 CHIROPRAC MANIPULAT TIC [facility] SPINAL 3-4 REGIONS CHIROPRAC 55405 [facility] BA[facility] TIC 6 CHIROPRAC MANIPULAT TIC [facility] SPINAL 3-4 REGIONS THERAPEUT 23565 [facility] BA[facility]UELOS IC PX 1/> 6 [facility]OP[facility]AC AREAS TIC EACH 15 CENTER MIN EXERCISES CHIROPRAC 20966 [facility] TIC 6 CHIROPRAC MANIPLTV TIC TX CENTER EXTRASPIN AL 1/> REGION APPL 24761 [facility] MODALITY 6 CHIROPRAC CHIROPRAC 1/> AREAS TIC TIC TRACTION CENTER CENTER MECHANICA L APPL 79733 [facility] MODALITY 6 CHIROPRAC 1/> AREAS TIC ELEC CENTER STIMJ UNATTENDE D SELF-CARE 85460 [facility] BA[facility] /HOME 6 CH[facility] MGMT TIC TRAINING CENTER EACH 15 MINUTES THERAPEUT 82743 [facility] IC PX 1/> 6 [facility] CH[facility]OPRAC AREAS TIC TIC EACH 15 CENTER CENTER MIN EXERCISES CHIROPRAC 60769 [facility] TIC 6 CHIR[facility]AC MANIPLTV TIC TX CENTER EXTRASPIN AL 1/> REGION CHIROPRAC 76394 [facility] TIC 6 CHIROPR[facility] MANIPULAT TIC [facility] SPINAL 3-4 REGIONS SURGICAL L3260 ADVANCED ADVANCED BOOT/SHOE 6 TECHNOLOG TECHNOLOG EACH IES INC IES INC RADIOLOGI 38544 [place] RICHARDSON ALL C 6 MEDICAL EXAMINATI IMAGING ON FOOT 2 ASS VIEWS APPL 53010 [place] [facility] BERNSTEIN 6 CHIROPRAC CHIROPRAC 1/> AREAS TIC TIC ELEC CENTER CENTER STIMJ UNATTENDE D [facility]AC 57618 [facility] TIC 6 [facility] MANIPULAT TIC [facility] SPINAL 3-4 REGIONS CHIROPRAC 07226 [facility] TIC 6 CHIR[facility] MANIPLTV TIC TX CENTER EXTRASPIN AL 1/> REGION THERAPEUT 47038 [place] EDDA IC PX 1/> 6 [facility] AREAS TIC EACH 15 CENTER MIN EXERCISES THERAPEUT 58354 [place] [facility]URTISTXRAY IC PX 1/> 6 [facility]IROP[facility] CHIROPRAC AREAS TIC TIC EACH 15 CENTER CENTER MIN EXERCISES CHIROPRAC 26398 [place] [facility] TIC 6 [facility] GAR MANIPLTV TIC TX CENTER EXTRASPIN AL 1/> REGION CHIROPRAC 47174 [place] [facility] TIC 6 [facility] GAR MANIPULAT TIC [facility] SPINAL 3-4 REGIONS CHIROPRAC 35658 [place] [facility] TIC 6 CH[facility] MANIPLTV TIC TX CENTER EXTRASPIN AL 1/> REGION THERAPEUT 07612 [place] [facility] IC PX 1/> 6 [facility] AREAS TIC EACH 15 CENTER MIN EXERCISES CHIROPRAC 94348 [place] [facility] TIC 6 [facility] MANIPULAT TIC [facility] SPINAL 3-4 REGIONS CHIROPRAC 18006 [place] ED[facility] TIC 6 [facility]OP[facility] MANIPULAT TIC [facility] SPINAL 3-4 REGIONS THERAPEUT 82861 [place] RILEY IC PX 1/> 6 [facility] AREAS TIC EACH 15 CENTER MIN EXERCISES CHIROPRAC 93840 [facility] TIC 6 CHIROPRAC CHIROPRAC MANIPLTV TIC TIC TX CENTER CENTER EXTRASPIN AL 1/> REGION APPL 28319 [place] [facility] MODALITY 6 CHIROPRAC 1/> AREAS TIC TRACTION CENTER MECHANICA L CHIROPRAC 45690 [place] [facility] TIC 6 [facility] MANIPLTV TIC TX CENTER EXTRASPIN AL 1/> REGION THERAPEUT 59320 [facility] IC PX 1/> 6 CHIROPRAC CHIROPRAC AREAS TIC TIC EACH 15 CENTER CENTER MIN EXERCISES CHIROPRAC 23060 [place] [facility] TIC 6 [facility] MANIPULAT TIC [facility] SPINAL 3-4 REGIONS BASIC 10712 [facility] METABOLIC 6 Y Y PANEL [facility] CALCIUM TOTAL THROMBOPL 49052 [facility] ASTIN 6 Y Y TIME [facility] PARTIAL PLASMA/WH OLE BLOOD COLLECTIO 06348 [facility] N VENOUS 6 Y Y BLOOD [facility] VENIPUNCT URE PROTHROMB 88798 [facility] IN TIME 6 Y Y [facility] BLOOD 62627 [facility] COUNT 6 Y Y COMPLETE [facility] AUTOMATED MANUAL 05360 [facility] THERAPY 6 CHIROPRAC CHIROPRAC TQS 1/> TIC TIC REGIONS CENTER CENTER EACH 15 MINUTES CHIROPRAC 50334 [place] [facility] TIC 6 [facility] GAR MANIPLTV TIC TX CENTER EXTRASPIN AL 1/> REGION CHIROPRAC 11303 [place] [facility] TIC 6 [facility] GAR MANIPULAT TIC [facility] SPINAL 3-4 REGIONS THERAPEUT 04246 [facility] IC PX 1/> 6 [facility]IROPR[facility] CHIROPRAC AREAS TIC TIC EACH 15 CENTER CENTER MIN EXERCISES CHIROPRAC 83525 [place] [facility] TIC 6 CH[facility]RAC MANIPLTV TIC TX CENTER EXTRASPIN AL 1/> REGION MANUAL 87126 [place] [facility] THERAPY 6 CHIROPRAC TQS 1/> TIC REGIONS CENTER EACH 15 MINUTES CHIROPRAC 55048 [place] [facility] TIC 6 [facility] MANIPULAT TIC [facility] SPINAL 1-2 REGIONS THERAPEUT 73873 [facility] IC PX 1/> 6 CHIROPRAC CHIROPRAC AREAS TIC TIC EACH 15 CENTER CENTER MIN EXERCISES CHIROPRAC 74757 [facility] BAÑUELOS TIC 6 CHIROPRAC GAR MANIPLTV TIC TX CENTER EXTRASPIN AL 1/> REGION CHIROPRAC 39708 [facility] BAÑUELOS TIC 6 CHIROPRAC GAR MANIPULAT TIC [facility] SPINAL 3-4 REGIONS CHIROPRAC 60934 [facility] BAÑUELOS TIC 6 CHIROPRAC MANIPLTV TIC TX CENTER EXTRASPIN AL 1/> REGION THERAPEUT 41970 [facility] BA[facility]UELOS IC PX 1/> 6 CHIROPRAC AREAS TIC EACH 15 CENTER MIN EXERCISES CHIROPRAC 26770 [facility] BAÑUELOS TIC 6 [facility]IROPR[facility] MANIPULAT TIC [facility] SPINAL 3-4 REGIONS APPL 83247 [facility] MODALITY 6 CHIROPRAC CHIROPRAC 1/> AREAS TIC TIC TRACTION CENTER CENTER MECHANICA L APPL 32773 [facility] MODALITY 6 CHIROPRAC CHIROPRAC 1/> AREAS TIC TIC TRACTION CENTER CENTER MECHANICA L THERAPEUT 82651 [facility] IC PX 1/> 6 [facility]OP[facility] GAR AREAS TIC EACH 15 CENTER MIN EXERCISES CHIROPRAC 62145 [facility] TIC 6 CH[facility] GAR MANIPLTV TIC TX CENTER EXTRASPIN AL 1/> REGION CHIROPRAC 89102 [facility] BAÑUELOS TIC 6 CHIROPRAC GAR MANIPULAT TIC [facility] SPINAL 3-4 REGIONS CHIROPRAC 62327 [facility] TIC 6 CHIROPRAC GAR MANIPLTV TIC TX CENTER EXTRASPIN AL 1/> REGION THERAPEUT 23841 [facility] IC PX 1/> 6 [facility]OPRAC GAR AREAS TIC EACH 15 CENTER MIN EXERCISES CHIROPRAC 76729 [facility] TIC 6 CHIROPR[facility] GAR MANIPULAT TIC [facility] SPINAL 3-4 REGIONS APPL 54398 [facility] A[facility] MODALITY 6 CHIROPRAC CHIROPRAC 1/> AREAS TIC TIC TRACTION CENTER CENTER MECHANICA L CHIROPRAC 96435 [facility] TIC 6 CHIROP[facility]AC MANIPULAT TIC [facility] SPINAL 3-4 REGIONS MANUAL 04548 [facility] THERAPY 6 CHIROPRAC TQS 1/> TIC REGIONS CENTER EACH 15 MINUTES THERAPEUT 18074 [facility] CA IC PX 1/> 6 CHIROPRAC CHIROPRAC AREAS TIC TIC EACH 15 CENTER CENTER MIN EXERCISES CHIROPRAC 54931 [facility] BAÑUELOS TIC 6 CHIROPRAC MANIPLTV TIC TX CENTER EXTRASPIN AL 1/> REGION CHIROPRAC 26132 [facility] BAÑUELOS TIC 6 CHIROPRAC MANIPLTV TIC TX CENTER EXTRASPIN AL 1/> REGION THERAPEUT 17952 [facility] IC PX 1/> 6 [facility]OP[facility] CHIROPRAC AREAS TIC TIC EACH 15 CENTER CENTER MIN EXERCISES MANUAL 09842 [place] [facility] THERAPY 6 CHIROPRAC TQS 1/> TIC REGIONS CENTER EACH 15 MINUTES CHIROPRAC 01285 [facility] TIC 6 CHIROP[facility] MANIPULAT TIC [facility] SPINAL 3-4 REGIONS MANUAL 29199 [facility] THERAPY 6 CHIROPRAC TQS 1/> TIC REGIONS CENTER EACH 15 MINUTES CHIROPRAC 92234 [facility] BAÑUELOS TIC 6 CHIROPR[facility] MANIPULAT TIC [facility] CENTER SPINAL 3-4 REGIONS CHIROPRAC 09823 [facility] BAÑUELOS TIC 6 CHIROPRAC MANIPLTV TIC TX CENTER EXTRASPIN AL 1/> REGION THERAPEUT 46931 [facility] IC PX 1/> 6 CHIROPR[facility] CHIROPRAC AREAS TIC TIC EACH 15 CENTER CENTER MIN EXERCISES THERAPEUT 05079 [facility] IC PX 1/> 6 CHIROPRAC CHIROPRAC AREAS TIC TIC EACH 15 CENTER CENTER MIN EXERCISES CHIROPRAC 46612 [facility] TIC 6 CHIROPRAC MANIPLTV TIC TX CENTER EXTRASPIN AL 1/> REGION CHIROPRAC 53210 [facility] TIC 6 CHIROP[facility] MANIPULAT TIC [facility] CENTER SPINAL 3-4 REGIONS MANUAL 16054 [place] [facility] THERAPY 6 CHIROPRAC TQS 1/> TIC REGIONS CENTER EACH 15 MINUTES MANUAL 67644 [place] EDDA THERAPY 6 CHIROPRAC GAR TQS 1/> TIC REGIONS CENTER EACH 15 MINUTES CHIROPRAC 18517 [facility] BAÑUELOS TIC 6 CHIROPR[facility] GAR MANIPLTV TIC TX CENTER EXTRASPIN AL 1/> REGION THERAPEUT 60967 [facility] P[facility] 1/> 6 CH[facility]OP[facility] CHIROPRAC AREAS TIC TIC EACH 15 CENTER CENTER MIN EXERCISES CHIROPRAC 63283 [facility] BAÑUELOS TIC 6 CHIROPRAC GAR MANIPULAT TIC B[facility] CENTER SPINAL 3-4 REGIONS THERAPEUT 56344 [facility] IC PX 1/> 6 CH[facility] CHIROPRAC AREAS TIC TIC EACH 15 CENTER CENTER MIN EXERCISES CHIROPRAC 96196 [facility] BAÑUELOS TIC 6 CHIROPRAC MANIPLTV TIC TX CENTER EXTRASPIN AL 1/> REGION MANUAL 35569 [facility] THERAPY 6 CHIROPRAC TQS 1/> TIC REGIONS CENTER EACH 15 MINUTES CHIROPRAC 18700 [facility] TIC 6 CHIROPR[facility] MANIPULAT TIC B[facility] CENTER SPINAL 1-2 REGIONS CHIROPRAC 67312 [facility] BAÑUELOS TIC 6 CHIROPRAC GAR MANIPLTV TIC TX CENTER EXTRASPIN AL 1/> REGION CHIROPRAC 91105 [facility] BA[facility]EL[facility] TIC 6 [facility] GAR MANIPULAT TIC [facility] SPINAL 3-4 REGIONS [facility] 79175 [facility] CHIROPR[facility] MANIPULAT TIC TIC [facility] CENTER SPINAL 3-4 REGIONS CHIROPRAC 69797 [facility] BAÑUELOS TIC 6 CHIROPR[facility] GAR MANIPLTV TIC TX CENTER EXTRASPIN AL 1/> REGION CHIROPRAC 61944 [facility] TIC 5 [facility]OP[facility] GAR MANIPULAT TIC [facility] SPINAL 1-2 REGIONS CHIROPRAC 33045 [facility] EDDA TIC 5 CHIROP[facility] GAR MANIPULAT TIC [facility] SPINAL 1-2 REGIONS CHIROPRAC 63360 [facility] BA[facility]EL[facility] TIC 5 CHIROPRAC GAR MANIPLTV TIC TX CENTER EXTRASPIN AL 1/> REGION THERAPEUT 77109 [facility] IC PX 1/> 5 [facility]OP[facility] GAR AREAS TIC EACH 15 CENTER MIN EXERCISES THERAPEUT 93675 [facility] PX 1/> 5 [facility] GAR AREAS TIC EACH 15 CENTER MIN EXERCISES [facility] 97833 [facility] 5 [facility] CHIROPRAC MANIPLTV TIC TIC TX CENTER CENTER EXTRASPIN AL 1/> REGION [facility] 58943 [facility] 5 [facility] CHIROPRAC MANIPULAT TIC TIC [facility] CENTER SPINAL 1-2 REGIONS [facility]OP[facility]AC 04908 [facility] T[facility] 5 CHIROPR[facility] GAR MANIPLTV TIC TX CENTER EXTRASPIN AL 1/> REGION [facility]OP[facility]AC 51920 [facility] T[facility] 5 [facility] GAR MANIPULAT TIC [facility] SPINAL 3-4 REGIONS RADEX 29297 RADIOLOGY BRANDSER FOOT 5 SHEA COMPLETE ASSOCIATE MINIMUM 3 S OF NOTH VIEWS [facility]OP[facility]AC 59781 [facility] CH[facility]OP[facility] MANIPULAT TIC TIC [facility] CENTER SPINAL 1-2 REGIONS [facility]OP[facility]AC 70623 [facility] T[facility] 5 CH[facility] GAR MANIPLTV TIC TX CENTER EXTRASPIN AL 1/> REGION THERAPEUT 49512 [facility] PX 1/> 5 [facility] GAR AREAS TIC EACH 15 CENTER MIN EXERCISES THERAPEUT 74546 [facility] PX 1/> 5 [facility] GAR AREAS TIC EACH 15 CENTER MIN EXERCISES [facility]OP[facility]AC 19700 [facility] T[facility] 5 CH[facility]OP[facility] GAR MANIPLTV TIC TX CENTER EXTRASPIN AL 1/> REGION CHIROPRAC 60285 [facility] T[facility] 5 [facility] GAR MANIPULAT TIC [facility] SPINAL 1-2 REGIONS CHIROPRAC 66310 [facility] CHIROP[facility] MANIPULAT TIC TIC [facility] CENTER SPINAL 1-2 REGIONS CHIROPRAC 74877 [facility] 5 [facility] GAR MANIPLTV TIC TX CENTER EXTRASPIN AL 1/> REGION THERAPEUT 55845 [facility] IC PX 1/> 5 [facility] AREAS TIC EACH 15 CENTER MIN EXERCISES THERAPEUT 75643 [facility] PX 1/> 5 [facility] GAR AREAS TIC EACH 15 CENTER MIN EXERCISES [facility] 48558 [facility] 5 [facility] CHIROPRAC MANIPLTV TIC TIC TX CENTER CENTER EXTRASPIN AL 1/> REGION [facility] 52233 [facility] 5 [facility] CHIROPR[facility] MANIPULAT TIC TIC [facility] CENTER SPINAL 1-2 REGIONS [facility]OP[facility]AC 15390 [facility] 5 [facility] CHIROPR[facility] MANIPULAT TIC TIC [facility] CENTER SPINAL 1-2 REGIONS [facility]OPRAC 65553 [facility] CHIROPR[facility] MANIPLTV TIC TIC TX CENTER CENTER EXTRASPIN AL 1/> REGION CHIROPRAC 15835 [facility] T[facility] 5 CHIROPR[facility] GAR MANIPLTV TIC TX CENTER EXTRASPIN AL 1/> REGION CHIROPRAC 30759 [facility] T[facility] 5 [facility] GAR MANIPULAT TIC [facility] SPINAL 1-2 REGIONS CHIROPRAC 61923 [facility] 5 [facility] GAR MANIPULAT TIC [facility] SPINAL 1-2 REGIONS CHIROPRAC 37985 [facility] 5 CHIROP[facility] GAR MANIPLTV TIC TX CENTER EXTRASPIN AL 1/> REGION CHIROPRAC 89656 [facility] 5 CHIROP[facility] GAR MANIPLTV TIC TX CENTER EXTRASPIN AL 1/> REGION CHIROPRAC 36440 [facility] 5 [facility] GAR MANIPULAT TIC [facility] SPINAL 1-2 REGIONS CHIROPRAC 45263 [facility] T[facility] 5 [facility] GAR MANIPULAT TIC [facility] SPINAL 1-2 REGIONS [facility]AC 56529 [facility] GAR MANIPLTV TIC TX CENTER EXTRASPIN AL 1/> REGION THERAPEUT 11336 [facility]ÑUELOS IC PX 1/> 5 [facility]OPR[facility] GAR AREAS TIC EACH 15 CENTER MIN EXERCISES CHIROPRAC 15993 [facility] TIC 5 CHIROPR[facility] GAR MANIPLTV TIC TX CENTER EXTRASPIN AL 1/> REGION CHIROPRAC 95642 [facility] TIC 5 CHIROPRAC GAR MANIPULAT TIC [facility] SPINAL 1-2 REGIONS THERAPEUT 17346 [facility] BAÑUELOS IC PX 1/> 5 CHIROPRAC GAR AREAS TIC EACH 15 CENTER MIN EXERCISES THERAPEUT 62178 LANNY BAÑUELOS IC PX 1/> 5 CHIROPRAC GAR AREAS TIC EACH 15 CENTER MIN EXERCISES CHIROPRAC 63177 LANNY BAÑUELOS TIC 5 CHIROPRAC GAR MANIPULAT TIC BEN TX CENTER SPINAL 1-2 REGIONS CHIROPRAC 35859 KURTISNAYANA BAÑUELOS TIC 5 CHIROPRAC GAR MANIPLTV TIC TX CENTER EXTRASPIN AL 1/> REGION CHIROPRAC 25241 LANNY BAÑUELOS TIC 5 CHIROPRAC GAR MANIPLTV TIC TX CENTER EXTRASPIN AL 1/> REGION CHIROPRAC 57559 LANNY BAÑUELOS TIC 5 CHIROPRAC GAR MANIPULAT TIC BEN TX CENTER SPINAL 1-2 REGIONS THERAPEUT 87131 LANNY BAÑUELOS IC PX 1/> 5 CHIROPRAC GAR AREAS TIC EACH 15 CENTER MIN EXERCISES CHIROPRAC 63565 KURTISNAYANA EDDA TIC 5 CHIROPRAC GAR MANIPLTV TIC TX CENTER EXTRASPIN AL 1/> REGION CHIROPRAC 60132 LANNY EDDA TIC 5 CHIROPRAC GAR MANIPULAT TIC BEN [place] CENTER SPINAL 1-2 REGIONS CHIROPRAC 65904 LANNY CA TIC 5 CHIROPRAC CHIROPRAC MANIPULAT TIC TIC BEN [place] CENTER CENTER SPINAL 1-2 REGIONS CHIROPRAC 79491 KURTISNAYANA EDDA TIC 5 CHIROPRAC GAR MANIPLTV TIC TX CENTER EXTRASPIN AL 1/> REGION CHIROPRAC 82514 LANNY BAÑUELOS TIC 5 CHIROPRAC GAR MANIPULAT TIC BEN TX CENTER SPINAL 3-4 REGIONS CHIROPRAC 21226 LANNY BAÑUELOS TIC 5 CHIROPRAC GAR MANIPULAT TIC BEN TX CENTER SPINAL 1-2 REGIONS CHIROPRAC 10154 LANNY BAÑUELOS TIC 5 CHIROPRAC GAR MANIPULAT TIC BEN [place] CENTER SPINAL 1-2 [facility] RADEX 64233 THALIA CORTEZ KIMBERLEY FOOT 5 MEDICAL COMPLETE IMAGING MINIMUM 3 ASS VIEWS CRTCHS E0114 ADVANCED ADVANCED UNDARM 5 TECHNOLOG TECHNOLOG OTH THAN IES INC IES INC WOOD PAIR PAD TIP&HNDGR IP CHIROPRAC 21493 LANNY BAÑUELOS TIC 5 CHIROPRAC GAR MANIPULAT TIC [facility] [place] SPINAL 1-[address] [place] [address] LUI FINLEY HEAD/BRAI 5 NAL N W/O RADIOLOGY CONTRAST INC. MATERIAL RADIOLOGI 07973 LUI Fischer 5 NAL ADA EXAMINATI RADIOLOGY ON CHEST INC. SINGLE VIEW FRONTAL INITIAL 57489 [place] MANCIA INPATIENT 5 MEDICAL L CONSULT SERV NEW/ESTAB FOUNDATIO PT 80 N MIN UNLISTED 65984 [place] CARRANZA PROCEDURE 5 MEDICAL JUS NERVOUS SERV SYSTEM FOUNDATIO N ANESTHESI 18467 [place] A 5 MEDICAL ZOH INTRACRAN SERVICES IAL VASCULAR PROCEDURE ARTL 75412 [place] CATHJ/CAN 5 MEDICAL ZOH NULJ SERVICES MNTR/GERMAN SFUSION SPX PRQ MICROSURG 90985 [place] TQS REQ 5 MEDICAL JUS USE SERV OPERATING FOUNDATIO N MICROSCOP E CHIROPRAC 25598 COLE DOWNINGESON TIC 5 COL COL MANIPULAT BEN TX SPINAL 1-2 REGIONS APPL 45273 COLE NOLANON MODALITY 5 COL COL 1/> AREAS ELEC STIMJ UNATTENDE D APPL 44904 COLE NOL[place]ON MODALITY 5 COL COL 1/> AREAS TRACTION MECHANICA L ECG 68841 [place] BAYLEE CHI ROUTINE 5 MEDICAL ECG SERV W/LEAST FOUNDATIO 12 LDS N I&R ONLY HOSPITAL 34635 [facility] 5 MEDICAL SHEA DAY SERV MANAGEMEN FOUNDATIO T 30 N MIN/< CANE E0105 PATIENT PATIENT QUAD/3-FL 5 AIDS INC AIDS INC JACIEL ALL MATL ADJUSTBL/ FIX W/TIPS ANKLE L1930 PATIENT PATIENT FOOT 5 AIDS INC AIDS INC ORTHOTIC PLASTIC/O TH MATL PREFAB SBSQ 58350 [place] [address] MEDICAL NAN CARE/DAY SERV 25 FOUNDATIO MINUTES N SBSQ 08474 [place] [address] MEDICAL SHEA CARE/DAY SERV 35 FOUNDATIO MINUTES N SBSQ 24028 [place] [address] MEDICAL SARAH CARE/DAY SERV 25 FOUNDATIO MINUTES N SBSQ 33989 [place] [address] MEDICAL SARAH CARE/DAY SERV 25 FOUNDATIO MINUTES N SBSQ 47168 [place] [address] MEDICAL SARAH CARE/DAY SERV 25 FOUNDATIO MINUTES N SBSQ 42715 [place] [address] MEDICAL SHEA CARE/DAY SERV 25 FOUNDATIO MINUTES N SBSQ 58263 [place] [address] MEDICAL SHEA CARE/DAY SERV 25 FOUNDATIO MINUTES N RADIOLOGI 31127 [facility] [address] RADIOLOGY III ROMARIO EXAMINATI ON CHEST [facility] [address] [place] [address] MEDICAL JOHN DAY SERV MANAGEMEN FOUNDATIO T 30 N MIN/< INITIAL 32559 [place] [address] MEDICAL SHEA CARE/DAY SERV 70 FOUNDATIO MINUTES N SBSQ 49635 [place] [address] MEDICAL JOHN CARE/DAY SERV 25 FOUNDATIO MINUTES N SBSQ 55510 [facility] 5 MEDICAL CARE/DAY SERV 35 FOUNDATIO MINUTES N SLCTV 21841 [facility] 5 MEDICAL ABD CAROTID/I SERV NNOM ART FOUNDATIO ANGIO N INTRCRANL ART SLCTV 85398 OR [facility] CATH 5 MEDICAL ABD VERTEBRAL SERV ART FOUNDATIO ANGIO N VERTEBRAL ARTERY SLCTV 09090 OR [facility] CATH 5 MEDICAL ABD XTRNL SERV CAROTID FOUNDATIO ANGIO N XTRNL CAROTD CIRC SLCTV 86717 [place] ALHAJERI CATH 5 MEDICAL ABD INTRNL SERV CAROTID [place] [address] [place] RASLAU ANGIOGRAP 5 MEDICAL FLA HY NECK SERV W/CONTRAS FOUNDATIO T/[place] [address] [place] SETH KWA ANGIOGRAP 5 MEDICAL HY HEAD SERV W/CONTRAS FOUNDATIO T/NONCONT N RAST ECG 29306 [place] BAYLEE CHI ROUTINE 5 MEDICAL ECG SERV W/LEAST FOUNDATIO 12 LDS N I&R ONLY HEMOGLOBI 78942 UNIVERSIT ERICKA N 5 Y OF EDER FRACTJ/QU [place] [address] [place] RASLAU HEAD/BRAI 5 MEDICAL FLA N W/O SERV CONTRAST FOUNDATIO MATERIAL N MRI BRAIN 33541 [place] ESCOTT BRAIN 5 MEDICAL EDW STEM W/O SERV W/CONTRAS FOUNDATIO T N MATERIAL RADIOLOGI 24387 [place] KOLTON C 5 MEDICAL EITAN EXAMINATI SERV ON CHEST FOUNDATIO SINGLE N VIEW FRONTAL GROUND A0425 [facility] MILEAGE 5 Ada-ISHAN WHITMORE PER CO EMS CO EMS STATUTE MILE AMB A0427 [facility] SERVICE 5 Ada-ISHAN WHITMORE ALS CO EMS CO EMS EMERGENCY TRANSPORT LEVEL 1 CHIROPRAC 21901 COLE COLE TIC 5 COL COL MANIPULAT BEN TX SPINAL 3-4 REGIONS CHIROPRAC 95470 COLE COLE TIC 5 COL COL MANIPLTV TX EXTRASPIN AL 1/> REGION RADEX 09056 COLE COLE SPINE 5 COL COL LUMBOSACR AL 2/3 VIEWS APPL 24300 COLE DOWNINGESON MODALITY 5 COL COL 1/> AREAS TRACTION MECHANICA L APPL 35450 COLE DOWN[place] MODALITY 5 COL COL 1/> [place] [address] [facility] [place] SCALF JOHN ABDOMEN & 4 RADIOLOGY PELVIS W/O CONTRAST MATERIAL BLOOD 58939 [facility] PERIPHERA L INTERP PHYS W/WRIT REPORT ECG 84936 [place] BAYLEE CHI ROUTINE 4 MEDICAL ECG SERV W/LEAST FOUNDATIO 12 LDS N I&R ONLY GROUND A0425 BOB BOB MILEAGE 4 CO CO PER AMBULANCE [place] [address] THALIA COLLIERUTCHER HEAD/BRAI 4 MEDICAL ROYER N W/O IMAGING CONTRAST ASS MATERIAL AMB A0427 BOB BOB SERVICE 4 CO CO ALS AMBULANCE AMBULANCE EMERGENCY TAXIN TAXIN TRANSPORT LEVEL 1 [place] [address] ROSEMARIE HOUSTON 1/> AREAS 4 DONNA DONNA EACH 15 MINUTES MASSAGE CHIROPRAC 17692 ROSEMARIE HOUSTON TIC 4 DONNA DONNA MANIPULAT BEN TX SPINAL 3-4 [facility] 93975 [facility] MEDICINE MANAGEMEN UFPA T 30 MIN/< INITIAL 25642 [facility] NAHUM INPATIENT 4 Medicine JR. KIMBERLEY CONSULT NEW/ESTAB PT 55 MIN INITIAL 95715 [facility] SHAINA INPATIENT 4 Medicine DAM SRI CONSULT NEW/ESTAB PT 80 MIN INITIAL [address] MEDICINE 70 UFPA MINUTES RADIOLOGI 52856 JOSE DIXON C EXAM 4 Radiologi LUCIANO CHEST 2 kristen VIEWS Associate FRONTAL&[place] [address] MADHU DIXON ABDOMEN & 4 Radiologi LUCIANO PELVIS kristen W/O Associate CONTRAST s MATERIAL CHIROPRAC 31650 ROSEMARIE HOUSTON TIC 4 DONNA DONNA MANIPULAT BEN [place] SPINAL 3-4 [place] [address] ROSEMAIRE HOUSTON 1/> AREAS 4 DONNA DONNA EACH 15 MINUTES MASSAGE CHIROPRAC 88766 ROSEMARIE HOUSTON TIC 4 DONNA DONNA MANIPULAT BEN [place] SPINAL 3-4 REGIONS CHIROPRAC 41240 ROSEMARIE HOUSTON TIC 4 DONNA DONNA MANIPULAT BEN [place] SPINAL 3-4 REGIONS THERAPEUT 39214 ROSEMARIE HOUSTON IC PX 1/> 4 DONNA DONNA AREAS EACH 15 MIN EXERCISES HOSPITAL 34565 [facility] 4 EDW EDW DAY MANAGEMEN T 30 MIN/< SBSQ 38906 [facility] 4 EDW EDW CARE/DAY 25 MINUTES SBSQ 97618 [facility] 4 EDW EDW CARE/DAY 25 MINUTES AMBULANCE A0429 BOB BOB SERVICE 4 CO CO BLS AMBULANCE AMBULANCE EMERGENCY TAXIN TAXIN TRANSPORT GROUND A0425 BOB BOB MILEAGE 4 CO CO PER AMBULANCE AMBULANCE STATUTE TAXIN TAXIN MILE INITIAL 51217 [facility] 4 EDW EDW CARE/DAY 50 MINUTES ECG 42430 BROCK BROCK ROUTINE 4 GAR GAR ECG W/LEAST 12 [place] [address] ROSEMARIE HOUSTON 1/> AREAS 4 DONNA DONNA EACH 15 MIN NEUROMUSC REEDUCA CHIROPRAC 36841 ROSEMARIE HOUSTON TIC 4 DONNA DONNA MANIPULAT BEN [place] SPINAL 3-4 [facility] RADEX 15138 [facility]ERS LUBBERS ANKLE 4 WILLI WILLI COMPLETE MINIMUM 3 VIEWS OBSERVATI 90833 [facility] ON CARE 3 LUZ ELENA HUG DISCHARGE PHYSICIAN SERVI MANAGEMEN T SBSQ 80982 [facility] OBSERVATI 3 LUZ ELENA HUG ON PHYSICIAN CARE/DAY SERVI 25 MINUTES INITIAL 14688 [facility] LUZ ELENA HUG ON PHYSICIAN CARE/DAY SERVI 50 MINUTES ECG 30980 CELLAROSI CELLAROSI ROUTINE 3 - YORBA - YORBA ECG PAT PAT W/LEAST 12 LDS I&R ONLY CRITICAL 79732 CELLAROSI CELLAROSI CARE 3 - YORBA - YORBA ILL/INJUR PAT PAT ED PATIENT INIT 30-[place] [address] CEE CEE RETROPERI 3 RHO RHO TONEAL REAL TIME W/IMAGE LIMITED ECG 47126 OZOR MAR OZOR MAR ROUTINE 3 ECG W/LEAST 12 LDS I&R ONLY ECG 30043 MARCO LARA ROUTINE 3 RYA RYA ECG W/LEAST 12 LDS I&R ONLY CT THORAX 20096 CARLINE MENSAH 3 W/[place] [address] [facility] INF[facility]ION [address] [place] [address] THERAPY/P MEDICAL MEDICAL ROPHYLAXI C C S /DX 1ST TO 1 HR INJECTION J1200 [address] DIPHENHYD MEDICAL MEDICAL RAMINE C C HCL UP TO 50 MG INFUSION J7030 [facility]DRENS NORMAL [address] [place] [address] SALINE MEDICAL MEDICAL SOLUTION C C 1000 CC CALCIUM 17756 [facility] CH[facility] IONIZED [address] [place] [address] MEDICAL MEDICAL C C BASIC 08673 [facility] METABOLIC [address] [place] [address] PANEL MEDICAL [place] T[place] [address] [facility] INFUSION [address] [place] [address] THERAPY MEDICAL MEDICAL PROPHYLAX C C IS/DX EA HOUR BLOOD 24192 [facility] COUNT [address] [place] [address] COMPLETE MEDICAL MEDICAL AUTO&AUTO C C DIFRNTL WBC INJ J1557 [facility] IMMUNE [address] [place] [address] GLOBULIN MEDICAL MEDICAL IV C C NONLYOPHI LIZED [address] [place] [address] [facility] GAMMAGLOB [address] [place] [address] ULIN IGA [facility] MEDICAL IGD IGG C C IGM EACH INJ J1720 [facility] HYDROCORT [address] [place] [address] ISONE MEDICAL MEDICAL SODIUM C C SUCCINATE TO 100 [place] [address] [facility] INFUSION [address] [place] [address] THER MEDICAL MEDICAL PROPH C C ADDL SEQUENTIA L TO 1 [place] [address] [facility] LIPASE 3 N N [facility] HOSPITA HOSPITA INJECTION J2405 [facility] 3 N N ONDANSETR [facility] ON HCL HOSPITA HOSPITA PER [address] [place] [address] [facility] AMYLASE 3 N [facility] [place] [address] [facility] INFUSION 3 N N HYDRATION [facility] EACH HOSPITA HOSPITA ADDITIONA L HOUR COLLECTIO 17386 [facility] N VENOUS 3 N N BLOOD [facility] VENIPUNCT HOSPITA HOSPITA URE COMPREHEN 84931 [facility] SIVE 3 N N METABOLIC [facility]UN[facility] PANEL HOSPITA HOSPITA BLOOD 84247 [facility] COUNT 3 N N COMPLETE [facility] AUTOMATED HOSPITA HOSPITA THER 72363 [facility] PROPH/DX 3 N N NJX IV [facility] PUSH HOSPITA HOSPITA SINGLE/1S T SBST/DRUG BLOOD 03600 [facility] COUNT 3 N N SMEAR [facility] MCRSCP HOSPITA HOSPITA W/MNL DIFRNTL WBC COUNT THERAPEUT 35140 [facility] IC 3 N N INJECTION [facility] IV PUSH HOSPITA HOSPITA EACH NEW DRUG URINE 74653 [facility] 3 N N TEST [facility] VISUAL HOSPITA [place] [address] [facility] MAXILLOFA 3 N N CIAL W/O [facility] CONTRAST HOSPITA HOSPITA MATERIAL RADEX 59463 [facility] J[facility] CROWLEY JAM NASAL 3 BONES COMPLETE MINIMUM 3 VIEWS GROUND A0425 [facility] MILEA 3 N-ISHAN WHITMORE PER CO EMS CO EMS STATUTE MILE AMBULANCE A0429 [facility] SERVICE 3 N-ISHAN WHITMORE BLS CO EMS CO EMS EMERGENCY TRANSPORT GROUND A0425 [facility] MILEA 3 N SCOT T N SCOT T PER CO EMS CO EMS STATUTE MILE INITIAL 82311 POLA LAMAR MEÑO INPATIENT 3 HOSP MED CONSULT CTR NEW/ESTAB PT 110 MIN THERAPEUT 49752 [facility] IC 3 N N INJECTION [facility] IV PUSH HOSPITA HOSPITA EACH NEW DRUG CALCIUM 72588 [facility] IONIZED [address] [place] [address] [place] [address] [facility]IL[facility] ESTROGENS [address] [place] [address] TOTAL MEDICAL MEDICAL C C GONADOTRO 38044 [facility] PIN [address] [place] [address] FOLLICLE MEDICAL MEDICAL STIMULATI C C NG HORMONE PROCALCIT 01536 [facility] ONIN [address] [place] [address] (PCT) MEDICAL MEDICAL C C CULTURE 24088 [facility] BACTERIAL [address] [place] [address] MEDICAL MEDICAL QUANTTATI C C VE COLONY COUNT URINE GONADOTRO 76800 [facility] CH[facility] PIN [address] [place] [address] LUTEINIZI MEDICAL [place] [address] [facility] FREE [address] [place] [address] THYROXINE MEDICAL MEDICAL C C CREATININ 29148 [facility] E OTHER [address] [place] [address] HOSPITAL SOURCE MEDICAL MEDICAL C C GLUCOSE 52993 [facility] B[facility] [address] [place] [address] REAGENT MEDICAL MEDICAL STRIP C C URNLS DIP [address] STICK/TAB MEDICAL MEDICAL LET RGNT C C AUTO W/[place] [address] [facility] TH[facility] [address] [place] [address] STIMULATI MEDICAL MEDICAL [place] [address] [facility] RENIN [address] [place] [address] MEDICAL MEDICAL C C GONADOTRO 37229 [facility] PIN [address] [place] [address] CHORIONIC MEDICAL MEDICAL C C QUALITATI VE CULTURE 66348 [facility] BACTERIAL [address] [place] [address] BLOOD MEDICAL MEDICAL AEROBIC C C W/ID ISOLATES INJECTION [id number] CEFTRIAXO MEDICAL MEDICAL NE SODIUM C C PER 250 MG CRITICAL [address] ILL/INJUR MEDICAL MEDICAL ED C C PATIENT INIT 30-74 MIN THER 80304 [facility] PROPH/DX 3 N N NJX IV [facility]ITY [facility] PUSH HOSPITA HOSPITA SINGLE/1S T SBST/DRUG BLOOD 52838 [facility] COUNT 3 N N COMPLETE COMMUNITY COMMUNITY AUTO&AUTO HOSPITA HOSPITA DIFRNTL WBC INJECTION J2405 [facility] 3 N N ONDANSETR [facility]UNITY COMMUNITY ON HCL HOSPITA HOSPITA PER 1 [place] [address] [facility] INFUSION 3 N N HYDRATION COMMUNITY COMMUNITY EACH HOSPITA HOSPITA ADDITIONA L HOUR COMPREHEN 84955 [facility] SIVE 3 N N METABOLIC COMMUNITY COMMUNITY PANEL HOSPITA HOSPITA INJECTION J1561 [facility] IMMUNE [address] [place] [address] GLOBULIN MEDICAL MEDICAL NONLYOPHI C C LIZED [address] [place] [address] [facility] PHOSPHORU [address] [place] [address] S MEDICAL [place] [address] [facility] MAGNESIUM [address] [place] [address] MEDICAL MEDICAL C C BLOOD 74288 [facility] COUNT [address] [place] [address] COMPLETE MEDICAL MEDICAL AUTO&[place] [address] [facility] GAMMAGLOB [address] [place] [address] MEDICAL IGD IGG C C IGM EACH HEPATIC 61329 [facility] FUNCTION [address] [place] [address] [place] [address] [facility] INFUSION [address] [place] [address] HOSPITAL THERAPY MEDICAL MEDICAL PROPHYLAX C C IS/DX EA HOUR BASIC 58643 [facility] METABOLIC [address] [place] [address] PANEL [place]ICAL [place] [address] [facility]PITAL HOSPITAL THERAPY/P MEDICAL MEDICAL ROPHYLAXI C C S /DX 1ST TO 1 [place] [address] [facility] HOSPITAL THERAPY/P MEDICAL MEDICAL ROPHYLAXI C C S /DX 1ST TO 1 HR BASIC 70220 [facility] METABOLIC [address] [place] [address] PANEL MEDICAL [place] [address] [facility]OSPITAL HOSPITAL THERAPY MEDICAL MEDICAL PROPHYLAX C C IS/DX EA HOUR HEPATIC 80878 [facility] FUNCTION [address] [place] [address] [place] [address] [facility] GAMMAGLOB [address] [place] [address] MEDICAL IGD IGG C C IGM EACH BLOOD 86628 [facility] COUNT [address] [place] [address] COMPLETE MEDICAL MEDICAL AUTO&AUTO C C DIFRNTL WBC INJ IG J1569 [facility] GAMMAGARD [address] [place] [address] LIQ IV MEDICAL MEDICAL NONLYOPHI C C LIZED 500 [place] [address] [facility] PHOSPHORU [address] [place] [address] S MEDICAL [place] [address] [facility] CH[facility] MAGNESIUM [address] [place] [address] [place] [address] [facility] MAGNESIUM [address] [place] [address] [place] [address] [facility] PHOSPHORU [address] [place] [address] S MEDICAL MEDICAL INORGANIC C C COLLECTIO 43133 [facility] N VENOUS [address] [place] [address] BLOOD MEDICAL MEDICAL VENIPUNCT C C URE BLOOD 62605 [facility] COUNT [address] [place] [address] COMPLETE MEDICAL MEDICAL AUTO&[place] [address] [facility] GAMMAGLOB [address] [place] [address] MEDICAL IGD IGG C C IGM EACH HEPATIC 20625 [facility] FUNCTION [address] [place] [address] [place] [address] [facility] INFUSION [address] [place] [address] HOSPITAL THERAPY MEDICAL MEDICAL PROPHYLAX C C IS/DX EA HOUR BASIC 63592 [facility] METABOLIC [address] [place] [address] MEDICAL MEDICAL CALCIUM C C TOTAL CALCIUM 29174 [facility] IONIZED [address] [place] [address] [place] [address] [facility]FUSION HOSPITAL HOSPITAL THERAPY/P MEDICAL MEDICAL ROPHYLAXI C C S /DX 1ST TO 1 HR RADIOLOGI 02395 RADIOLOGY DONG C EXAM 3 MEENU CHEST 2 ASSOCIATE VIEWS S OF NOTH FRONTAL&L ATERAL INJ IG J1569 [facility] GAMMAGARD [address] [place] [address] LIQ IV MEDICAL MEDICAL NONLYOPHI C C LIZED [address] [place] [address] [facility] PHOSPHORU [address] [place] [address] MEDICAL [place] [address] [facility] GAMMAGLOB [address] [place] [address] IGD IGG C C IGM EACH BLOOD 17688 [facility] COUNT [address] [place] [address] COMPLETE MEDICAL MEDICAL AUTO&AUTO C C DIFRNTL WBC HEPATIC 45483 [facility] FUNCTION [address] [place] [address] HOSPITAL PAN[place] [address] [facility] MAGNESIUM [address] [place] [address] [place] [address] [facility]PITAL HOSPITAL THERAPY/P MEDICAL MEDICAL ROPHYLAXI C C S /DX 1ST TO 1 HR CALCIUM 79140 [facility] IONIZED [address] [place] [address] MEDICAL MEDICAL C C BASIC 05290 [facility] METABOLIC [address] [place] [address] PANEL MEDICAL [place] [address] [facility] INFUSION [address] [place] [address] THERAPY MEDICAL MEDICAL PROPHYLAX C C IS/DX [facility] 66[address] [facility] DISCHARGE 3 Y OF ALONZO DAY [place] MANAGEMEN I PHY T 30 MIN/< SBSQ 80023 [facility] 3 Y OF TORSTEN CARE/DAY [place] 25 I PHY MINUTES SBSQ 84751 [facility] 3 Y OF ALONZO CARE/DAY [place] 25 I PHY MINUTES SBSQ 36405 [facility] 3 Y OF ALONZO CARE/DAY [place] 25 I PHY MINUTES DXA BONE 19952 [facility] DENSITY 3 Y OF BRU STUDY 1/> [place] SITES I PHY AXIAL SKEL SBSQ 23846 [facility] 3 Y OF ALONZO CARE/DAY [place] 35 I PHY MINUTES SBSQ [address]02 [facility] 3 Y OF ALONZO CARE/DAY [place] 25 I PHY MINUTES INITIAL 54152 [facility] INPATIENT 3 Y OF TORSTEN CONSULT [place] NEW/ESTAB I PHY PT [address] [facility] 3 Y OF ALONZO CARE/DAY [place] 70 I PHY MINUTES RADIOLOGI 14903 [facility] EXAM 3 Y OF MEENU CHEST 2 [place] VIEWS I PHY FRONTAL&L ATERAL INJECTION [id number] [facility] CALCIUM [address] [place] [address] GLUCONATE MEDICAL MEDICAL PER 10 C C ML 5% [id number] [facility] DEXTROSE/ [address] [place] [address] [facility]ATER [facility] C C HEPATIC 63587 [facility] CH[facility] FUNCTION [address] [place] [address] PANEL MEDICAL MEDICAL C C THERAPEUT 63834 [facility]DR[facility] CHILDRENS IC PX 1/> [address] [place] [address] AREAS MEDICAL MEDICAL EACH 15 C C MIN EXERCISES THER 10166 [facility] PROPH/DX [address] [place] [address] NJX IV MEDICAL MEDICAL PUSH C C SINGLE/1S T SBST/DRUG RENAL 84949 [facility] FUNCTION 3 [facility] PANEL MEDICAL MEDICAL C C NONINVASI 65542 [facility] VE [address] [place] [address] EAR/PULSE MEDICAL MEDICAL OXIMETRY [place] [address] [facility] MAGNESIUM [address] [place] [address] MEDICAL MEDICAL C C CALCIUM 44633 [facility] CH[facility] IONIZED [address] [place] [address] MEDICAL MEDICAL C C ORTHOTIC 45410 [facility] MGMT&GILBERT [address] [place] [address] [place] UXTR MEDICAL MEDICAL LXTR&/TRN C C K EA 15 THERAPEUT 40702 [facility] ACTVITY [address] [place] [address] DIRECT PT MEDICAL MEDICAL CONTACT C C EACH 15 MIN GROUND [id number] [facility]LEAGE 3 [facility] [place] [address] [facility] INFUSION [address] [place] [address] THERAPY/P MEDICAL MEDICAL ROPHYLAXI C C S /DX 1ST TO 1 HR CALCIUM 36385 [facility] IONIZED [address] [place] [address] [place] [address] [facility] INFUSION [address] [place] [address] THERAPY MEDICAL MEDICAL PROPHYLAX C C IS/DX EA HOUR BASIC 11405 [facility] METABOLIC [address] [place] [address] PANEL MEDICAL MED[place] [address] [facility] MAGNESIUM [address] [place] [address] [place] [address] [facility] CH[facility] PHOSPHORU [address] [place] [address] S MEDICAL MEDICAL INORGANIC C C COLLECTIO 51654 [facility] CH[facility] N VENOUS [address] [place] [address] BLOOD MEDICAL MEDICAL VENIPUNCT C C URE PHYSICAL 41470 [facility] THERAPY [address] [place] [address] EVALUATIO MEDICAL MEDICAL N C C INJ IG J1569 [facility] GAMMAGARD [address] [place] [address] LIQ IV MEDICAL MEDICAL NONLYOPHI C C LIZED [address] [place] [address] [facility] GAMMAGLOB [address] [place] [address] ULIN IGA MEDICAL MEDICAL IGD IGG C C IGM EACH CYCLIC 81035 [facility] [place] [address] [place] [address] ATED MEDICAL MEDICAL PEPTIDE C C ANTIBODY BLOOD 14023 [facility] COUNT [address] [place] [address] COMPLETE MEDICAL MEDICAL AUTO&AUTO C C DIFRNTL WBC INJ IG J1569 [facility] GAMMAGARD [address] [place] [address] LIQ IV MEDICAL MEDICAL NONLYOPHI C C LIZED [address] [place] [address] [facility] GAMMAGLOB [address] [place] [address] ULIN IGA MEDICAL MEDICAL IGD IGG C C IGM EACH RHEUMATOI 33362 [facility] D FACTOR 2 [facility] QUANTITAT MEDICAL MEDICAL BEN C C EXTRACTAB 69767 [facility] LE [address] [place] [address] NUCLEAR MEDICAL MEDICAL ANTIGEN C C ANTIBODY ANY METHOD HEPATIC 65464 [facility] FUNCTION 2 [facility] PANEL MEDICAL MEDICAL C C RADEX 47910 [facility] CH[facility] SPINE [address] [place] [address] LUMBOSACR MEDICAL MEDICAL AL /3 C C VIEWS C-REACTIV 20068 [facility]ILDREN CHILDRENS E PROTEIN [address] [place] [address] MEDICAL MEDICAL C C RADEX 08932 [facility]ILDRENS HAND [address] [place] [address] [place] [address] CHILDREN CHILDRENS PHOSPHORU [address] [place] [address] S MEDICAL [place] [address] [facility]EN CHILDRENS MAGNESIUM [address] [place] [address] MEDICAL MEDICAL C C BASIC 55489 [facility] METABOLIC [address] [place] [address] PANEL MEDICAL MEDICAL CALCIUM C C TOTAL SEDIMENTA 22838 CHILDREN CHILDRENS TION RATE [address] [place] [address] [place] [address] [facility] INFUSION [address] [place] [address] HOSPITAL THERAPY MEDICAL MEDICAL PROPHYLAX C C IS/DX EA HOUR CALCIUM 73489 [facility]ILDREN CHILDREN IONIZED 2 [facility] [place] [address] CHILDREN CHILDREN INFUSION 2 [facility] THERAPY/P MEDICAL MEDICAL ROPHYLAXI C C S /DX 1ST TO 1 HR RADIOLOGI 48217 [facility] CHILDREN C [address] [place] [address] EXAMINATI MEDICAL MEDICAL ON KNEE C C / [place] [address] CHILDREN CHILDREN INFUSION [address] [place] [address] HOSPITAL THERAPY/P MEDICAL MEDICAL ROPHYLAXI C C S /DX 1ST TO 1 HR CALCIUM 72573 CHILDREN CHILDRENS IONIZED 2 [facility] [place] [address] CHILDREN CHILDRENS INFUSION 2 [facility] THERAPY MEDICAL MEDICAL PROPHYLAX C C IS/DX EA HOUR BASIC 63573 [facility]ILDREN CHILDRENS METABOLIC 2 [facility] PANEL MEDICAL [place] [address] CHILDREN CHILDREN MAGNESIUM 2 [facility] [place] [address] CHILDREN CHILDRENS PHOSPHORU [address] [place] [address] S MEDICAL MEDICAL INORGANIC C C HEPATIC 37312 CHILDREN CHILDRENS FUNCTION 2 [facility] [place] [address] [facility] [address] IGD IGG C C IGM EACH INJ IG [id number] [address] LIQ IV MEDICAL MEDICAL NONLYOPHI C C LIZED 500 MG BLOOD [address] COMPLETE MEDICAL MEDICAL AUTO&AUTO C C DIFRNTL WBC CYTP 85218 PATHOLOGY PICKLESIM CERV/VAG 2 & ER JR ERICA AUTO THIN CYTOLOGY LAYER LAB PREP MNL SCREEN URINE 79177 [facility] PENDELETO 2 N CO N CO TEST [facility] VISUAL CENTER [place] [address] [facility] INFUSION 2 [facility] THERAPY/P MEDICAL MEDICAL ROPHYLAXI C C S /DX 1ST TO 1 [place] [address] [facility] INFUSION [address] [place] [address] THERAPY MEDICAL MEDICAL PROPHYLAX C C IS/DX EA HOUR BASIC 99791 [facility] METABOLIC 2 [facility] PANEL MEDICAL MEDICAL CALCIUM C C TOTAL BLOOD 56595 [facility] COUNT [address] [place] [address] COMPLETE MEDICAL MEDICAL AUTO&AUTO C C DIFRNTL WBC INJ IG [id number] [address] LIQ IV MEDICAL MEDICAL NONLYOPHI C C LIZED 500 MG 5% J7060 [facility] DEXTROSE/ 2 [facility] [place] [address] [facility] [address] MEDICAL IGD IGG C C IGM EACH HEPATIC 71093 [facility] CHILDRENS FUNCTION [address] [place] [address] PAN[place] [address] CHILDRENS CHILDRENS PHOSPHORU [address] [place] [address] S MEDICAL [place] [address] CHILDREN CHILDRENS MAGNESIUM 2 [facility] MEDICAL MEDICAL C C DRUG 74609 [facility]ILDREN CHILDRENS SCREEN [address] [place] [address] QUANTITAT MEDICAL MEDICAL BEN C C SIROLIMUS 5% J7060 [facility]ILDREN CHILDRENS DEXTROSE/ 2 [facility] WATER MEDICAL MEDICAL C C INJ IG J1569 [facility]ENS CHILDRENS GAMMAGARD [address] [place] [address] LIQ IV MEDICAL MEDICAL NONLYOPHI C C LIZED 500 MG BASIC 21511 [facility]DREN METABOLIC [address] [place] [address] PANEL MEDICAL [place] [address] [facility] [address] [place] [address] THERAPY MEDICAL MEDICAL PROPHYLAX C C IS/[place] [address] [facility] INFUSION [address] [place] [address] HOSPITAL THERAPY/P MEDICAL MEDICAL ROPHYLAXI C C S /DX 1ST TO 1 HR BASIC 56694 [facility] METABOLIC [address] [place] [address] PANEL MEDICAL [place] [address] [facility] [address] [place] [address] THYROXINE MEDICAL MEDICAL C C COLLECTIO 79252 CHILDREN CHILDRENS N VENOUS [address] [place] [address] BLOOD MEDICAL MEDICAL [place] [address] [facility] THYROID [address] [place] [address] STIMULATI MEDICAL MEDICAL [place] [address] [facility] MAGNESIUM [address] [place] [address] [place] [address] CHILDREN CHILDRENS PHOSPHORU [address] [place] [address] S MEDICAL MEDICAL INORGANIC C C DRUG 76341 [facility]ILDRENS CHILDRENS SCREEN [address] [place], [place] [address]AT MEDICAL MEDICAL BEN C C SIROLIMUS LYMPHOCYT 71343 CHILDREN CHILDRENS E TR [address] [place] [address] MITOGEN/A MEDICAL MEDICAL G INDUCED C C BLASTOGEN ESIS ANTIBODY 47909 CHILDREN CHILDREN TETANUS [address] [place] [address] [place] [address] [facility] GAMMAGLOB [address] [place] [address] ULIN IGA MEDICAL MEDICAL IGD IGG C C IGM EACH BLOOD 75082 [facility] COUNT [address] [place] [address] COMPLETE MEDICAL MEDICAL AUTOMATED C C FLOW 48140 [facility]DREN CHILDRENS CYTOMETRY 2 [facility] INTERJ MEDICAL MEDICAL 2-8 C C MARKERS ANTIBODY 09903 [facility]EN CHILDREN BACTERIUM [address] [place] [address] HOSPITAL NOT MEDICAL MEDICAL ELSEWHERE C C SPECIFIED ANTIBODY 79052 [facility] VARICELLA [address] [place] [address] -[facility] MEDICAL MEDICAL C C HEPATIC 44356 [facility] FUNCTION [address] [place] [address] PANEL MEDICAL MEDICAL C C BLOOD 17798 [facility] COUNT [address] [place] [address] SMEAR MEDICAL MEDICAL MCRSCP C C W/[place] [address] [facility] [place] WESTERFIE RETROPERI 2 RADIOLOGY LD IV A TONEAL REAL TIME W/IMAGE LIMITED RADIOLOGI 64552 [facility] [place] GENI C EXAM 2 RADIOLOGY LEON CHEST 2 VIEWS FRONTAL&L ATERAL PROTHROMB 71415 [facility]EN CHILDREN IN TIME [address] [place] [address] [place] [address] [facility] GAMMAGLOB [address] [place] [address] ULIN IGA MEDICAL MEDICAL IGD IGG C C IGM EACH MICROSOMA 44746 [facility] L [address] [place] [address] ANTIBODIE MEDICAL MEDICAL S EACH C C FLOW 12228 [facility] CYTOMETRY [address] [place] [address] MEDICAL MEDICAL 2-8 C C MARKERS BILE 58434 [facility] ACIDS [address] [place] [address] TOTAL MEDICAL MEDICAL C C 25 54713 [facility] HYDROXY [address] [place] [address] INCLUDES MEDICAL MEDICAL FRACTIONS C C IF PERFORMED IMMUNOASS 50007 [facility] AY [address] [place] [address] ANALYTE MEDICAL MEDICAL QUAL/SEMI C C QUAL MULTIPLE STEP ALPHA-FET 22881 [facility] OPROTEIN [address] [place] [address] [place] [address] [facility] PHOSPH[facility] [address] [place] [address] S MEDICAL [place] [address] [facility] MAGNESIUM [address] [place] [address] MEDICAL MEDICAL C C FLUORESCE 95578 [facility] NT [address] [place] [address] NONNFCT MEDICAL MEDICAL AGT ANTB C C SCREEN EA ANTIBODY GENERAL [address] PANEL MEDICAL MEDICAL C C THROMBOPL [address] [facility] TIME MEDICAL MEDICAL PARTIAL C C PLASMA/[place] B[place] [address] ABDOMINAL 2 [facility] REAL FT FT TIME DIVYA STOKSE W/IMAGE LIMITED GROUND A0425 JERILYN JERILYN MILEAGE 2 FAYETTE FAYETTE PER [place] [address] MICHAEL BAR MICHAEL BAR HEAD/BRAI 2 N W/O CONTRAST MATERIAL AMB A0427 JERILYN JERILYN SERVICE 2 FAYETTE FAYETTE ALS URBAN URBAN EMERGENCY [place] [address] MICHAEL BAR MICHAEL BAR THORACIC 2 SPINE W/O CONTRAST MATERIAL RADEX 49186 [facility] [place] RODRIGUES FOOT 2 RADIOLOGY TIFFANY COMPLETE MINIMUM 3 VIEWS THERAPEUT 64073 [place] ALESSANDRO IC PX 1/> 2 [facility] JOSE DAVID AREAS TIC EACH [address] [place] [address] [place] EBONYKAM 1/> AREAS 2 [facility] JOSE DAVID EACH 15 TIC MIN CENTER NEUROMUSC REEDUCA CHIROPRAC 08438 [place] [facility] T[facility] 2 [facility] JOSE DAVID MANIPULAT TIC BEN TX CENTER SPINAL 3-4 REGIONS STRAPPING 89073 ACS ACS KNEE 2 PRIMARY PRIMARY CARE CARE PHYSICANS MELVI Steven URNLS DIP [address] 2 [facility] STICK/TAB FT FT LET RGNT DIVYA STOKES NON-AUTO W/O MICRSCP INJ J1720 ST ST HYDROCORT 2 [facility] ISONE FT FT SODIUM DIVYA STOKES SUCCINATE TO [address] [place] [address] INFUSION 2 [facility] HYDRATION FT FT EACH DIVYA STOKES ADDITIONA L HOUR COLLECTIO [address] N VENOUS 2 [facility] BLOOD FT FT VENIPUNCT DIVYA STKOES URE THER [address] PROPH/DX 2 [facility] NJX IV FT FT PUSH DVIYA STOKES SINGLE/1S T SBST/DRUG BLOOD [address] COUNT 2 [facility] COMPLETE FT FT AUTO&AUTO DIVYA STOKES DIFRNTL WBC BASIC [address] METABOLIC 2 [facility] PANEL [place] [address] MICHAEL BAR MICHAEL BAR MAXILLOFA 2 CIAL W/O CONTRAST MATERIAL GONADOTRO 84262 [facility]DRENS PIN 1 [facility] CHORIONIC MEDICAL MEDICAL C C QUANTITAT BEN BLOOD 00951 [facility]DRENS COUNT 1 [facility] COMPLETE [place] [address] [facility]DRENS HISTOPLAS 1 [facility] M MEDICAL MEDICAL CAPSULATU C C M COMPREHEN 55947 [facility] CHILDRENS SIVE [address] [place] [address] METABOLIC MEDICAL MEDICAL PANEL C C DRUG 13193 [facility] CHILDRENS SCREEN 1 [facility] QUANTITAT [facility] MEDICAL BEN C C SIROLIMUS COLLECTIO 78471 [facility] CHILDRENS N VENOUS 1 [facility] BLOOD [facility] [place] [address] CHILDREN CHILDRENS PHOSPHORU 1 [facility] S [place] [address] [facility]ILDRENS MAGNESIUM 1 [facility] MEDICAL MEDICAL C C UNLISTED 16766 [facility]ILDRENS IMMUNOLOG 1 [facility] Y MEDICAL MEDICAL C C BLOOD 48764 [facility]DRENS COUNT 1 [facility] SMEAR [facility] MEDICAL MCRSCP C C W/[place] [address] ACS MERCHANT RIB 1 PRIMARY KET FRACTURE CARE UNCOMPLIC PHYSICANS ATED EACH M RADEX 41294 [facility] [place] KOSTELIC RIBS UNI 1 RADIOLOGY ANA W/POSTERO ANT CH MINIMUM [address] [place] [address] [facility] [place] R[place]DS[place] HEAD/BRAI 1 RADIOLOGY ROBSON N W/O CONTRAST MATERIAL INJ J1720 [facility] HYDROCORT 1 [facility] ISONE SODIUM SUCCINATE TO 100 MG THERAPEUT 03826 [facility] IC 1 [facility] PROPHYLAC TIC/DX INJECTION SUBQ/IM GONADOTRO 62925 [facility] PIN 1 [facility] CHORIONIC QUALITATI VE RADIOLOGI 18302 [facility] CHILDRENS C EXAM 1 HOSPITAL HOSPITAL CHEST 2 MEDICAL MEDICAL VIEWS C C FRONTAL&[place] [address] [facility]ILDRENS GAMMAGLOB 1 [facility] ULIN IGA MEDICAL MEDICAL IGD IGG C C IGM EACH FLOW 25956 [facility]DRENS CYTOMETRY 1 [facility] INTERPJ MEDICAL MEDICAL 2-8 C C MARKERS FLOW 78351 [facility]DRENS CYTOMETRY 1 [facility]ITAL [facility]PITAL CELL MEDICAL MEDICAL SURF C C MARKER TECHL ONLY 1ST MICROSOMA 85888 [facility] CHILDRENS L 1 [facility] ANTIBODIE MEDICAL MEDICAL S EACH C C COLLECTIO 40533 [facility]ILDRENS N VENOUS 1 [facility] BLOOD MEDICAL MEDICAL VENIPUNCT C C URE URNLS DIP 47675 [facility] CHILDRENS [address] [place] [address] STICK/TAB MEDICAL MEDICAL LET RGNT C C AUTO W/O MICROSCOP Y ALPHA-FET 35003 [facility]DRENS OPROTEIN 1 [facility] SERUM MEDICAL MEDICAL C C CREATININ 39733 [facility] CHILDRENS E OTHER 1 [facility] SOURCE MEDICAL MEDICAL C C FLOW 83985 [facility] CHILDRENS CYTOMETRY 1 [facility] CELL MEDICAL MEDICAL SURF C C MARKER TECHL ONLY EA BILE 43059 [facility] ACIDS 1 [facility] [place] [address] [facility]DRENS MAGNESIUM 1 [facility] MEDICAL MEDICAL C C 25 82701 [facility]DRENS HYDROXY 1 [facility] INCLUDES MEDICAL MEDICAL FRACTIONS C C IF PERFORMED IMMUNOASS 68680 [facility]ILDRENS AY 1 [facility] ANALYTE MEDICAL MEDICAL QUAL/SEMI [place] M[place] [address] [facility]ILDRENS PHOSPHORU 1 [facility] S MEDICAL MEDICAL INORGANIC C C PROTEIN 10235 [facility] CHILDRENS TOTAL 1 [facility] XCPT MEDICAL MEDICAL RE[place] [address] [facility] CHILDRENS THYROXINE [address] [place] [address] TOTAL MEDICAL MEDICAL C C BLOOD 24664 [facility]ILDRENS COUNT 1 [facility] SMEAR MEDICAL MEDICAL MCRSCP C C W/MNL DIFRNTL WBC COUNT GENERAL 13377 [facility] HEALTH [address] [place] [address] PANEL MEDICAL MEDICAL C C FLUORESCE 04325 [facility]ILDRENS NT 1 [facility] NONNFCT MEDICAL MEDICAL AGT ANTB C C SCREEN EA ANTIBODY BLOOD 59100 [facility]GG SMEAR 1 [facility] INTERP PSC PHYS W/WRIT REPORT INCISION 64647 ACS LEHNERT & 1 PRIMARY RAY DRAINAGE CARE ABSCESS PHYSICANS COMPLICAT M ED/MULTIP LE GONADOTRO 50170 [facility] PIN 1 [facility] [place] [address] [facility] MAXILLOFA 1 [facility] CIAL W/O CONTRAST MATERIAL RADEX 18819 RADIOLOGY [facility] JOHN SPINE 0 CERVICAL ASSOCIATE 4 OR 5 S PSC VIEWS RADIOLOGI 30119 RADIOLOGY LA[facility] JOHN C EXAM 0 CHEST 2 ASSOCIATE VIEWS S PSC FRONTAL&L ATERAL URINE 12339 [facility] 0 [facility] CANDIDO TEST VISUAL PHYSICIAN COLOR S CMPRSN METHS Encounters Encounter Start End Date Code Location Performer Type Date HOSPITAL ST - 7 7 [facility] OUTPATIEN T [facility] EDGE INITIAL 90116 [facility] PRE[facility]IV 7 7 [facility] E MEDICINE PHYSICIAN NEW PT S AGE 18-39YRS EMERGENCY 94321 [facility] 7 7 EMERGENCY DEPARTMEN T VISIT PHYSICIAN HIGH/URGE S NT SEVERITY OFFICE 67666 LANNY COLIN 7 7 [facility] T VISIT TIC 15 CENTER MINUTES OFFICE 07189 [facility] OUTPATIEN 7 7 MEDICAL T NEW 45 SERV MINUTES [facility] - 7 7 [facility] OUTPATIEN E T HOSPITALS OFFICE 61875 [facility] 7 7 [facility] T VISIT 5 E MINUTES HOSPITALS OFFICE 68984 LANNY COLIN 7 7 [facility] T VISIT TIC 15 CENTER MINUTES HOSPITAL [facility] - 6 6 [facility] OUTPATIEN E T HOSPITALS OFFICE 62431 OUTPATIEN 6 6 [facility]ALTH[facility] T VISIT 5 E MINUTES HOSPITALS OFFICE 76101 [facility] 6 6 [place] KANG T VISIT PHYSICIAN 15 S ASSIST MINUTES EMERGENCY 07311 TYLER PIÑA 6 6 PHYSICIAN CURTIS DEPARTMEN S, PLLC T VISIT MODERATE SEVERITY HOSPITAL THE - 6 6 [facility] T OFFICE [address] [facility] 6 6 [facility] MIN T VISIT HOSPITAL 25 MEDICAL MINUTES OFFICE 33337 [place] [facility] 6 6 CH[facility]OP[facility]AC T VISIT TIC 15 CENTER MINUTES EMERGENCY 91855 TYLER GARCIAEY 6 6 PHYSICIAN CURTIS DEPARTMEN S, PLLC T VISIT MODERATE SEVERITY OFFICE 88049 [facility] 6 6 Y T VISIT 5 HOSPITAL MINUTES HOSPITAL [facility] - 6 6 Y [facility] T OFFICE 17382 [facility] 6 6 [facility] GAR T VISIT TIC 15 CENTER MINUTES EMERGENCY 27146 [facility] 5 5 EMERGENCY DEPARTMEN T VISIT PHYSICIAN HIGH/URGE S NT SEVERITY OFFICE 69006 [facility] 5 5 Y T VISIT 5 HOSPITAL MINUTES OFFICE 99724 [facility] CARRANZA [facility] 5 5 MEDICAL JUS T VISIT SERV 15 FOUNDATIO MINUTES [facility] UNIVERSIT - 5 5 Y [facility] T OFFICE 33506 [facility] 5 5 CHIROPRAC T VISIT TIC 15 CENTER MINUTES OFFICE 41015 [facility] 5 5 HILL T VISIT REHABILIT 10 ATION MINUTES OFFICE 22257 [place] [facility] 5 MEDICAL SHEA T VISIT SERV 25 FOUNDATIO MINUTES [facility] CARDINAL - 5 5 [facility] OUTPATIEN [facility]ABILIT T [facility] UNIVERSIT - 5 5 Y OUTPATIEN HOSPITAL T OFFICE 91932 [facility] OUTPATIEN 5 5 Y T VISIT 5 HOSPITAL MINUTES OFFICE 61152 [facility] TRAN OUTPATIEN 5 5 HOSPITAL MIN T NEW 45 MEDICAL MINUTES ASSO OFFICE 85440 [facility] CARRANZA OUTPATIEN 5 5 MEDICAL JUS T VISIT SERV 25 FOUNDATIO MINUTES HOSPITAL CARDINAL - 5 5 [place] [facility] EMERGENCY 61939 [facility] CELLAROSI DEPT 5 5 LUZ ELENA - YORBA VISIT EMERGENCY PAT HIGH PHYS SEVERITY& THREAT FUNCJ OFFICE 41366 COLE GALVAN OUTPATIEN 5 5 COL COL T NEW 20 MINUTES EMERGENCY 82359 [facility] GERONIMO ERIC DEPT 4 4 LUZ ELENA VISIT EMERGENCY HIGH PHYS SEVERITY& THREAT [facility] - 4 4 Y OF [facility]PATIENT [place] [facility] OFFICE 14106 ROSEMARIE HOUSTON OUTPATIEN 4 4 DONNA DONNA T VISIT 15 MINUTES EMERGENCY 45068 MICHELLE HO MICHELLE HO DEPT 4 4 VISIT HIGH SEVERITY& THREAT FUNCJ OFFICE 04021 ROSEMARIE HOUSTON OUTPATIEN 4 4 DONNA DONNA T VISIT [address] 4 4 [facility] DEPARTMEN FT T VISIT DIVYA MODERATE SEVERITY HOSPITAL ST - 4 4 [facility] OUTPATIEN FT T DIVYA EMERGENCY 22065 [facility] 4 4 DEPARTMEN T VISIT HIGH/URGE NT SEVERITY EMERGENCY 39937 LINDA VARGAS DEPT 3 3 VISIT HIGH SEVERITY& THREAT FUNCJ EMERGENCY 19787 JUSTIN ANDERSON 3 3 SCO SCO DEPARTMEN T VISIT HIGH/URGE NT SEVERITY EMERGENCY 17877 MARCO LARA DEPT 3 3 RYA RYA VISIT HIGH SEVERITY& THREAT [facility] [place] [address] 3 [facility] T [facility] [place] [address] [facility] 28353 [facility] 3 3 N [facility] COMMUNITY T VISIT HOSPITA HIGH/URGE NT SEVERITY [facility] [place] [address] 3 [facility] 24356 DOMINGUEZ MIX 3 3 EITAN EITAN DEPARTMEN T VISIT MODERATE SEVERITY EMERGENCY 51108 [facility] 3 3 N [facility] COMMUNITY T VISIT HOSPITA HIGH/URGE NT SEVERITY EMERGENCY 35821 CELLAROSI CELLAROSI 3 3 - YORBA - [facility] PAT PAT T VISIT HIGH/URGE NT SEVERITY [facility] [place] [address] 3 [facility] T EMERGENCY 71888 [place] [facility] DEPT 3 3 EMERGENCY VISIT SERVICES HIGH SEVERITY& THREAT [facility] [place] [address] [facility] 54355 [place] MIX 3 3 EMERGENCY EITAN DEPARTMEN SERVICES T VISIT MODERATE SEVERITY [facility] [place] [address] 3 [facility] 63583 [facility] 3 3 HOSP MED GRE T VISIT CTR 25 MINUTES OFFICE 06560 [facility] 3 3 HOSP MED GRE T VISIT CTR 15 MINUTES HOSPITAL [place] [address] 3 Y [facility] T OFFICE 48196 UN[facility]ERS[facility] JILL OUTPATIEN 3 3 Y OF WILLI T VISIT [facility] 25 I PHY MINUTES OFFICE 60744 [facility] 3 3 Y T [facility]ISIT 5 [facility] - 3 3 [facility] T C OFFICE 72153 [facility] OUTPATIEN 3 3 HOSP MED GRE T VISIT CTR [address] - 3 3 [facility] CHILDRENS - 3 3 [facility] T C OFFICE 05062 [facility] CUTH[facility] OUTPATIEN 3 3 HOSPITAL EITAN T VISIT MEDICAL 25 C MINUTES EMERGENCY 38372 [facility] DEPT 3 3 Y OF VIR VISIT [facility] HIGH I PHY SEVERITY& THREAT [facility] CHILDRENS - 3 3 [facility] CHILDRENS - 3 3 [facility] CHILDRENS - 2 2 [facility] OFFICE 48340 CHILDREN [facility] OUTPATIEN 2 2 HOSP MED T NEW 45 CTR MINUTES OFFICE 89818 [facility] OUTPATIEN 2 2 HOSPITAL EITAN T VISIT MEDICAL 25 C MINUTES OFFICE 80010 [facility] CUTHRELL OUTPATIEN 2 2 HOSP MED EITAN T VISIT CTR 25 MINUTES HOSPITAL [facility]DRENS - 2 2 [facility] PER[facility] 98663 [facility] PENDE[facility] PREVENTIV 2 2 N CO N CO E MED EST [facility] PATIENT CENTER CENTER 18-39 YRS OFFICE 05288 CHILDRENS FILIPOVIC OUTPATIEN 2 2 HOSP MED H EMILY T VISIT CTR 25 MINUTES HOSPITAL [facility] - 2 2 [facility] 2 2 [facility] 28205 [facility]DRENS RAUL OUTPATIEN 2 2 HOSPITAL MAR T VISIT MEDICAL 25 C MINUTES OFFICE 66326 [facility]DRENS [place] OUTPATIEN 2 2 HOSPITAL GRE T VISIT MEDICAL 40 C MINUTES [facility]OSPITAL [facility] - 2 2 HOSPITAL OUTPATI MEDICAL T C OFFICE 37465 [facility] OUTPATIEN 2 2 HOSPITAL T VISIT MEDICAL 15 C MINUTES OFFICE 13994 [facility] OUTPATIEN 2 2 HOSPITAL T NEW 30 MEDICAL MINUTES [facility] - [facility] 30698 [facility] STACK [email or web address] DEPT 2 2 PRIMARY VISIT CARE HIGH PHYSICANS SEVERITY& M THREAT FUNCJ EMERGENCY 56368 [facility] 2 2 PRIMARY EDW DEPARTMEN CARE T VISIT PHYSICANS HIGH/URGE M NT SEVERITY OFFICE 22967 [facility] T VISIT MEDICAL 40 C MINUTES HOSPITAL CHILDRENS - OTHER 2 2 HOSPITAL MEDICAL [facility] - [facility] T DIVYA EMERGENCY 62812 [facility] DEPT 2 2 LUZ ELENA VISIT EMERGENCY HIGH PHYS SEVERITY& THREAT FUNCJ EMERGENCY 49948 ACS 2 2 PRIMARY DEPARTMEN CARE T VISIT PHYSICANS HIGH/URGE M NT SEVERITY EMERGENCY 93215 ACS 2 2 PRIMARY DEPARTMEN CARE T VISIT PHYSICANS MODERATE M SEVERITY OFFICE 80312 [facility] OUTPATI[facility] 2 2 [facility] T NEW 30 TIC MINUTES CENTER EMERGENCY 51076 ACS 2 2 PRIMARY DEPARTMEN CARE T VISIT PHYSICANS HIGH/URGE M NT SEVERITY EMERGENCY 71742 [facility] DEPT 2 2 VISIT HIGH SEVERITY& THREAT FUNCJ EMERGENCY 47729 ST [facility] DIVYA HIGH/URGE NT SEVERITY [facility] - 2 2 [facility] OUTPATIEN FT T DIVYA EMERGENCY 82687 DIVYA DIVYA 2 2 DIANA DIANA DEPARTMEN T VISIT HIGH/URGE NT SEVERITY OFFICE 30018 [facility] OUTPATIEN 1 1 HOSPITAL T VISIT MEDICAL 40 C MINUTES OFFICE 89004 YAZIGI YAZIGI OUTPATIEN 1 1 NAD NAD T VISIT 25 MINUTES HOSPITAL CHILDRENS - OTHER 1 1 HOSPITAL MEDICAL C EMERGENCY 42808 [facility] 1 1 PRIMARY KET DEPARTMEN CARE T VISIT PHYSICANS HIGH/URGE M NT SEVERITY [facility] - 1 1 [facility] OUTPATIEN T EMERGENCY 43899 [facility] SERRANO 1 1 PRIMARY PHI DEPARTMEN CARE T VISIT PHYSICANS MODERATE M SEVERITY EMERGENCY 25767 [facility] 1 1 EAST DEPARTMEN T VISIT HIGH/URGE NT SEVERITY OFFICE 40767 [facility] OUTPATIEN 1 1 HOSPITAL T VISIT MEDICAL 40 C MINUTES OFFICE 16574 [facility]DRENS YAZIGI OUTPATIEN 1 1 HOSP MED NAD T VISIT CTR 25 MINUTES HOSPITAL [facility] - OTHER 1 1 H[facility]PITAL MEDICAL C EMERGENCY [facility] [facility] 1 1 E[facility] DEPARTMEN T VISIT LOW/MODER SEVERITY [facility] - 1 1 [facility] OUTPATIEN T EMERGENCY 42147 [facility] 1 1 PRIMARY RAY DEPARTMEN CARE T VISIT PHYSICANS HIGH/URGE M NT SEVERITY EMERGENCY [facility]12 [facility] 1 1 HOSPITAL DEPARTMEN T VISIT MODERATE SEVERITY [facility] - 1 1 H[facility]PITAL OUTPATIEN T EMERGENCY [facility]79 [facility] 1 1 [facility] DEPARTMEN T VISIT MODERATE SEVERITY [facility] - 1 1 EAST OUTPATIEN T EMERGENCY 50932 [facility] STACK ME[facility]U 1 1 PRIMARY DEPARTMEN CARE T VISIT PHYSICANS HIGH/URGE M NT SEVERITY EMERGENCY 72617 EMERGENCY EMERY CHICHI 0 0 CARE DEPARTMEN PHYS T VISIT [facility] HIGH/URGE NT SEVERITY OFFICE [address]74[address] [facility] OUTPATIEN 0 0 [facility] SHE T VISIT 25 PHYSICIAN MINUTES S EMERGENCY 17329 EMERGENCY EMERY CHICHI 0 0 CARE DEPARTMEN PHYS T VISIT [facility] HIGH/URGE NT SEVERITY OFFICE [address] [facility] OUTPATIEN 0 0 [place] SHE T VISIT 25 PHYSICIAN MINUTES S EMERGENCY [address] [facility] 0 0 [place] [facility] DEPARTMEN MED CTR T VISIT HIGH/URGE NT SEVERITY [facility]OSPITAL ST - 0 0 [facility] OUTPATIEN T MEDICALCE NTER EMERGENCY [id number] 0 0 [facility] DEPARTMEN T VISIT MEDICALCE MODERATE NTER SEVERITY EMERGENCY 94705 EMERGENCY VEST ANA 0 0 CARE DEPARTMEN PHYS T VISIT [facility] HIGH/URGE NT SEVERITY OFFICE [address] [facility], OUTPATIEN 0 0 [facility] CANDIDO T VISIT 15 PHYSICIAN MINUTES S OFFICE [address] [facility], OUTPATIEN 0 0 [facility] CANDIDO T VISIT 25 PHYSICIAN MINUTES S
--- OUTSIDE RECORDS SUMMARY | 2017-03-29 04:21 | External Medical Summary Rpt | CCD ---
Author Author , DEION ALBARRAN Address Unknown Phone [email or web address] Immunization Name Date Rout CVX Reac Dose [...]
--- OUTSIDE RECORDS SUMMARY | 2017-03-29 04:21 | External Medical Summary Rpt | CCD ---
Author Author , DEION ALBARRAN Address Unknown Phone [email or web address] Immunization Name Date Rout CVX Reac Dose [...]
== END 2017-03-28 17:41 | disposition short-term general hospital (02) ==
LOC: ER 13:35
PROVIDERS: General Practice
DX: E21.0 Primary hyperparathyroidism (principal); E27.1 Primary adrenocortical insufficiency
CPT/HCPCS: J2405